=== PATIENT | male | born 1950 | race Caucasian/White ===

== ENCOUNTER 2017-11-21 10:00 | Inpatient (IN) ==
[2017-11-21 12:02] LABS: Basophils # (Auto) 0.1 K/mcL (0.0-0.3); Basophils % (Auto) 0.8 % (0.0-2.0); Eosinophils # (Auto) 0.1 K/mcL (0.0-0.7); Eosinophils % (Auto) 1.7 % (0.0-7.0); Granulocytes % (Auto) 55.5 % (38.0-78.0); Lymphocytes % (Auto) 36.3 % (15.5-49.0); Mean Cell Volume 85.8 fL (80.0-100.0); Mean Corpuscular HGB Conc 33.9 g/dL (31.0-36.0); Mean Corpuscular Hemoglobin 29.1 pg (26.0-34.0); Monocytes # (Auto) 0.5 K/mcL (0.1-0.9); Monocytes % (Auto) 5.7 % (1.0-12.0); Platelet Count 197 K/mcL (140-440); RBC 4.76 M/mcL (4.50-5.90); Red Cell Distribution Width 13.3 % (11.5-14.5)
[2017-11-21 12:14] LABS: Blood Urea Nitrogen 29 mg/dl (8-23)
[2017-11-21 13:17] LABS: Appearance,Urine CLEAR; Bacteria,Urine 0 /hpf (0); Bilirubin,Urine NEG (NEG); Color,Urine YELLOW; Glucose,Urine (UA) NEGATIVE (NEG); Leukocyte Esterase,Urine NEG /uL (NEG); Mucus,Urine FEW /hpf (0); Protein,Urine NEG (NEG); Urine Blood NEG mg/dL (<0.03); Urine Hyaline Cast 7 /lpf (0-2); Urine RBC 2 /hpf (0-1); Urine Squamous Epithelial Cell < 1 /hpf (0-4); Urine WBC 1 /hpf (0-4); Urobilinogen,Urine NEG (NEG)
[2017-11-27] MEDS ORDERED: CELECOXIB 200 MG CAPSULE PO SCH (06:00)
[2017-11-27] MEDS ORDERED: oxyCODONE 10 MG TAB.ER.12H PO SCH (06:00)
[2017-11-27] MEDS ORDERED: 0.9 % SODIUM CHLORIDE 9 ML, KETOROLAC 30 MG, ROPIVACAINE HCL/PF 49.5 ML, EPINEPHrine 0.... IJ SCH (06:00)
[2017-11-27] MEDS ORDERED: PREGABALIN 75 MG CAPSULE PO SCH (06:00)
[2017-11-27] MEDS ORDERED: ceFAZolin 1 GM VIAL IV SCH (06:00)
[2017-11-27] MEDS ORDERED: GENTAMICIN SULFATE 800 MG/20 ML VIAL IR ONE (08:49)
[2017-11-27] MEDS ORDERED: GLYCOPYRROLATE 0.2 MG/ML VIAL IV ONE (09:25)
[2017-11-27] MEDS ORDERED: LIDOCAINE HCL/PF 100 MG/5 ML SYRINGE IV ONE (09:25)
[2017-11-27] MEDS ORDERED: MIDAZOLAM 5 MG/5 ML VIAL ONE (09:25)
[2017-11-27] MEDS ORDERED: DEXAMETHASONE 10 MG/ML VIAL ONE (09:25)
[2017-11-27] MEDS ORDERED: PROPOFOL 200 MG/20 ML VIAL IV ONE (09:25)
[2017-11-27] MEDS ORDERED: ONDANSETRON 4 MG/2 ML VIAL ONE (09:25)
[2017-11-27] MEDS ORDERED: BISACODYL 10 MG SUPP.RECT PR PRN (10:53)
[2017-11-27] MEDS ORDERED: MAGNESIUM HYDROXIDE 30 ML ORAL.SUSP PO PRN (10:53)
[2017-11-27] MEDS ORDERED: ONDANSETRON 4 MG/2 ML VIAL IV PRN ×2 (10:53→10:57)
[2017-11-27] MEDS ORDERED: BENZOCAINE/MENTHOL 1 LOZENGE PO PRN ×2 (10:53→10:57)
[2017-11-27] MEDS ORDERED: POLYETHYLENE GLYCOL 3350 17 GM PACKET PO PRN (10:53)
[2017-11-27] MEDS ORDERED: TRANEXAMIC ACID 1,000 MG/10 ML VIAL IV ONE (10:53)
[2017-11-27] MEDS ORDERED: ACETAMINOPHEN 325 MG TABLET PO PRN (10:53)
[2017-11-27] MEDS ORDERED: FLEETS ADULT ENEMA PR PRN (10:53)
[2017-11-27] MEDS ORDERED: HYDROmorphone 2 MG/ML VIAL IV PRN ×2 (10:53→10:57)
[2017-11-27] MEDS ORDERED: TEMAZEPAM 15 MG CAPSULE PO PRN (10:53)
--- NOTE | 2017-11-27 10:53 | Brief Operative Note ---
Date of procedure: 11/27/17 Pre-op diagnosis: left knee djd severe Post-op diagnosis: same Procedure: left tka Grafts/Implants: Yes Anesthesia: VIJAYA Surgeon: Faheem Marcos Airplane Tube Builder: Dinesh Juárez Estimated blood loss (cc): 20 Tourniquet Time (Minutes): 62 Specimens Removed/Pathology: none sent Condition: stable Disposition: PACU
[2017-11-27] MEDS ORDERED: ATROPINE SULFATE 0.4 MG/ML VIAL IV PRN (10:57)
[2017-11-27] MEDS ORDERED: FLUMAZENIL 0.1 MG/ML ML IV PRN (10:57)
[2017-11-27] MEDS ORDERED: METHOCARBAMOL 1,000 MG/10 ML VIAL IV PRN (10:57)
[2017-11-27] MEDS ORDERED: diphenhydrAMINE 50 MG/ML VIAL IV PRN (10:57)
[2017-11-27] MEDS ORDERED: IPRATROPIUM/ALBUTEROL 3 ML AMPUL.NEB NEB PRN (10:57)
[2017-11-27] MEDS ORDERED: METOPROLOL TARTRATE 5 MG/5 ML VIAL IV PRN (10:57)
[2017-11-27] MEDS ORDERED: PROMETHAZINE 25 MG/ML VIAL IV PRN (10:57)
[2017-11-27] MEDS ORDERED: ePHEDrine 50 MG/ML AMPUL IV PRN (10:57)
[2017-11-27] MEDS ORDERED: fentaNYL 100 MCG/2 ML VIAL IV PRN (10:57)
[2017-11-27] MEDS ORDERED: NALOXONE HCL 0.4 MG/ML VIAL IV PRN (10:57)
[2017-11-27] MEDS ORDERED: MEPERIDINE 25 MG/ML SYRINGE IV PRN (10:57)
[2017-11-27] MEDS ORDERED: LACTATED RINGERS 1,000 ML IV SCH (11:00)
--- NOTE | 2017-11-27 11:51 | XRay Report ---
HISTORY: : Post-Op Total Knee FINDINGS: There is well-positioned total knee prosthesis. There is a fragment of a screw in the metaphyseal region of the distal femur. This may be from prior ACL repair. Large spur is present along the inferior border of the patella with a smaller spur along the superior margin. IMPRESSION: Well-positioned left knee prosthesis Interpreted and Authenticated by: Girma Wyatt 11/27/17
--- NOTE | 2017-11-27 12:09 | Operative Note ---
DATE OF OPERATION: 11/27/2017 PREOPERATIVE DIAGNOSIS: Left knee degenerative arthritis throughout. POSTOPERATIVE DIAGNOSIS: Left knee degenerative arthritis throughout. PROCEDURE: Total knee arthroplasty using the ID.me robot. SURGEON: Faheem Marcos M.D. MILLING GENERAL SUPERINTENDENT: Dinesh Juárez PA-C. ANESTHESIA: General LMA anesthesia. COMPLICATIONS: None. TOURNIQUET TIME: 62 minutes. IMPLANTS: Size 5 femur and size 6 tibial baseplate with a 9 mm poly insert and a 39 mm patellar button. DESCRIPTION OF PROCEDURE: The patient was brought to the operating room and put to sleep with general LMA anesthesia. A timeout was performed. We confirmed the operative site. Leg was exsanguinated and tourniquet inflated to 250 pounds of pressure. A midline incision was made, midvastus approach performed. Two pins above and below the knee were placed with the arrays. We set the center of hip rotation, medial and lateral malleolus. Intraarticular pins were registered, as well as thirty points on the femur and tibia. We balanced the knee at 90 and 15 degrees. Then we used the robot to help calculate position of the implant. Once we did this and everything balanced very nicely, we proceeded with the case. The tibial cut was performed first, registering the robot and the tibial cut made. Then we registered the femur and robot again and made our anterior and posterior and anterior chamfer cuts. We changed the blade and then registered the robot again and cut the distal cut and the posterior chamfer. These bony fragments were removed. The robot was removed and removed any remaining osteophytes. We then set rotation of the tibial base plate using the robot, size 6 tibial component and we drilled. We had to remove an interference screw for the ACL. Once this was done, we then cemented into place after we trialed the femur. The 9 appeared to be very stable. The robot noted 0 degrees extension and flexion also calculated 3 degrees of varus. We irrigated thoroughly and then cemented into place a size 6 tibial baseplate, size 5 femur, 9 mm poly. The patella was cut to 16 mm, and a 39 mm patellar button was placed. Excellent fixation. We took the knee and put it at 45 degrees until all the cement was dry. We then reinspected the knee and then removed any loose debris. A thorough irrigation was performed. Midvastus approach was closed with #1 Stratafix suture x2. Skin was closed with 2-0 Vicryl and 3-0 Monocryl. Portals were closed with 4-0 nylon. The patient tolerated this well. Sterile bandage was applied. [email or web address] Job ID: [id number] Doc ID: [id number] Faheem Marcos MD
[2017-11-27] MEDS: 0.45 % SODIUM CHLORIDE 1,000 ML IV SCH ×2 (12:15→22:02)
[2017-11-27] MEDS: KETOROLAC 15 MG/ML VIAL IV SCH ×2 (12:22→18:34)
[2017-11-27] MEDS: 0.9 % SODIUM CHLORIDE 10 ML SYRINGE IV SCH ×2 (13:17→20:46)
[2017-11-27] MEDS: oxyCODONE HCL 5 MG TABLET PO PRN ×2 (15:07→22:02)
[2017-11-27] MEDS: ceFAZolin 1 GM VIAL IV SCH (15:55)
[2017-11-27] MEDS: ASPIRIN 325 MG ENTERIC COATED TABLET PO SCH (20:45)
[2017-11-27] MEDS: DOCUSATE SODIUM 100 MG CAPSULE PO SCH (20:45)
[2017-11-27] MEDS ORDERED: SENNOSIDES 1 TABLET PO SCH (21:00)
[2017-11-28] MEDS: KETOROLAC 15 MG/ML VIAL IV SCH ×3 (00:05→12:26)
[2017-11-28] MEDS: ceFAZolin 1 GM VIAL IV SCH (00:05)
[2017-11-28] MEDS: oxyCODONE HCL 5 MG TABLET PO PRN ×3 (03:48→12:27)
[2017-11-28] MEDS: 0.9 % SODIUM CHLORIDE 10 ML SYRINGE IV SCH ×2 (04:58→14:00)
[2017-11-28] MEDS: 0.45 % SODIUM CHLORIDE 1,000 ML IV SCH (07:08)
--- NOTE | 2017-11-28 07:44 | Discharge Summary ---
Ortho Discharge - TKA - Patient Instructions Diet: Regular Diet Activity: activity as tolerated, weight bearing as tolerated Total Knee Protocol: For Total Knee: Start ROM GRACIE with stationary bike or rocking chair. Work on gaining full extension of knee. Posterior dislocation precautions provided. Hip abductor strengthening and gait training instructions provided. Apply Cryocuff as instructed. Dressing Care: May shower in 2 days, Aquacel Ag - leave on for 5 days - Follow Up Plan Follow Up Appointments: Taran Wheeler PA-C [Physician Office Professional] - 12/18/17 1:40 pm Disposition: Home, Self-Care Prognosis: Good Rehab Potential: Good I certify that the patient requires SNF services: No Overall status at discharge: patient is progressing back to baseline - Orders For Discharge Prescriptions: oxyCODONE HCL [Roxicodone] 5 - 10 mg PO Q4HP PRN #60 tab PRN Reason: Pain Level 3-6 Additional Discharge Orders: Physical Therapy at Discharge - TKA Location: None Selected CPM Discharge Order Location: None Selected Toilet Riser Discharge Order Location: None Selected Walker Location: None Selected
[2017-11-28] MEDS: ASPIRIN 325 MG ENTERIC COATED TABLET PO SCH (08:24)
[2017-11-28] MEDS: DOCUSATE SODIUM 100 MG CAPSULE PO SCH (08:24)
[2017-11-28] MEDS ORDERED: LISINOPRIL 20 MG TABLET PO SCH (09:00)
[2017-11-28] MEDS ORDERED: LISINOPRIL 10 MG TABLET PO SCH (09:00)
== END 2017-11-28 14:02 | disposition home or self-care (01) | DRG 470 ==
LOC: MEDSUR 11-27 06:26
PROVIDERS: ADMIT Orthopaedic Surgery; ATTEND Orthopaedic Surgery

== ENCOUNTER 2018-11-23 08:48 | Inpatient (IN) ==
[2018-11-23] MEDS ORDERED: ONDANSETRON 4 MG/2 ML VIAL IV ONE (09:11)
[2018-11-23] MEDS ORDERED: LACTATED RINGERS 1,000 ML IV ONE ×2 (09:11→10:59)
--- NOTE | 2018-11-23 09:14 | Emergency Department Note ---
Nausea/Vomiting/Diarrhea HPI - General Chief complaint: Nausea/Vomiting/Diarrhea Stated complaint: Diarrhea since Monday 20lbs weight loss Time Seen by Provider: 11/23/18 09:08 Source: patient Mode of arrival: ambulatory Limitations: no limitations - History of Present Illness HPI Narrative: This patient has had nausea vomiting diarrhea and abdominal cramps for the last 3 days. He thinks he is lost 20 pounds with sounds a little bit extreme. Diarrhea has been watery without blood or mucus. He did eat some chicken and is not sure how well cooked it was. No other exposures that he is a suspicious of. Has no chronic GI problems. Does feel thirsty and dehydrated. - Related Data Home Medications Medication Instructions Recorded Confirmed Lisinopril [Zestril] 10 mg PO DAILY 11/21/17 11/27/17 Lisinopril [Zestril] 20 mg PO DAILY 11/21/17 11/27/17 Previous Rx's Medication Instructions Recorded oxyCODONE HCL [Roxicodone] 5 - 10 mg PO Q4HP PRN #60 tab 11/28/17 Allergies Allergy/AdvReac Type Severity Reaction Status Date / Time No Known Drug Allergies Allergy Verified 11/04/18 19:41 Review of Systems All systems ED: reviewed and negative except as stated. Past Medical History - Past Medical History Medical history: Reports: arthritis, hypertension Surgical history ED: Reports: orthopedic, other, tonsillectomy - Social History smoking status: Never smoker Physical Exam Limitations: no limitations General appearance: alert Head: atraumatic Eye: Present: normal appearance ENT: normal exam Neck: Present: normal inspection Chest: Present: normal inspection Respiratory: Present: normal lung sounds bilaterally Cardiovascular: Present: regular rate, normal rhythm, normal heart sounds Abdominal: Present: soft. Absent: distention, tenderness Neurological: Present: alert Psychiatric: Present: normal affect Skin: Present: warm, dry Course Vital Signs Temperature 98.9 F 11/23/18 08:49 Pulse Rate 117 H 11/23/18 08:49 Respiratory Rate 18 11/23/18 08:49 Blood Pressure 97/66 11/23/18 08:49 Pulse Oximetry (%) 93 11/23/18 08:49 Temperature 98.9 F 11/23/18 08:49 Pulse Rate 103 H 11/23/18 12:57 Respiratory Rate 23 H 11/23/18 12:57 Blood Pressure 134/85 11/23/18 12:31 Pulse Oximetry (%) 92 11/23/18 12:57 Nausea/Vomiting/Diarrhea - [facility] Narrative Medical decision making narrative: Patient seems to have acute renal failure in part of it may be prerenal but he had a normal creatinine a year ago and today at 6. I discussed case with both the interface developer the hospitalist and he will be admitted to the hospital. - Lab Data Lab results reviewed: Yes I reviewed the patient's lab results. Result diagrams: 11/23/18 09:27 11/23/18 10:54 Lab Results 11/23/18 11/23/18 11/23/18 Range/Units 09:27 09:27 10:54 WBC 11.6 H (4.5-11.0) K/mcL RBC 7.00 H (4.50-5.90) M/mcL Hgb 19.6 H (13.5-16.5) g/dL Hct 58.7 H (41.0-55.0) % MCV 83.9 (80.0-100.0) fL MCH 28.0 (26.0-34.0) pg MCHC 33.4 (31.0-36.0) g/dL RDW 13.6 (11.5-14.5) % Plt Count 266 (140-440) K/mcL MPV 9.6 (7.4-10.4) fL Gran % 71.1 (38.0-78.0) % Lymph % (Auto) 17.0 (15.5-49.0) % [place] % (Auto) 11.8 (1.0-12.0) % Eos % (Auto) 0.1 (0.0-7.0) % Baso % (Auto) 0 (0.0-2.0) % Gran # 8.3 H (1.8-8.0) K/mcL Lymph # (Auto) 2.0 (1.5-4.8) K/mcL [place] # (Auto) 1.4 H (0.1-0.9) K/mcL Eos # (Auto) 0 (0.0-0.7) K/mcL Baso # (Auto) 0 (0.0-0.3) K/mcL Sodium TNP 130 L Potassium TNP 3.1 L Chloride TNP 86 L Carbon Dioxide TNP 16 L Anion Gap TNP 28.0 H BUN TNP 73 H Creatinine TNP 6.0 H* GFR Calculation TNP 9 Glucose TNP 160 H Calcium TNP 9.5 Total Bilirubin TNP 0.8 AST TNP 19 ALT TNP 19 Alkaline Phosphatase TNP 83 Total Protein TNP 8.5 H Albumin TNP 3.9 Globulin TNP 4.6 H Albumin/Globulin Ratio TNP 0.8 L Disposition Pt seen by MANAGER OF INTERNAL/PA only: No Clinical Impression: Gastroenteritis, Acute renal failure Disposition: Xfer As Inpt ([facility]) Condition: Good Referrals: Suki Carney MD [Primary Care Provider] - Time of Disposition: 13:34
[2018-11-23 10:14] LABS: Basophils # (Auto) 0 K/mcL (0.0-0.3); Basophils % (Auto) 0 % (0.0-2.0); Eosinophils # (Auto) 0 K/mcL (0.0-0.7); Eosinophils % (Auto) 0.1 % (0.0-7.0); Granulocytes % (Auto) 71.1 % (38.0-78.0); Hematocrit 58.7 % (41.0-55.0); Hemoglobin 19.6 g/dL (13.5-16.5); Mean Cell Volume 83.9 fL (80.0-100.0); Mean Corpuscular HGB Conc 33.4 g/dL (31.0-36.0); Mean Platelet Volume 9.6 fL (7.4-10.4); Monocytes # (Auto) 1.4 K/mcL (0.1-0.9); Monocytes % (Auto) 11.8 % (1.0-12.0); Platelet Count 266 K/mcL (140-440); Red Cell Distribution Width 13.6 % (11.5-14.5); WBC 11.6 K/mcL (4.5-11.0)
[2018-11-23] MEDS ORDERED: PHENobarb/HYOSCY/ATROPINE/SCOP 1 DOSE BOTTLE PO ONE (11:28)
[2018-11-23] MEDS ORDERED: ESOMEPRAZOLE 40 MG VIAL IV SCH (11:30)
[2018-11-23 12:05] LABS: ALT/SGPT 19 U/l (0-40); AST/SGOT 19 U/l (0-37); Albumin 3.9 gm/dL (3.2-5.2); Albumin/Globulin Ratio 0.8 (1.0-2.3); Alkaline Phosphatase 83 U/L (39-117); Bilirubin,Total 0.8 mg/dL (0.0-1.0); Blood Urea Nitrogen 73 mg/dl (8-23); Calcium 9.5 mg/dl (8.6-10.4); Carbon Dioxide 16 mmol/L (22-30); Chloride 86 mmol/L (96-108); Globulin 4.6 gm/dL (2.2-3.7); Glomerular Filtration Rate 9; Glucose 160 mg/dL (70-105)
--- NOTE | 2018-11-23 13:03 | Nephrology Consult Note ---
History of Present Illness - Reason for Consult Patient information: Note initiated : 11/23/18 at 1:01 pm Patient: Jonas Noble 68 y/o M admitted on for Diarrhea Since Monday 20 lb Weight Loss. Consult date: 11/23/18 acute renal failure, hyponatremia, hypokalemia, metabolic acidosis Requesting physician: Camden Carter - Chief Complaint Dirrhea - History of Present Illness Jonas Noble is a 68-year-old male with hypertension, chronic kidney disease stage 3 and arthritis presented to ED on 11/23/18 for nausea, vomiting, diarrhea and abdominal cramps for 3 days and being admitted. The patient has no history of kidney problems and not seen by a senior naval parachutist in the past. He reported decreased urine output but no other symptoms. Review of Systems Constitutional: fatigue, lethargy Nose, mouth and throat: no nasal congestion, no sore throat Cardiovascular: no chest pain, no palpatations Respiratory: no cough, no dyspnea Gastrointestinal: abdominal pain, diarrhea, nausea, vomiting Genitourinary: no dysuria, no hematuria Musculoskeletal: no back pain, no joint swelling Integumentary: no rash, no wounds Neurological: no confusion, no focal weakness Psychiatric: no anxiety, no panic attacks Endocrine: no cold intolerance, no heat intolerance Hematologic/Lymphatic: no easy bleeding, no easy bruising Allergic/Immunologic: no tongue swelling, no uticaria Past History Past medical history: Hypertension Chronic kidney disease stage 3 Arthritis Past surgical history: Left total knee arthroplasty Past family history: No history of kidney disease in family Past social history: Never smoker Medications and Allergies Home Medications Medication Instructions Recorded Confirmed Type Lisinopril [Zestril] 10 mg PO DAILY 11/21/17 11/27/17 History Lisinopril [Zestril] 20 mg PO DAILY 11/21/17 11/27/17 History oxyCODONE HCL [Roxicodone] 5 - 10 mg PO Q4HP PRN #60 tab 11/28/17 Rx Allergies Allergy/AdvReac Type Severity Reaction Status Date / Time No Known Drug Allergies Allergy Verified 11/04/18 19:41 Exam - Vital Signs Vital signs: Temp Pulse Resp BP Pulse Ox 98.9 F 115 H 19 134/85 93 11/23/18 08:49 11/23/18 09:23 11/23/18 12:31 11/23/18 12:31 11/23/18 12:31 - General Appearance General appearance: appears started age, fatigue EENT: mucous membranes dry Neck: supple Respiratory: clear Cardiology: no edema Gastrointestinal: no tenderness Integumentary: cool/clammy Neurologic: no focal deficit, alert and oriented x3 Musculoskeletal: no deformities Psychiatric: mood/affect appropriate, cooperative Results - Lab Results 11/23/18 09:27 11/23/18 10:54 Most recent lab results Calcium 9.5 mg/dl (8.6-10.4) 11/23/18 10:54 Assessment and Plan (1) Acute on chronic renal failure Jonas Noble is a 68-year-old male with hypertension, chronic kidney disease stage 3 and arthritis presented to ED on 11/23/18 for nausea, vomiting, diarrhea and abdominal cramps for 3 days and being admitted. Acute kidney injury on chronic kidney disease stage 3 with hypokalemia, high anion gap metabolic acidosis and hyponatremia associated with severe dehydration, present on arrival. Work up: Urinalysis pending. Renal US requested. Recommendations/Plan: IV fluid resuscitation and electrolyte replacement. No acute hemodialysis need. Hold MITCH. Avoid NSAIDs, nephrotoxic medications and IV contrast. Monitor BMP and urine output. Status: Acute Qualifiers: Acute renal failure type: unspecified Chronic kidney disease stage: stage 3 (moderate) Qualified Code(s): N17.9 - Acute kidney failure, unspecified; N18.3 - Chronic kidney disease, stage 3 (moderate) (2) Hyponatremia Please see above Status: Acute Priority: Medium (3) Metabolic acidosis Please see above Status: Acute Priority: Medium (4) Hypokalemia Please see above Status: Acute Priority: Medium
[2018-11-23 13:54] LABS: Appearance,Urine CLOUDY; Bacteria,Urine 0 /hpf (0); Bilirubin,Urine NEG (NEG); Color,Urine YELLOW; Culture Indicated,Urine NO; Glucose,Urine (UA) 50 mg/dL (NEG); Ketones,Urine NEG (NEG); Leukocyte Esterase,Urine NEG /uL (NEG); Mucus,Urine MOD /hpf (0); Nitrate,Urine NEG (NEG); Protein,Urine 100 mg/dL (NEG); Specific Gravity,Urine 1.018 (1.000-1.035); Urine Blood NEG mg/dL (<0.03); Urine Hyaline Cast 97 /lpf (0-2); Urine RBC 0 /hpf (0-1); Urine Squamous Epithelial Cell 0 /hpf (0-4); Urine WBC 7 /hpf (0-4); Urobilinogen,Urine NEG (NEG)
--- NOTE | 2018-11-23 14:25 | Internal Med History&Physical ---
Medical - H&P: [facility] Patient information: Note initiated : 11/23/18 at 2:20 pm Service Date, if different from initiated Date: [] Patient: Jonas Noble a 68 y/o M admitted on for Diarrhea Since Monday 20 lb Weight Loss. Chief Complaint: [] Chief complaint: Diarrhea and weakness History of present illness: Mr. Noble is a 68 year old M with no significant medical history except for hypertension who presents with profuse persistent watery diarrhea over the last few days that started Monday and has resulted over 20 pound weight loss. He is experiencing diarrhea every 30 minutes and has gotten progressively weak fatigue lethargic. He is hard developing generalized cramps unable to function. Patient denies sick contacts or recent change in medication. He further denies [id number] medication or travel outside [facility] or attending [employer]. He denies eating uncooked or raw meats or drinking out of spring. Patient denies associated fever or blood in stool or hematemesis. He experienced minimal nausea but no arthralgia or rash. He further denies prior similar episodes of hospitalization or history of inflammatory bowel disease. Initial work-up in the ER was consistent with acute renal failure with a creatinine of 6, potassium 3.1, anion gap acidosis 28 with a bicarb 16. Stool samples were sent. Patient was started on crystalloids and nephrology was consulted. Hospitalist service was requested for admission At the time of evaluation patient is alert and oriented. He was able to endorse a history as above. Review of systems 10 point review system was performed and is negative except was discussed above Medical - H&P: PMH Medical history: Hypertension Obesity degenerative joint disease Chronic kidney disease stage III Surgical history: Left TKA Pertinent family history: Adopted Social history: No history of smoking or alcohol Lives alone Medical - H&P: Meds Home Medications Medication Instructions Recorded Confirmed Type Lisinopril [Zestril] 30 mg PO DAILY 11/21/17 11/23/18 History Multivitamin Liquid 30 ml PO DAILY 11/23/18 11/23/18 History Allergies Allergy/AdvReac Type Severity Reaction Status Date / Time No Known Drug Allergies Allergy Verified 11/04/18 19:41 Medical - H&P: Exam - Constitutional Vitals: Temp Pulse Resp BP Pulse Ox 98.9 F 103 H 15 112/73 95 11/23/18 08:49 11/23/18 12:57 11/23/18 14:01 11/23/18 14:01 11/23/18 14:01 General appearance: morbidly obese Exam: Alert and oriented Head normocephalic Neck no lymphadenopathy Oral cavity dry No ear nose discharge Eye movement symmetrical S1-S2 regular rhythm, tachycardia Diminished breath sounds bases Abdomen minimally distended but soft nontender Lower extremity no cyanosis clubbing, dry skin No joint swelling erythema Skin no suspicious lesion Psych alert cooperative Neuro nonfocal Medical - H&P: Reslt - Labs CBC & Chem 7: 11/23/18 09:27 11/23/18 10:54 Labs: Short CBC 11/23/18 Range/Units 09:27 WBC 11.6 H (4.5-11.0) K/mcL Hgb 19.6 H (13.5-16.5) g/dL Hct 58.7 H (41.0-55.0) % Plt Count 266 (140-440) K/mcL BMP 11/23/18 11/23/18 09:27 10:54 Sodium TNP 130 L Potassium TNP 3.1 L Chloride TNP 86 L Carbon Dioxide TNP 16 L BUN TNP 73 H Creatinine TNP 6.0 H* Glucose TNP 160 H Calcium TNP 9.5 Liver Function 11/23/18 11/23/18 Range/Units 09:27 10:54 Total Bilirubin TNP 0.8 AST TNP 19 ALT TNP 19 Alkaline Phosphatase TNP 83 Albumin TNP 3.9 Urine 11/23/18 Range/Units 12:55 Urine Color Yellow Urine Appearance Cloudy Urine pH 5.0 (5.0-9.0) Ur Specific [place] 1.018 (1.000-1.035) Urine Protein 100 A (NEG) mg/dL Urine Glucose (UA) 50 A (NEG) mg/dL Medical - H&P: A/P (1) Acute on chronic renal failure Current visit: Yes Status: Acute * Acute renal failure-likely prerenal secondary to profuse watery diarrhea and major volume loss. Creatinine at 6. Renal ultrasound, nephrology consult. Further work-up per nephrology. Continue crystalloids and monitor renal function every 12 BMP. Avoid nephrotoxins. * Anion gap metabolic acidosis with hypokalemia, secondary to volume depletion/bicarbonate loss from diarrhea. Continue gradual replacement. Nephrology on board * Volume depletion secondary to diarrhea. Continue crystalloids * Severe diarrhea-stool studies/supportive management * History of hypertension hold MITCH inhibitors in light of acute renal failure * Full code * Prophylaxis heparin Plan * Volume replacement * Electrolyte replacement * renal function monitoring * Hold MITCH inhibitor/avoid NSAIDs and nephrotoxins * Renal ultrasound * Nephrology consult
[2018-11-23] MEDS ORDERED: traZODone HCL 50 MG TABLET PO PRN (14:45)
[2018-11-23] MEDS ORDERED: ONDANSETRON 4 MG/2 ML VIAL IV PRN (14:45)
[2018-11-23] MEDS ORDERED: MAGNESIUM SULFATE 2 GM/50 ML BAG IV PRN (14:45)
[2018-11-23] MEDS ORDERED: ACETAMINOPHEN 325 MG TABLET PO PRN (14:45)
--- NOTE | 2018-11-23 15:21 | Ultrasound Report ---
CLINICAL INFORMATION: acute on chronic renal failure COMPARISON: None. FINDINGS: Both kidneys are normal and symmetric in size, position and configuration: The right is 11 x 5 cm and the left is 11 x 5.9 cm. Both kidneys are moderately hyperechoic compatible with medical renal disease. There are no focal solid or cystic lesions no stones or other process. Arterial blood flow is normal and symmetric in both kidneys on color Doppler. Patient voided prior to exam: There was only 17 cc the bladder. No focal bladder lesions. Prostatic volume is 39 cc IMPRESSION: Moderately hyperechoic kidneys compatible with medical renal disease. Prostate is mildly enlarged with a volume of 39 cc (upper range of normal: 30 cc ( Interpreted and Authenticated by: Alonzo Canchola 11/23/18
[2018-11-23] MEDS: LACTATED RINGERS 1,000 ML IV SCH (15:58)
[2018-11-23] MEDS: 0.9 % SODIUM CHLORIDE 10 ML SYRINGE IV SCH (17:08)
[2018-11-23] MEDS ORDERED: POTASSIUM CHLORIDE 80 MEQ in DEXTROSE 5% IN WATER 1,000 ML IV ONE (18:00)
[2018-11-23] MEDS: HEPARIN 5,000 UNIT/ML VIAL SQ SCH (20:08)
[2018-11-23 23:40] LABS: ALT/SGPT 19 U/l (0-40); AST/SGOT 27 U/l (0-37); Albumin 3.6 gm/dL (3.2-5.2); Albumin/Globulin Ratio 0.8 (1.0-2.3); Alkaline Phosphatase 78 U/L (39-117); Bilirubin,Direct < 0.2 mg/dL (0.0-0.3); Bilirubin,Total 0.7 mg/dL (0.0-1.0); Blood Urea Nitrogen 86 mg/dl (8-23); Carbon Dioxide 18 mmol/L (22-30); Chloride 86 mmol/L (96-108); Globulin 4.4 gm/dL (2.2-3.7); Glomerular Filtration Rate 9; Glucose 129 mg/dL (70-105); Lactate Dehydrogenase 339 U/L (94-250); Triglycerides 305 mg/dl (<150); Uric Acid 14.3 mg/dL (2.5-8.0)
[2018-11-24] MEDS: LACTATED RINGERS 1,000 ML IV SCH ×3 (01:47→22:22)
[2018-11-24] MEDS: 0.9 % SODIUM CHLORIDE 10 ML SYRINGE IV SCH ×4 (05:29→17:00)
[2018-11-24 06:22] LABS: Hematocrit 50.6 % (41.0-55.0); Hemoglobin 16.8 g/dL (13.5-16.5); Mean Cell Volume 85.6 fL (80.0-100.0); Mean Corpuscular HGB Conc 33.1 g/dL (31.0-36.0); Mean Platelet Volume 8.7 fL (7.4-10.4); Platelet Count 204 K/mcL (140-440); RBC 5.91 M/mcL (4.50-5.90); Red Cell Distribution Width 13.5 % (11.5-14.5); WBC 10.8 K/mcL (4.5-11.0)
[2018-11-24 06:44] LABS: ALT/SGPT 15 U/l (0-40); AST/SGOT 18 U/l (0-37); Albumin 3.5 gm/dL (3.2-5.2); Albumin/Globulin Ratio 0.8 (1.0-2.3); Alkaline Phosphatase 79 U/L (39-117); Bilirubin,Direct < 0.2 mg/dL (0.0-0.3); Bilirubin,Total 0.8 mg/dL (0.0-1.0); Blood Urea Nitrogen 86 mg/dl (8-23); Carbon Dioxide 19 mmol/L (22-30); Chloride 87 mmol/L (96-108); Globulin 4.3 gm/dL (2.2-3.7); Glomerular Filtration Rate 11; Glucose 118 mg/dL (70-105); Lactate Dehydrogenase 259 U/L (94-250); Triglycerides 293 mg/dl (<150); Uric Acid 13.8 mg/dL (2.5-8.0)
--- NOTE | 2018-11-24 06:55 | Nephrology Progress Note ---
Subjective Patient information: Note initiated : 11/24/18 at 6:50 am Patient: Jonas Noble 68 y/o M admitted on 11/23/18 for Diarrhea Since Monday 20 lb Weight Loss. Chief Complaint: Diarrhea Pertinent ROS: Weakness Diarrhea Nausea Abdominal pain Objective - Vital Signs Vital signs: Vital Signs Temp Pulse Pulse Resp BP Pulse Ox 11/24/18 04:10 98.5 F 71 16 126/55 11/24/18 00:00 98.6 F 95 H 16 156/82 100 11/23/18 20:14 98.5 F 98 H 16 154/88 98 11/23/18 16:30 97.7 F 18 147/82 98 11/23/18 16:04 105 H 19 11/23/18 15:59 17 94 11/23/18 15:31 13 133/83 94 11/23/18 15:01 141/84 94 11/23/18 14:46 14 136/75 96 11/23/18 14:31 139/96 98 11/23/18 14:30 20 96 11/23/18 14:01 15 112/73 95 11/23/18 13:36 16 146/99 97 11/23/18 12:57 103 H 23 H 92 11/23/18 12:31 19 134/85 93 11/23/18 12:19 20 93 11/23/18 12:01 18 140/87 96 11/23/18 11:32 20 145/92 99 11/23/18 11:30 17 133/97 98 11/23/18 11:01 133/87 11/23/18 10:31 19 128/84 92 11/23/18 10:02 20 120/78 94 11/23/18 09:23 115 H 95 11/23/18 09:18 116 H 93 11/23/18 09:11 116 H 127/85 93 11/23/18 08:49 98.9 F 117 H 18 97/66 93 Intake and Output 11/23/18 11/24/18 11/24/18 21:59 05:59 13:59 Intake Total 982 Balance 982 Intake: IV 982 Lactated Ringers 1,000 ml @ 100 982 mls/hr IV .Q10H [facility] Rx#: [id number] Other: Urine Appearance Clear Urine Color Bright Yellow Urine Odor Normal Stool Size Small Small Small Stool Color Pale Brown Brown White Green Green Stool Consistency Liquid Watery Loose # Unmeasured Emesis 1 # Bowel Movements 1 1 # of times incontinent of 0 Bowels Weight 252 lb 9.6 oz Intake & Output: Intake & Output 11/23/18 11/24/18 11/24/18 21:59 05:59 13:59 Intake Total 982 Balance 982 Weight 252 lb 9.6 oz Intake: IV 982 Lactated Ringers 1,000 ml @ 100 982 mls/hr IV .Q10H [facility] Rx#: [id number] Other: Urine Appearance Clear Urine Color Bright Yellow Urine Odor Normal Stool Size Small Small Small Stool Color Pale Brown Brown White Green Green Stool Consistency Liquid Watery Loose # Unmeasured Emesis 1 # Bowel Movements 1 1 # of times incontinent of 0 Bowels - General Appearance General appearance: appears started age, fatigue EENT: mucous membranes moist Neck: supple Respiratory: clear Cardiology: no edema Gastrointestinal: no tenderness Integumentary: warm and dry Neurologic: no focal deficit, alert and oriented x3 Musculoskeletal: no deformities Psychiatric: mood/affect appropriate, cooperative - Lab 11/24/18 03:33 11/24/18 03:33 Most recent lab results Calcium 9.0 mg/dl (8.6-10.4) 11/24/18 03:33 Phosphorus 7.0 mg/dL (2.7-4.5) H* 11/24/18 03:33 Magnesium 2.6 mg/dL (1.6-2.5) H 11/24/18 03:33 Assessment and Plan (1) Acute on chronic renal failure Jonas Noble is a 68-year-old male with hypertension, chronic kidney disease stage 3 and arthritis presented to ED on 11/23/18 for nausea, vomiting, diarrhea and abdominal cramps for 3 days and being admitted. Acute kidney injury on chronic kidney disease stage 3 with hypokalemia, high anion gap metabolic acidosis and hyponatremia associated with severe dehydration, present on arrival. Work up: Urinalysis on X: Yellow, Cloudy pH 5.0, SG 1.018, protein 100, occult blood negative, leukocyte esterase negative, urine WBC 7. Renal US on 11/23/18: Moderately hyperechoic kidneys compatible with medical renal disease. Prostate is mildly enlarged with a volume of 39 cc (upper range of normal: 30 cc. Progress: Urine output: Not reported in the past 18 hours. Serum creatinine increased from 6.0 to 5.1 in the past 18 hours. Metabolic acidosis, improved. Hyponatremia. Hypokalemia, resolved. Recommendations/Plan: No acute hemodialysis need. Hold MITCH. Avoid NSAIDs, nephrotoxic medications and IV contrast. Monitor BMP and urine output. Status: Acute Qualifiers: Acute renal failure type: unspecified Chronic kidney disease stage: stage 3 (moderate) Qualified Code(s): N17.9 - Acute kidney failure, unspecified; N18.3 - Chronic kidney disease, stage 3 (moderate) (2) Hyponatremia Please see above Status: Acute Priority: Medium (3) Metabolic acidosis Please see above Status: Acute Priority: Medium
[2018-11-24 08:34] LABS: Band Neutrophils % 14 % (0-10); Lymphocytes % 21 % (15-49); Monocytes % (Manual) 17 % (1-12); Platelet Estimate NORMAL (NORMAL); RBC Morphology NORMAL (NORMAL); Segmented Neutrophils % 48 % (38-78)
[2018-11-24] MEDS: HEPARIN 5,000 UNIT/ML VIAL SQ SCH ×2 (10:25→19:41)
[2018-11-24] MEDS: MULTIVIT,THER IRON,CA,FA & MIN 1 TABLET PO SCH (10:25)
[2018-11-24] MEDS: POTASSIUM CHLORIDE 20 MEQ PACKET PO PRN (10:30)
--- NOTE | 2018-11-24 11:42 | Internal Med Progress Note ---
Medical - PN: Subj Patient information: Note initiated : 11/24/18 at 11:38 am Service Date, if different from initiated Date: [] Patient: Jonas Noble a 68 y/o M admitted on 11/23/18 for Diarrhea Since Monday 20 lb Weight Loss. Chief Complaint: [] Interval history: Mr. Noble is a 68 year old M with no significant medical history except for hypertension who presents with profuse persistent watery diarrhea over the last few days that started Monday and has resulted over 20 pound weight loss. He is experiencing diarrhea every 30 minutes and has gotten progressively weak fatigue lethargic. He is hard developing generalized cramps unable to function. Patient denies sick contacts or recent change in medication. He further denies [id number] medication or travel outside [facility] or attending [employer]. He denies eating uncooked or raw meats or drinking out of spring. Patient denies associated fever or blood in stool or hematemesis. He experienced minimal nausea but no arthralgia or rash. He further denies prior similar episodes of hospitalization or history of inflammatory bowel disease. Initial work-up in the ER was consistent with acute renal failure with a creatinine of 6, potassium 3.1, anion gap acidosis 28 with a bicarb 16. Stool samples were sent. Patient was started on crystalloids and nephrology was consulted. Hospitalist service was requested for admission 11/24-patient clinically improving with diarrhea frequency now once in 2 hours. More formed. On crystalloids. Creatinine down to 5. Potassium up from 3.1- 3.6. Improving anion gap acidosis. Overall volume status improving. Able to tolerate p.o. Continue telemetry monitoring. Nephrology on board. No overnight fever chills or abdominal pain. Stool studies negative so far. Renal ultrasound negative. - Constitutional Vitals: Vital Signs Temp Pulse Resp BP Pulse Ox 98.2 F 71 20 144/70 98 11/24/18 08:01 11/24/18 04:10 11/24/18 08:01 11/24/18 08:01 11/24/18 08:01 Period Temp Pulse Resp BP Sys/Maza Pulse Ox Last 24 Hr 97.7 F-98.6 F 71-105 13-23 112-158/55-99 92-100 Intake and Output 11/23/18 11/24/18 11/24/18 21:59 05:59 13:59 Intake Total 982 1280 Balance 982 1280 Weight 252 lb 9.6 oz Intake & Output: Intake & Output 11/23/18 11/24/18 11/24/18 21:59 05:59 13:59 Intake Total 982 1280 Balance 982 1280 Weight 252 lb 9.6 oz Intake: IV 982 1040 Lactated Ringers 1,000 ml @ 100 982 mls/hr IV .Q10H [facility] Rx#: [id number] Oral 240 Other: Meal Breakfast Percent of Meal Consumed 100% Feeding Ability Independent Urine Appearance Clear Urine Color Bright Yellow Urine Odor Normal Stool Size Small Small Small Stool Color Pale Brown Brown White Green Yellow Stool Consistency Liquid Watery Liquid # Unmeasured Emesis 1 # Bowel Movements 1 1 1 # of times incontinent of 0 Bowels General appearance: no acute distress Exam: Nonlabored breathing Alert oriented No anxiety Resting comfortably No telemetry events Medical - PN: Obj Da - Labs CBC & Chem 7: 11/24/18 03:33 11/24/18 03:33 Labs: Abnormal Lab Results 11/24/18 11/24/18 11/23/18 03:33 03:33 23:00 WBC RBC 5.91 H Hgb 16.8 H Hct Gran # [place] # (Auto) Band Neutrophils % 14 H Monocytes % (Manual) 17 H ESR Sodium 130 L 128 L Potassium Chloride 87 L 86 L Carbon Dioxide 19 L 18 L Anion Gap 24.0 H 24.0 H BUN 86 H 86 H Creatinine 5.1 H* 5.7 H* Glucose 118 H 129 H Uric Acid 13.8 H 14.3 H Phosphorus 7.0 H* 8.0 H* Magnesium 2.6 H 2.8 H Lactate Dehydrogenase 259 H 339 H C-Reactive Protein Total Protein Globulin 4.3 H 4.4 H Albumin/Globulin Ratio 0.8 L 0.8 L Triglycerides 293 H 305 H Urine Protein Urine Glucose (UA) Urine WBC Hyaline Casts 11/23/18 11/23/18 11/23/18 15:25 12:55 10:54 WBC RBC Hgb Hct Gran # [place] # (Auto) Band Neutrophils % Monocytes % (Manual) ESR 37 H Sodium Potassium Chloride Carbon Dioxide Anion Gap BUN Creatinine Glucose Uric Acid Phosphorus Magnesium 2.9 H Lactate Dehydrogenase C-Reactive Protein Total Protein Globulin Albumin/Globulin Ratio Triglycerides Urine Protein 100 A Urine Glucose (UA) 50 A Urine WBC 7 H Hyaline Casts 97 H 11/23/18 11/23/18 11/23/18 10:54 09:29 09:27 WBC 11.6 H RBC 7.00 H Hgb 19.6 H Hct 58.7 H Gran # 8.3 H [place] # (Auto) 1.4 H Band Neutrophils % Monocytes % (Manual) ESR Sodium 130 L Potassium 3.1 L Chloride 86 L Carbon Dioxide 16 L Anion Gap 28.0 H BUN 73 H Creatinine 6.0 H* Glucose 160 H Uric Acid Phosphorus Magnesium Lactate Dehydrogenase C-Reactive Protein 10.8 H Total Protein 8.5 H Globulin 4.6 H Albumin/Globulin Ratio 0.8 L Triglycerides Urine Protein Urine Glucose (UA) Urine WBC Hyaline Casts Meds: Medications Acetaminophen (Tylenol) 650 mg PO Q4-6HP PRN PRN Reason: PAIN/FEVER > 101 Heparin Sodium (Porcine) (Heparin) 5,000 unit SQ Q12 [facility] Last Admin: 11/24/18 10:25 Dose: 5,000 unit Documented by: Lactated Ringer's (Lactated Ringers) 1,000 mls @ 100 mls/hr IV .Q10H [facility] Stop: 11/26/18 22:44 Last Admin: 11/24/18 01:47 Dose: 100 mls/hr Documented by: Magnesium Sulfate (Magnesium Sulfate) 2 gm in 50 mls @ 50 mls/hr IV UD PRN PRN Reason: MG = or < 1.7 Iron Carb/Multivit/[place]/Folic Acid (Multivitamin W/Minerals) 1 tab PO DAILY [facility] Last Admin: 11/24/18 10:25 Dose: 1 tab Documented by: Ondansetron HCl (Zofran) 4 mg IV Q4-6HP PRN PRN Reason: Nausea And Vomiting Potassium Chloride (Klor-Con) 40 meq PO DAILYP PRN PRN Reason: K+ < 3.5 Last Admin: 11/24/18 10:30 Dose: 40 meq Documented by: Sodium Chloride (Saline Flush) 10 ml IV Q8 [facility] Last Admin: 11/24/18 05:30 Dose: Not Given Documented by: Trazodone HCl (Desyrel) 50 mg PO HSP PRN PRN Reason: Insomnia Medical - PN: A/P - Time Spent With Patient Total time spent is greater than 50% in coordination of care (as documented) at patient's floor/unit and/or counseling patient: 25 - 35 minutes (1) Acute on chronic renal failure Status: Acute Assessment and plan: * Acute renal failure-prerenal secondary to diarrhea and volume loss. Creatinine at down from 6-5 . Renal ultrasound unremarkable, nephrology on b oard * Hypokalemia clinically improved with replacement * Anion gap metabolic acidosis -clinically improving with crystalloids * Volume depletion secondary to diarrhea. Continue oral and IV fluids * Severe diarrhea-stool studies negative so far/supportive management * History of hypertension held MITCH inhibitors in light of acute renal failure * Full code * Prophylaxis heparin Plan * Continue volume and electrolyte replacement * renal function monitoring Current Visit: Yes Medical - PN: Qual - VTE Deep Vein Thrombosis/Pulmonary Embolism Present on Admission: No
[2018-11-25] MEDS: 0.9 % SODIUM CHLORIDE 10 ML SYRINGE IV SCH ×4 (00:31→21:28)
[2018-11-25 06:27] LABS: ALT/SGPT 17 U/l (0-40); AST/SGOT 19 U/l (0-37); Albumin 3.2 gm/dL (3.2-5.2); Albumin/Globulin Ratio 0.9 (1.0-2.3); Alkaline Phosphatase 70 U/L (39-117); Bilirubin,Direct < 0.2 mg/dL (0.0-0.3); Blood Urea Nitrogen 71 mg/dl (8-23); Calcium 8.6 mg/dl (8.6-10.4); Carbon Dioxide 21 mmol/L (22-30); Chloride 91 mmol/L (96-108); Globulin 3.6 gm/dL (2.2-3.7); Glomerular Filtration Rate 20; Glucose 113 mg/dL (70-105); Lactate Dehydrogenase 219 U/L (94-250); Phosphorous 3.7 mg/dL (2.7-4.5); Triglycerides 265 mg/dl (<150); Uric Acid 12.7 mg/dL (2.5-8.0)
--- NOTE | 2018-11-25 06:33 | Nephrology Progress Note ---
Subjective Patient information: Note initiated : 11/25/18 at 6:30 am Patient: Jonas Noble 68 y/o M admitted on 11/23/18 for Diarrhea Since Monday 20 lb Weight Loss. Chief Complaint: Weakness Pertinent ROS: Weakness Feels better Objective - Vital Signs Vital signs: Vital Signs Temp Pulse Resp BP Pulse Ox 11/25/18 04:00 98.6 F 93 H 14 137/73 99 11/25/18 00:15 98.4 F 101 H 14 124/80 98 11/24/18 18:52 98.2 F 106 H 20 152/86 96 11/24/18 15:59 97.4 F 20 147/68 98 11/24/18 12:00 98.1 F 16 152/93 99 11/24/18 08:01 98.2 F 20 144/70 98 Intake and Output 11/24/18 11/25/18 11/25/18 21:59 05:59 13:59 Intake Total 802 537 Output Total 1295 2175 Balance -493 -1638 Intake: IV 442 537 Lactated Ringers 1,000 ml @ 100 442 537 mls/hr IV .Q10H [facility] Rx#: [id number] Oral 360 Output: Void Amount 700 1225 Urine/Stool Mix 575 Stool 20 950 Other: Urine Appearance Clear Clear Urine Color Dark Yellow Dark Yellow Urine Odor Normal Normal Stool Size Small Small Stool Color Brown Green Green Stool Consistency Loose Loose # Unmeasured Emesis 1 # Bowel Movements 1 Weight 251 lb Intake & Output: Intake & Output 11/24/18 11/25/18 11/25/18 21:59 05:59 13:59 Intake Total 802 537 Output Total 1295 2175 Balance -493 -1638 Weight 251 lb Intake: IV 442 537 Lactated Ringers 1,000 ml @ 100 442 537 mls/hr IV .Q10H [facility] Rx#: [id number] Oral 360 Output: Void Amount 700 1225 Urine/Stool Mix 575 Stool 20 950 Other: Urine Appearance Clear Clear Urine Color Dark Yellow Dark Yellow Urine Odor Normal Normal Stool Size Small Small Stool Color Brown Green Green Stool Consistency Loose Loose # Unmeasured Emesis 1 # Bowel Movements 1 - General Appearance General appearance: fatigue EENT: mucous membranes moist Neck: supple Respiratory: clear Cardiology: no edema Gastrointestinal: no tenderness Integumentary: warm and dry Neurologic: no focal deficit, alert and oriented x3 Psychiatric: mood/affect appropriate, cooperative - Lab 11/25/18 03:32 11/25/18 03:32 Most recent lab results Calcium 8.6 mg/dl (8.6-10.4) 11/25/18 03:32 Phosphorus 3.7 mg/dL (2.7-4.5) 11/25/18 03:32 Magnesium 2.3 mg/dL (1.6-2.5) 11/25/18 03:32 Assessment and Plan (1) Acute on chronic renal failure Jonas Noble is a 68-year-old male with hypertension, chronic kidney disease stage 3 and arthritis presented to ED on 11/23/18 for nausea, vomiting, diarrhea and abdominal cramps for 3 days and being admitted. Acute kidney injury on chronic kidney disease stage 3 with hypokalemia, high anion gap metabolic acidosis and hyponatremia associated with severe dehydration, present on arrival. Work up: Urinalysis on X: Yellow, Cloudy pH 5.0, SG 1.018, protein 100, occult blood negative, leukocyte esterase negative, urine WBC 7. Renal US on 11/23/18: Moderately hyperechoic kidneys compatible with medical renal disease. Prostate is mildly enlarged with a volume of 39 cc (upper range of normal: 30 cc). Progress: Urine output: 1925+ ml in the past 24 hours. Serum creatinine increased from 5.1 to 3.0 in the past 18 hours. Metabolic acidosis, improved. Hyponatremia. Recommendations/Plan: Hold MITCH. Avoid NSAIDs, nephrotoxic medications and IV contrast. Monitor BMP and urine output. Recommend outpatient nephrology follow up for chronic kidney disease stage 3. Dr. Ortega will take over on Monday. Status: Acute Qualifiers: Acute renal failure type: unspecified Chronic kidney disease stage: stage 3 (moderate) Qualified Code(s): N17.9 - Acute kidney failure, unspecified; N18.3 - Chronic kidney disease, stage 3 (moderate) (2) Hyponatremia Please see above Status: Acute Priority: Medium (3) Metabolic acidosis Please see above Status: Acute Priority: Medium
[2018-11-25 06:47] LABS: Hematocrit 45.9 % (41.0-55.0); Hemoglobin 15.4 g/dL (13.5-16.5); Mean Cell Volume 85.3 fL (80.0-100.0); Mean Corpuscular HGB Conc 33.4 g/dL (31.0-36.0); Mean Platelet Volume 8.7 fL (7.4-10.4); Platelet Count 162 K/mcL (140-440); RBC 5.38 M/mcL (4.50-5.90); Red Cell Distribution Width 13.4 % (11.5-14.5); WBC 8.2 K/mcL (4.5-11.0)
[2018-11-25 06:50] LABS: Band Neutrophils % 4 % (0-10); Eosinophils % (Manual) 1 % (0-7); Lymphocytes % 23 % (15-49); Monocytes % (Manual) 15 % (1-12); Platelet Estimate NORMAL (NORMAL); RBC Morphology NORMAL (NORMAL); Segmented Neutrophils % 57 % (38-78)
[2018-11-25] MEDS: LACTATED RINGERS 1,000 ML IV SCH ×2 (07:03→16:59)
[2018-11-25] MEDS: HEPARIN 5,000 UNIT/ML VIAL SQ SCH ×2 (09:38→20:08)
[2018-11-25] MEDS: MULTIVIT,THER IRON,CA,FA & MIN 1 TABLET PO SCH (09:38)
--- NOTE | 2018-11-25 11:22 | Internal Med Progress Note ---
Medical - PN: Subj Patient information: Note initiated : 11/25/18 at 11:19 am Service Date, if different from initiated Date: [] Patient: Jonas Noble a 68 y/o M admitted on 11/23/18 for Diarrhea Since Monday 20 lb Weight Loss. Chief Complaint: [] Interval history: Mr. Noble is a 68 year old M with no significant medical history except for hypertension who presents with profuse persistent watery diarrhea over the last few days that started Monday and has resulted over 20 pound weight loss. He is experiencing diarrhea every 30 minutes and has gotten progressively weak fatigue lethargic. He is hard developing generalized cramps unable to function. Patient denies sick contacts or recent change in medication. He further denies [id number] medication or travel outside [facility] or attending [employer] feast. He denies eating uncooked or raw meats or drinking out of spring. Patient denies associated fever or blood in stool or hematemesis. He experienced minimal nausea but no arthralgia or rash. He further denies prior similar episodes of hospitalization or history of inflammatory bowel disease. Initial work-up in the ER was consistent with acute renal failure with a creatinine of 6, potassium 3.1, anion gap acidosis 28 with a bicarb 16. Stool samples were sent. Patient was started on crystalloids and nephrology was consulted. Hospitalist service was requested for admission 11/24-patient clinically improving with diarrhea frequency now once in 2 hours. More formed. On crystalloids. Creatinine down to 5. Potassium up from 3.1- 3.6. Improving anion gap acidosis. Overall volume status improving. Able to tolerate p.o. Continue telemetry monitoring. Nephrology on board. No overnight fever chills or abdominal pain. Stool studies negative so far. Renal ultrasound negative. 11/25-improving diarrhea frequency. Starting Imodium. Cultures negative so far. Creatinine down to 3 from 6. Advance to regular diet. Nephrology on board. No overnight fever chills abdominal pain or bloody stool. Potassium 3.3 on replacement. - Constitutional Vitals: Vital Signs Temp Pulse Resp BP Pulse Ox 97.7 F 93 H 20 144/70 96 11/25/18 07:46 11/25/18 04:00 11/25/18 07:46 11/25/18 07:46 11/25/18 07:46 Period Temp Pulse Resp BP Sys/Maza Pulse Ox Last 24 Hr 97.4 F-98.6 F 93-106 14-20 124-152/68-93 96-99 Intake and Output 11/24/18 11/25/18 11/25/18 21:59 05:59 13:59 Intake Total 7121 439 6935 Output Total 1295 2175 1250 Balance Weight 251 lb Intake & Output: Intake & Output 11/24/18 11/25/18 11/25/18 21:59 05:59 13:59 Intake Total 6795 193 7799 Output Total 1295 2175 1250 Balance Weight 251 lb Intake: IV 442 537 868 Lactated Ringers 1,000 ml @ 100 442 537 868 mls/hr IV .Q10H [facility] Rx#: [id number] Oral 860 370 Output: Void Amount 700 1225 500 Urine/Stool Mix 575 Stool 20 950 750 Other: Meal Dinner Breakfast Percent of Meal Consumed 100% 100% Urine Appearance Clear Clear Clear Urine Color Dark Yellow Dark Yellow Bright Yellow Urine Odor Normal Normal Normal Stool Size Small Small Small Stool Color Brown Green Brown Green Green Stool Consistency Loose Loose Liquid # Unmeasured Emesis 1 # Bowel Movements 1 1 # of times incontinent of 0 Bowels General appearance: no acute distress Exam: Alert oriented nonlabored breathing Nondistended abdomen No anxiety Medical - PN: Obj Da - Labs CBC & Chem 7: 11/25/18 03:32 11/25/18 03:32 Labs: Abnormal Lab Results 11/25/18 11/25/18 11/24/18 03:32 03:32 03:33 WBC RBC Hgb Hct Gran # [place] # (Auto) Band Neutrophils % Monocytes % (Manual) 15 H ESR Sodium 130 L 130 L Potassium Chloride 91 L 87 L Carbon Dioxide 21 L 19 L Anion Gap 18.0 H 24.0 H BUN 71 H 86 H Creatinine 3.0 H 5.1 H* Glucose 113 H 118 H Uric Acid 12.7 H 13.8 H Phosphorus 7.0 H* Magnesium 2.6 H Lactate Dehydrogenase 259 H C-Reactive Protein Total Protein Globulin 4.3 H Albumin/Globulin Ratio 0.9 L 0.8 L Triglycerides 265 H 293 H Urine Protein Urine Glucose (UA) Urine WBC Hyaline Casts 08/07/1011/23/18 11/23/18 03:33 23:00 15:25 WBC RBC 5.91 H Hgb 16.8 H Hct Gran # [place] # (Auto) Band Neutrophils % 14 H Monocytes % (Manual) 17 H ESR 37 H Sodium 128 L Potassium Chloride 86 L Carbon Dioxide 18 L Anion Gap 24.0 H BUN 86 H Creatinine 5.7 H* Glucose 129 H Uric Acid 14.3 H Phosphorus 8.0 H* Magnesium 2.8 H Lactate Dehydrogenase 339 H C-Reactive Protein Total Protein Globulin 4.4 H Albumin/Globulin Ratio 0.8 L Triglycerides 305 H Urine Protein Urine Glucose (UA) Urine WBC Hyaline Casts 11/23/18 11/23/18 11/23/18 12:55 10:54 10:54 WBC RBC Hgb Hct Gran # [place] # (Auto) Band Neutrophils % Monocytes % (Manual) ESR Sodium 130 L Potassium 3.1 L Chloride 86 L Carbon Dioxide 16 L Anion Gap 28.0 H BUN 73 H Creatinine 6.0 H* Glucose 160 H Uric Acid Phosphorus Magnesium 2.9 H Lactate Dehydrogenase C-Reactive Protein Total Protein 8.5 H Globulin 4.6 H Albumin/Globulin Ratio 0.8 L Triglycerides Urine Protein 100 A Urine Glucose (UA) 50 A Urine WBC 7 H Hyaline Casts 97 H 11/23/18 11/23/18 09:29 09:27 WBC 11.6 H RBC 7.00 H Hgb 19.6 H Hct 58.7 H Gran # 8.3 H [place] # (Auto) 1.4 H Band Neutrophils % Monocytes % (Manual) ESR Sodium Potassium Chloride Carbon Dioxide Anion Gap BUN Creatinine Glucose Uric Acid Phosphorus Magnesium Lactate Dehydrogenase C-Reactive Protein 10.8 H Total Protein Globulin Albumin/Globulin Ratio Triglycerides Urine Protein Urine Glucose (UA) Urine WBC Hyaline Casts Meds: Medications Acetaminophen (Tylenol) 650 mg PO Q4-6HP PRN PRN Reason: PAIN/FEVER > 101 Heparin Sodium (Porcine) (Heparin) 5,000 unit SQ Q12 [facility] Last Admin: 11/25/18 09:38 Dose: 5,000 unit Documented by: Lactated Ringer's (Lactated Ringers) 1,000 mls @ 100 mls/hr IV .Q10H [facility] Stop: 11/26/18 22:44 Last Admin: 11/25/18 07:03 Dose: 100 mls/hr Documented by: Magnesium Sulfate (Magnesium Sulfate) 2 gm in 50 mls @ 50 mls/hr IV UD PRN PRN Reason: MG = or < 1.7 Iron Carb/Multivit/[place]/Folic Acid (Multivitamin W/Minerals) 1 tab PO DAILY [facility] Last Admin: 11/25/18 09:38 Dose: 1 tab Documented by: Loperamide HCl (Imodium) 2 mg PO PRN PRN PRN Reason: Diarrhea Ondansetron HCl (Zofran) 4 mg IV Q4-6HP PRN PRN Reason: Nausea And Vomiting Potassium Chloride (Klor-Con) 40 meq PO DAILYP PRN PRN Reason: K+ < 3.5 Last Admin: 11/24/18 10:30 Dose: 40 meq Documented by: Sodium Chloride (Saline Flush) 10 ml IV Q8 [facility] Last Admin: 11/25/18 07:05 Dose: Not Given Documented by: Trazodone HCl (Desyrel) 50 mg PO HSP PRN PRN Reason: Insomnia Medical - PN: A/P - Time Spent With Patient Total time spent is greater than 50% in coordination of care (as documented) at patient's floor/unit and/or counseling patient: 25 - 35 minutes (1) Acute on chronic renal failure Status: Acute Assessment and plan: * Acute renal failure-prerenal secondary to diarrhea and volume loss. Creatinine at down from 6->3 . Renal ultrasound unremarkable * Hypokalemia continue oral and IV replacement as indicated. Current potassium 3.3 * Anion gap metabolic acidosis -down from 28-18 * Severe dehydration with volume loss improved with IV and oral crystalloids * Severe diarrhea-stool studies negative so far/supportive management/Imodium * History of hypertension held MITCH inhibitors in light of acute renal failure. Systolics at goal * Full code * Prophylaxis heparin Plan * Continue volume and electrolyte replacement * renal function monitoring * Imodium * advance diet as tolerated Current Visit: Yes Medical - PN: Qual - VTE Deep Vein Thrombosis/Pulmonary Embolism Present on Admission: No
[2018-11-25] MEDS: LOPERAMIDE 2 MG CAPSULE PO PRN ×2 (12:46→20:04)
[2018-11-25] MEDS: CIPROFLOXACIN 500 MG TABLET PO SCH (20:08)
[2018-11-26] MEDS: LACTATED RINGERS 1,000 ML IV SCH ×2 (02:53→15:01)
[2018-11-26] MEDS: 0.9 % SODIUM CHLORIDE 10 ML SYRINGE IV SCH ×3 (05:09→22:38)
[2018-11-26 05:48] LABS: Hematocrit 44.2 % (41.0-55.0); Hemoglobin 14.7 g/dL (13.5-16.5); Mean Cell Volume 84.9 fL (80.0-100.0); Mean Corpuscular HGB Conc 33.2 g/dL (31.0-36.0); Mean Platelet Volume 8.6 fL (7.4-10.4); Platelet Count 170 K/mcL (140-440); RBC 5.21 M/mcL (4.50-5.90); Red Cell Distribution Width 13.4 % (11.5-14.5); WBC 8.6 K/mcL (4.5-11.0)
[2018-11-26 06:26] LABS: ALT/SGPT 17 U/l (0-40); AST/SGOT 17 U/l (0-37); Albumin 3.1 gm/dL (3.2-5.2); Albumin/Globulin Ratio 0.8 (1.0-2.3); Alkaline Phosphatase 69 U/L (39-117); Bilirubin,Direct < 0.2 mg/dL (0.0-0.3); Bilirubin,Total 0.8 mg/dL (0.0-1.0); Blood Urea Nitrogen 55 mg/dl (8-23); Calcium 8.8 mg/dl (8.6-10.4); Carbon Dioxide 21 mmol/L (22-30); Chloride 95 mmol/L (96-108); Globulin 3.7 gm/dL (2.2-3.7); Glomerular Filtration Rate 35; Glucose 151 mg/dL (70-105); Lactate Dehydrogenase 217 U/L (94-250); Phosphorous 2.7 mg/dL (2.7-4.5); Triglycerides 249 mg/dl (<150); Uric Acid 10.9 mg/dL (2.5-8.0)
[2018-11-26] MEDS: POTASSIUM CHLORIDE 20 MEQ PACKET PO PRN (06:42)
[2018-11-26 06:43] LABS: Lymphocytes % 17 % (15-49); Monocytes % (Manual) 15 % (1-12); Platelet Estimate NORMAL (NORMAL); RBC Morphology NORMAL (NORMAL); Reactive Lymphocytes 1 % (0-2); Segmented Neutrophils % 67 % (38-78)
[2018-11-26] MEDS: MULTIVIT,THER IRON,CA,FA & MIN 1 TABLET PO SCH (08:36)
[2018-11-26] MEDS: HEPARIN 5,000 UNIT/ML VIAL SQ SCH ×2 (08:36→20:37)
[2018-11-26] MEDS: CIPROFLOXACIN 500 MG TABLET PO SCH ×2 (08:36→20:38)
[2018-11-26] MEDS ORDERED: LOPERAMIDE 2 MG CAPSULE PO PRN (09:15)
--- NOTE | 2018-11-26 10:17 | Nephrology Progress Note ---
Subjective Patient information: Note initiated : 11/26/18 at 10:15 am Service Date, if different from initiated Date: [] Patient: Jonas Noble 68 y/o M admitted on 11/23/18 for Diarrhea Since Monday 20 lb Weight Loss. Chief Complaint: [] Principal diagnosis: Acute ptrerenal azotemia Interval history: Improving GFR, K still low from from GI losses Pertinent ROS: N/A Additional PMFSH (Level 3 Only): ACEi use for BP at home. Objective - Vital Signs Vital signs: Vital Signs Temp Pulse Resp BP Pulse Ox 11/26/18 08:29 98.3 F 16 150/70 96 11/26/18 08:00 16 11/26/18 04:00 97.6 F 80 18 150/82 95 11/26/18 00:00 97.7 F 88 20 154/78 94 11/25/18 20:00 97.5 F 94 H 18 161/81 98 11/25/18 18:04 98.0 F 20 146/76 94 11/25/18 14:06 97.9 F 16 123/78 95 Intake and Output 11/25/18 11/26/18 11/26/18 21:59 05:59 13:59 Intake Total 1413 1390 360 Output Total 2500 1800 800 Balance -1087 -410 -440 Intake: IV 993 990 Lactated Ringers 1,000 ml @ 100 993 990 mls/hr IV .Q10H [facility] Rx#: [id number] Oral 420 400 360 Output: Void Amount 650 650 # of times incontinent of urine 0 Urine/Stool Mix 900 Stool 950 1150 800 Other: Meal Dinner Breakfast Percent of Meal Consumed 100% 50% Feeding Ability Independent Urine Appearance Clear Urine Color Bright Yellow Stool Size Moderate Large Stool Color Brown Brown Stool Consistency Liquid Liquid Watery # Voids 0 # Bowel Movements 1 # of times incontinent of 0 Bowels Weight 258 lb Intake & Output: Intake & Output 11/25/18 11/26/18 11/26/18 21:59 05:59 13:59 Intake Total 1413 1390 360 Output Total 2500 1800 800 Balance -1087 -410 -440 Weight 258 lb Intake: IV 993 990 Lactated Ringers 1,000 ml @ 100 993 990 mls/hr IV .Q10H [facility] Rx#: [id number] Oral 420 400 360 Output: Void Amount 650 650 # of times incontinent of urine 0 Urine/Stool Mix 900 Stool 950 1150 800 Other: Meal Dinner Breakfast Percent of Meal Consumed 100% 50% Feeding Ability Independent Urine Appearance Clear Urine Color Bright Yellow Stool Size Moderate Large Stool Color Brown Brown Stool Consistency Liquid Liquid Watery # Voids 0 # Bowel Movements 1 # of times incontinent of 0 Bowels - General Appearance General appearance: well-developed, well-nourished EENT: ATNC, PERRL Neck: no JVD Cardiology: no murmurs Gastrointestinal: normoactive bowel sounds Integumentary: no rash Neurologic: no focal deficit Musculoskeletal: no deformities Psychiatric: mood/affect appropriate - Lab 11/27/18 04:25 11/27/18 04:25 Most recent lab results Calcium 8.8 mg/dl (8.6-10.4) 11/26/18 03:04 Phosphorus 2.7 mg/dL (2.7-4.5) 11/26/18 03:04 Magnesium 2.1 mg/dL (1.6-2.5) 11/26/18 03:04 Assessment and Plan - Narrative A/P Narrative: Agree with Discharge today. No NSAIDs or ACEi/ARB until seen in f/u renal clinic
--- NOTE | 2018-11-26 10:27 | Internal Med Progress Note ---
Medical - PN: Subj Patient information: Note initiated : 11/26/18 at 10:25 am Service Date, if different from initiated Date: [] Patient: Jonas Noble a 68 y/o M admitted on 11/23/18 for Diarrhea Since Monday 20 lb Weight Loss. Chief Complaint: [] Interval history: Mr. Noble is a 68 year old M with no significant medical history except for hypertension who presents with profuse persistent watery diarrhea over the last few days that started Monday and has resulted over 20 pound weight loss. He is experiencing diarrhea every 30 minutes and has gotten progressively weak fatigue lethargic. He is hard developing generalized cramps unable to function. Patient denies sick contacts or recent change in medication. He further denies [id number] medication or travel outside [facility] or attending [employer] feast. He denies eating uncooked or raw meats or drinking out of spring. Patient denies associated fever or blood in stool or hematemesis. He experienced minimal nausea but no arthralgia or rash. He further denies prior similar episodes of hospitalization or history of inflammatory bowel disease. Initial work-up in the ER was consistent with acute renal failure with a creatinine of 6, potassium 3.1, anion gap acidosis 28 with a bicarb 16. Stool samples were sent. Patient was started on crystalloids and nephrology was consulted. Hospitalist service was requested for admission 11/24-patient clinically improving with diarrhea frequency now once in 2 hours. More formed. On crystalloids. Creatinine down to 5. Potassium up from 3.1- 3.6. Improving anion gap acidosis. Overall volume status improving. Able to tolerate p.o. Continue telemetry monitoring. Nephrology on board. No overnight fever chills or abdominal pain. Stool studies negative so far. Renal ultrasound negative. 11/25-improving diarrhea frequency. Starting Imodium. Cultures negative so far. Creatinine down to 3 from 6. Advance to regular diet. Nephrology on board. No overnight fever chills abdominal pain or bloody stool. Potassium 3.3 on replacement. 11/26-patient doing well, no overnight events. No concerns per staff. Creatinine down to 1.9. Salmonella on stool cultures now on ciprofloxacin. Persistent drooling every 2 hours. However more formed and patient feels stronger. Potassium 3.2 on replacement. - Constitutional Vitals: Vital Signs Temp Pulse Resp BP Pulse Ox 98.3 F 80 16 150/70 96 11/26/18 08:29 11/26/18 04:00 11/26/18 08:29 11/26/18 08:29 11/26/18 08:29 Period Temp Pulse Resp BP Sys/Maza Pulse Ox Last 24 Hr 97.5 F-98.3 F 80-94 16-20 123-161/70-82 94-98 Intake and Output 11/25/18 11/26/18 11/26/18 21:59 05:59 13:59 Intake Total 1413 1390 360 Output Total 2500 1800 800 Balance -1087 -410 -440 Weight 258 lb Intake & Output: Intake & Output 11/25/18 11/26/18 11/26/18 21:59 05:59 13:59 Intake Total 1413 1390 360 Output Total 2500 1800 800 Balance -1087 -410 -440 Weight 258 lb Intake: IV 993 990 Lactated Ringers 1,000 ml @ 100 993 990 mls/hr IV .Q10H [facility] Rx#: [id number] Oral 420 400 360 Output: Void Amount 650 650 # of times incontinent of urine 0 Urine/Stool Mix 900 Stool 950 1150 800 Other: Meal Dinner Breakfast Percent of Meal Consumed 100% 50% Feeding Ability Independent Urine Appearance Clear Urine Color Bright Yellow Stool Size Moderate Large Stool Color Brown Brown Stool Consistency Liquid Liquid Watery # Voids 0 # Bowel Movements 1 # of times incontinent of 0 Bowels General appearance: no acute distress Exam: Alert oriented No labored breathing Minimal anxiety No abdominal pain or distention Medical - PN: Obj Da - Labs CBC & Chem 7: 11/26/18 03:04 11/26/18 03:04 Labs: Abnormal Lab Results 11/26/18 11/26/18 11/25/18 03:04 03:04 03:32 RBC Hgb Band Neutrophils % Monocytes % (Manual) 15 H ESR Sodium 132 L 130 L Potassium 3.2 L Chloride 95 L 91 L Carbon Dioxide 21 L 21 L Anion Gap 18.0 H BUN 55 H 71 H Creatinine 1.9 H 3.0 H Glucose 151 H 113 H Uric Acid 10.9 H 12.7 H Phosphorus Magnesium Lactate Dehydrogenase C-Reactive Protein Total Protein Albumin 3.1 L Globulin Albumin/Globulin Ratio 0.8 L 0.9 L Triglycerides 249 H 265 H Urine Protein Urine Glucose (UA) Urine WBC Hyaline Casts 11/25/18 11/24/18 11/24/18 03:32 03:33 03:33 RBC 5.91 H Hgb 16.8 H Band Neutrophils % 14 H Monocytes % (Manual) 15 H 17 H ESR Sodium 130 L Potassium Chloride 87 L Carbon Dioxide 19 L Anion Gap 24.0 H BUN 86 H Creatinine 5.1 H* Glucose 118 H Uric Acid 13.8 H Phosphorus 7.0 H* Magnesium 2.6 H Lactate Dehydrogenase 259 H C-Reactive Protein Total Protein Albumin Globulin 4.3 H Albumin/Globulin Ratio 0.8 L Triglycerides 293 H Urine Protein Urine Glucose (UA) Urine WBC Hyaline Casts 11/23/18 11/23/18 11/23/18 23:00 15:25 12:55 RBC Hgb Band Neutrophils % Monocytes % (Manual) ESR 37 H Sodium 128 L Potassium Chloride 86 L Carbon Dioxide 18 L Anion Gap 24.0 H BUN 86 H Creatinine 5.7 H* Glucose 129 H Uric Acid 14.3 H Phosphorus 8.0 H* Magnesium 2.8 H Lactate Dehydrogenase 339 H C-Reactive Protein Total Protein Albumin Globulin 4.4 H Albumin/Globulin Ratio 0.8 L Triglycerides 305 H Urine Protein 100 A Urine Glucose (UA) 50 A Urine WBC 7 H Hyaline Casts 97 H 11/23/18 11/23/18 11/23/18 10:54 10:54 09:29 RBC Hgb Band Neutrophils % Monocytes % (Manual) ESR Sodium 130 L Potassium 3.1 L Chloride 86 L Carbon Dioxide 16 L Anion Gap 28.0 H BUN 73 H Creatinine 6.0 H* Glucose 160 H Uric Acid Phosphorus Magnesium 2.9 H Lactate Dehydrogenase C-Reactive Protein 10.8 H Total Protein 8.5 H Albumin Globulin 4.6 H Albumin/Globulin Ratio 0.8 L Triglycerides Urine Protein Urine Glucose (UA) Urine WBC Hyaline Casts Meds: Medications Acetaminophen (Tylenol) 650 mg PO Q4-6HP PRN PRN Reason: PAIN/FEVER > 101 Ciprofloxacin (Cipro) 500 mg PO BID [facility]; Protocol Last Admin: 11/26/18 08:36 Dose: 500 mg Documented by: Heparin Sodium (Porcine) (Heparin) 5,000 unit SQ Q12 RODRIGUE Last Admin: 11/26/18 08:36 Dose: 5,000 unit Documented by: Lactated Ringer's (Lactated Ringers) 1,000 mls @ 100 mls/hr IV .Q10H [facility] Stop: 11/26/18 22:44 Last Admin: 11/26/18 02:53 Dose: 100 mls/hr Documented by: Magnesium Sulfate (Magnesium Sulfate) 2 gm in 50 mls @ 50 mls/hr IV UD PRN PRN Reason: MG = or < 1.7 Iron Carb/Multivit/[place]/Folic Acid (Multivitamin W/Minerals) 1 tab PO DAILY RODRIGUE Last Admin: 11/26/18 08:36 Dose: 1 tab Documented by: Loperamide HCl (Imodium) 2 mg PO TIDP PRN PRN Reason: Diarrhea Ondansetron HCl (Zofran) 4 mg IV Q4-6HP PRN PRN Reason: Nausea And Vomiting Potassium Chloride (Klor-Con) 40 meq PO DAILYP PRN PRN Reason: K+ < 3.5 Last Admin: 11/26/18 06:42 Dose: 40 meq Documented by: Sodium Chloride (Saline Flush) 10 ml IV Q8 RODRIGUE Last Admin: 11/26/18 05:09 Dose: Not Given Documented by: Trazodone HCl (Desyrel) 50 mg PO HSP PRN PRN Reason: Insomnia Medical - PN: A/P - Time Spent With Patient Total time spent is greater than 50% in coordination of care (as documented) at patient's floor/unit and/or counseling patient: 15 - 24 minutes (1) Acute on chronic renal failure Status: Acute Assessment and plan: * Acute renal failure-prerenal secondary to diarrhea and volume loss. Creatinine at down from 6->3 . Renal ultrasound unremarkable * Persistent hypokalemia continue oral and IV replacement as indicated. Potassium today at 3.2 * Acute Salmonella gastroenteritis with severe diarrhea-continue oral ciprofloxacin//supportive management/Imodium * Anion gap metabolic acidosis -resolved * Severe dehydration -resolved with crystalloids * History of hypertension-may resume MITCH inhibitor once creatinine less than 1.6 * Full code * Prophylaxis heparin Plan * Electrolyte replacement * Oral ciprofloxacin * Imodium as needed * advance diet as tolerated * Possible discharge in 24 hours Current Visit: Yes Medical - PN: Qual - VTE Deep Vein Thrombosis/Pulmonary Embolism Present on Admission: No
--- NOTE | 2018-11-26 17:34 | Internal Med Progress Note ---
Medical - PN: Subj Patient information: Note initiated : 11/26/18 at 5:32 pm Service Date, if different from initiated Date: [] Patient: Jonas Noble 68 y/o M admitted on 11/23/18 for Diarrhea Since Monday 20 lb Weight Loss. Chief Complaint: [] Interval history: Diarrhea has stopped, home tomorrow Pertinent ROS: Salmonella gastroenteritis Additional PMFSH (Level 3 Only): No history of pre-existing renall disease - Constitutional Vitals: Vital Signs Temp Pulse Resp BP Pulse Ox 98.1 F 80 16 139/75 94 11/26/18 12:07 11/26/18 04:00 11/26/18 12:07 11/26/18 12:07 11/26/18 12:07 Period Temp Pulse Resp BP Sys/Maza Pulse Ox Last 24 Hr 97.5 F-98.3 F 80-94 16-20 139-161/70-82 94-98 Intake and Output 11/26/18 11/26/18 11/26/18 05:59 13:59 21:59 Intake Total 1390 1360 300 Output Total 0613 610 8851 Balance -410 560 167 Intake & Output: Intake & Output 11/26/18 11/26/18 11/26/18 05:59 13:59 21:59 Intake Total 1390 1360 300 Output Total 2110 620 5915 Balance -410 560 -1679 Intake: IV 990 1000 Lactated Ringers 1,000 ml @ 546 844 7038 mls/hr IV .Q10H [facility] Rx#: [id number] Oral 400 360 300 Output: Void Amount 650 425 Stool 8319 310 9692 Other: Meal Breakfast Dinner Percent of Meal Consumed 50% 100% Feeding Ability Independent Independent Urine Appearance Clear Urine Color Bright Yellow Urine Odor Normal Stool Size Large Large Stool Color Brown Brown Stool Consistency Liquid Liquid Watery Watery General appearance: average body habitus, no acute distress - Head Head exam: Present: normocephalic - Eye Eye exam: Present: EOMI - Neck Neck exam: Present: normal inspection - GI/Abdominal GI/Abdominal exam: Present: soft - Extremities Exam Extremities exam: Present: full ROM - Neurological Exam Neurological exam: Present: CN II-XII intact, normal gait, oriented X3 - Psychiatric Psychiatric exam: Present: normal affect, normal mood - Skin Skin exam: Present: abrasion, dry, warm Medical - PN: Obj Da - Labs CBC & Chem 7: 11/26/18 03:04 11/26/18 03:04 Labs: Abnormal Lab Results 11/26/18 11/26/18 11/25/18 03:04 03:04 03:32 RBC Hgb Band Neutrophils % Monocytes % (Manual) 15 H Sodium 132 L 130 L Potassium 3.2 L Chloride 95 L 91 L Carbon Dioxide 21 L 21 L Anion Gap 18.0 H BUN 55 H 71 H Creatinine 1.9 H 3.0 H Glucose 151 H 113 H Uric Acid 10.9 H 12.7 H Phosphorus Magnesium Lactate Dehydrogenase Albumin 3.1 L Globulin Albumin/Globulin Ratio 0.8 L 0.9 L Triglycerides 249 H 265 H 11/25/18 11/24/18 11/24/18 03:32 03:33 03:33 RBC 5.91 H Hgb 16.8 H Band Neutrophils % 14 H Monocytes % (Manual) 15 H 17 H Sodium 130 L Potassium Chloride 87 L Carbon Dioxide 19 L Anion Gap 24.0 H BUN 86 H Creatinine 5.1 H* Glucose 118 H Uric Acid 13.8 H Phosphorus 7.0 H* Magnesium 2.6 H Lactate Dehydrogenase 259 H Albumin Globulin 4.3 H Albumin/Globulin Ratio 0.8 L Triglycerides 293 H 11/23/18 11/23/18 23:00 10:54 RBC Hgb Band Neutrophils % Monocytes % (Manual) Sodium 128 L Potassium Chloride 86 L Carbon Dioxide 18 L Anion Gap 24.0 H BUN 86 H Creatinine 5.7 H* Glucose 129 H Uric Acid 14.3 H Phosphorus 8.0 H* Magnesium 2.8 H 2.9 H Lactate Dehydrogenase 339 H Albumin Globulin 4.4 H Albumin/Globulin Ratio 0.8 L Triglycerides 305 H Meds: Medications Acetaminophen (Tylenol) 650 mg PO Q4-6HP PRN PRN Reason: PAIN/FEVER > 101 Ciprofloxacin (Cipro) 500 mg PO BID [facility]; Protocol Last Admin: 11/26/18 08:36 Dose: 500 mg Documented by: Heparin Sodium (Porcine) (Heparin) 5,000 unit SQ Q12 RODRIGUE Last Admin: 11/26/18 08:36 Dose: 5,000 unit Documented by: Lactated Ringer's (Lactated Ringers) 1,000 mls @ 100 mls/hr IV .Q10H [facility] Stop: 11/26/18 22:44 Last Admin: 11/26/18 15:01 Dose: 100 mls/hr Documented by: Magnesium Sulfate (Magnesium Sulfate) 2 gm in 50 mls @ 50 mls/hr IV UD PRN PRN Reason: MG = or < 1.7 Iron Carb/Multivit/[place]/Folic Acid (Multivitamin W/Minerals) 1 tab PO DAILY [facility] Last Admin: 11/26/18 08:36 Dose: 1 tab Documented by: Loperamide HCl (Imodium) 2 mg PO TIDP PRN PRN Reason: Diarrhea Last Admin: 11/26/18 15:01 Dose: 2 mg Documented by: Ondansetron HCl (Zofran) 4 mg IV Q4-6HP PRN PRN Reason: Nausea And Vomiting Potassium Chloride (Klor-Con) 40 meq PO DAILYP PRN PRN Reason: K+ < 3.5 Last Admin: 11/26/18 06:42 Dose: 40 meq Documented by: Sodium Chloride (Saline Flush) 10 ml IV Q8 [facility] Last Admin: 11/26/18 14:28 Dose: Not Given Documented by: Trazodone HCl (Desyrel) 50 mg PO HSP PRN PRN Reason: Insomnia Medical - PN: A/P - Time Spent With Patient Total time spent is greater than 50% in coordination of care (as documented) at patient's floor/unit and/or counseling patient: 15 - 24 minutes (1) Hypokalemia Problem details: GI losses from Salmonella enteritis Status: Acute Assessment and plan: Replace K and volume O/N Current Visit: Yes (2) Acute renal failure Problem details: Volume loss and hypotension with ACEi therapy Status: Acute Assessment and plan: Home tomorrow with 1 week follow up No lisinopril or NSAIDs tyill seen in clinic Current Visit: Yes Medical - PN: Qual - VTE Deep Vein Thrombosis/Pulmonary Embolism Present on Admission: No
[2018-11-26] MEDS ORDERED: traZODone HCL 50 MG TABLET PO PRN (18:33)
[2018-11-26] MEDS ORDERED: ACETAMINOPHEN 325 MG TABLET PO PRN (18:33)
[2018-11-26] MEDS ORDERED: POTASSIUM CHLORIDE 20 MEQ PACKET PO PRN (18:33)
[2018-11-26] MEDS ORDERED: LACTATED RINGERS 1,000 ML IV SCH (18:33)
[2018-11-26] MEDS ORDERED: ONDANSETRON 4 MG/2 ML VIAL IV PRN (18:33)
[2018-11-26] MEDS ORDERED: MAGNESIUM SULFATE 2 GM/50 ML BAG IV PRN (18:33)
[2018-11-26] MEDS ORDERED: POTASSIUM CHLORIDE 20 MEQ TABLET PO SCH (20:00)
[2018-11-26] MEDS: LOPERAMIDE 2 MG CAPSULE PO PRN ×2 (20:37→23:03)
[2018-11-26] MEDS: POTASSIUM CHLORIDE 20 MEQ TABLET PO SCH ×2 (20:38→23:03)
[2018-11-27] MEDS: 0.9 % SODIUM CHLORIDE 10 ML SYRINGE IV SCH (04:22)
[2018-11-27 06:42] LABS: ALT/SGPT 20 U/l (0-40); AST/SGOT 20 U/l (0-37); Albumin 3.1 gm/dL (3.2-5.2); Albumin/Globulin Ratio 0.9 (1.0-2.3); Alkaline Phosphatase 69 U/L (39-117); Bilirubin,Direct < 0.2 mg/dL (0.0-0.3); Bilirubin,Total 0.8 mg/dL (0.0-1.0); Blood Urea Nitrogen 44 mg/dl (8-23); Calcium 8.8 mg/dl (8.6-10.4); Carbon Dioxide 20 mmol/L (22-30); Chloride 100 mmol/L (96-108); Globulin 3.5 gm/dL (2.2-3.7); Glomerular Filtration Rate 40; Glucose 148 mg/dL (70-105); Lactate Dehydrogenase 234 U/L (94-250); Phosphorous 2.4 mg/dL (2.7-4.5); Triglycerides 225 mg/dl (<150); Uric Acid 9.5 mg/dL (2.5-8.0)
[2018-11-27 06:49] LABS: Hematocrit 43.5 % (41.0-55.0); Hemoglobin 14.6 g/dL (13.5-16.5); Mean Cell Volume 84.3 fL (80.0-100.0); Mean Corpuscular HGB Conc 33.7 g/dL (31.0-36.0); Mean Platelet Volume 8.5 fL (7.4-10.4); Platelet Count 203 K/mcL (140-440); RBC 5.16 M/mcL (4.50-5.90); Red Cell Distribution Width 13.1 % (11.5-14.5); WBC 9.9 K/mcL (4.5-11.0)
--- NOTE | 2018-11-27 07:38 | Nephrology Progress Note ---
Subjective Patient information: Note initiated : 11/27/18 at 7:35 am Service Date, if different from initiated Date: [] Patient: Jonas Noble 68 y/o M admitted on 11/23/18 for Diarrhea Since Monday 20 lb Weight Loss. Chief Complaint: [] Principal diagnosis: Acute ptrerenal azotemia Interval history: Planning d/c today Pertinent ROS: no diarrhea Additional PMFSH (Level 3 Only): none Objective - Vital Signs Vital signs: Vital Signs Temp Pulse Resp BP BP Pulse Ox 11/27/18 04:06 97.4 F 86 14 132/75 96 11/26/18 23:01 97.3 F 87 14 151/80 99 11/26/18 19:27 97.9 F 89 12 127/76 98 11/26/18 12:07 98.1 F 16 139/75 94 11/26/18 08:29 98.3 F 16 150/70 96 11/26/18 08:00 16 Intake and Output 11/26/18 11/27/18 11/27/18 21:59 05:59 13:59 Intake Total 300 900 Output Total 3175 700 Balance -2875 200 Intake: Oral 300 900 Output: Void Amount 775 300 Stool 2400 400 Other: Meal Dinner Yogurt, applesauce Percent of Meal Consumed 100% 100% Feeding Ability Independent Independent Urine Appearance Clear Clear Urine Color Bright Yellow Bright Yellow Urine Odor Normal Stool Size Large Moderate Stool Color Brown Brown Yellow Stool Consistency Liquid Liquid Loose Watery Loose # Voids 1 # Bowel Movements 1 Weight 245 lb Intake & Output: Intake & Output 11/26/18 11/27/18 11/27/18 21:59 05:59 13:59 Intake Total 300 900 Output Total 3175 700 Balance -2875 200 Weight 245 lb Intake: Oral 300 900 Output: Void Amount 775 300 Stool 2400 400 Other: Meal Dinner Yogurt, applesauce Percent of Meal Consumed 100% 100% Feeding Ability Independent Independent Urine Appearance Clear Clear Urine Color Bright Yellow Bright Yellow Urine Odor Normal Stool Size Large Moderate Stool Color Brown Brown Yellow Stool Consistency Liquid Liquid Loose Watery Loose # Voids 1 # Bowel Movements 1 - General Appearance General appearance: well-developed, well-nourished, appears started age EENT: ATNC, PERRL, mucous membranes moist Neck: no JVD, no thyromegaly, no carotid bruit, supple Respiratory: no kyphosis, no scoliosis Cardiology: no murmurs, no rub, no gallops, no edema, regular rate, regular rhythm, normal S1, normal S2 Gastrointestinal: normoactive bowel sounds, no tenderness, no guarding, no organomegaly, no masses Integumentary: no rash Neurologic: no focal deficit, no asterixis, alert and oriented x3, gait normal, strength 5/5 Musculoskeletal: no deformities, no erythema Psychiatric: mood/affect appropriate - Lab 11/27/18 04:25 11/27/18 04:25 Most recent lab results Calcium 8.8 mg/dl (8.6-10.4) 11/27/18 04:25 Phosphorus 2.4 mg/dL (2.7-4.5) L 11/27/18 04:25 Magnesium 1.8 mg/dL (1.6-2.5) 11/27/18 04:25 Assessment and Plan (1) Hypokalemia Resolved with replacment of GI losses Status: Acute Priority: Medium Comment: GI losses from Salmonella enteritis (2) Acute renal failure Home today with 1 week follow up No lisinopril or NSAIDs until seen in clinic Status: Acute Comment: Volume loss and hypotension with ACEi therapy - Narrative A/P Narrative: Agree with Discharge today. No NSAIDs or ACEi/ARB until seen in f/u renal clinic
--- NOTE | 2018-11-27 08:16 | Discharge Summary ---
Medical - DS: Prov Patient information: Note initiated : 11/27/18 at 8:11 am Service Date, if different from initiated Date: [] Patient: Jonas Noble 68 y/o M admitted on 11/23/18 for Diarrhea Since Monday 20 lb Weight Loss. Chief Complaint: [] Date of admission: 11/23/18 16:04 Discharge date: 11/27/18 Primary care physician: Suki Carney Consults: 11/23/18 13:15 Consult to Physician [CONS] Stat Comment: Consulting Provider: Praveen Briggs Reason For Exam: Physician to Consult Medical - DS: Meds - Discharge Medications Prescriptions: Ciprofloxacin [Cipro] 500 mg PO BID #10 tab Loperamide [Imodium] 2 mg PO TIDP PRN #10 cap PRN Reason: Diarrhea Active and Home Medications: Home Medications Lisinopril [Zestril] 30 mg PO DAILY 11/21/17 [History Confirmed 11/23/18 Last Taken 11/19/18 08:00] Multivitamin Liquid 30 ml PO DAILY 11/23/18 [History Confirmed 11/24/18 Last Taken 11/19/18] Ciprofloxacin [Cipro] 500 mg PO BID #10 tab 11/27/18 [Rx Last Taken Unknown] Loperamide [Imodium] 2 mg PO TIDP PRN #10 cap 11/27/18 [Rx Last Taken Unknown] Medical - DS: Hosp Hospital course: Discharge diagnosis * Acute Salmonella gastroenteritis with severe diarrhea-clinically improved with aggressive crystalloid/oral ciprofloxacin/supportive management/Imodium. Discharging home with additional 5 days oral ciprofloxacin * Acute renal failure-prerenal secondary to diarrhea and volume loss. Creatinine at down from 6->3->1.7. Follow-up with nephrology in 1 week. Hold lisinopril * Hypokalemia secondary to electrolyte loss and diarrhea. Resolved with replacement. * Anion gap metabolic acidosis -resolved * Severe dehydration -resolved with crystalloids * History of hypertension-hold lisinopril until follow-up with nephrology Brief hospital course Mr. Noble is a 68 year old M with no significant medical history except for hypertension who presents with profuse persistent watery diarrhea over the last few days that started Monday and has resulted over 20 pound weight loss. He is experiencing diarrhea every 30 minutes and has gotten progressively weak fatigue lethargic. He is hard developing generalized cramps unable to function. Patient denies sick contacts or recent change in medication. He further denies [id number] medication or travel outside [facility] or attending community feast. He denies eating uncooked or raw meats or drinking out of spring. Patient denies associated fever or blood in stool or hematemesis. He experienced minimal nausea but no arthralgia or rash. He further denies prior similar episodes of hospitalization or history of inflammatory bowel disease. Initial work-up in the ER was consistent with acute renal failure with a creatinine of 6, potassium 3.1, anion gap acidosis 28 with a bicarb 16. Stool samples were sent. Patient was started on crystalloids and nephrology was consulted. Hospitalist service was requested for admission 11/24-patient clinically improving with diarrhea frequency now once in 2 hours. More formed. On crystalloids. Creatinine down to 5. Potassium up from 3.1- 3.6. Improving anion gap acidosis. Overall volume status improving. Able to tolerate p.o. Continue telemetry monitoring. Nephrology on board. No overnight fever chills or abdominal pain. Stool studies negative so far. Renal ultrasound negative. 11/25-improving diarrhea frequency. Starting Imodium. Cultures negative so far. Creatinine down to 3 from 6. Advance to regular diet. Nephrology on board. No overnight fever chills abdominal pain or bloody stool. Potassium 3.3 on replacement. 11/26-patient doing well, no overnight events. No concerns per staff. Creatinine down to 1.9. Salmonella on stool cultures now on ciprofloxacin. Persistent drooling every 2 hours. However more formed and patient feels stronger. Potassium 3.2 on replacement. 11/27-patient discharging home with advised to follow-up with nephrology and hold lisinopril and NSAIDs until follow-up with nephrology. Continue oral ciprofloxacin for an additional 5 days. No overnight fever chills. Diarrhea improved frequency and more formed stools. Feels ready for discharge Discharge diagnosis: . - Time Spent with Patient Total time spent providing and/or coordinating discharge services: Greater than 30 minutes Medical - DS: Exam - Constitutional Vitals: Vital Signs Temp Pulse Resp BP BP Pulse Ox 11/27/18 04:06 97.4 F 86 14 132/75 96 11/26/18 23:01 97.3 F 87 14 151/80 99 11/26/18 19:27 97.9 F 89 12 127/76 98 11/26/18 12:07 98.1 F 16 139/75 94 11/26/18 08:29 98.3 F 16 150/70 96 Intake and Output 11/26/18 11/27/18 11/27/18 21:59 05:59 13:59 Intake Total 300 900 Output Total 3175 700 Balance -2875 200 Intake: Oral 300 900 Output: Void Amount 775 300 Stool 2400 400 Other: Meal Dinner Yogurt, applesauce Percent of Meal Consumed 100% 100% Feeding Ability Independent Independent Urine Appearance Clear Clear Urine Color Bright Yellow Bright Yellow Urine Odor Normal Stool Size Large Moderate Stool Color Brown Brown Yellow Stool Consistency Liquid Liquid Loose Watery Loose # Voids 1 # Bowel Movements 1 Weight 245 lb Medical - DS: Data Labs on day of discharge: Labs from last 24 hours 11/27/18 11/27/18 04:25 04:25 WBC 9.9 RBC 5.16 Hgb 14.6 Hct 43.5 MCV 84.3 MCH 28.4 MCHC 33.7 RDW 13.1 Plt Count 203 MPV 8.5 Total Counted Pending Band Neutrophils % Not Reportable Platelet Estimate Pending RBC Morphology Pending Sodium 136 Potassium 3.6 Chloride 100 Carbon Dioxide 20 L Anion Gap 16.0 BUN 44 H Creatinine 1.7 H GFR Calculation 40 Glucose 148 H Uric Acid 9.5 H Calcium 8.8 Phosphorus 2.4 L Magnesium 1.8 Total Bilirubin 0.8 Direct Bilirubin < 0.2 GGT 21 AST 20 ALT 20 Alkaline Phosphatase 69 Lactate Dehydrogenase 234 Total Protein 6.6 Albumin 3.1 L Globulin 3.5 Albumin/Globulin Ratio 0.9 L Triglycerides 225 H Preliminary micro results at discharge 11/23/18 11:30 Stool Culture - Preliminary Stool Salmonella species Medical - DS: A/P - Patient/Caregiver Discharge Instructions Activity: increase activity as tolerated Diet: Regular Diet Additional Instructions: Please follow up with Dr Ortega in 1 week Please do not take lisinopril or NSAIDs until follow-up with nephrology clinic. Continue adequate oral fluid/sport drinks Return to ER if worsening diarrhea/abdominal pain Continue antibiotic for additional 5 days Reviewed the risk and side effect profile of antibiotics may include C. difficile. Side effects are minimized by close follow-up with primary care physician Prescriptions: Ciprofloxacin [Cipro] 500 mg PO BID #10 tab Loperamide [Imodium] 2 mg PO TIDP PRN #10 cap PRN Reason: Diarrhea Other Amb Orders: Discharge Referrals Time Frame: 1 Week, Facility: [facility], Location: Medical/Surgical Outpatient - Problem Maintenance (1) Acute on chronic renal failure Status: Acute Qualifiers: Acute renal failure type: unspecified Chronic kidney disease stage: stage 3 (moderate) Qualified Code(s): N17.9 - Acute kidney failure, unspecified; N18.3 - Chronic kidney disease, stage 3 (moderate) - Follow up Plan Follow up with: Suki Carney MD [Primary Care Provider] - Jacob Ortega MD [Physician] - () Disposition: Home, Self-Care Prognosis: Good Rehab Potential: Fair I certify that the patient requires SNF services: No Overall status at discharge: patient is progressing back to baseline Medical - DS: Qual - VTE Deep Vein Thrombosis/Pulmonary Embolism Present on Admission: No
[2018-11-27] MEDS: CIPROFLOXACIN 500 MG TABLET PO SCH (08:30)
[2018-11-27] MEDS: HEPARIN 5,000 UNIT/ML VIAL SQ SCH (08:30)
[2018-11-27 08:45] LABS: Band Neutrophils % 1 % (0-10); Eosinophils % (Manual) 3 % (0-7); Lymphocytes % 28 % (15-49); Monocytes % (Manual) 12 % (1-12); Myelocytes % 1 % (0-0); Platelet Estimate NORMAL (NORMAL); RBC Morphology NORMAL (NORMAL); Segmented Neutrophils % 55 % (38-78)
[2018-11-27] MEDS ORDERED: MULTIVIT,THER IRON,CA,FA & MIN 1 TABLET PO SCH (09:00)
== END 2018-11-27 10:09 | disposition home or self-care (01) | DRG 372 ==
LOC: ED 08:48 → ICU 16:02 → MEDSUR 11-26 18:14
PROVIDERS: ADMIT Internal Medicine; ATTEND Internal Medicine

== ENCOUNTER 2022-02-15 15:28 | Inpatient (IN) ==
[2022-02-15] MEDS ORDERED: IOPAMIDOL 100 ML BOTTLE IV ONE (15:29)
[2022-02-15 16:10] LABS: POC Calcium, Ionized 1.15 (1.16-1.32); POC Creatinine 1.1 (0.6-1.2); POC Potassium 3.8 (3.3-5.1)
[2022-02-15 16:52] LABS: Basophils # (Auto) 0.09 K/mcL (0.00-0.30); Eosinophils # (Auto) 0.13 K/mcL (0.00-0.70); Eosinophils % (Auto) 1.4 % (0.0-7.0); Hematocrit 44.3 % (40.1-51.0); Hemoglobin 15.4 g/dL (13.7-17.5); Lymphocytes # (Auto) 2.07 K/mcL (1.50-4.80); Lymphocytes % (Auto) 22.8 % (15.5-49.0); Mean Cell Volume 84.5 fL (80.0-100.0); Mean Corpuscular HGB Conc 34.8 g/dL (31.0-36.0); Mean Platelet Volume 9.4 fL (8.8-12.5); Monocytes # (Auto) 0.81 K/mcL (0.10-0.90); Monocytes % (Auto) 8.9 % (1.0-12.0); Neutrophils % (Auto) 65.5 % (38.0-78.0); Platelet Count 213 K/mcL (140-440); RBC 5.24 M/mcL (4.63-6.08); Red Cell Distribution Width 13.2 % (11.5-14.5); WBC 9.1 K/mcL (4.5-11.0)
--- NOTE | 2022-02-15 17:20 | Emergency Department Note ---
GI Bleed HPI General Chief complaint: Rectal Bleed Stated complaint: bowel obstruction Time Seen by Provider: 02/15/22 15:55 Source: patient Mode of arrival: ambulatory History of Present Illness HPI Narrative: 71-year-old male patient presents with recommendation from his PCP to come to the ER for possible small bowel obstruction versus ischemic colitis. The patient has a history of ischemic colitis and had a bowel resection in 2007 for this. He states that he started having onset of mild symptoms about 2 weeks ago with constipation and some mild abdominal pain. On Monday he had acute onset postprandial pain followed by diarrhea that resolved. Then on Monday he had a banana smoothie, followed by acute onset postprandial epigastric sharp pain and 1 episode of bloody diarrhea that he describes as dark melanic stool. He has h ad some nausea, but no vomiting. He denies F/C/S. He's had no lightheadedness or dizziness. He is not on blood thinners. Related Data Home Medications Medication Instructions Recorded Confirmed triamcinolone acetonide 0.1 % 1 applic topical QDAY 06/11/21 11/16/21 topical cream Green Tea Fat Burner See Rx Instructions .Route .COMPLEX 10/04/21 11/16/21 Gut MD See Rx Instructions .Route .COMPLEX 10/04/21 11/16/21 Joint Restore Gummies See Rx Instructions .Route .COMPLEX 10/04/21 11/16/21 Liquid Morning Vitamin See Rx Instructions .Route .COMPLEX 10/04/21 11/16/21 Prostate Advance See Rx Instructions .Route .COMPLEX 10/04/21 11/16/21 acetaminophen 500 mg tablet 500 mg PO Q6H PRN 10/04/21 11/16/21 (Tylenol Extra Strength) b 12 See Rx Instructions .Route .COMPLEX 10/04/21 11/16/21 joint discomfort & inflammation See Rx Instructions .Route .COMPLEX 10/04/21 11/16/21 foam pramoxine 1 % lotion (Sarna 1 applic topical BID 10/04/21 11/16/21 Sensitive) stinging nettle root See Rx Instructions .Route .COMPLEX 10/04/21 11/16/21 diclofenac sodium 1 % topical gel 2 g topical QID PRN 10/18/21 11/16/21 (Arthritis Pain (diclofenac)) amlodipine 10 mg tablet 10 mg PO QDAY 11/16/21 11/16/21 Previous Rx's Medication Instructions Recorded gabapentin 300 mg capsule 300 mg PO QHS #90 caps 11/16/21 oxybutynin chloride 5 mg tablet 5 mg PO QHS PRN bladder spasms #90 11/16/21 tabs finasteride 5 mg tablet 5 mg PO QDAY #30 tabs 11/17/21 tamsulosin 0.4 mg capsule 0.8 mg PO QDAY #60 caps 11/17/21 Allergies Allergy/AdvReac Type Severity Reaction Status Date / Time No Known Drug Allergies Allergy Verified 02/15/22 15:36 Review of Systems ROS ROS Narrative: Narrative: All systems ED: reviewed and negative except as stated. 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) Pruritic erythematous rash (Chronic) URI (upper respiratory infection) (Chronic) COVID-19 (Chronic) Pneumonia (Chronic) Essential hypertension (Chronic) Calculus of kidney (Chronic) Knee swelling (Chronic) Suprapatellar effusion of knee (Chronic) Pulled hamstring (Chronic) Abdominal pain (Chronic) Bronchitis (Chronic) Pneumonia (Chronic) Thoracolumbar back pain (Chronic) BPH w urinary obs/LUTS (Acute) Peripheral neuropathy (Acute) Flank pain (Acute) Acute renal failure (ARF) (Acute) Benign essential HTN (Acute) Medical History Abdominal pain Benign hypertension with CKD (chronic kidney disease) stage III Baseline creatinine clearance 45 to 50 cc/min with a bland urinalysis Blood pressure goal 130 over Bronchitis Calculus of kidney Repeat U/S but urine benign COVID-19 Essential hypertension Controlled with valsartan 320 mg at bedtime => now discontinued No longer requiring amlodipine or thiazide Gastroenteritis Hypokalemia GI losses from Salmonella enteritis Hyponatremia Thought to be related to hydrochlorothiazide Knee swelling Leg pain, left Metabolic acidosis Pneumonia Post-op pain Pruritic erythematous rash Pulled hamstring Suprapatellar effusion of knee Thoracolumbar back pain URI (upper respiratory infection) Surgical History History of knee replacement (~2018) Family History Other No pertinent family history Social History Smoking Status: Never smoker Alcohol Intake Frequency: does not drink Substance Use: does not use Exam Narrative Narrative: General: AOx3, NAD, nontoxic appearing. Pleasant and conversant. HEENT: PERRL, EOMI, normocephalic. Moist mucous membranes. Normal facies and normal dentition. Mucous membranes are healthy and pink. Chest: Symmetric, no pain to palpation Respiratory: Lungs clear to auscultation bilaterally. No respiratory distress. Unlabored breathing. Heart: Regular rate and rhythm, no murmurs/clicks/rubs. Abdomen: Obese, mild epigastric tenderness, Non distended Extremities: Warm and well perfused. No edema. DP 2+ bilaterally. No venous stasis. Neuro: No focal deficits. Cranial nerves II-XII grossly normal. Skin: Warm dry, no rashes or lesions, no cyanosis. Psych: Normal mood and affect Heme/Lymph: No abnormal bruising Course Course Course Narrative: 71-year-old male presents with postprandial epigastric pain and diarrhea with complaints of melanic stool Reevaluation(s) Reevaluation #1: Obtain CBC, Chem-[address] angio of the abdomen and pelvis to query for recurrent mesenteric ischemia versus SBO Reevaluation #2: CT of the abdomen pelvis shows a 6 mm stone in the distal common duct. There is no gallbladder wall thickening or pericholecystic fluid. Patient CBC is without leukocytosis. I did order hepatic panel which is currently pending. CT abdomen this also shows no evidence of diverticulitis or bleed. No SBO. Reached out to Dr. Stephens for consultation. At this time he is recommending admission observation and ERCP tomorrow with Dr. Faustin. Reevaluation #3: Hepatic panel with significant elevation of his T bili to 7.7 and transaminitis with AST of 236, ALT of 334, alk phos of 221 Vital Signs Vital signs: Vital Signs Temperature 98.4 F 10/25/22 15:32 Pulse Rate 65 02/15/22 15:32 Respiratory Rate 18 02/15/22 15:32 Blood Pressure 203/89 02/15/22 15:32 Pulse Oximetry (%) 96 02/15/22 15:32 Oxygen Delivery Method 02/15/22 15:32 Temperature 98.4 F 02/15/22 15:32 Pulse Rate 68 02/15/22 19:37 Respiratory Rate 18 02/15/22 15:32 Blood Pressure 144/75 02/15/22 19:32 Pulse Oximetry (%) 98 02/15/22 19:37 Oxygen Delivery Method 02/15/22 15:32 MDM MDM Narrative Medical decision making narrative: Choledocholithiasis I spoke with Dr. Stephens who is recommending observation admission and ERCP tomorrow with Dr. Faustin and cholecystectomy.. Consultation placed to Dr. Faustin. Transfer hold orders have been written. Lab Data Result diagrams: 02/15/22 16:04 Labs: Lab Results 02/15/22 02/15/22 02/15/22 Range/Units 16:04 16:04 16:07 WBC 9.1 (4.5-11.0) K/mcL RBC 5.24 (4.63-6.08) M/mcL Hgb 15.4 (13.7-17.5) g/dL Hct 44.3 (40.1-51.0) % POC Hct 44.0 (41-55) MCV 84.5 (80.0-100.0) fL MCH 29.4 (26.0-34.0) pg MCHC 34.8 (31.0-36.0) g/dL RDW 13.2 (11.5-14.5) % Plt Count 213 (140-440) K/mcL MPV 9.4 (8.8-12.5) fL Immature Gran % (Auto) 0.4 (0.0-0.5) % Neut % (Auto) 65.5 (38.0-78.0) % Lymph % (Auto) 22.8 (15.5-49.0) % Hitchcock % (Auto) 8.9 (1.0-12.0) % Eos % (Auto) 1.4 (0.0-7.0) % Baso % (Auto) 1.0 (0.0-2.0) % Lymph # (Auto) 2.07 (1.50-4.80) K/mcL Hitchcock # (Auto) 0.81 (0.10-0.90) K/mcL Eos # (Auto) 0.13 (0.00-0.70) K/mcL Baso # (Auto) 0.09 (0.00-0.30) K/mcL Immature Gran # 0.04 (0.00-0.05) K/mcl Absolute Neutrophils 5.92 (1.80-8.00) K/mcL POC Sodium 141 (133-145) POC Potassium 3.8 (3.3-5.1) POC Chloride 105 (96-108) POC Total CO2 25.0 (22-30) POC BUN 20 (6-20) POC Creatinine 1.1 (0.6-1.2) POC Glucose 102 (70-105) POC WB Ioniz Calcium 1.15 L (1.16-1.32) Total Bilirubin 7.7 H (0.1-1.0) mg/dL Direct Bilirubin 5.7 H (<0.3) mg/dL AST 236 H (<40) U/L ALT 334 H (<40) U/L Alkaline Phosphatase 221 H (39-117) U/L Total Protein 6.7 (5.9-8.4) gm/dL Albumin 3.9 (3.2-5.2) gm/dL Globulin 2.8 (2.2-3.7) gm/dL Discharge Plan Patient/Caregiver Discharge Instructions Pt seen by [employer] [facility]PA only: Yes Clinical Impression: Cholelithiasis with choledocholithiasis Patient Disposition: Xfer As Inpt ([facility]) Follow up with: Alonzo Yee DO [Primary Care Provider] - Prescriptions: No Action tamsulosin 0.4 mg capsule 0.8 mg PO QDAY Qty: 60 5RF finasteride 5 mg tablet 5 mg PO QDAY Qty: 30 5RF triamcinolone acetonide 0.1 % cream 1 applic topical QDAY Green Tea Fat Burner See Rx Instructions .ROUTE .COMPLEX Rx Instructions: Once daily; b 12 See Rx Instructions .ROUTE .COMPLEX Rx Instructions: 2500 mcg once daily; joint discomfort & inflammation foam See Rx Instructions .ROUTE .COMPLEX Rx Instructions: use as directed; Joint Restore Gummies See Rx Instructions .ROUTE .COMPLEX Rx Instructions: 1 cap by mouth QD- CBD gummies; Liquid Morning Vitamin See Rx Instructions .ROUTE .COMPLEX Rx Instructions: Once daily; acetaminophen [Tylenol Extra Strength] 500 mg tablet 500 mg PO Q6H PRN Prostate Advance See Rx Instructions .ROUTE .COMPLEX Rx Instructions: 1 cap by mouth three times a day with meals; Gut MD See Rx Instructions .ROUTE .COMPLEX Rx Instructions: 1 cap by mouth once daily; stinging nettle root See Rx Instructions .ROUTE .COMPLEX Rx Instructions: 1 tablet by mouth once daily; pramoxine [Sarna Sensitive] 1 % lotion 1 applic topical BID diclofenac sodium [Arthritis Pain (diclofenac)] 1 % gel 2 g topical QID PRN Rx Instructions: apply to single elbow, wrist or hand; for hand includes palm/fingers/back of hand amlodipine 10 mg tablet 10 mg PO QDAY oxybutynin chloride 5 mg tablet 5 mg PO QHS PRN (Reason: bladder spasms) Qty: 90 3RF gabapentin 300 mg capsule 300 mg PO QHS Qty: 90 3RF
--- NOTE | 2022-02-15 17:57 | Cat Scan Report ---
INDICATION: h/o ischemic colitis, now with GIB COMPARISON: Previous CT scans dated 01/09/2021, 06/25/2020 TECHNIQUE: Axial images were obtained through the abdomen and pelvis. Sagittally and coronally reformatted images. 90 mL Isovue 370 injected intravenously. Precontrast, arterial phase, and delayed venous phase images obtained. Oral contrast material was not administered FINDINGS: Lung bases:Negative. No pulmonary parenchymal nodule. No pleural fluid or pericardial fluid. There is coronary artery calcification Liver:No focal intrahepatic abnormalities. Liver contour is smooth. Gallbladder, bilary:Multiple calcified gallstones. No gallbladder wall thickening or pericholecystic fluid. There is a 6 mm stone in the distal common bile duct. Common bile duct is dilated to 11 mm. There is slight intrahepatic bile duct dilatation Spleen:No splenomegaly. Normal enhancement of splenic and portal veins. Pancreas:No pancreatic mass. No peripancreatic abnormality Adrenal glands:Negative Kidneys,ureters,bladder:There is a 2 mm nonobstructing right lower pole renal stone. No hydronephrosis or solid renal mass No hydroureter. No ureteral calculus. No bladder stone. No detectable bladder mass. Gastrointestinal:No detectable colonic mass. There is prominent sigmoid colon diverticulosis. There may be. Colonic infiltration in the proximal sigmoid colon. Mild diverticulitis is possible. Findings consistent with previous small bowel resection and enteroenterostomy anastomosis. There is a dilated segment at the anastomosis. This is unchanged. No evidence for significant mechanical small bowel obstruction Negative stomach and duodenum. No focal abnormality. There is no detectable gastrointestinal hemorrhage. There is no contrast extravasation or pooling within the colon, small bowel, duodenum, or stomach. Patient apparently has a history of ischemic colitis or enteritis. There is no evidence for ischemic bowel on present examination. There is normal small and large bowel wall enhancement. Appendix: The appendix is not visualized. No evidence for appendicitis Vascular:There is mild calcification of the abdominal aorta. No abdominal aortic aneurysm. There is calcification at the origins of the celiac trunk and superior mesenteric artery. There is no stenosis. Normal opacification of superior mesenteric artery branches. Inferior mesenteric artery is opacified. Lymphatic:No retroperitoneal or mesenteric adenopathy Mesentery, peritoneum: There is calcification of the anterior abdominal wall. This is supraumbilical. This is chronic. There is no soft tissue mass Reproductive:Prostate is not significantly enlarged Musculoskeletal:No lumbar compression fractures. Sacrum and pelvis are negative. No hip fracture. No abdominal wall or inguinal hernia IMPRESSION: 1. Cholelithiasis 2. Choledocholithiasis with mild intra and extrahepatic bile duct dilatation 3. Findings consistent with previous small bowel resection and enteroenterostomy anastomosis. There is a dilated segment of small bowel at the anastomosis. This is stable. No acute mechanical small bowel obstruction 4. Diverticulosis. Possible mild proximal sigmoid diverticulitis 5. No detectable active gastrointestinal hemorrhage. No contrast extravasation or pooling 6. Coronary artery calcification The exam was performed using radiation dose optimization techniques including, but not limited to, automated exposure control, adjustment of the mA and/or kV according to patient size and use of iterative reconstruction technique. Interpreted and Authenticated by: Alonzo Alejandra 02/15/22
[2022-02-15] MEDS ORDERED: ONDANSETRON 4 MG/2 ML VIAL IV ONE (18:48)
[2022-02-15 18:55] LABS: ALT/SGPT 334 U/L (<40); AST/SGOT 236 U/L (<40); Albumin 3.9 gm/dL (3.2-5.2); Alkaline Phosphatase 221 U/L (39-117); Bilirubin,Direct 5.7 mg/dL (<0.3); Bilirubin,Total 7.7 mg/dL (0.1-1.0); Globulin 2.8 gm/dL (2.2-3.7)
[2022-02-15] MEDS: 0.9 % SODIUM CHLORIDE 1,000 ML IV SCH (20:46)
[2022-02-15] MEDS: HYDROmorphone 1 MG/ML SYRINGE IV PRN (20:52)
[2022-02-15] MEDS: PIPERACILLIN SODIUM/TAZOBACTAM 3.375 GM in DEXTROSE 5% IN WATER 50 ML IV SCH (21:37)
--- NOTE | 2022-02-15 21:52 | General Surg History&Physical ---
HPI History of Present Illness Patient information: Note initiated : 02/15/22 at 9:38 pm Service Date, if different from initiated Date: [] Patient: Jonas Noble a 71 y/o M admitted on 02/15/22 for bowel obstruction. Chief Complaint: [] Chief complaint: ABDOMINAL PAIN History of present illness: Mr. Noble is a 71 year old M WITH 2 DAY H/O DIFFUSE UPPER ABDOMINAL PAIN WITH NAUSEA. PAIN WAS MUCH MORE SEVERE IN POST PRANDIAL PERIOD. HE WAS SEEN IN THE E.R. WITH APPARENT JAUNDICE AND ELEVATED LFT'S AND BILIRUBIN. HIS BILI IS 7.7AND ALL LFT'S ARE ELEVATED . C.T SHOWS DILATED CBD AND INTRAHEPATIC DUCTS WITH A 6mm DISTAL CBD STONE. HE HAS MULTIPLE STONES IN TH GALLBLADDER. HE IS ADMITTED AND WE WILL ATTEMPT TO GET AN ERCP FOLLOWED BY CHOLECYSTECOMY DURING THIS ADMISSION. PFSH PFSH All Active Problems (Updated 02/20/22 @ 08:37 by Jayant Rai MD) Acute respiratory failure with hypoxia (Acute) Pneumonia involving left lung (Acute) Stage 1 acute kidney injury (Acute) Postoperative haemorrhage (Acute) Intercostal muscle strain (Acute) Cholelithiasis with choledocholithiasis (Acute) Overactive bladder (Acute) Leg pain, left (Chronic) Post-op pain (Chronic) Hyponatremia (Chronic) Metabolic acidosis (Chronic) Hypokalemia (Chronic) Gastroenteritis (Chronic) Benign hypertension with CKD (chronic kidney disease) stage III (Chronic) Pruritic erythematous rash (Chronic) URI (upper respiratory infection) (Chronic) COVID-19 (Chronic) Pneumonia (Chronic) Essential hypertension (Chronic) Calculus of kidney (Chronic) Knee swelling (Chronic) Suprapatellar effusion of knee (Chronic) Pulled hamstring (Chronic) Abdominal pain (Chronic) Bronchitis (Chronic) Pneumonia (Chronic) Thoracolumbar back pain (Chronic) BPH w urinary obs/LUTS (Acute) Peripheral neuropathy (Acute) Flank pain (Acute) Acute renal failure (ARF) (Acute) Benign essential HTN (Acute) Medical History Abdominal pain Benign hypertension with CKD (chronic kidney disease) stage III Baseline creatinine clearance 45 to 50 cc/min with a bland urinalysis Blood pressure goal 130 over Bronchitis Calculus of kidney Repeat U/S but urine benign COVID-19 Essential hypertension Controlled with valsartan 320 mg at bedtime => now discontinued No longer requiring amlodipine or thiazide Gastroenteritis Hypokalemia GI losses from Salmonella enteritis Hyponatremia Thought to be related to hydrochlorothiazide Knee swelling Leg pain, left Metabolic acidosis Pneumonia Post-op pain Pruritic erythematous rash Pulled hamstring Suprapatellar effusion of knee Thoracolumbar back pain URI (upper respiratory infection) Surgical History History of knee replacement (~2018) Family History Other No pertinent family history Social History marital status: smoking status: Never smoker alcohol intake frequency: does not drink substance use type: does not use MEDS/ALLERGIES Home Medications and Allergies Home Medications Medication Instructions Recorded Confirmed Type Green Tea Fat Burner See Rx Instructions .Route .COMPLEX 10/04/21 02/21/22 History Gut MD See Rx Instructions .Route .COMPLEX 10/04/21 02/21/22 History Joint Restore Gummies See Rx Instructions .Route .COMPLEX 10/04/21 02/21/22 History Liquid Morning Vitamin See Rx Instructions .Route .COMPLEX 10/04/21 02/21/22 History Prostate Advance See Rx Instructions .Route .COMPLEX 10/04/21 02/21/22 History acetaminophen 500 mg tablet 500 mg PO Q6H PRN Pain 10/04/21 02/21/22 History (Tylenol Extra Strength) joint discomfort & inflammation See Rx Instructions .Route .COMPLEX 10/04/21 02/21/22 History foam pramoxine 1 % lotion (Sarna 1 applic topical BID 10/04/21 02/21/22 History Sensitive) stinging nettle root See Rx Instructions .Route .COMPLEX 10/04/21 02/21/22 History diclofenac sodium 1 % topical gel 2 g topical QID PRN Pain 10/18/21 02/21/22 History (Arthritis Pain (diclofenac)) amlodipine 10 mg tablet 10 mg PO QDAY 11/16/21 11/16/21 History gabapentin 300 mg capsule 300 mg PO QHS #90 caps 11/16/21 02/21/22 Rx oxybutynin chloride 5 mg tablet 5 mg PO QHS PRN bladder spasms #90 11/16/21 02/21/22 Rx tabs finasteride 5 mg tablet 5 mg PO QDAY #30 tabs 11/17/21 02/21/22 Rx tamsulosin 0.4 mg capsule 0.8 mg PO QDAY #60 caps 11/17/21 02/21/22 Rx Allergies Allergy/AdvReac Type Severity Reaction Status Date / Time No Known Drug Allergies Allergy Verified 02/15/22 20:20 Physical Examination Vital Signs Vital signs: Temp Pulse Resp BP Pulse Ox O2 Del Method 97.8 F 64 18 181/79 97 02/15/22 20:33 02/15/22 20:33 02/15/22 20:33 02/15/22 20:33 02/15/22 20:33 02/15/22 20:33 General physical appearance General physical exam: well developed, well nourished, no distress, no pain and obese Eyes Eye exam: PERRL, normal ocular movement and icteric (DEEP CLINICAL ICTERUS) ENT ENT exam: normal nares, normal mucosa, decreased hearing and mucosal exudate Head Head exam IM: Present atraumatic, normal inspection and normocephalic Neck Neck exam: no masses, no bruits, trachea midline, no lymphadenopathy and no venous distension Cardiovascular Cardiovascular exam IM: Present normal rate and rhythm, RRR, +S1 and +S2; Absent JVD Respiratory Respiratory exam: normal expansion, normal respiratory effort and clear to auscultation Abdomen Abdomen: Present tender (RUQ), bowel sounds, surgical scars (WELL HEALED) and distended Integumentary Integumentary: Present no rash, no growths and no abnormal pigmentation Neurologic Neurologic: Present normal coordination and normal sensation Musculoskeletal Musculoskeletal: Present normal gait and normal posture Psychiatric Psychiatric: Present oriented to time, oriented to person, oriented to place, speech is normal and memory intact Results Labs Result diagrams: 02/21/22 05:14 02/21/22 05:14 Labs: Abnormal lab results 02/15/22 02/15/22 Range/Units 16:04 16:07 POC WB Ioniz Calcium 1.15 L (1.16-1.32) Total Bilirubin 7.7 H (0.1-1.0) mg/dL Direct Bilirubin 5.7 H (<0.3) mg/dL AST 236 H (<40) U/L ALT 334 H (<40) U/L Alkaline Phosphatase 221 H (39-117) U/L Diabetes panel 02/15/22 Range/Units 16:04 AST 236 H (<40) U/L ALT 334 H (<40) U/L Alkaline Phosphatase 221 H (39-117) U/L Total Protein 6.7 (5.9-8.4) gm/dL Albumin 3.9 (3.2-5.2) gm/dL Calcium panel 02/15/22 Range/Units 16:04 Albumin 3.9 (3.2-5.2) gm/dL Adrenal panel 02/15/22 Range/Units 16:04 Total Bilirubin 7.7 H (0.1-1.0) mg/dL AST 236 H (<40) U/L ALT 334 H (<40) U/L Alkaline Phosphatase 221 H (39-117) U/L Total Protein 6.7 (5.9-8.4) gm/dL Albumin 3.9 (3.2-5.2) gm/dL All other labs normal. A/P Assessment and plan (1) Cholelithiasis with choledocholithiasis: Status: Acute (2) Abdominal pain: Status: Chronic Qualifiers: Abdominal location: left upper quadrant Qualified Code(s): R10.12 - Left upper quadrant pain (3) Benign essential HTN: Status: Acute Comment: Goal < 140/90 Plan ADMIT FOR URGENT ERCP ZOSYN 3.375GM IVQ6H ANTIEMETIC S CHOLECYSTECTOMY DURING THIS ADMISSION Time Spent With Patient Time: Total time spent is greater than 50% in coordination of care (as documented) at patient's floor/unit and/or counseling patient:
[2022-02-15] MEDS: hydrALAZINE 20 MG/ML VIAL IV PRN (23:49)
[2022-02-16] MEDS ORDERED: hydrALAZINE 20 MG/ML VIAL ONE (00:01)
[2022-02-16] MEDS: ALPRAZolam 0.5 MG TABLET PO PRN (00:46)
[2022-02-16] MEDS: PIPERACILLIN SODIUM/TAZOBACTAM 3.375 GM in DEXTROSE 5% IN WATER 50 ML IV SCH ×5 (01:29→23:27)
--- NOTE | 2022-02-16 06:03 | XRay Report ---
INDICATION: PREOP EVALUATION TECHNIQUE: AP portable semiupright chest x-ray COMPARISON: Previous chest x-rays dated 11/21/2021, 02/25/2021 FINDINGS: Lungs:Lungs are negative. No focal pulmonary parenchymal infiltrate or mass Heart, vascular:No significant cardiomegaly. Pulmonary vascularity is normal. No pulmonary edema or pulmonary congestion Mediastinum, nathan:No mediastinal widening. No hilar mass Pleura:No pleural fluid. No pleural-based mass or calcification Skeletal:Negative. IMPRESSION: No acute abnormality Interpreted and Authenticated by: Alonzo Alejandra 02/16/22
[2022-02-16 06:58] LABS: Basophils # (Auto) 0.07 K/mcL (0.00-0.30); Basophils % (Auto) 0.9 % (0.0-2.0); Eosinophils # (Auto) 0.15 K/mcL (0.00-0.70); Eosinophils % (Auto) 1.9 % (0.0-7.0); Hematocrit 45.6 % (40.1-51.0); Hemoglobin 15.8 g/dL (13.7-17.5); Lymphocytes # (Auto) 1.86 K/mcL (1.50-4.80); Lymphocytes % (Auto) 24.2 % (15.5-49.0); Mean Cell Volume 84.1 fL (80.0-100.0); Mean Corpuscular HGB Conc 34.6 g/dL (31.0-36.0); Mean Platelet Volume 9.7 fL (8.8-12.5); Monocytes # (Auto) 0.82 K/mcL (0.10-0.90); Monocytes % (Auto) 10.6 % (1.0-12.0); Neutrophils % (Auto) 61.9 % (38.0-78.0); Platelet Count 206 K/mcL (140-440); RBC 5.42 M/mcL (4.63-6.08); Red Cell Distribution Width 13.3 % (11.5-14.5); WBC 7.7 K/mcL (4.5-11.0)
[2022-02-16] MEDS: 0.9 % SODIUM CHLORIDE 1,000 ML IV SCH ×3 (07:06→19:44)
[2022-02-16 07:09] LABS: ALT/SGPT 315 U/L (<40); AST/SGOT 167 U/L (<40); Albumin 3.7 gm/dL (3.2-5.2); Albumin/Globulin Ratio 1.3 (1.0-2.3); Alkaline Phosphatase 244 U/L (39-117); Bilirubin,Direct 5.7 mg/dL (<0.3); Bilirubin,Total 8.2 mg/dL (0.1-1.0); Blood Urea Nitrogen 14 mg/dL (8-23); Calcium 8.7 mg/dL (8.6-10.4); Carbon Dioxide 22 mmol/L (22-30); Chloride 101 mmol/L (96-108); Globulin 2.8 gm/dL (2.2-3.7); Glomerular Filtration Rate 84; Glucose 120 mg/dL (70-105); Lactate Dehydrogenase 241 U/L (135-225); Phosphorous 2.6 mg/dL (2.5-4.5); Triglycerides 227 mg/dL (<150); Uric Acid 5.7 mg/dL (2.5-8.0)
[2022-02-16] MEDS ORDERED: SCOPOLAMINE 1 PATCH PATCH TOPICAL PRN (09:30)
[2022-02-16] MEDS: hydrALAZINE 20 MG/ML VIAL IV PRN ×2 (11:50→18:41)
--- NOTE | 2022-02-16 12:34 | Internal Medicine Consult Note ---
HPI Date of Consult Consult Date: 02/16/22 Requesting physician: Dominguez Stephens Primary Care Provider: Alonzo Yee DO Consult Narrative Patient Information: Note initiated : 02/16/22 at 12:29 pm Service Date, if different from initiated Date: [] Patient: Jonas Noble 71 y/o M admitted on 02/15/22 for choledocholithiasis. Chief Complaint: [Choledocholithiasis] Mr Noble is a 71 year old white male who presented for evaluation of a 3 day history of upper abdominal pain with nausea. He initially thought he was constipated and took prune juice, dusty selzer and Advil; pain subsided after 1 hour. He had recurrent pain 1 hour postprandially that lasted 2 hours and 1 loose BM the following day. When pain recurred yesterday, he presented to the ER where CT showed CBD 11mm with choledocholithiasis 6mm. There is no pancreatic duct dilatation. He has been afebrile without leukocytosis. Total bilirubin 8.2, ALP 244. He last underwent colonoscopy 2010 and had a post polypectomy bleed. Since then, he has had negative Cologuard. 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 He has not had any recurrence. 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) Pruritic erythematous rash (Chronic) URI (upper respiratory infection) (Chronic) COVID-19 (Chronic) Pneumonia (Chronic) Essential hypertension (Chronic) Calculus of kidney (Chronic) Knee swelling (Chronic) Suprapatellar effusion of knee (Chronic) Pulled hamstring (Chronic) Abdominal pain (Chronic) Bronchitis (Chronic) Pneumonia (Chronic) Thoracolumbar back pain (Chronic) BPH w urinary obs/LUTS (Acute) Peripheral neuropathy (Acute) Flank pain (Acute) Acute renal failure (ARF) (Acute) Benign essential HTN (Acute) Medical History Abdominal pain Benign hypertension with CKD (chronic kidney disease) stage III Baseline creatinine clearance 45 to 50 cc/min with a bland urinalysis Blood pressure goal 130 over Bronchitis Calculus of kidney Repeat U/S but urine benign COVID-19 Essential hypertension Controlled with valsartan 320 mg at bedtime => now discontinued No longer requiring amlodipine or thiazide Gastroenteritis Hypokalemia GI losses from Salmonella enteritis Hyponatremia Thought to be related to hydrochlorothiazide Knee swelling Leg pain, left Metabolic acidosis Pneumonia Post-op pain Pruritic erythematous rash Pulled hamstring Suprapatellar effusion of knee Thoracolumbar back pain URI (upper respiratory infection) Surgical History History of knee replacement (~2017) Family History Other No pertinent family history Social History marital status: smoking status: Never smoker alcohol intake frequency: does not drink substance use type: does not use MEDS/ALLERGIES Home Medications and Allergies Home Medications Medication Instructions Recorded Confirmed Type triamcinolone acetonide 0.1 % 1 applic topical QDAY 06/11/21 11/16/21 History topical cream Green Tea Fat Burner See Rx Instructions .Route .COMPLEX 10/04/21 11/16/21 History Gut MD See Rx Instructions .Route .COMPLEX 10/04/21 11/16/21 History Joint Restore Gummies See Rx Instructions .Route .COMPLEX 10/04/21 11/16/21 History Liquid Morning Vitamin See Rx Instructions .Route .COMPLEX 10/04/21 11/16/21 History Prostate Advance See Rx Instructions .Route .COMPLEX 10/04/21 11/16/21 History acetaminophen 500 mg tablet 500 mg PO Q6H PRN 10/04/21 11/16/21 History (Tylenol Extra Strength) b 12 See Rx Instructions .Route .COMPLEX 10/04/21 11/16/21 History joint discomfort & inflammation See Rx Instructions .Route .COMPLEX 10/04/21 11/16/21 History foam pramoxine 1 % lotion (Sarna 1 applic topical BID 10/04/21 11/16/21 History Sensitive) stinging nettle root See Rx Instructions .Route .COMPLEX 10/04/21 11/16/21 History diclofenac sodium 1 % topical gel 2 g topical QID PRN 10/18/21 11/16/21 History (Arthritis Pain (diclofenac)) amlodipine 10 mg tablet 10 mg PO QDAY 11/16/21 11/16/21 History gabapentin 300 mg capsule 300 mg PO QHS #90 caps 11/16/21 11/16/21 Rx oxybutynin chloride 5 mg tablet 5 mg PO QHS PRN bladder spasms #90 11/16/21 11/16/21 Rx tabs finasteride 5 mg tablet 5 mg PO QDAY #30 tabs 11/17/21 Rx tamsulosin 0.4 mg capsule 0.8 mg PO QDAY #60 caps 11/17/21 Rx Allergies Allergy/AdvReac Type Severity Reaction Status Date / Time No Known Drug Allergies Allergy Verified 02/15/22 20:20 EXAM Constitutional Vitals: Temp Pulse Resp BP Pulse Ox O2 Del Method 97.5 F 73 18 175/90 96 02/16/22 11:46 02/16/22 11:46 02/16/22 11:46 02/16/22 11:46 02/16/22 11:46 02/16/22 11:46 General appearance: cooperative, no acute distress and obese Head Head exam: Present atraumatic, normal inspection and normocephalic Eye Eye exam: Present scleral icterus ENT ENT exam: Present mucous membranes moist Neck Neck exam: Present normal inspection Respiratory Respiratory exam: Present normal respiratory exam and CTAB; Absent accessory muscle use Cardiovascular Cardiovascular exam: Present normal rate and rhythm; Absent gallop, rubs or systolic murmur GI/Abdominal GI/Abdominal exam: Present normal bowel sounds, soft and tenderness Expanded GI/Abdominal Exam GI/Abdominal exam: Absent ascites Neurological Exam Neurological exam: Present alert and normal gait Psychiatric Psychiatric exam: Present normal affect and normal mood Skin Skin exam: Present dry, normal color and warm DATA Data Completed and Pending Labs: Labs from last 24 hours 02/16/22 02/16/22 02/15/22 05:49 05:49 16:07 WBC 7.7 RBC 5.42 Hgb 15.8 Hct 45.6 POC Hct 44.0 MCV 84.1 MCH 29.2 MCHC 34.6 RDW 13.3 Plt Count 206 MPV 9.7 Immature Gran % (Auto) 0.5 Neut % (Auto) 61.9 Lymph % (Auto) 24.2 [place] % (Auto) 10.6 Eos % (Auto) 1.9 Baso % (Auto) 0.9 Lymph # (Auto) 1.86 [place] # (Auto) 0.82 Eos # (Auto) 0.15 Baso # (Auto) 0.07 Immature Gran # 0.04 Absolute Neutrophils 4.76 POC Sodium 141 Sodium 138 POC Potassium 3.8 Potassium 3.9 POC Chloride 105 Chloride 101 Carbon Dioxide 22 POC Total CO2 25.0 Anion Gap 15.0 POC BUN 20 BUN 14 Creatinine 0.9 POC Creatinine 1.1 GFR Calculation 84 Glucose 120 H POC Glucose 102 Uric Acid 5.7 Calcium 8.7 POC WB Ioniz Calcium 1.15 L Phosphorus 2.6 Magnesium 1.9 Total Bilirubin 8.2 H Direct Bilirubin 5.7 H GGT 429 H AST 167 H ALT 315 H Alkaline Phosphatase 244 H Lactate Dehydrogenase 241 H Total Protein 6.5 Albumin 3.7 Globulin 2.8 Albumin/Globulin Ratio 1.3 Triglycerides 227 H 02/15/22 02/15/22 16:04 16:04 WBC 9.1 RBC 5.24 Hgb 15.4 Hct 44.3 POC Hct MCV 84.5 MCH 29.4 MCHC 34.8 RDW 13.2 Plt Count 213 MPV 9.4 Immature Gran % (Auto) 0.4 Neut % (Auto) 65.5 Lymph % (Auto) 22.8 [place] % (Auto) 8.9 Eos % (Auto) 1.4 Baso % (Auto) 1.0 Lymph # (Auto) 2.07 [place] # (Auto) 0.81 Eos # (Auto) 0.13 Baso # (Auto) 0.09 Immature Gran # 0.04 Absolute Neutrophils 5.92 POC Sodium Sodium POC Potassium Potassium POC Chloride Chloride Carbon Dioxide POC Total CO2 Anion Gap POC BUN BUN Creatinine POC Creatinine GFR Calculation Glucose POC Glucose Uric Acid Calcium POC WB Ioniz Calcium Phosphorus Magnesium Total Bilirubin 7.7 H Direct Bilirubin 5.7 H GGT AST 236 H ALT 334 H Alkaline Phosphatase 221 H Lactate Dehydrogenase Total Protein 6.7 Albumin 3.9 Globulin 2.8 Albumin/Globulin Ratio Triglycerides A/P Assessment and plan (1) Cholelithiasis with choledocholithiasis: Assessment and plan: We will proceed with ERCP. I described the procedure using an illustration. I reviewed the risks of bleeding, perforation, infection, pancreatitis. We reviewed the risk of not proceeding with ERCP including pancreatitis and ascending cholangitis. Cholecystectomy to follow. Status: Acute Time Spent With Patient Time: Total time spent is greater than 50% in coordination of care (as documented) at patient's floor/unit and/or counseling patient: Total time spent with greater than 50% in coordination of care (as documented) at patient's floor/unit and/or counseling patient:: 25 - 35 minutes
[2022-02-16] MEDS ORDERED: NITROGLYCERIN 0.6 MG/HR PATCH TD ONE ×2 (12:55)
[2022-02-16] MEDS ORDERED: INDOMETHACIN 25 MG CAPSULE PO ONE (12:55)
[2022-02-16] MEDS ORDERED: ACETAMINOPHEN 1,000 MG/100 ML BAG IV ONE (13:19)
--- NOTE | 2022-02-16 15:10 | General Surgery Progress Note ---
SUBJECTIVE Subjective Patient information: Note initiated : 02/16/22 at 3:03 pm Service Date, if different from initiated Date: [] Patient: Jonas Noble 71 y/o M admitted on 02/15/22 for bowel obstruction. Chief Complaint: [] Interval history: the patient is doing well. He is not does not have pain at this time. There is his bilirubin is 8.2, AST ALT. And alkaline phosphatase are elevated. He is supposed to have ERCP performed today. He denies nausea or vomiting.. Constitutional Vitals: Vital Signs Temp Pulse Resp BP Pulse Ox O2 Del Method 97.5 F 73 18 175/90 96 02/16/22 11:46 02/16/22 11:46 02/16/22 11:46 02/16/22 11:46 02/16/22 11:46 02/16/22 11:46 Period Temp Pulse Resp BP Sys/Maza Pulse Ox O2 Del Method O2 Flow Rate Last 24 Hr 97.1 F-98.4 F 53-73 16-18 144-203/75-170 94-99 Room Air-Room Air Intake and Output 02/16/22 02/16/22 02/16/22 05:59 13:59 21:59 Intake Total 100 1100 100 Output Total 1350 1100 Balance -1250 0 100 Intake & Output: Intake & Output 02/16/22 02/16/22 02/16/22 05:59 13:59 21:59 Intake Total 100 1100 100 Output Total 1350 1100 Balance -1250 0 100 Intake: IV 100 1100 100 Sodium Chloride 0.9% 1,000 ml @ 1000 100 mls/hr IV .Q10H RODRIGUE Rx#: [id number] Zosyn 3.375 gm In Dextrose 5% 100 100 in Water 50 ml @ 100 mls/hr IV Q6H RODRIGUE Rx#:[id number] Oral 0 Output: Void Amount 1350 1100 Other: Urine Appearance Clear Clear Urine Color Yellow Dark Paige Urine Odor Normal Normal Stool Size Moderate Stool Color Chance Stool Consistency Loose # Bowel Movements 1 Eye Eye exam: Present scleral icterus Pupils: Present normal accommodation ENT ENT exam: Present normal oropharynx Neck Neck exam: Present full ROM Respiratory Respiratory exam: Present normal respiratory exam and CTAB Cardiovascular Cardiovascular exam: Present normal rate and rhythm, RRR, +S1 and +S2; Absent JVD GI/Abdominal GI/Abdominal exam: Present normal bowel sounds and distended; Absent tenderness Extremities Exam Extremities exam: Present neurovascular intact Neurological Exam Neurological exam: Present oriented X3; Absent motor sensory deficit Psychiatric Psychiatric exam: Present normal affect and normal mood A/P Assessment and plan (1) Cholelithiasis with choledocholithiasis: Status: Acute (2) Abdominal pain: Status: Chronic Qualifiers: Abdominal location: left upper quadrant Qualified Code(s): R10.12 - Left upper quadrant pain Plan Patient is clinically stable. He has been seen by GI. He will have ERCP later today. Sepsis Sepsis Identified: No Time Spent With Patient Time: Total time spent is greater than 50% in coordination of care (as documented) at patient's floor/unit and/or counseling patient:
[2022-02-16] MEDS: HYDROmorphone 1 MG/ML SYRINGE IV PRN ×2 (17:36→19:43)
[2022-02-16] MEDS: PROMETHAZINE 25 MG/ML VIAL IV PRN (17:51)
[2022-02-17] MEDS: PIPERACILLIN SODIUM/TAZOBACTAM 3.375 GM in DEXTROSE 5% IN WATER 50 ML IV SCH ×3 (05:06→19:15)
[2022-02-17] MEDS: hydrALAZINE 20 MG/ML VIAL IV PRN (05:10)
[2022-02-17] MEDS: 0.9 % SODIUM CHLORIDE 1,000 ML IV SCH ×4 (05:14→19:15)
[2022-02-17] MEDS: PROMETHAZINE 25 MG/ML VIAL IV PRN (07:12)
--- NOTE | 2022-02-17 09:14 | EKG ---
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
[2022-02-17] MEDS: HYDROmorphone 1 MG/ML SYRINGE IV PRN (10:34)
[2022-02-17] MEDS ORDERED: PROPOFOL 200 MG/20 ML VIAL IV ONE ×3 (16:10→16:27)
[2022-02-17] MEDS ORDERED: MIDAZOLAM 2 MG/2 ML VIAL IV ONE ×2 (16:11→16:12)
[2022-02-17] MEDS ORDERED: GLUCAGON,HUMAN RECOMBINANT 1 MG VIAL IV PRN (16:11)
[2022-02-17] MEDS ORDERED: LACTATED RINGERS 1,000 ML IV SCH ×2 (16:15)
[2022-02-17] MEDS ORDERED: MIDAZOLAM 2 MG/2 ML VIAL ONE (16:27)
[2022-02-17] MEDS ORDERED: IOPAMIDOL 50 ML BOTTLE IJ ONE (16:50)
[2022-02-17] MEDS ORDERED: INDOMETHACIN 25 MG CAPSULE PO ONE (17:00)
[2022-02-17] MEDS ORDERED: NITROGLYCERIN 0.6 MG/HR PATCH TD ONE (17:00)
[2022-02-18] MEDS: PIPERACILLIN SODIUM/TAZOBACTAM 3.375 GM in DEXTROSE 5% IN WATER 50 ML IV SCH ×4 (00:57→16:58)
[2022-02-18] MEDS: 0.9 % SODIUM CHLORIDE 1,000 ML IV SCH ×3 (05:57→20:42)
[2022-02-18 07:51] LABS: ALT/SGPT 181 U/L (<40); AST/SGOT 86 U/L (<40); Albumin 3.3 gm/dL (3.2-5.2); Albumin/Globulin Ratio 1.2 (1.0-2.3); Alkaline Phosphatase 211 U/L (39-117); Bilirubin,Direct 1.9 mg/dL (<0.3); Bilirubin,Total 3.6 mg/dL (0.1-1.0); Blood Urea Nitrogen 14 mg/dL (8-23); Calcium 8.6 mg/dL (8.6-10.4); Carbon Dioxide 18 mmol/L (22-30); Chloride 105 mmol/L (96-108); Globulin 2.8 gm/dL (2.2-3.7); Glomerular Filtration Rate 66; Glucose 99 mg/dL (70-105); Lactate Dehydrogenase 235 U/L (135-225); Phosphorous 2.4 mg/dL (2.5-4.5); Triglycerides 215 mg/dL (<150); Uric Acid 4.8 mg/dL (2.5-8.0)
[2022-02-18] MEDS ORDERED: IPRATROPIUM/ALBUTEROL 3 ML AMPUL.NEB NEB PRN ×3 (09:15→13:26)
[2022-02-18] MEDS ORDERED: HYDROmorphone 1 MG/ML SYRINGE ONE (10:07)
[2022-02-18] MEDS ORDERED: GLYCOPYRROLATE 0.2 MG/ML VIAL IV ONE (10:07)
[2022-02-18] MEDS ORDERED: ONDANSETRON 4 MG/2 ML VIAL ONE (10:07)
[2022-02-18] MEDS ORDERED: MAGNESIUM SULFATE 2 GM/50 ML BAG IV ONE (10:07)
[2022-02-18] MEDS ORDERED: PROPOFOL 200 MG/20 ML VIAL IV ONE (10:07)
[2022-02-18] MEDS ORDERED: ESMOLOL 100 MG/10 ML VIAL IV ONE (10:07)
[2022-02-18] MEDS ORDERED: LIDOCAINE W/EPI 2% 20 ML VIAL ONE (10:07)
[2022-02-18] MEDS ORDERED: DEXAMETHASONE 10 MG/ML VIAL ONE (10:07)
[2022-02-18] MEDS ORDERED: fentaNYL 250 MCG/5 ML VIAL IV ONE (10:07)
[2022-02-18] MEDS ORDERED: SUGAMMADEX SODIUM 200 MG/2 ML VIAL IV ONE (10:07)
[2022-02-18] MEDS ORDERED: ROCURONIUM 10 MG/ML ML IV ONE (10:07)
[2022-02-18] MEDS ORDERED: KETAMINE 50 MG/ML Syringe (ANEST) IV ONE (10:07)
[2022-02-18] MEDS ORDERED: LIDOCAINE HCL/PF 100 MG/5 ML SYRINGE IV ONE (10:07)
[2022-02-18] MEDS ORDERED: ROPIVACAINE HCL/PF 20 ML VIAL IJ ONE (10:07)
[2022-02-18] MEDS ORDERED: METOPROLOL TARTRATE 5 MG/5 ML VIAL IV ONE (10:07)
[2022-02-18] MEDS ORDERED: morphine 2 MG/ML VIAL IV PRN ×2 (10:55→13:26)
[2022-02-18] MEDS ORDERED: NALOXONE HCL 0.4 MG/ML VIAL IV PRN ×2 (10:55→13:26)
[2022-02-18] MEDS ORDERED: PROMETHAZINE 25 MG/ML VIAL IM PRN ×2 (10:55→13:26)
[2022-02-18] MEDS ORDERED: METHOCARBAMOL 1,000 MG/10 ML VIAL IV PRN ×2 (10:55→13:26)
[2022-02-18] MEDS ORDERED: PROMETHAZINE 25 MG/ML VIAL IV PRN ×2 (10:55→13:26)
[2022-02-18] MEDS ORDERED: METOCLOPRAMIDE 10 MG/2 ML VIAL IV PRN ×2 (10:55→13:26)
[2022-02-18] MEDS ORDERED: MEPERIDINE 50 MG/ML VIAL IM PRN ×2 (10:55→13:26)
[2022-02-18] MEDS ORDERED: LACTATED RINGERS 250 ML IV PRN ×2 (10:55→13:26)
[2022-02-18] MEDS ORDERED: METOPROLOL TARTRATE 5 MG/5 ML VIAL IV PRN ×2 (10:55→13:26)
[2022-02-18] MEDS ORDERED: HYDROmorphone 0.5 MG/0.5 ML SYRINGE IV PRN ×2 (10:55→13:26)
[2022-02-18] MEDS ORDERED: ONDANSETRON 4 MG/2 ML VIAL IV PRN ×2 (10:55→13:26)
[2022-02-18] MEDS ORDERED: MEPERIDINE 25 MG/ML VIAL IV PRN ×2 (10:55→13:26)
[2022-02-18] MEDS ORDERED: ACETAMINOPHEN 1,000 MG/100 ML BAG IV ONE (10:55)
[2022-02-18] MEDS ORDERED: fentaNYL 100 MCG/2 ML VIAL IV PRN (10:55)
[2022-02-18] MEDS ORDERED: LACTATED RINGERS 1,000 ML IV SCH ×2 (11:00→13:30)
--- NOTE | 2022-02-18 11:56 | ERCP Procedure Note ---
ERCP Procedure Note Procedure Information Patient information: Note initiated : 02/18/22 at 11:51 am Patient: Jonas Noble 71 y/o M admitted on 02/15/22 for choledocholithiasis. Pre-op diagnosis general: Common bile duct stone. Post-op diagnosis general: Common bile duct stone. Date of Procedure: 02/17/22 Procedure: ERCP with Stone Extraction Procedure narrative: The procedures, alternatives and risks were discussed with the patient and the patient's questions were answered. With endoscopist-administered intravenous sedation, the Olympus side viewing operating duodenoscope was introduced into the esophagus and advanced to the second part of the duodenum without difficulty. The ampulla of Vater was visualized and papillotomy was performed. The cystic duct attaches a little low to the common bile duct; this is of no clinical significance. The bile duct was selectively cannulated taking care to avoid the pancreatic duct and cholangiogr am obtained. The bile duct was dilated with a common duct stone which was extracted with balloon techniques. At the end of the procedure, the bile duct appeared to be cleared of all stones. The scope was withdrawn. Assessment: Common bile duct stone.
--- NOTE | 2022-02-18 13:04 | Brief Operative Note ---
Brief Operative Note Date of procedure: 02/18/22 Pre-op diagnosis: cholelithiasis with cholecystitis Post-op diagnosis: other (cholelithiasis with cholecystitis;intraoperative enterotomy) Procedure: diagnostic laparotomy;open cholecystectomy;closure of small bowel enterotomy Grafts/Implants: No (yoselin drain x1) Anesthesia: GETA Findings: massive intra-abdominal adhesions; edematous gallbladder with stones Complications: other (small bowel enterotomy) Surgeon: Dominguez Stephens Estimated blood loss (cc): 250 Specimens Removed/Pathology: other (gallbladder) Condition: stable Disposition: PACU
[2022-02-18] MEDS ORDERED: LABETALOL 5 MG/ML ML IV PRN (13:26)
[2022-02-18] MEDS ORDERED: KETOROLAC 30 MG/ML VIAL IV PRN (13:26)
[2022-02-18] MEDS: fentaNYL 100 MCG/2 ML VIAL IV PRN ×2 (13:33→13:40)
[2022-02-18] MEDS ORDERED: fentaNYL 100 MCG/2 ML VIAL IV ONE (13:42)
[2022-02-18] MEDS ORDERED: MEPERIDINE 50 MG/ML VIAL ONE (13:43)
[2022-02-18] MEDS ORDERED: PROMETHAZINE 25 MG/ML VIAL ONE (13:43)
[2022-02-18] MEDS: HYDROmorphone 1 MG/ML SYRINGE IV PRN ×3 (15:35→19:57)
[2022-02-18] MEDS ORDERED: ACETAMINOPHEN 1,000 MG/100 ML BAG IV PRN (18:41)
[2022-02-18] MEDS ORDERED: TRANEXAMIC ACID 1,000 MG/10 ML VIAL IV STA (23:17)
[2022-02-18] MEDS ORDERED: 0.9 % SODIUM CHLORIDE 250 ML IV SCH (23:30)
[2022-02-19] MEDS: PIPERACILLIN SODIUM/TAZOBACTAM 3.375 GM in DEXTROSE 5% IN WATER 50 ML IV SCH ×5 (00:07→23:16)
[2022-02-19] MEDS: ACETAMINOPHEN 1,000 MG/100 ML BAG IV SCH ×4 (00:43→18:30)
[2022-02-19 01:05] LABS: Hematocrit 46.7 % (40.1-51.0); Hemoglobin 15.3 g/dL (13.7-17.5)
[2022-02-19] MEDS ORDERED: TRANEXAMIC ACID 1,000 MG/10 ML VIAL IV ONE (02:00)
[2022-02-19] MEDS: 0.9 % SODIUM CHLORIDE 1,000 ML IV SCH ×2 (03:07→14:35)
[2022-02-19 07:00] LABS: Basophils # (Auto) 0.02 K/mcL (0.00-0.30); Basophils % (Auto) 0.1 % (0.0-2.0); Eosinophils # (Auto) 0 K/mcL (0.00-0.70); Eosinophils % (Auto) 0 % (0.0-7.0); Hematocrit 37.9 % (40.1-51.0); Hemoglobin 12.9 g/dL (13.7-17.5); Lymphocytes # (Auto) 1.56 K/mcL (1.50-4.80); Lymphocytes % (Auto) 9.8 % (15.5-49.0); Mean Cell Volume 88.8 fL (80.0-100.0); Mean Platelet Volume 9.5 fL (8.8-12.5); Monocytes # (Auto) 1.22 K/mcL (0.10-0.90); Monocytes % (Auto) 7.6 % (1.0-12.0); Neutrophils % (Auto) 81.9 % (38.0-78.0); Platelet Count 221 K/mcL (140-440); RBC 4.27 M/mcL (4.63-6.08); Red Cell Distribution Width 14.8 % (11.5-14.5)
[2022-02-19 07:31] LABS: ALT/SGPT 170 U/L (<40); AST/SGOT 79 U/L (<40); Albumin 3.1 gm/dL (3.2-5.2); Alkaline Phosphatase 160 U/L (39-117); Bilirubin,Direct 0.9 mg/dL (<0.3); Bilirubin,Total 1.8 mg/dL (0.1-1.0); Blood Urea Nitrogen 17 mg/dL (8-23); Calcium 8.1 mg/dL (8.6-10.4); Carbon Dioxide 18 mmol/L (22-30); Chloride 101 mmol/L (96-108); Glomerular Filtration Rate 66; Glucose 172 mg/dL (70-105); Lactate Dehydrogenase 224 U/L (135-225); Phosphorous 2.9 mg/dL (2.5-4.5); Triglycerides 163 mg/dL (<150); Uric Acid 5.6 mg/dL (2.5-8.0)
--- NOTE | 2022-02-19 07:51 | XRay Report ---
INDICATION: ERCP TECHNIQUE: ERCP was performed by Dr. Lindsey. 3 minutes 31 seconds fluoroscopy utilized Spot films demonstrate a wire with the common bile duct. The common bile duct stone was extracted using balloon technique. COMPARISON: CT scan dated 02/15/2022 IMPRESSION: ERCP and intraprocedure fluoroscopy utilized by Dr. Lindsey Interpreted and Authenticated by: Alonzo Alejnadra 02/19/22
[2022-02-19] MEDS: TRANEXAMIC ACID 1,000 MG/10 ML VIAL IV SCH ×2 (10:31→14:35)
[2022-02-19] MEDS: METOCLOPRAMIDE 10 MG/2 ML VIAL IV SCH ×3 (12:17→23:16)
[2022-02-19 13:08] LABS: Basophils # (Auto) 0.02 K/mcL (0.00-0.30); Basophils % (Auto) 0.1 % (0.0-2.0); Eosinophils # (Auto) 0 K/mcL (0.00-0.70); Eosinophils % (Auto) 0 % (0.0-7.0); Hematocrit 38.4 % (40.1-51.0); Hemoglobin 13.1 g/dL (13.7-17.5); Lymphocytes # (Auto) 2.03 K/mcL (1.50-4.80); Lymphocytes % (Auto) 11.4 % (15.5-49.0); Mean Cell Volume 89.9 fL (80.0-100.0); Mean Corpuscular HGB Conc 34.1 g/dL (31.0-36.0); Mean Platelet Volume 9.5 fL (8.8-12.5); Monocytes # (Auto) 1.92 K/mcL (0.10-0.90); Monocytes % (Auto) 10.8 % (1.0-12.0); Neutrophils % (Auto) 77.2 % (38.0-78.0); Platelet Count 237 K/mcL (140-440); RBC 4.27 M/mcL (4.63-6.08); WBC 17.8 K/mcL (4.5-11.0)
--- NOTE | 2022-02-19 16:37 | General Surgery Progress Note ---
SUBJECTIVE Subjective Patient information: Note initiated : 02/19/22 at 4:31 pm Service Date, if different from initiated Date: [] Patient: Jonas Noble 71 y/o M admitted on 02/18/22 for bowel obstruction. Chief Complaint: [] Interval history: Patient is stable. His pain is controlled. He denies any nausea. He has had increased output of blood through his TREVER however his hemoglobin is stable at 13.1. LFTs continue to trend down with bilirubin at 1.8. Constitutional Vitals: Vital Signs Temp Pulse Resp BP Pulse Ox O2 Del Method O2 Flow Rate 98.4 F 90 12 144/71 95 2 02/19/22 16:00 02/19/22 16:00 02/19/22 16:00 02/19/22 16:00 02/19/22 16:00 02/19/22 16:00 02/18/22 17:00 Period Temp Pulse Resp BP Sys/Maza Pulse Ox O2 Del Method O2 Flow Rate Last 24 Hr 98.2 F-98.9 F 90-111 12-20 126-161/71-104 94-97 Nasal Cannula- Room Air 2 Intake and Output 02/19/22 02/19/22 02/19/22 05:59 13:59 21:59 Intake Total 450 1300 240 Output Total 386 920 300 Balance 64 380 -60 Intake & Output: Intake & Output 02/19/22 02/19/22 02/19/22 05:59 13:59 21:59 Intake Total 450 1300 240 Output Total 386 920 300 Balance 64 380 -60 Intake: IV 150 1300 Sodium Chloride 0.9% 1,000 ml @ 1000 100 mls/hr IV .Q10H RODRIGUE Rx#: [id number] Zosyn 3.375 gm In Dextrose 5% 50 100 in Water 50 ml @ 100 mls/hr IV Q6H RODRIGUE Rx#:[id number] Oral 300 240 Output: Drainage 310 50 Right Abdomen 310 50 Drainage 120 Right Abdomen 120 Void Amount 75 750 300 # of times incontinent of urine 1 Other: Meal Breakfast Percent of Meal Consumed 100% Feeding Ability Independent Urine Appearance Clear Clear Clear Urine Color Dark Paige Yellow Yellow Urine Odor Normal # Voids 1 Neck Neck exam: Present normal inspection; Absent lymphadenopathy Respiratory Respiratory exam: Present normal respiratory exam and CTAB Cardiovascular Cardiovascular exam: Present normal rate and rhythm, RRR, +S1 and +S2; Absent gallop or JVD GI/Abdominal GI/Abdominal exam: Present normal bowel sounds, distended (Mild distention) and tenderness (Moderate incisional tenderness) Extremities Exam Extremities exam: Present normal inspection and neurovascular intact Neurological Exam Neurological exam: Present oriented X3; Absent motor sensory deficit Psychiatric Psychiatric exam: Present normal affect and normal mood A/P Assessment and plan (1) Cholelithiasis with choledocholithiasis: Status: Acute (2) Postoperative haemorrhage: Status: Acute (3) Essential hypertension: Status: Chronic Comment: Controlled with valsartan 320 mg at bedtime => now discontinued No longer requiring amlodipine or thiazide Plan Continue present therapy decanter 20 Time Spent With Patient Time: Total time spent is greater than 50% in coordination of care (as documented) at patient's floor/unit and/or counseling patient:
[2022-02-19] MEDS: HYDROmorphone 1 MG/ML SYRINGE IV PRN ×4 (17:11→23:55)
[2022-02-19 18:32] LABS: Hematocrit 35.1 % (40.1-51.0); Hemoglobin 12.2 g/dL (13.7-17.5)
[2022-02-19] MEDS: PROMETHAZINE 25 MG/ML VIAL IV PRN (21:16)
[2022-02-19] MEDS: ALPRAZolam 0.5 MG TABLET PO PRN (23:54)
[2022-02-20] MEDS: 0.9 % SODIUM CHLORIDE 1,000 ML IV SCH ×3 (00:30→15:51)
[2022-02-20] MEDS: ACETAMINOPHEN 1,000 MG/100 ML BAG IV SCH ×4 (00:32→18:55)
[2022-02-20] MEDS: HYDROmorphone 1 MG/ML SYRINGE IV PRN ×8 (02:38→19:24)
[2022-02-20] MEDS: PIPERACILLIN SODIUM/TAZOBACTAM 3.375 GM in DEXTROSE 5% IN WATER 50 ML IV SCH ×4 (05:57→23:35)
[2022-02-20] MEDS: METOCLOPRAMIDE 10 MG/2 ML VIAL IV SCH ×4 (05:57→23:36)
[2022-02-20 07:12] LABS: Basophils # (Auto) 0.05 K/mcL (0.00-0.30); Basophils % (Auto) 0.3 % (0.0-2.0); Eosinophils # (Auto) 0.01 K/mcL (0.00-0.70); Eosinophils % (Auto) 0.1 % (0.0-7.0); Hematocrit 39.4 % (40.1-51.0); Hemoglobin 12.8 g/dL (13.7-17.5); Lymphocytes # (Auto) 1.06 K/mcL (1.50-4.80); Lymphocytes % (Auto) 5.9 % (15.5-49.0); Mean Cell Volume 89.7 fL (80.0-100.0); Mean Corpuscular HGB Conc 32.5 g/dL (31.0-36.0); Mean Platelet Volume 9.5 fL (8.8-12.5); Monocytes # (Auto) 1.58 K/mcL (0.10-0.90); Monocytes % (Auto) 8.8 % (1.0-12.0); Neutrophils % (Auto) 84.4 % (38.0-78.0); Platelet Count 270 K/mcL (140-440); RBC 4.39 M/mcL (4.63-6.08); Red Cell Distribution Width 14.8 % (11.5-14.5)
[2022-02-20 07:27] LABS: ALT/SGPT 131 U/L (<40); AST/SGOT 53 U/L (<40); Albumin 3.2 gm/dL (3.2-5.2); Alkaline Phosphatase 137 U/L (39-117); Bilirubin,Total 1.8 mg/dL (0.1-1.0); Blood Urea Nitrogen 23 mg/dL (8-23); Calcium 8.3 mg/dL (8.6-10.4); Carbon Dioxide 20 mmol/L (22-30); Chloride 105 mmol/L (96-108); Globulin 3.3 gm/dL (2.2-3.7); Glomerular Filtration Rate 45; Glucose 149 mg/dL (70-105); Lactate Dehydrogenase 258 U/L (135-225); Phosphorous 3.1 mg/dL (2.5-4.5); Triglycerides 160 mg/dL (<150); Uric Acid 5.5 mg/dL (2.5-8.0)
[2022-02-20] MEDS: hydrALAZINE 20 MG/ML VIAL IV PRN (07:31)
--- NOTE | 2022-02-20 08:13 | XRay Report ---
INDICATION: abdominal pain/distension TECHNIQUE: Supine abdomen. COMPARISON: Previous CT scan dated 02/15/2022 FINDINGS:Status post open cholecystectomy. There were surgical drains in the right upper abdominal quadrant. There are skin ernesto in a vertical midline incision. There is gas within the colon. No dilated gas-filled small bowel. No evidence for mechanical small bowel obstruction. IMPRESSION: 1. Status post open cholecystectomy 2. Bowel gas pattern is unremarkable. No evidence for mechanical small bowel obstruction Interpreted and Authenticated by: Alonzo Alejandra 02/20/22
--- NOTE | 2022-02-20 08:15 | XRay Report ---
INDICATION: Shortness of breath TECHNIQUE: AP portable semiupright chest x-ray COMPARISON: Previous examination dated 02/15/2022 FINDINGS:Suboptimal chest x-ray due to AP semiupright positioning and portable technique Lungs:Asymmetric left lung infiltrates. Findings could be due to asymmetric pulmonary edema but the [id number] asymmetry is suggestive of left sided pneumonia. Aspiration pneumonia is possible Heart, vascular:There is cardiomegaly, unchanged. Mediastinum, nathan:No mediastinal widening. No hilar mass Pleura:Possible left pleural fluid. Skeletal:Negative. IMPRESSION: 1. Acute left-sided infiltrates consistent with pneumonia. 2. Aspiration pneumonia is possible Interpreted and Authenticated by: Alonzo Alejandra 02/20/22
[2022-02-20] MEDS ORDERED: IOPAMIDOL 100 ML BOTTLE IV ONE (08:16)
--- NOTE | 2022-02-20 08:28 | Internal Medicine Consult Note ---
HPI Date of Consult Consult Date: 02/20/22 Primary Care Provider: Alonzo Yee DO Consult Narrative Patient Information: Note initiated : 02/20/22 at 8:26 am Service Date, if different from initiated Date: [] Patient: Jonas Noble 71 y/o M admitted on 02/18/22 for bowel obstruction. Chief Complaint: [] Reason for consult: tachycardia, tachypnea cc:: CC: Dominguez Stephens MD Patient is a 71 years old gentleman history of essential hypertensions, chronic kidney disease stage III, BPH, presenting with postprandial abdominal pain on February 15, 2022. CT of the abdomen at admission showing dilated common bile duct and intrahepatic ducts with a 6 mm distal common bile duct stone. He also has multiple stones in the gallbladder. Emergent ERCP was performed general surgeon Dr. Stephens performed laparoscopic converted to open cholecystectomy on Monday, February 18, 2022. Patient is tolerated the surgery relatively okay. This morning at shift change around 7 AM, patient was found by his nurse to be tachycardic and tachypneic with rate of breathing and heart rate in the 30s and 140s, respectively. Patient is also showing labored breathing. Rapid response was called and patient was transferred to PCU for higher level of care. Patient is currently is complaining of increased shortness of breath. Abdominal pain is being adequately controlled with IV Tylenol and Dilaudid. Emergent chest x- ray showing acute left-sided infiltrates consistent with pneumonia. Abdominal CT showing bowel gas pattern unremarkable. And no evidence of mechanical small bowel obstructions. CT angiogram chest and abdomen pending at the moment. Constitutional Constitutional: Absent chills, excessive sweating, fatigue, fever(s) or weakness EENT Eyes: Absent blurry vision, change in vision, loss of vision or other visual disturbances Ears: Absent decreased hearing or tinnitus Nose, mouth and throat: Absent abnormal hearing, dry mouth, headache(s), nasal congestion or sore throat Cardiovascular Cardiovascular: Absent chest pain, chest pain at rest, edema, irregular heart rhythm or palpatations Respiratory Respiratory: Present dyspnea; Absent cough or wheezing Gastrointestinal Gastrointestinal: Absent abdominal pain, constipation, diarrhea, nausea or vomiting Musculoskeletal Musculoskeletal: Absent back pain, deformity, limited range of motion, muscle cramps, muscle weakness or numbness Integumentary Integumentary: Absent lesions, rash or wounds Neurological Neurological: Absent focal weakness, headache(s) or numbness Psychiatric Psychiatric: Absent anxiety, depression or hallucinations PFSH PFSH All Active Problems (Updated 02/20/22 @ 08:37 by Jayant Rai MD) Acute respiratory failure with hypoxia (Acute) Pneumonia involving left lung (Acute) Stage 1 acute kidney injury (Acute) Postoperative haemorrhage (Acute) Intercostal muscle strain (Acute) Cholelithiasis with choledocholithiasis (Acute) Overactive bladder (Acute) Leg pain, left (Chronic) Post-op pain (Chronic) Hyponatremia (Chronic) Metabolic acidosis (Chronic) Hypokalemia (Chronic) Gastroenteritis (Chronic) Benign hypertension with CKD (chronic kidney disease) stage III (Chronic) Pruritic erythematous rash (Chronic) URI (upper respiratory infection) (Chronic) COVID-19 (Chronic) Pneumonia (Chronic) Essential hypertension (Chronic) Calculus of kidney (Chronic) Knee swelling (Chronic) Suprapatellar effusion of knee (Chronic) Pulled hamstring (Chronic) Abdominal pain (Chronic) Bronchitis (Chronic) Pneumonia (Chronic) Thoracolumbar back pain (Chronic) BPH w urinary obs/LUTS (Acute) Peripheral neuropathy (Acute) Flank pain (Acute) Acute renal failure (ARF) (Acute) Benign essential HTN (Acute) Medical History Abdominal pain Benign hypertension with CKD (chronic kidney disease) stage III Baseline creatinine clearance 45 to 50 cc/min with a bland urinalysis Blood pressure goal 130 over Bronchitis Calculus of kidney Repeat U/S but urine benign COVID-19 Essential hypertension Controlled with valsartan 320 mg at bedtime => now discontinued No longer requiring amlodipine or thiazide Gastroenteritis Hypokalemia GI losses from Salmonella enteritis Hyponatremia Thought to be related to hydrochlorothiazide Knee swelling Leg pain, left Metabolic acidosis Pneumonia Post-op pain Pruritic erythematous rash Pulled hamstring Suprapatellar effusion of knee Thoracolumbar back pain URI (upper respiratory infection) Surgical History History of knee replacement (~2018) Family History Other No pertinent family history Social History marital status: smoking status: Never smoker alcohol intake frequency: does not drink substance use type: does not use MEDS/ALLERGIES Home Medications and Allergies Home Medications Medication Instructions Recorded Confirmed Type triamcinolone acetonide 0.1 % 1 applic topical QDAY 06/11/21 11/16/21 History topical cream Green Tea Fat Burner See Rx Instructions .Route .COMPLEX 10/04/21 11/16/21 History Gut MD See Rx Instructions .Route .COMPLEX 10/04/21 11/16/21 History Joint Restore Gummies See Rx Instructions .Route .COMPLEX 10/04/21 11/16/21 History Liquid Morning Vitamin See Rx Instructions .Route .COMPLEX 10/04/21 11/16/21 History Prostate Advance See Rx Instructions .Route .COMPLEX 10/04/21 11/16/21 History acetaminophen 500 mg tablet 500 mg PO Q6H PRN 10/04/21 11/16/21 History (Tylenol Extra Strength) b 12 See Rx Instructions .Route .COMPLEX 10/04/21 11/16/21 History joint discomfort & inflammation See Rx Instructions .Route .COMPLEX 10/04/21 History foam pramoxine 1 % lotion (Sarna 1 applic topical BID 10/04/21 11/16/21 History Sensitive) stinging nettle root See Rx Instructions .Route .COMPLEX 10/04/21 11/16/21 History diclofenac sodium 1 % topical gel 2 g topical QID PRN 10/18/21 11/16/21 History (Arthritis Pain (diclofenac)) amlodipine 10 mg tablet 10 mg PO QDAY 11/16/21 11/16/21 History gabapentin 300 mg capsule 300 mg PO QHS #90 caps 11/16/21 11/16/21 Rx oxybutynin chloride 5 mg tablet 5 mg PO QHS PRN bladder spasms #90 11/16/21 11/16/21 Rx tabs finasteride 5 mg tablet 5 mg PO QDAY #30 tabs 11/17/21 Rx tamsulosin 0.4 mg capsule 0.8 mg PO QDAY #60 caps 11/17/21 Rx Allergies Allergy/AdvReac Type Severity Reaction Status Date / Time No Known Drug Allergies Allergy Verified 02/15/22 20:20 EXAM Constitutional Vitals: Temp Pulse Resp BP Pulse Ox O2 Del Method O2 Flow Rate 37.0 C 120 H 30 H 159/82 90 2 02/20/22 07:42 02/20/22 04:00 02/20/22 07:42 02/20/22 07:42 02/20/22 07:42 02/20/22 07:42 02/20/22 07:42 General appearance: cooperative and moderate distress Head Head exam: Present atraumatic and normocephalic Eye Eye exam: Present EOMI and PERRL ENT ENT exam: Present mucous membranes moist, normal exam and normal external ear exam Additional comments: Oxymask in place Neck Neck exam: Present normal inspection; Absent lymphadenopathy, tenderness or thyromegaly Respiratory Respiratory exam: Present decreased breath sounds and respiratory distress; Absent accessory muscle use or wheezes Additional comments: tachypnea Cardiovascular Cardiovascular exam: Present tachycardia; Absent JVD GI/Abdominal GI/Abdominal exam: Present normal bowel sounds, distended, firm and tenderness; Absent organomegaly Additional comments: Open ventral abdomen surgical incision covered by surgical dressing TREVER drain RUQ Rectal Rectal exam: Present deferred Extremities Exam Extremities exam: Present full ROM, normal capillary refill and normal inspection; Absent tenderness Neurological Exam Neurological exam: Present alert, CN II-XII intact and oriented X3; Absent motor sensory deficit Psychiatric Psychiatric exam: Present normal affect and normal mood; Absent anxious or depressed Skin Skin exam: Present dry and intact DATA Data Completed and Pending Labs: Labs from last 24 hours 02/20/22 02/20/22 02/20/22 07:32 05:48 05:48 WBC 18.0 H RBC 4.39 L Hgb 12.8 L Hct 39.4 L MCV 89.7 MCH 29.2 MCHC 32.5 RDW 14.8 H Plt Count 270 MPV 9.5 Immature Gran % (Auto) 0.5 Neut % (Auto) 84.4 H Lymph % (Auto) 5.9 L [place] % (Auto) 8.8 Eos % (Auto) 0.1 Baso % (Auto) 0.3 Lymph # (Auto) 1.06 L [place] # (Auto) 1.58 H Eos # (Auto) 0.01 Baso # (Auto) 0.05 Immature Gran # 0.09 H Absolute Neutrophils 15.18 H Sodium 134 Potassium 4.1 Chloride 105 Carbon Dioxide 20 L Anion Gap 9.0 BUN 23 Creatinine 1.5 H GFR Calculation 45 Glucose 149 H Uric Acid 5.5 Calcium 8.3 L Phosphorus 3.1 Magnesium 2.1 Total Bilirubin 1.8 H Direct Bilirubin 1.0 H GGT 233 H AST 53 H ALT 131 H Alkaline Phosphatase 137 H Lactate Dehydrogenase 258 H Total Protein 6.5 Albumin 3.2 Globulin 3.3 Albumin/Globulin Ratio 1.0 Triglycerides 160 H POC Troponin I < 0.02 02/19/22 02/19/22 17:56 12:18 WBC 17.8 H RBC 4.27 L Hgb 12.2 L 13.1 L Hct 35.1 L 38.4 L MCV 89.9 MCH 30.7 MCHC 34.1 RDW 15.0 H Plt Count 237 MPV 9.5 Immature Gran % (Auto) 0.5 Neut % (Auto) 77.2 Lymph % (Auto) 11.4 L [place] % (Auto) 10.8 Eos % (Auto) 0 Baso % (Auto) 0.1 Lymph # (Auto) 2.03 [place] # (Auto) 1.92 H Eos # (Auto) 0 Baso # (Auto) 0.02 Immature Gran # 0.09 H Absolute Neutrophils 13.70 H Sodium Potassium Chloride Carbon Dioxide Anion Gap BUN Creatinine GFR Calculation Glucose Uric Acid Calcium Phosphorus Magnesium Total Bilirubin Direct Bilirubin GGT AST ALT Alkaline Phosphatase Lactate Dehydrogenase Total Protein Albumin Globulin Albumin/Globulin Ratio Triglycerides POC Troponin I A/P Assessment and plan (1) Cholelithiasis with choledocholithiasis: Status: Acute (2) Benign hypertension with CKD (chronic kidney disease) stage III: Status: Chronic Comment: Baseline creatinine clearance 45 to 50 cc/min with a bland urinalysis Blood pressure goal 130 over (3) Stage 1 acute kidney injury: Status: Acute (4) Pneumonia involving left lung: Status: Acute (5) BPH w urinary obs/LUTS: Status: Acute (6) Acute respiratory failure with hypoxia: Status: Acute Narrative A/P Narrative: Assessment and Plans: 1. Acute respiratory failure, post operative: DDx: pulmonary embolism, atelectasis, pneumonia, ACS Transfer to inpatient PCU CXR showing left sided infiltrates suggestive of pneumonia CT angiogram chest and abdomen to rule out pulmonary embolism Patient should be started on anticoagulation, should be at least PPX dose if no PE, full dose if PE present Supplemental oxygen Incentive spirometry Pain control with IV Tylenol and Dilaudid Early emulation if and when possible Blood culture Lactic acid Serial troponin Daily cbc w/ diff to trend WBC 12-lead ECG only showing sinus tachycardia Zosyn 2. Cholelithiasis and choledocholithiasis: s/p laparoscopy converted to open cholecystectomy Incentive spirometry Pain control with IV Tylenol and Dilaudid Early emulation if and when possible Abdominal X ray does not reveal bowel obstruction Full liquid diet Post surgical care as per primary team 3. Essential HTN: Amlodipine Hydralazine IV PRN elevated blood pressure 4. BPH: Finasteride Tamsulosin 5. Stage 1 acute kidney injury with chronic kidney disease III: Avoid nephrotoxic agents NS@100cc/hr Daily CMP to trend kidney functions Thank you for the consultation, will continue to follow Time Spent With Patient Time: Total time spent is greater than 50% in coordination of care (as documented) at patient's floor/unit and/or counseling patient: Total time spent with greater than 50% in coordination of care (as documented) at patient's floor/unit and/or counseling patient:: 50 - 70 minutes
--- NOTE | 2022-02-20 09:06 | Cat Scan Report ---
INDICATION: abdominal distention/pain COMPARISON: Chest x-ray dated 02/20/2022. Abdominal and pelvic CT scan dated 02/15/2022 TECHNIQUE: Axial images were obtained through the chest,abdomen and pelvis. Sagittally and coronally reformatted images. 90ml Isovue 370 injected intravenously. Oral contrast material was not administered FINDINGS: Chest CT: Lungs:There are bilateral lower lobe infiltrates consistent with pneumonia. Aspiration pneumonia is possible. Mediastinum:No pathologic mediastinal adenopathy. No hilar mass. Thoracic aorta is normal without aneurysmal dilatation Main pulmonary artery, right pulmonary artery, left pulmonary artery are negative. No intraluminal filling defects. No lobar, segmental, or subsegmental emboli. There is an esophagogastric tube with in the esophagus. The esophageal wall appears diffusely thickened without focal mass. There is no intramural gas. Follow-up barium study or endoscopy recommended. The trachea is thin and crescent shaped. 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 Heart:No significant cardiomegaly. No pericardial effusion. No significant reflux of contrast material into the inferior vena cava or hepatic veins Pleura:There are small pleural effusions Axilla, supraclavicular regions, chest wall:No pathologic axillary or supraclavicular adenopathy Musculoskeletal:Negative thoracic spine. No compression fractures. No lytic lesions. No paraspinal mass Abdomen/Pelvis: Liver:Negative liver. No focal intrahepatic mass. Liver contour is smooth. Gallbladder, bilary:Status post open cholecystectomy. There are surgical clips in the gallbladder fossa. There is a surgical drain present. No dilated bile ducts. Spleen:No splenomegaly. No focal intrasplenic abnormality. Normal enhancement of splenic and portal veins. Pancreas:No pancreatic mass. No peripancreatic abnormality Adrenal glands:Negative Kidneys,ureters,bladder:Kidneys are atrophic. There is heterogeneous perfusion to the left kidney. Clinical correlation for pyelonephritis and possible lobar nephronia recommended. There is no perinephric abnormality. There is no hydronephrosis. No hydroureter. No ureteral calculus. No bladder stone. No detectable bladder mass. Bladder is mildly distended Gastrointestinal:No detectable colonic mass. There is no diverticulitis. Negative small bowel. No mechanical small bowel obstruction. No bowel wall thickening. No focal abnormality. Dilated gas-filled segment of small bowel is improved Negative stomach and duodenum. No focal abnormality. Appendix: The appendix is nonvisualized. No evidence for appendicitis Vascular: - Abdominal aorta is negative. There is no abdominal aortic aneurysm. - Celiac trunk is normal. There is no stenosis or thrombosis - Superior mesenteric artery is normal. No stenosis or thrombosis. - Inferior mesenteric artery is normal - Negative renal arteries. There is minimal calcification at the origin of the left renal artery. There is no stenosis. Renal veins are patent - Common iliac arteries, external iliac arteries, common femoral arteries are normal Inferior vena cava is small. Clinical correlation for hypotension recommended Lymphatic:No pathologic retroperitoneal or mesenteric adenopathy Mesentery, peritoneum:Minimal perihepatic and perisplenic fluid. This is probably postsurgical. There is minimal postsurgical pneumoperitoneum There are 2 round densities anteriorly located with in the abdomen. This patient underwent surgical small bowel repair and these probably represent omental hematomas. These measure 4.4 x 3.7 x 3.9 cm and 4.0 x 5.0 x 6.5 cm Reproductive:Prostate is not significantly enlarged Musculoskeletal:No compression fractures. No lytic lesions. Sacrum, pelvis, hips are negative. There is subcutaneous gas secondary to prior open cholecystectomy. There are anterior skin ernesto IMPRESSION: 1. Negative pulmonary CTA. No pulmonary embolism 2. Bilateral lower lobe infiltrates may be consistent with pneumonia. Aspiration pneumonia is possible 3. Esophagogastric tube within the esophagus. Diffuse esophageal wall thickening without a focal mass. Recommend endoscopy or barium study when appropriate 4. 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 Negative abdominal and pelvic CTA. Renal veins are patent 6. Surgical clips and drains in the gallbladder fossa. No focal fluid collection 7. Probable omental hematomas 8. Mild perihepatic and perisplenic fluid. Mild pneumoperitoneum. These are expected postsurgical findings 9. Abnormal kidneys. Left pyelonephritis and possible lobar nephronia are possible. Clinical correlation necessary 10. Small inferior vena cava. Clinical correlation for hypotension recommended The exam was performed using radiation dose optimization techniques including, but not limited to, automated exposure control, adjustment of the mA and/or kV according to patient size and use of iterative reconstruction technique. Interpreted and Authenticated by: Alonzo Alejandra 02/20/22
--- NOTE | 2022-02-20 09:39 | General Surgery Progress Note ---
SUBJECTIVE Subjective Patient information: Note initiated : 02/20/22 at 9:28 am Service Date, if different from initiated Date: [] Patient: Jonas Noble 71 y/o M admitted on 02/18/22 for bowel obstruction. Chief Complaint: [] Interval history: I was contacted about 0700 the patient was undergoing a rapid response evaluation. The concern was increased shortness of breath with mild hypoxemia and tachycardia with heart rate in the 140s. When seen the patient was lying in bed with tachypnea of about 40 breaths/min. Vitals revealed blood pressure of 190/117 and heart rate sinus tachycardia 144. Patient complains primarily of abdominal pain and shortness of breath. Evaluation did not reveal anything acute except for increased rhonchi and rales in both lung avendaño with splinting bilaterally. His abdomen was tightly distended but he had active bowel sounds. Lower extremities did not reveal any edema and he did not have any venous cords in his legs. The patient received Apresoline IV and his blood pressure came down to the 180 range. He was sent to CT for CTA of chest abdomen pelvis. The CTA of the chest shows bilateral posterior lateral atelectasis with developing pneumonia. There was no evidence of central or segmental pulmonary emboli. Abdomen showed some dilated loops of small bowel but no increased fluid and no evidence of any significant free air except for that which would be expected after open procedure. There were 2 areas of consolidation. Contained and probably represents hematoma of the omentum. There was no fluid in the pelvis. The patient is transferred to ICU and will be monitored accordingly. Hospitalist has been consulted for assist with treatment. Constitutional Vitals: Vital Signs Temp Pulse Resp BP Pulse Ox O2 Del Method O2 Flow Rate 98.6 F 120 H 30 H 159/82 90 2 02/20/22 07:42 02/20/22 04:00 02/20/22 07:42 02/20/22 07:42 02/20/22 07:42 02/20/22 07:42 02/20/22 07:42 Period Temp Pulse Resp BP Sys/Maza Pulse Ox O2 Del Method O2 Flow Rate Last 24 Hr 97.7 F-98.6 F 90-120 12-30 139-161/71-104 90-96 Nasal Cannula- Room Air 2-2 Intake and Output 02/19/22 02/20/22 02/20/22 21:59 05:59 13:59 Intake Total 1350 1342 50 Output Total 580 305 Balance 770 1037 50 Weight 293 lb 3.2 oz Intake & Output: Intake & Output 02/19/22 02/20/22 02/20/22 21:59 05:59 13:59 Intake Total 1350 1342 50 Output Total 580 305 Balance 770 1037 50 Weight 293 lb 3.2 oz Intake: IV 150 1142 50 Sodium Chloride 0.9% 1,000 ml @ 992 100 mls/hr IV .Q10H RODRIGUE Rx#: [id number] Zosyn 3.375 gm In Dextrose 5% 50 50 50 in Water 50 ml @ 100 mls/hr IV Q6H RODRIGUE Rx#:[id number] Oral 1200 200 Output: Drainage 30 105 Right Abdomen 30 105 Urine Catheter Amount 200 Void Amount 550 Other: Meal Dinner Percent of Meal Consumed 100% Feeding Ability Independent Urine Appearance Clear Urine Color Yellow Urine Odor Normal Head Head exam: Present atraumatic, normal inspection and normocephalic Eye Eye exam: Present EOMI and PERRL Pupils: Present normal accommodation ENT ENT exam: Present normal exam and normal oropharynx Neck Neck exam: Present full ROM and normal inspection Additional comments: No jugular venous distention noted Respiratory Additional comments: Rapid respiratory rate in the 40s Bilateral accessory muscle use Coarse tubular breath sounds and rales bilaterally with coarse wheezes Cardiovascular Cardiovascular exam: Absent JVD Additional comments: Resting tachycardia with heart rate 146 No murmur GI/Abdominal Additional comments: Active bowel sounds but tensely distended tender abdomen Incision looks unremarkable without any significant bleeding and no other drainage noted Intra-abdominal drain has old blood without any bilious content Extremities Exam Extremities exam: Present full ROM, normal inspection and neurovascular intact; Absent calf tenderness, pedal edema or Ricky's sign Neurological Exam Neurological exam: Present oriented X3 and reflexes normal; Absent motor sensory deficit Psychiatric Psychiatric exam: Present agitated, anxious, normal affect and normal mood Skin Skin exam: Present normal color; Absent cyanosis A/P Assessment and plan (1) Acute respiratory failure with hypoxia: Status: Acute (2) Pneumonia involving left lung: Status: Acute (3) Postoperative haemorrhage: Status: Acute (4) Cholelithiasis with choledocholithiasis: Status: Acute (5) Essential hypertension: Status: Chronic Comment: Controlled with valsartan 320 mg at bedtime => now discontinued No longer requiring amlodipine or thiazide Plan Transfer to ICU continue treatment Follow-up recommendation of hospitalist care Continue antibiotics Increased respiratory support as needed Repeat chest x-ray in the morning Nasogastric decompression of GI tract Time Spent With Patient Time: Total time spent is greater than 50% in coordination of care (as documented) at patient's floor/unit and/or counseling patient:
[2022-02-20] MEDS: LEVALBUTEROL 1.25 MG/3 ML AMPUL.NEB NEB SCH ×4 (09:53→22:42)
[2022-02-20] MEDS: METOPROLOL TARTRATE 5 MG/5 ML VIAL IV PRN (10:01)
[2022-02-20] MEDS: FINASTERIDE 5 MG TABLET PO SCH (11:50)
[2022-02-20] MEDS: amLODIPine 10 MG TABLET PO SCH (11:50)
[2022-02-20] MEDS: TAMSULOSIN 0.4 MG CAPSULE PO SCH (11:50)
[2022-02-20] MEDS: PANTOPRAZOLE 40 MG VIAL IV SCH (11:55)
--- NOTE | 2022-02-20 17:26 | XRay Report ---
INDICATION: NGT placement verification TECHNIQUE: Supine abdomen. COMPARISON: Previous examination dated 02/20/2022 FINDINGS:Esophagogastric tube with its tip in the left upper quadrant. The sidehole of the catheter is at the level of the gastroesophageal junction. Advancement of the tube is recommended IMPRESSION: Esophagogastric tube in the proximal stomach Interpreted and Authenticated by: Alonzo Alejandra 02/20/22
--- NOTE | 2022-02-20 20:59 | EKG ---
Former[facility] Test Date: 2022-02-20 Pat Name: Jonas Noble [facility] Room: 108 Gender: Male Cardiac Cath Lab Manager: : [id number] Requested By: Dominguez Stephens Order Number: [id number] Reading MD: Krishna Rios Measurements Intervals [place] Rate: 142 P: 30 NM: 143 QRS: 70 QRSD: 93 T: 28 QT: 343 QTc: 527 Interpretive Statements Sinus tachycardia Probable left atrial enlargement Prolonged QT interval Baseline wander in lead(s) V2,V3,V4,V5,V6 Electronically Signed On 02-20-2022 20:59:01 PDT by Krishna Rios /store/M0/[id number]
[2022-02-20] MEDS ORDERED: OXYBUTYNIN CHLORIDE 5 MG TABLET PO PRN (21:00)
[2022-02-21] MEDS: ACETAMINOPHEN 1,000 MG/100 ML BAG IV SCH ×4 (00:18→18:41)
[2022-02-21] MEDS: 0.9 % SODIUM CHLORIDE 1,000 ML IV SCH ×3 (04:26→16:44)
[2022-02-21] MEDS: HYDROmorphone 1 MG/ML SYRINGE IV PRN ×2 (04:26→18:40)
[2022-02-21] MEDS: LEVALBUTEROL 1.25 MG/3 ML AMPUL.NEB NEB SCH ×3 (04:27→11:40)
[2022-02-21] MEDS: PIPERACILLIN SODIUM/TAZOBACTAM 3.375 GM in DEXTROSE 5% IN WATER 50 ML IV SCH ×4 (05:17→23:29)
[2022-02-21] MEDS: METOCLOPRAMIDE 10 MG/2 ML VIAL IV SCH ×4 (05:17→23:29)
[2022-02-21] MEDS: METOPROLOL TARTRATE 5 MG/5 ML VIAL IV PRN ×2 (05:17→14:50)
[2022-02-21 07:06] LABS: Basophils # (Auto) 0.02 K/mcL (0.00-0.30); Basophils % (Auto) 0.1 % (0.0-2.0); Eosinophils # (Auto) 0 K/mcL (0.00-0.70); Eosinophils % (Auto) 0 % (0.0-7.0); Hematocrit 35.6 % (40.1-51.0); Hemoglobin 11.4 g/dL (13.7-17.5); Lymphocytes % (Auto) 8.7 % (15.5-49.0); Mean Cell Volume 90.1 fL (80.0-100.0); Mean Platelet Volume 10.1 fL (8.8-12.5); Monocytes # (Auto) 1.04 K/mcL (0.10-0.90); Monocytes % (Auto) 7.5 % (1.0-12.0); Neutrophils % (Auto) 83.2 % (38.0-78.0); Platelet Count 247 K/mcL (140-440); RBC 3.95 M/mcL (4.63-6.08); WBC 13.8 K/mcL (4.5-11.0)
[2022-02-21] MEDS: PANTOPRAZOLE 40 MG VIAL IV SCH (07:20)
[2022-02-21 07:30] LABS: ALT/SGPT 88 U/L (<40); AST/SGOT 37 U/L (<40); Albumin/Globulin Ratio 1.3 (1.0-2.3); Alkaline Phosphatase 102 U/L (39-117); Bilirubin,Direct 1.1 mg/dL (<0.3); Blood Urea Nitrogen 27 mg/dL (8-23); Calcium 7.8 mg/dL (8.6-10.4); Carbon Dioxide 17 mmol/L (22-30); Chloride 109 mmol/L (96-108); Globulin 2.3 gm/dL (2.2-3.7); Glomerular Filtration Rate 26; Glucose 140 mg/dL (70-105); Lactate Dehydrogenase 302 U/L (135-225); Phosphorous 3.6 mg/dL (2.5-4.5); Triglycerides 112 mg/dL (<150); Uric Acid 6.6 mg/dL (2.5-8.0)
--- NOTE | 2022-02-21 09:18 | Internal Med Progress Note ---
SUBJECTIVE Subjective Patient information: Note initiated : 02/21/22 at 9:16 am Service Date, if different from initiated Date: [] Patient: Jonas Noble 71 y/o M admitted on 02/18/22 for bowel obstruction. Chief Complaint: [] Interval history: Patient is a 71 years old gentleman history of essential hypertensions, chronic kidney disease stage III, BPH, presenting with postprandial abdominal pain on February 15, 2022. CT of the abdomen at admission showing dilated common bile duct and intrahepatic ducts with a 6 mm distal common bile duct stone. He also has multiple stones in the gallbladder. Emergent ERCP was performed general surgeon Dr. Stephens performed laparoscopic converted to open cholecystectomy on Friday, February 18, 2022. Patient is tolerated the surgery relatively okay. This morning at shift change around 7 AM, patient was found by his nurse to be tachycardic and tachypneic with rate of breathing and heart rate in the 30s and 140s, respectively. Patient is also showing labored breathing. Rapid response was called and patient was transferred to PCU for higher level of care. Patient is currently is complaining of increased shortness of breath. Abdominal pain is being adequately controlled with IV Tylenol and Dilaudid. Emergent chest x- ray showing acute left-sided infiltrates consistent with pneumonia. Abdominal CT showing bowel gas pattern unremarkable. And no evidence of mechanical small bowel obstructions. CT angiogram chest and abdomen pending at the moment. 02/21: CTA chest: negative of PE, but shows bilateral lung bases infiltrates suggestive of pneumonia. Afebrile overnight. Patient is currently on 1.5-2L/min nasal cannula oxygen. Cultures no growth to date. WBC down trended 17.8-->13.8. Serum Cr worsen from 1.5-->2.4. Patient is complaining of 3 out of 10 abdominal pain. He is having much improved degree of shortness of breath. He denies any cough or wheezing. He denies any fever, chills, or diaphoresis. He denies any nausea or vomiting. NG tube still in place. The patient still currently on n.p.o. status. Patient has not passed any bowel movement yet. Continue Zosyn while monitoring culture results. Repeat chest x-ray today. Continue IV fluid, avoid nephrotoxic agents, and repeat CMP in the morning to trend kidney functions. Rest of the surgical management as per primary team. Constitutional Vitals: Vital Signs Temp Pulse Resp BP Pulse Ox O2 Del Method O2 Flow Rate 36.7 C 105 H 24 H 124/63 95 2 02/21/22 08:01 02/21/22 08:01 02/21/22 08:01 02/21/22 08:01 02/21/22 08:01 02/21/22 08:01 02/21/22 08:01 Period Temp Pulse Resp BP Sys/Maza Pulse Ox O2 Del Method O2 Flow Rate Last 24 Hr 36.4 C-37.7 C 101-135 16-27 107-150/56-90 91-98 Oxymask-Room Air 2-4 Intake and Output 02/20/22 02/21/22 02/21/22 21:59 05:59 13:59 Intake Total 250 1150 150 Output Total 425 1255 200 Balance -175 -105 -50 Weight 132.585 kg Intake & Output: Intake & Output 02/20/22 02/21/22 02/21/22 21:59 05:59 13:59 Intake Total 250 1150 150 Output Total 425 1255 200 Balance -175 -105 -50 Weight 132.585 kg Intake: IV 250 1150 150 Sodium Chloride 0.9% 1,000 ml @ 1000 100 mls/hr IV .Q10H [facility] Rx#: [id number] Zosyn 3.375 gm In Dextrose 5% 50 50 50 in Water 50 ml @ 100 mls/hr IV Q6H [facility] Rx#:[id number] Oral 0 Output: Gastric Drainage 750 Right Nare NG/OG 750 Drainage 30 Right Abdomen 30 Void Amount 425 475 200 Other: Urine Appearance Clear Clear Clear Urine Color Tea Colored Tea Colored Tea Colored Urine Odor Sweet Normal Normal Head Head exam: Present atraumatic and normal inspection Eye Eye exam: Present normal appearance ENT ENT exam: Present mucous membranes moist, normal exam and normal external ear exam Additional comments: Nasal cannula in place Neck Neck exam: Present normal inspection Respiratory Respiratory exam: Present normal respiratory exam Cardiovascular Cardiovascular exam: Present normal rate and rhythm GI/Abdominal GI/Abdominal exam: Present diminished bowel sounds and tenderness Additional comments: TREVER drain X1 RUQ Ventral abdominal surgical incision covered by surgical dressing Back Exam Back exam: Present normal inspection Neurological Exam Neurological exam: Present alert and oriented X3 Skin Skin exam: Present intact and warm OBJ DATA Labs CBC & Chem 7: 02/21/22 05:14 02/21/22 05:14 Labs: Abnormal Lab Results 02/21/22 02/21/22 02/20/22 05:14 05:14 09:50 WBC 13.8 H RBC 3.95 L Hgb 11.4 L Hct 35.6 L RDW 15.0 H Immature Gran % (Auto) Neut % (Auto) 83.2 H Lymph % (Auto) 8.7 L Lymph # (Auto) 1.[address] [place] # (Auto) 1.04 H Immature Gran # 0.07 H Absolute Neutrophils 11.47 H POC pH POC pO2 POC HCO3 POC Total CO2 POC ABG Base Excess ABG Lactic Acid VBG Lactic Acid 3.3 H Hgb O2 Saturation Chloride 109 H Carbon Dioxide 17 L BUN 27 H Creatinine 2.4 H Glucose 140 H Calcium 7.8 L Total Bilirubin 2.0 H Direct Bilirubin 1.1 H GGT 157 H AST ALT 88 H Alkaline Phosphatase Lactate Dehydrogenase 302 H Total Protein 5.3 L Albumin 3.0 L Triglycerides 02/20/22 02/20/22 02/20/22 08:59 05:48 05:48 WBC 18.0 H RBC 4.39 L Hgb 12.8 L Hct 39.4 L RDW 14.8 H Immature Gran % (Auto) Neut % (Auto) 84.4 H Lymph % (Auto) 5.9 L Lymph # (Auto) 1.[address] [place] # (Auto) 1.58 H Immature Gran # 0.09 H Absolute Neutrophils 15.18 H POC pH 7.32 L POC pO2 69 L POC HCO3 18.1 L POC Total CO2 19.0 L POC ABG Base Excess -8.0 L ABG Lactic Acid 2.7 H VBG Lactic Acid Hgb O2 Saturation 92.0 L Chloride Carbon Dioxide 20 L BUN Creatinine 1.5 H Glucose 149 H Calcium 8.3 L Total Bilirubin 1.8 H Direct Bilirubin 1.0 H GGT 233 H AST 53 H ALT 131 H Alkaline Phosphatase 137 H Lactate Dehydrogenase 258 H Total Protein Albumin Triglycerides 160 H 02/19/22 02/19/22 02/19/22 17:56 12:18 06:19 WBC 17.8 H RBC 4.27 L Hgb 12.2 L 13.1 L Hct 35.1 L 38.4 L RDW 15.0 H Immature Gran % (Auto) Neut % (Auto) Lymph % (Auto) 11.4 L Lymph # (Auto) [place] # (Auto) 1.92 H Immature Gran # 0.09 H Absolute Neutrophils 13.70 H POC pH POC pO2 POC HCO3 POC Total CO2 POC ABG Base Excess ABG Lactic Acid VBG Lactic Acid Hgb O2 Saturation Chloride Carbon Dioxide 18 L BUN Creatinine Glucose 172 H Calcium 8.1 L Total Bilirubin 1.8 H Direct Bilirubin 0.9 H GGT 290 H AST 79 H ALT 170 H Alkaline Phosphatase 160 H Lactate Dehydrogenase Total Protein Albumin 3.1 L Triglycerides 163 H 02/19/22 06:19 WBC 16.0 H RBC 4.27 L Hgb 12.9 L Hct 37.9 L RDW 14.8 H Immature Gran % (Auto) 0.6 H Neut % (Auto) 81.9 H Lymph % (Auto) 9.8 L Lymph # (Auto) [place] # (Auto) 1.22 H Immature Gran # 0.10 H Absolute Neutrophils 13.10 H POC pH POC pO2 POC HCO3 POC Total CO2 POC ABG Base Excess ABG Lactic Acid VBG Lactic Acid Hgb O2 Saturation Chloride Carbon Dioxide BUN Creatinine Glucose Calcium Total Bilirubin Direct Bilirubin GGT AST ALT Alkaline Phosphatase Lactate Dehydrogenase Total Protein Albumin Triglycerides Meds: Medications Alprazolam (Alprazolam 0.5 Mg Tablet) 1 mg PO HSP PRN PRN Reason: Insomnia Last Admin: 02/19/22 23:54 Dose: 1 mg Amlodipine Besylate (Amlodipine 10 Mg Tablet) 10 mg PO QDAY [facility] Last Admin: 02/20/22 11:50 Dose: Not Given Finasteride (Finasteride 5 Mg Tablet) 5 mg PO QDAY [facility] Last Admin: 02/20/22 11:50 Dose: Not Given Glucagon (Glucagon,Human Recombinant 1 Mg Vial) 1 mg IV ONCE PRN PRN Reason: Spasms Hydralazine HCl (Hydralazine 20 Mg/Ml Vial) 20 mg IV Q4HP PRN PRN Reason: Hypertension Last Admin: 02/20/22 07:31 Dose: 20 mg Hydromorphone HCl (Hydromorphone 1 Mg/Ml Syringe) 0 mg IV Q2HP PRN; Protocol PRN Reason: Per Pain Protocol Last Admin: 02/21/22 04:26 Dose: 2 mg Piperacillin Sod/Tazobactam (Sod 3.375 gm/ Dextrose) 50 mls @ 100 mls/hr IV Q6H [facility]; Protocol Last Infusion: 02/21/22 06:52 Dose: Infused Sodium Chloride (Sodium Chloride 0.9%) 1,000 mls @ 100 mls/hr IV .Q10H [facility] Last Admin: 02/21/22 07:21 Dose: Not Given Acetaminophen (Ofirmev) 1,000 mg in 100 mls @ 200 mls/hr IV Q6H [facility]; Protocol Last Infusion: 02/21/22 07:20 Dose: Infused Levalbuterol HCl (Levalbuterol 1.25 Mg/3 Ml Ampul.Neb) 1.25 mg NEB Q4HRT [facility] Last Admin: 02/21/22 06:30 Dose: Not Given Lorazepam (Lorazepam 2 Mg/Ml Vial) 1 mg IV Q4-6HP PRN PRN Reason: ANXIETY/SEDATION Metoclopramide HCl (Metoclopramide 10 Mg/2 Ml Vial) 10 mg IV Q6 [facility] Last Admin: 02/21/22 05:17 Dose: 10 mg Metoprolol Tartrate (Metoprolol Tartrate 5 Mg/5 Ml Vial) 5 mg IV Q5M PRN PRN Reason: Tachyarrhythmias Last Admin: 02/21/22 05:17 Dose: 5 mg Oxybutynin Chloride (Oxybutynin Chloride 5 Mg Tablet) 5 mg PO HSP PRN PRN Reason: bladder spasms Pantoprazole Sodium (Pantoprazole 40 Mg Vial) 40 mg IV QAMAC [facility] Last Admin: 02/21/22 07:20 Dose: 40 mg Promethazine HCl (Promethazine 25 Mg/Ml Vial) 12.5 mg IV Q4HP PRN; Protocol PRN Reason: Nausea/Vomiting Last Admin: 02/19/22 21:16 Dose: 12.5 mg Tamsulosin HCl (Tamsulosin 0.4 Mg Capsule) 0.8 mg PO QDAY [facility] Last Admin: 02/20/22 11:50 Dose: Not Given A/P Assessment and plan (1) Cholelithiasis with choledocholithiasis: Status: Acute (2) Benign hypertension with CKD (chronic kidney disease) stage III: Status: Chronic Comment: Baseline creatinine clearance 45 to 50 cc/min with a bland urinalysis Blood pressure goal 130 over (3) Stage 1 acute kidney injury: Status: Acute (4) Pneumonia involving left lung: Status: Acute (5) BPH w urinary obs/LUTS: Status: Acute (6) Acute respiratory failure with hypoxia: Status: Acute Narrative A/P Narrative: Assessment and Plans: 1. Acute respiratory failure, post operative: DDx: pulmonary embolism, atelectasis, pneumonia, ACS Stays ininpatient PCU CXR showing left sided infiltrates suggestive of pneumonia, repeat CXR on 02/21 CT angiogram chest and abdomen: negative for pulmonary embolism, but shows bilateral lung bases infiltrates suggestive of pneumonia Consider DVT ppx when okay by surgeon Supplemental oxygen Incentive spirometry Pain control with IV Tylenol and Dilaudid Early emulation if and when possible Blood culture, no growth to date Lactic acid Serial troponin Daily cbc w/ diff to trend WBC 12-lead ECG only showing sinus tachycardia Zosyn 2. Cholelithiasis and choledocholithiasis: s/p laparoscopy converted to open cholecystectomy Incentive spirometry Pain control with IV Tylenol and Dilaudid Early emulation if and when possible Abdominal X ray does not reveal bowel obstruction Currently NPO status Post surgical care as per primary team 3. Essential HTN: Amlodipine Hydralazine IV PRN elevated blood pressure 4. BPH: Finasteride Tamsulosin 5. Stage 2 acute kidney injury with chronic kidney disease III: Avoid nephrotoxic agents NS@100cc/hr Daily CMP to trend kidney functions Thank you for the consultation, will continue to follow Time Spent With Patient Time: Total time spent is greater than 50% in coordination of care (as documented) at patient's floor/unit and/or counseling patient: Total time spent with greater than 50% in coordination of care (as documented) at patient's floor/unit and/or counseling patient:: 25 - 35 minutes QUALITY VTE Deep Vein Thrombosis/Pulmonary Embolism Present on Admission: No
--- NOTE | 2022-02-21 09:54 | XRay Report ---
CLINICAL INFORMATION: Follow-up left-sided pneumonia COMPARISON: 02/20/2022 TECHNIQUE: Portable FINDINGS: Mild cardiomegaly is accentuated by suboptimal inspiration and lordotic positioning. Mild mediastinal widening is unchanged. Pulmonary vessels are normal. Left mid and lower lung infiltrates have nearly cleared with minimal residual. Tiny left pleural effusion noted. NG extends off the edge of the film at least to the gastric body IMPRESSION: Near-complete clearance of left mid and lower lung infiltrate. Interpreted and Authenticated by: Alonzo Canchola 02/21/22
[2022-02-21] MEDS: IPRATROPIUM/ALBUTEROL 3 ML AMPUL.NEB NEB PRN ×2 (13:50→21:45)
[2022-02-21] MEDS: LORazepam 2 MG/ML VIAL IV PRN ×2 (14:02→23:35)
[2022-02-21] MEDS: amLODIPine 10 MG TABLET PO SCH (15:55)
[2022-02-21] MEDS: TAMSULOSIN 0.4 MG CAPSULE PO SCH (15:55)
[2022-02-21] MEDS: FINASTERIDE 5 MG TABLET PO SCH (15:55)
--- NOTE | 2022-02-21 16:06 | General Surgery Progress Note ---
SUBJECTIVE Subjective Patient information: Note initiated : 02/21/22 at 4:00 pm Service Date, if different from initiated Date: [] Patient: Jonas Noble 71 y/o M admitted on 02/18/22 for bowel obstruction. Chief Complaint: [] Principal diagnosis: postoperative ileus Interval history: Patient states that he feels better. His pain is better controlled. He is breathing much better. He denies chest discomfort. He does complain of fullness in his abdomen. He has not had flatus or bowel movement so for. Drainage through his TREVER is decreasing daily. White blood count 13.8, hemoglobin 11.4, hematocrit 35.6, potassium 3.9, BUN 27, creatinine 2.4, all LFTs are decreasing. Chest x-ray shows clearing of infiltrates. Constitutional Vitals: Vital Signs Temp Pulse Resp BP Pulse Ox O2 Del Method O2 Flow Rate 97.6 F 123 H 27 H 150/61 92 2 02/21/22 12:41 02/21/22 14:15 02/21/22 14:15 02/21/22 14:15 02/21/22 14:15 02/21/22 14:15 02/21/22 10:25 Period Temp Pulse Resp BP Sys/Maza Pulse Ox O2 Del Method O2 Flow Rate Last 24 Hr 97.6 F-99.8 F 103-126 16-38 107-150/56-85 91-97 Oxymask-Room Air 2-2 Intake and Output 02/21/22 02/21/22 02/21/22 05:59 13:59 21:59 Intake Total 1150 200 100 Output Total 1255 600 Balance -105 -400 100 Intake & Output: Intake & Output 02/21/22 02/21/22 02/21/22 05:59 13:59 21:59 Intake Total 1150 200 100 Output Total 1255 600 Balance -105 -400 100 Intake: IV 1150 200 100 Sodium Chloride 0.9% 1,000 ml @ 1000 100 mls/hr IV .Q10H [facility] Rx#: [id number] Zosyn 3.375 gm In Dextrose 5% 50 100 in Water 50 ml @ 100 mls/hr IV Q6H [facility] Rx#:[id number] Oral 0 Output: Gastric Drainage 750 Right Nare NG/OG 750 Drainage 30 Right Abdomen 30 Void Amount 475 600 Other: Urine Appearance Clear Clear Urine Color Tea Colored Tea Colored Urine Odor Normal Normal ENT ENT exam: Present mucous membranes moist and normal oropharynx Neck Neck exam: Present full ROM and normal inspection; Absent tenderness Respiratory Respiratory exam: Present normal respiratory exam Additional comments: Good breath sounds bilaterally Cardiovascular Cardiovascular exam: Present +S1, +S2 and tachycardia (Average heart rate about 110); Absent JVD GI/Abdominal GI/Abdominal exam: Present diminished bowel sounds, distended and tenderness (Mild abdominal tenderness) Extremities Exam Extremities exam: Present normal inspection and neurovascular intact Neurological Exam Neurological exam: Present normal gait and oriented X3 Psychiatric Psychiatric exam: Present anxious A/P Assessment and plan (1) Acute respiratory failure with hypoxia: Status: Acute (2) Pneumonia involving left lung: Status: Acute (3) Stage 1 acute kidney injury: Status: Acute (4) Postoperative haemorrhage: Status: Acute (5) Cholelithiasis with choledocholithiasis: Status: Acute Plan Increase the intravenous infusion 2 view abdominal x-ray in the morning follow-up BUN and creatinine in the morning Time Spent With Patient Time: Total time spent is greater than 50% in coordination of care (as documented) at patient's floor/unit and/or counseling patient:
[2022-02-22] MEDS: ACETAMINOPHEN 1,000 MG/100 ML BAG IV SCH ×4 (00:34→19:26)
[2022-02-22] MEDS: HYDROmorphone 1 MG/ML SYRINGE IV PRN ×5 (03:59→21:37)
[2022-02-22] MEDS: 0.9 % SODIUM CHLORIDE 1,000 ML IV SCH ×3 (04:01→23:49)
[2022-02-22] MEDS: PIPERACILLIN SODIUM/TAZOBACTAM 3.375 GM in DEXTROSE 5% IN WATER 50 ML IV SCH ×3 (05:52→17:21)
[2022-02-22] MEDS: METOCLOPRAMIDE 10 MG/2 ML VIAL IV SCH ×3 (05:52→17:26)
[2022-02-22] MEDS: PANTOPRAZOLE 40 MG VIAL IV SCH (06:57)
[2022-02-22 07:23] LABS: Basophils # (Auto) 0.03 K/mcL (0.00-0.30); Basophils % (Auto) 0.3 % (0.0-2.0); Eosinophils # (Auto) 0.08 K/mcL (0.00-0.70); Eosinophils % (Auto) 0.8 % (0.0-7.0); Hematocrit 30.6 % (40.1-51.0); Hemoglobin 9.9 g/dL (13.7-17.5); Lymphocytes # (Auto) 0.99 K/mcL (1.50-4.80); Lymphocytes % (Auto) 9.6 % (15.5-49.0); Mean Cell Volume 90.5 fL (80.0-100.0); Mean Corpuscular HGB Conc 32.4 g/dL (31.0-36.0); Mean Platelet Volume 10.3 fL (8.8-12.5); Monocytes # (Auto) 0.66 K/mcL (0.10-0.90); Monocytes % (Auto) 6.4 % (1.0-12.0); Neutrophils % (Auto) 82.3 % (38.0-78.0); Platelet Count 234 K/mcL (140-440); RBC 3.38 M/mcL (4.63-6.08); Red Cell Distribution Width 15.2 % (11.5-14.5); WBC 10.3 K/mcL (4.5-11.0)
[2022-02-22 07:39] LABS: ALT/SGPT 60 U/L (<40); AST/SGOT 30 U/L (<40); Albumin 2.6 gm/dL (3.2-5.2); Albumin/Globulin Ratio 0.8 (1.0-2.3); Alkaline Phosphatase 91 U/L (39-117); Bilirubin,Direct 1.1 mg/dL (<0.3); Blood Urea Nitrogen 29 mg/dL (8-23); Calcium 8.1 mg/dL (8.6-10.4); Carbon Dioxide 18 mmol/L (22-30); Chloride 111 mmol/L (96-108); Globulin 3.1 gm/dL (2.2-3.7); Glomerular Filtration Rate 36; Glucose 110 mg/dL (70-105); Lactate Dehydrogenase 269 U/L (135-225); Phosphorous 2.3 mg/dL (2.5-4.5); Triglycerides 133 mg/dL (<150); Uric Acid 6.7 mg/dL (2.5-8.0)
[2022-02-22] MEDS: TAMSULOSIN 0.4 MG CAPSULE PO SCH ×2 (08:17→11:46)
[2022-02-22] MEDS: FINASTERIDE 5 MG TABLET PO SCH ×2 (08:17→11:46)
[2022-02-22] MEDS: amLODIPine 10 MG TABLET PO SCH ×2 (08:17→11:47)
--- NOTE | 2022-02-22 08:38 | Internal Med Progress Note ---
SUBJECTIVE Subjective Patient information: Note initiated : 02/22/22 at 8:36 am Service Date, if different from initiated Date: [] Patient: Jonas Noble 71 y/o M admitted on 02/18/22 for bowel obstruction. Chief Complaint: [] Principal diagnosis: postoperative ileus Interval history: Patient is a 71 years old gentleman history of essential hypertensions, chronic kidney disease stage III, BPH, presenting with postprandial abdominal pain on February 15, 2022. CT of the abdomen at admission showing dilated common bile duct and intrahepatic ducts with a 6 mm distal common bile duct stone. He also has multiple stones in the gallbladder. Emergent ERCP was performed general surgeon Dr. Stephens performed laparoscopic converted to open cholecystectomy on Friday, February 18, 2022. Patient is tolerated the surgery relatively okay. This morning at shift change around 7 AM, patient was found by his nurse to be tachycardic and tachypneic with rate of breathing and heart rate in the 30s and 140s, respectively. Patient is also showing labored breathing. Rapid response was called and patient was transferred to PCU for higher level of care. Patient is currently is complaining of increased shortness of breath. Abdominal pain is being adequately controlled with IV Tylenol and Dilaudid. Emergent chest x- ray showing acute left-sided infiltrates consistent with pneumonia. Abdominal CT showing bowel gas pattern unremarkable. And no evidence of mechanical small bowel obstructions. CT angiogram chest and abdomen pending at the moment. 02/21: CTA chest: negative of PE, but shows bilateral lung bases infiltrates suggestive of pneumonia. Afebrile overnight. Patient is currently on 1.5-2L/min nasal cannula oxygen. Cultures no growth to date. WBC down trended 17.8-->13.8. Serum Cr worsen from 1.5-->2.4. Patient is complaining of 3 out of 10 abdominal pain. He is having much improved degree of shortness of breath. He denies any cough or wheezing. He denies any fever, chills, or diaphoresis. He denies any nausea or vomiting. NG tube still in place. The patient still currently on n.p.o. status. Patient has not passed any bowel movement yet. Continue Zosyn while monitoring culture results. Repeat chest x-ray today. Continue IV fluid, avoid nephrotoxic agents, and repeat CMP in the morning to trend kidney functions. Rest of the surgical management as per primary team. 02/22: Afebrile overnight. Patient is currently on room air. Blood culture no growth today. Repeat chest x-ray from yesterday showing nearly complete improvement of the infiltrates seen from previous exams. Patient's degree of shortness of breath has greatly improved. Denies any chest pain. Denies any coughing or respiratory wheezings. Denies any fever chills or diaphoresis. He is still made n.p.o. status as per general surgeon Dr. Stephens. Continue Zosyn while monitoring culture results. Continue IV fluid, avoid nephrotoxic agents, and repeat CMP in the morning to trend kidney functions. Rest of the surgical management as per primary team. Constitutional Vitals: Vital Signs Temp Pulse Resp BP Pulse Ox O2 Del Method O2 Flow Rate 37.1 C 109 H 23 H 153/68 97 2 02/22/22 08:01 02/22/22 02:01 02/22/22 08:01 02/22/22 08:01 02/22/22 08:01 02/22/22 08:01 02/21/22 10:25 Period Temp Pulse Resp BP Sys/Maza Pulse Ox O2 Del Method O2 Flow Rate Last 24 Hr 36.1 C-37.1 C 104-126 16-38 120-153/57-99 92-98 Oxymask-Room Air 2 Intake and Output 02/21/22 02/22/22 02/22/22 21:59 05:59 13:59 Intake Total 1250 1330 150 Output Total 1240 1090 200 Balance 10 240 -50 Weight 131.587 kg Intake & Output: Intake & Output 02/21/22 02/22/22 02/22/22 21:59 05:59 13:59 Intake Total 1250 1330 150 Output Total 1240 1090 200 Balance 10 240 -50 Weight 131.587 kg Intake: IV 1250 1150 150 Sodium Chloride 0.9% 1,000 ml @ 1000 1000 100 mls/hr IV .Q10H RODRIGUE Rx#: [id number] Zosyn 3.375 gm In Dextrose 5% 50 50 50 in Water 50 ml @ 100 mls/hr IV Q6H RODRIGUE Rx#:[id number] Oral 180 Tube Feeding 0 Output: Gastric Drainage 900 650 Right Nare NG/OG 900 650 Drainage 15 Right Abdomen 15 Drainage 15 Right Abdomen 15 Void Amount 325 425 200 Other: Urine Appearance Clear Clear Clear Urine Color Tea Colored Tea Colored Dark Paige Urine Odor Strong Normal Strong Head Head exam: Present atraumatic and normal inspection Eye Eye exam: Present normal appearance ENT ENT exam: Present mucous membranes moist, normal exam and normal external ear exam Additional comments: NG tube in place Neck Neck exam: Present normal inspection Respiratory Respiratory exam: Present normal respiratory exam Cardiovascular Cardiovascular exam: Present normal rate and rhythm GI/Abdominal GI/Abdominal exam: Present normal bowel sounds Additional comments: TREVER drain X1 RUQ Ventral abdominal surgical incision covered by surgical dressing Back Exam Back exam: Present normal inspection Neurological Exam Neurological exam: Present alert and oriented X3 Skin Skin exam: Present intact and warm OBJ DATA Labs CBC & Chem 7: 02/22/22 05:27 02/22/22 05:27 Labs: Abnormal Lab Results 02/22/22 02/22/22 02/21/22 05:27 05:27 05:14 WBC RBC 3.38 L Hgb 9.9 L Hct 30.6 L RDW 15.2 H Immature Gran % (Auto) 0.6 H Neut % (Auto) 82.3 H Lymph % (Auto) 9.6 L Lymph # (Auto) 0.99 L [place] # (Auto) Immature Gran # 0.06 H Absolute Neutrophils 8.51 H POC pH POC pO2 POC HCO3 POC Total CO2 POC ABG Base Excess ABG Lactic Acid VBG Lactic Acid Hgb O2 Saturation Chloride 111 H 109 H Carbon Dioxide 18 L 17 L BUN 29 H 27 H Creatinine 1.8 H 2.4 H Glucose 110 H 140 H Calcium 8.1 L 7.8 L Phosphorus 2.3 L Total Bilirubin 2.0 H 2.0 H Direct Bilirubin 1.1 H 1.1 H GGT 118 H 157 H AST ALT 60 H 88 H Alkaline Phosphatase Lactate Dehydrogenase 269 H 302 H Total Protein 5.7 L 5.3 L Albumin 2.6 L 3.0 L Albumin/Globulin Ratio 0.8 L Triglycerides 02/21/22 02/20/22 02/20/22 05:14 09:50 08:59 WBC 13.8 H RBC 3.95 L Hgb 11.4 L Hct 35.6 L RDW 15.0 H Immature Gran % (Auto) Neut % (Auto) 83.2 H Lymph % (Auto) 8.7 L Lymph # (Auto) 1.20 L [place] # (Auto) 1.04 H Immature Gran # 0.07 H Absolute Neutrophils 11.47 H POC pH 7.32 L POC pO2 69 L POC HCO3 18.1 L POC Total CO2 19.0 L POC ABG Base Excess -8.0 L ABG Lactic Acid 2.7 H VBG Lactic Acid 3.3 H Hgb O2 Saturation 92.0 L Chloride Carbon Dioxide BUN Creatinine Glucose Calcium Phosphorus Total Bilirubin Direct Bilirubin GGT AST ALT Alkaline Phosphatase Lactate Dehydrogenase Total Protein Albumin Albumin/Globulin Ratio Triglycerides 02/20/22 02/20/22 02/19/22 05:48 05:48 17:56 WBC 18.0 H RBC 4.39 L Hgb 12.8 L 12.2 L Hct 39.4 L 35.1 L RDW 14.8 H Immature Gran % (Auto) Neut % (Auto) 84.4 H Lymph % (Auto) 5.9 L Lymph # (Auto) 1.06 L [place] # (Auto) 1.58 H Immature Gran # 0.09 H Absolute Neutrophils 15.18 H POC pH POC pO2 POC HCO3 POC Total CO2 POC ABG Base Excess ABG Lactic Acid VBG Lactic Acid Hgb O2 Saturation Chloride Carbon Dioxide 20 L BUN Creatinine 1.5 H Glucose 149 H Calcium 8.3 L Phosphorus Total Bilirubin 1.8 H Direct Bilirubin 1.0 H GGT 233 H AST 53 H ALT 131 H Alkaline Phosphatase 137 H Lactate Dehydrogenase 258 H Total Protein Albumin Albumin/Globulin Ratio Triglycerides 160 H 02/19/22 12:18 WBC 17.8 H RBC 4.27 L Hgb 13.1 L Hct 38.4 L RDW 15.0 H Immature Gran % (Auto) Neut % (Auto) Lymph % (Auto) 11.4 L Lymph # (Auto) [place] # (Auto) 1.92 H Immature Gran # 0.09 H Absolute Neutrophils 13.70 H POC pH POC pO2 POC HCO3 POC Total CO2 POC ABG Base Excess ABG Lactic Acid VBG Lactic Acid Hgb O2 Saturation Chloride Carbon Dioxide BUN Creatinine Glucose Calcium Phosphorus Total Bilirubin Direct Bilirubin GGT AST ALT Alkaline Phosphatase Lactate Dehydrogenase Total Protein Albumin Albumin/Globulin Ratio Triglycerides Meds: Medications Albuterol/Ipratropium (Ipratropium/Albuterol 3 Ml Ampul.Neb) 3 ml NEB Q4HP PRN PRN Reason: Shortness Of Breath Last Admin: 02/21/22 21:45 Dose: 3 ml Alprazolam (Alprazolam 0.5 Mg Tablet) 1 mg PO HSP PRN PRN Reason: Insomnia Last Admin: 02/19/22 23:54 Dose: 1 mg Amlodipine Besylate (Amlodipine 10 Mg Tablet) 10 mg PO QDAY COUNT INCLUDES THE [facility] Last Admin: 02/22/22 08:17 Dose: Not Given Finasteride (Finasteride 5 Mg Tablet) 5 mg PO QDAY RODRIGUE Last Admin: 02/22/22 08:17 Dose: Not Given Glucagon (Glucagon,Human Recombinant 1 Mg Vial) 1 mg IV ONCE PRN PRN Reason: Spasms Hydralazine HCl (Hydralazine 20 Mg/Ml Vial) 20 mg IV Q4HP PRN PRN Reason: Hypertension Last Admin: 02/20/22 07:31 Dose: 20 mg Hydromorphone HCl (Hydromorphone 1 Mg/Ml Syringe) 0 mg IV Q2HP PRN; Protocol PRN Reason: Per Pain Protocol Last Admin: 02/22/22 03:59 Dose: 2 mg Piperacillin Sod/Tazobactam (Sod 3.375 gm/ Dextrose) 50 mls @ 100 mls/hr IV Q6H COUNT INCLUDES THE [facility]; Protocol Last Infusion: 02/22/22 06:22 Dose: Infused Sodium Chloride (Sodium Chloride 0.9%) 1,000 mls @ 100 mls/hr IV .Q10H RODRIGUE Last Admin: 02/22/22 04:01 Dose: 100 mls/hr Acetaminophen (Ofirmev) 1,000 mg in 100 mls @ 200 mls/hr IV Q6H RODRIGUE; Protocol Last Infusion: 02/22/22 07:30 Dose: Infused Lorazepam (Lorazepam 2 Mg/Ml Vial) 1 mg IV Q4-6HP PRN PRN Reason: ANXIETY/SEDATION Last Admin: 02/21/22 23:35 Dose: 1 mg Metoclopramide HCl (Metoclopramide 10 Mg/2 Ml Vial) 10 mg IV Q6 COUNT INCLUDES THE [facility] Last Admin: 02/22/22 05:52 Dose: 10 mg Oxybutynin Chloride (Oxybutynin Chloride 5 Mg Tablet) 5 mg PO HSP PRN PRN Reason: bladder spasms Pantoprazole Sodium (Pantoprazole 40 Mg Vial) 40 mg IV QAMAC COUNT INCLUDES THE [facility] Last Admin: 02/22/22 06:57 Dose: 40 mg Promethazine HCl (Promethazine 25 Mg/Ml Vial) 12.5 mg IV Q4HP PRN; Protocol PRN Reason: Nausea/Vomiting Last Admin: 02/19/22 21:16 Dose: 12.5 mg Tamsulosin HCl (Tamsulosin 0.4 Mg Capsule) 0.8 mg PO QDAY RODRIGUE Last Admin: 02/22/22 08:17 Dose: Not Given A/P Assessment and plan (1) Cholelithiasis with choledocholithiasis: Status: Acute (2) Benign hypertension with CKD (chronic kidney disease) stage III: Status: Chronic Comment: Baseline creatinine clearance 45 to 50 cc/min with a bland urinalysis Blood pressure goal 130 over (3) Stage 1 acute kidney injury: Status: Acute (4) Pneumonia involving left lung: Status: Acute (5) BPH w urinary obs/LUTS: Status: Acute (6) Acute respiratory failure with hypoxia: Status: Acute Narrative A/P Narrative: Assessment and Plans: 1. Acute respiratory failure, post operative: DDx: pulmonary embolism, atelectasis, pneumonia, ACS Stays in inpatient PCU Initial CXR showing left sided infiltrates suggestive of pneumonia, repeat CXR on 02/21 showing nearly complete improvement of the infiltrates seen from earlier exam CT angiogram chest and abdomen: negative for pulmonary embolism, but shows bilateral lung bases infiltrates suggestive of pneumonia Consider DVT ppx when okay by surgeon Supplemental oxygen Incentive spirometry Pain control with IV Tylenol and Dilaudid Early emulation if and when possible Blood culture, no growth to date Lactic acid Serial troponin Daily cbc w/ diff to trend WBC 12-lead ECG only showing sinus tachycardia Zosyn 2. Cholelithiasis and choledocholithiasis: s/p laparoscopy converted to open cholecystectomy Incentive spirometry Pain control with IV Tylenol and Dilaudid Early emulation if and when possible Abdominal X ray does not reveal bowel obstruction Currently NPO status Post surgical care as per primary team 3. Essential HTN: Amlodipine Hydralazine IV PRN elevated blood pressure 4. BPH: Finasteride Tamsulosin 5. Stage 2 acute kidney injury with chronic kidney disease III: Avoid nephrotoxic agents NS@100cc/hr Daily CMP to trend kidney functions Thank you for the consultation, will continue to follow Time Spent With Patient Time: Total time spent is greater than 50% in coordination of care (as documented) at patient's floor/unit and/or counseling patient: Total time spent with greater than 50% in coordination of care (as documented) at patient's floor/unit and/or counseling patient:: 25 - 35 minutes QUALITY VTE Deep Vein Thrombosis/Pulmonary Embolism Present on Admission: No
--- NOTE | 2022-02-22 09:27 | XRay Report ---
CLINICAL INFORMATION: FOR F/U OF ILEUS COMPARISON: 02/20/2022. FINDINGS: NG tube overlies the gastric antrum. The stool gas pattern is unremarkable. There is no free air, soft tissue mass, organomegaly or pathologic calcification. IMPRESSION: Normal abdomen. No evidence of bowel obstruction or ileus. NG tube tube in satisfactory position Interpreted and Authenticated by: Alonzo Canchola 02/22/22
--- NOTE | 2022-02-22 13:02 | General Surgery Progress Note ---
SUBJECTIVE Subjective Patient information: Note initiated : 02/22/22 at 1:01 pm Service Date, if different from initiated Date: [] Patient: Jonas Noble 71 y/o M admitted on 02/18/22 for bowel obstruction. Chief Complaint: [] Principal diagnosis: postoperative ileus Interval history: Patient is doing well. He is significantly improved from yesterday. He has improved respiratory status and is maintaining good oxygenation on room air. He has been afebrile. His abdominal pain is improved. He is passing flatus but has not had bowel movement. White blood count 10.3, hemoglobin 9.9, hematocrit 30.6, potassium 3.3, BUN 29, creatinine 1.8, all LFTs continue to trend. Abdominal x-rays reveals gas primarily in the colon with no significant small bowel distention and no free intraperitoneal air. Constitutional Vitals: Vital Signs Temp Pulse Resp BP Pulse Ox O2 Del Method O2 Flow Rate 98.1 F 109 H 16 129/101 95 2 02/22/22 12:05 02/22/22 02:01 02/22/22 12:05 02/22/22 12:05 02/22/22 12:05 02/22/22 12:05 02/21/22 10:25 Period Temp Pulse Resp BP Sys/Maza Pulse Ox O2 Del Method O2 Flow Rate Last 24 Hr 97.0 F-98.7 F 104-126 16-31 120-165/57-101 92-98 Room Air-Room Air Intake and Output 02/21/22 02/22/22 02/22/22 21:59 05:59 13:59 Intake Total 1250 1330 200 Output Total 1240 1090 675 Balance 10 240 -475 Weight 290 lb 1.6 oz Intake & Output: Intake & Output 02/21/22 02/22/22 02/22/22 21:59 05:59 13:59 Intake Total 1250 1330 200 Output Total 1240 1090 675 Balance 10 240 -475 Weight 290 lb 1.6 oz Intake: IV 1250 1150 200 Sodium Chloride 0.9% 1,000 ml @ 1000 1000 100 mls/hr IV .Q10H RODRIGUE Rx#: [id number] Zosyn 3.375 gm In Dextrose 5% 50 50 100 in Water 50 ml @ 100 mls/hr IV Q6H RODRIGUE Rx#:[id number] Oral 180 Tube Feeding 0 0 Output: Gastric Drainage 900 650 475 Right Nare NG/OG 900 650 475 Drainage 15 Right Abdomen 15 Drainage 15 Right Abdomen 15 Void Amount 325 425 200 Other: Urine Appearance Clear Clear Clear Urine Color Tea Colored Tea Colored Tea Colored Urine Odor Strong Normal Strong ENT ENT exam: Present mucous membranes moist, normal exam and normal oropharynx Neck Neck exam: Present full ROM and normal inspection Respiratory Respiratory exam: Present normal respiratory exam and CTAB Cardiovascular Cardiovascular exam: Present normal rate and rhythm, RRR, +S1 and +S2; Absent JVD GI/Abdominal GI/Abdominal exam: Present normal bowel sounds and distended Extremities Exam Extremities exam: Present normal inspection and neurovascular intact Neurological Exam Neurological exam: Present oriented X3 Psychiatric Psychiatric exam: Present normal affect and normal mood A/P Assessment and plan (1) Acute respiratory failure with hypoxia: Status: Acute (2) Postoperative ileus: Status: Acute (3) Essential hypertension: Status: Chronic Comment: Controlled with valsartan 320 mg at bedtime => now discontinued No longer requiring amlodipine or thiazide Plan Patient is stable and improved Nasogastric tube was discontinued Liquid diet has been respiratory He may be downgraded to MedSurg status Time Spent With Patient Time: Total time spent is greater than 50% in coordination of care (as documented) at patient's floor/unit and/or counseling patient:
--- NOTE | 2022-02-22 14:25 | Operative Note ---
DATE OF OPERATION: 02/18/2022 PREOPERATIVE DIAGNOSES: Cholelithiasis with cholecystitis. POSTOPERATIVE DIAGNOSES: Cholelithiasis with cholecystitis, intraoperative enterotomy. PROCEDURE: Diagnostic laparoscopy, open cholecystectomy, closure of small bowel enterotomy. SURGEON: Dominguez Stephens M.D. FINDINGS: Massive intraabdominal adhesions and edematous gallbladder with stones. COMPLICATIONS: Small bowel enterotomy during adhesiolysis. DESCRIPTION OF PROCEDURE: Under general anesthesia, the patient's abdomen was prepped and draped in a sterile field. Timeout procedure was carried out as per protocol. The patient had a history of having had an extended right colectomy and small bowel resection in the past, and he had intraabdominal peritonitis previously. He wished to have a trial at laparoscopic removal of the gallbladder. An incision was made in the left upper quadrant away from the scarring. The fascia was grasped and a Veress needle was inserted. The peritoneum was infused with 3 liters of CO2. Once this was done, I then made an incision in the supraumbilical midline. The fascia was opened longitudinally and was grasped with a Jane clamp. Using finger dissection, I was able to enter the free peritoneal space. Under videoscopic guidance, a blunt retractor was placed. The abdomen was further insufflated. The camera was then removed from the left upper quadrant and a 10 mm camera was placed in the supraumbilical midline. Under direct vision using electrocautery with a hook electrode, the adhesions were taken down, staying close to the peritoneum. A large volume of adhesions were removed. However, while removing adhesions in the midline immediately above the supraumbilical port site, an enterotomy was noted. It was, therefore, decided to abort the laparoscopic procedure and open. The midline incision was opened using guidance with a finger in the peritoneal cavity. The area of small bowel that had an enterotomy was easily found. It was closed in two layers using an inner layer of inverting 2-0 Monocryl and 3-0 Prolene. The bowel lumen was widely patent. Next, dissection was carried down in the right upper quadrant until I was able to find the gallbladder. The gallbladder was mostly intrahepatic. It was difficult to grasp. It was decompressed and was then grasped. The omentum that was stuck in the right upper quadrant was taken down using Metzenbaum scissors and electrocautery. Once this was done, I was able to dissect the omentum and small bowel from the right upper quadrant. The assistant head cashier was then directed to compress the stomach and small bowel. A Jasmine retractor was placed. An attempt was made to remove the gallbladder, but I could not get a good view. The edematous gallbladder had significant bleeding. During the procedure, Dr. Le entered into the room and I asked him to scrub to assist with dissection. Once he was scrubbed, I was able to get a better view of the gallbladder. The gallbladder was taken down, initially starting at the dome and once this became difficult, the infundibulum was dissected under direct vision until the cystic duct and cystic artery were identified. Cystic duct was clipped with five clips and divided. Cystic artery was clipped with four clips and divided. The gallbladder was then from the infrahepatic bed using blunt finger dissection. The gallbladder was passed off. Irrigation was carried out. Hemostasis was achieved. Four sheets of Surgicel were placed in the bed of the liver. A Reji drain was placed over this and brought out through a lateral incision. Sponge, needle, instrument, and blade counts were verified as correct. The abdomen was inspected. The repaired enterotomy was inspected and was intact. The fascia was closed in the midline using running #1 Prolene. The supraumbilical port site was closed with a 0 Prolene. Subcutaneous tissue was closed with running 2-0 Monocryl. Skin was closed with ernesto. The drain was secured with 2-0 nylon. The patient tolerated the procedure well. He received TXA 1 gram IV intraoperatively because of oozing from the liver bed. Tegaderm dressings were placed. The patient was awakened and was transferred to the postanesthetic care unit in satisfactory condition. LCS:joel Job ID: [id number] Doc ID: [id number] Dominguez Stephens M.D.
--- NOTE | 2022-02-22 16:00 | Internal Med Progress Note ---
SUBJECTIVE Subjective Patient information: Note initiated : 02/22/22 at 3:53 pm Service Date, if different from initiated Date: [] Patient: Jonas Noble 71 y/o M admitted on 02/18/22 for bowel obstruction. Chief Complaint: [] Principal diagnosis: postoperative ileus Interval history: Patient is a 71 years old gentleman history of essential hypertensions, chronic kidney disease stage III, BPH, presenting with postprandial abdominal pain on February 15, 2022. CT of the abdomen at admission showing dilated common bile duct and intrahepatic ducts with a 6 mm distal common bile duct stone. He also has multiple stones in the gallbladder. Emergent ERCP was performed general surgeon Dr. Stephens performed laparoscopic converted to open cholecystectomy on Friday, February 18, 2022. Patient is tolerated the surgery relatively okay. This morning at shift change around 7 AM, patient was found by his nurse to be tachycardic and tachypneic with rate of breathing and heart rate in the 30s and 140s, respectively. Patient is also showing labored breathing. Rapid response was called and patient was transferred to PCU for higher level of care. Patient is currently is complaining of increased shortness of breath. Abdominal pain is being adequately controlled with IV Tylenol and Dilaudid. Emergent chest x- ray showing acute left-sided infiltrates consistent with pneumonia. Abdominal CT showing bowel gas pattern unremarkable. And no evidence of mechanical small bowel obstructions. CT angiogram chest and abdomen pending at the moment. 02/21: CTA chest: negative of PE, but shows bilateral lung bases infiltrates suggestive of pneumonia. Afebrile overnight. Patient is currently on 1.5-2L/min nasal cannula oxygen. Cultures no growth to date. WBC down trended 17.8-->13.8. Serum Cr worsen from 1.5-->2.4. Patient is complaining of 3 out of 10 abdominal pain. He is having much improved degree of shortness of breath. He denies any cough or wheezing. He denies any fever, chills, or diaphoresis. He denies any nausea or vomiting. NG tube still in place. The patient still currently on n.p.o. status. Patient has not passed any bowel movement yet. Continue Zosyn while monitoring culture results. Repeat chest x-ray today. Continue IV fluid, avoid nephrotoxic agents, and repeat CMP in the morning to trend kidney functions. Rest of the surgical management as per primary team. 02/22: Afebrile overnight. Patient is currently on room air. Blood culture no growth today. Repeat chest x-ray from yesterday showing nearly complete improvement of the infiltrates seen from previous exams. Patient's degree of shortness of breath has greatly improved. Denies any chest pain. Denies any coughing or respiratory wheezings. Denies any fever chills or diaphoresis. He is still made n.p.o. status as per general surgeon Dr. Stephens. Continue Zosyn while monitoring culture results. Continue IV fluid, avoid nephrotoxic agents, and repeat CMP in the morning to trend kidney functions. Rest of the surgical management as per primary team. Constitutional Vitals: Vital Signs Temp Pulse Resp BP Pulse Ox O2 Del Method O2 Flow Rate 98.1 F 109 H 16 129/101 95 2 02/22/22 12:05 02/22/22 02:01 02/22/22 12:05 02/22/22 12:05 02/22/22 12:05 02/22/22 12:05 02/21/22 10:25 Period Temp Pulse Resp BP Sys/Maza Pulse Ox O2 Del Method O2 Flow Rate Last 24 Hr 97.0 F-98.7 F 104-113 16-31 120-165/57-101 92-98 Room Air-Room Air Intake and Output 02/22/22 02/22/22 02/22/22 05:59 13:59 21:59 Intake Total 1330 300 Output Total 1090 675 Balance 240 -375 Intake & Output: Intake & Output 02/22/22 02/22/22 02/22/22 05:59 13:59 21:59 Intake Total 1330 300 Output Total 1090 675 Balance 240 -375 Intake: IV 1150 300 Sodium Chloride 0.9% 1,000 ml @ 1000 100 mls/hr IV .Q10H [facility] Rx#: [id number] Zosyn 3.375 gm In Dextrose 5% 50 100 in Water 50 ml @ 100 mls/hr IV Q6H [facility] Rx#:[id number] Oral 180 Tube Feeding 0 Output: Gastric Drainage 650 475 Right Nare NG/OG 650 475 Drainage 15 Right Abdomen 15 Void Amount 425 200 Other: Urine Appearance Clear Clear Urine Color Tea Colored Tea Colored Urine Odor Normal Strong Exam: General: Alert, Awake, No acute Distress Eyes/N/T: EOMI, Head/Neck: neck supple, CV: RRR, No murmurs, Pulm: b/l, no wheezing/rhonchi/rales Abd: soft, nontender, +BS x4 Ext: no clubbing/cyanosis/edema Neuro: Alert, no focal deficits, moves all extremities, Skin: warm/dry OBJ DATA Labs CBC & Chem 7: 02/22/22 05:27 02/22/22 05:27 Labs: Abnormal Lab Results 02/22/22 02/22/22 02/21/22 05:27 05:27 05:14 WBC RBC 3.38 L Hgb 9.9 L Hct 30.6 L RDW 15.2 H Immature Gran % (Auto) 0.6 H Neut % (Auto) 82.3 H Lymph % (Auto) 9.6 L Lymph # (Auto) 0.99 L [place] # (Auto) Immature Gran # 0.06 H Absolute Neutrophils 8.51 H POC pH POC pO2 POC HCO3 POC Total CO2 POC ABG Base Excess ABG Lactic Acid VBG Lactic Acid Hgb O2 Saturation Chloride 111 H 109 H Carbon Dioxide 18 L 17 L BUN 29 H 27 H Creatinine 1.8 H 2.4 H Glucose 110 H 140 H Calcium 8.1 L 7.8 L Phosphorus 2.3 L Total Bilirubin 2.0 H 2.0 H Direct Bilirubin 1.1 H 1.1 H GGT 118 H 157 H AST ALT 60 H 88 H Alkaline Phosphatase Lactate Dehydrogenase 269 H 302 H Total Protein 5.7 L 5.3 L Albumin 2.6 L 3.0 L Albumin/Globulin Ratio 0.8 L Triglycerides 02/21/22 02/20/22 02/20/22 05:14 09:50 08:59 WBC 13.8 H RBC 3.95 L Hgb 11.4 L Hct 35.6 L RDW 15.0 H Immature Gran % (Auto) Neut % (Auto) 83.2 H Lymph % (Auto) 8.7 L Lymph # (Auto) 1.20 L [place] # (Auto) 1.04 H Immature Gran # 0.07 H Absolute Neutrophils 11.47 H POC pH 7.32 L POC pO2 69 L POC HCO3 18.1 L POC Total CO2 19.0 L POC ABG Base Excess -8.0 L ABG Lactic Acid 2.7 H VBG Lactic Acid 3.3 H Hgb O2 Saturation 92.0 L Chloride Carbon Dioxide BUN Creatinine Glucose Calcium Phosphorus Total Bilirubin Direct Bilirubin GGT AST ALT Alkaline Phosphatase Lactate Dehydrogenase Total Protein Albumin Albumin/Globulin Ratio Triglycerides 02/20/22 02/20/22 02/19/22 05:48 05:48 17:56 WBC 18.0 H RBC 4.39 L Hgb 12.8 L 12.2 L Hct 39.4 L 35.1 L RDW 14.8 H Immature Gran % (Auto) Neut % (Auto) 84.4 H Lymph % (Auto) 5.9 L Lymph # (Auto) 1.06 L [place] # (Auto) 1.58 H Immature Gran # 0.09 H Absolute Neutrophils 15.18 H POC pH POC pO2 POC HCO3 POC Total CO2 POC ABG Base Excess ABG Lactic Acid VBG Lactic Acid Hgb O2 Saturation Chloride Carbon Dioxide 20 L BUN Creatinine 1.5 H Glucose 149 H Calcium 8.3 L Phosphorus Total Bilirubin 1.8 H Direct Bilirubin 1.0 H GGT 233 H AST 53 H ALT 131 H Alkaline Phosphatase 137 H Lactate Dehydrogenase 258 H Total Protein Albumin Albumin/Globulin Ratio Triglycerides 160 H Meds: Medications Albuterol/Ipratropium (Ipratropium/Albuterol 3 Ml Ampul.Neb) 3 ml NEB Q4HP PRN PRN Reason: Shortness Of Breath Last Admin: 02/21/22 21:45 Dose: 3 ml Alprazolam (Alprazolam 0.5 Mg Tablet) 1 mg PO HSP PRN PRN Reason: Insomnia Last Admin: 02/19/22 23:54 Dose: 1 mg Amlodipine Besylate (Amlodipine 10 Mg Tablet) 10 mg PO QDAY [facility] Last Admin: 02/22/22 11:47 Dose: 10 mg Finasteride (Finasteride 5 Mg Tablet) 5 mg PO QDAY [facility] Last Admin: 02/22/22 11:46 Dose: 5 mg Glucagon (Glucagon,Human Recombinant 1 Mg Vial) 1 mg IV ONCE PRN PRN Reason: Spasms Hydralazine HCl (Hydralazine 20 Mg/Ml Vial) 20 mg IV Q4HP PRN PRN Reason: Hypertension Last Admin: 02/20/22 07:31 Dose: 20 mg Hydromorphone HCl (Hydromorphone 1 Mg/Ml Syringe) 0 mg IV Q2HP PRN; Protocol PRN Reason: Per Pain Protocol Last Admin: 02/22/22 14:14 Dose: 1 mg Piperacillin Sod/Tazobactam (Sod 3.375 gm/ Dextrose) 50 mls @ 100 mls/hr IV Q6H [facility]; Protocol Last Infusion: 02/22/22 12:32 Dose: Infused Sodium Chloride (Sodium Chloride 0.9%) 1,000 mls @ 100 mls/hr IV .Q10H [facility] Last Admin: 02/22/22 04:01 Dose: 100 mls/hr Acetaminophen (Ofirmev) 1,000 mg in 100 mls @ 200 mls/hr IV Q6H [facility]; Protocol Last Infusion: 02/22/22 13:08 Dose: Infused Lorazepam (Lorazepam 2 Mg/Ml Vial) 1 mg IV Q4-6HP PRN PRN Reason: ANXIETY/SEDATION Last Admin: 02/21/22 23:35 Dose: 1 mg Metoclopramide HCl (Metoclopramide 10 Mg/2 Ml Vial) 10 mg IV Q6 [facility] Last Admin: 02/22/22 11:51 Dose: 10 mg Oxybutynin Chloride (Oxybutynin Chloride 5 Mg Tablet) 5 mg PO HSP PRN PRN Reason: bladder spasms Pantoprazole Sodium (Pantoprazole 40 Mg Vial) 40 mg IV QAMAC [facility] Last Admin: 02/22/22 06:57 Dose: 40 mg Promethazine HCl (Promethazine 25 Mg/Ml Vial) 12.5 mg IV Q4HP PRN; Protocol PRN Reason: Nausea/Vomiting Last Admin: 02/19/22 21:16 Dose: 12.5 mg Tamsulosin HCl (Tamsulosin 0.4 Mg Capsule) 0.8 mg PO QDAY [facility] Last Admin: 02/22/22 11:46 Dose: 0.8 mg A/P Narrative A/P Narrative: Assessment and Plans: * Acute hypoxic respiratory failure, post operative: *PNA: -Initial CXR showing left sided infiltrates suggestive of pna, repeat CXR on 02/21 nearly complete improvement -no PE on CTA, but b/l base infiltrates *Cholelithiasis and choledocholithiasis: s/p laparoscopy converted to open cholecystectomy -per Surgeon *Post-Op Ileus: *Essential HTN: *VINCENT on CKD III: P: -abx -prn Supplemental oxygen -Incentive spirometry -diet per Surgeon -cont Amlodipine -NS@100cc/hr -Follow-up renal function -ppx: SCD, defer to surgeon Time Spent With Patient Time: Total time spent is greater than 50% in coordination of care (as documented) at patient's floor/unit and/or counseling patient: QUALITY VTE Deep Vein Thrombosis/Pulmonary Embolism Present on Admission: No
[2022-02-23] MEDS: PIPERACILLIN SODIUM/TAZOBACTAM 3.375 GM in DEXTROSE 5% IN WATER 50 ML IV SCH ×4 (00:01→21:01)
[2022-02-23] MEDS: ACETAMINOPHEN 1,000 MG/100 ML BAG IV SCH ×4 (00:04→19:27)
[2022-02-23] MEDS: HYDROmorphone 1 MG/ML SYRINGE IV PRN ×5 (00:07→21:12)
[2022-02-23] MEDS: METOCLOPRAMIDE 10 MG/2 ML VIAL IV SCH ×4 (05:02→18:11)
[2022-02-23] MEDS: 0.9 % SODIUM CHLORIDE 1,000 ML IV SCH ×4 (05:02→20:36)
[2022-02-23 06:52] LABS: Basophils # (Auto) 0.08 K/mcL (0.00-0.30); Basophils % (Auto) 0.6 % (0.0-2.0); Eosinophils # (Auto) 0.25 K/mcL (0.00-0.70); Hematocrit 31.8 % (40.1-51.0); Hemoglobin 10.9 g/dL (13.7-17.5); Lymphocytes # (Auto) 1.86 K/mcL (1.50-4.80); Lymphocytes % (Auto) 14.7 % (15.5-49.0); Mean Cell Volume 86.4 fL (80.0-100.0); Mean Corpuscular HGB Conc 34.3 g/dL (31.0-36.0); Mean Platelet Volume 10.4 fL (8.8-12.5); Monocytes # (Auto) 1.46 K/mcL (0.10-0.90); Monocytes % (Auto) 11.5 % (1.0-12.0); Neutrophils % (Auto) 65.8 % (38.0-78.0); Platelet Count 288 K/mcL (140-440); RBC 3.68 M/mcL (4.63-6.08); Red Cell Distribution Width 14.8 % (11.5-14.5); WBC 12.7 K/mcL (4.5-11.0)
[2022-02-23] MEDS ORDERED: LABETALOL 5 MG/ML ML IV PRN ×3 (07:09→09:48)
[2022-02-23] MEDS ORDERED: HYDROmorphone 1 MG/ML SYRINGE ONE (08:00)
[2022-02-23] MEDS ORDERED: FUROSEMIDE 40 MG/4 ML VIAL IV ONE ×2 (08:00→14:05)
[2022-02-23] MEDS ORDERED: PHENYLephrine 1 MG/10 ML SYRINGE (ANEST) ONE (08:00)
[2022-02-23] MEDS ORDERED: SUCCINYLCHOLINE 20 MG/ML ML IV ONE (08:00)
[2022-02-23] MEDS ORDERED: DEXAMETHASONE 10 MG/ML VIAL ONE (08:00)
[2022-02-23] MEDS ORDERED: ONDANSETRON 4 MG/2 ML VIAL ONE (08:00)
[2022-02-23] MEDS ORDERED: ROCURONIUM 10 MG/ML ML IV ONE (08:00)
[2022-02-23] MEDS ORDERED: fentaNYL 100 MCG/2 ML VIAL IV ONE (08:00)
[2022-02-23] MEDS ORDERED: LIDOCAINE HCL/PF 100 MG/5 ML SYRINGE IV ONE (08:00)
[2022-02-23] MEDS ORDERED: methylPREDNISolone SOD SUCC 125 MG/2 ML VIAL ONE (08:00)
[2022-02-23] MEDS ORDERED: PROPOFOL 200 MG/20 ML VIAL IV ONE (08:00)
[2022-02-23] MEDS ORDERED: MAGNESIUM SULFATE 2 GM/50 ML BAG IV ONE (08:00)
[2022-02-23] MEDS ORDERED: GLYCOPYRROLATE 0.2 MG/ML VIAL IV ONE (08:00)
[2022-02-23] MEDS ORDERED: KETAMINE 50 MG/ML Syringe (ANEST) IV ONE (08:00)
[2022-02-23] MEDS ORDERED: VANCOMYCIN 1 GM VIAL IR SCH (08:20)
[2022-02-23] MEDS ORDERED: GENTAMICIN SULFATE 800 MG/20 ML VIAL IR ONE (08:20)
--- NOTE | 2022-02-23 09:14 | Internal Med Progress Note ---
SUBJECTIVE Subjective Patient information: Note initiated : 02/23/22 at 9:10 am Service Date, if different from initiated Date: [] Patient: Jonas Noble 71 y/o M admitted on 02/18/22 for bowel obstruction- Cholelithiasis. Chief Complaint: [] Principal diagnosis: postoperative ileus Interval history: Patient is a 71 years old gentleman history of essential hypertensions, chronic kidney disease stage III, BPH, presenting with postprandial abdominal pain on February 15, 2022. CT of the abdomen at admission showing dilated common bile duct and intrahepatic ducts with a 6 mm distal common bile duct stone. He also has multiple stones in the gallbladder. Emergent ERCP was performed general surgeon Dr. Stephens performed laparoscopic converted to open cholecystectomy on Friday, February 18, 2022. Patient is tolerated the surgery relatively okay. This morning at shift change around 7 AM, patient was found by his nurse to be tachycardic and tachypneic with rate of breathing and heart rate in the 30s and 140s, respectively. Patient is also showing labored breathing. Rapid response was called and patient was transferred to PCU for higher level of care. Patient is currently is complaining of increased shortness of breath. Abdominal pain is being adequately controlled with IV Tylenol and Dilaudid. Emergent chest x- ray showing acute left-sided infiltrates consistent with pneumonia. Abdominal CT showing bowel gas pattern unremarkable. And no evidence of mechanical small bowel obstructions. CT angiogram chest and abdomen pending at the moment. 02/21: CTA chest: negative of PE, but shows bilateral lung bases infiltrates suggestive of pneumonia. Afebrile overnight. Patient is currently on 1.5-2L/min nasal cannula oxygen. Cultures no growth to date. WBC down trended 17.8-->13.8. Serum Cr worsen from 1.5-->2.4. Patient is complaining of 3 out of 10 abdominal pain. He is having much improved degree of shortness of breath. He denies any cough or wheezing. He denies any fever, chills, or diaphoresis. He denies any nausea or vomiting. NG tube still in place. The patient still currently on n. p.o. status. Patient has not passed any bowel movement yet. Continue Zosyn while monitoring culture results. Repeat chest x-ray today. Continue IV fluid, avoid nephrotoxic agents, and repeat CMP in the morning to trend kidney functions. Rest of the surgical management as per primary team. 02/22: Afebrile overnight. Patient is currently on room air. Blood culture no growth today. Repeat chest x-ray from yesterday showing nearly complete improvement of the infiltrates seen from previous exams. Patient's degree of shortness of breath has greatly improved. Denies any chest pain. Denies any coughing or respiratory wheezings. Denies any fever chills or diaphoresis. He is still made n.p.o. status as per general surgeon Dr. Stephens. 02/23 Patient found to have drainage from incision site this morning with tachycardia. Patient was emergently taken back to the OR found to have small bowel leak and abdominal wall cellulitis with microperforation of the small bowel x3 with localized peritonitis. Patient transferred back to PCU after procedure. Patient had ex lap with closure of Microbrush x3 evacuation of hematoma. Wound VAC placed. Has cough and some shortness of breath. Review of Systems: denies headache/fever/chills/nausea/vomiting/chest pain/diarrhea. Otherwise see above. Constitutional Vitals: Vital Signs Temp Pulse Resp BP Pulse Ox O2 Del Method O2 Flow Rate 98.6 F 117 H 24 H 176/84 97 2 02/23/22 07:15 02/23/22 07:15 02/23/22 07:15 02/23/22 07:15 02/23/22 07:15 02/23/22 07:15 02/21/22 10:25 Period Temp Pulse Resp BP Sys/Maza Pulse Ox O2 Del Method O2 Flow Rate Last 24 Hr 98.1 F-98.6 F 110-124 16-36 129-180/73-101 90-97 Room Air-Room Air Intake and Output 02/22/22 02/23/22 02/23/22 21:59 05:59 13:59 Intake Total 1550 2225 Output Total 800 235 Balance 750 1989 Weight 133.22 kg Intake & Output: Intake & Output 02/22/22 02/23/22 02/23/22 21:59 05:59 13:59 Intake Total 1550 2225 Output Total 800 235 Balance 750 1989 Weight 133.22 kg Intake: IV 1050 1300 Sodium Chloride 0.9% 1,000 ml @ 1000 1000 100 mls/hr IV .Q10H [facility] Rx#: [id number] Zosyn 3.375 gm In Dextrose 5% 50 100 in Water 50 ml @ 100 mls/hr IV Q6H [facility] Rx#:[id number] Oral 500 925 Output: Drainage 10 Right Abdomen 10 Void Amount 800 225 Other: Urine Appearance Clear Clear Urine Color Tea Colored Yellow Urine Odor Normal Normal Exam: General: Alert, Awake, No acute Distress Eyes/N/T: EOMI, Head/Neck: neck supple, CV: RRR, No murmurs, Pulm: Clear b/l, no wheezing/rhonchi/rales, mild upper airway rhonchi Abd: Distended, decreased BS x4, TREVER drains and wound VAC in place Ext: no clubbing/cyanosis, b/l LE 1+ edema Neuro: Alert, no focal deficits, moves all extremities, Skin: warm/dry OBJ DATA Labs CBC & Chem 7: 02/23/22 05:23 02/22/22 05:27 Labs: Abnormal Lab Results 02/23/22 02/22/22 02/22/22 05:23 05:27 05:27 WBC 12.7 H RBC 3.68 L 3.38 L Hgb 10.9 L 9.9 L Hct 31.8 L 30.6 L RDW 14.8 H 15.2 H Immature Gran % (Auto) 5.4 H 0.6 H Neut % (Auto) 82.3 H Lymph % (Auto) 14.7 L 9.6 L Lymph # (Auto) 0.99 L [place] # (Auto) 1.46 H Immature Gran # 0.69 H 0.06 H Absolute Neutrophils 8.33 H 8.51 H VBG Lactic Acid Chloride 111 H Carbon Dioxide 18 L BUN 29 H Creatinine 1.8 H Glucose 110 H Calcium 8.1 L Phosphorus 2.3 L Total Bilirubin 2.0 H Direct Bilirubin 1.1 H GGT 118 H ALT 60 H Lactate Dehydrogenase 269 H Total Protein 5.7 L Albumin 2.6 L Albumin/Globulin Ratio 0.8 L 02/21/22 02/21/22 02/20/22 05:14 05:14 09:50 WBC 13.8 H RBC 3.95 L Hgb 11.4 L Hct 35.6 L RDW 15.0 H Immature Gran % (Auto) Neut % (Auto) 83.2 H Lymph % (Auto) 8.7 L Lymph # (Auto) 1.20 L [place] # (Auto) 1.04 H Immature Gran # 0.07 H Absolute Neutrophils 11.47 H VBG Lactic Acid 3.3 H Chloride 109 H Carbon Dioxide 17 L BUN 27 H Creatinine 2.4 H Glucose 140 H Calcium 7.8 L Phosphorus Total Bilirubin 2.0 H Direct Bilirubin 1.1 H GGT 157 H ALT 88 H Lactate Dehydrogenase 302 H Total Protein 5.3 L Albumin 3.0 L Albumin/Globulin Ratio Meds: Medications Albuterol/Ipratropium (Ipratropium/Albuterol 3 Ml Ampul.Neb) 3 ml NEB Q4HP PRN PRN Reason: Shortness Of Breath Last Admin: 02/21/22 21:45 Dose: 3 ml Alprazolam (Alprazolam 0.5 Mg Tablet) 1 mg PO HSP PRN PRN Reason: Insomnia Last Admin: 02/19/22 23:54 Dose: 1 mg Amlodipine Besylate (Amlodipine 10 Mg Tablet) 10 mg PO QDAY [facility] Last Admin: 02/22/22 11:47 Dose: 10 mg Finasteride (Finasteride 5 Mg Tablet) 5 mg PO QDAY [facility] Last Admin: 02/22/22 11:46 Dose: 5 mg Hydralazine HCl (Hydralazine 20 Mg/Ml Vial) 20 mg IV Q4HP PRN PRN Reason: Hypertension Last Admin: 02/20/22 07:31 Dose: 20 mg Hydromorphone HCl (Hydromorphone 1 Mg/Ml Syringe) 0 mg IV Q2HP PRN; Protocol PRN Reason: Per Pain Protocol Last Admin: 02/23/22 04:34 Dose: 1 mg Piperacillin Sod/Tazobactam (Sod 3.375 gm/ Dextrose) 50 mls @ 100 mls/hr IV Q6H [facility]; Protocol Last Infusion: 02/23/22 05:41 Dose: Infused Sodium Chloride (Sodium Chloride 0.9%) 1,000 mls @ 100 mls/hr IV .Q10H [facility] Last Admin: 02/23/22 05:02 Dose: 100 mls/hr Acetaminophen (Ofirmev) 1,000 mg in 100 mls @ 200 mls/hr IV Q6H [facility]; Protocol Last Infusion: 02/23/22 01:06 Dose: Infused Labetalol HCl (Labetalol 5 Mg/Ml Ml) 10 - 20 mg IV Q2HP PRN PRN Reason: Hypertension Lorazepam (Lorazepam 2 Mg/Ml Vial) 1 mg IV Q4-6HP PRN PRN Reason: ANXIETY/SEDATION Last Admin: 02/21/22 23:35 Dose: 1 mg Metoclopramide HCl (Metoclopramide 10 Mg/2 Ml Vial) 10 mg IV Q6 [facility] Last Admin: 02/23/22 05:02 Dose: 10 mg Oxybutynin Chloride (Oxybutynin Chloride 5 Mg Tablet) 5 mg PO HSP PRN PRN Reason: bladder spasms Pantoprazole Sodium (Pantoprazole 40 Mg Vial) 40 mg IV QAMAC [facility] Last Admin: 02/22/22 06:57 Dose: 40 mg Promethazine HCl (Promethazine 25 Mg/Ml Vial) 12.5 mg IV Q4HP PRN; Protocol PRN Reason: Nausea/Vomiting Last Admin: 02/19/22 21:16 Dose: 12.5 mg Tamsulosin HCl (Tamsulosin 0.4 Mg Capsule) 0.8 mg PO QDAY [facility] Last Admin: 02/22/22 11:46 Dose: 0.8 mg Vancomycin HCl (Vancomycin 1 Gm Vial) 3 gm IR ONCE [facility]; Protocol Stop: 02/23/22 09:20 A/P Narrative A/P Narrative: Assessment and Plans: * Acute hypoxic respiratory failure, post operative: -was on room air but is on o2 post-op *PNA: -Initial CXR showing left sided infiltrates suggestive of pna, repeat CXR on 02/21 nearly complete improvement -no PE on CTA, but b/l base infiltrates *Cholelithiasis and choledocholithiasis: s/p laparoscopy converted to open cholecystectomy -per Surgeon *Post-Op Ileus: *Essential HTN: elevated *VINCENT on CKD III: improving *Metabolic acidosis: P: -abx -prn Supplemental oxygen -Incentive spirometry -NPO/diet per Surgeon -cont Amlodipine, add coreg when po intake -Follow-up renal function -ppx: SCD, defer to surgeon / ppi Time Spent With Patient Time: Total time spent is greater than 50% in coordination of care (as documented) at patient's floor/unit and/or counseling patient: Total time spent with greater than 50% in coordination of care (as documented) at patient's floor/unit and/or counseling patient:: 35 - 50 minutes QUALITY VTE Deep Vein Thrombosis/Pulmonary Embolism Present on Admission: No
[2022-02-23] MEDS ORDERED: ONDANSETRON 4 MG/2 ML VIAL IV PRN (09:48)
[2022-02-23] MEDS ORDERED: IPRATROPIUM/ALBUTEROL 3 ML AMPUL.NEB NEB PRN (09:48)
[2022-02-23] MEDS ORDERED: fentaNYL 100 MCG/2 ML VIAL IV PRN (09:48)
[2022-02-23] MEDS ORDERED: LACTATED RINGERS 250 ML IV PRN (09:48)
[2022-02-23] MEDS ORDERED: ACETAMINOPHEN 1,000 MG/100 ML BAG IV ONE (09:48)
[2022-02-23] MEDS ORDERED: NALOXONE HCL 0.4 MG/ML VIAL IV PRN (09:48)
[2022-02-23] MEDS ORDERED: PROMETHAZINE 25 MG/ML VIAL IV PRN (09:48)
[2022-02-23] MEDS ORDERED: MEPERIDINE 25 MG/ML VIAL IV PRN (09:48)
[2022-02-23] MEDS ORDERED: HYDROmorphone 0.5 MG/0.5 ML SYRINGE IV PRN (09:48)
[2022-02-23] MEDS ORDERED: METHOCARBAMOL 1,000 MG/10 ML VIAL IV PRN (09:48)
[2022-02-23] MEDS ORDERED: LACTATED RINGERS 1,000 ML IV SCH (10:00)
--- NOTE | 2022-02-23 10:00 | Brief Operative Note ---
Brief Operative Note Date of procedure: 02/23/22 Pre-op diagnosis: small bowel leak with abdominal wall cellulitis Post-op diagnosis: other (microperforation of small bowel x3 with localized peritonitis) Procedure: exploratory laparotomy with closure of microperforation x3and evacuation of hematoma and small bowel contents of superficial peritoneum wound vac placement Grafts/Implants: No (drains x2) Anesthesia: GETA Findings: 3 areas of microperforation of small bowel with leakage of succus;large hematoma of anterior abdominal wallon left ;collection of succus beneath lower midline incision; no diffuse peritonitis noted Complications: other Surgeon: Dominguez Stephens Estimated blood loss (cc): 25 Specimens Removed/Pathology: none sent Condition: stable Disposition: PACU
[2022-02-23] MEDS: PANTOPRAZOLE 40 MG VIAL IV SCH (10:47)
[2022-02-23] MEDS: FINASTERIDE 5 MG TABLET PO SCH (10:50)
[2022-02-23] MEDS: TAMSULOSIN 0.4 MG CAPSULE PO SCH (10:50)
[2022-02-23] MEDS: amLODIPine 10 MG TABLET PO SCH (10:50)
[2022-02-23] MEDS: METOPROLOL TARTRATE 5 MG/5 ML VIAL IV PRN ×2 (11:05→11:14)
[2022-02-23] MEDS ORDERED: hydrALAZINE 20 MG/ML VIAL IV ONE (11:51)
--- NOTE | 2022-02-23 12:24 | XRay Report ---
CLINICAL INFORMATION: Right IJ central line position COMPARISON: 02/21/2022 TECHNIQUE: Portable FINDINGS: Moderate widening of the cardiomediastinal silhouette is accentuated by portable technique and suboptimal inspiratory result. NG tip is in the gastric body. Right IJ tip overlies the SVC right atrial junction. Mild atelectasis noted in both mid and lower lungs. No effusions. IMPRESSION: Right IJ central line satisfactory position. Interpreted and Authenticated by: Alonzo Canchola 02/23/22
[2022-02-23] MEDS ORDERED: TPN PER PHARMACY IV SCH (12:45)
[2022-02-23] MEDS ORDERED: HALOPERIDOL LACTATE 5 MG/ML VIAL IV ONE (12:54)
[2022-02-23] MEDS ORDERED: DEXTROSE 50% 50 ML SYRINGE IV PRN (13:41)
[2022-02-23] MEDS: CARVEDILOL 6.25 MG TABLET PO SCH ×2 (13:54→17:06)
[2022-02-23] MEDS ORDERED: ALBUMIN HUMAN 12.5 GM/50 ML BAG IV ONE (14:05)
--- NOTE | 2022-02-23 14:48 | XRay Report ---
CLINICAL INFORMATION: ng tube placement COMPARISON: None. FINDINGS: NG tip is bent in the gastric fundus. The stool gas pattern is unremarkable. There is no free air, soft tissue mass, organomegaly or pathologic calcification. IMPRESSION: NG tip in the gastric fundus. Normal abdomen Interpreted and Authenticated by: Alonzo Canchola 02/23/22
[2022-02-23 15:53] LABS: ALT/SGPT 48 U/L (<40); AST/SGOT 30 U/L (<40); Albumin 2.4 gm/dL (3.2-5.2); Albumin/Globulin Ratio 0.7 (1.0-2.3); Alkaline Phosphatase 93 U/L (39-117); Bilirubin,Total 1.5 mg/dL (0.1-1.0); Blood Urea Nitrogen 24 mg/dL (8-23); Carbon Dioxide 21 mmol/L (22-30); Chloride 105 mmol/L (96-108); Globulin 3.5 gm/dL (2.2-3.7); Glomerular Filtration Rate 54; Glucose 150 mg/dL (70-105); Lactate Dehydrogenase 327 U/L (135-225); Phosphorous 3.5 mg/dL (2.5-4.5); Triglycerides 166 mg/dL (<150); Uric Acid 4.8 mg/dL (2.5-8.0)
[2022-02-23] MEDS ORDERED: CALCIUM GLUCONATE IV SCH (18:00)
[2022-02-23] MEDS ORDERED: POTASSIUM PHOSPHATE IV SCH (18:00)
[2022-02-23] MEDS ORDERED: POTASSIUM CHLORIDE IV SCH (18:00)
[2022-02-23] MEDS ORDERED: MVI IV SCH (18:00)
[2022-02-23] MEDS ORDERED: [UNRECOGNIZED DRUG - OTHER] IV SCH (18:00)
[2022-02-23] MEDS: FAT EMULSION 20% 250 ML in PREMIX 1 BAG IV SCH (18:03)
[2022-02-23] MEDS: INSULIN LISPRO 1 UNIT/0.01 ML UNIT SQ SCH (18:06)
[2022-02-23] MEDS: 0.9 % SODIUM CHLORIDE 10 ML SYRINGE IV SCH (21:12)
[2022-02-24] MEDS: METOCLOPRAMIDE 10 MG/2 ML VIAL IV SCH ×4 (00:05→16:59)
[2022-02-24] MEDS: HYDROmorphone 1 MG/ML SYRINGE IV PRN ×6 (00:05→21:52)
[2022-02-24] MEDS: ACETAMINOPHEN 1,000 MG/100 ML BAG IV SCH ×4 (00:08→20:02)
[2022-02-24] MEDS: INSULIN LISPRO 1 UNIT/0.01 ML UNIT SQ SCH ×4 (00:35→17:31)
[2022-02-24] MEDS: PIPERACILLIN SODIUM/TAZOBACTAM 3.375 GM in DEXTROSE 5% IN WATER 50 ML IV SCH ×4 (00:53→16:59)
[2022-02-24] MEDS: 0.9 % SODIUM CHLORIDE 1,000 ML IV SCH ×3 (00:58→13:27)
[2022-02-24] MEDS: CARVEDILOL 6.25 MG TABLET PO SCH ×3 (06:35→16:59)
[2022-02-24 06:46] LABS: Basophils # (Auto) 0.04 K/mcL (0.00-0.30); Basophils % (Auto) 0.3 % (0.0-2.0); Eosinophils # (Auto) 0 K/mcL (0.00-0.70); Eosinophils % (Auto) 0 % (0.0-7.0); Hematocrit 28.3 % (40.1-51.0); Hemoglobin 9.1 g/dL (13.7-17.5); Lymphocytes % (Auto) 8.5 % (15.5-49.0); Mean Cell Volume 90.1 fL (80.0-100.0); Mean Corpuscular HGB Conc 32.2 g/dL (31.0-36.0); Mean Platelet Volume 9.9 fL (8.8-12.5); Monocytes # (Auto) 1.27 K/mcL (0.10-0.90); Monocytes % (Auto) 9.9 % (1.0-12.0); Neutrophils % (Auto) 76.4 % (38.0-78.0); Platelet Count 283 K/mcL (140-440); RBC 3.14 M/mcL (4.63-6.08); WBC 12.9 K/mcL (4.5-11.0)
[2022-02-24 07:09] LABS: ALT/SGPT 37 U/L (<40); AST/SGOT 25 U/L (<40); Albumin 2.3 gm/dL (3.2-5.2); Albumin/Globulin Ratio 0.7 (1.0-2.3); Alkaline Phosphatase 98 U/L (39-117); Bilirubin,Direct 0.6 mg/dL (<0.3); Bilirubin,Total 1.1 mg/dL (0.1-1.0); Blood Urea Nitrogen 25 mg/dL (8-23); Calcium 7.8 mg/dL (8.6-10.4); Carbon Dioxide 25 mmol/L (22-30); Chloride 106 mmol/L (96-108); Globulin 3.2 gm/dL (2.2-3.7); Glomerular Filtration Rate 49; Glucose 167 mg/dL (70-105); Lactate Dehydrogenase 299 U/L (135-225); Phosphorous 3.3 mg/dL (2.5-4.5); Triglycerides 152 mg/dL (<150); Uric Acid 5.1 mg/dL (2.5-8.0)
--- NOTE | 2022-02-24 07:52 | Internal Med Progress Note ---
SUBJECTIVE Subjective Patient information: Note initiated : 02/24/22 at 7:47 am Service Date, if different from initiated Date: [] Patient: Jonas Noble 71 y/o M admitted on 02/18/22 for bowel obstruction- Cholelithiasis. Chief Complaint: [] Principal diagnosis: postoperative ileus Interval history: Patient is a 71 years old gentleman history of essential hypertensions, chronic kidney disease stage III, BPH, presenting with postprandial abdominal pain on February 15, 2022. CT of the abdomen at admission showing dilated common bile duct and intrahepatic ducts with a 6 mm distal common bile duct stone. He also has multiple stones in the gallbladder. Emergent ERCP was performed general surgeon Dr. Stephens performed laparoscopic converted to open cholecystectomy on Friday, February 18, 2022. Patient is tolerated the surgery relatively okay. This morning at shift change around 7 AM, patient was found by his nurse to be tachycardic and tachypneic with rate of breathing and heart rate in the 30s and 140s, respectively. Patient is also showing labored breathing. Rapid response was called and patient was transferred to PCU for higher level of care. Patient is currently is complaining of increased shortness of breath. Abdominal pain is being adequately controlled with IV Tylenol and Dilaudid. Emergent chest x- ray showing acute left-sided infiltrates consistent with pneumonia. Abdominal CT showing bowel gas pattern unremarkable. And no evidence of mechanical small bowel obstructions. CT angiogram chest and abdomen pending at the moment. 02/21: CTA chest: negative of PE, but shows bilateral lung bases infiltrates suggestive of pneumonia. Afebrile overnight. Patient is currently on 1.5-2L/min nasal cannula oxygen. Cultures no growth to date. WBC down trended 17.8-->13.8. Serum Cr worsen from 1.5-->2.4. Patient is complaining of 3 out of 10 abdominal pain. He is having much improved degree of shortness of breath. He denies any cough or wheezing. He denies any fever, chills, or diaphoresis. He denies any nausea or vomiting. NG tube still in place. The patient still currently on n. p.o. status. Patient has not passed any bowel movement yet. Continue Zosyn while monitoring culture results. Repeat chest x-ray today. Continue IV fluid, avoid nephrotoxic agents, and repeat CMP in the morning to trend kidney functions. Rest of the surgical management as per primary team. 02/22: Afebrile overnight. Patient is currently on room air. Blood culture no growth today. Repeat chest x-ray from yesterday showing nearly complete improvement of the infiltrates seen from previous exams. Patient's degree of shortness of breath has greatly improved. Denies any chest pain. Denies any coughing or respiratory wheezings. Denies any fever chills or diaphoresis. He is still made n.p.o. status as per general surgeon Dr. Stephens. 02/23 Patient found to have drainage from incision site this morning with tachycardia. Patient was emergently taken back to the OR found to have small bowel leak and abdominal wall cellulitis with microperforation of the small bowel x3 with localized peritonitis. Patient transferred back to PCU after procedure. Patient had ex lap with closure of Microbrush x3 evacuation of hematoma. Wound VAC placed. Has cough and some shortness of breath. 02/24 Patient feeling much better today. Starting to pass gas. Good urine output with Lasix yesterday. Liter nasal cannula and likely to come off on room air. TREVER drains in place. Renal function stable. Review of Systems: denies headache/fever/chills/nausea/vomiting/chest pain/diarrhea. Otherwise see above. Constitutional Vitals: Vital Signs Temp Pulse Resp BP Pulse Ox O2 Del Method O2 Flow Rate 98 F 90 17 140/76 98 3 02/24/22 03:35 02/24/22 07:11 02/24/22 07:11 02/24/22 07:11 02/24/22 07:11 02/24/22 07:11 02/24/22 07:11 Period Temp Pulse Resp BP Sys/Maza Pulse Ox O2 Del Method O2 Flow Rate Last 24 Hr 97.5 F-99.0 F 85-110 -35 114-202/60-116 92-98 Nasal Cannula- Simple Mask 1-12 Intake and Output 02/23/22 02/24/22 02/24/22 21:59 05:59 13:59 Intake Total 250 1400 150 Output Total 3570 1528 405 Balance -4030 -128 -255 Weight 134.717 kg Intake & Output: Intake & Output 02/23/22 02/24/22 02/24/22 21:59 05:59 13:59 Intake Total 250 1400 150 Output Total 4280 1528 405 Balance -4030 -128 -255 Weight 134.717 kg Intake: IV 250 1400 150 Sodium Chloride 0.9% 1,000 ml @ 1000 100 mls/hr IV .Q10H [facility] Rx#: [id number] Intralipid 20% 250 ml In Premix 250 1 Bag @ 25 mls/hr IV MoWeFr@ 1600 [facility] Rx#:[id number] Zosyn 3.375 gm In Dextrose 5% 100 50 50 in Water 50 ml @ 100 mls/hr IV Q6H [facility] Rx#:[id number] Tube Feeding 0 Output: Gastric Drainage 50 300 Left Nare 50 300 Drainage 35 18 Left Abdomen TREVER Drain 10 10 Medial Abdomen TREVER Drain 18 3 Right Abdomen 7 5 Urine Catheter Amount 3345 1210 405 Void Amount 850 Other: Urine Appearance Clear Clear Clear Sediment Uretheral (Rg) Clear Clear Urine Color Yellow Yellow Bright Yellow Pale Pale Uretheral (Rg) Yellow Yellow Pale Pale Urine Odor Normal Normal Strong Uretheral (Rg) Normal Normal Exam: General: Alert, Awake, No acute Distress Eyes/N/T: EOMI, Head/Neck: neck supple, CV: RRR, No murmurs, Pulm: Clear b/l, no wheezing/rhonchi/rales, mild upper airway rhonchi Abd: Distended, decreased BS x4, TREVER drains and wound VAC in place Ext: no clubbing/cyanosis, b/l LE 1+ edema Neuro: Alert, no focal deficits, moves all extremities, Skin: warm/dry OBJ DATA Labs CBC & Chem 7: 02/24/22 05:27 02/24/22 05:27 Labs: Abnormal Lab Results 02/24/22 02/24/22 02/23/22 05:27 05:27 14:28 WBC 12.9 H RBC 3.14 L Hgb 9.1 L Hct 28.3 L RDW 15.0 H Immature Gran % (Auto) 4.9 H Neut % (Auto) Lymph % (Auto) 8.5 L Lymph # (Auto) 1.10 L Sibley # (Auto) 1.27 H Immature Gran # 0.63 H Absolute Neutrophils 9.84 H POC pO2 POC HCO3 POC ABG Base Excess Hgb O2 Saturation Chloride Carbon Dioxide BUN 25 H Creatinine 1.4 H Glucose 167 H Calcium 7.8 L Phosphorus Magnesium 2.6 H Total Bilirubin 1.1 H Direct Bilirubin 0.6 H GGT 79 H ALT Lactate Dehydrogenase 299 H Total Protein 5.5 L Albumin 2.3 L Albumin/Globulin Ratio 0.7 L Prealbumin 8.5 L Triglycerides 152 H 02/23/22 02/23/22 02/23/22 14:27 14:10 05:23 WBC 12.7 H RBC 3.68 L Hgb 10.9 L Hct 31.8 L RDW 14.8 H Immature Gran % (Auto) 5.4 H Neut % (Auto) Lymph % (Auto) 14.7 L Lymph # (Auto) Sibley # (Auto) 1.46 H Immature Gran # 0.69 H Absolute Neutrophils 8.33 H POC pO2 71 L POC HCO3 21.7 L POC ABG Base Excess -4.0 L Hgb O2 Saturation 93.0 L Chloride Carbon Dioxide 21 L BUN 24 H Creatinine 1.3 H Glucose 150 H Calcium 8.0 L Phosphorus Magnesium 2.9 H Total Bilirubin 1.5 H Direct Bilirubin 1.0 H GGT 100 H ALT 48 H Lactate Dehydrogenase 327 H Total Protein Albumin 2.4 L Albumin/Globulin Ratio 0.7 L Prealbumin Triglycerides 166 H 02/22/22 02/22/22 05:27 05:27 WBC RBC 3.38 L Hgb 9.9 L Hct 30.6 L RDW 15.2 H Immature Gran % (Auto) 0.6 H Neut % (Auto) 82.3 H Lymph % (Auto) 9.6 L Lymph # (Auto) 0.99 L Sibley # (Auto) Immature Gran # 0.06 H Absolute Neutrophils 8.51 H POC pO2 POC HCO3 POC ABG Base Excess Hgb O2 Saturation Chloride 111 H Carbon Dioxide 18 L BUN 29 H Creatinine 1.8 H Glucose 110 H Calcium 8.1 L Phosphorus 2.3 L Magnesium Total Bilirubin 2.0 H Direct Bilirubin 1.1 H GGT 118 H ALT 60 H Lactate Dehydrogenase 269 H Total Protein 5.7 L Albumin 2.6 L Albumin/Globulin Ratio 0.8 L Prealbumin Triglycerides Meds: Medications Albuterol/Ipratropium (Ipratropium/Albuterol 3 Ml Ampul.Neb) 3 ml NEB Q4HP PRN PRN Reason: Shortness Of Breath Last Admin: 02/21/22 21:45 Dose: 3 ml Carvedilol (Carvedilol 6.25 Mg Tablet) 6.25 mg PO BIDCC [facility] Last Admin: 02/24/22 07:43 Dose: 6.25 mg Dextrose (Dextrose 50% 50 Ml Syringe) 25 - 50 ml IV UD PRN PRN Reason: Hypoglycemia Diagnostic Test (Pha) (Accu-Chek 1 Each Strip) 1 each FS Q6 [facility] Last Admin: 02/24/22 06:03 Dose: 1 each Hydralazine HCl (Hydralazine 20 Mg/Ml Vial) 20 mg IV Q4HP PRN PRN Reason: Hypertension Last Admin: 02/20/22 07:31 Dose: 20 mg Hydromorphone HCl (Hydromorphone 1 Mg/Ml Syringe) 0 mg IV Q2HP PRN; Protocol PRN Reason: Per Pain Protocol Last Admin: 02/24/22 02:55 Dose: 2 mg Piperacillin Sod/Tazobactam (Sod 3.375 gm/ Dextrose) 50 mls @ 100 mls/hr IV Q6H [facility]; Protocol Last Infusion: 02/24/22 06:10 Dose: Infused Sodium Chloride (Sodium Chloride 0.9%) 1,000 mls @ 100 mls/hr IV .Q10H [facility] Last Admin: 02/24/22 05:22 Dose: Not Given Acetaminophen (Ofirmev) 1,000 mg in 100 mls @ 200 mls/hr IV Q6H [facility]; Protocol Last Infusion: 02/24/22 07:30 Dose: Infused Fat Emulsion Intravenous 250 (ml/ Premix) 250 mls @ 25 mls/hr IV MoWeFr@1600 [facility] Last Infusion: 02/24/22 04:10 Dose: Infused Calcium Gluconate 5 meq/Potassium Chloride 20 meq/Potassium Phosphate 20 meq/Multivitamins/Minerals 10 ml/Sodium Phosphate 20 mmol/Amino Acids 1,041.9648 mls @ 40 mls/hr IV Q24H [facility] Last Admin: 02/23/22 18:03 Dose: 40 mls/hr Insulin Human Lispro (Insulin Lispro 1 Unit/0.01 Ml Unit) 0 unit SQ Q6 [facility]; Protocol Last Admin: 02/24/22 06:03 Dose: 4 units Labetalol HCl (Labetalol 5 Mg/Ml Ml) 10 - 20 mg IV Q2HP PRN PRN Reason: Hypertension Lorazepam (Lorazepam 2 Mg/Ml Vial) 1 mg IV Q4-6HP PRN PRN Reason: ANXIETY/SEDATION Last Admin: 02/21/22 23:35 Dose: 1 mg Metoclopramide HCl (Metoclopramide 10 Mg/2 Ml Vial) 10 mg IV Q6 [facility] Last Admin: 02/24/22 06:03 Dose: 10 mg Promethazine HCl (Promethazine 25 Mg/Ml Vial) 12.5 mg IV Q4HP PRN; Protocol PRN Reason: Nausea/Vomiting Last Admin: 02/19/22 21:16 Dose: 12.5 mg Sodium Chloride (0.9 % Sodium Chloride 10 Ml Syringe) 10 ml IV Q12 [facility] Last Admin: 02/23/22 21:12 Dose: 10 ml Sodium Chloride (0.9 % Sodium Chloride 10 Ml Syringe) 10 ml IV UD PRN PRN Reason: FLUSH A/P Narrative A/P Narrative: Assessment and Plans: * Acute hypoxic respiratory failure, post operative: -was on room air but is on o2 post-op, atelectasis on cxr, possible component of volume overload *PNA: -Initial CXR showing left sided infiltrates suggestive of pna, repeat CXR on 02/21 nearly complete improvement -no PE on CTA, but b/l base infiltrates *Cholelithiasis and choledocholithiasis: s/p lap converted to open cholecystectomy (02/18) -per Surgeon *Microperferations/small bowel leak/hematoma: s/p Ex-lap (02/23) *Post-Op Ileus: *Essential HTN: elevated but better *VINCENT on CKD III: fluctuating with events *Metabolic acidosis: P: -abx -prn Supplemental oxygen -lasix x1 today -Incentive spirometry -NPO/diet per Surgeon -monitor renal and uop -cont Amlodipine, added coreg when po intake -Follow-up renal function -ppx: SCD, defer to surgeon / ppi Time Spent With Patient Time: Total time spent is greater than 50% in coordination of care (as documented) at patient's floor/unit and/or counseling patient: Total time spent with greater than 50% in coordination of care (as documented) at patient's floor/unit and/or counseling patient:: 25 - 35 minutes QUALITY VTE Deep Vein Thrombosis/Pulmonary Embolism Present on Admission: No
[2022-02-24] MEDS: 0.9 % SODIUM CHLORIDE 10 ML SYRINGE IV SCH ×2 (08:47→20:03)
[2022-02-24] MEDS ORDERED: FUROSEMIDE 40 MG/4 ML VIAL IV ONE (10:49)
[2022-02-24] MEDS ORDERED: ALBUMIN HUMAN 12.5 GM/50 ML BAG IV ONE (10:49)
[2022-02-24] MEDS ORDERED: CALCIUM GLUCONATE IV SCH (15:00)
[2022-02-24] MEDS ORDERED: MVI IV SCH (15:00)
[2022-02-24] MEDS ORDERED: POTASSIUM CHLORIDE IV SCH (15:00)
[2022-02-24] MEDS ORDERED: POTASSIUM PHOSPHATE IV SCH (15:00)
[2022-02-24] MEDS ORDERED: [UNRECOGNIZED DRUG - OTHER] IV SCH (15:00)
--- NOTE | 2022-02-24 15:33 | General Surgery Progress Note ---
SUBJECTIVE Subjective Patient information: Note initiated : 02/24/22 at 3:32 pm Service Date, if different from initiated Date: [02/17/2022] Patient: Jonas Noble 71 y/o M admitted on 02/18/22 for bowel obstruction- Cholelithiasis. Chief Complaint: [] Principal diagnosis: Common bile duct stone Interval history: Patient is clinically stable. 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 Patient has advised that this will delay his cholecystectomy follow-up. He is clinically distraught but is willing to wait until the ERCP can be done. We do not have any other options in the region and he would have to be transferred out of state for the ERCP. . Constitutional Vitals: Vital Signs Temp Pulse Resp BP Pulse Ox O2 Del Method O2 Flow Rate 98.0 F 78 25 H 124/66 95 1 02/24/22 13:44 02/24/22 15:01 02/24/22 15:01 02/24/22 15:01 02/24/22 15:01 02/24/22 15:01 02/24/22 10:01 Period Temp Pulse Resp BP Sys/Maza Pulse Ox O2 Del Method O2 Flow Rate Last 24 Hr 97.7 F-99.0 F 78-105 16-26 114-150/53-91 93-99 Nasal Cannula- Room Air 1-5 Intake and Output 02/24/22 02/24/22 02/24/22 05:59 13:59 21:59 Intake Total 1400 1640 Output Total 1528 1915 650 Balance -128 -275 -650 Intake & Output: Intake & Output 02/24/22 02/24/22 02/24/22 05:59 13:59 21:59 Intake Total 1400 1640 Output Total 1528 1915 650 Balance -128 -275 -650 Intake: IV 1400 1300 Sodium Chloride 0.9% 1,000 ml @ 1000 1000 100 mls/hr IV .Q10H [facility] Rx#: [id number] Intralipid 20% 250 ml In Premix 250 1 Bag @ 25 mls/hr IV MoWeFr@ 1600 [facility] Rx#:[id number] Zosyn 3.375 gm In Dextrose 5% 50 100 in Water 50 ml @ 100 mls/hr IV Q6H [facility] Rx#:[id number] Oral 340 Output: Gastric Drainage 300 325 Left Nare 300 325 Drainage 18 Left Abdomen TREVER Drain 10 Medial Abdomen TREVER Drain 3 Right Abdomen 5 Urine Catheter Amount 1210 1915 325 Uretheral (Rg) 325 Other: Urine Appearance Clear Clear Clear Sediment Uretheral (Rg) Clear Clear Urine Color Yellow Yellow Yellow Pale Pale Uretheral (Rg) Yellow Yellow Pale Pale Urine Odor Normal Normal Uretheral (Rg) Normal Normal Eye Eye exam: Present EOMI, PERRL and scleral icterus ENT ENT exam: Present mucous membranes moist and normal oropharynx Neck Neck exam: Present full ROM and normal inspection Respiratory Respiratory exam: Present normal respiratory exam and CTAB Cardiovascular Cardiovascular exam: Present normal rate and rhythm, RRR, +S1 and +S2; Absent JVD GI/Abdominal GI/Abdominal exam: Present normal bowel sounds, distended and tenderness (Mild tenderness in epigastrium and right upper quadrant but not significantly changed) Extremities Exam Extremities exam: Present normal inspection and neurovascular intact; Absent tenderness Neurological Exam Neurological exam: Present alert and oriented X3 Psychiatric Psychiatric exam: Present agitated and anxious A/P Assessment and plan (1) Cholelithiasis with choledocholithiasis: Status: Acute (2) Benign hypertension with CKD (chronic kidney disease) stage III: Status: Chronic Comment: Baseline creatinine clearance 45 to 50 cc/min with a bland urinalysis Blood pressure goal 130 over Plan Patient is counseled for the leg and proceeding with the ERCP. ERCP will be performed on 17 February 2022 Patient will have cholecystectomy on 18 February 2022 Time Spent With Patient Time: Total time spent is greater than 50% in coordination of care (as documented) at patient's floor/unit and/or counseling patient:
--- NOTE | 2022-02-24 16:24 | General Surgery Progress Note ---
SUBJECTIVE Subjective Patient information: Note initiated : 02/24/22 at 4:19 pm Service Date, if different from initiated Date: [] Patient: Jonas Noble 71 y/o M admitted on 02/18/22 for bowel obstruction- Cholelithiasis. Chief Complaint: [] Principal diagnosis: Small bowel microperforation Interval history: Patient is doing well status post reexploration for perforated small bowel. He states that he feels better. He has been afebrile. He has bloody drainage in his drains. He denies having any respiratory difficulty and his oxygen saturations are good. White blood count 12.9, hemoglobin 9.1, hematocrit 28.3, BUN 25, creatinine 1.4, bilirubin 1.1. AST, ALT and alkaline phosphatase are normal. Patient has had flatus but no bowel movement Constitutional Vitals: Vital Signs Temp Pulse Resp BP Pulse Ox O2 Del Method O2 Flow Rate 98.0 F 78 20 140/57 96 1 02/24/22 16:01 02/24/22 15:01 02/24/22 16:01 02/24/22 16:01 02/24/22 16:01 02/24/22 16:01 02/24/22 10:01 Period Temp Pulse Resp BP Sys/Maza Pulse Ox O2 Del Method O2 Flow Rate Last 24 Hr 98 F-99.0 F 78-105 16-26 114-150/53-91 93-99 Nasal Cannula- Room Air 1-5 Intake and Output 02/24/22 02/24/22 02/24/22 05:59 13:59 21:59 Intake Total 1400 1640 Output Total 1528 1915 895 Balance -128 -275 -895 Intake & Output: Intake & Output 02/24/22 02/24/22 02/24/22 05:59 13:59 21:59 Intake Total 1400 1640 Output Total 1528 1915 895 Balance -128 -275 -895 Intake: IV 1400 1300 Sodium Chloride 0.9% 1,000 ml @ 1000 1000 100 mls/hr IV .Q10H [facility] Rx#: [id number] Intralipid 20% 250 ml In Premix 250 1 Bag @ 25 mls/hr IV MoWeFr@ 1600 [facility] Rx#:[id number] Zosyn 3.375 gm In Dextrose 5% 50 100 in Water 50 ml @ 100 mls/hr IV Q6H [facility] Rx#:[id number] Oral 340 Output: Gastric Drainage 300 325 Left Nare 300 325 Drainage 18 Left Abdomen TREVER Drain 10 Medial Abdomen TREVER Drain 3 Right Abdomen 5 Urine Catheter Amount 1210 1915 570 Uretheral (Rg) 325 Other: Urine Appearance Clear Clear Clear Sediment Uretheral (Rg) Clear Clear Urine Color Yellow Yellow Yellow Pale Uretheral (Rg) Yellow Yellow Pale Pale Urine Odor Normal Normal Uretheral (Rg) Normal Normal ENT ENT exam: Present mucous membranes moist and normal oropharynx Neck Neck exam: Present full ROM and normal inspection; Absent tenderness Respiratory Respiratory exam: Present normal respiratory exam and CTAB; Absent rales Cardiovascular Cardiovascular exam: Present normal rate and rhythm, RRR, +S1 and +S2; Absent JVD GI/Abdominal GI/Abdominal exam: Present diminished bowel sounds, distended and tenderness (Diffuse abdominal wall tenderness; edema of abdominal wall is much improved compared to last evening.) Extremities Exam Extremities exam: Present pedal edema (2+ edema of feet and legs) and neurovascular intact Neurological Exam Neurological exam: Present alert and oriented X3; Absent motor sensory deficit Psychiatric Psychiatric exam: Present normal affect and normal mood A/P Assessment and plan (1) Small bowel perforation: Status: Acute (2) Postoperative ileus: Status: Acute (3) Acute respiratory failure with hypoxia: Status: Acute (4) Stage 1 acute kidney injury: Status: Acute (5) Postoperative haemorrhage: Status: Acute (6) Cholelithiasis with choledocholithiasis: Status: Acute Plan Patient will continue on present antibiotic therapy Drainage in his TREVER drains will be followed closely Time Spent With Patient Time: Total time spent is greater than 50% in coordination of care (as documented) at patient's floor/unit and/or counseling patient:
[2022-02-25] MEDS: METOCLOPRAMIDE 10 MG/2 ML VIAL IV SCH ×4 (00:40→17:17)
[2022-02-25] MEDS: 0.9 % SODIUM CHLORIDE 1,000 ML IV SCH ×4 (00:41→19:42)
[2022-02-25] MEDS: INSULIN LISPRO 1 UNIT/0.01 ML UNIT SQ SCH ×4 (00:42→17:16)
[2022-02-25] MEDS: PIPERACILLIN SODIUM/TAZOBACTAM 3.375 GM in DEXTROSE 5% IN WATER 50 ML IV SCH ×4 (00:42→17:17)
[2022-02-25] MEDS: ACETAMINOPHEN 1,000 MG/100 ML BAG IV SCH ×4 (01:24→19:39)
[2022-02-25] MEDS: HYDROmorphone 1 MG/ML SYRINGE IV PRN ×6 (05:30→22:24)
[2022-02-25 07:21] LABS: Basophils # (Auto) 0.08 K/mcL (0.00-0.30); Basophils % (Auto) 0.6 % (0.0-2.0); Eosinophils % (Auto) 1.6 % (0.0-7.0); Hematocrit 27.8 % (40.1-51.0); Hemoglobin 8.9 g/dL (13.7-17.5); Lymphocytes # (Auto) 2.09 K/mcL (1.50-4.80); Lymphocytes % (Auto) 16.8 % (15.5-49.0); Mean Cell Volume 90.6 fL (80.0-100.0); Mean Platelet Volume 9.8 fL (8.8-12.5); Monocytes # (Auto) 1.12 K/mcL (0.10-0.90); Neutrophils % (Auto) 66.7 % (38.0-78.0); Platelet Count 326 K/mcL (140-440); RBC 3.07 M/mcL (4.63-6.08); WBC 12.5 K/mcL (4.5-11.0)
--- NOTE | 2022-02-25 07:46 | Internal Med Progress Note ---
SUBJECTIVE Subjective Patient information: Note initiated : 02/25/22 at 7:42 am Service Date, if different from initiated Date: [] Patient: Jonas Noble 71 y/o M admitted on 02/18/22 for bowel obstruction- Cholelithiasis. Chief Complaint: [] Principal diagnosis: Small bowel microperforation Interval history: Patient is a 71 years old gentleman history of essential hypertensions, chronic kidney disease stage III, BPH, presenting with postprandial abdominal pain on February 15, 2022. CT of the abdomen at admission showing dilated common bile duct and intrahepatic ducts with a 6 mm distal common bile duct stone. He also has multiple stones in the gallbladder. Emergent ERCP was performed general surgeon Dr. Stephens performed laparoscopic converted to open cholecystectomy on Friday, February 18, 2022. Patient is tolerated the surgery relatively okay. This morning at shift change around 7 AM, patient was found by his nurse to be tachycardic and tachypneic with rate of breathing and heart rate in the 30s and 140s, respectively. Patient is also showing labored breathing. Rapid response was called and patient was transferred to PCU for higher level of care. Patient is currently is complaining of increased shortness of breath. Abdominal pain is being adequately controlled with IV Tylenol and Dilaudid. Emergent chest x- ray showing acute left-sided infiltrates consistent with pneumonia. Abdominal CT showing bowel gas pattern unremarkable. And no evidence of mechanical small bowel obstructions. CT angiogram chest and abdomen pending at the moment. 02/21: CTA chest: negative of PE, but shows bilateral lung bases infiltrates suggestive of pneumonia. Afebrile overnight. Patient is currently on 1.5-2L/min nasal cannula oxygen. Cultures no growth to date. WBC down trended 17.8-->13.8. Serum Cr worsen from 1.5-->2.4. Patient is complaining of 3 out of 10 abdominal pain. He is having much improved degree of shortness of breath. He denies any cough or wheezing. He denies any fever, chills, or diaphoresis. He denies any nausea or vomiting. NG tube still in place. The patient still currently on n.p.o. status. Patient has not passed any bowel movement yet. Continue Zosyn while monitoring culture results. Repeat chest x-ray today. Continue IV fluid, avoid nephrotoxic agents, and repeat CMP in the morning to trend kidney functions. Rest of the surgical management as per primary team. 02/22: Afebrile overnight. Patient is currently on room air. Blood culture no growth today. Repeat chest x-ray from yesterday showing nearly complete improvement of the infiltrates seen from previous exams. Patient's degree of shortness of breath has greatly improved. Denies any chest pain. Denies any coughing or respiratory wheezings. Denies any fever chills or diaphoresis. He is still made n.p.o. status as per general surgeon Dr. Stephens. 02/23 Patient found to have drainage from incision site this morning with tachycardia. Patient was emergently taken back to the OR found to have small bowel leak and abdominal wall cellulitis with microperforation of the small bowel x3 with loc alized peritonitis. Patient transferred back to PCU after procedure. Patient had ex lap with closur e of Microbrush x3 evacuation of hematoma. Wound VAC placed. Has cough and some shortness of breath. 02/24 Patient feeling much better today. Starting to pass gas. Good urine output with Lasix yesterday. Liter nasal cannula and likely to come off on room air. TREVER drains in place. Renal function stable. 02/25 Patient passing gas no bowel movement yet. No other new complaints other than he said he had a severe nightmare last night and poor sleep but otherwise no new complaints. Patient is on room air. Mild hypokalemia. Renal function looks good. Review of Systems: denies headache/fever/chills/nausea/vomiting/chest pain/diarrhea. Otherwise see above. Constitutional Vitals: Vital Signs Temp Pulse Resp BP Pulse Ox O2 Del Method O2 Flow Rate 98.3 F 74 18 156/69 97 0 02/25/22 04:00 02/25/22 07:00 02/25/22 07:09 02/25/22 07:00 02/25/22 07:09 02/25/22 07:09 02/25/22 07:09 Period Temp Pulse Resp BP Sys/Maza Pulse Ox O2 Del Method O2 Flow Rate Last 24 Hr 98 F-98.5 F 67-85 13-32 115-162/49-95 90-100 Nasal Cannula- Room Air 0-3 Intake and Output 11/03/22 11/04/22 11/04/22 21:59 05:59 13:59 Intake Total 1118 1150 50 Output Total 1585 1795 250 Balance -467 -645 -200 Weight 134.292 kg Intake & Output: Intake & Output 02/24/22 02/25/22 02/25/22 21:59 05:59 13:59 Intake Total 1118 1150 50 Output Total 1585 1795 250 Balance -467 -645 -200 Weight 134.292 kg Intake: IV 998 1150 50 Sodium Chloride 0.9% 1,000 ml @ 1000 100 mls/hr IV .Q10H [facility] Rx#: [id number] Calcium Gluconate 5 Meq 848 Potassium Chloride 20 Meq Potassium Phosphate 20 Meq Infuvite Adult 10 ml Sodium Phosphate 20 Mmol In Clinimix 5 %-20% Solution 1,000 ml @ 40 mls/hr IV Q24H [facility] Rx#: [id number] Zosyn 3.375 gm In Dextrose 5% 50 50 50 in Water 50 ml @ 100 mls/hr IV Q6H [facility] Rx#:[id number] Oral 120 Output: Gastric Drainage 575 400 Left Nare 575 400 Drainage 25 10 Medial Abdomen Woundvac 25 10 Drainage 35 35 Left Abdomen TREVER Drain 15 15 Medial Abdomen TREVER Drain 10 10 Right Abdomen 10 10 Urine Catheter Amount 950 1350 250 Uretheral (Rg) 325 Other: Urine Appearance Clear Sediment Clear Uretheral (Rg) Clear Clear Clear Urine Color Yellow Light Paige Yellow Pale Uretheral (Rg) Yellow Yellow Yellow Pale Pale Urine Odor Normal Normal Normal Uretheral (Rg) Normal Normal Normal Exam: General: Alert, Awake, No acute Distress, obese Eyes/N/T: EOMI, Head/Neck: neck supple, CV: RRR, No murmurs, Pulm: Clear b/l, no wheezing/rhonchi/rales, mild upper airway rhonchi Abd: Distended, +BS x4, TREVER drains and wound VAC in place Ext: no clubbing/cyanosis, b/l LE 1+ edema Neuro: Alert, no focal deficits, moves all extremities, Skin: warm/dry OBJ DATA Labs CBC & Chem 7: 02/25/22 05:39 02/25/22 05:39 Labs: Abnormal Lab Results 02/25/22 02/24/22 02/24/22 05:39 05:27 05:27 WBC 12.5 H 12.9 H RBC 3.07 L 3.14 L Hgb 8.9 L 9.1 L Hct 27.8 L 28.3 L RDW 15.0 H 15.0 H Immature Gran % (Auto) 5.3 H 4.9 H Lymph % (Auto) 8.5 L Lymph # (Auto) 1.10 L [place] # (Auto) 1.12 H 1.27 H Immature Gran # 0.66 H 0.63 H Absolute Neutrophils 8.30 H 9.84 H POC pO2 POC HCO3 POC ABG Base Excess Hgb O2 Saturation Carbon Dioxide BUN 25 H Creatinine 1.4 H Glucose 167 H Calcium 7.8 L Magnesium 2.6 H Total Bilirubin 1.1 H Direct Bilirubin 0.6 H GGT 79 H ALT Lactate Dehydrogenase 299 H Total Protein 5.5 L Albumin 2.3 L Albumin/Globulin Ratio 0.7 L Prealbumin Triglycerides 152 H 02/23/22 02/23/22 02/23/22 14:28 14:27 14:10 WBC RBC Hgb Hct RDW Immature Gran % (Auto) Lymph % (Auto) Lymph # (Auto) [place] # (Auto) Immature Gran # Absolute Neutrophils POC pO2 71 L POC HCO3 21.7 L POC ABG Base Excess -4.0 L Hgb O2 Saturation 93.0 L Carbon Dioxide 21 L BUN 24 H Creatinine 1.3 H Glucose 150 H Calcium 8.0 L Magnesium 2.9 H Total Bilirubin 1.5 H Direct Bilirubin 1.0 H GGT 100 H ALT 48 H Lactate Dehydrogenase 327 H Total Protein Albumin 2.4 L Albumin/Globulin Ratio 0.7 L Prealbumin 8.5 L Triglycerides 166 H 02/23/22 05:23 WBC 12.7 H RBC 3.68 L Hgb 10.9 L Hct 31.8 L RDW 14.8 H Immature Gran % (Auto) 5.4 H Lymph % (Auto) 14.7 L Lymph # (Auto) [place] # (Auto) 1.46 H Immature Gran # 0.69 H Absolute Neutrophils 8.33 H POC pO2 POC HCO3 POC ABG Base Excess Hgb O2 Saturation Carbon Dioxide BUN Creatinine Glucose Calcium Magnesium Total Bilirubin Direct Bilirubin GGT ALT Lactate Dehydrogenase Total Protein Albumin Albumin/Globulin Ratio Prealbumin Triglycerides Meds: Medications Albuterol/Ipratropium (Ipratropium/Albuterol 3 Ml Ampul.Neb) 3 ml NEB Q4HP PRN PRN Reason: Shortness Of Breath Last Admin: 02/21/22 21:45 Dose: 3 ml Carvedilol (Carvedilol 6.25 Mg Tablet) 6.25 mg PO BIDCC [facility] Last Admin: 02/24/22 16:59 Dose: 6.25 mg Dextrose (Dextrose 50% 50 Ml Syringe) 25 - 50 ml IV UD PRN PRN Reason: Hypoglycemia Diagnostic Test (Pha) (Accu-Chek 1 Each Strip) 1 each FS Q6 [facility] Last Admin: 02/25/22 05:30 Dose: 1 each Hydralazine HCl (Hydralazine 20 Mg/Ml Vial) 20 mg IV Q4HP PRN PRN Reason: Hypertension Last Admin: 02/20/22 07:31 Dose: 20 mg Hydromorphone HCl (Hydromorphone 1 Mg/Ml Syringe) 0 mg IV Q2HP PRN; Protocol PRN Reason: Per Pain Protocol Last Admin: 02/25/22 05:30 Dose: 2 mg Piperacillin Sod/Tazobactam (Sod 3.375 gm/ Dextrose) 50 mls @ 100 mls/hr IV Q6H [facility]; Protocol Last Infusion: 02/25/22 06:00 Dose: Infused Sodium Chloride (Sodium Chloride 0.9%) 1,000 mls @ 100 mls/hr IV .Q10H [facility] Last Admin: 02/25/22 00:41 Dose: 100 mls/hr Acetaminophen (Ofirmev) 1,000 mg in 100 mls @ 200 mls/hr IV Q6H [facility]; Protocol Last Admin: 02/25/22 06:48 Dose: 200 mls/hr Fat Emulsion Intravenous 250 (ml/ Premix) 250 mls @ 25 mls/hr IV [id number] [facility] Last Infusion: 02/24/22 04:10 Dose: Infused Calcium Gluconate 10 meq/Potassium Chloride 40 meq/Potassium Phosphate 40 meq/Multivitamins/Minerals 10 ml/Amino Acids 2,060.5962 mls @ 85 mls/hr IV Q24H [facility] Last Admin: 02/24/22 14:42 Dose: 85 mls/hr Insulin Human Lispro (Insulin Lispro 1 Unit/0.01 Ml Unit) 0 unit SQ Q6 [facility]; Protocol Last Admin: 02/25/22 05:29 Dose: 2 units Labetalol HCl (Labetalol 5 Mg/Ml Ml) 10 - 20 mg IV Q2HP PRN PRN Reason: Hypertension Lorazepam (Lorazepam 2 Mg/Ml Vial) 1 mg IV Q4-6HP PRN PRN Reason: ANXIETY/SEDATION Last Admin: 02/21/22 23:35 Dose: 1 mg Metoclopramide HCl (Metoclopramide 10 Mg/2 Ml Vial) 10 mg IV Q6 [facility] Last Admin: 02/25/22 05:29 Dose: 10 mg Promethazine HCl (Promethazine 25 Mg/Ml Vial) 12.5 mg IV Q4HP PRN; Protocol PRN Reason: Nausea/Vomiting Last Admin: 02/19/22 21:16 Dose: 12.5 mg Sodium Chloride (0.9 % Sodium Chloride 10 Ml Syringe) 10 ml IV Q12 [facility] Last Admin: 02/24/22 20:03 Dose: 10 ml Sodium Chloride (0.9 % Sodium Chloride 10 Ml Syringe) 10 ml IV UD PRN PRN Reason: FLUSH A/P Narrative A/P Narrative: Assessment and Plans: * Acute hypoxic respiratory failure, post operative: -was on room air but is on o2 post-op, atelectasis on cxr, likely component of volume overload -now back on room air, good diuresis with lasix *PNA: -Initial CXR showing left sided infiltrates suggestive of pna, repeat CXR on 02/21 nearly complete improvement -no PE on CTA, but b/l base infiltrates *Cholelithiasis and choledocholithiasis: s/p lap converted to open cholecystectomy (02/18) -per Surgeon *Microperferations/small bowel leak/hematoma: s/p Ex-lap (02/23) *Post-Op Ileus: *Essential HTN: elevated but better *VINCENT on CKD III: fluctuating with events, but now improving *Anemia: *Metabolic acidosis: improved *Hypokalemia: *Obesity: BMI 40 P: -abx -prn Supplemental oxygen -Incentive spirometry -npo/TF/diet per Surgeon -monitor renal and uop -Electrolyte replacement -cont Amlodipine, added coreg -Follow-up renal function -ppx: SCD, defer to surgeon / ppi Time Spent With Patient Time: Total time spent is greater than 50% in coordination of care (as documented) at patient's floor/unit and/or counseling patient: Total time spent with greater than 50% in coordination of care (as documented) at patient's floor/unit and/or counseling patient:: 25 - 35 minutes QUALITY VTE Deep Vein Thrombosis/Pulmonary Embolism Present on Admission: No
[2022-02-25 07:48] LABS: ALT/SGPT 34 U/L (<40); AST/SGOT 25 U/L (<40); Albumin 2.4 gm/dL (3.2-5.2); Albumin/Globulin Ratio 0.8 (1.0-2.3); Alkaline Phosphatase 85 U/L (39-117); Bilirubin,Direct 0.5 mg/dL (<0.3); Blood Urea Nitrogen 29 mg/dL (8-23); Calcium 7.9 mg/dL (8.6-10.4); Carbon Dioxide 28 mmol/L (22-30); Chloride 107 mmol/L (96-108); Globulin 3.1 gm/dL (2.2-3.7); Glomerular Filtration Rate 59; Glucose 169 mg/dL (70-105); Lactate Dehydrogenase 268 U/L (135-225); Phosphorous 2.4 mg/dL (2.5-4.5); Triglycerides 191 mg/dL (<150); Uric Acid 4.4 mg/dL (2.5-8.0)
[2022-02-25] MEDS: CARVEDILOL 6.25 MG TABLET PO SCH (08:34)
[2022-02-25] MEDS: amLODIPine 5 MG TABLET PO SCH (08:34)
[2022-02-25] MEDS ORDERED: MVI IV SCH ×2 (08:45→15:00)
[2022-02-25] MEDS ORDERED: POTASSIUM PHOSPHATE IV SCH ×2 (08:45→15:00)
[2022-02-25] MEDS ORDERED: CALCIUM GLUCONATE IV SCH ×2 (08:45→15:00)
[2022-02-25] MEDS ORDERED: [UNRECOGNIZED DRUG - OTHER] IV SCH ×2 (08:45→15:00)
[2022-02-25] MEDS ORDERED: POTASSIUM CHLORIDE IV SCH ×2 (08:45→15:00)
[2022-02-25] MEDS ORDERED: POTASSIUM CHLORIDE 40 MEQ in DEXTROSE 5% IN WATER 250 ML IV SCH (09:00)
[2022-02-25] MEDS: 0.9 % SODIUM CHLORIDE 10 ML SYRINGE IV SCH ×2 (09:15→22:24)
[2022-02-25] MEDS: hydrALAZINE 20 MG/ML VIAL IV PRN ×2 (10:30→17:24)
[2022-02-25] MEDS: LORazepam 2 MG/ML VIAL IV PRN ×2 (12:05→21:18)
[2022-02-25] MEDS: IPRATROPIUM/ALBUTEROL 3 ML AMPUL.NEB NEB PRN ×2 (12:43→18:06)
[2022-02-25] MEDS: LABETALOL 5 MG/ML ML IV PRN (14:05)
--- NOTE | 2022-02-25 15:31 | General Surgery Progress Note ---
SUBJECTIVE Subjective Patient information: Note initiated : 02/25/22 at 3:24 pm Service Date, if different from initiated Date: [] Patient: Jonas Noble 71 y/o M admitted on 02/18/22 for bowel obstruction- Cholelithiasis. Chief Complaint: [] Principal diagnosis: Small bowel microperforation Interval history: Patient is stable. He had severe nightmares last evening which caused extreme anxiety. He is much calmer at this time. Vital signs have been stable and he is afebrile. He has no respiratory difficulty. There is minimal bloody drainage in his TREVER and no bilious drainage. He has had flatus multiple times. He denies nausea. White blood count 12.5, hemoglobin 8.9 and hematocrit 27.8, potassium 3.1, BUN 29, creatinine 1.2, phosphorus 2.4; LFTs are normal. Constitutional Vitals: Vital Signs Temp Pulse Resp BP Pulse Ox O2 Del Method O2 Flow Rate 98.9 F 87 16 182/66 97 0 02/25/22 13:36 02/25/22 14:12 02/25/22 12:54 02/25/22 14:01 02/25/22 14:12 02/25/22 12:54 02/25/22 07:09 Period Temp Pulse Resp BP Sys/Maza Pulse Ox O2 Del Method O2 Flow Rate Last 24 Hr 97.7 F-98.9 F 61-99 13-32 115-182/49-95 90-100 Nasal Cannula- Room Air 0-3 Intake and Output 02/25/22 02/25/22 02/25/22 05:59 13:59 21:59 Intake Total 1150 1300 270 Output Total 1795 1205 Balance -645 95 270 Weight 296 lb 1 oz Patient Weight 02/26/22 05:59 Weight 296 lb 1 oz Intake & Output: Intake & Output 02/25/22 02/25/22 02/25/22 05:59 13:59 21:59 Intake Total 1150 1300 270 Output Total 1795 1205 Balance -645 95 270 Weight 296 lb 1 oz Intake: IV 1150 1300 270 Sodium Chloride 0.9% 1,000 ml @ 1000 1000 100 mls/hr IV .Q10H [facility] Rx#: [id number] Zosyn 3.375 gm In Dextrose 5% 50 100 in Water 50 ml @ 100 mls/hr IV Q6H [facility] Rx#:[id number] Potassium Chloride 40 Meq In 270 Dextrose 5% in Water 250 ml @ 67.5 mls/hr IV 0900 [facility] Rx#: [id number] Output: Gastric Drainage 400 Left Nare 400 Drainage 10 Medial Abdomen Woundvac 10 Drainage 35 Left Abdomen TREVER Drain 15 Medial Abdomen TREVER Drain 10 Right Abdomen 10 Urine Catheter Amount 1350 1205 Other: Urine Appearance Sediment Clear Uretheral (Rg) Clear Clear Urine Color Light Paige Bright Yellow Uretheral (Rg) Yellow Yellow Pale Urine Odor Normal Normal Uretheral (Rg) Normal Normal General appearance: cooperative, no acute distress and obese Eye Eye exam: Present EOMI and PERRL Pupils: Present normal accommodation ENT ENT exam: Present mucous membranes moist and normal oropharynx Neck Neck exam: Present normal inspection; Absent tenderness Respiratory Respiratory exam: Present normal respiratory exam and CTAB Cardiovascular Cardiovascular exam: Present normal rate and rhythm, RRR, +S1 and +S2; Absent JVD GI/Abdominal GI/Abdominal exam: Present normal bowel sounds, soft (Abdominal wall is much sof ter) and distended; Absent hernia Extremities Exam Extremities exam: Present pedal edema and neurovascular intact Neurological Exam Neurological exam: Present oriented X3 and reflexes normal Psychiatric Psychiatric exam: Present anxious A/P Assessment and plan (1) Anxiety disorder due to general medical condition with panic attack: Status: Acute (2) Small bowel perforation: Status: Acute (3) Postoperative ileus: Status: Acute (4) Postoperative haemorrhage: Status: Acute Plan Continue present therapy We will probably discontinue nasogastric tube in the morning Time Spent With Patient Time: Total time spent is greater than 50% in coordination of care (as documented) at patient's floor/unit and/or counseling patient:
[2022-02-25] MEDS: FAT EMULSION 20% 250 ML in PREMIX 1 BAG IV SCH (15:57)
[2022-02-25] MEDS: CARVEDILOL 12.5 MG TABLET PO SCH (16:28)
[2022-02-25] MEDS: SCOPOLAMINE 1 PATCH PATCH TOPICAL SCH (16:28)
[2022-02-25] MEDS: SUCRETS LOZENGE PO PRN (16:28)
[2022-02-26] MEDS: PIPERACILLIN SODIUM/TAZOBACTAM 3.375 GM in DEXTROSE 5% IN WATER 50 ML IV SCH ×4 (01:00→17:05)
[2022-02-26] MEDS: ACETAMINOPHEN 1,000 MG/100 ML BAG IV SCH ×4 (01:01→19:48)
[2022-02-26] MEDS: 0.9 % SODIUM CHLORIDE 10 ML SYRINGE IV SCH ×5 (01:03→22:45)
[2022-02-26] MEDS: METOCLOPRAMIDE 10 MG/2 ML VIAL IV SCH ×4 (01:05→17:09)
[2022-02-26] MEDS: INSULIN LISPRO 1 UNIT/0.01 ML UNIT SQ SCH ×4 (01:05→17:10)
[2022-02-26] MEDS: hydrALAZINE 20 MG/ML VIAL IV PRN ×2 (01:18→17:05)
[2022-02-26] MEDS: SUCRETS LOZENGE PO PRN ×3 (01:31→13:17)
[2022-02-26] MEDS: LABETALOL 5 MG/ML ML IV PRN (01:51)
[2022-02-26] MEDS: LORazepam 2 MG/ML VIAL IV PRN ×2 (02:54→08:17)
[2022-02-26] MEDS: HYDROmorphone 1 MG/ML SYRINGE IV PRN ×5 (05:13→22:45)
[2022-02-26] MEDS: 0.9 % SODIUM CHLORIDE 10 ML SYRINGE IV PRN (05:18)
[2022-02-26 06:48] LABS: Basophils # (Auto) 0.08 K/mcL (0.00-0.30); Basophils % (Auto) 0.5 % (0.0-2.0); Eosinophils # (Auto) 0.25 K/mcL (0.00-0.70); Eosinophils % (Auto) 1.7 % (0.0-7.0); Hematocrit 28.6 % (40.1-51.0); Hemoglobin 9.2 g/dL (13.7-17.5); Lymphocytes # (Auto) 2.27 K/mcL (1.50-4.80); Lymphocytes % (Auto) 15.1 % (15.5-49.0); Mean Corpuscular HGB Conc 32.2 g/dL (31.0-36.0); Mean Platelet Volume 9.9 fL (8.8-12.5); Monocytes # (Auto) 1.24 K/mcL (0.10-0.90); Monocytes % (Auto) 8.2 % (1.0-12.0); Neutrophils % (Auto) 66.4 % (38.0-78.0); Platelet Count 359 K/mcL (140-440); RBC 3.25 M/mcL (4.63-6.08); Red Cell Distribution Width 14.6 % (11.5-14.5); WBC 15.1 K/mcL (4.5-11.0)
[2022-02-26 07:19] LABS: Prealbumin 16.2 mg/dL (20.0-40.0)
[2022-02-26] MEDS: CARVEDILOL 12.5 MG TABLET PO SCH ×2 (07:20→17:05)
--- NOTE | 2022-02-26 07:37 | Internal Med Progress Note ---
SUBJECTIVE Subjective Patient information: Note initiated : 02/26/22 at 7:34 am Service Date, if different from initiated Date: [] Patient: Jonas Noble 71 y/o M admitted on 02/18/22 for bowel obstruction- Cholelithiasis. Chief Complaint: [] Principal diagnosis: Small bowel microperforation Interval history: Patient is a 71 years old gentleman history of essential hypertensions, chronic kidney disease stage III, BPH, presenting with postprandial abdominal pain on February 15, 2022. CT of the abdomen at admission showing dilated common bile duct and intrahepatic ducts with a 6 mm distal common bile duct stone. He also has multiple stones in the gallbladder. Emergent ERCP was performed general surgeon Dr. Stephens performed laparoscopic converted to open cholecystectomy on Friday, February 18, 2022. Patient is tolerated the surgery relatively okay. This morning at shift change around 7 AM, patient was found by his nurse to be tachycardic and tachypneic with rate of breathing and heart rate in the 30s and 140s, respectively. Patient is also showing labored breathing. Rapid response was called and patient was transferred to PCU for higher level of care. Patient is currently is complaining of increased shortness of breath. Abdominal pain is being adequately controlled with IV Tylenol and Dilaudid. Emergent chest x- ray showing acute left-sided infiltrates consistent with pneumonia. Abdominal CT showing bowel gas pattern unremarkable. And no evidence of mechanical small bowel obstructions. CT angiogram chest and abdomen pending at the moment. 02/21: CTA chest: negative of PE, but shows bilateral lung bases infiltrates suggestive of pneumonia. Afebrile overnight. Patient is currently on 1.5-2L/min nasal cannula oxygen. Cultures no growth to date. WBC down trended 17.8-->13.8. Serum Cr worsen from 1.5-->2.4. Patient is complaining of 3 out of 10 abdominal pain. He is having much improved degree of shortness of breath. He denies any cough or wheezing. He denies any fever, chills, or diaphoresis. He denies any nausea or vomiting. NG tube still in place. The patient still currently on n.p.o. status. Patient has not passed any bowel movement yet. Continue Zosyn while monitoring culture results. Repeat chest x-ray today. Continue IV fluid, avoid nephrotoxic agents, and repeat CMP in the morning to trend kidney functions. Rest of the surgical management as per primary team. 02/22: Afebrile overnight. Patient is currently on room air. Blood culture no growth today. Repeat chest x-ray from yesterday showing nearly complete improvement of the infiltrates seen from previous exams. Patient's degree of shortness of breath has greatly improved. Denies any chest pain. Denies any coughing or respiratory wheezings. Denies any fever chills or diaphoresis. He is still made n.p.o. status as per general surgeon Dr. Stephens. 02/23 Patient found to have drainage from incision site this morning with tachycardia. Patient was emergently taken back to the OR found to have small bowel leak and abdominal wall cellulitis with microperforation of the small bowel x3 with loc alized peritonitis. Patient transferred back to PCU after procedure. Patient had ex lap with closur e of Microbrush x3 evacuation of hematoma. Wound VAC placed. Has cough and some shortness of breath. 02/24 Patient feeling much better today. Starting to pass gas. Good urine output with Lasix yesterday. Liter nasal cannula and likely to come off on room air. TREVER drains in place. Renal function stable. 02/25 Patient passing gas no bowel movement yet. No other new complaints other than he said he had a severe nightmare last night and poor sleep but otherwise no new complaints. Patient is on room air. Mild hypokalemia. Renal function looks good. 02/26 No overnight event or new complaints. However he is quite sleepy this morning and per nursing notes he did not sleep well last night. Patient had a bump in his leukocytosis today. Potassium is low and will be replaced. No function looks good today. Other actions per surgery. Review of Systems: denies headache/fever/chills/nausea/vomiting/chest pain/diarrhea. Otherwise see above. Constitutional Vitals: Vital Signs Temp Pulse Resp BP Pulse Ox O2 Del Method O2 Flow Rate 98.9 F 75 24 H 143/54 97 2 02/26/22 04:00 02/26/22 04:00 02/26/22 04:00 02/26/22 04:00 02/26/22 04:00 02/26/22 04:00 02/26/22 00:00 Period Temp Pulse Resp BP Sys/Maza Pulse Ox O2 Del Method O2 Flow Rate Last 24 Hr 97.7 F-100.1 F 61-102 14-28 117-184/54-100 92-100 Nasal Cannula-Room Air 1-2 Intake and Output 02/25/22 02/26/22 02/26/22 21:59 05:59 13:59 Intake Total 2597.5962 500 50 Output Total 1025 2085 Balance 1572.5962 -1585 50 Weight 131.769 kg Intake & Output: Intake & Output 02/25/22 02/26/22 02/26/22 21:59 05:59 13:59 Intake Total 2597.5962 500 50 Output Total 1025 2085 Balance 1572.5962 -1585 50 Weight 131.769 kg Intake: IV 2597.5962 500 50 Sodium Chloride 0.9% 1,000 ml @ 217 40 mls/hr IV .Q24H [facility] Rx#: [id number] Calcium Gluconate 10 Meq 2060.5962 Potassium Chloride 40 Meq Potassium Phosphate 40 Meq Infuvite Adult 10 ml In Clinimix 5%-20% Solution 2,000 ml @ 85 mls/hr IV Q24H [facility] Rx#: [id number] Intralipid 20% 250 ml In Premix 250 1 Bag @ 25 mls/hr IV MoWeFr@ 1600 [facility] Rx#:[id number] Zosyn 3.375 gm In Dextrose 5% 50 50 50 in Water 50 ml @ 100 mls/hr IV Q6H [facility] Rx#:[id number] Potassium Chloride 40 Meq In 270 Dextrose 5% in Water 250 ml @ 67.5 mls/hr IV 0900 [facility] Rx#: [id number] Output: Gastric Drainage 720 400 Left Nare 720 400 Drainage 35 Left Abdomen TREVER Drain 10 Medial Abdomen TREVER Drain 10 Right Abdomen 15 Drainage 40 150 Left Abdomen TREVER Drain 15 Medial Abdomen TREVER Drain 20 Medial Abdomen Woundvac 150 Right Abdomen 5 Urine Catheter Amount 265 1500 Other: Urine Appearance Clear Cloudy Uretheral (Rg) Clear Urine Color Dark Yellow Dark Paige Uretheral (Rg) Dark Yellow Urine Odor Normal Uretheral (Rg) Normal Exam: General: Sleepy no acute Distress, obese Eyes/N/T: EOMI, Head/Neck: neck supple, CV: RRR, No murmurs, Pulm: Clear b/l, no wheezing/rhonchi/rales, mild upper airway rhonchi Abd: Distended, +BS x4, TREVER drains and wound VAC in place Ext: no clubbing/cyanosis, b/l LE trace-1+ edema improved Neuro: Sleepy no focal deficits, moves all extremities, Skin: warm/dry OBJ DATA Labs CBC & Chem 7: 02/26/22 05:07 02/26/22 05:07 Labs: Abnormal Lab Results 02/26/22 02/26/22 02/25/22 05:07 05:07 05:39 WBC 15.1 H RBC 3.25 L Hgb 9.2 L Hct 28.6 L RDW 14.6 H Immature Gran % (Auto) 8.1 H Lymph % (Auto) 15.1 L Lymph # (Auto) [place] # (Auto) 1.24 H Immature Gran # 1.22 H Absolute Neutrophils 10.02 H POC pO2 POC HCO3 POC ABG Base Excess Hgb O2 Saturation Potassium 3.1 L Carbon Dioxide Anion Gap 7.0 L BUN 29 H Creatinine Glucose 169 H Calcium 7.9 L Phosphorus 2.4 L Magnesium Total Bilirubin Direct Bilirubin 0.5 H GGT 77 H ALT Lactate Dehydrogenase 268 H Total Protein 5.5 L Albumin 2.4 L Albumin/Globulin Ratio 0.8 L Prealbumin 16.2 L Triglycerides 191 H 02/25/22 02/24/22 02/24/22 05:39 05:27 05:27 WBC 12.5 H 12.9 H RBC 3.07 L 3.14 L Hgb 8.9 L 9.1 L Hct 27.8 L 28.3 L RDW 15.0 H 15.0 H Immature Gran % (Auto) 5.3 H 4.9 H Lymph % (Auto) 8.5 L Lymph # (Auto) 1.10 L [place] # (Auto) 1.12 H 1.27 H Immature Gran # 0.66 H 0.63 H Absolute Neutrophils 8.30 H 9.84 H POC pO2 POC HCO3 POC ABG Base Excess Hgb O2 Saturation Potassium Carbon Dioxide Anion Gap BUN 25 H Creatinine 1.4 H Glucose 167 H Calcium 7.8 L Phosphorus Magnesium 2.6 H Total Bilirubin 1.1 H Direct Bilirubin 0.6 H GGT 79 H ALT Lactate Dehydrogenase 299 H Total Protein 5.5 L Albumin 2.3 L Albumin/Globulin Ratio 0.7 L Prealbumin Triglycerides 152 H 02/23/22 02/23/22 02/23/22 14:28 14:27 14:10 WBC RBC Hgb Hct RDW Immature Gran % (Auto) Lymph % (Auto) Lymph # (Auto) [place] # (Auto) Immature Gran # Absolute Neutrophils POC pO2 71 L POC HCO3 21.7 L POC ABG Base Excess -4.0 L Hgb O2 Saturation 93.0 L Potassium Carbon Dioxide 21 L Anion Gap BUN 24 H Creatinine 1.3 H Glucose 150 H Calcium 8.0 L Phosphorus Magnesium 2.9 H Total Bilirubin 1.5 H Direct Bilirubin 1.0 H GGT 100 H ALT 48 H Lactate Dehydrogenase 327 H Total Protein Albumin 2.4 L Albumin/Globulin Ratio 0.7 L Prealbumin 8.5 L Triglycerides 166 H Meds: Medications Albuterol/Ipratropium (Ipratropium/Albuterol 3 Ml Ampul.Neb) 3 ml NEB Q4HP PRN PRN Reason: Shortness Of Breath Last Admin: 02/25/22 18:06 Dose: 3 ml Amlodipine Besylate (Amlodipine 5 Mg Tablet) 5 mg PO DAILY [facility] Last Admin: 02/25/22 08:34 Dose: 5 mg Carvedilol (Carvedilol 12.5 Mg Tablet) 12.5 mg PO BIDCC [facility] Last Admin: 02/26/22 07:20 Dose: 12.5 mg Dextrose (Dextrose 50% 50 Ml Syringe) 25 - 50 ml IV UD PRN PRN Reason: Hypoglycemia Diagnostic Test (Pha) (Accu-Chek 1 Each Strip) 1 each FS Q6 [facility] Last Admin: 02/26/22 05:17 Dose: 1 each Hydralazine HCl (Hydralazine 20 Mg/Ml Vial) 20 mg IV Q4HP PRN PRN Reason: Hypertension Last Admin: 02/26/22 01:18 Dose: 20 mg Hydromorphone HCl (Hydromorphone 1 Mg/Ml Syringe) 0 mg IV Q2HP PRN; Protocol PRN Reason: Per Pain Protocol Last Admin: 02/26/22 05:13 Dose: 1 mg Piperacillin Sod/Tazobactam (Sod 3.375 gm/ Dextrose) 50 mls @ 100 mls/hr IV Q6H [facility]; Protocol Last Infusion: 02/26/22 06:11 Dose: Infused Acetaminophen (Ofirmev) 1,000 mg in 100 mls @ 200 mls/hr IV Q6H [facility]; Protocol Last Admin: 02/26/22 07:21 Dose: 200 mls/hr Fat Emulsion Intravenous 250 (ml/ Premix) 250 mls @ 25 mls/hr IV MoWeFr@1600 [facility] Last Infusion: 02/26/22 02:20 Dose: Infused Calcium Gluconate 10 meq/Potassium Chloride 40 meq/Potassium Phosphate 40 meq/Multivitamins/Minerals 10 ml/Magnesium Sulfate 8.12 meq/Amino Acids 2,062.5962 mls @ 85 mls/hr IV DAILY@1500 [facility] Last Admin: 02/25/22 15:00 Dose: 85 mls/hr Sodium Chloride (Sodium Chloride 0.9%) 1,000 mls @ 40 mls/hr IV .Q24H [facility] Last Admin: 02/25/22 19:42 Dose: 40 mls/hr Insulin Human Lispro (Insulin Lispro 1 Unit/0.01 Ml Unit) 0 unit SQ Q6 [facility]; Protocol Last Admin: 02/26/22 05:17 Dose: 4 units Labetalol HCl (Labetalol 5 Mg/Ml Ml) 10 - 20 mg IV Q2HP PRN PRN Reason: Hypertension Last Admin: 02/26/22 01:51 Dose: 20 mg Lorazepam (Lorazepam 2 Mg/Ml Vial) 1 mg IV Q4-6HP PRN PRN Reason: ANXIETY/SEDATION Last Admin: 02/26/22 02:54 Dose: 1 mg Metoclopramide HCl (Metoclopramide 10 Mg/2 Ml Vial) 10 mg IV Q6 [facility] Last Admin: 02/26/22 05:14 Dose: 10 mg Promethazine HCl (Promethazine 25 Mg/Ml Vial) 12.5 mg IV Q4HP PRN; Protocol PRN Reason: Nausea/Vomiting Last Admin: 02/19/22 21:16 Dose: 12.5 mg Scopolamine (Scopolamine 1 Patch Patch) 1 patch TOPICAL Q72H [facility] Last Admin: 02/25/22 16:28 Dose: 1 patch Sodium Chloride (0.9 % Sodium Chloride 10 Ml Syringe) 10 ml IV Q12 [facility] Last Admin: 02/26/22 05:07 Dose: 10 ml Sodium Chloride (0.9 % Sodium Chloride 10 Ml Syringe) 10 ml IV UD PRN PRN Reason: FLUSH Last Admin: 02/26/22 05:18 Dose: 10 ml A/P Narrative A/P Narrative: Assessment and Plans: * Acute hypoxic respiratory failure, post operative: -was on room air but is on o2 post-op, atelectasis on cxr, likely component of volume overload -now back on room air with occasional o2 supp, good diuresis with lasix *PNA: -Initial CXR showing left sided infiltrates suggestive of pna, repeat CXR on 02/21 nearly complete improvement -no PE on CTA, but b/l base infiltrates *Cholelithiasis and choledocholithiasis: s/p lap converted to open cholecystectomy (02/18) -per Surgeon *Microperferations/small bowel leak/hematoma: s/p Ex-lap (02/23) *Post-Op Ileus: *Essential HTN: elevated but improving *VINCENT on CKD III: fluctuating with events, but now improving *Anemia: *Metabolic acidosis: improved *Hypokalemia: *Obesity: BMI 40 P: -abx -prn Supplemental oxygen -Incentive spirometry -npo/TF/diet per Surgeon -monitor renal and uop -Electrolyte replacement -cont Amlodipine, added coreg, monitor BP -Follow-up renal function -ppx: SCD, defer to surgeon / ppi Time Spent With Patient Time: Total time spent is greater than 50% in coordination of care (as documented) at patient's floor/unit and/or counseling patient: Total time spent with greater than 50% in coordination of care (as documented) at patient's floor/unit and/or counseling patient:: 25 - 35 minutes QUALITY VTE Deep Vein Thrombosis/Pulmonary Embolism Present on Admission: No
[2022-02-26 07:49] LABS: ALT/SGPT 32 U/L (<40); AST/SGOT 23 U/L (<40); Albumin 2.6 gm/dL (3.2-5.2); Albumin/Globulin Ratio 0.8 (1.0-2.3); Alkaline Phosphatase 90 U/L (39-117); Bilirubin,Direct 0.4 mg/dL (<0.3); Bilirubin,Total 0.9 mg/dL (0.1-1.0); Blood Urea Nitrogen 25 mg/dL (8-23); Calcium 8.3 mg/dL (8.6-10.4); Carbon Dioxide 24 mmol/L (22-30); Chloride 108 mmol/L (96-108); Globulin 3.2 gm/dL (2.2-3.7); Glomerular Filtration Rate 74; Glucose 180 mg/dL (70-105); Lactate Dehydrogenase 281 U/L (135-225); Triglycerides 171 mg/dL (<150); Uric Acid 3.1 mg/dL (2.5-8.0)
[2022-02-26] MEDS ORDERED: POTASSIUM CHLORIDE 20 MEQ in DEXTROSE 5% IN WATER 250 ML IV ONE (08:02)
[2022-02-26] MEDS: amLODIPine 5 MG TABLET PO SCH (08:17)
[2022-02-26] MEDS ORDERED: POTASSIUM CHLORIDE 40 MEQ in DEXTROSE 5% IN WATER 250 ML IV ONE ×2 (08:30→12:30)
[2022-02-26] MEDS: IPRATROPIUM/ALBUTEROL 3 ML AMPUL.NEB NEB PRN (11:38)
[2022-02-26] MEDS ORDERED: POTASSIUM PHOSPHATE 40 MEQ in DEXTROSE 5% IN WATER 500 ML IV ONE (12:30)
--- NOTE | 2022-02-26 14:00 | General Surgery Progress Note ---
SUBJECTIVE Subjective Patient information: Note initiated : 02/26/22 at 1:56 pm Service Date, if different from initiated Date: [] Patient: Jonas Noble 71 y/o M admitted on 02/18/22 for bowel obstruction- Cholelithiasis. Chief Complaint: [] Principal diagnosis: Small bowel microperforation Interval history: Patient continues to improve. He has no respiratory difficulty. He does not have any bilious output through his drains. He has had flatus and at least 3 bowel movements. His abdominal pain has improved. Constitutional Vitals: Vital Signs Temp Pulse Resp BP Pulse Ox O2 Del Method O2 Flow Rate 97.8 F 86 14 154/94 97 1 02/26/22 12:00 02/26/22 12:00 02/26/22 12:00 02/26/22 12:00 02/26/22 12:00 02/26/22 12:00 02/26/22 10:00 Period Temp Pulse Resp BP Sys/Maza Pulse Ox O2 Del Method O2 Flow Rate Last 24 Hr 97.8 F-100.1 F 69-102 14-24 117-184/54-100 95-100 Nasal Cannula-Room Air 1-2 Intake and Output 02/25/22 02/26/22 02/26/22 21:59 05:59 13:59 Intake Total 2597.5962 500 470 Output Total 1025 2085 700 Balance 1572.5962 -1585 -230 Weight 290 lb 8 oz Intake & Output: Intake & Output 02/25/22 02/26/22 02/26/22 21:59 05:59 13:59 Intake Total 2597.5962 500 470 Output Total 1025 2085 700 Balance 1572.5962 -1585 -230 Weight 290 lb 8 oz Intake: IV 2597.5962 500 470 Sodium Chloride 0.9% 1,000 ml @ 217 40 mls/hr IV .Q24H [facility] Rx#: [id number] Calcium Gluconate 10 Meq 2060.5962 Potassium Chloride 40 Meq Potassium Phosphate 40 Meq Infuvite Adult 10 ml In Clinimix 5%-20% Solution 2,000 ml @ 85 mls/hr IV Q24H [facility] Rx#: [id number] Intralipid 20% 250 ml In Premix 250 1 Bag @ 25 mls/hr IV MoWeFr@ 1600 [facility] Rx#:[id number] Zosyn 3.375 gm In Dextrose 5% 50 50 100 in Water 50 ml @ 100 mls/hr IV Q6H [facility] Rx#:[id number] Potassium Chloride 40 Meq In 270 270 Dextrose 5% in Water 250 ml @ 67.5 mls/hr IV ONCE ONE Rx#: [id number] Tube Feeding 0 Output: Gastric Drainage 720 400 200 Left Nare 720 400 200 Drainage 35 Left Abdomen TREVER Drain 10 Medial Abdomen TREVER Drain 10 Right Abdomen 15 Drainage 40 150 Left Abdomen TREVER Drain 15 Medial Abdomen TREVER Drain 20 Medial Abdomen Woundvac 150 Right Abdomen 5 Urine Catheter Amount 265 1500 500 Other: Urine Appearance Clear Cloudy Clear Uretheral (Rg) Clear Clear Urine Color Dark Yellow Dark Paige Dark Yellow Uretheral (Rg) Dark Yellow Yellow Urine Odor Normal Normal Uretheral (Rg) Normal Normal Stool Size Moderate Stool Color Brown Stool Consistency Loose # of times incontinent of 1 Bowels ENT ENT exam: Present normal external ear exam and normal oropharynx Neck Neck exam: Present full ROM and normal inspection Respiratory Respiratory exam: Present normal respiratory exam; Absent rales or wheezes Cardiovascular Cardiovascular exam: Present normal rate and rhythm, RRR, +S1 and +S2; Absent JVD GI/Abdominal GI/Abdominal exam: Present normal bowel sounds and distended (Distention is much improved); Absent tenderness (Mild incisional tenderness) Additional comments: Minimal drainage from TREVER drains Extremities Exam Extremities exam: Present normal inspection and neurovascular intact Neurological Exam Neurological exam: Present oriented X3 Psychiatric Psychiatric exam: Present normal affect and normal mood A/P Assessment and plan (1) Small bowel perforation: Status: Acute (2) Postoperative ileus: Status: Acute (3) Postoperative haemorrhage: Status: Acute (4) Cholelithiasis with choledocholithiasis: Status: Acute Plan Discontinue nasogastric tube Discontinue Rg cath Full liquid diet Change wound VAC dressing Time Spent With Patient Time: Total time spent is greater than 50% in coordination of care (as documented) at patient's floor/unit and/or counseling patient:
[2022-02-26] MEDS: POTASSIUM PHOSPHATE IV SCH (15:39)
[2022-02-26] MEDS: MVI IV SCH (15:39)
[2022-02-26] MEDS: [UNRECOGNIZED DRUG - OTHER] IV SCH (15:39)
[2022-02-26] MEDS: POTASSIUM CHLORIDE IV SCH (15:39)
[2022-02-26] MEDS: CALCIUM GLUCONATE IV SCH (15:39)
[2022-02-26] MEDS: 0.9 % SODIUM CHLORIDE 1,000 ML IV SCH ×2 (17:30→20:40)
[2022-02-27] MEDS: INSULIN LISPRO 1 UNIT/0.01 ML UNIT SQ SCH ×5 (00:49→23:42)
[2022-02-27] MEDS: PIPERACILLIN SODIUM/TAZOBACTAM 3.375 GM in DEXTROSE 5% IN WATER 50 ML IV SCH ×5 (00:49→23:43)
[2022-02-27] MEDS: METOCLOPRAMIDE 10 MG/2 ML VIAL IV SCH ×5 (00:49→23:42)
[2022-02-27] MEDS: ACETAMINOPHEN 1,000 MG/100 ML BAG IV SCH ×4 (00:49→18:37)
[2022-02-27] MEDS: HYDROmorphone 1 MG/ML SYRINGE IV PRN ×6 (01:19→21:50)
[2022-02-27] MEDS: LABETALOL 5 MG/ML ML IV PRN ×2 (01:28→23:42)
[2022-02-27] MEDS: LORazepam 2 MG/ML VIAL IV PRN ×3 (05:43→18:04)
[2022-02-27] MEDS: SUCRETS LOZENGE PO PRN ×3 (06:05→14:39)
[2022-02-27 06:51] LABS: Basophils % (Auto) 0.6 % (0.0-2.0); Eosinophils % (Auto) 2.4 % (0.0-7.0); Hematocrit 30.6 % (40.1-51.0); Hemoglobin 9.8 g/dL (13.7-17.5); Lymphocytes # (Auto) 2.78 K/mcL (1.50-4.80); Lymphocytes % (Auto) 16.5 % (15.5-49.0); Mean Cell Volume 88.4 fL (80.0-100.0); Mean Platelet Volume 9.8 fL (8.8-12.5); Monocytes # (Auto) 1.14 K/mcL (0.10-0.90); Monocytes % (Auto) 6.8 % (1.0-12.0); Neutrophils % (Auto) 67.4 % (38.0-78.0); Platelet Count 429 K/mcL (140-440); RBC 3.46 M/mcL (4.63-6.08); Red Cell Distribution Width 14.5 % (11.5-14.5); WBC 16.9 K/mcL (4.5-11.0)
[2022-02-27] MEDS: hydrALAZINE 20 MG/ML VIAL IV PRN ×2 (06:54→21:08)
[2022-02-27 07:16] LABS: Prealbumin 19.2 mg/dL (20.0-40.0)
[2022-02-27 07:17] LABS: ALT/SGPT 36 U/L (<40); AST/SGOT 30 U/L (<40); Albumin 2.8 gm/dL (3.2-5.2); Albumin/Globulin Ratio 0.8 (1.0-2.3); Alkaline Phosphatase 111 U/L (39-117); Bilirubin,Direct 0.4 mg/dL (<0.3); Bilirubin,Total 0.9 mg/dL (0.1-1.0); Blood Urea Nitrogen 21 mg/dL (8-23); Calcium 8.6 mg/dL (8.6-10.4); Carbon Dioxide 25 mmol/L (22-30); Chloride 106 mmol/L (96-108); Globulin 3.6 gm/dL (2.2-3.7); Glomerular Filtration Rate 74; Glucose 172 mg/dL (70-105); Lactate Dehydrogenase 387 U/L (135-225); Phosphorous 3.4 mg/dL (2.5-4.5); Triglycerides 180 mg/dL (<150); Uric Acid 2.7 mg/dL (2.5-8.0)
--- NOTE | 2022-02-27 07:27 | Internal Med Progress Note ---
SUBJECTIVE Subjective Patient information: Note initiated : 02/27/22 at 7:24 am Service Date, if different from initiated Date: [] Patient: Jonas Noble 71 y/o M admitted on 02/18/22 for bowel obstruction- Cholelithiasis. Chief Complaint: [] Principal diagnosis: Small bowel microperforation Interval history: Patient is a 71 years old gentleman history of essential hypertensions, chronic kidney disease stage III, BPH, presenting with postprandial abdominal pain on February 15, 2022. CT of the abdomen at admission showing dilated common bile duct and intrahepatic ducts with a 6 mm distal common bile duct stone. He also has multiple stones in the gallbladder. Emergent ERCP was performed general surgeon Dr. Stephens performed laparoscopic converted to open cholecystectomy on Friday, February 18, 2022. Patient is tolerated the surgery relatively okay. This morning at shift change around 7 AM, patient was found by his nurse to be tachycardic and tachypneic with rate of breathing and heart rate in the 30s and 140s, respectively. Patient is also showing labored breathing. Rapid response was called and patient was transferred to PCU for higher level of care. Patient is currently is complaining of increased shortness of breath. Abdominal pain is being adequately controlled with IV Tylenol and Dilaudid. Emergent chest x- ray showing acute left-sided infiltrates consistent with pneumonia. Abdominal CT showing bowel gas pattern unremarkable. And no evidence of mechanical small bowel obstructions. CT angiogram chest and abdomen pending at the moment. 02/21: CTA chest: negative of PE, but shows bilateral lung bases infiltrates suggestive of pneumonia. Afebrile overnight. Patient is currently on 1.5-2L/min nasal cannula oxygen. Cultures no growth to date. WBC down trended 17.8-->13.8. Serum Cr worsen from 1.5-->2.4. Patient is complaining of 3 out of 10 abdominal pain. He is having much improved degree of shortness of breath. He denies any cough or wheezing. He denies any fever, chills, or diaphoresis. He denies any nausea or vomiting. NG tube still in place. The patient still currently on n.p.o. status. Patient has not passed any bowel movement yet. Continue Zosyn while monitoring culture results. Repeat chest x-ray today. Continue IV fluid, avoid nephrotoxic agents, and repeat CMP in the morning to trend kidney functions. Rest of the surgical management as per primary team. 02/22: Afebrile overnight. Patient is currently on room air. Blood culture no growth today. Repeat chest x-ray from yesterday showing nearly complete improvement of the infiltrates seen from previous exams. Patient's degree of shortness of breath has greatly improved. Denies any chest pain. Denies any coughing or respiratory wheezings. Denies any fever chills or diaphoresis. He is still made n.p.o. status as per general surgeon Dr. Stephens. 02/23 Patient found to have drainage from incision site this morning with tachycardia. Patient was emergently taken back to the OR found to have small bowel leak and abdominal wall cellulitis with microperforation of the small bowel x3 with loc alized peritonitis. Patient transferred back to PCU after procedure. Patient had ex lap with closur e of Microbrush x3 evacuation of hematoma. Wound VAC placed. Has cough and some shortness of breath. 02/24 Patient feeling much better today. Starting to pass gas. Good urine output with Lasix yesterday. Liter nasal cannula and likely to come off on room air. TREVER drains in place. Renal function stable. 02/25 Patient passing gas no bowel movement yet. No other new complaints other than he said he had a severe nightmare last night and poor sleep but otherwise no new complaints. Patient is on room air. Mild hypokalemia. Renal function looks good. 02/26 No overnight event or new complaints. However he is quite sleepy this morning and per nursing notes he did not sleep well last night. Patient had a bump in his leukocytosis today. Potassium is low and will be replaced. No function looks good today. Other actions per surgery. 02/27 Patient retaining urine after Rg came out. Patient refusing straight cath. We will give Flomax and continue as needed bladder scans. Patient drowsy this morning does complain of little shortness of breath. Leukocytosis worsened today. Review of Systems: denies headache/fever/chills/nausea/vomiting/chest pain/diarrhea. Otherwise see above. Constitutional Vitals: Vital Signs Temp Pulse Resp BP Pulse Ox O2 Del Method O2 Flow Rate 98.8 F 88 24 H 178/86 98 1 02/27/22 06:53 02/27/22 06:53 02/27/22 06:53 02/27/22 06:53 02/27/22 06:53 02/27/22 06:53 02/26/22 10:00 Period Temp Pulse Resp BP Sys/Maza Pulse Ox O2 Del Method O2 Flow Rate Last 24 Hr 97.4 F-98.9 F 74-102 14-24 134-189/63-94 96-99 Nasal Cannula- Room Air 1 Intake and Output 02/26/22 02/27/22 02/27/22 22:59 05:59 13:59 Intake Total 150 Output Total Balance 150 Weight Intake & Output: Intake & Output 02/26/22 02/27/22 02/27/22 22:59 05:59 13:59 Intake Total 150 Output Total Balance 150 Weight Intake: IV 150 Sodium Chloride 0.9% 1,000 ml @ 40 mls/hr IV .Q24H [facility] Rx#: [id number] Calcium Gluconate 10 Meq Potassium Chloride 40 Meq Potassium Phosphate 40 Meq Infuvite Adult 10 ml Magnesium Sulfate 8.12 Meq In Clinimix 5% -20% Solution 2,000 ml @ 85 mls /hr IV DAILY@1500 [facility] Rx#: [id number] Zosyn 3.375 gm In Dextrose 5% 50 in Water 50 ml @ 100 mls/hr IV Q6H [facility] Rx#:[id number] Potassium Phosphate 40 Meq In Dextrose 5% in Water 500 ml @ 127.273 mls/hr IV ONCE ONE Rx#: [id number] Oral Output: Drainage Left Abdomen TREVER Drain Medial Abdomen TREVER Drain Medial Abdomen Woundvac Right Abdomen Urine Catheter Amount Void Amount # of times incontinent of urine Urine/Stool Mix Other: Meal Percent of Meal Consumed Feeding Ability Urine Appearance Urine Color Urine Odor Stool Color Stool Consistency # of times incontinent of Bowels Exam: General: Drowsy, no acute Distress, obese Eyes/N/T: EOMI, Head/Neck: neck supple, CV: RRR, No murmurs, Pulm: Clear b/l, no wheezing/rhonchi/rales, Abd: Distended, hypoactiveBS x4, TREVER drains and wound VAC in place Ext: no clubbing/cyanosis, b/l LE trace-1+ edema improved Neuro: Drowsy , no focal deficits, moves all extremities, Skin: warm/dry OBJ DATA Labs CBC & Chem 7: 02/27/22 05:30 02/27/22 05:30 Labs: Abnormal Lab Results 02/27/22 02/27/22 02/26/22 05:30 05:30 05:07 WBC 16.9 H RBC 3.46 L Hgb 9.8 L Hct 30.6 L RDW Immature Gran % (Auto) 6.3 H Lymph % (Auto) Arthur # (Auto) 1.14 H Immature Gran # 1.07 H Absolute Neutrophils 11.39 H Potassium 2.9 L* Anion Gap BUN 25 H Glucose 172 H 180 H Calcium 8.3 L Phosphorus 2.0 L Direct Bilirubin 0.4 H 0.4 H GGT 87 H 82 H Lactate Dehydrogenase 387 H 281 H Total Protein 5.8 L Albumin 2.8 L 2.6 L Albumin/Globulin Ratio 0.8 L 0.8 L Prealbumin 19.2 L 16.2 L Triglycerides 180 H 171 H 02/26/22 02/25/22 02/25/22 05:07 05:39 05:39 WBC 15.1 H 12.5 H RBC 3.25 L 3.07 L Hgb 9.2 L 8.9 L Hct 28.6 L 27.8 L RDW 14.6 H 15.0 H Immature Gran % (Auto) 8.1 H 5.3 H Lymph % (Auto) 15.1 L Arthur # (Auto) 1.24 H 1.12 H Immature Gran # 1.22 H 0.66 H Absolute Neutrophils 10.02 H 8.30 H Potassium 3.1 L Anion Gap 7.0 L BUN 29 H Glucose 169 H Calcium 7.9 L Phosphorus 2.4 L Direct Bilirubin 0.5 H GGT 77 H Lactate Dehydrogenase 268 H Total Protein 5.5 L Albumin 2.4 L Albumin/Globulin Ratio 0.8 L Prealbumin Triglycerides 191 H Meds: Medications Albuterol/Ipratropium (Ipratropium/Albuterol 3 Ml Ampul.Neb) 3 ml NEB Q4HP PRN PRN Reason: Shortness Of Breath Last Admin: 02/26/22 11:38 Dose: 3 ml Amlodipine Besylate (Amlodipine 5 Mg Tablet) 5 mg PO DAILY [facility] Last Admin: 02/26/22 08:17 Dose: 5 mg Carvedilol (Carvedilol 12.5 Mg Tablet) 12.5 mg PO BIDCC [facility] Last Admin: 02/26/22 17:05 Dose: 12.5 mg Dextrose (Dextrose 50% 50 Ml Syringe) 25 - 50 ml IV UD PRN PRN Reason: Hypoglycemia Diagnostic Test (Pha) (Accu-Chek 1 Each Strip) 1 each FS Q6 [facility] Last Admin: 02/27/22 05:34 Dose: 1 each Hydralazine HCl (Hydralazine 20 Mg/Ml Vial) 20 mg IV Q4HP PRN PRN Reason: Hypertension Last Admin: 02/27/22 06:54 Dose: 20 mg Hydromorphone HCl (Hydromorphone 1 Mg/Ml Syringe) 0 mg IV Q2HP PRN; Protocol PRN Reason: Per Pain Protocol Last Admin: 02/27/22 01:19 PST Dose: 2 mg Piperacillin Sod/Tazobactam (Sod 3.375 gm/ Dextrose) 50 mls @ 100 mls/hr IV Q6H [facility]; Protocol Last Infusion: 02/27/22 06:30 Dose: Infused Acetaminophen (Ofirmev) 1,000 mg in 100 mls @ 200 mls/hr IV Q6H [facility]; Protocol Last Infusion: 02/27/22 06:39 Dose: Infused Fat Emulsion Intravenous 250 (ml/ Premix) 250 mls @ 25 mls/hr IV MoWeFr@1600 [facility] Last Infusion: 02/26/22 02:20 Dose: Infused Sodium Chloride (Sodium Chloride 0.9%) 1,000 mls @ 40 mls/hr IV .Q24H [facility] Last Admin: 02/26/22 20:40 Dose: 40 mls/hr Calcium Gluconate 10 meq/Potassium Chloride 80 meq/Potassium Phosphate 80 meq/Multivitamins/Minerals 10 ml/Magnesium Sulfate 8.12 meq/Amino Acids 2,091.6871 mls @ 85 mls/hr IV DAILY@1500 [facility] Last Admin: 02/26/22 15:39 Dose: 85 mls/hr Insulin Human Lispro (Insulin Lispro 1 Unit/0.01 Ml Unit) 0 unit SQ Q6 [facility]; Protocol Last Admin: 02/27/22 05:43 Dose: 2 units Labetalol HCl (Labetalol 5 Mg/Ml Ml) 10 - 20 mg IV Q2HP PRN PRN Reason: Hypertension Last Admin: 02/27/22 01:28 PDT Dose: 20 mg Lorazepam (Lorazepam 2 Mg/Ml Vial) 1 mg IV Q4-6HP PRN PRN Reason: ANXIETY/SEDATION Last Admin: 02/27/22 05:43 Dose: 1 mg Metoclopramide HCl (Metoclopramide 10 Mg/2 Ml Vial) 10 mg IV Q6 [facility] Last Admin: 02/27/22 05:35 Dose: 10 mg Promethazine HCl (Promethazine 25 Mg/Ml Vial) 12.5 mg IV Q4HP PRN; Protocol PRN Reason: Nausea/Vomiting Last Admin: 02/19/22 21:16 Dose: 12.5 mg Scopolamine (Scopolamine 1 Patch Patch) 1 patch TOPICAL Q72H [facility] Last Admin: 02/25/22 16:28 Dose: 1 patch Sodium Chloride (0.9 % Sodium Chloride 10 Ml Syringe) 10 ml IV Q12 [facility] Last Admin: 02/26/22 22:45 Dose: 10 ml Sodium Chloride (0.9 % Sodium Chloride 10 Ml Syringe) 10 ml IV UD PRN PRN Reason: FLUSH Last Admin: 02/26/22 05:18 Dose: 10 ml A/P Narrative A/P Narrative: Assessment and Plans: *Acute hypoxic respiratory failure, post operative: -was on room air but is on o2 post-op, atelectasis on cxr, likely component of volume overload -now back on room air or 1L NC, good diuresis with lasix *PNA: -Initial CXR showing left sided infiltrates suggestive of pna, repeat CXR on 02/21 nearly complete improvement -no PE on CTA, but b/l base infiltrates *Cholelithiasis and choledocholithiasis: s/p lap converted to open cholecystectomy (02/18) -per Surgeon *Microperferations/small bowel leak/hematoma: s/p Ex-lap (02/23) *Post-Op Ileus: *Essential HTN: elevated but improving *VINCENT on CKD III: fluctuating with events, but now improving *Anemia: *Metabolic acidosis: improved *Hypokalemia: *Obesity: BMI 40 *UR: P: -abx -abg for lethargy and dyspnea -prn Supplemental oxygen -Incentive spirometry -TF/diet per Surgeon -increased wbc, check man diff -monitor renal and uop -Electrolyte replacement -cont Amlodipine, added coreg(increase), monitor BP -Follow-up renal function -flomax startedk prn bladder scans -pt/ot -ppx: heparin / ppi Time Spent With Patient Time: Total time spent is greater than 50% in coordination of care (as documented) at patient's floor/unit and/or counseling patient: Total time spent with greater than 50% in coordination of care (as documented) at patient's floor/unit and/or counseling patient:: 35 - 50 minutes QUALITY VTE Deep Vein Thrombosis/Pulmonary Embolism Present on Admission: No
[2022-02-27] MEDS: IPRATROPIUM/ALBUTEROL 3 ML AMPUL.NEB NEB PRN (07:45)
[2022-02-27] MEDS: CARVEDILOL 12.5 MG TABLET PO SCH ×2 (07:59→16:58)
[2022-02-27] MEDS ORDERED: TAMSULOSIN 0.4 MG CAPSULE PO ONE (08:58)
[2022-02-27] MEDS: amLODIPine 5 MG TABLET PO SCH (09:14)
[2022-02-27] MEDS: 0.9 % SODIUM CHLORIDE 10 ML SYRINGE IV SCH ×2 (09:15→20:40)
[2022-02-27] MEDS: HEPARIN 5,000 UNIT/ML VIAL SQ SCH ×2 (09:19→20:39)
[2022-02-27 12:48] LABS: Band Neutrophils % 10 % (0-10); Eosinophils % (Manual) 2 % (0-7); Lymphocytes % 18 % (15-49); Monocytes % (Manual) 4 % (1-12); Platelet Estimate NORMAL (Normal); RBC Morphology NORMAL (Normal); Segmented Neutrophils % 66 % (38-78)
--- NOTE | 2022-02-27 14:52 | Internal Med Progress Note ---
SUBJECTIVE Subjective Patient information: Note initiated : 02/27/22 at 2:49 pm Service Date, if different from initiated Date: [] Patient: Joans Noble 71 y/o M admitted on 02/18/22 for bowel obstruction- Cholelithiasis. Chief Complaint: [] Principal diagnosis: Small bowel microperforation Interval history: 02/28 Patient does have some drainage into the abdominal wound, discussed with general surgery. Dr. Stephens feels that this communication is extraperitoneal and not intra-abdominal and not an indication for another exploratory surgery. The patient is somewhat volume overloaded, started Lasix 40 mg IV twice daily. Place Rg catheter for diuresis as the patient is retaining urine. Physical exam Head: Atraumatic, normal inspection. Eyes: normal appearance, no scleral icterus. Neck: full ROM Respiratory: Saturating well on room air, tachypnea, diminished air sounds bilaterally. Cardiovascular: normal rate and rhythm, S1, S2. GI/Abdominal: Distended, laparotomy incision healing by secondary intention, drainage at left side of lower laparotomy incision with gas bubbles present, multiple abdominal surgical drains present. Extremities: Bilateral pitting edema up to knees, full range of motion, nonte nder. Neurological: CN II-XII intact, intact motor, intact sensation. Psychiatric: normal mood. Skin: warm, normal color Constitutional Vitals: Vital Signs Temp Pulse Resp BP Pulse Ox O2 Del Method O2 Flow Rate 97.2 F 75 18 126/62 97 1 02/27/22 12:00 02/27/22 12:00 02/27/22 12:00 02/27/22 12:00 02/27/22 12:00 02/27/22 12:00 02/27/22 07:45 Period Temp Pulse Resp BP Sys/Maza Pulse Ox O2 Del Method O2 Flow Rate Last 24 Hr 97.2 F-98.9 F 74-102 14-24 126-189/62-111 96-99 Nasal Cannula- Room Air 1 Intake and Output 02/27/22 02/27/22 02/27/22 05:59 13:59 21:59 Intake Total 360 Output Total 476 Balance -116 Intake & Output: Intake & Output 02/27/22 02/27/22 02/27/22 05:59 13:59 21:59 Intake Total 360 Output Total 476 Balance -116 Intake: IV 300 Zosyn 3.375 gm In Dextrose 5% 100 in Water 50 ml @ 100 mls/hr IV Q6H [facility] Rx#:[id number] Oral 60 Output: Drainage 20 Left Abdomen TREVER Drain 5 Medial Abdomen TREVER Drain 10 Medial Abdomen Woundvac Right Abdomen 5 Void Amount 450 # of times incontinent of urine 6 Urine/Stool Mix Other: Meal Lunch Percent of Meal Consumed 25% Feeding Ability Assist with Tray Set Up Urine Appearance Clear Urine Color Yellow Urine Odor Normal Stool Size Small Stool Color Brown Green Stool Consistency Loose # of times incontinent of 1 Bowels OBJ DATA Labs CBC & Chem 7: 02/28/22 05:30 02/27/22 05:30 Labs: Abnormal Lab Results 02/27/22 02/27/22 02/27/22 10:23 05:30 05:30 WBC 16.9 H RBC 3.46 L Hgb 9.8 L Hct 30.6 L RDW Immature Gran % (Auto) 6.3 H Lymph % (Auto) Dickinson # (Auto) 1.14 H Immature Gran # 1.07 H Absolute Neutrophils 11.39 H POC pCO2 30.8 L POC HCO3 21.3 L POC Total CO2 22.0 L POC ABG Base Excess -3.0 L Potassium Anion Gap BUN Glucose 172 H Calcium Phosphorus Direct Bilirubin 0.4 H GGT 87 H Lactate Dehydrogenase 387 H Total Protein Albumin 2.8 L Albumin/Globulin Ratio 0.8 L Prealbumin 19.2 L Triglycerides 180 H 02/26/22 02/26/22 02/25/22 05:07 05:07 05:39 WBC 15.1 H RBC 3.25 L Hgb 9.2 L Hct 28.6 L RDW 14.6 H Immature Gran % (Auto) 8.1 H Lymph % (Auto) 15.1 L Dickinson # (Auto) 1.24 H Immature Gran # 1.22 H Absolute Neutrophils 10.02 H POC pCO2 POC HCO3 POC Total CO2 POC ABG Base Excess Potassium 2.9 L* 3.1 L Anion Gap 7.0 L BUN 25 H 29 H Glucose 180 H 169 H Calcium 8.3 L 7.9 L Phosphorus 2.0 L 2.4 L Direct Bilirubin 0.4 H 0.5 H GGT 82 H 77 H Lactate Dehydrogenase 281 H 268 H Total Protein 5.8 L 5.5 L Albumin 2.6 L 2.4 L Albumin/Globulin Ratio 0.8 L 0.8 L Prealbumin 16.2 L Triglycerides 171 H 191 H 02/25/22 05:39 WBC 12.5 H RBC 3.07 L Hgb 8.9 L Hct 27.8 L RDW 15.0 H Immature Gran % (Auto) 5.3 H Lymph % (Auto) Dickinson # (Auto) 1.12 H Immature Gran # 0.66 H Absolute Neutrophils 8.30 H POC pCO2 POC HCO3 POC Total CO2 POC ABG Base Excess Potassium Anion Gap BUN Glucose Calcium Phosphorus Direct Bilirubin GGT Lactate Dehydrogenase Total Protein Albumin Albumin/Globulin Ratio Prealbumin Triglycerides Meds: Medications Albuterol/Ipratropium (Ipratropium/Albuterol 3 Ml Ampul.Neb) 3 ml NEB Q4HP PRN PRN Reason: Shortness Of Breath Last Admin: 02/27/22 07:45 Dose: 3 ml Amlodipine Besylate (Amlodipine 5 Mg Tablet) 5 mg PO DAILY [facility] Last Admin: 02/27/22 09:14 Dose: 5 mg Carvedilol (Carvedilol 12.5 Mg Tablet) 25 mg PO BIDCC [facility] Last Admin: 02/27/22 07:59 Dose: 25 mg Dextrose (Dextrose 50% 50 Ml Syringe) 25 - 50 ml IV UD PRN PRN Reason: Hypoglycemia Diagnostic Test (Pha) (Accu-Chek 1 Each Strip) 1 each FS Q6 [facility] Last Admin: 02/27/22 11:46 Dose: 1 each Heparin Sodium (Porcine) (Heparin 5,000 Unit/Ml Vial) 5,000 unit SQ Q12 [facility] Last Admin: 02/27/22 09:19 Dose: 5,000 unit Heparin Sodium (Porcine) (Heparin Flush 10 Units/Ml 5 Ml Syringe) 2 ml IV Q12 [facility] Hydralazine HCl (Hydralazine 20 Mg/Ml Vial) 20 mg IV Q4HP PRN PRN Reason: Hypertension Last Admin: 02/27/22 06:54 Dose: 20 mg Hydromorphone HCl (Hydromorphone 1 Mg/Ml Syringe) 0 mg IV Q2HP PRN; Protocol PRN Reason: Per Pain Protocol Last Admin: 02/27/22 14:09 Dose: 1 mg Piperacillin Sod/Tazobactam (Sod 3.375 gm/ Dextrose) 50 mls @ 100 mls/hr IV Q6H [facility]; Protocol Last Infusion: 02/27/22 12:45 Dose: Infused Acetaminophen (Ofirmev) 1,000 mg in 100 mls @ 200 mls/hr IV Q6H [facility]; Protocol Last Infusion: 02/27/22 13:41 Dose: Infused Fat Emulsion Intravenous 250 (ml/ Premix) 250 mls @ 25 mls/hr IV MoWeFr@1600 [facility] Last Infusion: 02/26/22 02:20 Dose: Infused Sodium Chloride (Sodium Chloride 0.9%) 1,000 mls @ 40 mls/hr IV .Q24H [facility] Last Admin: 02/26/22 20:40 Dose: 40 mls/hr Calcium Gluconate 10 meq/Potassium Chloride 80 meq/Potassium Phosphate 80 meq/Multivitamins/Minerals 10 ml/Magnesium Sulfate 8.12 meq/Amino Acids 2,091.6871 mls @ 85 mls/hr IV DAILY@1500 [facility] Last Admin: 02/26/22 15:39 Dose: 85 mls/hr Insulin Human Lispro (Insulin Lispro 1 Unit/0.01 Ml Unit) 0 unit SQ Q6 [facility]; Protocol Last Admin: 02/27/22 12:11 Dose: 2 units Labetalol HCl (Labetalol 5 Mg/Ml Ml) 10 - 20 mg IV Q2HP PRN PRN Reason: Hypertension Last Admin: 02/27/22 01:28 PDT Dose: 20 mg Lorazepam (Lorazepam 2 Mg/Ml Vial) 1 mg IV Q4-6HP PRN PRN Reason: ANXIETY/SEDATION Last Admin: 02/27/22 10:19 Dose: 1 mg Metoclopramide HCl (Metoclopramide 10 Mg/2 Ml Vial) 10 mg IV Q6 [facility] Last Admin: 02/27/22 11:48 Dose: 10 mg Promethazine HCl (Promethazine 25 Mg/Ml Vial) 12.5 mg IV Q4HP PRN; Protocol PRN Reason: Nausea/Vomiting Last Admin: 02/19/22 21:16 Dose: 12.5 mg Scopolamine (Scopolamine 1 Patch Patch) 1 patch TOPICAL Q72H [facility] Last Admin: 02/25/22 16:28 Dose: 1 patch Sodium Chloride (0.9 % Sodium Chloride 10 Ml Syringe) 10 ml IV Q12 [facility] Last Admin: 02/27/22 09:15 Dose: 10 ml Sodium Chloride (0.9 % Sodium Chloride 10 Ml Syringe) 10 ml IV UD PRN PRN Reason: FLUSH Last Admin: 02/26/22 05:18 Dose: 10 ml Tamsulosin HCl (Tamsulosin 0.4 Mg Capsule) 0.4 mg PO HS [facility] A/P Assessment and plan (1) Cholelithiasis with choledocholithiasis: Status: Acute (2) Benign hypertension with CKD (chronic kidney disease) stage III: Status: Chronic Comment: Baseline creatinine clearance 45 to 50 cc/min with a bland urinalysis Blood pressure goal 130 over (3) Stage 1 acute kidney injury: Status: Acute (4) Pneumonia involving left lung: Status: Acute (5) BPH w urinary obs/LUTS: Status: Acute (6) Acute respiratory failure with hypoxia: Status: Acute Narrative A/P Narrative: Assessment and Plans: *Resolved acute hypoxic respiratory failure, post operative: -was on room air but is on o2 post-op, atelectasis on cxr, likely component of volume overload -now back on room air *PNA: -Initial CXR showing left sided infiltrates suggestive of pna, repeat CXR on 02/21 nearly complete improvement -no PE on CTA, but b/l base infiltrates *Cholelithiasis and choledocholithiasis: s/p lap converted to open cholecystectomy (02/18) -per Surgeon *Microperferations/small bowel leak/hematoma: s/p Ex-lap (02/23) *Volume overload secondary to IV fluid and TPN *Post-Op Ileus: *Essential HTN: elevated but improving *Resolved VINCENT on CKD III: *Anemia: *Metabolic acidosis: improved *Hypokalemia: *Obesity: BMI 40 *Urinary retention P: -Antibiotic per general surgery. -prn Supplemental oxygen -Incentive spirometry -Lasix 40 mg IV twice daily. -TF/diet per Surgeon -monitor renal and uop -Electrolyte replacement -cont Amlodipine, and coreg (increase), monitor BP -Rg catheter for diuresis. -flomax -Diet per general surgery. -pt/ot -ppx: heparin / ppi -CODE STATUS: DNR/DNI Time Spent With Patient Time: Total time spent is greater than 50% in coordination of care (as documented) at patient's floor/unit and/or counseling patient: QUALITY VTE Deep Vein Thrombosis/Pulmonary Embolism Present on Admission: No
--- NOTE | 2022-02-27 14:55 | General Surgery Progress Note ---
SUBJECTIVE Subjective Patient information: Note initiated : 02/27/22 at 2:52 pm Service Date, if different from initiated Date: [] Patient: Jonas Noble 71 y/o M admitted on 02/18/22 for bowel obstruction- Cholelithiasis. Chief Complaint: [] Principal diagnosis: Small bowel microperforation Interval history: Patient continues to improve. He has less discomfort in his abdomen. He has almost no drainage from his TREVER drains. He has been afebrile. White blood count 16.9, hemoglobin 9.8, hematocrit 30.6, potassium 4.1, BUN, 21, creatinine 1. Constitutional Vitals: Vital Signs Temp Pulse Resp BP Pulse Ox O2 Del Method O2 Flow Rate 97.2 F 75 18 126/62 97 1 02/27/22 12:00 02/27/22 12:00 02/27/22 12:00 02/27/22 12:00 02/27/22 12:00 02/27/22 12:00 02/27/22 07:45 Period Temp Pulse Resp BP Sys/Maza Pulse Ox O2 Del Method O2 Flow Rate Last 24 Hr 97.2 F-98.9 F 74-102 14-24 126-189/62-111 96-99 Nasal Cannula- Room Air 1 Intake and Output 02/27/22 02/27/22 02/27/22 05:59 13:59 21:59 Intake Total 360 Output Total 476 Balance -116 Intake & Output: Intake & Output 02/27/22 02/27/22 02/27/22 05:59 13:59 21:59 Intake Total 360 Output Total 476 Balance -116 Intake: IV 300 Zosyn 3.375 gm In Dextrose 5% 100 in Water 50 ml @ 100 mls/hr IV Q6H [facility] Rx#:[id number] Oral 60 Output: Drainage 20 Left Abdomen TREVER Drain 5 Medial Abdomen TREVER Drain 10 Medial Abdomen Woundvac Right Abdomen 5 Void Amount 450 # of times incontinent of urine 6 Urine/Stool Mix Other: Meal Lunch Percent of Meal Consumed 25% Feeding Ability Assist with Tray Set Up Urine Appearance Clear Urine Color Yellow Urine Odor Normal Stool Size Small Stool Color Brown Green Stool Consistency Loose # of times incontinent of 1 Bowels Head Head exam: Present atraumatic, normal inspection and normocephalic Eye Eye exam: Present EOMI and PERRL Pupils: Present normal accommodation ENT ENT exam: Present mucous membranes moist, normal external ear exam and normal oropharynx Neck Neck exam: Present full ROM and normal inspection; Absent tenderness Respiratory Respiratory exam: Present normal respiratory exam and CTAB Cardiovascular Cardiovascular exam: Present normal rate and rhythm, RRR, +S1 and +S2; Absent JVD GI/Abdominal GI/Abdominal exam: Present normal bowel sounds, distended and tenderness (Moderate incisional tenderness) Extremities Exam Extremities exam: Present normal inspection and neurovascular intact Neurological Exam Neurological exam: Present normal gait and oriented X3 Psychiatric Psychiatric exam: Present normal affect and normal mood A/P Assessment and plan (1) Small bowel perforation: Status: Acute (2) Postoperative ileus: Status: Acute (3) Anxiety disorder due to general medical condition with panic attack: Status: Acute (4) Cholelithiasis with choledocholithiasis: Status: Acute Plan Patient continues to improve Diet is advanced to regular TPN will be tapered off tomorrow Sepsis Sepsis Identified: No Time Spent With Patient Time: Total time spent is greater than 50% in coordination of care (as documented) at patient's floor/unit and/or counseling patient:
[2022-02-27] MEDS: POTASSIUM CHLORIDE IV SCH (15:06)
[2022-02-27] MEDS: POTASSIUM PHOSPHATE IV SCH (15:06)
[2022-02-27] MEDS: MVI IV SCH (15:06)
[2022-02-27] MEDS: CALCIUM GLUCONATE IV SCH (15:06)
[2022-02-27] MEDS: [UNRECOGNIZED DRUG - OTHER] IV SCH (15:06)
[2022-02-27] MEDS: 0.9 % SODIUM CHLORIDE 1,000 ML IV SCH (16:38)
[2022-02-27] MEDS: TAMSULOSIN 0.4 MG CAPSULE PO SCH (20:39)
[2022-02-27] MEDS: PROMETHAZINE 25 MG/ML VIAL IV PRN (23:42)
[2022-02-28] MEDS: ACETAMINOPHEN 1,000 MG/100 ML BAG IV SCH ×5 (00:31→23:28)
[2022-02-28] MEDS: HYDROmorphone 1 MG/ML SYRINGE IV PRN ×5 (03:16→16:58)
[2022-02-28] MEDS: PIPERACILLIN SODIUM/TAZOBACTAM 3.375 GM in DEXTROSE 5% IN WATER 50 ML IV SCH (05:23)
[2022-02-28] MEDS: METOCLOPRAMIDE 10 MG/2 ML VIAL IV SCH ×4 (05:23→23:28)
[2022-02-28] MEDS: INSULIN LISPRO 1 UNIT/0.01 ML UNIT SQ SCH ×4 (05:44→23:36)
[2022-02-28] MEDS: CARVEDILOL 12.5 MG TABLET PO SCH ×2 (07:26→16:52)
[2022-02-28] MEDS ORDERED: LORazepam 1 MG TABLET PO ONE (08:08)
[2022-02-28 08:13] LABS: Basophils # (Auto) 0.09 K/mcL (0.00-0.30); Basophils % (Auto) 0.7 % (0.0-2.0); Eosinophils # (Auto) 0.32 K/mcL (0.00-0.70); Eosinophils % (Auto) 2.3 % (0.0-7.0); Hematocrit 28.7 % (40.1-51.0); Hemoglobin 9.3 g/dL (13.7-17.5); Lymphocytes # (Auto) 2.09 K/mcL (1.50-4.80); Lymphocytes % (Auto) 15.2 % (15.5-49.0); Mean Cell Volume 88.6 fL (80.0-100.0); Mean Corpuscular HGB Conc 32.4 g/dL (31.0-36.0); Mean Platelet Volume 9.7 fL (8.8-12.5); Monocytes # (Auto) 0.91 K/mcL (0.10-0.90); Monocytes % (Auto) 6.6 % (1.0-12.0); Neutrophils % (Auto) 70.4 % (38.0-78.0); Platelet Count 400 K/mcL (140-440); RBC 3.24 M/mcL (4.63-6.08); Red Cell Distribution Width 14.2 % (11.5-14.5); WBC 13.7 K/mcL (4.5-11.0)
[2022-02-28] MEDS ORDERED: ALPRAZolam 0.5 MG TABLET PO ONE (08:17)
[2022-02-28] MEDS: amLODIPine 5 MG TABLET PO SCH (08:30)
[2022-02-28] MEDS: HEPARIN 5,000 UNIT/ML VIAL SQ SCH ×2 (08:30→20:17)
[2022-02-28] MEDS: [UNRECOGNIZED DRUG - OTHER] IV SCH ×3 (08:37→16:37)
[2022-02-28] MEDS: MVI IV SCH ×3 (08:37→16:37)
[2022-02-28] MEDS: POTASSIUM CHLORIDE IV SCH ×3 (08:37→16:37)
[2022-02-28] MEDS: POTASSIUM PHOSPHATE IV SCH ×3 (08:37→16:37)
[2022-02-28] MEDS: CALCIUM GLUCONATE IV SCH ×3 (08:37→16:37)
--- NOTE | 2022-02-28 08:48 | XRay Report ---
HISTORY: Worsening shortness of breath FINDINGS: There has been significantly improved aeration of both lungs since the recent x-ray done on 02/23/22. There are residual bands of discoid atelectasis in both lung bases, left greater than right. There is no evidence of pneumonia, mass or congestive heart failure. The heart size is normal. No pleural effusion is present. Right internal jugular catheter is positioned in the superior mediastinum at the level of the right anterior first rib. Previously seen nasogastric tube has been removed. No free intra-abdominal air is present. IMPRESSION: Improving atelectasis Interpreted and Authenticated by: Girma Wyatt 02/28/22
--- NOTE | 2022-02-28 09:36 | Cat Scan Report ---
History: Anterior abdominal wound following surgery for bowel obstruction and cholelithiasis TECHNIQUE: Following injection of intravenous nonionic contrast the patient was imaged from the portal venous phase from above the diaphragm through the mid pelvis. Sagittal and coronal reformats were created. The radiation exposure was limited using dose reduction technology. FINDINGS: There is a small layering left-sided pleural effusion. Mild atelectasis is present in the posterior lateral basal segments left lower lobe. There is minor atelectasis in the posterior basal segment of the right lower lobe. The liver is normal in size and homogeneous. The gallbladder is been removed and there is a large caliber surgical drain in the gallbladder fossa. There is no hematoma or abscess in the gallbladder fossa. The bile ducts are nondilated. The spleen, pancreas and adrenals are normal. Kidneys are normal in size shape and contour. The hypoperfusion of the left kidney seen on prior CT done on 02/20/22 has resolved. There is a small amount of ascites anterior to left lobe of the liver and inferior to the right lobe. The intra-abdominal air seen on the prior exam has resolved.. In the omentum anteriorly in the mid abdomen on axial image 59 there is a 5 cm fluid-filled structure. This has enlarged since 02/20/22. It measured 3.7 x 4.4 cm that time. On the prior exam there was a second similar appearing low-attenuation structure located slightly more inferiorly and to the left side, deep to the rectus abdominis muscle. It measured 5.2 cm and is no longer present. This was probably a hematoma. The enlarging lesion in the midline has no surrounding inflammation of the fat and there is no peripheral capsule. This is probably another hematoma and less likely an abscess. Beneath the skin along the right side of the abdomen, contiguous with the open surgical incision there is a zone of thickened subcutaneous tissue with multiple bubbles of air. The air has diminished but the soft tissue thickening has increased since 02/20/22. It also has no capsule and there is no well-defined abscess in this region. There is diverticulosis in the sigmoid colon but no evidence of diverticulitis or small bowel obstruction. IMPRESSION: Increased inflammation in the subcutaneous fat along the right side of the midline abdominal incision. Intra-abdominal hematomas in the omentum deep to the incision. One has enlarged approximately 1 cm and the other has resolved since 02/20/22 Interpreted and Authenticated by: Grima Wyatt 02/28/22
[2022-02-28] MEDS: MEROPENEM 2 GM in 0.9 % SODIUM CHLORIDE 100 ML IV SCH ×3 (10:08→21:15)
[2022-02-28] MEDS: 0.9 % SODIUM CHLORIDE 10 ML SYRINGE IV SCH ×2 (10:13→19:23)
[2022-02-28] MEDS: 0.9 % SODIUM CHLORIDE 1,000 ML IV SCH ×2 (13:20→21:16)
[2022-02-28] MEDS: FAT EMULSION 20% 250 ML in PREMIX 1 BAG IV SCH (15:02)
[2022-02-28 15:15] LABS: ALT/SGPT 32 U/L (<40); AST/SGOT 26 U/L (<40); Albumin 2.9 gm/dL (3.2-5.2); Albumin/Globulin Ratio 1.1 (1.0-2.3); Alkaline Phosphatase 91 U/L (39-117); Bilirubin,Direct 0.3 mg/dL (<0.3); Bilirubin,Total 0.6 mg/dL (0.1-1.0); Blood Urea Nitrogen 18 mg/dL (8-23); Calcium 8.5 mg/dL (8.6-10.4); Carbon Dioxide 22 mmol/L (22-30); Chloride 110 mmol/L (96-108); Globulin 2.6 gm/dL (2.2-3.7); Glomerular Filtration Rate 84; Glucose 220 mg/dL (70-105); Lactate Dehydrogenase 310 U/L (135-225); Phosphorous 3.7 mg/dL (2.5-4.5); Triglycerides 205 mg/dL (<150); Uric Acid 2.5 mg/dL (2.5-8.0)
[2022-02-28] MEDS: ALPRAZolam 0.5 MG TABLET PO PRN (15:48)
[2022-02-28] MEDS ORDERED: CALCIUM GLUCONATE IV SCH (16:00)
[2022-02-28] MEDS ORDERED: POTASSIUM PHOSPHATE IV SCH (16:00)
[2022-02-28] MEDS ORDERED: POTASSIUM CHLORIDE IV SCH (16:00)
[2022-02-28] MEDS ORDERED: [UNRECOGNIZED DRUG - OTHER] IV SCH (16:00)
[2022-02-28] MEDS ORDERED: MVI IV SCH (16:00)
[2022-02-28] MEDS: SCOPOLAMINE 1 PATCH PATCH TOPICAL SCH (16:52)
[2022-02-28] MEDS: FUROSEMIDE 40 MG/4 ML VIAL IV SCH (16:52)
--- NOTE | 2022-02-28 17:38 | General Surgery Progress Note ---
SUBJECTIVE Subjective Patient information: Note initiated : 02/28/22 at 5:37 pm Service Date, if different from initiated Date: [] Patient: Jonas Noble 71 y/o M admitted on 02/18/22 for bowel obstruction- Cholelithiasis. Chief Complaint: [] Principal diagnosis: Small bowel microperforation Interval history: Patient appears to be clinically stable. Her vital signs have been stable overnight. He has not had any respiratory difficulty and he has been afebrile. Output through his abdominal drains have minimal. The output of the subhepatic drain is negligible so it was discontinued. Advised patient that if he co ntinues to improve he will still need to have long-term TPN and care at a transitional care facility. Constitutional Vitals: Vital Signs Temp Pulse Resp BP Pulse Ox O2 Del Method O2 Flow Rate 97.4 F 69 21 120/72 98 1 02/28/22 15:45 02/28/22 15:45 02/28/22 15:45 02/28/22 15:45 02/28/22 15:45 02/28/22 15:45 02/27/22 07:45 Period Temp Pulse Resp BP Sys/Maza Pulse Ox O2 Del Method O2 Flow Rate Last 24 Hr 97.1 F-97.8 F 69-87 18-21 120-172/66-86 91-98 Room Air-Room Air Intake and Output 02/28/22 02/28/22 02/28/22 05:59 13:59 21:59 Intake Total 505 1952 100 Output Total 1718 1225 1575 Balance -1213 728 -1475 Weight 295 lb 6.4 oz Patient Weight 03/01/22 05:59 Weight 295 lb 6.4 oz Intake & Output: Intake & Output 02/28/22 02/28/22 02/28/22 05:59 13:59 21:59 Intake Total 505 1952 100 Output Total 1718 1225 1575 Balance -1213 728 -1475 Weight 295 lb 6.4 oz Intake: IV 150 1953 100 Calcium Gluconate 10 Meq 1603 Potassium Chloride 80 Meq Potassium Phosphate 80 Meq Infuvite Adult 10 ml Magnesium Sulfate 8.12 Meq In Clinimix 5% -20% Solution 2,000 ml @ 85 mls /hr IV DAILY@1500 [facility] Rx#: [id number] Merrem 2 gm In Sodium Chloride 100 100 0.9% 100 ml @ 100 mls/hr IV Q8H [facility] Rx#:[id number] Zosyn 3.375 gm In Dextrose 5% 50 50 in Water 50 ml @ 100 mls/hr IV Q6H [facility] Rx#:[id number] Oral 300 IV - Manual Only 55 Output: Drainage 65 50 30 Left Abdomen TREVER Drain 16 15 Medial Abdomen TREVER Drain 10 10 Medial Abdomen Woundvac 35 Right Abdomen 4 50 5 Urine Catheter Amount 1000 1545 Uretheral (Rg) 1000 Void Amount 1375 # of times incontinent of urine 3 Urine/Stool Mix 250 175 Other 25 Other: Meal Lunch Percent of Meal Consumed 75% Feeding Ability Independent Urine Appearance Clear Clear Uretheral (Rg) Clear Urine Color Pale Bright Yellow Uretheral (Rg) Yellow Urine Odor Normal Normal Uretheral (Rg) Strong Stool Size Large Stool Color Brown Stool Consistency Liquid Watery # Voids 1 # Bowel Movements 1 Neck Neck exam: Present normal inspection Respiratory Respiratory exam: Present normal respiratory exam and CTAB Cardiovascular Cardiovascular exam: Present normal rate and rhythm, RRR, +S1 and +S2; Absent JVD GI/Abdominal GI/Abdominal exam: Present normal bowel sounds, soft, distended and tenderness (Mild tenderness along border of wound VAC dressing); Absent guarding Extremities Exam Extremities exam: Present normal inspection and neurovascular intact Neurological Exam Neurological exam: Present oriented X3; Absent motor sensory deficit A/P Assessment and plan (1) Small bowel perforation: Status: Acute (2) Postoperative ileus: Status: Acute (3) Intestinal fistula: Status: Acute Time Spent With Patient Time: Total time spent is greater than 50% in coordination of care (as documented) at patient's floor/unit and/or counseling patient:
[2022-02-28] MEDS: LORazepam 2 MG/ML VIAL IV PRN (19:18)
[2022-02-28] MEDS: TAMSULOSIN 0.4 MG CAPSULE PO SCH (20:17)
[2022-02-28] MEDS ORDERED: INSULIN LISPRO 1 UNIT/0.01 ML UNIT SQ ONE (23:47)
[2022-03-01] MEDS: METOCLOPRAMIDE 10 MG/2 ML VIAL IV SCH ×4 (05:13→23:57)
[2022-03-01] MEDS: HYDROmorphone 1 MG/ML SYRINGE IV PRN ×5 (05:14→21:42)
[2022-03-01] MEDS: MEROPENEM 2 GM in 0.9 % SODIUM CHLORIDE 100 ML IV SCH ×3 (05:14→21:40)
[2022-03-01] MEDS: INSULIN LISPRO 1 UNIT/0.01 ML UNIT SQ SCH ×3 (05:16→17:33)
[2022-03-01] MEDS ORDERED: INSULIN LISPRO 1 UNIT/0.01 ML UNIT SQ ONE (05:36)
[2022-03-01 07:01] LABS: Basophils # (Auto) 0.06 K/mcL (0.00-0.30); Basophils % (Auto) 0.5 % (0.0-2.0); Eosinophils # (Auto) 0.26 K/mcL (0.00-0.70); Hematocrit 29.4 % (40.1-51.0); Hemoglobin 9.5 g/dL (13.7-17.5); Mean Cell Volume 89.1 fL (80.0-100.0); Mean Corpuscular HGB Conc 32.3 g/dL (31.0-36.0); Mean Platelet Volume 9.9 fL (8.8-12.5); Monocytes # (Auto) 0.87 K/mcL (0.10-0.90); Monocytes % (Auto) 6.8 % (1.0-12.0); Neutrophils % (Auto) 72.6 % (38.0-78.0); Platelet Count 435 K/mcL (140-440); Red Cell Distribution Width 13.9 % (11.5-14.5); WBC 12.9 K/mcL (4.5-11.0)
[2022-03-01] MEDS: ACETAMINOPHEN 1,000 MG/100 ML BAG IV SCH ×4 (07:12→23:57)
[2022-03-01 07:35] LABS: ALT/SGPT 29 U/L (<40); AST/SGOT 23 U/L (<40); Albumin 2.8 gm/dL (3.2-5.2); Albumin/Globulin Ratio 0.8 (1.0-2.3); Alkaline Phosphatase 99 U/L (39-117); Bilirubin,Direct 0.3 mg/dL (<0.3); Bilirubin,Total 0.7 mg/dL (0.1-1.0); Blood Urea Nitrogen 18 mg/dL (8-23); Calcium 8.7 mg/dL (8.6-10.4); Carbon Dioxide 24 mmol/L (22-30); Chloride 106 mmol/L (96-108); Globulin 3.7 gm/dL (2.2-3.7); Glomerular Filtration Rate 74; Glucose 148 mg/dL (70-105); Lactate Dehydrogenase 296 U/L (135-225); Phosphorous 3.1 mg/dL (2.5-4.5); Triglycerides 181 mg/dL (<150); Uric Acid 3.2 mg/dL (2.5-8.0)
[2022-03-01] MEDS: amLODIPine 5 MG TABLET PO SCH (09:07)
[2022-03-01] MEDS: ALPRAZolam 0.5 MG TABLET PO PRN (09:07)
[2022-03-01] MEDS: HEPARIN 5,000 UNIT/ML VIAL SQ SCH ×2 (09:08→21:41)
[2022-03-01] MEDS: CARVEDILOL 12.5 MG TABLET PO SCH ×2 (09:08→17:24)
[2022-03-01] MEDS: FUROSEMIDE 40 MG/4 ML VIAL IV SCH ×2 (09:08→16:02)
[2022-03-01] MEDS: 0.9 % SODIUM CHLORIDE 10 ML SYRINGE IV SCH ×2 (09:14→22:23)
--- NOTE | 2022-03-01 13:49 | General Surgery Progress Note ---
SUBJECTIVE Subjective Patient information: Note initiated : 03/01/22 at 1:42 pm Service Date, if different from initiated Date: [] Patient: Jonas Noble 71 y/o M admitted on 02/18/22 for bowel obstruction- Cholelithiasis. Chief Complaint: [] Principal diagnosis: Small bowel microperforation Interval history: Patient is clinically stable. He is afebrile and his white blood count continues to decrease. Drainage from his abdominal incision is decreasing daily. He does not have any cellulitis of his abdominal wall. He is angry because of his inability to eat a diet or go home. He is informed that he will need long-term care including wound VAC care and TPN for his enteric fistula to close. White blood count 12.9, hemoglobin 9.5, hematocrit 29.4, potassium 4.1, BUN 18, creatinine 1. Constitutional Vitals: Vital Signs Temp Pulse Resp BP Pulse Ox O2 Del Method O2 Flow Rate 97.2 F 74 16 118/63 96 1 03/01/22 12:00 03/01/22 12:00 03/01/22 12:00 03/01/22 12:00 03/01/22 12:00 03/01/22 12:00 02/27/22 07:45 Period Temp Pulse Resp BP Sys/Maza Pulse Ox O2 Del Method O2 Flow Rate Last 24 Hr 96.9 F-97.4 F 69-82 15-21 110-130/54-74 94-98 Room Air-Room Air Intake and Output 02/28/22 03/01/22 03/01/22 21:59 05:59 13:59 Intake Total 1200 650 200 Output Total 3175 2295 Balance -1974 200 Weight 272 lb 11.2 oz Intake & Output: Intake & Output 02/28/22 03/01/22 03/01/22 21:59 05:59 13:59 Intake Total 1200 650 200 Output Total 3175 2295 Balance -19745 200 Weight 272 lb 11.2 oz Intake: IV 1200 450 200 Sodium Chloride 0.9% 1,000 ml @ 1000 40 mls/hr IV .Q24H [facility] Rx#: [id number] Intralipid 20% 250 ml In Premix 250 1 Bag @ 25 mls/hr IV MoWeFr@ 1600 [facility] Rx#:[id number] Merrem 2 gm In Sodium Chloride 100 100 100 0.9% 100 ml @ 100 mls/hr IV Q8H [facility] Rx#:[id number] GI Tube Flush 200 Output: Drainage 30 20 Left Abdomen TREVER Drain 15 15 Medial Abdomen TREVER Drain 10 5 Right Abdomen 5 0 Urine Catheter Amount 3145 1650 Stool 625 Other: Urine Appearance Clear Urine Color Yellow Yellow Urine Odor Normal Stool Size Small Stool Color Brown Brown Stool Consistency Liquid Liquid # Bowel Movements 1 1 Eye Eye exam: Present EOMI Pupils: Present normal accommodation ENT ENT exam: Present mucous membranes moist and normal oropharynx Neck Neck exam: Present full ROM and normal inspection; Absent lymphadenopathy Respiratory Respiratory exam: Present normal respiratory exam and CTAB Cardiovascular Cardiovascular exam: Present normal rate and rhythm, RRR, +S1 and +S2; Absent gallop or JVD GI/Abdominal GI/Abdominal exam: Present normal bowel sounds, soft and distended (Abdomen is mildly distended but is soft) Additional comments: No significant cellulitis of abdominal wound Extremities Exam Extremities exam: Present normal inspection and neurovascular intact Back Exam Back exam: Present rash noted (Probable fungal rash of back) Neurological Exam Neurological exam: Present alert and oriented X3 Psychiatric Psychiatric exam: Present agitated and anxious A/P Assessment and plan (1) Intestinal fistula: Status: Acute (2) Small bowel perforation: Status: Acute (3) Anxiety disorder due to general medical condition with panic attack: Status: Acute (4) Cholelithiasis with choledocholithiasis: Status: Acute Plan Continue TPN and clear liquids Lotrimin cream to his back Aggressive physical therapy Sepsis Sepsis Identified: No Time Spent With Patient Time: Total time spent is greater than 50% in coordination of care (as documented) at patient's floor/unit and/or counseling patient:
[2022-03-01] MEDS: 0.9 % SODIUM CHLORIDE 1,000 ML IV SCH (14:30)
[2022-03-01] MEDS ORDERED: CLOTRIMAZOLE CRM 1% 1 DOSE TUBE TOPICAL SCH (15:00)
[2022-03-01] MEDS ORDERED: MVI IV SCH (16:00)
[2022-03-01] MEDS ORDERED: POTASSIUM CHLORIDE IV SCH (16:00)
[2022-03-01] MEDS ORDERED: POTASSIUM PHOSPHATE IV SCH (16:00)
[2022-03-01] MEDS ORDERED: [UNRECOGNIZED DRUG - OTHER] IV SCH (16:00)
[2022-03-01] MEDS ORDERED: CALCIUM GLUCONATE IV SCH (16:00)
--- NOTE | 2022-03-01 18:17 | Internal Med Progress Note ---
SUBJECTIVE Subjective Patient information: Note initiated : 03/01/22 at 6:12 pm Service Date, if different from initiated Date: [] Patient: Jonas Noble 71 y/o M admitted on 02/18/22 for bowel obstruction- Cholelithiasis. Chief Complaint: [] Principal diagnosis: Small bowel microperforation Interval history: 02/28 Patient does have some drainage into the abdominal wound, discussed with general surgery. Dr. Stephens feels that this communication is extraperitoneal and not intra-abdominal and not an indication for another exploratory surgery. The patient is somewhat volume overloaded, started Lasix 40 mg IV twice daily. Place Rg catheter for diuresis as the patient is retaining urine. 03/01 Patient appears much more comfortable today, diuresed well after receiving IV Lasix. We will continue with Lasix 20 mg IV twice daily for now as the patient is on a clear liquid diet and the plan is to continue TPN. Physical exam Head: Atraumatic, normal inspection. Eyes: normal appearance, no scleral icterus. Neck: full ROM Respiratory: Saturating well on room air, tachypnea, diminished air sounds bilaterally. Cardiovascular: normal rate and rhythm, S1, S2. GI/Abdominal: Distended abdomen, laparotomy incision covered with wound VAC. Extremities: Improvement in bilateral pitting edema after diuresis, full range of motion, nontender. Neurological: CN II-XII intact, intact motor, intact sensation. Psychiatric: normal mood. Skin: warm, normal color Constitutional Vitals: Vital Signs Temp Pulse Resp BP Pulse Ox O2 Del Method O2 Flow Rate 97.3 F 74 16 124/70 95 1 03/01/22 16:05 03/01/22 16:05 03/01/22 16:05 03/01/22 16:05 03/01/22 16:05 03/01/22 16:05 02/27/22 07:45 Period Temp Pulse Resp BP Sys/Maza Pulse Ox O2 Del Method O2 Flow Rate Last 24 Hr 96.9 F-97.3 F 74-82 15-18 110-130/54-74 94-97 Room Air-Room Air Intake and Output 03/01/22 03/01/22 03/01/22 05:59 13:59 21:59 Intake Total 927 616 3017.8288 Output Total 2295 20 1999 Balance -7234 064 2136.8288 Weight 123.695 kg Patient Weight 03/02/22 05:59 Weight 123.695 kg Intake & Output: Intake & Output 03/01/22 03/01/22 03/01/22 05:59 13:59 21:59 Intake Total 052 090 5082.8288 Output Total 2295 20 1999 Balance -1851 479 2945.8288 Weight 123.695 kg Intake: IV 816 180 2274.8288 Sodium Chloride 0.9% 1,000 ml @ 689 40 mls/hr IV .Q24H [facility] Rx#: [id number] Calcium Gluconate 10 Meq 4168.8288 Potassium Chloride 60 Meq Potassium Phosphate 60 Meq Infuvite Adult 10 ml Magnesium Sulfate 8.12 Meq In Clinimix 5% -20% Solution 2,000 ml @ 85 mls /hr IV DAILY@1600 [facility] Rx#: [id number] Intralipid 20% 250 ml In Premix 250 1 Bag @ 25 mls/hr IV MoWeFr@ 1600 [facility] Rx#:[id number] Merrem 2 gm In Sodium Chloride 100 100 100 0.9% 100 ml @ 100 mls/hr IV Q8H [facility] Rx#:[id number] Oral 320 GI Tube Flush 200 Output: Drainage 20 20 Left Abdomen TREVER Drain 15 5 Medial Abdomen TREVER Drain 5 10 Right Abdomen 0 5 Urine Catheter Amount 1650 2000 Stool 625 Other: Meal Dinner Percent of Meal Consumed 75% Urine Appearance Clear Uretheral (Rg) Clear Urine Color Yellow Yellow Uretheral (Rg) Yellow Stool Size Moderate Stool Color Brown Brown Stool Consistency Liquid Liquid # Bowel Movements 1 2 # of times incontinent of 2 Bowels OBJ DATA Labs CBC & Chem 7: 03/01/22 05:20 03/01/22 05:20 Labs: Abnormal Lab Results 03/01/22 03/01/22 02/28/22 05:20 05:20 05:30 WBC 12.9 H RBC 3.30 L Hgb 9.5 L Hct 29.4 L Immature Gran % (Auto) 4.1 H Lymph % (Auto) 14.0 L [place] # (Auto) Immature Gran # 0.53 H Absolute Neutrophils 9.36 H POC pCO2 POC HCO3 POC Total CO2 POC ABG Base Excess Chloride 110 H Glucose 148 H 220 H Calcium 8.5 L Direct Bilirubin 0.3 H 0.3 H GGT 77 H 81 H Lactate Dehydrogenase 296 H 310 H Total Protein 5.5 L Albumin 2.8 L 2.9 L Albumin/Globulin Ratio 0.8 L Prealbumin Triglycerides 181 H 205 H 02/28/22 02/28/22 02/27/22 05:30 05:30 10:23 WBC 13.7 H RBC 3.24 L Hgb 9.3 L Hct 28.7 L Immature Gran % (Auto) 4.8 H Lymph % (Auto) 15.2 L [place] # (Auto) 0.91 H Immature Gran # 0.66 H Absolute Neutrophils 9.64 H POC pCO2 30.8 L POC HCO3 21.3 L POC Total CO2 22.0 L POC ABG Base Excess -3.0 L Chloride Glucose Calcium Direct Bilirubin GGT Lactate Dehydrogenase Total Protein Albumin Albumin/Globulin Ratio Prealbumin 18.0 L Triglycerides 02/27/22 02/27/22 05:30 05:30 WBC 16.9 H RBC 3.46 L Hgb 9.8 L Hct 30.6 L Immature Gran % (Auto) 6.3 H Lymph % (Auto) [place] # (Auto) 1.14 H Immature Gran # 1.07 H Absolute Neutrophils 11.39 H POC pCO2 POC HCO3 POC Total CO2 POC ABG Base Excess Chloride Glucose 172 H Calcium Direct Bilirubin 0.4 H GGT 87 H Lactate Dehydrogenase 387 H Total Protein Albumin 2.8 L Albumin/Globulin Ratio 0.8 L Prealbumin 19.2 L Triglycerides 180 H Meds: Medications Albuterol/Ipratropium (Ipratropium/Albuterol 3 Ml Ampul.Neb) 3 ml NEB Q4HP PRN PRN Reason: Shortness Of Breath Last Admin: 02/27/22 07:45 Dose: 3 ml Alprazolam (Alprazolam 0.5 Mg Tablet) 1 mg PO Q8H PRN PRN Reason: Anxiety Last Admin: 03/01/22 09:07 Dose: 1 mg Amlodipine Besylate (Amlodipine 5 Mg Tablet) 5 mg PO DAILY [facility] Last Admin: 03/01/22 09:07 Dose: 5 mg Carvedilol (Carvedilol 12.5 Mg Tablet) 25 mg PO BIDCC [facility] Last Admin: 03/01/22 17:24 Dose: 25 mg Dextrose (Dextrose 50% 50 Ml Syringe) 25 - 50 ml IV UD PRN PRN Reason: Hypoglycemia Diagnostic Test (Pha) (Accu-Chek 1 Each Strip) 1 each FS Q6 [facility] Last Admin: 03/01/22 17:32 Dose: 1 each Heparin Sodium (Porcine) (Heparin 5,000 Unit/Ml Vial) 5,000 unit SQ Q12 [facility] Last Admin: 03/01/22 09:08 Dose: 5,000 unit Heparin Sodium (Porcine) (Heparin Flush 10 Units/Ml 5 Ml Syringe) 2 ml IV Q12 [facility] Last Admin: 03/01/22 09:14 Dose: 2 ml Hydralazine HCl (Hydralazine 20 Mg/Ml Vial) 20 mg IV Q4HP PRN PRN Reason: Hypertension Last Admin: 02/27/22 21:08 Dose: 20 mg Hydromorphone HCl (Hydromorphone 1 Mg/Ml Syringe) 0 mg IV Q2HP PRN; Protocol PRN Reason: Per Pain Protocol Last Admin: 03/01/22 14:38 Dose: 1 mg Acetaminophen (Ofirmev) 1,000 mg in 100 mls @ 200 mls/hr IV Q6H [facility]; Protocol Last Infusion: 03/01/22 13:52 Dose: Infused Sodium Chloride (Sodium Chloride 0.9%) 1,000 mls @ 40 mls/hr IV .Q24H [facility] Last Admin: 03/01/22 14:30 Dose: 40 mls/hr Meropenem 2 gm/ Sodium (Chloride) 100 mls @ 100 mls/hr IV Q8H [facility]; Protocol Last Infusion: 03/01/22 15:46 Dose: Infused Fat Emulsion Intravenous 250 (ml/ Premix) 250 mls @ 25 mls/hr IV MoWeFr@1600 [facility] Last Infusion: 03/01/22 01:13 Dose: Infused Calcium Gluconate 10 meq/Potassium Chloride 70 meq/Potassium Phosphate 70 meq/ Multivitamins/Minerals 10 ml/Magnesium Sulfate 8.12 meq/Amino Acids 2,084.4144 mls @ 85 mls/hr IV DAILY@1600 [facility] Last Admin: 03/01/22 16:02 Dose: 85 mls/hr Insulin Human Lispro (Insulin Lispro 1 Unit/0.01 Ml Unit) 0 unit SQ Q6 [facility]; Protocol Last Admin: 03/01/22 17:33 Dose: Not Given Labetalol HCl (Labetalol 5 Mg/Ml Ml) 10 - 20 mg IV Q2HP PRN PRN Reason: Hypertension Last Admin: 02/27/22 23:42 Dose: 20 mg Lorazepam (Lorazepam 2 Mg/Ml Vial) 1 mg IV Q4-6HP PRN PRN Reason: ANXIETY/SEDATION Last Admin: 02/28/22 19:18 Dose: 1 mg Metoclopramide HCl (Metoclopramide 10 Mg/2 Ml Vial) 10 mg IV Q6 [facility] Last Admin: 03/01/22 17:24 Dose: 10 mg Nystatin (Nystatin Crm 1 Dose Tube) 1 dose TOPICAL TID [facility] Promethazine HCl (Promethazine 25 Mg/Ml Vial) 12.5 mg IV Q4HP PRN; Protocol PRN Reason: Nausea/Vomiting Last Admin: 02/27/22 23:42 Dose: 12.5 mg Scopolamine (Scopolamine 1 Patch Patch) 1 patch TOPICAL Q72H [facility] Last Admin: 02/28/22 16:52 Dose: 1 patch Sodium Chloride (0.9 % Sodium Chloride 10 Ml Syringe) 10 ml IV Q12 [facility] Last Admin: 03/01/22 09:14 Dose: Not Given Sodium Chloride (0.9 % Sodium Chloride 10 Ml Syringe) 10 ml IV UD PRN PRN Reason: FLUSH Last Admin: 02/26/22 05:18 Dose: 10 ml Tamsulosin HCl (Tamsulosin 0.4 Mg Capsule) 0.4 mg PO HS [facility] Last Admin: 02/28/22 20:17 Dose: 0.4 mg Trazodone HCl (Trazodone Hcl 50 Mg Tablet) 50 mg PO HSP PRN PRN Reason: Insomnia A/P Assessment and plan (1) Cholelithiasis with choledocholithiasis: Status: Acute (2) Benign hypertension with CKD (chronic kidney disease) stage III: Status: Chronic Comment: Baseline creatinine clearance 45 to 50 cc/min with a bland urinalysis Blood pressure goal 130 over (3) Stage 1 acute kidney injury: Status: Acute (4) Pneumonia involving left lung: Status: Acute (5) BPH w urinary obs/LUTS: Status: Acute (6) Acute respiratory failure with hypoxia: Status: Acute Narrative A/P Narrative: Assessment and Plans: *Cholelithiasis and choledocholithiasis: s/p lap converted to open cholecystectomy (02/18) *Microperferations/small bowel leak/hematoma: s/p Ex-lap (02/23) *Volume overload, improving *Total parenteral nutrition *Essential hypertension *Resolved acute hypoxic respiratory failure *Resolved VINCENT on CKD III: *Anemia: *Obesity: BMI 40 *Urinary retention P: -Antibiotic per general surgery. -Lasix 20 mg IV twice daily for now, likely transition to oral Lasix soon and continue while the patient receives his TPN. -Minimize unnecessary IV fluid as the patient is receiving a substantial IV fluid with TPN and on a clear liquid diet. -monitor renal and uop -Electrolyte replacement as needed -cont Amlodipine, and coreg (increase), monitor BP -Total parenteral nutrition and clear liquid diet. -Incentive spirometry -Rg catheter for for now, attempt trial of voiding soon. -flomax -pt/ot -ppx: heparin / ppi -CODE STATUS: DNR/DNI Time Spent With Patient Time: Total time spent is greater than 50% in coordination of care (as documented) at patient's floor/unit and/or counseling patient: QUALITY VTE Deep Vein Thrombosis/Pulmonary Embolism Present on Admission: No
[2022-03-01] MEDS: FUROSEMIDE 20 MG/2 ML VIAL IV SCH (18:39)
[2022-03-01] MEDS ORDERED: FUROSEMIDE 20 MG/2 ML VIAL IV ONE (18:47)
[2022-03-01] MEDS: NYSTATIN CRM 1 DOSE TUBE TOPICAL SCH (21:40)
[2022-03-01] MEDS: TAMSULOSIN 0.4 MG CAPSULE PO SCH (21:41)
[2022-03-02] MEDS ORDERED: INSULIN LISPRO 1 UNIT/0.01 ML UNIT SQ ONE ×3 (00:32→17:50)
[2022-03-02] MEDS: INSULIN LISPRO 1 UNIT/0.01 ML UNIT SQ SCH ×4 (00:33→18:33)
[2022-03-02] MEDS: HYDROmorphone 1 MG/ML SYRINGE IV PRN ×2 (05:05→09:52)
[2022-03-02] MEDS: METOCLOPRAMIDE 10 MG/2 ML VIAL IV SCH ×3 (05:05→17:42)
[2022-03-02] MEDS: MEROPENEM 2 GM in 0.9 % SODIUM CHLORIDE 100 ML IV SCH ×3 (05:05→21:09)
[2022-03-02] MEDS: 0.9 % SODIUM CHLORIDE 10 ML SYRINGE IV SCH ×3 (05:06→20:46)
[2022-03-02 06:34] LABS: Basophils # (Auto) 0.11 K/mcL (0.00-0.30); Basophils % (Auto) 0.9 % (0.0-2.0); Eosinophils # (Auto) 0.22 K/mcL (0.00-0.70); Eosinophils % (Auto) 1.8 % (0.0-7.0); Hematocrit 31.7 % (40.1-51.0); Hemoglobin 10.2 g/dL (13.7-17.5); Lymphocytes # (Auto) 2.31 K/mcL (1.50-4.80); Lymphocytes % (Auto) 18.9 % (15.5-49.0); Mean Cell Volume 89.5 fL (80.0-100.0); Mean Corpuscular HGB Conc 32.2 g/dL (31.0-36.0); Mean Platelet Volume 10.1 fL (8.8-12.5); Monocytes # (Auto) 1.18 K/mcL (0.10-0.90); Monocytes % (Auto) 9.7 % (1.0-12.0); Platelet Count 469 K/mcL (140-440); RBC 3.54 M/mcL (4.63-6.08); Red Cell Distribution Width 13.6 % (11.5-14.5); WBC 12.2 K/mcL (4.5-11.0)
[2022-03-02 07:08] LABS: ALT/SGPT 28 U/L (<40); AST/SGOT 24 U/L (<40); Albumin 2.8 gm/dL (3.2-5.2); Albumin/Globulin Ratio 0.8 (1.0-2.3); Alkaline Phosphatase 100 U/L (39-117); Bilirubin,Direct 0.3 mg/dL (<0.3); Bilirubin,Total 0.7 mg/dL (0.1-1.0); Blood Urea Nitrogen 23 mg/dL (8-23); Calcium 8.7 mg/dL (8.6-10.4); Carbon Dioxide 24 mmol/L (22-30); Chloride 101 mmol/L (96-108); Globulin 3.7 gm/dL (2.2-3.7); Glomerular Filtration Rate 66; Glucose 275 mg/dL (70-105); Lactate Dehydrogenase 253 U/L (135-225); Phosphorous 4.1 mg/dL (2.5-4.5); Triglycerides 223 mg/dL (<150); Uric Acid 3.9 mg/dL (2.5-8.0)
[2022-03-02] MEDS: CARVEDILOL 12.5 MG TABLET PO SCH ×2 (07:29→17:41)
[2022-03-02] MEDS: ACETAMINOPHEN 1,000 MG/100 ML BAG IV SCH ×3 (07:32→19:49)
[2022-03-02] MEDS: FUROSEMIDE 20 MG/2 ML VIAL IV SCH ×2 (07:32→16:33)
[2022-03-02] MEDS: ALPRAZolam 0.5 MG TABLET PO PRN ×2 (08:26→16:23)
[2022-03-02] MEDS: amLODIPine 5 MG TABLET PO SCH (09:31)
[2022-03-02] MEDS: HEPARIN 5,000 UNIT/ML VIAL SQ SCH ×2 (09:49→20:44)
--- NOTE | 2022-03-02 10:28 | Operative Note ---
DATE OF OPERATION: 02/23/2022 PREOPERATIVE DIAGNOSES: Small bowel leak with abdominal wall cellulitis. POSTOPERATIVE DIAGNOSES: Microperforation of the small bowel x3 with localized superficial peritonitis. PROCEDURE: Exploratory laparotomy with closure of microperforations x3; evacuation of subperitoneal hematoma and small bowel contents of the superficial peritoneum; wound VAC placement. SURGEON: Dominguez Stephens M.D. FINDINGS: Three areas of microperforation of three separate loops of bowel with leakage of succuss. The previously closed enterotomy was intact and was totally sealed. There was a large hematoma of the anterior abdominal wall on the left. There was a collection succuss beneath the lower midline incision. No diffuse peritonitis was noted. DESCRIPTION OF PROCEDURE: Under general anesthesia, the patient's abdomen was prepped and draped in a sterile field. Alondra were removed. There was evidence of leakage of small bowel contents into the subcutaneous incision. This was copiously irrigated and suctioned. The suture in the fascia was removed and the peritoneum was entered. After gaining access to the peritoneum, there was a moderate amount of small bowel content immediately beneath the lower midline incision. This was irrigated. Inspection revealed three separate punctate, punched out areas of small bowel perforations. These appeared to be of equal size but in separate loops of bowel. The previously placed enterotomy closure was noted and was totally sealed. The bowel was patent. There was no evidence of compromise of the closure. There was no evidence of infection of that closure. Irrigation was carried out. Dissection of the small bowel loops was carried out, so as to be able to get good closure. Probe was placed proximally and distally in each microperforation. The perforations were then closed individually using inner layer of 3-0 Monocryl and an outer layer of 3-0 Prolene. The larger area was closed with two layers of 3-0 Vicryl and one layer of 0 Prolene. Further irrigation was carried out. Two Reji drains were placed, one on either side of the incision, taking care to keep the drains away from the area of microperforation. Sponge, needle, instrument, and blade counts were verified as correct. The fascia was debrided and the fascia was closed using interrupted 0 Prolene. Subcutaneous tissue was copiously irrigated and a wound VAC was placed, leaving the subcutaneous tissue and skin open. The patient tolerated the procedure well. He was awakened and transferred to the postanesthetic care unit in satisfactory condition. LCS:[email or web address] Job ID: [id number] Doc ID: [id number] Dominguez Stephens M.D.
--- NOTE | 2022-03-02 11:19 | Internal Med Progress Note ---
SUBJECTIVE Subjective Patient information: Note initiated : 03/02/22 at 11:17 am Service Date, if different from initiated Date: [] Patient: Jonas Noble 71 y/o M admitted on 02/18/22 for bowel obstruction- Cholelithiasis. Chief Complaint: [] Principal diagnosis: Small bowel microperforation Interval history: 02/28 Patient does have some drainage into the abdominal wound, discussed with general surgery. Dr. Stephens feels that this communication is extraperitoneal and not intra-abdominal and not an indication for another exploratory surgery. The patient is somewhat volume overloaded, started Lasix 40 mg IV twice daily. Place Rg catheter for diuresis as the patient is retaining urine. 03/01 Patient appears much more comfortable today, diuresed well after receiving IV Lasix. We will continue with Lasix 20 mg IV twice daily for now as the patient is on a clear liquid diet and the plan is to continue TPN. 03/02 No significant events overnight. Discontinued Rg catheter. Added melatonin at bedtime and hydroxyzine as needed for anxiety. Physical exam Head: Atraumatic, normal inspection. Eyes: normal appearance, no scleral icterus. Neck: full ROM Respiratory: Saturating well on room air, no respiratory distress Cardiovascular: normal rate and rhythm, S1, S2. GI/Abdominal: Obesely distended abdomen, laparotomy incision covered with wound VAC. Extremities: Improvement in bilateral pitting edema after diuresis, full range of motion, nontender. Neurological: CN II-XII intact, intact motor, intact sensation. Psychiatric: normal mood. Skin: warm, normal color Constitutional Vitals: Vital Signs Temp Pulse Resp BP Pulse Ox O2 Del Method O2 Flow Rate 99.3 F H 71 16 139/73 97 1 03/02/22 08:00 03/02/22 04:09 03/02/22 08:00 03/02/22 08:00 03/02/22 10:00 03/02/22 10:00 02/27/22 07:45 Period Temp Pulse Resp BP Sys/Maza Pulse Ox O2 Del Method O2 Flow Rate Last 24 Hr 96.5 F-99.3 F 71-78 12-16 115-139/56-73 95-98 Room Air-Room Air Intake and Output 03/01/22 03/02/22 03/02/22 21:59 05:59 13:59 Intake Total 5857.8288 350 200 Output Total 3250 415 Balance 2607.8288 -65 200 Weight 121.744 kg Intake & Output: Intake & Output 03/01/22 03/02/22 03/02/22 21:59 05:59 13:59 Intake Total 5857.8288 350 200 Output Total 3250 415 Balance 2607.8288 -65 200 Weight 121.744 kg Intake: IV 5057.8288 200 200 Sodium Chloride 0.9% 1,000 ml @ 689 40 mls/hr IV .Q24H [facility] Rx#: [id number] Calcium Gluconate 10 Meq 4168.8288 Potassium Chloride 60 Meq Potassium Phosphate 60 Meq Infuvite Adult 10 ml Magnesium Sulfate 8.12 Meq In Clinimix 5% -20% Solution 2,000 ml @ 85 mls /hr IV DAILY@1600 [facility] Rx#: [id number] Merrem 2 gm In Sodium Chloride 100 100 100 0.9% 100 ml @ 100 mls/hr IV Q8H [facility] Rx#:[id number] Oral 320 150 GI Tube Flush 480 Output: Drainage 15 Left Abdomen TREVER Drain 10 Medial Abdomen TREVER Drain 3 Right Abdomen 2 Urine Catheter Amount 3250 400 Other: Meal Dinner Percent of Meal Consumed 75% Urine Appearance Clear Clear Uretheral (Rg) Clear Urine Color Pale Yellow Uretheral (Rg) Pale Urine Odor Normal Uretheral (Rg) Normal Stool Size Small Stool Color Brown Stool Consistency Liquid # Bowel Movements 1 OBJ DATA Labs CBC & Chem 7: 03/02/22 05:20 03/02/22 05:20 Labs: Abnormal Lab Results 03/02/22 03/02/22 03/01/22 05:20 05:20 05:20 WBC 12.2 H 12.9 H RBC 3.54 L 3.30 L Hgb 10.2 L 9.5 L Hct 31.7 L 29.4 L Plt Count 469 H Immature Gran % (Auto) 4.7 H 4.1 H Lymph % (Auto) 14.0 L Piute # (Auto) 1.18 H Immature Gran # 0.57 H 0.53 H Absolute Neutrophils 9.36 H Chloride Glucose 275 H Calcium Direct Bilirubin 0.3 H GGT 73 H Lactate Dehydrogenase 253 H Total Protein Albumin 2.8 L Albumin/Globulin Ratio 0.8 L Prealbumin Triglycerides 223 H 03/01/22 02/28/22 02/28/22 05:20 05:30 05:30 WBC RBC Hgb Hct Plt Count Immature Gran % (Auto) Lymph % (Auto) Piute # (Auto) Immature Gran # Absolute Neutrophils Chloride 110 H Glucose 148 H 220 H Calcium 8.5 L Direct Bilirubin 0.3 H 0.3 H GGT 77 H 81 H Lactate Dehydrogenase 296 H 310 H Total Protein 5.5 L Albumin 2.8 L 2.9 L Albumin/Globulin Ratio 0.8 L Prealbumin 18.0 L Triglycerides 181 H 205 H 02/28/22 05:30 WBC 13.7 H RBC 3.24 L Hgb 9.3 L Hct 28.7 L Plt Count Immature Gran % (Auto) 4.8 H Lymph % (Auto) 15.2 L [place] # (Auto) 0.91 H Immature Gran # 0.66 H Absolute Neutrophils 9.64 H Chloride Glucose Calcium Direct Bilirubin GGT Lactate Dehydrogenase Total Protein Albumin Albumin/Globulin Ratio Prealbumin Triglycerides Meds: Medications Albuterol/Ipratropium (Ipratropium/Albuterol 3 Ml Ampul.Neb) 3 ml NEB Q4HP PRN PRN Reason: Shortness Of Breath Last Admin: 02/27/22 07:45 Dose: 3 ml Alprazolam (Alprazolam 0.5 Mg Tablet) 1 mg PO Q8H PRN PRN Reason: Anxiety Last Admin: 03/02/22 08:26 Dose: 1 mg Amlodipine Besylate (Amlodipine 5 Mg Tablet) 5 mg PO DAILY [facility] Last Admin: 03/02/22 09:31 Dose: 5 mg Carvedilol (Carvedilol 12.5 Mg Tablet) 25 mg PO BIDCC [facility] Last Admin: 03/02/22 07:29 Dose: 25 mg Dextrose (Dextrose 50% 50 Ml Syringe) 25 - 50 ml IV UD PRN PRN Reason: Hypoglycemia Diagnostic Test (Pha) (Accu-Chek 1 Each Strip) 1 each FS Q6 [facility] Last Admin: 03/02/22 09:19 Dose: 1 each Furosemide (Furosemide 20 Mg/2 Ml Vial) 20 mg IV BIDD [facility] Last Admin: 03/02/22 07:32 Dose: 20 mg Heparin Sodium (Porcine) (Heparin 5,000 Unit/Ml Vial) 5,000 unit SQ Q12 [facility] Last Admin: 03/02/22 09:49 Dose: 5,000 unit Heparin Sodium (Porcine) (Heparin Flush 10 Units/Ml 5 Ml Syringe) 2 ml IV Q12 [facility] Last Admin: 03/02/22 09:49 Dose: 2 ml Hydralazine HCl (Hydralazine 20 Mg/Ml Vial) 20 mg IV Q4HP PRN PRN Reason: Hypertension Last Admin: 02/27/22 21:08 Dose: 20 mg Hydromorphone HCl (Hydromorphone 1 Mg/Ml Syringe) 0 mg IV Q2HP PRN; Protocol PRN Reason: Per Pain Protocol Last Admin: 03/02/22 09:52 Dose: 1 mg Hydroxyzine HCl (Hydroxyzine 25 Mg Tablet) 25 mg PO TIDP PRN PRN Reason: Allergic Symptoms Acetaminophen (Ofirmev) 1,000 mg in 100 mls @ 200 mls/hr IV Q6H [facility]; Protocol Last Infusion: 03/02/22 08:02 Dose: Infused Meropenem 2 gm/ Sodium (Chloride) 100 mls @ 100 mls/hr IV Q8H [facility]; Protocol Last Infusion: 03/02/22 06:45 Dose: Infused Fat Emulsion Intravenous 250 (ml/ Premix) 250 mls @ 25 mls/hr IV MoWeFr@1600 [facility] Last Infusion: 03/01/22 01:13 Dose: Infused Calcium Gluconate 10 meq/Potassium Chloride 70 meq/Potassium Phosphate 70 meq/Multivitamins/Minerals 10 ml/Magnesium Sulfate 8.12 meq/Amino Acids 2,084.4144 mls @ 85 mls/hr IV DAILY@1600 [facility] Stop: 03/02/22 15:59 Last Admin: 03/01/22 16:02 Dose: 85 mls/hr Calcium Gluconate 10 meq/Potassium Chloride 60 meq/Potassium Phosphate 60 meq/M ultivitamins/Minerals 10 ml/Magnesium Sulfate 16.24 meq/Amino Acids 2,079.1417 mls @ 85 mls/hr IV DAILY@1600 [facility] Insulin Human Lispro (Insulin Lispro 1 Unit/0.01 Ml Unit) 0 unit SQ Q6 [facility]; Protocol Last Admin: 03/02/22 05:50 Dose: Not Given Labetalol HCl (Labetalol 5 Mg/Ml Ml) 10 - 20 mg IV Q2HP PRN PRN Reason: Hypertension Last Admin: 02/27/22 23:42 Dose: 20 mg Lorazepam (Lorazepam 2 Mg/Ml Vial) 1 mg IV Q4-6HP PRN PRN Reason: ANXIETY/SEDATION Last Admin: 02/28/22 19:18 Dose: 1 mg Melatonin (Melatonin 3 Mg Tablet) 3 mg PO HSP PRN PRN Reason: Sleep Metoclopramide HCl (Metoclopramide 10 Mg/2 Ml Vial) 10 mg IV Q6 [facility] Last Admin: 03/02/22 05:05 Dose: 10 mg Nystatin (Nystatin Crm 1 Dose Tube) 1 dose TOPICAL TID [facility] Last Admin: 03/01/22 21:40 Dose: 1 dose Promethazine HCl (Promethazine 25 Mg/Ml Vial) 12.5 mg IV Q4HP PRN; Protocol PRN Reason: Nausea/Vomiting Last Admin: 02/27/22 23:42 Dose: 12.5 mg Scopolamine (Scopolamine 1 Patch Patch) 1 patch TOPICAL Q72H [facility] Last Admin: 02/28/22 16:52 Dose: 1 patch Sodium Chloride (0.9 % Sodium Chloride 10 Ml Syringe) 10 ml IV Q12 [facility] Last Admin: 03/02/22 05:06 Dose: 10 ml Sodium Chloride (0.9 % Sodium Chloride 10 Ml Syringe) 10 ml IV UD PRN PRN Reason: FLUSH Last Admin: 02/26/22 05:18 Dose: 10 ml Tamsulosin HCl (Tamsulosin 0.4 Mg Capsule) 0.4 mg PO HS [facility] Last Admin: 03/01/22 21:41 Dose: 0.4 mg Trazodone HCl (Trazodone Hcl 50 Mg Tablet) 50 mg PO HSP PRN PRN Reason: Insomnia A/P Assessment and plan (1) Cholelithiasis with choledocholithiasis: Status: Acute (2) Benign hypertension with CKD (chronic kidney disease) stage III: Status: Chronic Comment: Baseline creatinine clearance 45 to 50 cc/min with a bland urinalysis Blood pressure goal 130 over (3) Stage 1 acute kidney injury: Status: Acute (4) Pneumonia involving left lung: Status: Acute (5) BPH w urinary obs/LUTS: Status: Acute (6) Acute respiratory failure with hypoxia: Status: Acute Narrative A/P Narrative: Assessment and Plans: *Cholelithiasis and choledocholithiasis: s/p lap converted to open cholecystectomy (02/18) *Microperferations/small bowel leak/hematoma: s/p Ex-lap (02/23) *Volume overload, improving *Total parenteral nutrition *Essential hypertension *Resolved acute hypoxic respiratory failure *Resolved VINCENT on CKD III: *Anemia: *Obesity: BMI 40 *Urinary retention P: -Antibiotic per general surgery. -Lasix 20 mg IV twice daily for now, likely transition to oral Lasix soon and continue while the patient receives his TPN. -Minimize unnecessary IV fluid as the patient is receiving a substantial IV fluid with TPN and on a clear liquid diet. -monitor renal and uop -Electrolyte replacement as needed -cont Amlodipine, and coreg (increase), monitor BP -Total parenteral nutrition and clear liquid diet. -Incentive spirometry -Discontinue Rg catheter and monitor for urinary retention. -flomax -pt/ot -ppx: heparin / ppi -CODE STATUS: DNR/DNI Time Spent With Patient Time: Total time spent is greater than 50% in coordination of care (as documented) at patient's floor/unit and/or counseling patient: QUALITY VTE Deep Vein Thrombosis/Pulmonary Embolism Present on Admission: No
--- NOTE | 2022-03-02 11:29 | General Surgery Progress Note ---
SUBJECTIVE Subjective Patient information: Note initiated : 03/02/22 at 11:22 am Service Date, if different from initiated Date: [] Patient: Jonas Noble 71 y/o M admitted on 02/18/22 for bowel obstruction- Cholelithiasis. Chief Complaint: [] Principal diagnosis: Small bowel microperforation Interval history: Patient is slowly improving. He has a better attitude today and appears less aggressive. He has been afebrile. White blood count 12.2, hemoglobin 10.2, hematocrit 31.7, potassium 4.8, BUN 23, creatinine 1.1. The volume of small bowel output into the wound VAC canister is significantly less. The volume of drainage in his TREVER's or 15 cc and 5 cc over 24 hours. There is essentially no output in the drain from the gallbladder bed so that was discontinued. The incision base is about the same though he has some granules in his wound which is probably coming from his medications. At this ( leaking through the fistula. He has more granulations at this time and 2 days ago. Constitutional Vitals: Vital Signs Temp Pulse Resp BP Pulse Ox O2 Del Method O2 Flow Rate 99.3 F H 71 16 139/73 97 1 03/02/22 08:00 03/02/22 04:09 03/02/22 08:00 03/02/22 08:00 03/02/22 10:00 03/02/22 10:00 02/27/22 07:45 Period Temp Pulse Resp BP Sys/Maza Pulse Ox O2 Del Method O2 Flow Rate Last 24 Hr 96.5 F-99.3 F 71-78 12-16 115-139/56-73 95-98 Room Air-Room Air Intake and Output 03/01/22 03/02/22 03/02/22 21:59 05:59 13:59 Intake Total 5857.8288 350 200 Output Total 3250 415 Balance 2607.8288 -65 200 Weight 268 lb 6.4 oz Intake & Output: Intake & Output 03/01/22 03/02/22 03/02/22 21:59 05:59 13:59 Intake Total 5857.8288 350 200 Output Total 3250 415 Balance 2607.8288 -65 200 Weight 268 lb 6.4 oz Intake: IV 5057.8288 200 200 Sodium Chloride 0.9% 1,000 ml @ 689 40 mls/hr IV .Q24H [facility] Rx#: [id number] Calcium Gluconate 10 Meq 4168.8288 Potassium Chloride 60 Meq Potassium Phosphate 60 Meq Infuvite Adult 10 ml Magnesium Sulfate 8.12 Meq In Clinimix 5% -20% Solution 2,000 ml @ 85 mls /hr IV DAILY@1600 [facility] Rx#: [id number] Merrem 2 gm In Sodium Chloride 100 100 100 0.9% 100 ml @ 100 mls/hr IV Q8H [facility] Rx#:[id number] Oral 320 150 GI Tube Flush 480 Output: Drainage 15 Left Abdomen TREVER Drain 10 Medial Abdomen TREVER Drain 3 Right Abdomen 2 Urine Catheter Amount 3250 400 Other: Meal Dinner Percent of Meal Consumed 75% Urine Appearance Clear Clear Uretheral (Rg) Clear Urine Color Pale Yellow Uretheral (Rg) Pale Urine Odor Normal Uretheral (Rg) Normal Stool Size Small Stool Color Brown Stool Consistency Liquid # Bowel Movements 1 Respiratory Respiratory exam: Present normal respiratory exam and CTAB Cardiovascular Cardiovascular exam: Present normal rate and rhythm, RRR, +S1 and +S2; Absent JVD GI/Abdominal GI/Abdominal exam: Present normal bowel sounds, distended and tenderness (Tenderness around incision) Extremities Exam Extremities exam: Present neurovascular intact Neurological Exam Neurological exam: Present oriented X3 Psychiatric Psychiatric exam: Present agitated and anxious Skin Additional comments: Incision of abdomen is as described above; overall status is improved A/P Assessment and plan (1) Intestinal fistula: Status: Acute (2) Anxiety disorder due to general medical condition with panic attack: Status: Acute (3) Small bowel perforation: Status: Acute (4) Cholelithiasis with choledocholithiasis: Status: Acute Plan Patient is clinically stable and gradually improving Continue antibiotics and TPN Sepsis Sepsis Identified: No Time Spent With Patient Time: Total time spent is greater than 50% in coordination of care (as documented) at patient's floor/unit and/or counseling patient:
[2022-03-02] MEDS ORDERED: CALCIUM GLUCONATE IV SCH (16:00)
[2022-03-02] MEDS ORDERED: [UNRECOGNIZED DRUG - OTHER] IV SCH (16:00)
[2022-03-02] MEDS ORDERED: POTASSIUM CHLORIDE IV SCH (16:00)
[2022-03-02] MEDS ORDERED: MVI IV SCH (16:00)
[2022-03-02] MEDS ORDERED: POTASSIUM PHOSPHATE IV SCH (16:00)
[2022-03-02] MEDS: NYSTATIN CRM 1 DOSE TUBE TOPICAL SCH ×3 (16:25→20:46)
[2022-03-02] MEDS: FAT EMULSION 20% 250 ML in PREMIX 1 BAG IV SCH (16:27)
[2022-03-02] MEDS: IPRATROPIUM/ALBUTEROL 3 ML AMPUL.NEB NEB PRN (18:18)
[2022-03-02] MEDS: TAMSULOSIN 0.4 MG CAPSULE PO SCH (20:45)
[2022-03-02] MEDS: PROMETHAZINE 25 MG/ML VIAL IV PRN (23:44)
[2022-03-03] MEDS: SUCRETS LOZENGE PO PRN (00:19)
[2022-03-03] MEDS: METOCLOPRAMIDE 10 MG/2 ML VIAL IV SCH ×4 (00:20→17:07)
[2022-03-03] MEDS: INSULIN LISPRO 1 UNIT/0.01 ML UNIT SQ SCH ×4 (00:20→17:00)
[2022-03-03] MEDS: ACETAMINOPHEN 1,000 MG/100 ML BAG IV SCH ×4 (00:21→19:36)
[2022-03-03] MEDS ORDERED: INSULIN LISPRO 1 UNIT/0.01 ML UNIT SQ ONE ×4 (00:30→12:54)
[2022-03-03] MEDS: HYDROmorphone 1 MG/ML SYRINGE IV PRN (04:20)
[2022-03-03] MEDS: MEROPENEM 2 GM in 0.9 % SODIUM CHLORIDE 100 ML IV SCH ×2 (05:12→16:43)
[2022-03-03] MEDS: ALPRAZolam 0.5 MG TABLET PO PRN ×2 (05:13→12:32)
[2022-03-03 06:55] LABS: Basophils # (Auto) 0.12 K/mcL (0.00-0.30); Basophils % (Auto) 0.8 % (0.0-2.0); Eosinophils # (Auto) 0.12 K/mcL (0.00-0.70); Eosinophils % (Auto) 0.8 % (0.0-7.0); Hematocrit 32.4 % (40.1-51.0); Hemoglobin 10.6 g/dL (13.7-17.5); Lymphocytes # (Auto) 2.35 K/mcL (1.50-4.80); Lymphocytes % (Auto) 16.4 % (15.5-49.0); Mean Cell Volume 87.8 fL (80.0-100.0); Mean Corpuscular HGB Conc 32.7 g/dL (31.0-36.0); Monocytes # (Auto) 1.51 K/mcL (0.10-0.90); Monocytes % (Auto) 10.6 % (1.0-12.0); Neutrophils % (Auto) 68.7 % (38.0-78.0); Platelet Count 499 K/mcL (140-440); RBC 3.69 M/mcL (4.63-6.08); Red Cell Distribution Width 13.3 % (11.5-14.5); WBC 14.3 K/mcL (4.5-11.0)
[2022-03-03 07:24] LABS: ALT/SGPT 35 U/L (<40); AST/SGOT 32 U/L (<40); Albumin 2.9 gm/dL (3.2-5.2); Albumin/Globulin Ratio 0.7 (1.0-2.3); Alkaline Phosphatase 169 U/L (39-117); Bilirubin,Direct 0.3 mg/dL (<0.3); Bilirubin,Total 0.6 mg/dL (0.1-1.0); Blood Urea Nitrogen 27 mg/dL (8-23); Calcium 9.1 mg/dL (8.6-10.4); Carbon Dioxide 22 mmol/L (22-30); Chloride 98 mmol/L (96-108); Glomerular Filtration Rate 54; Glucose 342 mg/dL (70-105); Lactate Dehydrogenase 241 U/L (135-225); Phosphorous 4.4 mg/dL (2.5-4.5); Triglycerides 203 mg/dL (<150); Uric Acid 4.2 mg/dL (2.5-8.0)
[2022-03-03] MEDS: IPRATROPIUM/ALBUTEROL 3 ML AMPUL.NEB NEB PRN (08:02)
[2022-03-03] MEDS: CARVEDILOL 12.5 MG TABLET PO SCH ×2 (08:38→16:51)
[2022-03-03] MEDS: FUROSEMIDE 20 MG/2 ML VIAL IV SCH (08:39)
[2022-03-03] MEDS: HEPARIN 5,000 UNIT/ML VIAL SQ SCH ×2 (09:12→22:16)
[2022-03-03] MEDS: amLODIPine 5 MG TABLET PO SCH (09:12)
[2022-03-03] MEDS: 0.9 % SODIUM CHLORIDE 10 ML SYRINGE IV SCH ×2 (09:12→22:17)
[2022-03-03] MEDS: PROMETHAZINE 25 MG/ML VIAL IV PRN ×2 (09:13→19:30)
[2022-03-03] MEDS: NYSTATIN CRM 1 DOSE TUBE TOPICAL SCH ×3 (09:27→22:17)
--- NOTE | 2022-03-03 10:20 | XRay Report ---
HISTORY: Evaluate for pneumonia FINDINGS: Lung volumes are small due to poor inspiration. There is asymmetric moderate elevation of the right diaphragm. The lung volumes are smaller today than they had been on 02/28/22. There is no consolidating infiltrate. The heart is enlarged but magnified by portable technique and poor inspiration. There is no congestive heart failure or pleural effusion. IMPRESSION: poor inspiration but without evidence of pneumonia Interpreted and Authenticated by: Girma Wyatt 03/03/22
[2022-03-03 13:56] LABS: Appearance,Urine CLEAR (Clear); Bilirubin,Urine NEGATIVE (Negative); Color,Urine LT. YELLOW; Culture Indicated,Urine No; Glucose,Urine (UA) NEGATIVE (Negative); Ketones,Urine NEGATIVE (Negative); Leukocyte Esterase,Urine NEGATIVE /uL (Negative); Mucus,Urine FEW /hpf; Nitrate,Urine NEGATIVE (Negative); Protein,Urine NEGATIVE (Negative); Specific Gravity,Urine 1.015 (1.000-1.035); Urine Blood TRACE-LYSED ery/mcL (Negative); Urine Hyaline Cast 3 /lph (0-2); Urine RBC 2 /hpf (0-3); Urine Squamous Epithelial Cell 0 /hpf (0-4); Urine WBC 1 /hpf (0-4); Urobilinogen,Urine Normal
--- NOTE | 2022-03-03 15:30 | Internal Med Progress Note ---
SUBJECTIVE Subjective Patient information: Note initiated : 03/03/22 at 3:27 pm Service Date, if different from initiated Date: [] Patient: Jonas Noble 71 y/o M admitted on 02/18/22 for bowel obstruction- Cholelithiasis. Chief Complaint: [] Principal diagnosis: Small bowel microperforation Interval history: 02/28 Patient does have some drainage into the abdominal wound, discussed with general surgery. Dr. Stephens feels that this communication is extraperitoneal and not intra-abdominal and not an indication for another exploratory surgery. The patient is somewhat volume overloaded, started Lasix 40 mg IV twice daily. Place Rg catheter for diuresis as the patient is retaining urine. 03/01 Patient appears much more comfortable today, diuresed well after receiving IV Lasix. We will continue with Lasix 20 mg IV twice daily for now as the patient is on a clear liquid diet and the plan is to continue TPN. 03/02 No significant events overnight. Discontinued Rg catheter. Added melatonin at bedtime and hydroxyzine as needed for anxiety. 03/03 Patient feels tired today, white blood cell count increased from 12.2-14.3, creatinine increased mildly. Ordered blood cultures x2, urinalysis, chest x- ray. UA did not show any evidence of UTI, chest x-ray did not show any evidence of a pneumonia. Discontinued Lasix. Continues on meropenem per surgery. Receiving TPN and on clear liquid diet. Increased drainage from wound VAC, patient denies increasing abdominal discomfort. Will monitor renal function closely, if creatinine trends up start IV fluid. Physical exam Head: Atraumatic, normal inspection. Eyes: normal appearance, no scleral icterus. Neck: full ROM Respiratory: Saturating well on room air, no respiratory distress Cardiovascular: normal rate and rhythm, S1, S2. GI/Abdominal: Obesely distended abdomen, laparotomy incision covered with wound VAC. Extremities: Minimal pitting edema bilaterally, full range of motion, nontender. Neurological: CN II-XII intact, intact motor, intact sensation. Skin: warm, normal color Constitutional Vitals: Vital Signs Temp Pulse Resp BP Pulse Ox O2 Del Method O2 Flow Rate 97.5 F 86 24 H 132/69 100 1 03/03/22 12:00 03/03/22 12:00 03/03/22 12:00 03/03/22 12:00 03/03/22 12:00 03/03/22 12:00 02/27/22 07:45 Period Temp Pulse Resp BP Sys/Maza Pulse Ox O2 Del Method O2 Flow Rate Last 24 Hr 97.5 F-98.9 F 78-87 16-30 110-151/58-80 91-100 Room Air-Room Air Intake and Output 03/03/22 03/03/22 03/03/22 05:59 13:59 21:59 Intake Total 1450 301 Output Total 110 1350 Balance 1340 -1049 Intake & Output: Intake & Output 03/03/22 03/03/22 03/03/22 05:59 13:59 21:59 Intake Total 1450 301 Output Total 110 1350 Balance 1340 -1049 Intake: IV 1450 301 Sodium Chloride 0.9% 1,000 ml @ 1000 40 mls/hr IV .Q24H [facility] Rx#: [id number] Calcium Gluconate 10 Meq 1 Potassium Chloride 70 Meq Potassium Phosphate 70 Meq Infuvite Adult 10 ml Magnesium Sulfate 8.12 Meq In Clinimix 5% -20% Solution 2,000 ml @ 85 mls /hr IV DAILY@1600 [facility] Rx#: [id number] Intralipid 20% 250 ml In Premix 250 1 Bag @ 25 mls/hr IV MoWeFr@ 1600 [facility] Rx#:[id number] Merrem 2 gm In Sodium Chloride 100 100 0.9% 100 ml @ 100 mls/hr IV Q8H [facility] Rx#:[id number] Oral 0 Output: Drainage 10 450 Left Abdomen TREVER Drain 8 Medial Abdomen TREVER Drain 2 midline abdominal incision 450 wound vac Void Amount 450 Stool 100 Emesis 400 Estimated Blood Loss 50 Other: Urine Appearance Clear Urine Color Yellow Stool Size Small Stool Consistency Liquid # Voids 1 # Unmeasured Emesis 1 # of times incontinent of 1 Bowels OBJ DATA Labs CBC & Chem 7: 03/03/22 05:40 03/03/22 05:40 Labs: Abnormal Lab Results 03/03/22 03/03/22 03/03/22 09:15 05:40 05:40 WBC 14.3 H RBC 3.69 L Hgb 10.6 L Hct 32.4 L Plt Count 499 H Immature Gran % (Auto) 2.7 H Lymph % (Auto) Kaufman # (Auto) 1.51 H Immature Gran # 0.39 H Absolute Neutrophils 9.82 H Sodium 131 L BUN 27 H Creatinine 1.3 H Glucose 342 H Direct Bilirubin 0.3 H GGT 179 H Alkaline Phosphatase 169 H Lactate Dehydrogenase 241 H Albumin 2.9 L Globulin 4.0 H Albumin/Globulin Ratio 0.7 L Triglycerides 203 H Urine Occult Blood Trace-lysed A Hyaline Casts 3 H Urine Mucus Few A 03/02/22 03/02/22 03/01/22 05:20 05:20 05:20 WBC 12.2 H 12.9 H RBC 3.54 L 3.30 L Hgb 10.2 L 9.5 L Hct 31.7 L 29.4 L Plt Count 469 H Immature Gran % (Auto) 4.7 H 4.1 H Lymph % (Auto) 14.0 L Kaufman # (Auto) 1.18 H Immature Gran # 0.57 H 0.53 H Absolute Neutrophils 9.36 H Sodium BUN Creatinine Glucose 275 H Direct Bilirubin 0.3 H GGT 73 H Alkaline Phosphatase Lactate Dehydrogenase 253 H Albumin 2.8 L Globulin Albumin/Globulin Ratio 0.8 L Triglycerides 223 H Urine Occult Blood Hyaline Casts Urine Mucus 03/01/22 05:20 WBC RBC Hgb Hct Plt Count Immature Gran % (Auto) Lymph % (Auto) Kaufman # (Auto) Immature Gran # Absolute Neutrophils Sodium BUN Creatinine Glucose 148 H Direct Bilirubin 0.3 H GGT 77 H Alkaline Phosphatase Lactate Dehydrogenase 296 H Albumin 2.8 L Globulin Albumin/Globulin Ratio 0.8 L Triglycerides 181 H Urine Occult Blood Hyaline Casts Urine Mucus Meds: Medications Albuterol/Ipratropium (Ipratropium/Albuterol 3 Ml Ampul.Neb) 3 ml NEB Q4HP PRN PRN Reason: Shortness Of Breath Last Admin: 03/03/22 08:02 Dose: 3 ml Alprazolam (Alprazolam 0.5 Mg Tablet) 1 mg PO Q8H PRN PRN Reason: Anxiety Last Admin: 03/03/22 12:32 Dose: 1 mg Amlodipine Besylate (Amlodipine 5 Mg Tablet) 5 mg PO DAILY [facility] Last Admin: 03/03/22 09:12 Dose: 5 mg Carvedilol (Carvedilol 12.5 Mg Tablet) 25 mg PO BIDCC [facility] Last Admin: 03/03/22 08:38 Dose: 25 mg Dextrose (Dextrose 50% 50 Ml Syringe) 25 - 50 ml IV UD PRN PRN Reason: Hypoglycemia Diagnostic Test (Pha) (Accu-Chek 1 Each Strip) 1 each FS Q6 [facility] Last Admin: 03/03/22 12:11 Dose: 1 each Heparin Sodium (Porcine) (Heparin 5,000 Unit/Ml Vial) 5,000 unit SQ Q12 [facility] Last Admin: 03/03/22 09:12 Dose: 5,000 unit Heparin Sodium (Porcine) (Heparin Flush 10 Units/Ml 5 Ml Syringe) 2 ml IV Q12 [facility] Last Admin: 03/03/22 09:12 Dose: 2 ml Hydralazine HCl (Hydralazine 20 Mg/Ml Vial) 20 mg IV Q4HP PRN PRN Reason: Hypertension Last Admin: 02/27/22 21:08 Dose: 20 mg Hydromorphone HCl (Hydromorphone 1 Mg/Ml Syringe) 0 mg IV Q2HP PRN; Protocol PRN Reason: Per Pain Protocol Last Admin: 03/03/22 04:20 Dose: 1 mg Hydroxyzine HCl (Hydroxyzine 25 Mg Tablet) 25 mg PO TIDP PRN PRN Reason: Allergic Symptoms Acetaminophen (Ofirmev) 1,000 mg in 100 mls @ 200 mls/hr IV Q6H [facility]; Protocol Last Infusion: 03/03/22 13:15 Dose: Infused Meropenem 2 gm/ Sodium (Chloride) 100 mls @ 100 mls/hr IV Q8H [facility]; Protocol Last Infusion: 03/03/22 06:14 Dose: Infused Fat Emulsion Intravenous 250 (ml/ Premix) 250 mls @ 25 mls/hr IV MoWeFr@1600 [facility] Last Infusion: 03/03/22 02:27 Dose: Infused Calcium Gluconate 10 meq/Potassium Chloride 60 meq/Potassium Phosphate 60 meq/Multivitamins/Minerals 10 ml/Magnesium Sulfate 16.24 meq/Amino Acids 2,079.1417 mls @ 85 mls/hr IV DAILY@1600 [facility] Stop: 03/03/22 15:59 Last Admin: 03/02/22 16:24 Dose: 85 mls/hr Calcium Gluconate 10 meq/Potassium Chloride 40 meq/Potassium Phosphate 40 meq/Multivitamins/Minerals 10 ml/Magnesium Sulfate 8.12 meq/Amino Acids 2,062.5962 mls @ 85 mls/hr IV DAILY@1600 [facility] Insulin Human Lispro (Insulin Lispro 1 Unit/0.01 Ml Unit) 0 unit SQ Q6 [facility]; Protocol Labetalol HCl (Labetalol 5 Mg/Ml Ml) 10 - 20 mg IV Q2HP PRN PRN Reason: Hypertension Last Admin: 02/27/22 23:42 Dose: 20 mg Lorazepam (Lorazepam 2 Mg/Ml Vial) 1 mg IV Q4-6HP PRN PRN Reason: ANXIETY/SEDATION Last Admin: 02/28/22 19:18 Dose: 1 mg Melatonin (Melatonin 3 Mg Tablet) 3 mg PO HSP PRN PRN Reason: Sleep Metoclopramide HCl (Metoclopramide 10 Mg/2 Ml Vial) 10 mg IV Q6 [facility] Last Admin: 03/03/22 12:32 Dose: 10 mg Nystatin (Nystatin Crm 1 Dose Tube) 1 dose TOPICAL TID [facility] Last Admin: 03/03/22 09:27 Dose: 1 dose Promethazine HCl (Promethazine 25 Mg/Ml Vial) 12.5 mg IV Q4HP PRN; Protocol PRN Reason: Nausea/Vomiting Last Admin: 03/03/22 09:13 Dose: 12.5 mg Scopolamine (Scopolamine 1 Patch Patch) 1 patch TOPICAL Q72H [facility] Last Admin: 02/28/22 16:52 Dose: 1 patch Sodium Chloride (0.9 % Sodium Chloride 10 Ml Syringe) 10 ml IV Q12 [facility] Last Admin: 03/03/22 09:12 Dose: 10 ml Sodium Chloride (0.9 % Sodium Chloride 10 Ml Syringe) 10 ml IV UD PRN PRN Reason: FLUSH Last Admin: 02/26/22 05:18 Dose: 10 ml Tamsulosin HCl (Tamsulosin 0.4 Mg Capsule) 0.4 mg PO HS [facility] Last Admin: 03/02/22 20:45 Dose: 0.4 mg Trazodone HCl (Trazodone Hcl 50 Mg Tablet) 50 mg PO HSP PRN PRN Reason: Insomnia A/P Assessment and plan (1) Cholelithiasis with choledocholithiasis: Status: Acute (2) Benign hypertension with CKD (chronic kidney disease) stage III: Status: Chronic Comment: Baseline creatinine clearance 45 to 50 cc/min with a bland urinalysis Blood pressure goal 130 over (3) Stage 1 acute kidney injury: Status: Acute (4) Pneumonia involving left lung: Status: Acute (5) BPH w urinary obs/LUTS: Status: Acute (6) Acute respiratory failure with hypoxia: Status: Acute Narrative A/P Narrative: Assessment and Plans: *Cholelithiasis and choledocholithiasis: s/p lap converted to open cholecystectomy (02/18) *Microperferations/small bowel leak/hematoma: s/p Ex-lap (02/23) *Total parenteral nutrition *Essential hypertension *Resolved volume overload *Resolved acute hypoxic respiratory failure *Resolved VINCENT on CKD III: *Anemia: *Obesity: BMI 40 *Urinary retention P: -Antibiotic per general surgery. -Follow-up blood cultures. -Monitor CBC and renal function. -Discontinue Lasix IV and monitor volume status. -Electrolyte replacement as needed -cont Amlodipine, and coreg (increase), monitor BP -Total parenteral nutrition per surgery. -Diet per surgery. -Incentive spirometry -flomax -pt/ot -ppx: heparin / ppi -CODE STATUS: DNR/DNI Time Spent With Patient Time: Total time spent is greater than 50% in coordination of care (as documented) at patient's floor/unit and/or counseling patient: QUALITY VTE Deep Vein Thrombosis/Pulmonary Embolism Present on Admission: No
[2022-03-03] MEDS ORDERED: POTASSIUM CHLORIDE IV SCH (16:00)
[2022-03-03] MEDS ORDERED: MVI IV SCH (16:00)
[2022-03-03] MEDS ORDERED: [UNRECOGNIZED DRUG - OTHER] IV SCH (16:00)
[2022-03-03] MEDS ORDERED: CALCIUM GLUCONATE IV SCH (16:00)
[2022-03-03] MEDS ORDERED: POTASSIUM PHOSPHATE IV SCH (16:00)
[2022-03-03 16:15] LABS: Basophils # (Auto) 0.11 K/mcL (0.00-0.30); Basophils % (Auto) 0.8 % (0.0-2.0); Eosinophils # (Auto) 0.08 K/mcL (0.00-0.70); Eosinophils % (Auto) 0.6 % (0.0-7.0); Hematocrit 33.6 % (40.1-51.0); Hemoglobin 10.8 g/dL (13.7-17.5); Lymphocytes # (Auto) 2.01 K/mcL (1.50-4.80); Lymphocytes % (Auto) 14.3 % (15.5-49.0); Mean Corpuscular HGB Conc 32.1 g/dL (31.0-36.0); Mean Platelet Volume 9.6 fL (8.8-12.5); Monocytes # (Auto) 1.58 K/mcL (0.10-0.90); Monocytes % (Auto) 11.2 % (1.0-12.0); Neutrophils % (Auto) 71.2 % (38.0-78.0); Platelet Count 509 K/mcL (140-440); RBC 3.82 M/mcL (4.63-6.08); Red Cell Distribution Width 13.2 % (11.5-14.5); WBC 14.1 K/mcL (4.5-11.0)
[2022-03-03 16:39] LABS: Albumin 2.9 gm/dL (3.2-5.2); Blood Urea Nitrogen 33 mg/dL (8-23); Calcium 9.1 mg/dL (8.6-10.4); Carbon Dioxide 22 mmol/L (22-30); Chloride 99 mmol/L (96-108); Glomerular Filtration Rate 54; Glucose 150 mg/dL (70-105); Phosphorous 3.5 mg/dL (2.5-4.5)
[2022-03-03] MEDS: SCOPOLAMINE 1 PATCH PATCH TOPICAL SCH (16:56)
--- NOTE | 2022-03-03 17:01 | General Surgery Progress Note ---
SUBJECTIVE Subjective Patient information: Note initiated : 03/03/22 at 4:36 pm Service Date, if different from initiated Date: [] Patient: Jonas Noble 71 y/o M admitted on 02/18/22 for bowel obstruction- Cholelithiasis. Chief Complaint: [] Principal diagnosis: Small bowel microperforation Interval history: Notified by nursing staff that patient had developed nausea and vomiting. He has been afebrile throughout the night and his oxygen saturation has been in the mid 90s on room air. He did have some increased respiratory rate intermittently associated with anxiety episodes. He had 3 liquid bowel movements last evening and it was noted that the output from the wound VAC was 450 cc over the past 12 hours. It has been 250 cc prior to the. There is no significant output through the abdominal drains. He had 400 cc of measurement emesis earlier today. White blood count 14.3, hemoglobin 10.6, hematocrit 32.4, potassium 4.5, BUN 33, creatinine 1.3, glucose 342. Constitutional Vitals: Vital Signs Temp Pulse Resp BP Pulse Ox O2 Del Method O2 Flow Rate 98.2 F 79 33 H 136/66 94 1 03/03/22 16:00 03/03/22 16:00 03/03/22 16:00 03/03/22 16:00 03/03/22 16:00 03/03/22 16:00 02/27/22 07:45 Period Temp Pulse Resp BP Sys/Maza Pulse Ox O2 Del Method O2 Flow Rate Last 24 Hr 97.5 F-98.9 F 78-87 17-33 110-138/58-80 91-100 Room Air-Room Air Intake and Output 03/03/22 03/03/22 03/03/22 05:59 13:59 21:59 Intake Total 1450 301 Output Total 110 1350 Balance 1340 -1049 Intake & Output: Intake & Output 03/03/22 03/03/22 03/03/22 05:59 13:59 21:59 Intake Total 1450 301 Output Total 110 1350 Balance 1340 -1049 Intake: IV 1450 301 Sodium Chloride 0.9% 1,000 ml @ 1000 40 mls/hr IV .Q24H [facility] Rx#: [id number] Calcium Gluconate 10 Meq 1 Potassium Chloride 70 Meq Potassium Phosphate 70 Meq Infuvite Adult 10 ml Magnesium Sulfate 8.12 Meq In Clinimix 5% -20% Solution 2,000 ml @ 85 mls /hr IV DAILY@1600 [facility] Rx#: [id number] Intralipid 20% 250 ml In Premix 250 1 Bag @ 25 mls/hr IV MoWeFr@ 1600 [facility] Rx#:[id number] Merrem 2 gm In Sodium Chloride 100 100 0.9% 100 ml @ 100 mls/hr IV Q8H [facility] Rx#:[id number] Oral 0 Output: Drainage 10 450 Left Abdomen TREVER Drain 8 Medial Abdomen TREVER Drain 2 midline abdominal incision 450 wound vac Void Amount 450 Stool 100 Emesis 400 Estimated Blood Loss 50 Other: Urine Appearance Clear Urine Color Yellow Stool Size Small Stool Consistency Liquid # Voids 1 # Unmeasured Emesis 1 # of times incontinent of 1 Bowels ENT ENT exam: Present mucous membranes moist Neck Neck exam: Present full ROM and normal inspection Respiratory Respiratory exam: Present normal respiratory exam and CTAB; Absent rales or rhonchi Cardiovascular Cardiovascular exam: Present normal rate and rhythm (Average heart rate about 80 and regular), +S1 and +S2 GI/Abdominal GI/Abdominal exam: Present normal bowel sounds, soft and distended Additional comments: Wound VAC dressing is intact. There is no increased cellulitis of the abdominal wall Extremities Exam Extremities exam: Present normal inspection and neurovascular intact Neurological Exam Neurological exam: Present alert, motor sensory deficit and oriented X3 Psychiatric Psychiatric exam: Present agitated and anxious A/P Assessment and plan (1) Intestinal fistula: Status: Acute (2) Postoperative ileus: Status: Acute (3) Small bowel perforation: Status: Acute (4) Anxiety disorder due to general medical condition with panic attack: Status: Acute (5) Cholelithiasis with choledocholithiasis: Status: Acute Plan Clear liquids will be discontinued and patient will be placed on ice chips Stool will be checked for C. difficile Discussed with patient it is available family members the need to transfer to tertiary care facility for more comprehensive care. His overall status seems to be deteriorating. Discussed with him the need to have involvement with gastroenterology, general surgery, possible critical care and general surgery. Based on clinical progress the potential for small bowel vasculitis with spontaneous perforation is high. Sepsis Sepsis Identified: No Time Spent With Patient Time: Total time spent is greater than 50% in coordination of care (as documented) at patient's floor/unit and/or counseling patient:
[2022-03-03] MEDS ORDERED: 0.9 % SODIUM CHLORIDE 1,000 ML IV ONE (18:57)
[2022-03-03] MEDS: OCTREOTIDE ACETATE 100 MCG/ML VIAL SQ SCH (19:30)
[2022-03-03] MEDS: TAMSULOSIN 0.4 MG CAPSULE PO SCH (22:16)
[2022-03-04] MEDS: METOCLOPRAMIDE 10 MG/2 ML VIAL IV SCH ×4 (00:04→17:57)
[2022-03-04] MEDS: MEROPENEM 2 GM in 0.9 % SODIUM CHLORIDE 100 ML IV SCH ×4 (00:04→21:19)
[2022-03-04] MEDS: ALPRAZolam 0.5 MG TABLET PO PRN ×3 (00:05→23:52)
[2022-03-04] MEDS: INSULIN LISPRO 1 UNIT/0.01 ML UNIT SQ SCH ×4 (00:24→18:02)
[2022-03-04] MEDS: ACETAMINOPHEN 1,000 MG/100 ML BAG IV SCH ×5 (01:50→23:51)
[2022-03-04] MEDS ORDERED: LORazepam 2 MG/ML VIAL IV PRN (06:51)
[2022-03-04 07:23] LABS: Basophils # (Auto) 0.16 K/mcL (0.00-0.30); Basophils % (Auto) 1.2 % (0.0-2.0); Eosinophils # (Auto) 0.11 K/mcL (0.00-0.70); Eosinophils % (Auto) 0.8 % (0.0-7.0); Hematocrit 33.7 % (40.1-51.0); Hemoglobin 10.7 g/dL (13.7-17.5); Lymphocytes # (Auto) 2.53 K/mcL (1.50-4.80); Lymphocytes % (Auto) 18.3 % (15.5-49.0); Mean Cell Volume 90.1 fL (80.0-100.0); Mean Corpuscular HGB Conc 31.8 g/dL (31.0-36.0); Mean Platelet Volume 9.9 fL (8.8-12.5); Monocytes # (Auto) 1.99 K/mcL (0.10-0.90); Monocytes % (Auto) 14.4 % (1.0-12.0); Neutrophils % (Auto) 63.4 % (38.0-78.0); Platelet Count 449 K/mcL (140-440); RBC 3.74 M/mcL (4.63-6.08); Red Cell Distribution Width 13.2 % (11.5-14.5); WBC 13.8 K/mcL (4.5-11.0)
[2022-03-04 08:03] LABS: ALT/SGPT 31 U/L (<40); AST/SGOT 26 U/L (<40); Albumin 2.9 gm/dL (3.2-5.2); Albumin/Globulin Ratio 0.7 (1.0-2.3); Alkaline Phosphatase 158 U/L (39-117); Bilirubin,Direct 0.3 mg/dL (<0.3); Bilirubin,Total 0.6 mg/dL (0.1-1.0); Blood Urea Nitrogen 30 mg/dL (8-23); Calcium 8.9 mg/dL (8.6-10.4); Carbon Dioxide 21 mmol/L (22-30); Chloride 102 mmol/L (96-108); Globulin 4.1 gm/dL (2.2-3.7); Glomerular Filtration Rate 59; Glucose 145 mg/dL (70-105); Lactate Dehydrogenase 228 U/L (135-225); Phosphorous 3.4 mg/dL (2.5-4.5); Triglycerides 229 mg/dL (<150); Uric Acid 4.2 mg/dL (2.5-8.0)
[2022-03-04] MEDS: HEPARIN 5,000 UNIT/ML VIAL SQ SCH ×2 (08:10→21:17)
[2022-03-04] MEDS: 0.9 % SODIUM CHLORIDE 10 ML SYRINGE IV SCH ×2 (08:10→21:18)
[2022-03-04] MEDS: amLODIPine 5 MG TABLET PO SCH (08:10)
[2022-03-04] MEDS: CARVEDILOL 12.5 MG TABLET PO SCH ×2 (08:10→17:56)
[2022-03-04] MEDS: OCTREOTIDE ACETATE 100 MCG/ML VIAL SQ SCH ×3 (08:12→21:18)
[2022-03-04] MEDS: NYSTATIN CRM 1 DOSE TUBE TOPICAL SCH ×3 (08:13→21:18)
--- NOTE | 2022-03-04 08:16 | Internal Med Progress Note ---
SUBJECTIVE Subjective Patient information: Note initiated : 03/04/22 at 8:14 am Service Date, if different from initiated Date: [] Patient: Jonas Noble 71 y/o M admitted on 02/18/22 for bowel obstruction- Cholelithiasis. Chief Complaint: [] Principal diagnosis: Small bowel microperforation Interval history: 02/28 Patient does have some drainage into the abdominal wound, discussed with general surgery. Dr. Stephens feels that this communication is extraperitoneal and not intra-abdominal and not an indication for another exploratory surgery. The patient is somewhat volume overloaded, started Lasix 40 mg IV twice daily. Place Rg catheter for diuresis as the patient is retaining urine. 03/01 Patient appears much more comfortable today, diuresed well after receiving IV Lasix. We will continue with Lasix 20 mg IV twice daily for now as the patient is on a clear liquid diet and the plan is to continue TPN. 03/02 No significant events overnight. Discontinued Rg catheter. Added melatonin at bedtime and hydroxyzine as needed for anxiety. 03/03 Patient feels tired today, white blood cell count increased from 12.2-14.3, creatinine increased mildly. Ordered blood cultures x2, urinalysis, chest x- ray. UA did not show any evidence of UTI, chest x-ray did not show any evidence of a pneumonia. Discontinued Lasix. Continues on meropenem per surgery. Receiving TPN and on clear liquid diet. Increased drainage from wound VAC, patient denies increasing abdominal discomfort. Will monitor renal function closely, if creatinine trends up start IV fluid. 03/04 Patient received IV fluid yesterday evening, renal function improved this morning. The patient feels a little better after receiving IV fluid. He continues to receive IV fluid with TPN and is on a clear liquid diet. Dr. Stephens discussed the patient with tertiary care hospitals yesterday for transfer to higher level of care however patient was declined because the surgical staff said the patient surgical management would not change at those facilities. Increased Xanax frequency for anxiety. Physical exam Head: Atraumatic, normal inspection. Eyes: normal appearance, no scleral icterus. Neck: full ROM Respiratory: Saturating well on room air, no respiratory distress Cardiovascular: normal rate and rhythm, S1, S2. GI/Abdominal: Obesely distended abdomen, laparotomy incision covered with wound VAC. Extremities: Minimal pitting edema bilaterally, full range of motion, nontender. Neurological: CN II-XII intact, intact motor, intact sensation. Skin: warm, normal color Constitutional Vitals: Vital Signs Temp Pulse Resp BP Pulse Ox O2 Del Method O2 Flow Rate 97.3 F 73 26 H 135/79 98 1 03/04/22 06:35 03/04/22 06:35 03/04/22 06:35 03/04/22 06:35 03/04/22 06:35 03/04/22 06:35 02/27/22 07:45 Period Temp Pulse Resp BP Sys/Maza Pulse Ox O2 Del Method O2 Flow Rate Last 24 Hr 97.3 F-98.2 F 73-86 20-35 91-136/47-79 91-100 Room Air-Room Air Intake and Output 03/03/22 03/04/22 03/04/22 21:59 05:59 13:59 Intake Total 3279.1417 250 680 Output Total 500 870 Balance 2779.1417 -620 680 Intake & Output: Intake & Output 03/03/22 03/04/22 03/04/22 21:59 05:59 13:59 Intake Total 3279.1417 250 680 Output Total 500 870 Balance 2779.1417 -620 680 Intake: IV 3279.1417 200 200 Sodium Chloride 0.9% 1,000 ml @ 1000 Wide Open IV [facility] Rx#: [id number] Calcium Gluconate 10 Meq 2079.1417 Potassium Chloride 60 Meq Potassium Phosphate 60 Meq Infuvite Adult 10 ml Magnesium Sulfate 16.24 Meq In Clinimix 5 %-20% Solution 2,000 ml @ 85 mls/hr IV DAILY@1600 [facility] Rx#: [id number] Merrem 2 gm In Sodium Chloride 100 100 100 0.9% 100 ml @ 100 mls/hr IV Q8H [facility] Rx#:[id number] Oral 50 480 Output: Drainage 220 Left Abdomen TREVER Drain 10 Medial Abdomen TREVER Drain 10 midline abdominal incision 200 wound vac Void Amount 500 Urine/Stool Mix 650 Other: Urine Appearance Clear Urine Color Yellow Stool Size Smear Stool Color Brown Brown Stool Consistency Loose Loose OBJ DATA Labs CBC & Chem 7: 03/04/22 05:41 03/04/22 05:41 Labs: Abnormal Lab Results 03/04/22 03/04/22 03/03/22 05:41 05:41 14:49 WBC 13.8 H RBC 3.74 L Hgb 10.7 L Hct 33.7 L Plt Count 449 H Immature Gran % (Auto) 1.9 H Lymph % (Auto) Wood % (Auto) 14.4 H Wood # (Auto) 1.99 H Immature Gran # 0.26 H Absolute Neutrophils 8.79 H Sodium 132 L Carbon Dioxide 21 L BUN 30 H 33 H Creatinine 1.3 H Glucose 145 H 150 H Magnesium 2.6 H Direct Bilirubin 0.3 H GGT 142 H Alkaline Phosphatase 158 H Lactate Dehydrogenase 228 H C-Reactive Protein 4.50 H Albumin 2.9 L 2.9 L Globulin 4.1 H Albumin/Globulin Ratio 0.7 L Triglycerides 229 H Urine Occult Blood Hyaline Casts Urine Mucus 03/03/22 03/03/22 03/03/22 14:49 09:15 05:40 WBC 14.1 H RBC 3.82 L Hgb 10.8 L Hct 33.6 L Plt Count 509 H Immature Gran % (Auto) 1.9 H Lymph % (Auto) 14.3 L Wood % (Auto) Wood # (Auto) 1.58 H Immature Gran # 0.27 H Absolute Neutrophils 10.02 H Sodium 131 L Carbon Dioxide BUN 27 H Creatinine 1.3 H Glucose 342 H Magnesium Direct Bilirubin 0.3 H GGT 179 H Alkaline Phosphatase 169 H Lactate Dehydrogenase 241 H C-Reactive Protein Albumin 2.9 L Globulin 4.0 H Albumin/Globulin Ratio 0.7 L Triglycerides 203 H Urine Occult Blood Trace-lysed A Hyaline Casts 3 H Urine Mucus Few A 03/03/22 03/02/22 03/02/22 05:40 05:20 05:20 WBC 14.3 H 12.2 H RBC 3.69 L 3.54 L Hgb 10.6 L 10.2 L Hct 32.4 L 31.7 L Plt Count 499 H 469 H Immature Gran % (Auto) 2.7 H 4.7 H Lymph % (Auto) Wood % (Auto) Wood # (Auto) 1.51 H 1.18 H Immature Gran # 0.39 H 0.57 H Absolute Neutrophils 9.82 H Sodium Carbon Dioxide BUN Creatinine Glucose 275 H Magnesium Direct Bilirubin 0.3 H GGT 73 H Alkaline Phosphatase Lactate Dehydrogenase 253 H C-Reactive Protein Albumin 2.8 L Globulin Albumin/Globulin Ratio 0.8 L Triglycerides 223 H Urine Occult Blood Hyaline Casts Urine Mucus Meds: Medications Albuterol/Ipratropium (Ipratropium/Albuterol 3 Ml Ampul.Neb) 3 ml NEB Q4HP PRN PRN Reason: Shortness Of Breath Last Admin: 03/03/22 08:02 Dose: 3 ml Alprazolam (Alprazolam 0.5 Mg Tablet) 1 mg PO Q6HP PRN PRN Reason: Anxiety Last Admin: 03/04/22 08:09 Dose: 1 mg Amlodipine Besylate (Amlodipine 5 Mg Tablet) 5 mg PO DAILY [facility] Last Admin: 03/04/22 08:10 Dose: 5 mg Carvedilol (Carvedilol 12.5 Mg Tablet) 25 mg PO BIDCC [facility] Last Admin: 03/04/22 08:10 Dose: 25 mg Dextrose (Dextrose 50% 50 Ml Syringe) 25 - 50 ml IV UD PRN PRN Reason: Hypoglycemia Diagnostic Test (Pha) (Accu-Chek 1 Each Strip) 1 each FS Q6 [facility] Last Admin: 03/04/22 05:50 Dose: 1 each Heparin Sodium (Porcine) (Heparin 5,000 Unit/Ml Vial) 5,000 unit SQ Q12 [facility] Last Admin: 03/04/22 08:10 Dose: 5,000 unit Heparin Sodium (Porcine) (Heparin Flush 10 Units/Ml 5 Ml Syringe) 2 ml IV Q12 [facility] Last Admin: 03/04/22 08:10 Dose: 2 ml Hydralazine HCl (Hydralazine 20 Mg/Ml Vial) 20 mg IV Q4HP PRN PRN Reason: Hypertension Last Admin: 02/27/22 21:08 Dose: 20 mg Hydromorphone HCl (Hydromorphone 1 Mg/Ml Syringe) 0 mg IV Q2HP PRN; Protocol PRN Reason: Per Pain Protocol Last Admin: 03/03/22 04:20 Dose: 1 mg Hydroxyzine HCl (Hydroxyzine 25 Mg Tablet) 25 mg PO TIDP PRN PRN Reason: Allergic Symptoms Acetaminophen (Ofirmev) 1,000 mg in 100 mls @ 200 mls/hr IV Q6H [facility]; Protocol Last Infusion: 03/04/22 07:17 Dose: Infused Meropenem 2 gm/ Sodium (Chloride) 100 mls @ 100 mls/hr IV Q8H [facility]; Protocol Last Infusion: 03/04/22 06:54 Dose: Infused Fat Emulsion Intravenous 250 (ml/ Premix) 250 mls @ 25 mls/hr IV MoWeFr@1600 [facility] Last Infusion: 03/03/22 02:27 Dose: Infused Calcium Gluconate 10 meq/Potassium Chloride 40 meq/Potassium Phosphate 40 meq/Multivitamins/Minerals 10 ml/Magnesium Sulfate 8.12 meq/Amino Acids 2,062.5962 mls @ 85 mls/hr IV DAILY@1600 [facility] Last Admin: 03/03/22 16:50 Dose: 85 mls/hr Insulin Human Lispro (Insulin Lispro 1 Unit/0.01 Ml Unit) 0 unit SQ Q6 [facility]; Protocol Last Admin: 03/04/22 05:50 Dose: Not Given Labetalol HCl (Labetalol 5 Mg/Ml Ml) 10 - 20 mg IV Q2HP PRN PRN Reason: Hypertension Last Admin: 02/27/22 23:42 Dose: 20 mg Melatonin (Melatonin 3 Mg Tablet) 3 mg PO HSP PRN PRN Reason: Sleep Metoclopramide HCl (Metoclopramide 10 Mg/2 Ml Vial) 10 mg IV Q6 [facility] Last Admin: 03/04/22 05:50 Dose: 10 mg Nystatin (Nystatin Crm 1 Dose Tube) 1 dose TOPICAL TID [facility] Last Admin: 03/04/22 08:13 Dose: 1 dose Octreotide Acetate (Octreotide Acetate 100 Mcg/Ml Vial) 100 mcg SQ TID [facility] Last Admin: 03/04/22 08:12 Dose: 100 mcg Promethazine HCl (Promethazine 25 Mg/Ml Vial) 12.5 mg IV Q4HP PRN; Protocol PRN Reason: Nausea/Vomiting Last Admin: 03/03/22 19:30 Dose: 12.5 mg Scopolamine (Scopolamine 1 Patch Patch) 1 patch TOPICAL Q72H [facility] Last Admin: 03/03/22 16:56 Dose: 1 patch Sodium Chloride (0.9 % Sodium Chloride 10 Ml Syringe) 10 ml IV Q12 [facility] Last Admin: 03/04/22 08:10 Dose: 10 ml Sodium Chloride (0.9 % Sodium Chloride 10 Ml Syringe) 10 ml IV UD PRN PRN Reason: FLUSH Last Admin: 02/26/22 05:18 Dose: 10 ml Tamsulosin HCl (Tamsulosin 0.4 Mg Capsule) 0.4 mg PO HS [facility] Last Admin: 03/03/22 22:16 Dose: 0.4 mg Trazodone HCl (Trazodone Hcl 50 Mg Tablet) 50 mg PO HSP PRN PRN Reason: Insomnia A/P Assessment and plan (1) Cholelithiasis with choledocholithiasis: Status: Acute (2) Benign hypertension with CKD (chronic kidney disease) stage III: Status: Chronic Comment: Baseline creatinine clearance 45 to 50 cc/min with a bland urinalysis Blood pressure goal 130 over (3) Stage 1 acute kidney injury: Status: Acute (4) Pneumonia involving left lung: Status: Acute (5) BPH w urinary obs/LUTS: Status: Acute (6) Acute respiratory failure with hypoxia: Status: Acute Narrative A/P Narrative: Assessment and Plans: *Cholelithiasis and choledocholithiasis: s/p lap converted to open cholecystectomy (02/18) *Microperferations/small bowel leak/hematoma: s/p Ex-lap (02/23) *Total parenteral nutrition *Essential hypertension *Resolved volume overload *Resolved acute hypoxic respiratory failure *Resolved VINCENT on CKD III: *Anemia: *Obesity: BMI 40 *Urinary retention P: -Antibiotic per general surgery. -Follow-up blood cultures. -Monitor CBC and renal function. -Monitor volume status while receiving TPN. -Electrolyte replacement as needed -cont Amlodipine, and coreg (increase), monitor BP -Total parenteral nutrition per surgery. -Diet per surgery-clear liquid diet. -Incentive spirometry -flomax -pt/ot -ppx: heparin / ppi -CODE STATUS: DNR/DNI -Disposition: Possibly [facility]. Time Spent With Patient Time: Total time spent is greater than 50% in coordination of care (as documented) at patient's floor/unit and/or counseling patient: QUALITY VTE Deep Vein Thrombosis/Pulmonary Embolism Present on Admission: No
[2022-03-04] MEDS: HYDROmorphone 1 MG/ML SYRINGE IV PRN ×2 (11:29→17:53)
--- NOTE | 2022-03-04 11:58 | General Surgery Progress Note ---
SUBJECTIVE Subjective Patient information: Note initiated : 03/04/22 at 11:49 am Service Date, if different from initiated Date: [] Patient: Jonas Noble 71 y/o M admitted on 02/18/22 for bowel obstruction- Cholelithiasis. Chief Complaint: [] Principal diagnosis: Small bowel microperforation; enterocutaneous fistula Interval history: Patient is clinically stable however he still has significant output through his fistula. I discussed his situation with 2 surgeons at [place] [facility] on yesterday and they also agree that he does not need to have transfer to their facility since there is no indication for reoperation. He is still in the acute phase and will need continued close follow-up with IV antibiotics, TPN, bowel rest. Because of nausea and vomiting his fluid volume will have to be increased to prevent deterioration in renal status. He was given a bolus of IV fluids on yesterday and his creatinine is 1.2. He is afebrile. I discussed with patient that he will not be transferred at this time but also informed him that his LDL is long-term local wound care until his fistula closes. White blood count 13.8; hemoglobin 10.7, hematocrit 33.7, BUN 30, creatinine 1.2, oxygen saturation 97% on room air. TREVER output is minimal and about 10 cc. He continues to have soft bowel movements. He has not had any emesis since yesterday. Constitutional Vitals: Vital Signs Temp Pulse Resp BP Pulse Ox O2 Del Method O2 Flow Rate 98.1 F 69 22 129/71 98 1 03/04/22 11:16 03/04/22 11:16 03/04/22 11:16 03/04/22 11:16 03/04/22 11:16 03/04/22 11:16 02/27/22 07:45 Period Temp Pulse Resp BP Sys/Maza Pulse Ox O2 Del Method O2 Flow Rate Last 24 Hr 97.3 F-98.2 F 69-86 20-35 91-136/47-79 94-100 Room Air-Room Air Intake and Output 03/03/22 03/04/22 03/04/22 21:59 05:59 13:59 Intake Total 3279.1417 250 680 Output Total 500 870 500 Balance 2779.1417 -620 180 Intake & Output: Intake & Output 03/03/22 03/04/22 03/04/22 21:59 05:59 13:59 Intake Total 3279.1417 250 680 Output Total 500 870 500 Balance 2779.1417 -620 180 Intake: IV 3279.1417 200 200 Sodium Chloride 0.9% 1,000 ml @ 1000 Wide Open IV [facility] Rx#: [id number] Calcium Gluconate 10 Meq 2079.1417 Potassium Chloride 60 Meq Potassium Phosphate 60 Meq Infuvite Adult 10 ml Magnesium Sulfate 16.24 Meq In Clinimix 5 %-20% Solution 2,000 ml @ 85 mls/hr IV DAILY@1600 [facility] Rx#: [id number] Merrem 2 gm In Sodium Chloride 100 100 100 0.9% 100 ml @ 100 mls/hr IV Q8H [facility] Rx#:[id number] Oral 50 480 Output: Drainage 220 Left Abdomen TREVER Drain 10 Medial Abdomen TREVER Drain 10 midline abdominal incision 200 wound vac Void Amount 500 500 Urine/Stool Mix 650 Other: Urine Appearance Clear Urine Color Yellow Stool Size Smear Small Stool Color Brown Brown Yellow Green Stool Consistency Loose Loose # of times incontinent of 1 Bowels ENT ENT exam: Present mucous membranes moist, normal external ear exam and normal oropharynx Neck Neck exam: Present full ROM and normal inspection Respiratory Respiratory exam: Present normal respiratory exam and CTAB; Absent rales, rhonchi or wheezes Cardiovascular Cardiovascular exam: Present normal rate and rhythm, RRR, +S1 and +S2; Absent JVD GI/Abdominal GI/Abdominal exam: Present normal bowel sounds, distended and tenderness (Mild tenderness in upper third of incision with crepitus extending in the subcutaneous plane suggesting dissection of tissue with secondary infection) Additional comments: He is developing good granulations in the upper third of the incision and has a partially controlled fistula in the middle third. Cultures were taken to determine the causative organism and. Extremities Exam Extremities exam: Present normal inspection and neurovascular intact; Absent pedal edema or tenderness Neurological Exam Neurological exam: Present oriented X3 and reflexes normal; Absent motor sensory deficit Psychiatric Psychiatric exam: Present normal affect and normal mood A/P Assessment and plan (1) Intestinal fistula: Status: Acute (2) Anxiety disorder due to general medical condition with panic attack: Status: Acute (3) Small bowel perforation: Status: Acute (4) Postoperative ileus: Status: Acute (5) Stage 1 acute kidney injury: Status: Acute Plan Octreotide 100 mcg 3 times daily Continue wound VAC changes every 3 days Continue antibiotics pending future cultures Continue TPN and hold clear liquids for the time being Time Spent With Patient Time: Total time spent is greater than 50% in coordination of care (as documented) at patient's floor/unit and/or counseling patient:
--- NOTE | 2022-03-04 12:45 | Internal Med Progress Note ---
SUBJECTIVE Subjective Patient information: Note initiated : 03/04/22 at 12:42 pm Service Date, if different from initiated Date: [] Patient: Jonas Noble 71 y/o M admitted on 02/18/22 for bowel obstruction- Cholelithiasis. Chief Complaint: [] Principal diagnosis: Small bowel microperforation; enterocutaneous fistula Interval history: Patient is a 71 years old gentleman history of essential hypertensions, chronic kidney disease stage III, BPH, presenting with postprandial abdominal pain on February 15, 2022. CT of the abdomen at admission showing dilated common bile duct and intrahepatic ducts with a 6 mm distal common bile duct stone. He also has multiple stones in the gallbladder. Emergent ERCP was performed general surgeon Dr. Stephens performed laparoscopic converted to open cholecystectomy on Friday, February 18, 2022. Patient is tolerated the surgery relatively okay. This morning at shift change around 7 AM, patient was found by his nurse to be tachycardic and tachypneic with rate of breathing and heart rate in the 30s and 140s, respectively. Patient is also showing labored breathing. Rapid response was called and patient was transferred to PCU for higher level of care. Patient is currently is complaining of increased shortness of breath. Abdominal pain is being adequately controlled with IV Tylenol and Dilaudid. Emergent chest x- ray showing acute left-sided infiltrates consistent with pneumonia. Abdominal CT showing bowel gas pattern unremarkable. And no evidence of mechanical small bowel obstructions. CT angiogram chest and abdomen pending at the moment. 02/21: CTA chest: negative of PE, but shows bilateral lung bases infiltrates suggestive of pneumonia. Afebrile overnight. Patient is currently on 1.5-2L/min nasal cannula oxygen. Cultures no growth to date. WBC down trended 17.8-->13.8. Serum Cr worsen from 1.5-->2.4. Patient is complaining of 3 out of 10 abdominal pain. He is having much improved degree of shortness of breath. He denies any cough or wheezing. He denies any fever, chills, or diaphoresis. He denies any nausea or vomiting. NG tube still in place. The patient still currently on n.p.o. status. Patient has not passed any bowel movement yet. Continue Zosyn while monitoring culture results. Repeat chest x-ray today. Continue IV fluid, avoid nephrotoxic agents, and repeat CMP in the morning to trend kidney functions. Rest of the surgical management as per primary team. 02/22: Afebrile overnight. Patient is currently on room air. Blood culture no growth today. Repeat chest x-ray from yesterday showing nearly complete improvement of the infiltrates seen from previous exams. Patient's degree of shortness of breath has greatly improved. Denies any chest pain. Denies any coughing or respiratory wheezings. Denies any fever chills or diaphoresis. He is still made n.p.o. status as per general surgeon Dr. Stephens. 02/23 Patient found to have drainage from incision site this morning with tachycardia. Patient was emergently taken back to the OR found to have small bowel leak and abdominal wall cellulitis with microperforation of the small bowel x3 with localized peritonitis. Patient transferred back to PCU after procedure. Patient had ex lap with closure of Microbrush x3 evacuation of hematoma. Wound VAC placed. Has cough and some shortness of breath. 02/24 Patient feeling much better today. Starting to pass gas. Good urine output with Lasix yesterday. Liter nasal cannula and likely to come off on room air. TREVER drains in place. Renal function stable. 02/25 Patient passing gas no bowel movement yet. No other new complaints other than he said he had a severe nightmare last night and poor sleep but otherwise no new complaints. Patient is on room air. Mild hypokalemia. Renal function looks good. 02/26 No overnight event or new complaints. However he is quite sleepy this morning and per nursing notes he did not sleep well last night. Patient had a bump in his leukocytosis today. Potassium is low and will be replaced. No function looks good today. Other actions per surgery. 02/27 Patient retaining urine after Rg came out. Patient refusing straight cath. We will give Flomax and continue as needed bladder scans. Patient drowsy this morning does complain of little shortness of breath. Leukocytosis worsened today. 02/28 Patient does have some drainage into the abdominal wound, discussed with general surgery. Dr. Stephens feels that this communication is extraperitoneal and not intra-abdominal and not an indication for another exploratory surgery. The patient is somewhat volume overloaded, started Lasix 40 mg IV twice daily. Place Rg catheter for diuresis as the patient is retaining urine. 03/01 Patient appears much more comfortable today, diuresed well after receiving IV Lasix. We will continue with Lasix 20 mg IV twice daily for now as the patient is on a clear liquid diet and the plan is to continue TPN. 03/02 No significant events overnight. Discontinued Rg catheter. Added melatonin at bedtime and hydroxyzine as needed for anxiety. 03/03 Patient feels tired today, white blood cell count increased from 12.2-14.3, creatinine increased mildly. Ordered blood cultures x2, urinalysis, chest x- ray. UA did not show any evidence of UTI, chest x-ray did not show any evidence of a pneumonia. Discontinued Lasix. Continues on meropenem per surgery. Receiving TPN and on clear liquid diet. Increased drainage from wound VAC, patient denies increasing abdominal discomfort. Will monitor renal function closely, if creatinine trends up start IV fluid. 03/04 Patient received IV fluid yesterday evening, renal function improved this morning. The patient feels a little better after receiving IV fluid. He continues to receive IV fluid with TPN and is on a clear liquid diet. Dr. Stephens [facility] the [facility] for transfer to higher level of care however patient was declined because the surgical staff said the patient surgical management would not change at those facilities. Increased Xanax frequency for anxiety. Review of Systems: denies headache/fever/chills/nausea/vomiting/chest pain/diarrhea. Otherwise see above. Constitutional Vitals: Vital Signs Temp Pulse Resp BP Pulse Ox O2 Del Method O2 Flow Rate 98.1 F 69 22 129/71 98 1 03/04/22 11:16 03/04/22 11:16 03/04/22 11:16 03/04/22 11:16 03/04/22 11:16 03/04/22 11:16 02/27/22 07:45 Period Temp Pulse Resp BP Sys/Maza Pulse Ox O2 Del Method O2 Flow Rate Last 24 Hr 97.3 F-98.2 F 69-80 20-35 91-136/47-79 94-99 Room Air-Room Air Intake and Output 03/04/22 03/04/22 03/04/22 03:59 11:59 19:59 Intake Total 1300 730 Output Total 350 1520 Balance 950 -790 Intake & Output: Intake & Output 03/04/22 03/04/22 03/04/22 03:59 11:59 19:59 Intake Total 1300 730 Output Total 350 1520 Balance 950 -790 Intake: IV 1300 200 Sodium Chloride 0.9% 1,000 ml @ 1000 Wide Open IV BOLUS ONE Rx#: [id number] Merrem 2 gm In Sodium Chloride 100 100 0.9% 100 ml @ 100 mls/hr IV Q8H RODRIGUE Rx#:[id number] Oral 530 Output: Drainage 720 Left Abdomen TREVER Drain 10 Medial Abdomen TREVER Drain 10 midline abdominal incision 700 wound vac Void Amount 500 Urine/Stool Mix 350 300 Other: Stool Size Small Stool Color Brown Yellow Green Stool Consistency Liquid Loose # of times incontinent of 1 Bowels Exam: General: Drowsy, no acute Distress, obese Eyes/N/T: EOMI, Head/Neck: neck supple, CV: RRR, No murmurs, Pulm: Clear b/l, no wheezing/rhonchi/rales, Abd: Distended, hypoactiveBS x4, TREVER drains and wound VAC in place Ext: no clubbing/cyanosis, b/l LE trace-1+ edema improved Neuro: Drowsy , no focal deficits, moves all extremities, Skin: warm/dry OBJ DATA Labs CBC & Chem 7: 03/04/22 05:41 03/04/22 05:41 Labs: Abnormal Lab Results 03/04/22 03/04/22 03/03/22 05:41 05:41 14:49 WBC 13.8 H RBC 3.74 L Hgb 10.7 L Hct 33.7 L Plt Count 449 H Immature Gran % (Auto) 1.9 H Lymph % (Auto) [place] % (Auto) 14.4 H [place] # (Auto) 1.99 H Immature Gran # 0.26 H Absolute Neutrophils 8.79 H Sodium 132 L Carbon Dioxide 21 L BUN 30 H 33 H Creatinine 1.3 H Glucose 145 H 150 H Magnesium 2.6 H Direct Bilirubin 0.3 H GGT 142 H Alkaline Phosphatase 158 H Lactate Dehydrogenase 228 H C-Reactive Protein 4.50 H Albumin 2.9 L 2.9 L Globulin 4.1 H Albumin/Globulin Ratio 0.7 L Triglycerides 229 H Urine Occult Blood Hyaline Casts Urine Mucus 03/03/22 03/03/22 03/03/22 14:49 09:15 05:40 WBC 14.1 H RBC 3.82 L Hgb 10.8 L Hct 33.6 L Plt Count 509 H Immature Gran % (Auto) 1.9 H Lymph % (Auto) 14.3 L [place] % (Auto) [place] # (Auto) 1.58 H Immature Gran # 0.27 H Absolute Neutrophils 10.02 H Sodium 131 L Carbon Dioxide BUN 27 H Creatinine 1.3 H Glucose 342 H Magnesium Direct Bilirubin 0.3 H GGT 179 H Alkaline Phosphatase 169 H Lactate Dehydrogenase 241 H C-Reactive Protein Albumin 2.9 L Globulin 4.0 H Albumin/Globulin Ratio 0.7 L Triglycerides 203 H Urine Occult Blood Trace-lysed A Hyaline Casts 3 H Urine Mucus Few A 03/03/22 03/02/22 03/02/22 05:40 05:20 05:20 WBC 14.3 H 12.2 H RBC 3.69 L 3.54 L Hgb 10.6 L 10.2 L Hct 32.4 L 31.7 L Plt Count 499 H 469 H Immature Gran % (Auto) 2.7 H 4.7 H Lymph % (Auto) [place] % (Auto) [place] # (Auto) 1.51 H 1.18 H Immature Gran # 0.39 H 0.57 H Absolute Neutrophils 9.82 H Sodium Carbon Dioxide BUN Creatinine Glucose 275 H Magnesium Direct Bilirubin 0.3 H GGT 73 H Alkaline Phosphatase Lactate Dehydrogenase 253 H C-Reactive Protein Albumin 2.8 L Globulin Albumin/Globulin Ratio 0.8 L Triglycerides 223 H Urine Occult Blood Hyaline Casts Urine Mucus Meds: Medications Albuterol/Ipratropium (Ipratropium/Albuterol 3 Ml Ampul.Neb) 3 ml NEB Q4HP PRN PRN Reason: Shortness Of Breath Last Admin: 03/03/22 08:02 Dose: 3 ml Alprazolam (Alprazolam 0.5 Mg Tablet) 1 mg PO Q6HP PRN PRN Reason: Anxiety Last Admin: 03/04/22 08:09 Dose: 1 mg Amlodipine Besylate (Amlodipine 5 Mg Tablet) 5 mg PO DAILY [facility] Last Admin: 03/04/22 08:10 Dose: 5 mg Carvedilol (Carvedilol 12.5 Mg Tablet) 25 mg PO BIDCC [facility] Last Admin: 03/04/22 08:10 Dose: 25 mg Dextrose (Dextrose 50% 50 Ml Syringe) 25 - 50 ml IV UD PRN PRN Reason: Hypoglycemia Diagnostic Test (Pha) (Accu-Chek 1 Each Strip) 1 each FS Q6 RODRIGUE Last Admin: 03/04/22 05:50 Dose: 1 each Heparin Sodium (Porcine) (Heparin 5,000 Unit/Ml Vial) 5,000 unit SQ Q12 RODRIGUE Last Admin: 03/04/22 08:10 Dose: 5,000 unit Heparin Sodium (Porcine) (Heparin Flush 10 Units/Ml 5 Ml Syringe) 2 ml IV Q12 RODRIGUE Last Admin: 03/04/22 08:10 Dose: 2 ml Hydralazine HCl (Hydralazine 20 Mg/Ml Vial) 20 mg IV Q4HP PRN PRN Reason: Hypertension Last Admin: 02/27/22 21:08 Dose: 20 mg Hydromorphone HCl (Hydromorphone 1 Mg/Ml Syringe) 0 mg IV Q2HP PRN; Protocol PRN Reason: Per Pain Protocol Last Admin: 03/04/22 11:29 Dose: 1 mg Hydroxyzine HCl (Hydroxyzine 25 Mg Tablet) 25 mg PO TIDP PRN PRN Reason: Allergic Symptoms Acetaminophen (Ofirmev) 1,000 mg in 100 mls @ 200 mls/hr IV Q6H [facility]; Protocol Last Infusion: 03/04/22 07:17 Dose: Infused Meropenem 2 gm/ Sodium (Chloride) 100 mls @ 100 mls/hr IV Q8H [facility]; Protocol Last Infusion: 03/04/22 06:54 Dose: Infused Fat Emulsion Intravenous 250 (ml/ Premix) 250 mls @ 25 mls/hr IV MoWeFr@1600 RODRIGUE Last Infusion: 03/03/22 02:27 Dose: Infused Calcium Gluconate 10 meq/Potassium Chloride 40 meq/Potassium Phosphate 40 meq/Multivitamins/Minerals 10 ml/Magnesium Sulfate 8.12 meq/Amino Acids 2,062.5962 mls @ 85 mls/hr IV DAILY@1600 RODRIGUE Stop: 03/04/22 15:59 Last Admin: 03/03/22 16:50 Dose: 85 mls/hr Calcium Gluconate 10 meq/Potassium Chloride 20 meq/Potassium Phosphate 40 meq/Multivitamins/Minerals 10 ml/Magnesium Sulfate 4.06 meq/Sodium Acetate 30 meq/ Amino Acids 2,066.5962 mls @ 85 mls/hr IV DAILY@1600 [facility] Insulin Human Lispro (Insulin Lispro 1 Unit/0.01 Ml Unit) 0 unit SQ Q6 [facility]; Protocol Last Admin: 03/04/22 05:50 Dose: Not Given Labetalol HCl (Labetalol 5 Mg/Ml Ml) 10 - 20 mg IV Q2HP PRN PRN Reason: Hypertension Last Admin: 02/27/22 23:42 Dose: 20 mg Melatonin (Melatonin 3 Mg Tablet) 3 mg PO HSP PRN PRN Reason: Sleep Metoclopramide HCl (Metoclopramide 10 Mg/2 Ml Vial) 10 mg IV Q6 [facility] Last Admin: 03/04/22 05:50 Dose: 10 mg Nystatin (Nystatin Crm 1 Dose Tube) 1 dose TOPICAL TID [facility] Last Admin: 03/04/22 08:13 Dose: 1 dose Octreotide Acetate (Octreotide Acetate 100 Mcg/Ml Vial) 100 mcg SQ TID [facility] Last Admin: 03/04/22 08:12 Dose: 100 mcg Promethazine HCl (Promethazine 25 Mg/Ml Vial) 12.5 mg IV Q4HP PRN; Protocol PRN Reason: Nausea/Vomiting Last Admin: 03/03/22 19:30 Dose: 12.5 mg Scopolamine (Scopolamine 1 Patch Patch) 1 patch TOPICAL Q72H [facility] Last Admin: 03/03/22 16:56 Dose: 1 patch Sodium Chloride (0.9 % Sodium Chloride 10 Ml Syringe) 10 ml IV Q12 [facility] Last Admin: 03/04/22 08:10 Dose: 10 ml Sodium Chloride (0.9 % Sodium Chloride 10 Ml Syringe) 10 ml IV UD PRN PRN Reason: FLUSH Last Admin: 02/26/22 05:18 Dose: 10 ml Tamsulosin HCl (Tamsulosin 0.4 Mg Capsule) 0.4 mg PO HS [facility] Last Admin: 03/03/22 22:16 Dose: 0.4 mg Trazodone HCl (Trazodone Hcl 50 Mg Tablet) 50 mg PO HSP PRN PRN Reason: Insomnia A/P Narrative A/P Narrative: Assessment and Plans: *Cholelithiasis and choledocholithiasis: s/p lap converted to open cholecystectomy (02/18) -per Surgeon *Microperferations/small bowel leak/hematoma: s/p Ex-lap (02/23) *Post-Op Ileus: *Acute hypoxic respiratory failure, post operative: resolved likely atelectasis and volume overload *PNA: resolved *Essential HTN: elevated but improving *VINCENT on CKD III: fluctuating with events, but now improving *Anemia: *Metabolic acidosis: improved *Hypokalemia: *Obesity: BMI 40 *UR: P: -abx per surgery -Monitor CBC and renal function. -Monitor volume status while receiving TPN. -Electrolyte replacement as needed -Incentive spirometry,-prn Supplemental oxygen -cont Amlodipine, added coreg, monitor BP -flomax started -pt/ot -ppx: heparin / ppi DNR Time Spent With Patient Time: Total time spent is greater than 50% in coordination of care (as documented) at patient's floor/unit and/or counseling patient: QUALITY VTE Deep Vein Thrombosis/Pulmonary Embolism Present on Admission: No
[2022-03-04] MEDS: CALCIUM GLUCONATE IV SCH (16:20)
[2022-03-04] MEDS: MVI IV SCH (16:20)
[2022-03-04] MEDS: POTASSIUM PHOSPHATE IV SCH (16:20)
[2022-03-04] MEDS: POTASSIUM CHLORIDE IV SCH (16:20)
[2022-03-04] MEDS: FAT EMULSION 20% 250 ML in PREMIX 1 BAG IV SCH (16:20)
[2022-03-04] MEDS: [UNRECOGNIZED DRUG - OTHER] IV SCH (16:20)
[2022-03-04] MEDS: TAMSULOSIN 0.4 MG CAPSULE PO SCH (21:17)
[2022-03-05] MEDS: METOCLOPRAMIDE 10 MG/2 ML VIAL IV SCH ×4 (00:06→17:36)
[2022-03-05] MEDS: INSULIN LISPRO 1 UNIT/0.01 ML UNIT SQ SCH ×4 (00:18→17:47)
[2022-03-05] MEDS: MEROPENEM 2 GM in 0.9 % SODIUM CHLORIDE 100 ML IV SCH ×3 (05:10→22:55)
[2022-03-05] MEDS: CARVEDILOL 12.5 MG TABLET PO SCH ×2 (07:05→17:34)
[2022-03-05] MEDS: ALPRAZolam 0.5 MG TABLET PO PRN ×2 (07:06→21:06)
[2022-03-05] MEDS: ACETAMINOPHEN 1,000 MG/100 ML BAG IV SCH ×3 (07:18→21:07)
[2022-03-05 07:30] LABS: Basophils # (Auto) 0.17 K/mcL (0.00-0.30); Basophils % (Auto) 1.7 % (0.0-2.0); Eosinophils # (Auto) 0.14 K/mcL (0.00-0.70); Eosinophils % (Auto) 1.4 % (0.0-7.0); Hematocrit 31.9 % (40.1-51.0); Hemoglobin 10.1 g/dL (13.7-17.5); Lymphocytes # (Auto) 2.14 K/mcL (1.50-4.80); Lymphocytes % (Auto) 20.9 % (15.5-49.0); Mean Cell Volume 89.6 fL (80.0-100.0); Mean Corpuscular HGB Conc 31.7 g/dL (31.0-36.0); Mean Platelet Volume 9.9 fL (8.8-12.5); Monocytes # (Auto) 1.59 K/mcL (0.10-0.90); Monocytes % (Auto) 15.6 % (1.0-12.0); Neutrophils % (Auto) 58.9 % (38.0-78.0); Platelet Count 458 K/mcL (140-440); RBC 3.56 M/mcL (4.63-6.08); WBC 10.2 K/mcL (4.5-11.0)
--- NOTE | 2022-03-05 07:36 | Internal Med Progress Note ---
SUBJECTIVE Subjective Patient information: Note initiated : 03/05/22 at 7:34 am Service Date, if different from initiated Date: [] Patient: Jonas Noble 72 y/o M admitted on 02/18/22 for bowel obstruction- Cholelithiasis. Chief Complaint: [] Principal diagnosis: Small bowel microperforation; enterocutaneous fistula Interval history: Patient is a 71 years old gentleman history of essential hypertensions, chronic kidney disease stage III, BPH, presenting with postprandial abdominal pain on February 15, 2022. CT of the abdomen at admission showing dilated common bile duct and intrahepatic ducts with a 6 mm distal common bile duct stone. He also has multiple stones in the gallbladder. Emergent ERCP was performed general surgeon Dr. Stephens performed laparoscopic converted to open cholecystectomy on Friday, February 18, 2022. Patient is tolerated the surgery relatively okay. This morning at shift change around 7 AM, patient was found by his nurse to be tachycardic and tachypneic with rate of breathing and heart rate in the 30s and 140s, respectively. Patient is also showing labored breathing. Rapid response was called and patient was transferred to PCU for higher level of care. Patient is currently is complaining of increased shortness of breath. Abdominal pain is being adequately controlled with IV Tylenol and Dilaudid. Emergent chest x- ray showing acute left-sided infiltrates consistent with pneumonia. Abdominal CT showing bowel gas pattern unremarkable. And no evidence of mechanical small bowel obstructions. CT angiogram chest and abdomen pending at the moment. 02/21: CTA chest: negative of PE, but shows bilateral lung bases infiltrates suggestive of pneumonia. Afebrile overnight. Patient is currently on 1.5-2L/min nasal cannula oxygen. Cultures no growth to date. WBC down trended 17.8-->13.8. Serum Cr worsen from 1.5-->2.4. Patient is complaining of 3 out of 10 abdominal pain. He is having much improved degree of shortness of breath. He denies any cough or wheezing. He denies any fever, chills, or diaphoresis. He denies any nausea or vomiting. NG tube still in place. The patient still currently on n.p.o. status. Patient has not passed any bowel movement yet. Continue Zosyn while monitoring culture results. Repeat chest x-ray today. Continue IV fluid, avoid nephrotoxic agents, and repeat CMP in the morning to trend kidney functions. Rest of the surgical management as per primary team. 02/22: Afebrile overnight. Patient is currently on room air. Blood culture no growth today. Repeat chest x-ray from yesterday showing nearly complete improvement of the infiltrates seen from previous exams. Patient's degree of shortness of breath has greatly improved. Denies any chest pain. Denies any coughing or respiratory wheezings. Denies any fever chills or diaphoresis. He is still made n.p.o. status as per general surgeon Dr. Stephens. 02/23 Patient found to have drainage from incision site this morning with tachycardia. Patient was emergently taken back to the OR found to have small bowel leak and abdominal wall cellulitis with microperforation of the small bowel x3 with localized peritonitis. Patient transferred back to PCU after procedure. Patient had ex lap with closure of Microbrush x3 evacuation of hematoma. Wound VAC placed. Has cough and some shortness of breath. 02/24 Patient feeling much better today. Starting to pass gas. Good urine output with Lasix yesterday. Liter nasal cannula and likely to come off on room air. TREVER drains in place. Renal function stable. 02/25 Patient passing gas no bowel movement yet. No other new complaints other than he said he had a severe nightmare last night and poor sleep but otherwise no new complaints. Patient is on room air. Mild hypokalemia. Renal function looks good. 02/26 No overnight event or new complaints. However he is quite sleepy this morning and per nursing notes he did not sleep well last night. Patient had a bump in his leukocytosis today. Potassium is low and will be replaced. No function looks good today. Other actions per surgery. 02/27 Patient retaining urine after Rg came out. Patient refusing straight cath. We will give Flomax and continue as needed bladder scans. Patient drowsy this morning does complain of little shortness of breath. Leukocytosis worsened today. 02/28 Patient does have some drainage into the abdominal wound, discussed with general surgery. Dr. Stephens feels that this communication is extraperitoneal and not intra-abdominal and not an indication for another exploratory surgery. The patient is somewhat volume overloaded, started Lasix 40 mg IV twice daily. Place Rg catheter for diuresis as the patient is retaining urine. 03/01 Patient appears much more comfortable today, diuresed well after receiving IV Lasix. We will continue with Lasix 20 mg IV twice daily for now as the patient is on a clear liquid diet and the plan is to continue TPN. 03/02 No significant events overnight. Discontinued Rg catheter. Added melatonin at bedtime and hydroxyzine as needed for anxiety. 03/03 Patient feels tired today, white blood cell count increased from 12.2-14.3, creatinine increased mildly. Ordered blood cultures x2, urinalysis, chest x- ray. UA did not show any evidence of UTI, chest x-ray did not show any evidence of a pneumonia. Discontinued Lasix. Continues on meropenem per surgery. Receiving TPN and on clear liquid diet. Increased drainage from wound VAC, patient denies increasing abdominal discomfort. Will monitor renal function closely, if creatinine trends up start IV fluid. 03/04 Patient received IV fluid yesterday evening, renal function improved this morning. The patient feels a little better after receiving IV fluid. He continues to receive IV fluid with TPN and is on a clear liquid diet. Dr. Stephens discussed the patient with [facility] yesterday for transfer to higher level of care however patient was declined because the surgical staff said the patient surgical management would not change at those facilities. Increased Xanax frequency for anxiety. 03/05 No change overnight. Patient feels about the same. No bowel movements or flatus. Leukocytosis resolved today. Review of Systems: denies headache/fever/chills/nausea/vomiting/chest pain/diarrhea. Otherwise see above. Constitutional Vitals: Vital Signs Temp Pulse Resp BP Pulse Ox O2 Del Method O2 Flow Rate 97.7 F 76 20 141/67 98 1 03/05/22 07:26 03/05/22 07:26 03/05/22 07:26 03/05/22 07:26 03/05/22 07:26 03/05/22 07:26 02/27/22 07:45 Period Temp Pulse Resp BP Sys/Maza Pulse Ox O2 Del Method O2 Flow Rate Last 24 Hr 97.6 F-98.8 F 69-86 20-28 127-144/61-98 95-98 Room Air-Room Air Intake and Output 03/04/22 03/05/22 03/05/22 19:59 03:59 11:59 Intake Total 2357 200 Output Total 650 1033 Balance 1707 -833 Weight 122.561 kg 124.738 kg Intake & Output: Intake & Output 03/04/22 03/05/22 03/05/22 19:59 03:59 11:59 Intake Total 2357 200 Output Total 650 1033 Balance 1707 -833 Weight 122.561 kg 124.738 kg Intake: IV 2357 200 Calcium Gluconate 10 Meq 2057 Potassium Chloride 40 Meq Potassium Phosphate 40 Meq Infuvite Adult 10 ml Magnesium Sulfate 8.12 Meq In Clinimix 5% -20% Solution 2,000 ml @ 85 mls /hr IV DAILY@1600 [facility] Rx#: [id number] Merrem 2 gm In Sodium Chloride 100 100 0.9% 100 ml @ 100 mls/hr IV Q8H [facility] Rx#:[id number] Output: Drainage 333 Left Abdomen TREVER Drain 5 Medial Abdomen TREVER Drain 3 midline abdominal incision 325 wound vac Void Amount 650 700 Other: Stool Consistency Loose # Bowel Movements 0 Exam: General: Awake, no acute Distress, obese Eyes/N/T: EOMI, Head/Neck: neck supple, CV: RRR, No murmurs, Pulm: Clear b/l, no wheezing/rhonchi/rales, Abd: Distended, hypoactiveBS x4, wound VAC in place Ext: no clubbing/cyanosis, b/l LE trace-1+ edema improved Neuro: Awake and alert,, no focal deficits, moves all extremities, Skin: warm/dry OBJ DATA Labs CBC & Chem 7: 03/05/22 05:05 03/05/22 05:05 Labs: Abnormal Lab Results 03/05/22 03/04/22 03/04/22 05:05 05:41 05:41 WBC 13.8 H RBC 3.56 L 3.74 L Hgb 10.1 L 10.7 L Hct 31.9 L 33.7 L Plt Count 458 H 449 H Immature Gran % (Auto) 1.5 H 1.9 H Lymph % (Auto) [place] % (Auto) 15.6 H 14.4 H [place] # (Auto) 1.59 H 1.99 H Immature Gran # 0.15 H 0.26 H Absolute Neutrophils 8.79 H Sodium Carbon Dioxide 21 L BUN 30 H Creatinine Glucose 145 H Magnesium 2.6 H Direct Bilirubin 0.3 H GGT 142 H Alkaline Phosphatase 158 H Lactate Dehydrogenase 228 H C-Reactive Protein Albumin 2.9 L Globulin 4.1 H Albumin/Globulin Ratio 0.7 L Triglycerides 229 H Urine Occult Blood Hyaline Casts Urine Mucus 03/03/22 03/03/22 03/03/22 14:49 14:49 09:15 WBC 14.1 H RBC 3.82 L Hgb 10.8 L Hct 33.6 L Plt Count 509 H Immature Gran % (Auto) 1.9 H Lymph % (Auto) 14.3 L [place] % (Auto) [place] # (Auto) 1.58 H Immature Gran # 0.27 H Absolute Neutrophils 10.02 H Sodium 132 L Carbon Dioxide BUN 33 H Creatinine 1.3 H Glucose 150 H Magnesium Direct Bilirubin GGT Alkaline Phosphatase Lactate Dehydrogenase C-Reactive Protein 4.50 H Albumin 2.9 L Globulin Albumin/Globulin Ratio Triglycerides Urine Occult Blood Trace-lysed A Hyaline Casts 3 H Urine Mucus Few A 03/03/22 03/03/22 05:40 05:40 WBC 14.3 H RBC 3.69 L Hgb 10.6 L Hct 32.4 L Plt Count 499 H Immature Gran % (Auto) 2.7 H Lymph % (Auto) [place] % (Auto) [place] # (Auto) 1.51 H Immature Gran # 0.39 H Absolute Neutrophils 9.82 H Sodium 131 L Carbon Dioxide BUN 27 H Creatinine 1.3 H Glucose 342 H Magnesium Direct Bilirubin 0.3 H GGT 179 H Alkaline Phosphatase 169 H Lactate Dehydrogenase 241 H C-Reactive Protein Albumin 2.9 L Globulin 4.0 H Albumin/Globulin Ratio 0.7 L Triglycerides 203 H Urine Occult Blood Hyaline Casts Urine Mucus Meds: Medications Albuterol/Ipratropium (Ipratropium/Albuterol 3 Ml Ampul.Neb) 3 ml NEB Q4HP PRN PRN Reason: Shortness Of Breath Last Admin: 03/03/22 08:02 Dose: 3 ml Alprazolam (Alprazolam 0.5 Mg Tablet) 1 mg PO Q6HP PRN PRN Reason: Anxiety Last Admin: 03/05/22 07:06 Dose: 1 mg Amlodipine Besylate (Amlodipine 5 Mg Tablet) 5 mg PO DAILY [facility] Last Admin: 03/04/22 08:10 Dose: 5 mg Carvedilol (Carvedilol 12.5 Mg Tablet) 25 mg PO BIDCC [facility] Last Admin: 03/05/22 07:05 Dose: 25 mg Dextrose (Dextrose 50% 50 Ml Syringe) 25 - 50 ml IV UD PRN PRN Reason: Hypoglycemia Diagnostic Test (Pha) (Accu-Chek 1 Each Strip) 1 each FS Q6 [facility] Last Admin: 03/05/22 05:19 Dose: 1 each Heparin Sodium (Porcine) (Heparin 5,000 Unit/Ml Vial) 5,000 unit SQ Q12 [facility] Last Admin: 03/04/22 21:17 Dose: 5,000 unit Heparin Sodium (Porcine) (Heparin Flush 10 Units/Ml 5 Ml Syringe) 2 ml IV Q12 [facility] Last Admin: 03/04/22 21:18 Dose: 2 ml Hydralazine HCl (Hydralazine 20 Mg/Ml Vial) 20 mg IV Q4HP PRN PRN Reason: Hypertension Last Admin: 02/27/22 21:08 Dose: 20 mg Hydromorphone HCl (Hydromorphone 1 Mg/Ml Syringe) 0 mg IV Q2HP PRN; Protocol PRN Reason: Per Pain Protocol Last Admin: 03/04/22 17:53 Dose: 1 mg Hydroxyzine HCl (Hydroxyzine 25 Mg Tablet) 25 mg PO TIDP PRN PRN Reason: Allergic Symptoms Acetaminophen (Ofirmev) 1,000 mg in 100 mls @ 200 mls/hr IV Q6H [facility]; Protocol Last Admin: 03/05/22 07:18 Dose: 200 mls/hr Meropenem 2 gm/ Sodium (Chloride) 100 mls @ 100 mls/hr IV Q8H [facility]; Protocol Last Admin: 03/05/22 05:10 Dose: 100 mls/hr Fat Emulsion Intravenous 250 (ml/ Premix) 250 mls @ 25 mls/hr IV MoWeFr@1600 [facility] Last Admin: 03/04/22 16:20 Dose: 25 mls/hr Calcium Gluconate 10 meq/Potassium Chloride 20 meq/Potassium Phosphate 40 meq/Multivitamins/Minerals 10 ml/Magnesium Sulfate 4.06 meq/Sodium Acetate 30 meq/ Amino Acids 2,066.5962 mls @ 85 mls/hr IV DAILY@1600 [facility] Last Admin: 03/04/22 16:20 Dose: 85 mls/hr Insulin Human Lispro (Insulin Lispro 1 Unit/0.01 Ml Unit) 0 unit SQ Q6 [facility]; Protocol Last Admin: 03/05/22 05:19 Dose: Not Given Labetalol HCl (Labetalol 5 Mg/Ml Ml) 10 - 20 mg IV Q2HP PRN PRN Reason: Hypertension Last Admin: 02/27/22 23:42 Dose: 20 mg Melatonin (Melatonin 3 Mg Tablet) 3 mg PO HSP PRN PRN Reason: Sleep Metoclopramide HCl (Metoclopramide 10 Mg/2 Ml Vial) 10 mg IV Q6 [facility] Last Admin: 03/05/22 05:10 Dose: 10 mg Nystatin (Nystatin Crm 1 Dose Tube) 1 dose TOPICAL TID [facility] Last Admin: 03/04/22 21:18 Dose: Not Given Octreotide Acetate (Octreotide Acetate 100 Mcg/Ml Vial) 100 mcg SQ TID [facility] Last Admin: 03/04/22 21:18 Dose: 100 mcg Promethazine HCl (Promethazine 25 Mg/Ml Vial) 12.5 mg IV Q4HP PRN; Protocol PRN Reason: Nausea/Vomiting Last Admin: 03/03/22 19:30 Dose: 12.5 mg Scopolamine (Scopolamine 1 Patch Patch) 1 patch TOPICAL Q72H [facility] Last Admin: 03/03/22 16:56 Dose: 1 patch Sodium Chloride (0.9 % Sodium Chloride 10 Ml Syringe) 10 ml IV Q12 [facility] Last Admin: 03/04/22 21:18 Dose: 10 ml Sodium Chloride (0.9 % Sodium Chloride 10 Ml Syringe) 10 ml IV UD PRN PRN Reason: FLUSH Last Admin: 02/26/22 05:18 Dose: 10 ml Tamsulosin HCl (Tamsulosin 0.4 Mg Capsule) 0.4 mg PO HS [facility] Last Admin: 03/04/22 21:17 Dose: 0.4 mg Trazodone HCl (Trazodone Hcl 50 Mg Tablet) 50 mg PO HSP PRN PRN Reason: Insomnia A/P Narrative A/P Narrative: Assessment and Plans: *Cholelithiasis and choledocholithiasis: s/p lap converted to open cholecystectomy (02/18) -per Surgeon *Microperforations/small bowel leak/hematoma: s/p Ex-lap (02/23) -Leukocytosis resolved *Post-Op Ileus: *Acute hypoxic respiratory failure, post operative: resolved, likely atelectasis and volume overload *PNA: resolved *Essential HTN: elevated but improving *VINCENT on CKD III: fluctuating with events, but now improving *Anemia: *Metabolic acidosis: improved *Hypokalemia: *Obesity: BMI 40 *UR: P: -abx per surgery -Monitor CBC and renal function -Monitor volume status while receiving TPN -Electrolyte replacement as needed -Incentive spirometry, prn Supplemental oxygen -cont Amlodipine, added coreg, monitor BP -flomax started -pt/ot -ppx: heparin / ppi DNR Time Spent With Patient Time: Total time spent is greater than 50% in coordination of care (as documented) at patient's floor/unit and/or counseling patient: Total time spent with greater than 50% in coordination of care (as documented) at patient's floor/unit and/or counseling patient:: 25 - 35 minutes QUALITY VTE Deep Vein Thrombosis/Pulmonary Embolism Present on Admission: No
[2022-03-05 07:44] LABS: ALT/SGPT 31 U/L (<40); AST/SGOT 27 U/L (<40); Albumin 2.8 gm/dL (3.2-5.2); Albumin/Globulin Ratio 0.7 (1.0-2.3); Alkaline Phosphatase 147 U/L (39-117); Bilirubin,Direct 0.2 mg/dL (<0.3); Bilirubin,Total 0.5 mg/dL (0.1-1.0); Blood Urea Nitrogen 28 mg/dL (8-23); Carbon Dioxide 25 mmol/L (22-30); Chloride 101 mmol/L (96-108); Globulin 4.1 gm/dL (2.2-3.7); Glomerular Filtration Rate 59; Glucose 136 mg/dL (70-105); Lactate Dehydrogenase 211 U/L (135-225); Phosphorous 2.9 mg/dL (2.5-4.5); Triglycerides 253 mg/dL (<150); Uric Acid 4.1 mg/dL (2.5-8.0)
[2022-03-05] MEDS: amLODIPine 5 MG TABLET PO SCH (08:42)
[2022-03-05] MEDS: HEPARIN 5,000 UNIT/ML VIAL SQ SCH ×2 (08:42→21:06)
[2022-03-05] MEDS: OCTREOTIDE ACETATE 100 MCG/ML VIAL SQ SCH ×3 (08:43→22:55)
--- NOTE | 2022-03-05 10:01 | General Surgery Progress Note ---
SUBJECTIVE Subjective Patient information: Note initiated : 03/05/22 at 9:59 am Service Date, if different from initiated Date: [] Patient: Jonas Noble 72 y/o M admitted on 02/18/22 for bowel obstruction- Cholelithiasis. Chief Complaint: [] Principal diagnosis: Small bowel microperforation; enterocutaneous fistula Interval history: Patient is clinically stable however he still has significant output through his fistula.Pt is still in the acute phase and will need continued close follow-up with IV antibiotics, TPN, bowel rest. Because of nausea and vomiting his fluid volume will have to be increased to prevent deterioration in renal status. He is afebrile. White blood count 10.2; hemoglobin 10.1, hematocrit 31.9, BUN 28, creatinine 1.2, oxygen saturation 97% on room air. TREVER output is minimal and about 10 cc. He continues to have soft bowel movements. He has not had any emesis since yesterday. Midline drainage is controlled by wound vac, > 1 L output last 24 hours. Constitutional Vitals: Vital Signs Temp Pulse Resp BP Pulse Ox O2 Del Method O2 Flow Rate 97.7 F 76 20 141/67 98 1 03/05/22 07:26 03/05/22 07:26 03/05/22 07:26 03/05/22 07:26 03/05/22 07:26 03/05/22 07:26 02/27/22 07:45 Period Temp Pulse Resp BP Sys/Maza Pulse Ox O2 Del Method O2 Flow Rate Last 24 Hr 97.6 F-98.8 F 69-86 20-28 127-144/61-98 96-98 Room Air-Room Air Intake and Output 03/04/22 03/05/22 03/05/22 19:59 03:59 11:59 Intake Total 2357 200 100 Output Total 650 1033 Balance 1707 -833 100 Weight 270 lb 3.2 oz 275 lb Intake & Output: Intake & Output 03/04/22 03/05/22 03/05/22 19:59 03:59 11:59 Intake Total 2357 200 100 Output Total 650 1033 Balance 1707 -833 100 Weight 270 lb 3.2 oz 275 lb Intake: IV 2357 200 100 Calcium Gluconate 10 Meq 2057 Potassium Chloride 40 Meq Potassium Phosphate 40 Meq Infuvite Adult 10 ml Magnesium Sulfate 8.12 Meq In Clinimix 5% -20% Solution 2,000 ml @ 85 mls /hr IV DAILY@1600 [facility] Rx#: [id number] Merrem 2 gm In Sodium Chloride 100 100 0.9% 100 ml @ 100 mls/hr IV Q8H [facility] Rx#:[id number] Output: Drainage 333 Left Abdomen TREVER Drain 5 Medial Abdomen TREVER Drain 3 midline abdominal incision 325 wound vac Void Amount 650 700 Other: Stool Consistency Loose # Bowel Movements 0 ENT ENT exam: Present mucous membranes moist, normal external ear exam and normal oropharynx Neck Neck exam: Present full ROM and normal inspection Respiratory Respiratory exam: Present normal respiratory exam and CTAB; Absent rales, rhonchi or wheezes Cardiovascular Cardiovascular exam: Present normal rate and rhythm, RRR, +S1 and +S2; Absent JVD GI/Abdominal GI/Abdominal exam: Present normal bowel sounds, distended and tenderness (Mild tenderness in upper third of incision with crepitus extending in the subcutaneous plane suggesting dissection of tissue with secondary infection) Additional comments: He is developing good granulations in the upper third of the incision and has a partially controlled fistula in the middle third. Extremities Exam Extremities exam: Present normal inspection and neurovascular intact; Absent pedal edema or tenderness Neurological Exam Neurological exam: Present oriented X3 and reflexes normal; Absent motor sensory deficit Psychiatric Psychiatric exam: Present normal affect and normal mood A/P Assessment and plan (1) Intestinal fistula: Plan: Patient is currently stable, fistula output is being controlled with wound VAC, sutures and has been received through TPN. Continue with antibiotics, continue with fistula output control. Status: Acute Time Spent With Patient Time: Total time spent is greater than 50% in coordination of care (as documented) at patient's floor/unit and/or counseling patient:
[2022-03-05] MEDS: 0.9 % SODIUM CHLORIDE 10 ML SYRINGE IV SCH ×2 (11:28→21:09)
[2022-03-05] MEDS: NYSTATIN CRM 1 DOSE TUBE TOPICAL SCH ×3 (11:29→21:09)
[2022-03-05] MEDS ORDERED: FAMOTIDINE/PF 20 MG/2 ML VIAL IV ONE (13:51)
[2022-03-05] MEDS: MVI IV SCH (16:40)
[2022-03-05] MEDS: POTASSIUM CHLORIDE IV SCH (16:40)
[2022-03-05] MEDS: POTASSIUM PHOSPHATE IV SCH (16:40)
[2022-03-05] MEDS: [UNRECOGNIZED DRUG - OTHER] IV SCH (16:40)
[2022-03-05] MEDS: CALCIUM GLUCONATE IV SCH (16:40)
[2022-03-05] MEDS: IPRATROPIUM/ALBUTEROL 3 ML AMPUL.NEB NEB PRN (19:58)
[2022-03-05] MEDS: TAMSULOSIN 0.4 MG CAPSULE PO SCH (21:06)
[2022-03-06] MEDS: METOCLOPRAMIDE 10 MG/2 ML VIAL IV SCH ×4 (00:27→17:24)
[2022-03-06] MEDS: INSULIN LISPRO 1 UNIT/0.01 ML UNIT SQ SCH ×4 (00:32→17:54)
[2022-03-06] MEDS: ACETAMINOPHEN 1,000 MG/100 ML BAG IV SCH ×4 (01:56→19:28)
[2022-03-06] MEDS: MEROPENEM 2 GM in 0.9 % SODIUM CHLORIDE 100 ML IV SCH ×3 (06:10→21:28)
[2022-03-06 07:07] LABS: Basophils # (Auto) 0.18 K/mcL (0.00-0.30); Basophils % (Auto) 1.9 % (0.0-2.0); Eosinophils # (Auto) 0.18 K/mcL (0.00-0.70); Eosinophils % (Auto) 1.9 % (0.0-7.0); Hematocrit 32.9 % (40.1-51.0); Hemoglobin 10.4 g/dL (13.7-17.5); Lymphocytes # (Auto) 2.77 K/mcL (1.50-4.80); Lymphocytes % (Auto) 29.2 % (15.5-49.0); Mean Cell Volume 90.1 fL (80.0-100.0); Mean Corpuscular HGB Conc 31.6 g/dL (31.0-36.0); Mean Platelet Volume 9.8 fL (8.8-12.5); Monocytes # (Auto) 1.66 K/mcL (0.10-0.90); Monocytes % (Auto) 17.5 % (1.0-12.0); Neutrophils % (Auto) 47.9 % (38.0-78.0); Platelet Count 445 K/mcL (140-440); RBC 3.65 M/mcL (4.63-6.08); WBC 9.5 K/mcL (4.5-11.0)
[2022-03-06 07:13] LABS: ALT/SGPT 32 U/L (<40); AST/SGOT 30 U/L (<40); Albumin 2.8 gm/dL (3.2-5.2); Albumin/Globulin Ratio 0.7 (1.0-2.3); Alkaline Phosphatase 149 U/L (39-117); Bilirubin,Direct 0.2 mg/dL (<0.3); Bilirubin,Total 0.5 mg/dL (0.1-1.0); Blood Urea Nitrogen 29 mg/dL (8-23); Carbon Dioxide 22 mmol/L (22-30); Chloride 102 mmol/L (96-108); Globulin 4.3 gm/dL (2.2-3.7); Glomerular Filtration Rate 59; Glucose 172 mg/dL (70-105); Lactate Dehydrogenase 219 U/L (135-225); Phosphorous 3.7 mg/dL (2.5-4.5); Triglycerides 291 mg/dL (<150); Uric Acid 4.1 mg/dL (2.5-8.0)
--- NOTE | 2022-03-06 07:53 | Internal Med Progress Note ---
SUBJECTIVE Subjective Patient information: Note initiated : 03/06/22 at 7:50 am Service Date, if different from initiated Date: [] Patient: Jonas Noble 72 y/o M admitted on 02/18/22 for bowel obstruction- Cholelithiasis. Chief Complaint: [] Principal diagnosis: Small bowel microperforation; enterocutaneous fistula Interval history: Patient is a 71 years old gentleman history of essential hypertensions, chronic kidney disease stage III, BPH, presenting with postprandial abdominal pain on February 15, 2022. CT of the abdomen at admission showing dilated common bile duct and intrahepatic ducts with a 6 mm distal common bile duct stone. He also has multiple stones in the gallbladder. Emergent ERCP was performed general surgeon Dr. Stephens performed laparoscopic converted to open cholecystectomy on Friday, February 18, 2022. Patient is tolerated the surgery relatively okay. This morning at shift change around 7 AM, patient was found by his nurse to be tachycardic and tachypneic with rate of breathing and heart rate in the 30s and 140s, respectively. Patient is also showing labored breathing. Rapid response was called and patient was transferred to PCU for higher level of care. Patient is currently is complaining of increased shortness of breath. Abdominal pain is being adequately controlled with IV Tylenol and Dilaudid. Emergent chest x- ray showing acute left-sided infiltrates consistent with pneumonia. Abdominal CT showing bowel gas pattern unremarkable. And no evidence of mechanical small bowel obstructions. CT angiogram chest and abdomen pending at the moment. 02/21: CTA chest: negative of PE, but shows bilateral lung bases infiltrates suggestive of pneumonia. Afebrile overnight. Patient is currently on 1.5-2L/min nasal cannula oxygen. Cultures no growth to date. WBC down trended 17.8-->13.8. Serum Cr worsen from 1.5-->2.4. Patient is complaining of 3 out of 10 abdominal pain. He is having much improved degree of shortness of breath. He denies any cough or wheezing. He denies any fever, chills, or diaphoresis. He denies any nausea or vomiting. NG tube still in place. The patient still currently on n.p.o. status. Patient has not passed any bowel movement yet. Continue Zosyn while monitoring culture results. Repeat chest x-ray today. Continue IV fluid, avoid nephrotoxic agents, and repeat CMP in the morning to trend kidney functions. Rest of the surgical management as per primary team. 02/22: Afebrile overnight. Patient is currently on room air. Blood culture no growth today. Repeat chest x-ray from yesterday showing nearly complete improvement of the infiltrates seen from previous exams. Patient's degree of shortness of breath has greatly improved. Denies any chest pain. Denies any coughing or respiratory wheezings. Denies any fever chills or diaphoresis. He is still made n.p.o. status as per general surgeon Dr. Stephens. 02/23 Patient found to have drainage from incision site this morning with tachycardia. Patient was emergently taken back to the OR found to have small bowel leak and abdominal wall cellulitis with microperforation of the small bowel x3 with localized peritonitis. Patient transferred back to PCU after procedure. Patient had ex lap with closure of Microbrush x3 evacuation of hematoma. Wound VAC placed. Has cough and some shortness of breath. 02/24 Patient feeling much better today. Starting to pass gas. Good urine output with Lasix yesterday. Liter nasal cannula and likely to come off on room air. TREVER drains in place. Renal function stable. 02/25 Patient passing gas no bowel movement yet. No other new complaints other than he said he had a severe nightmare last night and poor sleep but otherwise no new complaints. Patient is on room air. Mild hypokalemia. Renal function looks good. 02/26 No overnight event or new complaints. However he is quite sleepy this morning and per nursing notes he did not sleep well last night. Patient had a bump in his leukocytosis today. Potassium is low and will be replaced. No function looks good today. Other actions per surgery. 02/27 Patient retaining urine after Rg came out. Patient refusing straight cath. We will give Flomax and continue as needed bladder scans. Patient drowsy this morning does complain of little shortness of breath. Leukocytosis worsened today. 02/28 Patient does have some drainage into the abdominal wound, discussed with general surgery. Dr. Stephens feels that this communication is extraperitoneal and not intra-abdominal and not an indication for another exploratory surgery. The patient is somewhat volume overloaded, started Lasix 40 mg IV twice daily. Place Rg catheter for diuresis as the patient is retaining urine. 03/01 Patient appears much more comfortable today, diuresed well after receiving IV Lasix. We will continue with Lasix 20 mg IV twice daily for now as the patient is on a clear liquid diet and the plan is to continue TPN. 03/02 No significant events overnight. Discontinued Rg catheter. Added melatonin at bedtime and hydroxyzine as needed for anxiety. 03/03 Patient feels tired today, white blood cell count increased from 12.2-14.3, creatinine increased mildly. Ordered blood cultures x2, urinalysis, chest x- ray. UA did not show any evidence of UTI, chest x-ray did not show any evidence of a pneumonia. Discontinued Lasix. Continues on meropenem per surgery. Receiving TPN and on clear liquid diet. Increased drainage from wound VAC, patient denies increasing abdominal discomfort. Will monitor renal function closely, if creatinine trends up start IV fluid. 03/04 Patient received IV fluid yesterday evening, renal function improved this morning. The patient feels a little better after receiving IV fluid. He continues to receive IV fluid with TPN and is on a clear liquid diet. Dr. Stephens [facility] for transfer to higher level of care however patient was declined because the surgical staff said the patient surgical management would not change at those facilities. Increased Xanax frequency for anxiety. 03/05 No change overnight. Patient feels about the same. No bowel movements or flatus. Leukocytosis resolved today. 03/06 Small BM this morning. No new complaints. Does get anxious at times. Nurses stated the Xanax for Anxiety seem to knock him out most of the day yesterday. Decrease the dose. Review of Systems: denies headache/fever/chills/nausea/vomiting/chest pain/diarrhea. Otherwise see above. Constitutional Vitals: Vital Signs Temp Pulse Resp BP Pulse Ox O2 Del Method O2 Flow Rate 97.5 F 67 20 125/68 97 1 03/06/22 07:33 03/06/22 07:33 03/06/22 07:33 03/06/22 07:33 03/06/22 07:33 03/06/22 07:33 02/27/22 07:45 Period Temp Pulse Resp BP Sys/Maza Pulse Ox O2 Del Method O2 Flow Rate Last 24 Hr 97.5 F-98.6 F 64-77 18- 113-133/60-70 93-100 Room Air-Room Air Intake and Output 03/05/22 03/06/22 03/06/22 19:59 03:59 11:59 Intake Total 2516.5962 300 200 Output Total 650 429 Balance 1866.5962 -129 200 Weight 124.602 kg Intake & Output: Intake & Output 03/05/22 03/06/22 03/06/22 19:59 03:59 11:59 Intake Total 2516.5962 300 200 Output Total 650 429 Balance 1866.5962 -129 200 Weight 124.602 kg Intake: IV 2516.5962 300 200 Calcium Gluconate 10 Meq 6.5962 Potassium Chloride 20 Meq Potassium Phosphate 40 Meq Infuvite Adult 10 ml Magnesium Sulfate 4.06 Meq Sodium Acetate 30 Meq In Clinimix 5%-20% Solution 2,000 ml @ 85 mls/hr IV DAILY@1600 [facility] Rx#:[id number] Intralipid 20% 250 ml In Premix 250 1 Bag @ 25 mls/hr IV MoWeFr@ 1600 [facility] Rx#:[id number] Merrem 2 gm In Sodium Chloride 100 100 100 0.9% 100 ml @ 100 mls/hr IV Q8H [facility] Rx#:[id number] Output: Drainage 50 28 Left Abdomen TREVER Drain 5 3 Medial Abdomen TREVER Drain 5 0 midline abdominal incision 40 25 wound vac Void Amount 600 400 # of times incontinent of urine 1 Other: Urine Appearance Clear Clear Urine Color Yellow Bright Yellow # Bowel Movements 0 Exam: General: Awake, no acute Distress, obese Eyes/N/T: EOMI, Head/Neck: neck supple, CV: RRR, No murmurs, Pulm: Clear b/l, no wheezing/rhonchi/rales, Abd: Distended, hypoactive BS x4, wound VAC in place Ext: no clubbing/cyanosis, b/l LE trace edema Neuro: Awake and alert,, no focal deficits, moves all extremities, Skin: warm/dry OBJ DATA Labs CBC & Chem 7: 03/06/22 05:23 03/06/22 05:23 Labs: Abnormal Lab Results 03/06/22 03/06/22 03/05/22 05:23 05:23 05:05 WBC RBC 3.65 L Hgb 10.4 L Hct 32.9 L Plt Count 445 H Immature Gran % (Auto) 1.6 H Lymph % (Auto) Motley % (Auto) 17.5 H Motley # (Auto) 1.66 H Immature Gran # 0.15 H Absolute Neutrophils Sodium Carbon Dioxide Anion Gap 7.0 L BUN 29 H 28 H Creatinine Glucose 172 H 136 H Magnesium Direct Bilirubin GGT 109 H 117 H Alkaline Phosphatase 149 H 147 H Lactate Dehydrogenase C-Reactive Protein Albumin 2.8 L 2.8 L Globulin 4.3 H 4.1 H Albumin/Globulin Ratio 0.7 L 0.7 L Triglycerides 291 H 253 H Urine Occult Blood Hyaline Casts Urine Mucus 03/05/22 03/04/22 03/04/22 05:05 05:41 05:41 WBC 13.8 H RBC 3.56 L 3.74 L Hgb 10.1 L 10.7 L Hct 31.9 L 33.7 L Plt Count 458 H 449 H Immature Gran % (Auto) 1.5 H 1.9 H Lymph % (Auto) Motley % (Auto) 15.6 H 14.4 H Motley # (Auto) 1.59 H 1.99 H Immature Gran # 0.15 H 0.26 H Absolute Neutrophils 8.79 H Sodium Carbon Dioxide 21 L Anion Gap BUN 30 H Creatinine Glucose 145 H Magnesium 2.6 H Direct Bilirubin 0.3 H GGT 142 H Alkaline Phosphatase 158 H Lactate Dehydrogenase 228 H C-Reactive Protein Albumin 2.9 L Globulin 4.1 H Albumin/Globulin Ratio 0.7 L Triglycerides 229 H Urine Occult Blood Hyaline Casts Urine Mucus 03/03/22 03/03/22 03/03/22 14:49 14:49 09:15 WBC 14.1 H RBC 3.82 L Hgb 10.8 L Hct 33.6 L Plt Count 509 H Immature Gran % (Auto) 1.9 H Lymph % (Auto) 14.3 L Motley % (Auto) Motley # (Auto) 1.58 H Immature Gran # 0.27 H Absolute Neutrophils 10.02 H Sodium 132 L Carbon Dioxide Anion Gap BUN 33 H Creatinine 1.3 H Glucose 150 H Magnesium Direct Bilirubin GGT Alkaline Phosphatase Lactate Dehydrogenase C-Reactive Protein 4.50 H Albumin 2.9 L Globulin Albumin/Globulin Ratio Triglycerides Urine Occult Blood Trace-lysed A Hyaline Casts 3 H Urine Mucus Few A Meds: Medications Albuterol/Ipratropium (Ipratropium/Albuterol 3 Ml Ampul.Neb) 3 ml NEB Q4HP PRN PRN Reason: Shortness Of Breath Last Admin: 03/05/22 19:58 Dose: 3 ml Alprazolam (Alprazolam 0.5 Mg Tablet) 1 mg PO Q6HP PRN PRN Reason: Anxiety Last Admin: 03/05/22 21:06 Dose: 1 mg Amlodipine Besylate (Amlodipine 5 Mg Tablet) 5 mg PO DAILY [facility]OD[facility]IGUE Last Admin: 03/05/22 08:42 Dose: 5 mg Carvedilol (Carvedilol 12.5 Mg Tablet) 25 mg PO BIDCC [facility] Last Admin: 03/05/22 17:34 Dose: 25 mg Dextrose (Dextrose 50% 50 Ml Syringe) 25 - 50 ml IV UD PRN PRN Reason: Hypoglycemia Diagnostic Test (Pha) (Accu-Chek 1 Each Strip) 1 each FS Q6 [facility] Last Admin: 03/06/22 06:03 Dose: 1 each Heparin Sodium (Porcine) (Heparin 5,000 Unit/Ml Vial) 5,000 unit SQ Q12 [facility] Last Admin: 03/05/22 21:06 Dose: 5,000 unit Heparin Sodium (Porcine) (Heparin Flush 10 Units/Ml 5 Ml Syringe) 2 ml IV Q12 [facility] Last Admin: 03/05/22 21:08 Dose: 2 ml Hydralazine HCl (Hydralazine 20 Mg/Ml Vial) 20 mg IV Q4HP PRN PRN Reason: Hypertension Last Admin: 02/27/22 21:08 Dose: 20 mg Hydromorphone HCl (Hydromorphone 1 Mg/Ml Syringe) 0 mg IV Q2HP PRN; Protocol PRN Reason: Per Pain Protocol Last Admin: 03/04/22 17:53 Dose: 1 mg Hydroxyzine HCl (Hydroxyzine 25 Mg Tablet) 25 mg PO TIDP PRN PRN Reason: Allergic Symptoms Acetaminophen (Ofirmev) 1,000 mg in 100 mls @ 200 mls/hr IV Q6H [facility]; Protocol Last Infusion: 03/06/22 07:25 Dose: Infused Meropenem 2 gm/ Sodium (Chloride) 100 mls @ 100 mls/hr IV Q8H [facility]; Protocol Last Infusion: 03/06/22 07:25 Dose: Infused Fat Emulsion Intravenous 250 (ml/ Premix) 250 mls @ 25 mls/hr IV MoWeFr@1600 [facility] Last Infusion: 03/05/22 13:53 Dose: Infused Calcium Gluconate 10 meq/Potassium Chloride 20 meq/Potassium Phosphate 40 meq/Multivitamins/Minerals 10 ml/Magnesium Sulfate 4.06 meq/Sodium Acetate 30 meq/ Amino Acids 2,066.5962 mls @ 85 mls/hr IV DAILY@1600 [facility] Last Admin: 03/05/22 16:40 Dose: 85 mls/hr Insulin Human Lispro (Insulin Lispro 1 Unit/0.01 Ml Unit) 0 unit SQ Q6 [facility]; Protocol Last Admin: 03/06/22 06:03 Dose: 2 units Labetalol HCl (Labetalol 5 Mg/Ml Ml) 10 - 20 mg IV Q2HP PRN PRN Reason: Hypertension Last Admin: 02/27/22 23:42 Dose: 20 mg Melatonin (Melatonin 3 Mg Tablet) 3 mg PO HSP PRN PRN Reason: Sleep Metoclopramide HCl (Metoclopramide 10 Mg/2 Ml Vial) 10 mg IV Q6 [facility] Last Admin: 03/06/22 06:10 Dose: 10 mg Nystatin (Nystatin Crm 1 Dose Tube) 1 dose TOPICAL TID [facility] Last Admin: 03/05/22 21:09 Dose: Not Given Octreotide Acetate (Octreotide Acetate 100 Mcg/Ml Vial) 100 mcg SQ TID [facility] Last Admin: 03/05/22 22:55 Dose: 100 mcg Promethazine HCl (Promethazine 25 Mg/Ml Vial) 12.5 mg IV Q4HP PRN; Protocol PRN Reason: Nausea/Vomiting Last Admin: 03/03/22 19:30 Dose: 12.5 mg Scopolamine (Scopolamine 1 Patch Patch) 1 patch TOPICAL Q72H [facility] Last Admin: 03/03/22 16:56 Dose: 1 patch Sodium Chloride (0.9 % Sodium Chloride 10 Ml Syringe) 10 ml IV Q12 [facility] Last Admin: 03/05/22 21:09 Dose: 10 ml Sodium Chloride (0.9 % Sodium Chloride 10 Ml Syringe) 10 ml IV UD PRN PRN Reason: FLUSH Last Admin: 02/26/22 05:18 Dose: 10 ml Tamsulosin HCl (Tamsulosin 0.4 Mg Capsule) 0.4 mg PO HS [facility] Last Admin: 03/05/22 21:06 Dose: 0.4 mg Trazodone HCl (Trazodone Hcl 50 Mg Tablet) 50 mg PO HSP PRN PRN Reason: Insomnia A/P Narrative A/P Narrative: Assessment and Plans: *Cholelithiasis and choledocholithiasis: s/p lap converted to open cholecystectomy (02/18) -per Surgeon *Microperforations/small bowel leak/hematoma/fistula: s/p Ex-lap (02/23) -Leukocytosis resolved -garcía in wound cx *Post-Op Ileus: *Acute hypoxic respiratory failure, post operative: resolved, likely atelectasis and volume overload *PNA: resolved *Essential HTN: elevated but improving *VINCENT on CKD III: fluctuating with events, but now improving *Anemia: *Metabolic acidosis: improved *Hypokalemia: improved *Obesity: BMI 40 *UR: P: -abx per surgery, wound vac -fluconazole -monitor renal fxn -Monitor volume status while receiving TPN -Electrolyte replacement as needed -Incentive spirometry, prn Supplemental oxygen -cont Amlodipine, coreg -flomax started -pt/ot -ppx: heparin / ppi DNR Time Spent With Patient Time: Total time spent is greater than 50% in coordination of care (as documented) at patient's floor/unit and/or counseling patient: Total time spent with greater than 50% in coordination of care (as documented) at patient's floor/unit and/or counseling patient:: 25 - 35 minutes QUALITY VTE Deep Vein Thrombosis/Pulmonary Embolism Present on Admission: No
[2022-03-06] MEDS: HYDROmorphone 1 MG/ML SYRINGE IV PRN (08:44)
[2022-03-06] MEDS: OCTREOTIDE ACETATE 100 MCG/ML VIAL SQ SCH ×3 (08:45→21:29)
[2022-03-06] MEDS: amLODIPine 5 MG TABLET PO SCH (08:45)
[2022-03-06] MEDS: CARVEDILOL 12.5 MG TABLET PO SCH ×2 (08:45→16:42)
[2022-03-06] MEDS: HEPARIN 5,000 UNIT/ML VIAL SQ SCH ×2 (08:45→21:28)
[2022-03-06] MEDS: 0.9 % SODIUM CHLORIDE 10 ML SYRINGE IV SCH ×2 (08:47→21:28)
--- NOTE | 2022-03-06 10:05 | General Surgery Progress Note ---
SUBJECTIVE Subjective Patient information: Note initiated : 03/06/22 at 10:02 am Service Date, if different from initiated Date: [] Patient: Jonas Noble 72 y/o M admitted on 02/18/22 for bowel obstruction- Cholelithiasis. Chief Complaint: [] Principal diagnosis: Small bowel microperforation; enterocutaneous fistula Interval history: Patient is clinically stable, decreased midline and TREVER output over the last 24 hours, does have increased and abdominal pain. He is afebrile. White blood count and labs stable. TREVER output is minimal and about 10 cc. He continues to have soft bowel movements. He has not had any emesis since yesterday. Midline drainage is controlled by wound vac, much decreased output last 24 hours. Constitutional Vitals: Vital Signs Temp Pulse Resp BP Pulse Ox O2 Del Method O2 Flow Rate 97.5 F 67 20 125/68 97 1 03/06/22 07:33 03/06/22 07:33 03/06/22 07:33 03/06/22 07:33 03/06/22 07:33 03/06/22 07:33 02/27/22 07:45 Period Temp Pulse Resp BP Sys/Maza Pulse Ox O2 Del Method O2 Flow Rate Last 24 Hr 97.5 F-98.6 F 64-77 - 113-133/60-70 93-99 Room Air-Room Air Intake and Output 03/05/22 03/06/22 03/06/22 19:59 03:59 11:59 Intake Total 2516.5962 300 200 Output Total 650 429 401 Balance 5962 -129 -201 Weight 274 lb 11.2 oz Intake & Output: Intake & Output 03/05/22 03/06/22 03/06/22 19:59 03:59 11:59 Intake Total 2516.5962 300 200 Output Total 650 429 401 Balance 186.5962 -129 -201 Weight 274 lb 11.2 oz Intake: IV 2516.5962 300 200 Calcium Gluconate 10 Meq 6.5962 Potassium Chloride 20 Meq Potassium Phosphate 40 Meq Infuvite Adult 10 ml Magnesium Sulfate 4.06 Meq Sodium Acetate 30 Meq In Clinimix 5%-20% Solution 2,000 ml @ 85 mls/hr IV DAILY@1600 [facility] Rx#:[id number] Intralipid 20% 250 ml In Premix 250 1 Bag @ 25 mls/hr IV MoWeFr@ 1600 [facility] Rx#:[id number] Merrem 2 gm In Sodium Chloride 100 100 100 0.9% 100 ml @ 100 mls/hr IV Q8H [facility] Rx#:[id number] Output: Drainage 50 28 Left Abdomen TREVER Drain 5 3 Medial Abdomen TREVER Drain 5 0 midline abdominal incision 40 25 wound vac Void Amount 600 400 400 # of times incontinent of urine 1 1 Other: Urine Appearance Clear Clear Clear Urine Color Yellow Bright Yellow Yellow Stool Size Small Stool Color Yellow Stool Consistency Loose # Bowel Movements 0 1 Exam: General: Awake, no acute Distress, obese Eyes/N/T: EOMI, Head/Neck: neck supple, CV: RRR, No murmurs, Pulm: Clear b/l, no wheezing/rhonchi/rales, Abd: Distended, hypoactive BS x4, wound VAC in place Ext: no clubbing/cyanosis, b/l LE trace edema Neuro: Awake and alert,, no focal deficits, moves all extremities, Skin: warm/dry A/P Assessment and plan (1) Intestinal fistula: Plan: Enterocutaneous fistula, controlled improved white count, afebrile. Continue with TPN. Will give oral oxy to improve pain control. Status: Acute Time Spent With Patient Time: Total time spent is greater than 50% in coordination of care (as documented) at patient's floor/unit and/or counseling patient:
[2022-03-06] MEDS: NYSTATIN CRM 1 DOSE TUBE TOPICAL SCH ×3 (10:06→21:30)
[2022-03-06] MEDS: oxyCODONE HCL 5 MG TABLET PO PRN ×2 (10:56→16:42)
[2022-03-06] MEDS: SUCRETS LOZENGE PO PRN ×2 (11:06→20:04)
[2022-03-06] MEDS ORDERED: FLUCONAZOLE 800 MG/400 ML BAG IV SCH (14:30)
[2022-03-06] MEDS: FLUCONAZOLE 400 MG/200 ML BAG IV SCH ×2 (14:41→16:43)
[2022-03-06] MEDS ORDERED: CALCIUM GLUCONATE IV SCH (15:00)
[2022-03-06] MEDS ORDERED: [UNRECOGNIZED DRUG - OTHER] IV SCH (15:00)
[2022-03-06] MEDS ORDERED: MVI IV SCH (15:00)
[2022-03-06] MEDS ORDERED: POTASSIUM PHOSPHATE IV SCH (15:00)
[2022-03-06] MEDS ORDERED: POTASSIUM CHLORIDE IV SCH (15:00)
[2022-03-06] MEDS: SCOPOLAMINE 1 PATCH PATCH TOPICAL SCH (16:53)
[2022-03-06] MEDS: TAMSULOSIN 0.4 MG CAPSULE PO SCH (21:29)
[2022-03-07] MEDS: INSULIN LISPRO 1 UNIT/0.01 ML UNIT SQ SCH ×4 (00:02→17:38)
[2022-03-07] MEDS: ACETAMINOPHEN 1,000 MG/100 ML BAG IV SCH ×4 (00:07→21:24)
[2022-03-07] MEDS: METOCLOPRAMIDE 10 MG/2 ML VIAL IV SCH ×4 (00:07→17:26)
[2022-03-07] MEDS: SUCRETS LOZENGE PO PRN ×3 (03:44→11:32)
[2022-03-07] MEDS: MEROPENEM 2 GM in 0.9 % SODIUM CHLORIDE 100 ML IV SCH ×3 (05:30→21:53)
--- NOTE | 2022-03-07 07:26 | Internal Med Progress Note ---
SUBJECTIVE Subjective Patient information: Note initiated : 03/07/22 at 7:25 am Service Date, if different from initiated Date: [] Patient: Jonas Noble 72 y/o M admitted on 02/18/22 for bowel obstruction- Cholelithiasis. Chief Complaint: [] Principal diagnosis: Small bowel microperforation; enterocutaneous fistula Interval history: Patient is a 71 years old gentleman history of essential hypertensions, chronic kidney disease stage III, BPH, presenting with postprandial abdominal pain on February 15, 2022. CT of the abdomen at admission showing dilated common bile duct and intrahepatic ducts with a 6 mm distal common bile duct stone. He also has multiple stones in the gallbladder. Emergent ERCP was performed general surgeon Dr. Stephens performed laparoscopic converted to open cholecystectomy on Friday, February 18, 2022. Patient is tolerated the surgery relatively okay. This morning at shift change around 7 AM, patient was found by his nurse to be tachycardic and tachypneic with rate of breathing and heart rate in the 30s and 140s, respectively. Patient is also showing labored breathing. Rapid response was called and patient was transferred to PCU for higher level of care. Patient is currently is complaining of increased shortness of breath. Abdominal pain is being adequately controlled with IV Tylenol and Dilaudid. Emergent chest x- ray showing acute left-sided infiltrates consistent with pneumonia. Abdominal CT showing bowel gas pattern unremarkable. And no evidence of mechanical small bowel obstructions. CT angiogram chest and abdomen pending at the moment. 02/21: CTA chest: negative of PE, but shows bilateral lung bases infiltrates suggestive of pneumonia. Afebrile overnight. Patient is currently on 1.5-2L/min nasal cannula oxygen. Cultures no growth to date. WBC down trended 17.8-->13.8. Serum Cr worsen from 1.5-->2.4. Patient is complaining of 3 out of 10 abdominal pain. He is having much improved degree of shortness of breath. He denies any cough or wheezing. He denies any fever, chills, or diaphoresis. He denies any nausea or vomiting. NG tube still in place. The patient still currently on n.p.o. status. Patient has not passed any bowel movement yet. Continue Zosyn while monitoring culture results. Repeat chest x-ray today. Continue IV fluid, avoid nephrotoxic agents, and repeat CMP in the morning to trend kidney functions. Rest of the surgical management as per primary team. 02/22: Afebrile overnight. Patient is currently on room air. Blood culture no growth today. Repeat chest x-ray from yesterday showing nearly complete improvement of the infiltrates seen from previous exams. Patient's degree of shortness of breath has greatly improved. Denies any chest pain. Denies any coughing or respiratory wheezings. Denies any fever chills or diaphoresis. He is still made n.p.o. status as per general surgeon Dr. Stephens. 02/23 Patient found to have drainage from incision site this morning with tachycardia. Patient was emergently taken back to the OR found to have small bowel leak and abdominal wall cellulitis with microperforation of the small bowel x3 with localized peritonitis. Patient transferred back to PCU after procedure. Patient had ex lap with closure of Microbrush x3 evacuation of hematoma. Wound VAC placed. Has cough and some shortness of breath. 02/24 Patient feeling much better today. Starting to pass gas. Good urine output with Lasix yesterday. Liter nasal cannula and likely to come off on room air. TREVER drains in place. Renal function stable. 02/25 Patient passing gas no bowel movement yet. No other new complaints other than he said he had a severe nightmare last night and poor sleep but otherwise no new complaints. Patient is on room air. Mild hypokalemia. Renal function looks good. 02/26 No overnight event or new complaints. However he is quite sleepy this morning and per nursing notes he did not sleep well last night. Patient had a bump in his leukocytosis today. Potassium is low and will be replaced. No function looks good today. Other actions per surgery. 02/27 Patient retaining urine after Rg came out. Patient refusing straight cath. We will give Flomax and continue as needed bladder scans. Patient drowsy this morning does complain of little shortness of breath. Leukocytosis worsened today. 02/28 Patient does have some drainage into the abdominal wound, discussed with general surgery. Dr. Stephens feels that this communication is extraperitoneal and not intra-abdominal and not an indication for another exploratory surgery. The patient is somewhat volume overloaded, started Lasix 40 mg IV twice daily. Place Rg catheter for diuresis as the patient is retaining urine. 03/01 Patient appears much more comfortable today, diuresed well after receiving IV Lasix. We will continue with Lasix 20 mg IV twice daily for now as the patient is on a clear liquid diet and the plan is to continue TPN. 03/02 No significant events overnight. Discontinued Rg catheter. Added melatonin at bedtime and hydroxyzine as needed for anxiety. 03/03 Patient feels tired today, white blood cell count increased from 12.2-14.3, creatinine increased mildly. Ordered blood cultures x2, urinalysis, chest x- ray. UA did not show any evidence of UTI, chest x-ray did not show any evidence of a pneumonia. Discontinued Lasix. Continues on meropenem per surgery. Receiving TPN and on clear liquid diet. Increased drainage from wound VAC, patient denies increasing abdominal discomfort. Will monitor renal function closely, if creatinine trends up start IV fluid. 03/04 Patient received IV fluid yesterday evening, renal function improved this morning. The patient feels a little better after receiving IV fluid. He continues to receive IV fluid with TPN and is on a clear liquid diet. Dr. Stephens discussed the patient with tertiary [facility] yesterday for transfer to higher level of care however patient was declined because the surgical staff said the patient surgical management would not change at those facilities. Increased Xanax frequency for anxiety. 03/05 No change overnight. Patient feels about the same. No bowel movements or flatus. Leukocytosis resolved today. 03/06 Small BM this morning. No new complaints. Does get anxious at times. Nurses stated the Xanax for Anxiety seem to knock him out most of the day yesterday. Decrease the dose. 03/07 Patient feeling like he waxes and wanes. Feels bit better than feels worse and better than worse. But on the commode this morning felt like he was going have a bowel movement but did not have any. He cannot quite tell if he is passing any gas. Review of Systems: denies headache/fever/chills/nausea/vomiting/chest pain/diarrhea. Otherwise see above. Constitutional Vitals: Vital Signs Temp Pulse Resp BP Pulse Ox O2 Del Method O2 Flow Rate 99.0 F 83 28 H 127/69 97 1 03/07/22 06:51 03/07/22 06:51 03/07/22 06:51 03/07/22 06:51 03/07/22 06:51 03/07/22 06:51 02/27/22 07:45 Period Temp Pulse Resp BP Sys/Maza Pulse Ox O2 Del Method O2 Flow Rate Last 24 Hr 97.5 F-99.1 F 66-83 17-28 124-129/56-70 97-99 Room Air-Room Air Intake and Output 03/06/22 03/07/22 03/07/22 19:59 03:59 11:59 Intake Total 2572.1924 200 300 Output Total 656 1590 Balance 191.1924 -1390 300 Weight 124.602 kg 125.963 kg Intake & Output: Intake & Output 03/06/22 03/07/22 03/07/22 19:59 03:59 11:59 Intake Total 2572.1924 200 300 Output Total 656 1590 Balance 191.1924 -1390 300 Weight 124.602 kg 125.963 kg Intake: IV 2572.1924 200 300 Calcium Gluconate 10 Meq 5.5962 Potassium Chloride 40 Meq Potassium Phosphate 40 Meq Infuvite Adult 10 ml Magnesium Sulfate 8.12 Meq In Clinimix 5% -20% Solution 2,000 ml @ 85 mls /hr IV DAILY@1600 R[facility]IG[facility] Rx#: [id number] Calcium Gluconate 10 Meq 2066.5962 Potassium Chloride 20 Meq Potassium Phosphate 40 Meq Infuvite Adult 10 ml Magnesium Sulfate 4.06 Meq Sodium Acetate 30 Meq In Clinimix 5%-20% Solution 2,000 ml @ 85 mls/hr IV DAILY@1600 ROD[facility]IGUE Rx#:[id number] DIFLUCAN 400 mg In 200 ml @ 100 200 200 mls/hr IV 1430,1630 R[facility]IGUE Rx#: [id number] Merrem 2 gm In Sodium Chloride 100 100 100 0.9% 100 ml @ 100 mls/hr IV Q8H [facility] Rx#:[id number] Output: Drainage 156 140 Left Abdomen TREVER Drain 3 10 Medial Abdomen TREVER Drain 3 5 midline abdominal incision 150 125 wound vac Void Amount 500 1450 Other: Urine Appearance Clear Clear Urine Color Yellow Yellow Exam: General: Awake, no acute Distress, obese Eyes/N/T: EOMI, Head/Neck: neck supple, CV: RRR, No murmurs, Pulm: Clear b/l, no wheezing/rhonchi/rales, Abd: Distended, hypoactive BS x4, wound VAC in place Ext: no clubbing/cyanosis, b/l LE trace edema Neuro: Awake and alert,, no focal deficits, moves all extremities, Skin: warm/dry OBJ DATA Labs CBC & Chem 7: 03/06/22 05:23 03/07/22 06:00 Labs: Abnormal Lab Results 03/06/22 03/06/22 03/05/22 05:23 05:23 05:05 RBC 3.65 L Hgb 10.4 L Hct 32.9 L Plt Count 445 H Immature Gran % (Auto) 1.6 H Bowman % (Auto) 17.5 H Bowman # (Auto) 1.66 H Immature Gran # 0.15 H Carbon Dioxide Anion Gap 7.0 L BUN 29 H 28 H Glucose 172 H 136 H Magnesium Direct Bilirubin GGT 109 H 117 H Alkaline Phosphatase 149 H 147 H Lactate Dehydrogenase Albumin 2.8 L 2.8 L Globulin 4.3 H 4.1 H Albumin/Globulin Ratio 0.7 L 0.7 L Triglycerides 291 H 253 H 03/05/22 03/04/22 05:05 05:41 RBC 3.56 L Hgb 10.1 L Hct 31.9 L Plt Count 458 H Immature Gran % (Auto) 1.5 H Bowman % (Auto) 15.6 H Bowman # (Auto) 1.59 H Immature Gran # 0.15 H Carbon Dioxide 21 L Anion Gap BUN 30 H Glucose 145 H Magnesium 2.6 H Direct Bilirubin 0.3 H GGT 142 H Alkaline Phosphatase 158 H Lactate Dehydrogenase 228 H Albumin 2.9 L Globulin 4.1 H Albumin/Globulin Ratio 0.7 L Triglycerides 229 H Meds: Medications Albuterol/Ipratropium (Ipratropium/Albuterol 3 Ml Ampul.Neb) 3 ml NEB Q4HP PRN PRN Reason: Shortness Of Breath Last Admin: 03/05/22 19:58 Dose: 3 ml Alprazolam (Alprazolam 0.5 Mg Tablet) 0.5 mg PO TIDP PRN PRN Reason: Anxiety Amlodipine Besylate (Amlodipine 5 Mg Tablet) 5 mg PO DAILY [facility] Last Admin: 03/06/22 08:45 Dose: 5 mg Carvedilol (Carvedilol 12.5 Mg Tablet) 25 mg PO BIDCC [facility] Last Admin: 03/06/22 16:42 Dose: 25 mg Dextrose (Dextrose 50% 50 Ml Syringe) 25 - 50 ml IV UD PRN PRN Reason: Hypoglycemia Diagnostic Test (Pha) (Accu-Chek 1 Each Strip) 1 each FS Q6 [facility] Last Admin: 03/07/22 05:24 Dose: 1 each Heparin Sodium (Porcine) (Heparin 5,000 Unit/Ml Vial) 5,000 unit SQ Q12 [facility] Last Admin: 03/06/22 21:28 Dose: 5,000 unit Heparin Sodium (Porcine) (Heparin Flush 10 Units/Ml 5 Ml Syringe) 2 ml IV Q12 [facility] Last Admin: 03/06/22 21:29 Dose: 2 ml Hydralazine HCl (Hydralazine 20 Mg/Ml Vial) 20 mg IV Q4HP PRN PRN Reason: Hypertension Last Admin: 02/27/22 21:08 Dose: 20 mg Hydromorphone HCl (Hydromorphone 1 Mg/Ml Syringe) 0 mg IV Q2HP PRN; Protocol PRN Reason: Per Pain Protocol Last Admin: 03/06/22 08:44 Dose: 1 mg Hydroxyzine HCl (Hydroxyzine 25 Mg Tablet) 25 mg PO TIDP PRN PRN Reason: Allergic Symptoms Acetaminophen (Ofirmev) 1,000 mg in 100 mls @ 200 mls/hr IV Q6H [facility]; Protocol Last Admin: 03/07/22 06:49 Dose: 200 mls/hr Meropenem 2 gm/ Sodium (Chloride) 100 mls @ 100 mls/hr IV Q8H [facility]; Protocol Last Infusion: 03/07/22 07:15 Dose: Infused Fat Emulsion Intravenous 250 (ml/ Premix) 250 mls @ 25 mls/hr IV MoWeFr@1600 R[facility]RIGUE Last Infusion: 03/05/22 13:53 Dose: Infused Fluconazole (Diflucan) 400 mg in 200 mls @ 100 mls/hr IV Q24H [facility] Calcium Gluconate 10 meq/Potassium Chloride 20 meq/Potassium Phosphate 40 meq/Multivitamins/Minerals 10 ml/Magnesium Sulfate 4.06 meq/Sodium Acetate 30 meq/ Amino Acids 2,066.5962 mls @ 85 mls/hr IV DAILY@1500 [facility] Last Admin: 03/06/22 15:08 Dose: 85 mls/hr Insulin Human Lispro (Insulin Lispro 1 Unit/0.01 Ml Unit) 0 unit SQ Q6 [facility]; Protocol Last Admin: 03/07/22 05:30 Dose: 2 units Labetalol HCl (Labetalol 5 Mg/Ml Ml) 10 - 20 mg IV Q2HP PRN PRN Reason: Hypertension Last Admin: 02/27/22 23:42 Dose: 20 mg Melatonin (Melatonin 3 Mg Tablet) 3 mg PO HSP PRN PRN Reason: Sleep Metoclopramide HCl (Metoclopramide 10 Mg/2 Ml Vial) 10 mg IV Q6 [facility] Last Admin: 03/07/22 05:31 Dose: 10 mg Nystatin (Nystatin Crm 1 Dose Tube) 1 dose TOPICAL TID [facility] Last Admin: 03/06/22 21:30 Dose: Not Given Octreotide Acetate (Octreotide Acetate 100 Mcg/Ml Vial) 100 mcg SQ TID [facility] Last Admin: 03/06/22 21:29 Dose: 100 mcg Oxycodone HCl (Oxycodone Hcl 5 Mg Tablet) 5 mg PO Q4-6HP PRN; Protocol PRN Reason: Per Pain Protocol Last Admin: 03/06/22 16:42 Dose: 5 mg Promethazine HCl (Promethazine 25 Mg/Ml Vial) 12.5 mg IV Q4HP PRN; Protocol PRN Reason: Nausea/Vomiting Last Admin: 03/03/22 19:30 Dose: 12.5 mg Scopolamine (Scopolamine 1 Patch Patch) 1 patch TOPICAL Q72H [facility] Last Admin: 03/06/22 16:53 Dose: Not Given Sodium Chloride (0.9 % Sodium Chloride 10 Ml Syringe) 10 ml IV Q12 [facility] Last Admin: 03/06/22 21:28 Dose: 10 ml Sodium Chloride (0.9 % Sodium Chloride 10 Ml Syringe) 10 ml IV UD PRN PRN Reason: FLUSH Last Admin: 02/26/22 05:18 Dose: 10 ml Tamsulosin HCl (Tamsulosin 0.4 Mg Capsule) 0.4 mg PO HS [facility] Last Admin: 03/06/22 21:29 Dose: 0.4 mg Trazodone HCl (Trazodone Hcl 50 Mg Tablet) 50 mg PO HSP PRN PRN Reason: Insomnia A/P Narrative A/P Narrative: Assessment and Plans: *Cholelithiasis and choledocholithiasis: s/p lap converted to open cholecystectomy (02/18) -per Surgeon *Microperforations/small bowel leak/hematoma/fistula: s/p Ex-lap (02/23) -Leukocytosis resolved -garcía in wound cx *Post-Op Ileus: *Acute hypoxic respiratory failure, post operative: resolved, likely atelectasis and volume overload *PNA: resolved *Essential HTN: elevated but improving *VINCENT on CKD III: fluctuating with events, but now improving *Anemia: *Metabolic acidosis: improved *Hypokalemia: improved *Obesity: BMI 40 *UR: P: -abx per surgery, wound vac -fluconazole -monitor renal fxn -Monitor volume status while receiving TPN -Electrolyte replacement as needed -Incentive spirometry, prn Supplemental oxygen -cont Amlodipine, coreg -flomax started -pt/ot -ppx: heparin / ppi DNR Time Spent With Patient Time: Total time spent is greater than 50% in coordination of care (as documented) at patient's floor/unit and/or counseling patient: Total time spent with greater than 50% in coordination of care (as documented) at patient's floor/unit and/or counseling patient:: 25 - 35 minutes QUALITY VTE Deep Vein Thrombosis/Pulmonary Embolism Present on Admission: No
[2022-03-07 08:16] LABS: ALT/SGPT 34 U/L (<40); AST/SGOT 33 U/L (<40); Albumin 2.9 gm/dL (3.2-5.2); Albumin/Globulin Ratio 0.7 (1.0-2.3); Alkaline Phosphatase 164 U/L (39-117); Bilirubin,Direct 0.2 mg/dL (<0.3); Bilirubin,Total 0.5 mg/dL (0.1-1.0); Blood Urea Nitrogen 31 mg/dL (8-23); Calcium 8.9 mg/dL (8.6-10.4); Carbon Dioxide 23 mmol/L (22-30); Chloride 99 mmol/L (96-108); Globulin 4.1 gm/dL (2.2-3.7); Glomerular Filtration Rate 59; Glucose 147 mg/dL (70-105); Lactate Dehydrogenase 207 U/L (135-225); Phosphorous 2.4 mg/dL (2.5-4.5); Triglycerides 359 mg/dL (<150); Uric Acid 3.9 mg/dL (2.5-8.0)
[2022-03-07] MEDS: OCTREOTIDE ACETATE 100 MCG/ML VIAL SQ SCH ×3 (08:42→21:52)
[2022-03-07] MEDS: HEPARIN 5,000 UNIT/ML VIAL SQ SCH ×2 (08:42→21:52)
[2022-03-07] MEDS: NYSTATIN CRM 1 DOSE TUBE TOPICAL SCH ×3 (08:42→21:54)
[2022-03-07] MEDS: 0.9 % SODIUM CHLORIDE 10 ML SYRINGE IV SCH ×2 (08:43→21:54)
[2022-03-07] MEDS: amLODIPine 5 MG TABLET PO SCH (08:43)
[2022-03-07] MEDS: CARVEDILOL 12.5 MG TABLET PO SCH ×2 (08:43→17:26)
[2022-03-07] MEDS: FLUCONAZOLE 400 MG/200 ML BAG IV SCH (08:44)
[2022-03-07] MEDS: oxyCODONE HCL 5 MG TABLET PO PRN ×2 (11:50→17:26)
--- NOTE | 2022-03-07 14:24 | General Surgery Progress Note ---
SUBJECTIVE Subjective Patient information: Note initiated : 03/07/22 at 2:20 pm Service Date, if different from initiated Date: [] Patient: Jonas Noble 72 y/o M admitted on 02/18/22 for bowel obstruction- Cholelithiasis. Chief Complaint: [] Principal diagnosis: Small bowel microperforation; enterocutaneous fistula Interval history: Patient is continuing to improve. His overall demeanor is much improved and he is more cooperative with his care. He is still not ambulating much more possible this is better. He denies having any respiratory difficulty. His incision is granulating and with decreased output over the past 48 hours TREVER drainage is minimal. White blood count is now normal. Electrolytes normal except for mildly elevated BUN. Urine output is excellent. Constitutional Vitals: Vital Signs Temp Pulse Resp BP Pulse Ox O2 Del Method O2 Flow Rate 97.9 F 72 20 126/70 97 1 03/07/22 11:26 03/07/22 11:26 03/07/22 11:26 03/07/22 11:26 03/07/22 11:26 03/07/22 11:26 02/27/22 07:45 Period Temp Pulse Resp BP Sys/Maza Pulse Ox O2 Del Method O2 Flow Rate Last 24 Hr 97.7 F-99.1 F 70-83 17-28 124-129/56-70 97-99 Room Air-Room Air Intake and Output 03/07/22 03/07/22 03/07/22 03:59 11:59 19:59 Intake Total 200 600 Output Total 1590 975 Balance -1390 -375 Weight 277 lb 11.2 oz 277 lb 11.2 oz Patient Weight 03/08/22 03:59 Weight 277 lb 11.2 oz Intake & Output: Intake & Output 03/07/22 03/07/22 03/07/22 03:59 11:59 19:59 Intake Total 200 600 Output Total 1590 975 Balance -1390 -375 Weight 277 lb 11.2 oz 277 lb 11.2 oz Intake: IV 200 600 DIFLUCAN 400 mg In 200 ml @ 100 200 mls/hr IV 1430,1630 [facility] Rx#: [id number] Merrem 2 gm In Sodium Chloride 100 100 0.9% 100 ml @ 100 mls/hr IV Q8H [facility] Rx#:[id number] Output: Drainage 140 Left Abdomen TREVER Drain 10 Medial Abdomen TREVER Drain 5 midline abdominal incision 125 wound vac Void Amount 9590 975 Other: Urine Appearance Clear Clear Urine Color Yellow Yellow Stool Size Small Stool Color Brown Yellow Stool Consistency Loose # Bowel Movements 1 ENT ENT exam: Present mucous membranes moist, normal external ear exam and normal oropharynx Neck Neck exam: Present full ROM and normal inspection; Absent tenderness Respiratory Respiratory exam: Present normal respiratory exam and CTAB Cardiovascular Cardiovascular exam: Present normal rate and rhythm, RRR, +S1 and +S2; Absent JVD GI/Abdominal GI/Abdominal exam: Present normal bowel sounds, soft and distended (Distention is much improved over the past 2 days) Additional comments: Granulation in the midline incision is improved some mucoid drainage in the central portion of the incision Extremities Exam Extremities exam: Present full ROM, normal inspection and neurovascular intact Neurological Exam Neurological exam: Present oriented X3 and reflexes normal; Absent motor sensory deficit Psychiatric Psychiatric exam: Present normal affect and normal mood A/P Assessment and plan (1) Intestinal fistula: Status: Acute (2) Small bowel perforation: Status: Acute (3) Postoperative ileus: Status: Acute (4) Stage 1 acute kidney injury: Status: Acute (5) Cholelithiasis with choledocholithiasis: Status: Acute Plan Patient is doing very well and will be continued on present therapy. Sepsis Sepsis Identified: No Time Spent With Patient Time: Total time spent is greater than 50% in coordination of care (as documented) at patient's floor/unit and/or counseling patient:
[2022-03-07] MEDS ORDERED: MVI IV SCH (15:00)
[2022-03-07] MEDS ORDERED: POTASSIUM CHLORIDE IV SCH (15:00)
[2022-03-07] MEDS ORDERED: POTASSIUM PHOSPHATE IV SCH (15:00)
[2022-03-07] MEDS ORDERED: [UNRECOGNIZED DRUG - OTHER] IV SCH (15:00)
[2022-03-07] MEDS ORDERED: CALCIUM GLUCONATE IV SCH (15:00)
[2022-03-07] MEDS: ALPRAZolam 0.5 MG TABLET PO PRN (15:48)
[2022-03-07] MEDS: HYDROmorphone 1 MG/ML SYRINGE IV PRN (21:24)
[2022-03-07] MEDS: TAMSULOSIN 0.4 MG CAPSULE PO SCH (21:57)
[2022-03-08] MEDS: ACETAMINOPHEN 1,000 MG/100 ML BAG IV SCH ×4 (00:36→20:31)
[2022-03-08] MEDS: METOCLOPRAMIDE 10 MG/2 ML VIAL IV SCH ×5 (00:37→23:38)
[2022-03-08] MEDS: INSULIN LISPRO 1 UNIT/0.01 ML UNIT SQ SCH ×5 (00:44→23:41)
[2022-03-08] MEDS: MEROPENEM 2 GM in 0.9 % SODIUM CHLORIDE 100 ML IV SCH ×3 (06:22→22:26)
--- NOTE | 2022-03-08 07:47 | Internal Med Progress Note ---
SUBJECTIVE Subjective Patient information: Note initiated : 03/08/22 at 7:46 am Service Date, if different from initiated Date: [] Patient: Jonas Noble 72 y/o M admitted on 02/18/22 for bowel obstruction- Cholelithiasis. Chief Complaint: [] Principal diagnosis: Small bowel microperforation; enterocutaneous fistula Interval history: Patient is a 71 years old gentleman history of essential hypertensions, chronic kidney disease stage III, BPH, presenting with postprandial abdominal pain on February 15, 2022. CT of the abdomen at admission showing dilated common bile duct and intrahepatic ducts with a 6 mm distal common bile duct stone. He also has multiple stones in the gallbladder. Emergent ERCP was performed general surgeon Dr. Stephens performed laparoscopic converted to open cholecystectomy on Friday, February 18, 2022. Patient is tolerated the surgery relatively okay. This morning at shift change around 7 AM, patient was found by his nurse to be tachycardic and tachypneic with rate of breathing and heart rate in the 30s and 140s, respectively. Patient is also showing labored breathing. Rapid response was called and patient was transferred to PCU for higher level of care. Patient is currently is complaining of increased shortness of breath. Abdominal pain is being adequately controlled with IV Tylenol and Dilaudid. Emergent chest x- ray showing acute left-sided infiltrates consistent with pneumonia. Abdominal CT showing bowel gas pattern unremarkable. And no evidence of mechanical small bowel obstructions. CT angiogram chest and abdomen pending at the moment. 02/21: CTA chest: negative of PE, but shows bilateral lung bases infiltrates suggestive of pneumonia. Afebrile overnight. Patient is currently on 1.5-2L/min nasal cannula oxygen. Cultures no growth to date. WBC down trended 17.8-->13.8. Serum Cr worsen from 1.5-->2.4. Patient is complaining of 3 out of 10 abdominal pain. He is having much improved degree of shortness of breath. He denies any cough or wheezing. He denies any fever, chills, or diaphoresis. He denies any nausea or vomiting. NG tube still in place. The patient still currently on n.p.o. status. Patient has not passed any bowel movement yet. Continue Zosyn while monitoring culture results. Repeat chest x-ray today. Continue IV fluid, avoid nephrotoxic agents, and repeat CMP in the morning to trend kidney functions. Rest of the surgical management as per primary team. 02/22: Afebrile overnight. Patient is currently on room air. Blood culture no growth today. Repeat chest x-ray from yesterday showing nearly complete improvement of the infiltrates seen from previous exams. Patient's degree of shortness of breath has greatly improved. Denies any chest pain. Denies any coughing or respiratory wheezings. Denies any fever chills or diaphoresis. He is still made n.p.o. status as per general surgeon Dr. Stephens. 02/23 Patient found to have drainage from incision site this morning with tachycardia. Patient was emergently taken back to the OR found to have small bowel leak and abdominal wall cellulitis with microperforation of the small bowel x3 with localized peritonitis. Patient transferred back to PCU after procedure. Patient had ex lap with closure of Microbrush x3 evacuation of hematoma. Wound VAC placed. Has cough and some shortness of breath. 02/24 Patient feeling much better today. Starting to pass gas. Good urine output with Lasix yesterday. Liter nasal cannula and likely to come off on room air. TREVER drains in place. Renal function stable. 02/25 Patient passing gas no bowel movement yet. No other new complaints other than he said he had a severe nightmare last night and poor sleep but otherwise no new complaints. Patient is on room air. Mild hypokalemia. Renal function looks good. 02/26 No overnight event or new complaints. However he is quite sleepy this morning and per nursing notes he did not sleep well last night. Patient had a bump in his leukocytosis today. Potassium is low and will be replaced. No function looks good today. Other actions per surgery. 02/27 Patient retaining urine after Rg came out. Patient refusing straight cath. We will give Flomax and continue as needed bladder scans. Patient drowsy this morning does complain of little shortness of breath. Leukocytosis worsened today. 02/28 Patient does have some drainage into the abdominal wound, discussed with general surgery. Dr. Stephens feels that this communication is extraperitoneal and not intra-abdominal and not an indication for another exploratory surgery. The patient is somewhat volume overloaded, started Lasix 40 mg IV twice daily. Place Rg catheter for diuresis as the patient is retaining urine. 03/01 Patient appears much more comfortable today, diuresed well after receiving IV Lasix. We will continue with Lasix 20 mg IV twice daily for now as the patient is on a clear liquid diet and the plan is to continue TPN. 03/02 No significant events overnight. Discontinued Rg catheter. Added melatonin at bedtime and hydroxyzine as needed for anxiety. 03/03 Patient feels tired today, white blood cell count increased from 12.2-14.3, creatinine increased mildly. Ordered blood cultures x2, urinalysis, chest x- ray. UA did not show any evidence of UTI, chest x-ray did not show any evidence of a pneumonia. Discontinued Lasix. Continues on meropenem per surgery. Receiving TPN and on clear liquid diet. Increased drainage from wound VAC, patient denies increasing abdominal discomfort. Will monitor renal function closely, if creatinine trends up start IV fluid. 03/04 Patient received IV fluid yesterday evening, renal function improved this morning. The patient feels a little better after receiving IV fluid. He continues to receive IV fluid with TPN and is on a clear liquid diet. Dr. Stephens discussed the patient with tertiary [facility] yesterday for transfer to higher level of care however patient was declined because the surgical staff said the patient surgical management would not change at those facilities. Increased Xanax frequency for anxiety. 03/05 No change overnight. Patient feels about the same. No bowel movements or flatus. Leukocytosis resolved today. 03/06 Small BM this morning. No new complaints. Does get anxious at times. Nurses stated the Xanax for Anxiety seem to knock him out most of the day yesterday. Decrease the dose. 03/07 Patient feeling like he waxes and wanes. Feels bit better than feels worse and better than worse. But on the commode this morning felt like he was going have a bowel movement but did not have any. He cannot quite tell if he is passing any gas. 03/08 Patient says he had a better night. Yesterday evening started using the Acapella incentive spirometry more and feeling like he is clearing his phlegm easier. He did have a small bowel movement this morning. No other new complaints or overnight events. Review of Systems: denies headache/fever/chills/nausea/vomiting/chest pain/diarrhea. Otherwise see above. Constitutional Vitals: Vital Signs Temp Pulse Resp BP Pulse Ox O2 Del Method O2 Flow Rate 97.9 F 72 16 118/64 96 1 03/07/22 16:00 03/07/22 16:00 03/07/22 16:00 03/07/22 16:00 03/07/22 16:00 03/07/22 16:00 02/27/22 07:45 Period Temp Pulse Resp BP Sys/Maza Pulse Ox O2 Del Method O2 Flow Rate Last 24 Hr 97.9 F-97.9 F 72-72 16-20 118-126/64-70 96-97 Room Air-Room Air Intake and Output 03/07/22 03/08/22 03/08/22 19:59 03:59 11:59 Intake Total 2266.5962 300 Output Total 676 1000 200 Balance 1590.5962 -700 -200 Intake & Output: Intake & Output 03/07/22 03/08/22 03/08/22 19:59 03:59 11:59 Intake Total 2266.5962 300 Output Total 676 1000 200 Balance 1590.5962 -700 -200 Intake: IV 2266.5962 300 Calcium Gluconate 10 Meq 2066.5962 Potassium Chloride 20 Meq Potassium Phosphate 40 Meq Infuvite Adult 10 ml Magnesium Sulfate 4.06 Meq Sodium Acetate 30 Meq In Clinimix 5%-20% Solution 2,000 ml @ 85 mls/hr IV DAILY@1500 [facility] Rx#:[id number] Merrem 2 gm In Sodium Chloride 100 100 0.9% 100 ml @ 100 mls/hr IV Q8H [facility] Rx#:[id number] Output: Drainage 110 Left Abdomen TREVER Drain 5 Medial Abdomen TREVER Drain 5 midline abdominal incision 100 wound vac Drainage 16 Left Abdomen TREVER Drain 8 Medial Abdomen TREVER Drain 8 Void Amount 550 1000 200 Other: Urine Appearance Clear Clear Clear Urine Color Dark Yellow Dark Yellow Yellow Urine Odor Normal Normal Stool Size Small Stool Color Brown Stool Consistency Liquid # Bowel Movements 1 Exam: General: Awake, no acute Distress, obese Eyes/N/T: EOMI, Head/Neck: neck supple, CV: RRR, No murmurs, Pulm: Clear b/l, no wheezing/rhonchi/rales, Abd: Distended, hypoactive BS x4, wound VAC in place Ext: no clubbing/cyanosis, b/l LE trace edema Neuro: Awake and alert,, no focal deficits, moves all extremities, Skin: warm/dry OBJ DATA Labs CBC & Chem 7: 03/06/22 05:23 03/07/22 06:00 Labs: Abnormal Lab Results 03/07/22 03/06/22 03/06/22 06:00 05:23 05:23 RBC 3.65 L Hgb 10.4 L Hct 32.9 L Plt Count 445 H Immature Gran % (Auto) 1.6 H [place] % (Auto) 17.5 H [place] # (Auto) 1.66 H Immature Gran # 0.15 H BUN 31 H 29 H Glucose 147 H 172 H Phosphorus 2.4 L GGT 104 H 109 H Alkaline Phosphatase 164 H 149 H Albumin 2.9 L 2.8 L Globulin 4.1 H 4.3 H Albumin/Globulin Ratio 0.7 L 0.7 L Triglycerides 359 H 291 H Meds: Medications Albuterol/Ipratropium (Ipratropium/Albuterol 3 Ml Ampul.Neb) 3 ml NEB Q4HP PRN PRN Reason: Shortness Of Breath Last Admin: 03/05/22 19:58 Dose: 3 ml Alprazolam (Alprazolam 0.5 Mg Tablet) 0.5 mg PO TIDP PRN PRN Reason: Anxiety Last Admin: 03/07/22 15:48 Dose: 0.5 mg Amlodipine Besylate (Amlodipine 5 Mg Tablet) 5 mg PO DAILY [facility] Last Admin: 03/07/22 08:43 Dose: 5 mg Carvedilol (Carvedilol 12.5 Mg Tablet) 25 mg PO BIDCC [facility] Last Admin: 03/07/22 17:26 Dose: 25 mg Dextrose (Dextrose 50% 50 Ml Syringe) 25 - 50 ml IV UD PRN PRN Reason: Hypoglycemia Diagnostic Test (Pha) (Accu-Chek 1 Each Strip) 1 each FS Q6 [facility] Last Admin: 03/08/22 06:24 Dose: 1 each Heparin Sodium (Porcine) (Heparin 5,000 Unit/Ml Vial) 5,000 unit SQ Q12 [facility] Last Admin: 03/07/22 21:52 Dose: 5,000 unit Heparin Sodium (Porcine) (Heparin Flush 10 Units/Ml 5 Ml Syringe) 2 ml IV Q12 [facility] Last Admin: 03/07/22 21:54 Dose: 2 ml Hydralazine HCl (Hydralazine 20 Mg/Ml Vial) 20 mg IV Q4HP PRN PRN Reason: Hypertension Last Admin: 02/27/22 21:08 Dose: 20 mg Hydromorphone HCl (Hydromorphone 1 Mg/Ml Syringe) 0 mg IV Q2HP PRN; Protocol PRN Reason: Per Pain Protocol Last Admin: 03/07/22 21:24 Dose: 1 mg Hydroxyzine HCl (Hydroxyzine 25 Mg Tablet) 25 mg PO TIDP PRN PRN Reason: Allergic Symptoms Acetaminophen (Ofirmev) 1,000 mg in 100 mls @ 200 mls/hr IV Q6H [facility]; Protocol Last Admin: 03/08/22 07:24 Dose: 200 mls/hr Meropenem 2 gm/ Sodium (Chloride) 100 mls @ 100 mls/hr IV Q8H [facility]; Protocol Last Admin: 03/08/22 06:22 Dose: 100 mls/hr Fluconazole (Diflucan) 400 mg in 200 mls @ 100 mls/hr IV Q24H [facility] Last Infusion: 03/07/22 11:31 Dose: Infused Calcium Gluconate 10 meq/Potassium Chloride 40 meq/Potassium Phosphate 20 meq/Multivitamins/Minerals 10 ml/Magnesium Sulfate 4.06 meq/Sodium Acetate 30 meq/ Sodium Phosphate 20 mmol/ Amino Acids 2,078.7175 mls @ 90 mls/hr IV DAILY@1500 [facility] Last Admin: 03/07/22 15:18 Dose: 90 mls/hr Fat Emulsion Intravenous 250 (ml/ Premix) 250 mls @ 25 mls/hr IV Fr@1600 [facility] Insulin Human Lispro (Insulin Lispro 1 Unit/0.01 Ml Unit) 0 unit SQ Q6 [facility]; Protocol Last Admin: 03/08/22 06:24 Dose: Not Given Labetalol HCl (Labetalol 5 Mg/Ml Ml) 10 - 20 mg IV Q2HP PRN PRN Reason: Hypertension Last Admin: 02/27/22 23:42 Dose: 20 mg Melatonin (Melatonin 3 Mg Tablet) 3 mg PO HSP PRN PRN Reason: Sleep Metoclopramide HCl (Metoclopramide 10 Mg/2 Ml Vial) 10 mg IV Q6 [facility] Last Admin: 03/08/22 06:25 Dose: 10 mg Nystatin (Nystatin Crm 1 Dose Tube) 1 dose TOPICAL TID [facility] Last Admin: 03/07/22 21:54 Dose: 1 dose Octreotide Acetate (Octreotide Acetate 100 Mcg/Ml Vial) 100 mcg SQ TID [facility] Last Admin: 03/07/22 21:52 Dose: 100 mcg Oxycodone HCl (Oxycodone Hcl 5 Mg Tablet) 5 mg PO Q4-6HP PRN; Protocol PRN Reason: Per Pain Protocol Last Admin: 03/07/22 17:26 Dose: 5 mg Promethazine HCl (Promethazine 25 Mg/Ml Vial) 12.5 mg IV Q4HP PRN; Protocol PRN Reason: Nausea/Vomiting Last Admin: 03/03/22 19:30 Dose: 12.5 mg Scopolamine (Scopolamine 1 Patch Patch) 1 patch TOPICAL Q72H [facility] Last Admin: 03/06/22 16:53 Dose: Not Given Sodium Chloride (0.9 % Sodium Chloride 10 Ml Syringe) 10 ml IV Q12 [facility] Last Admin: 03/07/22 21:54 Dose: 10 ml Sodium Chloride (0.9 % Sodium Chloride 10 Ml Syringe) 10 ml IV UD PRN PRN Reason: FLUSH Last Admin: 02/26/22 05:18 Dose: 10 ml Tamsulosin HCl (Tamsulosin 0.4 Mg Capsule) 0.4 mg PO HS [facility] Last Admin: 03/07/22 21:57 Dose: 0.4 mg Trazodone HCl (Trazodone Hcl 50 Mg Tablet) 50 mg PO HSP PRN PRN Reason: Insomnia A/P Narrative A/P Narrative: Assessment and Plans: *Cholelithiasis and choledocholithiasis: s/p lap converted to open cholecystectomy (02/18) -per Surgeon *Microperforations/small bowel leak/hematoma/fistula: s/p Ex-lap (02/23) -Leukocytosis resolved -garcía in wound cx *Post-Op Ileus: *Acute hypoxic respiratory failure, post operative: resolved, likely atelectasis and volume overload *PNA: resolved *Essential HTN: improved with med adjustment *VINCENT on CKD III: improved *Anemia: *Metabolic acidosis: improved *Hypokalemia: improved *Obesity: BMI 40 *UR: P: -abx per surgery, wound vac -fluconazole -monitor renal fxn -Monitor volume status while receiving TPN -Electrolyte replacement as needed -Acapella/Incentive spirometry, prn Supplemental oxygen -cont Amlodipine, coreg -flomax started -pt/ot -ppx: heparin / ppi DNR Time Spent With Patient Time: Total time spent is greater than 50% in coordination of care (as documented) at patient's floor/unit and/or counseling patient: Total time spent with greater than 50% in coordination of care (as documented) at patient's floor/unit and/or counseling patient:: 25 - 35 minutes QUALITY VTE Deep Vein Thrombosis/Pulmonary Embolism Present on Admission: No
[2022-03-08] MEDS: CARVEDILOL 12.5 MG TABLET PO SCH ×2 (08:44→17:24)
[2022-03-08] MEDS: amLODIPine 5 MG TABLET PO SCH (08:44)
[2022-03-08] MEDS: HEPARIN 5,000 UNIT/ML VIAL SQ SCH ×2 (08:44→20:21)
[2022-03-08] MEDS: FLUCONAZOLE 400 MG/200 ML BAG IV SCH (08:55)
[2022-03-08] MEDS: OCTREOTIDE ACETATE 100 MCG/ML VIAL SQ SCH ×3 (08:56→20:42)
[2022-03-08] MEDS: 0.9 % SODIUM CHLORIDE 10 ML SYRINGE IV SCH ×2 (08:59→20:05)
[2022-03-08 09:53] LABS: ALT/SGPT 26 U/L (<40); AST/SGOT 29 U/L (<40); Albumin 2.8 gm/dL (3.2-5.2); Albumin/Globulin Ratio 0.7 (1.0-2.3); Alkaline Phosphatase 154 U/L (39-117); Bilirubin,Direct 0.2 mg/dL (<0.3); Bilirubin,Total 0.6 mg/dL (0.1-1.0); Blood Urea Nitrogen 30 mg/dL (8-23); Calcium 8.9 mg/dL (8.6-10.4); Carbon Dioxide 24 mmol/L (22-30); Chloride 99 mmol/L (96-108); Globulin 4.1 gm/dL (2.2-3.7); Glomerular Filtration Rate 74; Glucose 147 mg/dL (70-105); Lactate Dehydrogenase 205 U/L (135-225); Phosphorous 2.8 mg/dL (2.5-4.5); Triglycerides 348 mg/dL (<150); Uric Acid 3.7 mg/dL (2.5-8.0)
[2022-03-08] MEDS: NYSTATIN CRM 1 DOSE TUBE TOPICAL SCH ×3 (11:41→20:23)
--- NOTE | 2022-03-08 13:06 | General Surgery Progress Note ---
SUBJECTIVE Subjective Patient information: Note initiated : 03/08/22 at 12:59 pm Service Date, if different from initiated Date: [] Patient: Jonas Noble 72 y/o M admitted on 02/18/22 for bowel obstruction- Cholelithiasis. Chief Complaint: [] Principal diagnosis: Small bowel microperforation; enterocutaneous fistula Interval history: Patient is continuing to improve. He has been afebrile and all of his vitals are stable. Room air saturation is 98% also output through his fistula is significantly reduced and is less than 100 cc over the past 18 hours .ABDOMINAL WALL CONTINUES TO LOOK GOOD. Constitutional Vitals: Vital Signs Temp Pulse Resp BP Pulse Ox O2 Del Method O2 Flow Rate 97.7 F 77 20 139/70 99 0 03/08/22 08:00 03/08/22 08:00 03/08/22 08:00 03/08/22 08:00 03/08/22 08:00 03/08/22 08:00 03/08/22 00:00 Period Temp Pulse Resp BP Sys/Maza Pulse Ox O2 Del Method O2 Flow Rate Last 24 Hr 97.7 F-98.4 F 67-77 - 111-139/64-75 96-99 Room Air-Room Air 0-0 Intake and Output 03/08/22 03/08/22 03/08/22 03:59 11:59 19:59 Intake Total 300 200 Output Total 1000 200 Balance -700 0 Weight 276 lb 8 oz Intake & Output: Intake & Output 03/08/22 03/08/22 03/08/22 03:59 11:59 19:59 Intake Total 300 200 Output Total 1000 200 Balance -700 0 Weight 276 lb 8 oz Intake: IV 300 200 Merrem 2 gm In Sodium Chloride 100 100 0.9% 100 ml @ 100 mls/hr IV Q8H [facility] Rx#:[id number] Output: Void Amount 1000 200 Other: Urine Appearance Clear Clear Urine Color Dark Yellow Yellow Urine Odor Normal Normal Stool Size Small Stool Color Brown Stool Consistency Liquid # Bowel Movements 1 ENT ENT exam: Present mucous membranes moist and normal oropharynx Neck Neck exam: Present full ROM and normal inspection Respiratory Respiratory exam: Present normal respiratory exam and CTAB Cardiovascular Cardiovascular exam: Present normal rate and rhythm, RRR, +S1 and +S2; Absent JVD GI/Abdominal GI/Abdominal exam: Present normal bowel sounds and soft; Absent distended or tenderness Extremities Exam Extremities exam: Present normal inspection and neurovascular intact Back Exam Back exam: Present normal inspection Neurological Exam Neurological exam: Present oriented X3 and reflexes normal; Absent motor sensory deficit Psychiatric Psychiatric exam: Present normal affect and normal mood A/P Assessment and plan (1) Intestinal fistula: Status: Acute (2) Small bowel perforation: Status: Acute (3) Essential hypertension: Status: Chronic Comment: Controlled with valsartan 320 mg at bedtime => now discontinued No longer requiring amlodipine or thiazide Time Spent With Patient Time: Total time spent is greater than 50% in coordination of care (as documented) at patient's floor/unit and/or counseling patient:
[2022-03-08] MEDS: HYDROmorphone 1 MG/ML SYRINGE IV PRN (13:08)
[2022-03-08] MEDS ORDERED: POTASSIUM PHOSPHATE IV SCH (15:00)
[2022-03-08] MEDS ORDERED: POTASSIUM CHLORIDE IV SCH (15:00)
[2022-03-08] MEDS ORDERED: MVI IV SCH (15:00)
[2022-03-08] MEDS ORDERED: [UNRECOGNIZED DRUG - OTHER] IV SCH (15:00)
[2022-03-08] MEDS ORDERED: CALCIUM GLUCONATE IV SCH (15:00)
[2022-03-08] MEDS: ALTEPLASE 2 MG VIAL IV ONE ×2 (17:28→18:49)
[2022-03-08] MEDS: DEXTROSE 10 % IN WATER 1,000 ML IV SCH (19:50)
[2022-03-08] MEDS: TAMSULOSIN 0.4 MG CAPSULE PO SCH (20:22)
[2022-03-08] MEDS: MELATONIN 3 MG TABLET PO PRN (20:22)
[2022-03-08] MEDS ORDERED: FAMOTIDINE/PF 20 MG/2 ML VIAL IV ONE (20:51)
[2022-03-08] MEDS: SUCRETS LOZENGE PO PRN (22:52)
[2022-03-09] MEDS: ACETAMINOPHEN 1,000 MG/100 ML BAG IV SCH ×4 (00:56→19:49)
--- NOTE | 2022-03-09 01:33 | XRay Report ---
CLINICAL INFORMATION: Central line placement COMPARISON: None. TECHNIQUE: Portable FINDINGS: Right AJ central line tip overlies the lower internal jugular vein in the lower right neck region. Moderate cardiomegaly is unchanged. Moderate mediastinal widening also stable. Pulmonary vasculature unremarkable. Minor bibasilar atelectasis noted. No effusions. IMPRESSION: Right IJ line tip overlying the lower right internal jugular vein. Moderate cardiomegaly and mediastinal widening stable Interpreted and Authenticated by: Alonzo Canchola 03/09/22
[2022-03-09] MEDS: INSULIN LISPRO 1 UNIT/0.01 ML UNIT SQ SCH ×3 (05:37→18:08)
[2022-03-09] MEDS: METOCLOPRAMIDE 10 MG/2 ML VIAL IV SCH ×3 (05:37→18:13)
[2022-03-09] MEDS: MEROPENEM 2 GM in 0.9 % SODIUM CHLORIDE 100 ML IV SCH ×3 (05:54→21:53)
--- NOTE | 2022-03-09 06:51 | Internal Med Progress Note ---
SUBJECTIVE Subjective Patient information: Note initiated : 03/09/22 at 6:51 am Service Date, if different from initiated Date: [] Patient: Jonas Noble 72 y/o M admitted on 02/18/22 for bowel obstruction- Cholelithiasis. Chief Complaint: [] Principal diagnosis: Small bowel microperforation; enterocutaneous fistula Interval history: Patient is a 71 years old gentleman history of essential hypertensions, chronic kidney disease stage III, BPH, presenting with postprandial abdominal pain on February 15, 2022. CT of the abdomen at admission showing dilated common bile duct and intrahepatic ducts with a 6 mm distal common bile duct stone. He also has multiple stones in the gallbladder. Emergent ERCP was performed general surgeon Dr. Stephens performed laparoscopic converted to open cholecystectomy on Friday, February 18, 2022. Patient is tolerated the surgery relatively okay. This morning at shift change around 7 AM, patient was found by his nurse to be tachycardic and tachypneic with rate of breathing and heart rate in the 30s and 140s, respectively. Patient is also showing labored breathing. Rapid response was called and patient was transferred to PCU for higher level of care. Patient is currently is complaining of increased shortness of breath. Abdominal pain is being adequately controlled with IV Tylenol and Dilaudid. Emergent chest x- ray showing acute left-sided infiltrates consistent with pneumonia. Abdominal CT showing bowel gas pattern unremarkable. And no evidence of mechanical small bowel obstructions. CT angiogram chest and abdomen pending at the moment. 02/21: CTA chest: negative of PE, but shows bilateral lung bases infiltrates suggestive of pneumonia. Afebrile overnight. Patient is currently on 1.5-2L/min nasal cannula oxygen. Cultures no growth to date. WBC down trended 17.8-->13.8. Serum Cr worsen from 1.5-->2.4. Patient is complaining of 3 out of 10 abdominal pain. He is having much improved degree of shortness of breath. He denies any cough or wheezing. He denies any fever, chills, or diaphoresis. He denies any nausea or vomiting. NG tube still in place. The patient still currently on n.p.o. status. Patient has not passed any bowel movement yet. Continue Zosyn while monitoring culture results. Repeat chest x-ray today. Continue IV fluid, avoid nephrotoxic agents, and repeat CMP in the morning to trend kidney functions. Rest of the surgical management as per primary team. 02/22: Afebrile overnight. Patient is currently on room air. Blood culture no growth today. Repeat chest x-ray from yesterday showing nearly complete improvement of the infiltrates seen from previous exams. Patient's degree of shortness of breath has greatly improved. Denies any chest pain. Denies any coughing or respiratory wheezings. Denies any fever chills or diaphoresis. He is still made n.p.o. status as per general surgeon Dr. Stephens. 02/23 Patient found to have drainage from incision site this morning with tachycardia. Patient was emergently taken back to the OR found to have small bowel leak and abdominal wall cellulitis with microperforation of the small bowel x3 with localized peritonitis. Patient transferred back to PCU after procedure. Patient had ex lap with closure of Microbrush x3 evacuation of hematoma. Wound VAC placed. Has cough and some shortness of breath. 02/24 Patient feeling much better today. Starting to pass gas. Good urine output with Lasix yesterday. Liter nasal cannula and likely to come off on room air. TREVER drains in place. Renal function stable. 02/25 Patient passing gas no bowel movement yet. No other new complaints other than he said he had a severe nightmare last night and poor sleep but otherwise no new complaints. Patient is on room air. Mild hypokalemia. Renal function looks good. 02/26 No overnight event or new complaints. However he is quite sleepy this morning and per nursing notes he did not sleep well last night. Patient had a bump in his leukocytosis today. Potassium is low and will be replaced. No function looks good today. Other actions per surgery. 02/27 Patient retaining urine after Rg came out. Patient refusing straight cath. We will give Flomax and continue as needed bladder scans. Patient drowsy this morning does complain of little shortness of breath. Leukocytosis worsened today. 02/28 Patient does have some drainage into the abdominal wound, discussed with general surgery. Dr. Stephens feels that this communication is extraperitoneal and not intra-abdominal and not an indication for another exploratory surgery. The patient is somewhat volume overloaded, started Lasix 40 mg IV twice daily. Place Rg catheter for diuresis as the patient is retaining urine. 03/01 Patient appears much more comfortable today, diuresed well after receiving IV Lasix. We will continue with Lasix 20 mg IV twice daily for now as the patient is on a clear liquid diet and the plan is to continue TPN. 03/02 No significant events overnight. Discontinued Rg catheter. Added melatonin at bedtime and hydroxyzine as needed for anxiety. 03/03 Patient feels tired today, white blood cell count increased from 12.2-14.3, creatinine increased mildly. Ordered blood cultures x2, urinalysis, chest x- ray. UA did not show any evidence of UTI, chest x-ray did not show any evidence of a pneumonia. Discontinued Lasix. Continues on meropenem per surgery. Receiving TPN and on clear liquid diet. Increased drainage from wound VAC, patient denies increasing abdominal discomfort. Will monitor renal function closely, if creatinine trends up start IV fluid. 03/04 Patient received IV fluid yesterday evening, renal function improved this morning. The patient feels a little better after receiving IV fluid. He continues to receive IV fluid with TPN and is on a clear liquid diet. Dr. Stephens discussed the patient with [facility] for transfer to higher level of care however patient was declined because the surgical staff said the patient surgical management would not change at those facilities. Increased Xanax frequency for anxiety. 03/05 No change overnight. Patient feels about the same. No bowel movements or flatus. Leukocytosis resolved today. 03/06 Small BM this morning. No new complaints. Does get anxious at times. Nurses stated the Xanax for Anxiety seem to knock him out most of the day yesterday. Decrease the dose. 03/07 Patient feeling like he waxes and wanes. Feels bit better than feels worse and better than worse. But on the commode this morning felt like he was going have a bowel movement but did not have any. He cannot quite tell if he is passing any gas. 03/08 Patient says he had a better night. Yesterday evening started using the Acapella incentive spirometry more and feeling like he is clearing his phlegm easier. He did have a small bowel movement this morning. No other new complaints or overnight events. 03/09 Feeling about the same as yesterday. Slow progress but he says he did have a bowel movement this morning. Pending chemistry and will follow up. Low sodium yesterday. Review of Systems: denies headache/fever/chills/nausea/vomiting/chest pain/diarrhea. Otherwise see above. Constitutional Vitals: Vital Signs Temp Pulse Resp BP Pulse Ox O2 Del Method O2 Flow Rate 97.6 F 66 20 112/64 96 0 03/09/22 03:39 03/09/22 03:39 03/09/22 03:39 03/09/22 03:39 03/09/22 03:39 03/09/22 03:39 03/08/22 00:00 Period Temp Pulse Resp BP Sys/Maza Pulse Ox O2 Del Method O2 Flow Rate Last 24 Hr 97.2 F-98.6 F 66-78 16-20 105-139/61-87 96-100 Room Air-Room Air Intake and Output 03/08/22 03/09/22 03/09/22 19:59 03:59 11:59 Intake Total 2564.7175 622 528 Output Total 365 458 625 Balance 2199.7175 164 -97 Weight 127.641 kg Intake & Output: Intake & Output 03/08/22 03/09/22 03/09/22 19:59 03:59 11:59 Intake Total 2564.7175 622 528 Output Total 365 458 625 Balance 2199.7175 164 -97 Weight 127.641 kg Intake: IV 2564.7175 522 528 Calcium Gluconate 10 Meq 2364.7175 Potassium Chloride 40 Meq Potassium Phosphate 20 Meq Infuvite Adult 10 ml Magnesium Sulfate 4.06 Meq Sodium Acetate 40 Meq Sodium Phosphate 40 Mmol In Clinimix 5%-20% Solution 2,000 ml @ 85 mls/hr IV DAILY@1500 [facility] Rx#:[id number] Dextrose 10%-Water IV Solution 222 528 1,000 ml @ 85 mls/hr IV . [id number] [facility] Rx#:[id number] Merrem 2 gm In Sodium Chloride 100 100 0.9% 100 ml @ 100 mls/hr IV Q8H [facility] Rx#:[id number] Oral 100 Output: Drainage 15 8 Left Abdomen TREVER Drain 10 5 Medial Abdomen TREVER Drain 5 3 Void Amount 350 Urine/Stool Mix 450 625 Other: Urine Appearance Clear Urine Color Yellow # Voids 1 Exam: General: Awake, no acute Distress, obese Eyes/N/T: EOMI, Head/Neck: neck supple, CV: RRR, No murmurs, Pulm: Clear b/l, no wheezing/rhonchi/rales, Abd: Distended, hypoactive BS x4, wound VAC in place Ext: no clubbing/cyanosis, b/l LE trace edema Neuro: Awake and alert, no focal deficits, moves all extremities, Skin: warm/dry OBJ DATA Labs CBC & Chem 7: 03/09/22 06:06 03/08/22 08:58 Labs: Abnormal Lab Results 03/08/22 03/07/22 03/06/22 08:58 06:00 05:23 RBC Hgb Hct Plt Count Immature Gran % (Auto) [place] % (Auto) [place] # (Auto) Immature Gran # Sodium 130 L Anion Gap 7.0 L BUN 30 H 31 H 29 H Glucose 147 H 147 H 172 H Phosphorus 2.4 L GGT 89 H 104 H 109 H Alkaline Phosphatase 154 H 164 H 149 H Albumin 2.8 L 2.9 L 2.8 L Globulin 4.1 H 4.1 H 4.3 H Albumin/Globulin Ratio 0.7 L 0.7 L 0.7 L Triglycerides 348 H 359 H 291 H 03/06/22 05:23 RBC 3.65 L Hgb 10.4 L Hct 32.9 L Plt Count 445 H Immature Gran % (Auto) 1.6 H [place] % (Auto) 17.5 H [place] # (Auto) 1.66 H Immature Gran # 0.15 H Sodium Anion Gap BUN Glucose Phosphorus GGT Alkaline Phosphatase Albumin Globulin Albumin/Globulin Ratio Triglycerides Meds: Medications Albuterol/Ipratropium (Ipratropium/Albuterol 3 Ml Ampul.Neb) 3 ml NEB Q4HP PRN PRN Reason: Shortness Of Breath Last Admin: 03/05/22 19:58 Dose: 3 ml Alprazolam (Alprazolam 0.5 Mg Tablet) 0.5 mg PO TIDP PRN PRN Reason: Anxiety Last Admin: 03/07/22 15:48 Dose: 0.5 mg Amlodipine Besylate (Amlodipine 5 Mg Tablet) 5 mg PO DAILY [facility] Last Admin: 03/08/22 08:44 Dose: 5 mg Carvedilol (Carvedilol 12.5 Mg Tablet) 25 mg PO BIDCC [facility] Last Admin: 03/08/22 17:24 Dose: 25 mg Dextrose (Dextrose 50% 50 Ml Syringe) 25 - 50 ml IV UD PRN PRN Reason: Hypoglycemia Diagnostic Test (Pha) (Accu-Chek 1 Each Strip) 1 each FS Q6 [facility] Last Admin: 03/09/22 05:37 Dose: 1 each Heparin Sodium (Porcine) (Heparin 5,000 Unit/Ml Vial) 5,000 unit SQ Q12 [facility] Last Admin: 03/08/22 20:21 Dose: 5,000 unit Heparin Sodium (Porcine) (Heparin Flush 10 Units/Ml 5 Ml Syringe) 2 ml IV Q12 [facility] Last Admin: 03/08/22 20:05 Dose: Not Given Hydralazine HCl (Hydralazine 20 Mg/Ml Vial) 20 mg IV Q4HP PRN PRN Reason: Hypertension Last Admin: 02/27/22 21:08 Dose: 20 mg Hydromorphone HCl (Hydromorphone 1 Mg/Ml Syringe) 0 mg IV Q2HP PRN; Protocol PRN Reason: Per Pain Protocol Last Admin: 03/08/22 13:08 Dose: 1 mg Hydroxyzine HCl (Hydroxyzine 25 Mg Tablet) 25 mg PO TIDP PRN PRN Reason: Allergic Symptoms Acetaminophen (Ofirmev) 1,000 mg in 100 mls @ 200 mls/hr IV Q6H [facility]; Protocol Last Infusion: 03/09/22 01:34 Dose: Infused Meropenem 2 gm/ Sodium (Chloride) 100 mls @ 100 mls/hr IV Q8H [facility]; Protocol Last Admin: 03/09/22 05:54 Dose: 100 mls/hr Fluconazole (Diflucan) 400 mg in 200 mls @ 100 mls/hr IV Q24H [facility] Last Infusion: 03/08/22 10:55 Dose: Infused Fat Emulsion Intravenous 250 (ml/ Premix) 250 mls @ 25 mls/hr IV Fr@1600 [facility] Calcium Gluconate 10 meq/Potassium Chloride 40 meq/Potassium Phosphate 20 meq/Multivitamins/Minerals 10 ml/Magnesium Sulfate 4.06 meq/Sodium Acetate 40 meq/ Sodium Phosphate 40 mmol/ Amino Acids 2,090.3841 mls @ 85 mls/hr IV DAILY@1500 [facility] Last Infusion: 03/08/22 18:30 Dose: 0 mls/hr Dextrose (Dextrose 10%-Water Iv Solution) 1,000 mls @ 85 mls/hr IV .[id number] [facility] Last Infusion: 03/09/22 05:55 Dose: 0 mls/hr Insulin Human Lispro (Insulin Lispro 1 Unit/0.01 Ml Unit) 0 unit SQ Q6 [facility]; Protocol Last Admin: 03/09/22 05:37 Dose: Not Given Labetalol HCl (Labetalol 5 Mg/Ml Ml) 10 - 20 mg IV Q2HP PRN PRN Reason: Hypertension Last Admin: 02/27/22 23:42 Dose: 20 mg Melatonin (Melatonin 3 Mg Tablet) 3 mg PO HSP PRN PRN Reason: Sleep Last Admin: 03/08/22 20:22 Dose: 3 mg Metoclopramide HCl (Metoclopramide 10 Mg/2 Ml Vial) 10 mg IV Q6 [facility] Last Admin: 03/09/22 05:37 Dose: 10 mg Nystatin (Nystatin Crm 1 Dose Tube) 1 dose TOPICAL TID [facility] Last Admin: 03/08/22 20:23 Dose: Not Given Octreotide Acetate (Octreotide Acetate 100 Mcg/Ml Vial) 100 mcg SQ TID [facility] Last Admin: 03/08/22 20:42 Dose: 100 mcg Oxycodone HCl (Oxycodone Hcl 5 Mg Tablet) 5 mg PO Q4-6HP PRN; Protocol PRN Reason: Per Pain Protocol Last Admin: 03/07/22 17:26 Dose: 5 mg Promethazine HCl (Promethazine 25 Mg/Ml Vial) 12.5 mg IV Q4HP PRN; Protocol PRN Reason: Nausea/Vomiting Last Admin: 03/03/22 19:30 Dose: 12.5 mg Scopolamine (Scopolamine 1 Patch Patch) 1 patch TOPICAL Q72H [facility] Last Admin: 03/06/22 16:53 Dose: Not Given Sodium Chloride (0.9 % Sodium Chloride 10 Ml Syringe) 10 ml IV Q12 [facility] Last Admin: 03/08/22 20:05 Dose: Not Given Sodium Chloride (0.9 % Sodium Chloride 10 Ml Syringe) 10 ml IV UD PRN PRN Reason: FLUSH Last Admin: 02/26/22 05:18 Dose: 10 ml Tamsulosin HCl (Tamsulosin 0.4 Mg Capsule) 0.4 mg PO HS [facility] Last Admin: 03/08/22 20:22 Dose: 0.4 mg Trazodone HCl (Trazodone Hcl 50 Mg Tablet) 50 mg PO HSP PRN PRN Reason: Insomnia A/P Narrative A/P Narrative: Assessment and Plans: *Cholelithiasis and choledocholithiasis: s/p lap converted to open cholecystectomy (02/18) -per Surgeon *Microperforations/small bowel leak/hematoma/fistula: s/p Ex-lap (02/23) -Leukocytosis resolved -garcía in wound cx *Post-Op Ileus: *Acute hypoxic respiratory failure, post operative: resolved, likely atelectasis and volume overload *PNA: resolved *Essential HTN: improved with med adjustment *VINCENT on CKD III: improved *Anemia: *Metabolic acidosis: improved *Hypokalemia: improved *Obesity: BMI 40 *UR: P: -abx per surgery, wound vac -fluconazole -Monitor volume status while receiving TPN -monitor renal fxn -Electrolyte replacement as needed -Acapella/Incentive spirometry, prn Supplemental oxygen -cont Amlodipine, coreg -flomax started -pt/ot -ppx: heparin / ppi DNR Time Spent With Patient Time: Total time spent is greater than 50% in coordination of care (as documented) at patient's floor/unit and/or counseling patient: Total time spent with greater than 50% in coordination of care (as documented) at patient's floor/unit and/or counseling patient:: 25 - 35 minutes QUALITY VTE Deep Vein Thrombosis/Pulmonary Embolism Present on Admission: No
[2022-03-09 07:07] LABS: Basophils # (Auto) 0.17 K/mcL (0.00-0.30); Basophils % (Auto) 2.4 % (0.0-2.0); Eosinophils # (Auto) 0.15 K/mcL (0.00-0.70); Eosinophils % (Auto) 2.1 % (0.0-7.0); Hematocrit 32.8 % (40.1-51.0); Hemoglobin 10.3 g/dL (13.7-17.5); Lymphocytes # (Auto) 2.17 K/mcL (1.50-4.80); Lymphocytes % (Auto) 30.3 % (15.5-49.0); Mean Cell Volume 89.4 fL (80.0-100.0); Mean Corpuscular HGB Conc 31.4 g/dL (31.0-36.0); Mean Platelet Volume 9.5 fL (8.8-12.5); Monocytes # (Auto) 0.93 K/mcL (0.10-0.90); Neutrophils % (Auto) 50.8 % (38.0-78.0); Platelet Count 356 K/mcL (140-440); RBC 3.67 M/mcL (4.63-6.08); WBC 7.2 K/mcL (4.5-11.0)
[2022-03-09] MEDS: SUCRETS LOZENGE PO PRN ×4 (07:11→18:38)
[2022-03-09] MEDS: DEXTROSE 10 % IN WATER 1,000 ML IV SCH ×2 (07:53→18:25)
[2022-03-09 08:17] LABS: ALT/SGPT 28 U/L (<40); AST/SGOT 31 U/L (<40); Albumin 2.7 gm/dL (3.2-5.2); Albumin/Globulin Ratio 0.6 (1.0-2.3); Alkaline Phosphatase 171 U/L (39-117); Bilirubin,Direct 0.2 mg/dL (<0.3); Bilirubin,Total 0.7 mg/dL (0.1-1.0); Blood Urea Nitrogen 29 mg/dL (8-23); Calcium 9.1 mg/dL (8.6-10.4); Carbon Dioxide 23 mmol/L (22-30); Chloride 98 mmol/L (96-108); Globulin 4.4 gm/dL (2.2-3.7); Glomerular Filtration Rate 66; Glucose 137 mg/dL (70-105); Lactate Dehydrogenase 222 U/L (135-225); Phosphorous 2.7 mg/dL (2.5-4.5); Triglycerides 385 mg/dL (<150); Uric Acid 4.3 mg/dL (2.5-8.0)
[2022-03-09] MEDS: CARVEDILOL 12.5 MG TABLET PO SCH ×2 (08:19→17:02)
[2022-03-09] MEDS: NYSTATIN CRM 1 DOSE TUBE TOPICAL SCH ×3 (09:31→20:25)
[2022-03-09] MEDS: OCTREOTIDE ACETATE 100 MCG/ML VIAL SQ SCH ×3 (10:06→21:47)
[2022-03-09] MEDS: HEPARIN 5,000 UNIT/ML VIAL SQ SCH ×2 (10:06→21:47)
[2022-03-09] MEDS: FLUCONAZOLE 400 MG/200 ML BAG IV SCH ×2 (10:06→10:09)
[2022-03-09] MEDS: amLODIPine 5 MG TABLET PO SCH (10:06)
[2022-03-09] MEDS: 0.9 % SODIUM CHLORIDE 10 ML SYRINGE IV SCH ×2 (10:06→21:48)
--- NOTE | 2022-03-09 12:13 | Internal Med Progress Note ---
SUBJECTIVE Subjective Patient information: Note initiated : 03/09/22 at 12:12 pm Service Date, if different from initiated Date: [] Patient: Jonas Noble 72 y/o M admitted on 02/18/22 for bowel obstruction- Cholelithiasis. Chief Complaint: [] Principal diagnosis: Small bowel microperforation; enterocutaneous fistula Interval history: 03/10 No significant events overnight, the patient is having bowel movements. Cont inues on TPN and clear liquid diet. Patient is on meropenem and on fluconazole per general surgery. Tentative plan is for [facility] pending CT abdomen and pelvis results. Physical exam Head: Atraumatic, normal inspection. Eyes: normal appearance, no scleral icterus. Neck: full ROM Respiratory: no respiratory distress. Cardiovascular: normal rate and rhythm, S1, S2. GI/Abdominal: Distended abdomen with anterior surgical incision covered with wound VAC, 2 abdominal drains present, soft, nontender, no guarding. Extremities: full range of motion, nontender. Neurological: CN II-XII intact, intact motor, intact sensation. Psychiatric: normal mood. Skin: warm, normal color Constitutional Vitals: Vital Signs Temp Pulse Resp BP Pulse Ox O2 Del Method O2 Flow Rate 98.6 F 66 16 125/66 98 0 03/09/22 08:00 03/09/22 03:39 03/09/22 08:00 03/09/22 08:00 03/09/22 10:00 03/09/22 10:00 03/08/22 00:00 Period Temp Pulse Resp BP Sys/Maza Pulse Ox O2 Del Method O2 Flow Rate Last 24 Hr 97.2 F-98.6 F 66-78 16-20 105-129/61-87 96-100 Room Air-Room Air Intake and Output 03/09/22 03/09/22 03/09/22 03:59 11:59 19:59 Intake Total 622 728 Output Total 458 1275 Balance 164 -547 Intake & Output: Intake & Output 03/09/22 03/09/22 03/09/22 03:59 11:59 19:59 Intake Total 622 728 Output Total 458 1275 Balance 164 -547 Intake: IV 522 728 Dextrose 10%-Water IV Solution 222 528 1,000 ml @ 85 mls/hr IV . [id number] [facility] Rx#:[id number] Merrem 2 gm In Sodium Chloride 100 100 0.9% 100 ml @ 100 mls/hr IV Q8H [facility] Rx#:[id number] Oral 100 Output: Drainage 8 Left Abdomen TREVER Drain 5 Medial Abdomen TREVER Drain 3 Urine/Stool Mix 450 1275 Other: Stool Color Brown Yellow Stool Consistency Watery OBJ DATA Labs CBC & Chem 7: 03/10/22 06:04 03/10/22 06:04 Labs: Abnormal Lab Results 03/09/22 03/09/22 03/08/22 06:06 06:06 08:58 RBC 3.67 L Hgb 10.3 L Hct 32.8 L Immature Gran % (Auto) 1.4 H [place] % (Auto) 13.0 H Baso % (Auto) 2.4 H [place] # (Auto) 0.93 H Immature Gran # 0.10 H Sodium 132 L 130 L Anion Gap 7.0 L BUN 29 H 30 H Glucose 137 H 147 H Phosphorus GGT 83 H 89 H Alkaline Phosphatase 171 H 154 H Albumin 2.7 L 2.8 L Globulin 4.4 H 4.1 H Albumin/Globulin Ratio 0.6 L 0.7 L Triglycerides 385 H 348 H 03/07/22 06:00 RBC Hgb Hct Immature Gran % (Auto) [place] % (Auto) Baso % (Auto) [place] # (Auto) Immature Gran # Sodium Anion Gap BUN 31 H Glucose 147 H Phosphorus 2.4 L GGT 104 H Alkaline Phosphatase 164 H Albumin 2.9 L Globulin 4.1 H Albumin/Globulin Ratio 0.7 L Triglycerides 359 H Meds: Medications Albuterol/Ipratropium (Ipratropium/Albuterol 3 Ml Ampul.Neb) 3 ml NEB Q4HP PRN PRN Reason: Shortness Of Breath Last Admin: 03/05/22 19:58 Dose: 3 ml Alprazolam (Alprazolam 0.5 Mg Tablet) 0.5 mg PO TIDP PRN PRN Reason: Anxiety Last Admin: 03/07/22 15:48 Dose: 0.5 mg Amlodipine Besylate (Amlodipine 5 Mg Tablet) 5 mg PO DAILY [facility] Last Admin: 03/09/22 10:06 Dose: Not Given Carvedilol (Carvedilol 12.5 Mg Tablet) 25 mg PO BIDCC [facility] Last Admin: 03/09/22 08:19 Dose: 25 mg Dextrose (Dextrose 50% 50 Ml Syringe) 25 - 50 ml IV UD PRN PRN Reason: Hypoglycemia Diagnostic Test (Pha) (Accu-Chek 1 Each Strip) 1 each FS Q6 [facility] Last Admin: 03/09/22 11:54 Dose: Not Given Heparin Sodium (Porcine) (Heparin 5,000 Unit/Ml Vial) 5,000 unit SQ Q12 [facility] Last Admin: 03/09/22 10:06 Dose: 5,000 unit Heparin Sodium (Porcine) (Heparin Flush 10 Units/Ml 5 Ml Syringe) 2 ml IV Q12 [facility] Last Admin: 03/09/22 09:30 Dose: Not Given Hydralazine HCl (Hydralazine 20 Mg/Ml Vial) 20 mg IV Q4HP PRN PRN Reason: Hypertension Last Admin: 02/27/22 21:08 Dose: 20 mg Hydromorphone HCl (Hydromorphone 1 Mg/Ml Syringe) 0 mg IV Q2HP PRN; Protocol PRN Reason: Per Pain Protocol Last Admin: 03/08/22 13:08 Dose: 1 mg Hydroxyzine HCl (Hydroxyzine 25 Mg Tablet) 25 mg PO TIDP PRN PRN Reason: Allergic Symptoms Acetaminophen (Ofirmev) 1,000 mg in 100 mls @ 200 mls/hr IV Q6H [facility]; Protocol Last Infusion: 03/09/22 07:56 Dose: Infused Meropenem 2 gm/ Sodium (Chloride) 100 mls @ 100 mls/hr IV Q8H [facility]; Protocol Last Infusion: 03/09/22 06:34 Dose: Infused Fluconazole (Diflucan) 400 mg in 200 mls @ 100 mls/hr IV Q24H [facility] Last Admin: 03/09/22 10:09 Dose: 100 mls/hr Fat Emulsion Intravenous 250 (ml/ Premix) 250 mls @ 25 mls/hr IV Fr@1600 [facility] Calcium Gluconate 10 meq/Potassium Chloride 40 meq/Potassium Phosphate 20 meq/Multivitamins/Minerals 10 ml/Magnesium Sulfate 4.06 meq/Sodium Acetate 40 me q/ Sodium Phosphate 40 mmol/ Amino Acids 2,090.3841 mls @ 85 mls/hr IV DAILY@1500 [facility] Last Infusion: 03/08/22 18:30 Dose: 0 mls/hr Dextrose (Dextrose 10%-Water Iv Solution) 1,000 mls @ 85 mls/hr IV .[id number] [facility] Last Admin: 03/09/22 07:53 Dose: Not Given Insulin Human Lispro (Insulin Lispro 1 Unit/0.01 Ml Unit) 0 unit SQ Q6 [facility]; Protocol Last Admin: 03/09/22 11:54 Dose: Not Given Labetalol HCl (Labetalol 5 Mg/Ml Ml) 10 - 20 mg IV Q2HP PRN PRN Reason: Hypertension Last Admin: 02/27/22 23:42 Dose: 20 mg Melatonin (Melatonin 3 Mg Tablet) 3 mg PO HSP PRN PRN Reason: Sleep Last Admin: 03/08/22 20:22 Dose: 3 mg Metoclopramide HCl (Metoclopramide 10 Mg/2 Ml Vial) 10 mg IV Q6 [facility] Last Admin: 03/09/22 05:37 Dose: 10 mg Nystatin (Nystatin Crm 1 Dose Tube) 1 dose TOPICAL TID [facility] Last Admin: 03/09/22 09:31 Dose: Not Given Octreotide Acetate (Octreotide Acetate 100 Mcg/Ml Vial) 100 mcg SQ TID [facility] Last Admin: 03/09/22 10:06 Dose: 100 mcg Oxycodone HCl (Oxycodone Hcl 5 Mg Tablet) 5 mg PO Q4-6HP PRN; Protocol PRN Reason: Per Pain Protocol Last Admin: 03/07/22 17:26 Dose: 5 mg Promethazine HCl (Promethazine 25 Mg/Ml Vial) 12.5 mg IV Q4HP PRN; Protocol PRN Reason: Nausea/Vomiting Last Admin: 03/03/22 19:30 Dose: 12.5 mg Scopolamine (Scopolamine 1 Patch Patch) 1 patch TOPICAL Q72H [facility] Last Admin: 03/06/22 16:53 Dose: Not Given Sodium Chloride (0.9 % Sodium Chloride 10 Ml Syringe) 10 ml IV Q12 [facility] Last Admin: 03/09/22 10:06 Dose: 10 ml Sodium Chloride (0.9 % Sodium Chloride 10 Ml Syringe) 10 ml IV UD PRN PRN Reason: FLUSH Last Admin: 02/26/22 05:18 Dose: 10 ml Tamsulosin HCl (Tamsulosin 0.4 Mg Capsule) 0.4 mg PO HS [facility] Last Admin: 03/08/22 20:22 Dose: 0.4 mg Trazodone HCl (Trazodone Hcl 50 Mg Tablet) 50 mg PO HSP PRN PRN Reason: Insomnia A/P Assessment and plan (1) Cholelithiasis with choledocholithiasis: Status: Acute (2) Benign hypertension with CKD (chronic kidney disease) stage III: Status: Chronic Comment: Baseline creatinine clearance 45 to 50 cc/min with a bland urinalysis Blood pressure goal 130 over (3) Stage 1 acute kidney injury: Status: Acute (4) Pneumonia involving left lung: Status: Acute (5) BPH w urinary obs/LUTS: Status: Acute (6) Acute respiratory failure with hypoxia: Status: Acute Narrative A/P Narrative: Assessment and Plans: *Cholelithiasis and choledocholithiasis: s/p lap converted to open cholecystectomy (02/18) -per Surgeon *Microperforations/small bowel leak/hematoma/fistula: s/p Ex-lap (02/23) -Leukocytosis resolved -garcía in wound cx *Post-Op Ileus: *Acute hypoxic respiratory failure, post operative: resolved, likely atelectasis and volume overload *PNA: resolved *Essential HTN: improved with med adjustment *VINCENT on CKD III: improved *Anemia: *Metabolic acidosis: improved *Hypokalemia: improved *Obesity: BMI 40 *UR: P: -abx per surgery, wound vac -fluconazole -Monitor volume status while receiving TPN -monitor renal fxn -Electrolyte replacement as needed -Acapella/Incentive spirometry, prn Supplemental oxygen -cont Amlodipine, coreg -flomax started -pt/ot -ppx: heparin / ppi Time Spent With Patient Time: Total time spent is greater than 50% in coordination of care (as documented) at patient's floor/unit and/or counseling patient: QUALITY VTE Deep Vein Thrombosis/Pulmonary Embolism Present on Admission: No
--- NOTE | 2022-03-09 12:44 | XRay Report ---
CLINICAL INFORMATION: PICC line placement COMPARISON: None. TECHNIQUE: Portable FINDINGS: Left PICC line tip overlies the SVC right atrial junction. The heart is mildly enlarged but unchanged. Mediastinum and pulmonary vessels are normal. Minor left basilar atelectasis noted. Small left pleural effusion noted. IMPRESSION: PICC line in satisfactory position. Minor left basilar atelectasis and tiny left pleural effusion Interpreted and Authenticated by: Alonzo Canchola 03/09/22
[2022-03-09] MEDS: oxyCODONE HCL 5 MG TABLET PO PRN (15:55)
[2022-03-09] MEDS: hydrOXYzine 25 MG TABLET PO PRN (15:57)
[2022-03-09] MEDS: HYDROmorphone 1 MG/ML SYRINGE IV PRN (15:58)
[2022-03-09] MEDS: POTASSIUM CHLORIDE IV SCH (15:59)
[2022-03-09] MEDS: CALCIUM GLUCONATE IV SCH (15:59)
[2022-03-09] MEDS: [UNRECOGNIZED DRUG - OTHER] IV SCH (15:59)
[2022-03-09] MEDS: POTASSIUM PHOSPHATE IV SCH (15:59)
[2022-03-09] MEDS: MVI IV SCH (15:59)
[2022-03-09] MEDS: SCOPOLAMINE 1 PATCH PATCH TOPICAL SCH (16:21)
[2022-03-09] MEDS: MELATONIN 3 MG TABLET PO PRN (21:49)
[2022-03-09] MEDS: TAMSULOSIN 0.4 MG CAPSULE PO SCH (21:49)
[2022-03-10] MEDS: METOCLOPRAMIDE 10 MG/2 ML VIAL IV SCH ×5 (00:22→23:22)
[2022-03-10] MEDS: INSULIN LISPRO 1 UNIT/0.01 ML UNIT SQ SCH ×5 (00:22→23:22)
[2022-03-10] MEDS: ACETAMINOPHEN 1,000 MG/100 ML BAG IV SCH ×4 (00:27→18:53)
[2022-03-10] MEDS: SUCRETS LOZENGE PO PRN ×4 (00:33→22:16)
[2022-03-10] MEDS: MEROPENEM 2 GM in 0.9 % SODIUM CHLORIDE 100 ML IV SCH ×3 (05:41→22:03)
[2022-03-10] MEDS: DEXTROSE 10 % IN WATER 1,000 ML IV SCH (06:05)
[2022-03-10 07:00] LABS: Basophils # (Auto) 0.12 K/mcL (0.00-0.30); Basophils % (Auto) 1.7 % (0.0-2.0); Eosinophils # (Auto) 0.14 K/mcL (0.00-0.70); Hematocrit 35.4 % (40.1-51.0); Hemoglobin 11.2 g/dL (13.7-17.5); Lymphocytes % (Auto) 29.5 % (15.5-49.0); Mean Cell Volume 88.5 fL (80.0-100.0); Mean Corpuscular HGB Conc 31.6 g/dL (31.0-36.0); Mean Platelet Volume 9.5 fL (8.8-12.5); Monocytes % (Auto) 12.7 % (1.0-12.0); Neutrophils % (Auto) 53.1 % (38.0-78.0); Platelet Count 331 K/mcL (140-440); WBC 7.1 K/mcL (4.5-11.0)
[2022-03-10] MEDS: CARVEDILOL 12.5 MG TABLET PO SCH ×2 (07:39→16:52)
[2022-03-10 08:29] LABS: ALT/SGPT 30 U/L (<40); AST/SGOT 34 U/L (<40); Albumin 2.9 gm/dL (3.2-5.2); Albumin/Globulin Ratio 0.6 (1.0-2.3); Alkaline Phosphatase 187 U/L (39-117); Bilirubin,Direct 0.2 mg/dL (<0.3); Bilirubin,Total 0.6 mg/dL (0.1-1.0); Blood Urea Nitrogen 28 mg/dL (8-23); Calcium 9.3 mg/dL (8.6-10.4); Carbon Dioxide 23 mmol/L (22-30); Chloride 101 mmol/L (96-108); Globulin 4.7 gm/dL (2.2-3.7); Glomerular Filtration Rate 59; Glucose 162 mg/dL (70-105); Lactate Dehydrogenase 282 U/L (135-225); Phosphorous 3.1 mg/dL (2.5-4.5); Triglycerides 325 mg/dL (<150); Uric Acid 4.3 mg/dL (2.5-8.0)
[2022-03-10] MEDS: amLODIPine 5 MG TABLET PO SCH (09:47)
[2022-03-10] MEDS: HEPARIN 5,000 UNIT/ML VIAL SQ SCH ×2 (09:47→22:01)
[2022-03-10] MEDS: 0.9 % SODIUM CHLORIDE 10 ML SYRINGE IV SCH ×2 (09:48→21:56)
[2022-03-10] MEDS: NYSTATIN CRM 1 DOSE TUBE TOPICAL SCH ×3 (09:48→21:56)
[2022-03-10] MEDS: OCTREOTIDE ACETATE 100 MCG/ML VIAL SQ SCH ×3 (09:48→22:00)
[2022-03-10] MEDS: FLUCONAZOLE 400 MG/200 ML BAG IV SCH (09:48)
[2022-03-10] MEDS: 0.9 % SODIUM CHLORIDE 10 ML SYRINGE IV PRN ×4 (11:19→16:57)
--- NOTE | 2022-03-10 13:26 | General Surgery Progress Note ---
SUBJECTIVE Subjective Patient information: Note initiated : 03/10/22 at 1:20 pm Service Date, if different from initiated Date: [] Patient: Jonas Noble 72 y/o M admitted on 02/18/22 for bowel obstruction- Cholelithiasis. Chief Complaint: [] Principal diagnosis: Small bowel microperforation; enterocutaneous fistula Interval history: Patient continues to improve. He states that he feels much better. Output through his fistula is significantly improved and output is less than 100 cc for the past 24 hours. His wound is nearly 100% granulating and there is no significant feculent output over the past 2 days. TREVER drains have less than 10 cc per 24 hours. Constitutional Vitals: Vital Signs Temp Pulse Resp BP Pulse Ox O2 Del Method O2 Flow Rate 99.0 F 75 22 129/69 99 0 03/10/22 12:00 03/10/22 12:00 03/10/22 12:00 03/10/22 12:00 03/10/22 12:00 03/10/22 12:00 03/08/22 00:00 Period Temp Pulse Resp BP Sys/Maza Pulse Ox O2 Del Method O2 Flow Rate Last 24 Hr 97.1 F-99.1 F 71-87 19-24 101-140/69-89 97-100 Room Air-Room Air Intake and Output 03/10/22 03/10/22 03/10/22 03:59 11:59 19:59 Intake Total 400 400 Output Total 357 825 Balance 43 -425 Weight 278 lb 1.6 oz Patient Weight 03/11/22 03:59 Weight 278 lb 1.6 oz Intake & Output: Intake & Output 03/10/22 03/10/22 03/10/22 03:59 11:59 19:59 Intake Total 400 400 Output Total 357 825 Balance 43 -425 Weight 278 lb 1.6 oz Intake: IV 300 400 Calcium Gluconate 10 Meq 0 Potassium Chloride 40 Meq Potassium Phosphate 20 Meq Infuvite Adult 10 ml Magnesium Sulfate 4.06 Meq Sodium Acetate 40 Meq Sodium Phosphate 40 Mmol In Clinimix 5%-20% Solution 2,000 ml @ 85 mls/hr IV DAILY@1500 [facility] Rx#:[id number] Dextrose 10%-Water IV Solution 0 1,000 ml @ 85 mls/hr IV . [id number] [facility] Rx#:[id number] Merrem 2 gm In Sodium Chloride 100 100 0.9% 100 ml @ 100 mls/hr IV Q8H [facility] Rx#:[id number] Oral 100 Output: Drainage 7 Left Abdomen TREVER Drain 5 Medial Abdomen TREVER Drain 2 Void Amount 350 825 Other: Meal Breakfast Percent of Meal Consumed 50% Feeding Ability Assist with Tray Set Up Urine Appearance Clear Urine Color Light Paige Head Head exam: Present atraumatic, normal inspection and normocephalic Eye Eye exam: Present PERRL Pupils: Present normal accommodation ENT ENT exam: Present normal external ear exam and normal oropharynx Neck Neck exam: Present full ROM, normal inspection and tenderness Respiratory Respiratory exam: Present normal respiratory exam and CTAB Cardiovascular Cardiovascular exam: Present normal rate and rhythm, RRR, +S1 and +S2; Absent JVD GI/Abdominal GI/Abdominal exam: Present normal bowel sounds and soft; Absent distended Extremities Exam Extremities exam: Present normal inspection and neurovascular intact Neurological Exam Neurological exam: Present alert, oriented X3 and reflexes normal; Absent motor sensory deficit Psychiatric Psychiatric exam: Present agitated, normal affect and normal mood Skin Skin exam: Present normal color; Absent pallor, rash or urticaria A/P Assessment and plan (1) Intestinal fistula: Status: Acute (2) Small bowel perforation: Status: Acute (3) Postoperative ileus: Status: Acute (4) Stage 1 acute kidney injury: Status: Acute (5) Cholelithiasis with choledocholithiasis: Status: Acute Plan Continue TPN at 85 cc/h Continue wound VAC and change every other day Full liquid diet with additional Enlive and Magic cups per meal Encouraged to have swing bed status for continued TPN and wound care and antibiotics CT of abdomen and pelvis with IV contrast: 03/11/2022 Sepsis Sepsis Identified: No Time Spent With Patient Time: Total time spent is greater than 50% in coordination of care (as documented) at patient's floor/unit and/or counseling patient:
[2022-03-10] MEDS: MVI IV SCH (15:13)
[2022-03-10] MEDS: [UNRECOGNIZED DRUG - OTHER] IV SCH (15:13)
[2022-03-10] MEDS: CALCIUM GLUCONATE IV SCH (15:13)
[2022-03-10] MEDS: POTASSIUM CHLORIDE IV SCH (15:13)
[2022-03-10] MEDS: POTASSIUM PHOSPHATE IV SCH (15:13)
[2022-03-10] MEDS: TAMSULOSIN 0.4 MG CAPSULE PO SCH (21:59)
[2022-03-10] MEDS: hydrOXYzine 25 MG TABLET PO PRN (22:01)
[2022-03-10] MEDS: MELATONIN 3 MG TABLET PO PRN (22:02)
[2022-03-11] MEDS: ACETAMINOPHEN 1,000 MG/100 ML BAG IV SCH ×4 (00:58→19:40)
[2022-03-11] MEDS: SUCRETS LOZENGE PO PRN ×4 (01:22→19:40)
[2022-03-11] MEDS: MEROPENEM 2 GM in 0.9 % SODIUM CHLORIDE 100 ML IV SCH ×3 (05:06→21:49)
[2022-03-11] MEDS: METOCLOPRAMIDE 10 MG/2 ML VIAL IV SCH ×3 (05:06→17:56)
[2022-03-11] MEDS: INSULIN LISPRO 1 UNIT/0.01 ML UNIT SQ SCH ×3 (05:07→17:55)
[2022-03-11 06:51] LABS: Basophils # (Auto) 0.11 K/mcL (0.00-0.30); Basophils % (Auto) 1.5 % (0.0-2.0); Eosinophils # (Auto) 0.17 K/mcL (0.00-0.70); Eosinophils % (Auto) 2.4 % (0.0-7.0); Hematocrit 30.2 % (40.1-51.0); Hemoglobin 9.5 g/dL (13.7-17.5); Lymphocytes # (Auto) 2.44 K/mcL (1.50-4.80); Lymphocytes % (Auto) 34.2 % (15.5-49.0); Mean Cell Volume 88.3 fL (80.0-100.0); Mean Corpuscular HGB Conc 31.5 g/dL (31.0-36.0); Monocytes # (Auto) 1.03 K/mcL (0.10-0.90); Monocytes % (Auto) 14.4 % (1.0-12.0); Neutrophils % (Auto) 46.5 % (38.0-78.0); Platelet Count 269 K/mcL (140-440); RBC 3.42 M/mcL (4.63-6.08); Red Cell Distribution Width 13.1 % (11.5-14.5); WBC 7.1 K/mcL (4.5-11.0)
[2022-03-11 07:29] LABS: ALT/SGPT 22 U/L (<40); AST/SGOT 25 U/L (<40); Albumin 2.8 gm/dL (3.2-5.2); Albumin/Globulin Ratio 0.7 (1.0-2.3); Alkaline Phosphatase 164 U/L (39-117); Bilirubin,Direct < 0.2 mg/dL (0-0.3); Bilirubin,Total 0.5 mg/dL (0.1-1.0); Blood Urea Nitrogen 26 mg/dL (8-23); Calcium 8.5 mg/dL (8.6-10.4); Carbon Dioxide 26 mmol/L (22-30); Chloride 104 mmol/L (96-108); Globulin 3.8 gm/dL (2.2-3.7); Glomerular Filtration Rate 84; Glucose 176 mg/dL (70-105); Lactate Dehydrogenase 205 U/L (135-225); Triglycerides 284 mg/dL (<150); Uric Acid 3.5 mg/dL (2.5-8.0)
[2022-03-11] MEDS: CARVEDILOL 12.5 MG TABLET PO SCH ×2 (07:47→17:55)
[2022-03-11] MEDS ORDERED: IOPAMIDOL 100 ML BOTTLE IV ONE (09:00)
[2022-03-11] MEDS: amLODIPine 5 MG TABLET PO SCH (09:06)
[2022-03-11] MEDS: HEPARIN 5,000 UNIT/ML VIAL SQ SCH ×2 (09:06→21:49)
[2022-03-11] MEDS: FLUCONAZOLE 400 MG/200 ML BAG IV SCH (09:07)
[2022-03-11] MEDS: NYSTATIN CRM 1 DOSE TUBE TOPICAL SCH ×3 (09:07→21:50)
[2022-03-11] MEDS: 0.9 % SODIUM CHLORIDE 10 ML SYRINGE IV SCH ×2 (09:08→21:51)
[2022-03-11] MEDS: OCTREOTIDE ACETATE 100 MCG/ML VIAL SQ SCH ×3 (09:14→21:50)
[2022-03-11] MEDS: HYDROmorphone 1 MG/ML SYRINGE IV PRN (10:27)
--- NOTE | 2022-03-11 10:52 | General Surgery Progress Note ---
SUBJECTIVE Subjective Patient information: Note initiated : 03/11/22 at 10:46 am Service Date, if different from initiated Date: [] Patient: Jonas Noble 72 y/o M admitted on 02/18/22 for bowel obstruction- Cholelithiasis. Chief Complaint: [] Principal diagnosis: Small bowel microperforation; enterocutaneous fistula Interval history: Patient continues to improve. He remains afebrile. He has minimal discomfort in his abdominal wall. Output through the wound VAC has been less than 200 cc over 4 days and the drains have negligible output. White blood count 7.1, hemoglobin 9.5, hematocrit 30.2, potassium 4.2, BUN 26, creatinine 0.9. Constitutional Vitals: Vital Signs Temp Pulse Resp BP Pulse Ox O2 Del Method O2 Flow Rate 97.9 F 78 24 H 138/77 97 0 03/11/22 07:46 03/11/22 07:46 03/11/22 07:46 03/11/22 07:46 03/11/22 07:46 03/11/22 07:46 03/08/22 00:00 Period Temp Pulse Resp BP Sys/Maza Pulse Ox O2 Del Method O2 Flow Rate Last 24 Hr 97.7 F-99.0 F 69-78 18-24 124-142/67-77 97-99 Room Air-Room Air Intake and Output 03/10/22 03/11/22 03/11/22 19:59 03:59 11:59 Intake Total 2575 200 400 Output Total 380.5 501 528 Balance 2194.5 -301 -128 Weight 264 lb 1.6 oz Intake & Output: Intake & Output 03/10/22 03/11/22 03/11/22 19:59 03:59 11:59 Intake Total 2575 200 400 Output Total 380.5 501 528 Balance 2194.5 -301 -128 Weight 264 lb 1.6 oz Intake: Nourishment/Supplement quantity 200 (ml) IV 2275 200 200 Calcium Gluconate 5 Meq 1975 Potassium Chloride 40 Meq Potassium Phosphate 20 Meq Infuvite Adult 10 ml Magnesium Sulfate 4.06 Meq Sodium Acetate 40 Meq Sodium Phosphate 40 Mmol In Clinimix 5%-20% Solution 2,000 ml @ 85 mls/hr IV DAILY@1500 [facility] Rx#:[id number] Merrem 2 gm In Sodium Chloride 100 100 100 0.9% 100 ml @ 100 mls/hr IV Q8H [facility] Rx#:[id number] Oral 100 200 Output: Drainage 5.5 3 Left Abdomen TREVER Drain 3.5 1 Medial Abdomen TREVER Drain 2 2 Void Amount 375 500 525 Urine/Stool Mix 1 Other: Meal Nourishment/Supplement Nourishment/Supplement name Ensure Urine Appearance Clear Clear Urine Color Light Paige Yellow Dark Yellow Urine Odor Normal Stool Size Small Small Small Stool Color Brown Brown Brown Yellow Stool Consistency Liquid Loose Liquid # Voids 1 # Bowel Movements 1 1 Neck Neck exam: Present full ROM and normal inspection Respiratory Respiratory exam: Present normal respiratory exam and CTAB Cardiovascular Cardiovascular exam: Present normal rate and rhythm, RRR, +S1 and +S2; Absent JVD GI/Abdominal GI/Abdominal exam: Present normal bowel sounds and soft Additional comments: The incision continues to granulate and. There was an area on the right side which was slightly spongy. CT performed this morning showed air this region. The wound was probed from 2 positions with a small amount of bloody purulent drainage removed. The fascial midline appears to be intact. Extremities Exam Extremities exam: Present full ROM and neurovascular intact Neurological Exam Neurological exam: Present oriented X3; Absent motor sensory deficit Psychiatric Psychiatric exam: Present normal affect and normal mood A/P Assessment and plan (1) Intestinal fistula: Status: Acute (2) Small bowel perforation: Status: Acute (3) Stage 1 acute kidney injury: Status: Acute (4) Cholelithiasis with choledocholithiasis: Status: Acute Plan Continue wound VAC care with IV antibiotics and TPN Full liquid diet with supplemental feedings for maintenance calorie intake Sepsis Sepsis Identified: No Time Spent With Patient Time: Total time spent is greater than 50% in coordination of care (as documented) at patient's floor/unit and/or counseling patient:
--- NOTE | 2022-03-11 14:09 | Internal Med Progress Note ---
SUBJECTIVE Subjective Patient information: Note initiated : 03/11/22 at 2:07 pm Service Date, if different from initiated Date: [] Patient: Jonas Noble 72 y/o M admitted on 02/18/22 for bowel obstruction- Cholelithiasis. Chief Complaint: [] Principal diagnosis: Small bowel microperforation; enterocutaneous fistula Interval history: 03/10 No significant events overnight, the patient is having bowel movements. Edelmira nues on TPN and clear liquid diet. Patient is on meropenem and on fluconazole per general surgery. Tentative plan is for [facility] pending CT abdomen and pelvis results. 03/11 Vital stable overnight, morning labs showed a drop in hemoglobin from 11.2-9.5, will recheck in the afternoon. CT abdomen pelvis report pending. Physical exam Head: Atraumatic, normal inspection. Eyes: normal appearance, no scleral icterus. Neck: full ROM Respiratory: no respiratory distress. Cardiovascular: normal rate and rhythm, S1, S2. GI/Abdominal: Distended abdomen with anterior surgical incision covered with wound VAC, 2 abdominal drains present, soft, nontender, no guarding. Extremities: full range of motion, nontender. Neurological: CN II-XII intact, intact motor, intact sensation. Psychiatric: normal mood. Skin: warm, normal color Constitutional Vitals: Vital Signs Temp Pulse Resp BP Pulse Ox O2 Del Method O2 Flow Rate 98.1 F 78 24 H 131/68 98 0 03/11/22 11:52 03/11/22 11:52 03/11/22 11:52 03/11/22 11:52 03/11/22 11:52 03/11/22 11:52 03/08/22 00:00 Period Temp Pulse Resp BP Sys/Maza Pulse Ox O2 Del Method O2 Flow Rate Last 24 Hr 97.7 F-98.6 F 69-78 18-24 124-142/67-77 97-99 Room Air-Room Air Intake and Output 03/11/22 03/11/22 03/11/22 03:59 11:59 19:59 Intake Total 200 750 Output Total 501 528 500 Balance -301 222 -500 Weight 119.794 kg Intake & Output: Intake & Output 03/11/22 03/11/22 03/11/22 03:59 11:59 19:59 Intake Total 200 750 Output Total 501 528 500 Balance -301 222 -500 Weight 119.794 kg Intake: IV 200 400 Merrem 2 gm In Sodium Chloride 100 100 0.9% 100 ml @ 100 mls/hr IV Q8H [facility] Rx#:[id number] Oral 350 Output: Drainage 3 Left Abdomen TREVER Drain 1 Medial Abdomen TREVER Drain 2 Void Amount 500 525 500 Urine/Stool Mix 1 Other: Meal Breakfast Percent of Meal Consumed 50% Feeding Ability Independent Urine Appearance Clear Urine Color Yellow Dark Yellow Yellow Urine Odor Normal Stool Size Small Small Stool Color Brown Brown Yellow Stool Consistency Loose Liquid # Voids 1 # Bowel Movements 1 OBJ DATA Labs CBC & Chem 7: 03/11/22 05:13 03/11/22 05:13 Labs: Abnormal Lab Results 03/11/22 03/11/22 03/10/22 05:13 05:13 06:04 RBC 3.42 L Hgb 9.5 L Hct 30.2 L Immature Gran % (Auto) 1.0 H [place] % (Auto) 14.4 H Baso % (Auto) [place] # (Auto) 1.03 H Immature Gran # 0.07 H Sodium BUN 26 H 28 H Glucose 176 H 162 H Calcium 8.5 L GGT 72 H 84 H Alkaline Phosphatase 164 H 187 H Lactate Dehydrogenase 282 H Albumin 2.8 L 2.9 L Globulin 3.8 H 4.7 H Albumin/Globulin Ratio 0.7 L 0.6 L Triglycerides 284 H 325 H 03/10/22 03/09/22 03/09/22 06:04 06:06 06:06 RBC 4.00 L 3.67 L Hgb 11.2 L 10.3 L Hct 35.4 L 32.8 L Immature Gran % (Auto) 1.0 H 1.4 H [place] % (Auto) 12.7 H 13.0 H Baso % (Auto) 2.4 H [place] # (Auto) 0.93 H Immature Gran # 0.07 H 0.10 H Sodium 132 L BUN 29 H Glucose 137 H Calcium GGT 83 H Alkaline Phosphatase 171 H Lactate Dehydrogenase Albumin 2.7 L Globulin 4.4 H Albumin/Globulin Ratio 0.6 L Triglycerides 385 H Meds: Medications Albuterol/Ipratropium (Ipratropium/Albuterol 3 Ml Ampul.Neb) 3 ml NEB Q4HP PRN PRN Reason: Shortness Of Breath Last Admin: 03/05/22 19:58 Dose: 3 ml Alprazolam (Alprazolam 0.5 Mg Tablet) 0.5 mg PO TIDP PRN PRN Reason: Anxiety Last Admin: 03/07/22 15:48 Dose: 0.5 mg Amlodipine Besylate (Amlodipine 5 Mg Tablet) 5 mg PO DAILY [facility] Last Admin: 03/11/22 09:06 Dose: 5 mg Carvedilol (Carvedilol 12.5 Mg Tablet) 25 mg PO BIDCC [facility] Last Admin: 03/11/22 07:47 Dose: 25 mg Dextrose (Dextrose 50% 50 Ml Syringe) 25 - 50 ml IV UD PRN PRN Reason: Hypoglycemia Diagnostic Test (Pha) (Accu-Chek 1 Each Strip) 1 each FS Q6 [facility] Last Admin: 03/11/22 11:33 Dose: 1 each Heparin Sodium (Porcine) (Heparin 5,000 Unit/Ml Vial) 5,000 unit SQ Q12 [facility] Last Admin: 03/11/22 09:06 Dose: 5,000 unit Heparin Sodium (Porcine) (Heparin Flush 10 Units/Ml 5 Ml Syringe) 2 ml IV Q12 [facility] Last Admin: 03/11/22 09:07 Dose: 2 ml Hydralazine HCl (Hydralazine 20 Mg/Ml Vial) 20 mg IV Q4HP PRN PRN Reason: Hypertension Last Admin: 02/27/22 21:08 Dose: 20 mg Hydromorphone HCl (Hydromorphone 1 Mg/Ml Syringe) 0 mg IV Q2HP PRN; Protocol PRN Reason: Per Pain Protocol Last Admin: 03/11/22 10:27 Dose: 1 mg Hydroxyzine HCl (Hydroxyzine 25 Mg Tablet) 25 mg PO TIDP PRN PRN Reason: Allergic Symptoms Last Admin: 03/10/22 22:01 Dose: 25 mg Acetaminophen (Ofirmev) 1,000 mg in 100 mls @ 200 mls/hr IV Q6H [facility]; Protocol Last Admin: 03/11/22 12:51 Dose: 200 mls/hr Meropenem 2 gm/ Sodium (Chloride) 100 mls @ 100 mls/hr IV Q8H [facility]; Protocol Last Infusion: 03/11/22 06:22 Dose: Infused Fluconazole (Diflucan) 400 mg in 200 mls @ 100 mls/hr IV Q24H [facility] Last Infusion: 03/11/22 11:10 Dose: Infused Calcium Gluconate 5 meq/Potassium Chloride 40 meq/Potassium Phosphate 20 meq/Multivitamins/Minerals 10 ml/Magnesium Sulfate 4.06 meq/Sodium Acetate 40 meq/ Sodium Phosphate 40 mmol/ Amino Acids 2,079.6314 mls @ 85 mls/hr IV DAILY@1500 [facility] Stop: 03/11/22 14:59 Last Admin: 03/10/22 15:13 Dose: 85 mls/hr Calcium Gluconate 5 meq/Potassium Chloride 40 meq/Potassium Phosphate 20 meq/Multivitamins/Minerals 10 ml/Magnesium Sulfate 4.06 meq/Sodium Acetate 20 meq/ Sodium Phosphate 40 mmol/ Amino Acids 2,069.6314 mls @ 85 mls/hr IV DAILY@1500 [facility] Insulin Human Lispro (Insulin Lispro 1 Unit/0.01 Ml Unit) 0 unit SQ Q6 [facility]; Protocol Last Admin: 03/11/22 11:39 Dose: 2 units Labetalol HCl (Labetalol 5 Mg/Ml Ml) 10 - 20 mg IV Q2HP PRN PRN Reason: Hypertension Last Admin: 02/27/22 23:42 Dose: 20 mg Melatonin (Melatonin 3 Mg Tablet) 3 mg PO HSP PRN PRN Reason: Sleep Last Admin: 03/10/22 22:02 Dose: 3 mg Metoclopramide HCl (Metoclopramide 10 Mg/2 Ml Vial) 10 mg IV Q6 [facility] Last Admin: 03/11/22 12:51 Dose: 10 mg Nystatin (Nystatin Crm 1 Dose Tube) 1 dose TOPICAL TID [facility] Last Admin: 03/11/22 09:07 Dose: 1 dose Octreotide Acetate (Octreotide Acetate 100 Mcg/Ml Vial) 100 mcg SQ TID [facility] Last Admin: 03/11/22 09:14 Dose: 100 mcg Oxycodone HCl (Oxycodone Hcl 5 Mg Tablet) 5 mg PO Q4-6HP PRN; Protocol PRN Reason: Per Pain Protocol Last Admin: 03/09/22 15:55 Dose: 5 mg Promethazine HCl (Promethazine 25 Mg/Ml Vial) 12.5 mg IV Q4HP PRN; Protocol PRN Reason: Nausea/Vomiting Last Admin: 03/03/22 19:30 Dose: 12.5 mg Scopolamine (Scopolamine 1 Patch Patch) 1 patch TOPICAL Q72H [facility] Last Admin: 03/09/22 16:21 Dose: Not Given Sodium Chloride (0.9 % Sodium Chloride 10 Ml Syringe) 10 ml IV Q12 [facility] Last Admin: 03/11/22 09:08 Dose: 10 ml Sodium Chloride (0.9 % Sodium Chloride 10 Ml Syringe) 10 ml IV UD PRN PRN Reason: FLUSH Last Admin: 03/10/22 16:57 Dose: 10 ml Tamsulosin HCl (Tamsulosin 0.4 Mg Capsule) 0.4 mg PO HS [facility] Last Admin: 03/10/22 21:59 Dose: 0.4 mg Trazodone HCl (Trazodone Hcl 50 Mg Tablet) 50 mg PO HSP PRN PRN Reason: Insomnia A/P Assessment and plan (1) Cholelithiasis with choledocholithiasis: Status: Acute (2) Benign hypertension with CKD (chronic kidney disease) stage III: Status: Chronic Comment: Baseline creatinine clearance 45 to 50 cc/min with a bland urinalysis Blood pressure goal 130 over (3) Stage 1 acute kidney injury: Status: Acute (4) Pneumonia involving left lung: Status: Acute (5) BPH w urinary obs/LUTS: Status: Acute (6) Acute respiratory failure with hypoxia: Status: Acute Narrative A/P Narrative: Assessment and Plans: *Cholelithiasis and choledocholithiasis: s/p lap converted to open cholecystectomy (02/18) -per Surgeon *Microperforations/small bowel leak/hematoma/fistula: s/p Ex-lap (02/23) -Leukocytosis resolved -garcía in wound cx *Post-Op Ileus: *Acute hypoxic respiratory failure, post operative: resolved, likely atelectasis and volume overload *PNA: resolved *Essential HTN: improved with med adjustment *VINCENT on CKD III: improved *Anemia: *Metabolic acidosis: improved *Hypokalemia: improved *Obesity: BMI 40 *UR: P: -CTV abdomen pelvis today. -abx per surgery, wound vac -fluconazole -Monitor volume status while receiving TPN -monitor renal fxn -Electrolyte replacement as needed -Acapella/Incentive spirometry, prn Supplemental oxygen -cont Amlodipine, coreg -flomax started -pt/ot -ppx: heparin / ppi Time Spent With Patient Time: Total time spent is greater than 50% in coordination of care (as documented) at patient's floor/unit and/or counseling patient: QUALITY VTE Deep Vein Thrombosis/Pulmonary Embolism Present on Admission: No
[2022-03-11] MEDS: ALPRAZolam 0.5 MG TABLET PO PRN (14:35)
[2022-03-11] MEDS: hydrOXYzine 25 MG TABLET PO PRN ×2 (15:10→21:47)
[2022-03-11] MEDS: CALCIUM GLUCONATE IV SCH (15:37)
[2022-03-11] MEDS: [UNRECOGNIZED DRUG - OTHER] IV SCH (15:37)
[2022-03-11] MEDS: POTASSIUM CHLORIDE IV SCH (15:37)
[2022-03-11] MEDS: POTASSIUM PHOSPHATE IV SCH (15:37)
[2022-03-11] MEDS: MVI IV SCH (15:37)
[2022-03-11] MEDS ORDERED: FAT EMULSION 20% 250 ML in PREMIX 1 BAG IV SCH (16:00)
[2022-03-11] MEDS: TAMSULOSIN 0.4 MG CAPSULE PO SCH (21:47)
[2022-03-11] MEDS: MELATONIN 3 MG TABLET PO PRN (21:48)
[2022-03-12] MEDS: SUCRETS LOZENGE PO PRN ×4 (00:12→21:05)
[2022-03-12] MEDS: INSULIN LISPRO 1 UNIT/0.01 ML UNIT SQ SCH ×4 (00:12→17:30)
[2022-03-12] MEDS: ACETAMINOPHEN 1,000 MG/100 ML BAG IV SCH ×4 (00:12→19:14)
[2022-03-12] MEDS: METOCLOPRAMIDE 10 MG/2 ML VIAL IV SCH ×4 (00:12→17:26)
[2022-03-12] MEDS: MEROPENEM 2 GM in 0.9 % SODIUM CHLORIDE 100 ML IV SCH ×3 (05:16→21:44)
--- NOTE | 2022-03-12 06:26 | Cat Scan Report ---
CLINICAL INFORMATION: Follow-up possible enteric fistula and peritonitis COMPARISON: Abdomen and pelvic CT 02/15/2022 TECHNIQUE: Enteric contrast was utilized. 80 cc of Isovue-370 were injected intravenously, and 50 seconds later, 0.625 mm helical slices were obtained from the mid heart through the subtrochanteric regions of the femurs. . Following reconstruction, 2.5 mm sagittal, coronal and axial reformatted images were processed and reviewed at bone, lung and soft tissue windows. Five minutes later, 0.625 mm helical slices were obtained from the mid heart through the kidneys and viewed at soft tissue windows.The exam was performed using radiation dose optimization techniques including, but not limited to, automated exposure control, adjustment of the mA and/or kV according to patient size and use of iterative reconstruction technique. FINDINGS: Lung bases show subsegmental atelectasis posterior left lower lobe and small left pleural effusion which are new. The visualized heart is mildly enlarged with aortic valve calcification Abdominal images show cholecystectomy change with a 4 cm fluid collection in the lana hepatis. There are two stones in the common bile duct: 7 mm in the mid CBD and 8 mm in the ampulla. Interestingly, this does not result in common bile duct dilatation. The common bile duct, superior to this stone, is only 7 mm. Both kidneys, adrenal glands, spleen, pancreas and aorta, including aortic branches, are normal in size, configuration and attenuation without focal lesion. There is no free air, free fluid or adenopathy. Pelvic images show normal urinary bladder, prostate and seminal vesicles. A 5 cm encapsulated fluid collection has developed in the anterior central mesenteric cavity on image 78, a 3.1 cm encapsulated fluid collection is now seen in the anterior mesenteric cavity in the left mid abdomen with an adjacent 5 cm capsular fluid collection more medially. These could represent postoperative seromas hematoma or developing abscesses. A 6 cm thick walled fluid collection with air in Camper's fascia in the right periumbilical region is new and could potentially represent abscess. Two surgical drains enter from the upper quadrant and descend in the anterior mesenteric cavity to the false pelvis. The stomach, small and large bowel are relatively decompressed show no gross abnormality. Bone windows show no osseous abnormality IMPRESSION: 1. Two common bile duct stones: 7 mm in the mid CBD and 8 mm and the ampullary region. There is no biliary dilatation superior to the duct which may increase the probability of a bile leak. 5 cm fluid collection and lana hepatis presumably post surgical seroma however a bile leak not excluded. Patient may require ERCP with stone extraction and contrast injection of the duct to ensure duct integrity. 2. 5 cm encapsulated fluid collection anterior central mesenteric cavity 3 cm capsular fluid collection in the left mid mesenteric cavity with an adjacent 5 cm fluid collection inferiorly. These are most likely seromas. Developing abscess is not excluded 3. 5.6 cm thick walled fluid collection with air in Camper's fascia which may represent an abscess Interpreted and Authenticated by: Alonzo Canchola 03/12/22
[2022-03-12 06:36] LABS: Basophils # (Auto) 0.12 K/mcL (0.00-0.30); Basophils % (Auto) 1.6 % (0.0-2.0); Eosinophils # (Auto) 0.27 K/mcL (0.00-0.70); Eosinophils % (Auto) 3.5 % (0.0-7.0); Hematocrit 31.5 % (40.1-51.0); Hemoglobin 10.2 g/dL (13.7-17.5); Lymphocytes # (Auto) 2.64 K/mcL (1.50-4.80); Lymphocytes % (Auto) 34.5 % (15.5-49.0); Mean Cell Volume 87.5 fL (80.0-100.0); Mean Corpuscular HGB Conc 32.4 g/dL (31.0-36.0); Mean Platelet Volume 9.6 fL (8.8-12.5); Monocytes # (Auto) 0.95 K/mcL (0.10-0.90); Monocytes % (Auto) 12.4 % (1.0-12.0); Neutrophils % (Auto) 46.8 % (38.0-78.0); Platelet Count 295 K/mcL (140-440); Red Cell Distribution Width 13.2 % (11.5-14.5); WBC 7.7 K/mcL (4.5-11.0)
[2022-03-12 06:55] LABS: ALT/SGPT 24 U/L (<40); AST/SGOT 26 U/L (<40); Albumin/Globulin Ratio 0.7 (1.0-2.3); Alkaline Phosphatase 165 U/L (39-117); Bilirubin,Direct < 0.2 mg/dL (0-0.3); Bilirubin,Total 0.5 mg/dL (0.1-1.0); Blood Urea Nitrogen 25 mg/dL (8-23); Calcium 8.8 mg/dL (8.6-10.4); Carbon Dioxide 25 mmol/L (22-30); Chloride 102 mmol/L (96-108); Globulin 4.2 gm/dL (2.2-3.7); Glomerular Filtration Rate 66; Glucose 143 mg/dL (70-105); Lactate Dehydrogenase 206 U/L (135-225); Phosphorous 3.2 mg/dL (2.5-4.5); Triglycerides 272 mg/dL (<150); Uric Acid 3.2 mg/dL (2.5-8.0)
[2022-03-12] MEDS: hydrOXYzine 25 MG TABLET PO PRN ×2 (07:22→21:41)
[2022-03-12] MEDS: CARVEDILOL 12.5 MG TABLET PO SCH ×2 (07:22→17:26)
[2022-03-12] MEDS: OCTREOTIDE ACETATE 100 MCG/ML VIAL SQ SCH ×3 (08:33→21:42)
[2022-03-12] MEDS: HEPARIN 5,000 UNIT/ML VIAL SQ SCH ×2 (08:33→21:42)
[2022-03-12] MEDS: amLODIPine 5 MG TABLET PO SCH (08:33)
[2022-03-12] MEDS: NYSTATIN CRM 1 DOSE TUBE TOPICAL SCH ×3 (08:34→21:43)
[2022-03-12] MEDS: 0.9 % SODIUM CHLORIDE 10 ML SYRINGE IV SCH ×2 (08:34→21:45)
[2022-03-12] MEDS: FLUCONAZOLE 400 MG/200 ML BAG IV SCH (09:39)
--- NOTE | 2022-03-12 12:04 | General Surgery Progress Note ---
SUBJECTIVE Subjective Patient information: Note initiated : 03/12/22 at 11:58 am Service Date, if different from initiated Date: [] Patient: Jonas Noble 72 y/o M admitted on 02/18/22 for bowel obstruction- Cholelithiasis. Chief Complaint: [] Jonas feels well this am, is doing ok on his curent diet and denies much in the way of pain. Has been ambulatory, passing gas and stool Principal diagnosis: Small bowel microperforation; enterocutaneous fistula Constitutional Vitals: Vital Signs Temp Pulse Resp BP Pulse Ox O2 Del Method O2 Flow Rate 98.6 F 81 14 156/77 99 0 03/12/22 07:37 03/12/22 07:37 03/12/22 07:37 03/12/22 07:37 03/12/22 07:37 03/12/22 07:37 03/08/22 00:00 Period Temp Pulse Resp BP Sys/Maza Pulse Ox O2 Del Method O2 Flow Rate Last 24 Hr 97.5 F-99.1 F 75-82 - 110-156/61-85 96-99 Room Air-Room Air Intake and Output 03/11/22 03/12/22 03/12/22 19:59 03:59 11:59 Intake Total 2579.6314 300 450 Output Total 494 844 2669 Balance 14 100 -700 Weight 264 lb 1.6 oz Intake & Output: Intake & Output 03/11/22 03/12/22 03/12/22 19:59 03:59 11:59 Intake Total 2579.6314 300 450 Output Total 412 781 6528 Balance 100 -700 Weight 264 lb 1.6 oz Intake: Nourishment/Supplement quantity 300 (ml) IV 227.6314 300 200 Calcium Gluconate 5 Meq 2078.6314 Potassium Chloride 40 Meq Potassium Phosphate 20 Meq Infuvite Adult 10 ml Magnesium Sulfate 4.06 Meq Sodium Acetate 40 Meq Sodium Phosphate 40 Mmol In Clinimix 5%-20% Solution 2,000 ml @ 85 mls/hr IV DAILY@1500 [facility] Rx#:[id number] Merrem 2 gm In Sodium Chloride 100 100 100 0.9% 100 ml @ 100 mls/hr IV Q8H [facility] Rx#:[id number] Oral 250 Output: Void Amount 878 881 7973 Other: Meal Nourishment/Supplement Breakfast Percent of Meal Consumed 100% Feeding Ability Assist with Tray Set Up Nourishment/Supplement name Magic cup Urine Appearance Clear Clear Urine Color Yellow Yellow Dark Yellow Urine Odor Normal Stool Size Small Small Stool Color Brown Brown Yellow Stool Consistency Loose Liquid # Bowel Movements 1 # of times incontinent of 4 Bowels Exam: Looks non toxic, NAD, pleasantly conversant Respiratory Respiratory exam: Present normal respiratory exam Additional comments: normal effort without distress GI/Abdominal Additional comments: VAC in place, soft and non tender, drains and VAC drainage scant, no distension Extremities Exam Additional comments: well perfused A/P Assessment and plan (1) Intestinal fistula: Assessment and plan: Looks and feels well clinically Continue current mgnt With diarrheal stools will check C Diff Continue to maximize nutrition and increase activity as tolerated, re check labs in AM Status: Acute Time Spent With Patient Time: Total time spent is greater than 50% in coordination of care (as documented) at patient's floor/unit and/or counseling patient:
--- NOTE | 2022-03-12 12:10 | Internal Med Progress Note ---
SUBJECTIVE Subjective Patient information: Note initiated : 03/12/22 at 12:06 pm Service Date, if different from initiated Date: [] Patient: Jonas Noble 72 y/o M admitted on 02/18/22 for bowel obstruction- Cholelithiasis. Chief Complaint: [] Principal diagnosis: Small bowel microperforation; enterocutaneous fistula Interval history: 03/10 No significant events overnight, the patient is having bowel movements. Cont inues on TPN and clear liquid diet. Patient is on meropenem and on fluconazole per general surgery. Tentative plan is for [facility] pending CT abdomen and pelvis results. 03/11 Vital stable overnight, morning labs showed a drop in hemoglobin from 11.2-9.5, will recheck in the afternoon. CT abdomen pelvis report pending. 03/12 No significant events overnight, vital stable. CBC and inpatient panel stable. The CT abdomen pelvis with IV contrast showed 2 common bile duct stones, 5 cm fluid collection near the lana hepatis of uncertain etiology. There is also a 5 cm encapsulated fluid collection anterior to the central mesenteric cavity, 3 cm fluid collection in the left mid mesenteric cavity and adjacent 5 cm fluid collection inferiorly, radiology feels these are possibly seromas. There is also a 5.6 cm thick walled fluid collection with air and camper's fascia possibly representing an abscess. Physical exam Head: Atraumatic, normal inspection. Eyes: normal appearance, no scleral icterus. Neck: full ROM Respiratory: no respiratory distress. Cardiovascular: normal rate and rhythm, S1, S2. GI/Abdominal: Distended abdomen with anterior surgical incision covered with wound VAC, 1 abdominal drains present, soft, nontender, no guarding. Extremities: full range of motion, nontender. Neurological: CN II-XII intact, intact motor, intact sensation. Psychiatric: normal mood. Skin: warm, normal color Constitutional Vitals: Vital Signs Temp Pulse Resp BP Pulse Ox O2 Del Method O2 Flow Rate 98.1 F 78 16 124/62 98 0 03/12/22 11:57 03/12/22 11:57 03/12/22 11:57 03/12/22 11:57 03/12/22 11:57 03/12/22 11:57 03/08/22 00:00 Period Temp Pulse Resp BP Sys/Maza Pulse Ox O2 Del Method O2 Flow Rate Last 24 Hr 97.5 F-99.1 F 75-82 - 110-156/61-85 96-99 Room Air-Room Air Intake and Output 03/12/22 03/12/22 03/12/22 03:59 11:59 19:59 Intake Total 300 450 Output Total 400 1150 Balance -100 -700 Weight 119.794 kg Intake & Output: Intake & Output 03/12/22 03/12/22 03/12/22 03:59 11:59 19:59 Intake Total 300 450 Output Total 400 1150 Balance -100 -700 Weight 119.794 kg Intake: IV 300 200 Merrem 2 gm In Sodium Chloride 100 100 0.9% 100 ml @ 100 mls/hr IV Q8H [facility] Rx#:[id number] Oral 250 Output: Void Amount 400 1150 Other: Meal Breakfast Percent of Meal Consumed 100% Feeding Ability Assist with Tray Set Up Urine Appearance Clear Clear Urine Color Yellow Dark Yellow Urine Odor Normal Stool Size Small Small Stool Color Brown Brown Yellow Stool Consistency Loose Liquid # Bowel Movements 1 # of times incontinent of 4 Bowels OBJ DATA Labs CBC & Chem 7: 03/12/22 05:00 03/12/22 05:00 Labs: Abnormal Lab Results 03/12/22 03/12/22 03/11/22 05:00 05:00 13:01 RBC 3.60 L Hgb 10.2 L 9.4 L Hct 31.5 L Immature Gran % (Auto) 1.2 H [place] % (Auto) 12.4 H [place] # (Auto) 0.95 H Immature Gran # 0.09 H BUN 25 H Glucose 143 H Calcium GGT 71 H Alkaline Phosphatase 165 H Lactate Dehydrogenase Albumin 3.0 L Globulin 4.2 H Albumin/Globulin Ratio 0.7 L Triglycerides 272 H 03/11/22 03/11/22 03/10/22 05:13 05:13 06:04 RBC 3.42 L Hgb 9.5 L Hct 30.2 L Immature Gran % (Auto) 1.0 H [place] % (Auto) 14.4 H [place] # (Auto) 1.03 H Immature Gran # 0.07 H BUN 26 H 28 H Glucose 176 H 162 H Calcium 8.5 L GGT 72 H 84 H Alkaline Phosphatase 164 H 187 H Lactate Dehydrogenase 282 H Albumin 2.8 L 2.9 L Globulin 3.8 H 4.7 H Albumin/Globulin Ratio 0.7 L 0.6 L Triglycerides 284 H 325 H 03/10/22 06:04 RBC 4.00 L Hgb 11.2 L Hct 35.4 L Immature Gran % (Auto) 1.0 H [place] % (Auto) 12.7 H [place] # (Auto) Immature Gran # 0.07 H BUN Glucose Calcium GGT Alkaline Phosphatase Lactate Dehydrogenase Albumin Globulin Albumin/Globulin Ratio Triglycerides Meds: Medications Albuterol/Ipratropium (Ipratropium/Albuterol 3 Ml Ampul.Neb) 3 ml NEB Q4HP PRN PRN Reason: Shortness Of Breath Last Admin: 03/05/22 19:58 Dose: 3 ml Alprazolam (Alprazolam 0.5 Mg Tablet) 0.5 mg PO TIDP PRN PRN Reason: Anxiety Last Admin: 03/11/22 14:35 Dose: 0.5 mg Amlodipine Besylate (Amlodipine 5 Mg Tablet) 5 mg PO DAILY [facility] Last Admin: 03/12/22 08:33 Dose: 5 mg Carvedilol (Carvedilol 12.5 Mg Tablet) 25 mg PO BIDCC [facility] Last Admin: 03/12/22 07:22 Dose: 25 mg Dextrose (Dextrose 50% 50 Ml Syringe) 25 - 50 ml IV UD PRN PRN Reason: Hypoglycemia Diagnostic Test (Pha) (Accu-Chek 1 Each Strip) 1 each FS Q6 [facility] Last Admin: 03/12/22 12:03 Dose: 1 each Heparin Sodium (Porcine) (Heparin 5,000 Unit/Ml Vial) 5,000 unit SQ Q12 [facility] Last Admin: 03/12/22 08:33 Dose: 5,000 unit Heparin Sodium (Porcine) (Heparin Flush 10 Units/Ml 5 Ml Syringe) 2 ml IV Q12 [facility] Last Admin: 03/12/22 08:34 Dose: 2 ml Hydralazine HCl (Hydralazine 20 Mg/Ml Vial) 20 mg IV Q4HP PRN PRN Reason: Hypertension Last Admin: 02/27/22 21:08 Dose: 20 mg Hydromorphone HCl (Hydromorphone 1 Mg/Ml Syringe) 0 mg IV Q2HP PRN; Protocol PRN Reason: Per Pain Protocol Last Admin: 03/11/22 10:27 Dose: 1 mg Hydroxyzine HCl (Hydroxyzine 25 Mg Tablet) 25 mg PO TIDP PRN PRN Reason: Allergic Symptoms Last Admin: 03/12/22 07:22 Dose: 25 mg Acetaminophen (Ofirmev) 1,000 mg in 100 mls @ 200 mls/hr IV Q6H [facility]; Protocol Last Infusion: 03/12/22 08:34 Dose: Infused Meropenem 2 gm/ Sodium (Chloride) 100 mls @ 100 mls/hr IV Q8H [facility]; Protocol Last Infusion: 03/12/22 06:16 Dose: Infused Fluconazole (Diflucan) 400 mg in 200 mls @ 100 mls/hr IV Q24H [facility] Last Admin: 03/12/22 09:39 Dose: 100 mls/hr Calcium Gluconate 5 meq/Potassium Chloride 40 meq/Potassium Phosphate 20 meq/Multivitamins/Minerals 10 ml/Magnesium Sulfate 4.06 meq/Sodium Acetate 20 meq/ Sodium Phosphate 40 mmol/ Amino Acids 2,069.6314 mls @ 85 mls/hr IV DAILY@1500 [facility] Last Admin: 03/11/22 15:37 Dose: 85 mls/hr Insulin Human Lispro (Insulin Lispro 1 Unit/0.01 Ml Unit) 0 unit SQ Q6 [facility]; Protocol Last Admin: 03/12/22 12:06 Dose: 4 units Labetalol HCl (Labetalol 5 Mg/Ml Ml) 10 - 20 mg IV Q2HP PRN PRN Reason: Hypertension Last Admin: 02/27/22 23:42 Dose: 20 mg Melatonin (Melatonin 3 Mg Tablet) 3 mg PO HSP PRN PRN Reason: Sleep Last Admin: 03/11/22 21:48 Dose: 3 mg Metoclopramide HCl (Metoclopramide 10 Mg/2 Ml Vial) 10 mg IV Q6 [facility] Last Admin: 03/12/22 12:02 Dose: 10 mg Nystatin (Nystatin Crm 1 Dose Tube) 1 dose TOPICAL TID [facility] Last Admin: 03/12/22 08:34 Dose: 1 dose Octreotide Acetate (Octreotide Acetate 100 Mcg/Ml Vial) 100 mcg SQ TID [facility] Last Admin: 03/12/22 08:33 Dose: 100 mcg Oxycodone HCl (Oxycodone Hcl 5 Mg Tablet) 5 mg PO Q4-6HP PRN; Protocol PRN Reason: Per Pain Protocol Last Admin: 03/09/22 15:55 Dose: 5 mg Promethazine HCl (Promethazine 25 Mg/Ml Vial) 12.5 mg IV Q4HP PRN; Protocol PRN Reason: Nausea/Vomiting Last Admin: 03/03/22 19:30 Dose: 12.5 mg Scopolamine (Scopolamine 1 Patch Patch) 1 patch TOPICAL Q72H [facility] Last Admin: 03/09/22 16:21 Dose: Not Given Sodium Chloride (0.9 % Sodium Chloride 10 Ml Syringe) 10 ml IV Q12 [facility] Last Admin: 03/12/22 08:34 Dose: 10 ml Sodium Chloride (0.9 % Sodium Chloride 10 Ml Syringe) 10 ml IV UD PRN PRN Reason: FLUSH Last Admin: 03/10/22 16:57 Dose: 10 ml Tamsulosin HCl (Tamsulosin 0.4 Mg Capsule) 0.4 mg PO HS [facility] Last Admin: 03/11/22 21:47 Dose: 0.4 mg Trazodone HCl (Trazodone Hcl 50 Mg Tablet) 50 mg PO HSP PRN PRN Reason: Insomnia A/P Narrative A/P Narrative: Assessment and Plans: *Cholelithiasis and choledocholithiasis: s/p lap converted to open cholecystectomy (02/18) -per Surgeon *Microperforations/small bowel leak/hematoma/fistula: s/p Ex-lap (02/23) -Leukocytosis resolved -garcía in wound cx *Post-Op Ileus: *Acute hypoxic respiratory failure, post operative: resolved, likely atelectasis and volume overload *PNA: resolved *Essential HTN: improved with med adjustment *VINCENT on CKD III: improved *Anemia: *Metabolic acidosis: improved *Hypokalemia: improved *Obesity: BMI 40 *UR: P: -Postop management per general surgery. -Antimicrobials per surgery, wound vac -Monitor volume status while receiving TPN -monitor renal fxn -Electrolyte replacement as needed -Acapella/Incentive spirometry, prn Supplemental oxygen -cont Amlodipine, coreg -flomax started -pt/ot -ppx: heparin / ppi -CODE STATUS DNR/DNI Time Spent With Patient Time: Total time spent is greater than 50% in coordination of care (as documented) at patient's floor/unit and/or counseling patient: QUALITY VTE Deep Vein Thrombosis/Pulmonary Embolism Present on Admission: No
[2022-03-12] MEDS: CALCIUM GLUCONATE IV SCH (15:36)
[2022-03-12] MEDS: POTASSIUM CHLORIDE IV SCH (15:36)
[2022-03-12] MEDS: POTASSIUM PHOSPHATE IV SCH (15:36)
[2022-03-12] MEDS: [UNRECOGNIZED DRUG - OTHER] IV SCH (15:36)
[2022-03-12] MEDS: MVI IV SCH (15:36)
[2022-03-12] MEDS: SCOPOLAMINE 1 PATCH PATCH TOPICAL SCH (17:29)
[2022-03-12] MEDS: IPRATROPIUM/ALBUTEROL 3 ML AMPUL.NEB NEB PRN (19:56)
[2022-03-12] MEDS: MELATONIN 3 MG TABLET PO PRN (21:41)
[2022-03-12] MEDS: TAMSULOSIN 0.4 MG CAPSULE PO SCH (21:41)
[2022-03-13] MEDS: METOCLOPRAMIDE 10 MG/2 ML VIAL IV SCH ×4 (00:53→17:38)
[2022-03-13] MEDS: SUCRETS LOZENGE PO PRN ×2 (00:53→14:35)
[2022-03-13] MEDS: ACETAMINOPHEN 1,000 MG/100 ML BAG IV SCH ×4 (00:53→19:02)
[2022-03-13] MEDS: INSULIN LISPRO 1 UNIT/0.01 ML UNIT SQ SCH ×4 (00:55→17:21)
[2022-03-13] MEDS: ALPRAZolam 0.5 MG TABLET PO PRN (03:10)
[2022-03-13] MEDS: MEROPENEM 2 GM in 0.9 % SODIUM CHLORIDE 100 ML IV SCH ×3 (05:45→21:33)
[2022-03-13 06:16] LABS: Basophils # (Auto) 0.11 K/mcL (0.00-0.30); Basophils % (Auto) 1.5 % (0.0-2.0); Eosinophils % (Auto) 5.3 % (0.0-7.0); Hematocrit 28.8 % (40.1-51.0); Hemoglobin 9.1 g/dL (13.7-17.5); Lymphocytes # (Auto) 2.47 K/mcL (1.50-4.80); Lymphocytes % (Auto) 32.9 % (15.5-49.0); Mean Cell Volume 87.5 fL (80.0-100.0); Mean Corpuscular HGB Conc 31.6 g/dL (31.0-36.0); Mean Platelet Volume 9.8 fL (8.8-12.5); Monocytes # (Auto) 1.05 K/mcL (0.10-0.90); Neutrophils % (Auto) 45.2 % (38.0-78.0); Platelet Count 254 K/mcL (140-440); RBC 3.29 M/mcL (4.63-6.08); Red Cell Distribution Width 13.2 % (11.5-14.5); WBC 7.5 K/mcL (4.5-11.0)
[2022-03-13 06:53] LABS: ALT/SGPT 22 U/L (<40); AST/SGOT 24 U/L (<40); Albumin 2.7 gm/dL (3.2-5.2); Albumin/Globulin Ratio 0.7 (1.0-2.3); Alkaline Phosphatase 142 U/L (39-117); Bilirubin,Direct < 0.2 mg/dL (0-0.3); Bilirubin,Total 0.4 mg/dL (0.1-1.0); Blood Urea Nitrogen 26 mg/dL (8-23); Calcium 8.5 mg/dL (8.6-10.4); Carbon Dioxide 25 mmol/L (22-30); Chloride 104 mmol/L (96-108); Globulin 3.8 gm/dL (2.2-3.7); Glomerular Filtration Rate 66; Glucose 161 mg/dL (70-105); Lactate Dehydrogenase 191 U/L (135-225); Phosphorous 3.1 mg/dL (2.5-4.5); Triglycerides 252 mg/dL (<150); Uric Acid 3.2 mg/dL (2.5-8.0)
[2022-03-13] MEDS: FLUCONAZOLE 400 MG/200 ML BAG IV SCH (08:18)
[2022-03-13] MEDS: CARVEDILOL 12.5 MG TABLET PO SCH ×2 (08:19→17:35)
[2022-03-13] MEDS: NYSTATIN CRM 1 DOSE TUBE TOPICAL SCH ×3 (08:20→21:33)
[2022-03-13] MEDS: HEPARIN 5,000 UNIT/ML VIAL SQ SCH ×2 (08:20→21:32)
[2022-03-13] MEDS: amLODIPine 5 MG TABLET PO SCH (08:20)
[2022-03-13] MEDS: 0.9 % SODIUM CHLORIDE 10 ML SYRINGE IV SCH ×2 (08:21→21:30)
[2022-03-13] MEDS: OCTREOTIDE ACETATE 100 MCG/ML VIAL SQ SCH ×3 (08:32→21:31)
--- NOTE | 2022-03-13 10:14 | General Surgery Progress Note ---
SUBJECTIVE Subjective Patient information: Note initiated : 03/13/22 at 10:09 am Service Date, if different from initiated Date: [] Patient: Jonas Noble 72 y/o M admitted on 02/18/22 for bowel obstruction- Cholelithiasis. Chief Complaint: [] No new issues, feels ok this am, tolerating diet without nausea or emesis. Having small diarrheal stools without much in the way of flatus. No temps and denies any signifcant abdominal pain Principal diagnosis: Small bowel microperforation; enterocutaneous fistula Constitutional Vitals: Vital Signs Temp Pulse Resp BP Pulse Ox O2 Del Method O2 Flow Rate 98.6 F 78 14 135/76 100 0 03/13/22 08:00 03/13/22 08:00 03/13/22 08:00 03/13/22 08:00 03/13/22 08:00 03/13/22 08:00 03/08/22 00:00 Period Temp Pulse Resp BP Sys/Maza Pulse Ox O2 Del Method O2 Flow Rate Last 24 Hr 97.5 F-99 F 61-78 12-21 123-139/62-76 95-100 Room Air-Room Air Intake and Output 03/12/22 03/13/22 03/13/22 19:59 03:59 11:59 Intake Total 2239 450 400 Output Total 557 401 480 Balance 1682 49 -80 Weight 273 lb Intake & Output: Intake & Output 03/12/22 03/13/22 03/13/22 19:59 03:59 11:59 Intake Total 2239 450 400 Output Total 557 401 480 Balance 1682 49 -80 Weight 273 lb Intake: IV 2239 300 200 Calcium Gluconate 5 Meq 2039 Potassium Chloride 40 Meq Potassium Phosphate 20 Meq Infuvite Adult 10 ml Magnesium Sulfate 4.06 Meq Sodium Acetate 20 Meq Sodium Phosphate 40 Mmol In Clinimix 5%-20% Solution 2,000 ml @ 85 mls/hr IV DAILY@1500 [facility] Rx#:[id number] Merrem 2 gm In Sodium Chloride 100 100 100 0.9% 100 ml @ 100 mls/hr IV Q8H [facility] Rx#:[id number] Oral 150 200 Output: Drainage 5 1 Medial Abdomen TREVER Drain 5 1 Void Amount 550 400 480 # of times incontinent of urine 2 Other: Meal Dinner Percent of Meal Consumed 25% Feeding Ability Assist with Tray Set Up Nourishment/Supplement name magic cup Urine Appearance Clear Clear Urine Color Yellow Yellow Urine Odor Normal Stool Size Small Stool Color Brown Stool Consistency Liquid # Bowel Movements 1 # of times incontinent of 1 Bowels Exam: looks well, non toxic, pleasantly conversant Respiratory Additional comments: normal effort without distress Cardiovascular Cardiovascular exam: Present RRR GI/Abdominal Additional comments: soft and non tender, non distended, no mass noted, drains and VA are scant Extremities Exam Additional comments: well perfused A/P Assessment and plan (1) Intestinal fistula: Assessment and plan: Doing well with current management Continue progression as able Increase activity as tolerated Status: Acute Time Spent With Patient Time: Total time spent is greater than 50% in coordination of care (as documented) at patient's floor/unit and/or counseling patient:
--- NOTE | 2022-03-13 11:22 | Internal Med Progress Note ---
SUBJECTIVE Subjective Patient information: Note initiated : 03/13/22 at 11:20 am Service Date, if different from initiated Date: [] Patient: Jonas Noble 72 y/o M admitted on 02/18/22 for bowel obstruction- Cholelithiasis. Chief Complaint: [] Principal diagnosis: Small bowel microperforation; enterocutaneous fistula Interval history: 03/10 No significant events overnight, the patient is having bowel movements. Cont inues on TPN and clear liquid diet. Patient is on meropenem and on fluconazole per general surgery. Tentative plan is for [facility] pending CT abdomen and pelvis results. 03/11 Vital stable overnight, morning labs showed a drop in hemoglobin from 11.2-9.5, will recheck in the afternoon. CT abdomen pelvis report pending. 03/12 No significant events overnight, vital stable. CBC and inpatient panel stable. The CT abdomen pelvis with IV contrast showed 2 common bile duct stones, 5 cm fluid collection near the lana hepatis of uncertain etiology. There is also a 5 cm encapsulated fluid collection anterior to the central mesenteric cavity, 3 cm fluid collection in the left mid mesenteric cavity and adjacent 5 cm fluid collection inferiorly, radiology feels these are possibly seromas. There is also a 5.6 cm thick walled fluid collection with air and camper's fascia possibly representing an abscess. 03/13 Vital stable overnight, morning labs similar to yesterday, no significant changes in clinical status. Physical exam Head: Atraumatic, normal inspection. Eyes: normal appearance, no scleral icterus. Neck: full ROM Respiratory: no respiratory distress. Cardiovascular: normal rate and rhythm, S1, S2. GI/Abdominal: Distended abdomen with anterior surgical incision covered with wo und VAC, 1 abdominal drains present, soft, nontender, no guarding. Extremities: full range of motion, nontender. Neurological: CN II-XII intact, intact motor, intact sensation. Psychiatric: normal mood. Skin: warm, normal color Constitutional Vitals: Vital Signs Temp Pulse Resp BP Pulse Ox O2 Del Method O2 Flow Rate 98.6 F 78 14 135/76 100 0 03/13/22 08:00 03/13/22 08:00 03/13/22 08:00 03/13/22 08:00 03/13/22 08:00 03/13/22 08:00 03/08/22 00:00 Period Temp Pulse Resp BP Sys/Maza Pulse Ox O2 Del Method O2 Flow Rate Last 24 Hr 97.5 F-99 F 61-78 12- 123-139/62-76 95-100 Room Air-Room Air Intake and Output 03/12/22 03/13/22 03/13/22 19:59 03:59 11:59 Intake Total 2239 450 600 Output Total 557 401 480 Balance 1682 49 120 Weight 123.831 kg Intake & Output: Intake & Output 03/12/22 03/13/22 03/13/22 19:59 03:59 11:59 Intake Total 2239 450 600 Output Total 557 401 480 Balance 1682 49 120 Weight 123.831 kg Intake: IV 2239 300 400 Calcium Gluconate 5 Meq 2039 Potassium Chloride 40 Meq Potassium Phosphate 20 Meq Infuvite Adult 10 ml Magnesium Sulfate 4.06 Meq Sodium Acetate 20 Meq Sodium Phosphate 40 Mmol In Clinimix 5%-20% Solution 2,000 ml @ 85 mls/hr IV DAILY@1500 [facility] Rx#:[id number] Merrem 2 gm In Sodium Chloride 100 100 100 0.9% 100 ml @ 100 mls/hr IV Q8H [facility] Rx#:[id number] Oral 150 200 Output: Drainage 5 1 Medial Abdomen TREVER Drain 5 1 Void Amount 550 400 480 # of times incontinent of urine 2 Other: Meal Dinner Percent of Meal Consumed 25% Feeding Ability Assist with Tray Set Up Nourishment/Supplement name magic cup Urine Appearance Clear Clear Urine Color Yellow Yellow Urine Odor Normal Stool Size Small Stool Color Brown Stool Consistency Liquid # Bowel Movements 1 # of times incontinent of 1 Bowels OBJ DATA Labs CBC & Chem 7: 03/13/22 05:18 03/13/22 05:18 Labs: Abnormal Lab Results 03/13/22 03/13/22 03/12/22 05:18 05:18 05:00 RBC 3.29 L Hgb 9.1 L Hct 28.8 L Immature Gran % (Auto) 1.1 H [place] % (Auto) 14.0 H [place] # (Auto) 1.05 H Immature Gran # 0.08 H BUN 26 H 25 H Glucose 161 H 143 H Calcium 8.5 L GGT 71 H Alkaline Phosphatase 142 H 165 H Albumin 2.7 L 3.0 L Globulin 3.8 H 4.2 H Albumin/Globulin Ratio 0.7 L 0.7 L Triglycerides 252 H 272 H 03/12/22 03/11/22 03/11/22 05:00 13:01 05:13 RBC 3.60 L Hgb 10.2 L 9.4 L Hct 31.5 L Immature Gran % (Auto) 1.2 H [place] % (Auto) 12.4 H [place] # (Auto) 0.95 H Immature Gran # 0.09 H BUN 26 H Glucose 176 H Calcium 8.5 L GGT 72 H Alkaline Phosphatase 164 H Albumin 2.8 L Globulin 3.8 H Albumin/Globulin Ratio 0.7 L Triglycerides 284 H 03/11/22 05:13 RBC 3.42 L Hgb 9.5 L Hct 30.2 L Immature Gran % (Auto) 1.0 H [place] % (Auto) 14.4 H [place] # (Auto) 1.03 H Immature Gran # 0.07 H BUN Glucose Calcium GGT Alkaline Phosphatase Albumin Globulin Albumin/Globulin Ratio Triglycerides Meds: Medications Albuterol/Ipratropium (Ipratropium/Albuterol 3 Ml Ampul.Neb) 3 ml NEB Q4HP PRN PRN Reason: Shortness Of Breath Last Admin: 03/12/22 19:56 Dose: 3 ml Alprazolam (Alprazolam 0.5 Mg Tablet) 0.5 mg PO TIDP PRN PRN Reason: Anxiety Last Admin: 03/13/22 03:10 Dose: 0.5 mg Amlodipine Besylate (Amlodipine 5 Mg Tablet) 5 mg PO DAILY [facility] Last Admin: 03/13/22 08:20 Dose: 5 mg Carvedilol (Carvedilol 12.5 Mg Tablet) 25 mg PO BIDCC [facility] Last Admin: 03/13/22 08:19 Dose: 25 mg Dextrose (Dextrose 50% 50 Ml Syringe) 25 - 50 ml IV UD PRN PRN Reason: Hypoglycemia Diagnostic Test (Pha) (Accu-Chek 1 Each Strip) 1 each FS Q6 [facility] Last Admin: 03/13/22 05:46 Dose: 1 each Heparin Sodium (Porcine) (Heparin 5,000 Unit/Ml Vial) 5,000 unit SQ Q12 [facility] Last Admin: 03/13/22 08:20 Dose: 5,000 unit Heparin Sodium (Porcine) (Heparin Flush 10 Units/Ml 5 Ml Syringe) 2 ml IV Q12 [facility] Last Admin: 03/13/22 08:21 Dose: 2 ml Hydralazine HCl (Hydralazine 20 Mg/Ml Vial) 20 mg IV Q4HP PRN PRN Reason: Hypertension Last Admin: 02/27/22 21:08 Dose: 20 mg Hydromorphone HCl (Hydromorphone 1 Mg/Ml Syringe) 0 mg IV Q2HP PRN; Protocol PRN Reason: Per Pain Protocol Last Admin: 03/11/22 10:27 Dose: 1 mg Hydroxyzine HCl (Hydroxyzine 25 Mg Tablet) 25 mg PO TIDP PRN PRN Reason: Allergic Symptoms Last Admin: 03/12/22 21:41 Dose: 25 mg Acetaminophen (Ofirmev) 1,000 mg in 100 mls @ 200 mls/hr IV Q6H [facility]; Protocol Last Infusion: 03/13/22 08:31 Dose: Infused Meropenem 2 gm/ Sodium (Chloride) 100 mls @ 100 mls/hr IV Q8H [facility]; Protocol Last Infusion: 03/13/22 06:43 Dose: Infused Fluconazole (Diflucan) 400 mg in 200 mls @ 100 mls/hr IV Q24H [facility] Last Infusion: 03/13/22 11:04 Dose: Infused Calcium Gluconate 5 meq/Potassium Chloride 40 meq/Potassium Phosphate 20 meq/Multivitamins/Minerals 10 ml/Magnesium Sulfate 4.06 meq/Sodium Acetate 20 meq/ Sodium Phosphate 40 mmol/ Amino Acids 2,069.6314 mls @ 85 mls/hr IV DAILY@1500 [facility] Last Admin: 03/12/22 15:36 Dose: 85 mls/hr Insulin Human Lispro (Insulin Lispro 1 Unit/0.01 Ml Unit) 0 unit SQ Q6 [facility]; Protocol Last Admin: 03/13/22 05:46 Dose: 2 units Labetalol HCl (Labetalol 5 Mg/Ml Ml) 10 - 20 mg IV Q2HP PRN PRN Reason: Hypertension Last Admin: 02/27/22 23:42 Dose: 20 mg Melatonin (Melatonin 3 Mg Tablet) 3 mg PO HSP PRN PRN Reason: Sleep Last Admin: 03/12/22 21:41 Dose: 3 mg Metoclopramide HCl (Metoclopramide 10 Mg/2 Ml Vial) 10 mg IV Q6 [facility] Last Admin: 03/13/22 05:45 Dose: 10 mg Nystatin (Nystatin Crm 1 Dose Tube) 1 dose TOPICAL TID [facility] Last Admin: 03/13/22 08:20 Dose: 1 dose Octreotide Acetate (Octreotide Acetate 100 Mcg/Ml Vial) 100 mcg SQ TID [facility] Last Admin: 03/13/22 08:32 Dose: 100 mcg Oxycodone HCl (Oxycodone Hcl 5 Mg Tablet) 5 mg PO Q4-6HP PRN; Protocol PRN Reason: Per Pain Protocol Last Admin: 03/09/22 15:55 Dose: 5 mg Promethazine HCl (Promethazine 25 Mg/Ml Vial) 12.5 mg IV Q4HP PRN; Protocol PRN Reason: Nausea/Vomiting Last Admin: 03/03/22 19:30 Dose: 12.5 mg Scopolamine (Scopolamine 1 Patch Patch) 1 patch TOPICAL Q72H [facility] Last Admin: 03/12/22 17:29 Dose: Not Given Sodium Chloride (0.9 % Sodium Chloride 10 Ml Syringe) 10 ml IV Q12 [facility] Last Admin: 03/13/22 08:21 Dose: 10 ml Sodium Chloride (0.9 % Sodium Chloride 10 Ml Syringe) 10 ml IV UD PRN PRN Reason: FLUSH Last Admin: 03/10/22 16:57 Dose: 10 ml Tamsulosin HCl (Tamsulosin 0.4 Mg Capsule) 0.4 mg PO HS [facility] Last Admin: 03/12/22 21:41 Dose: 0.4 mg Trazodone HCl (Trazodone Hcl 50 Mg Tablet) 50 mg PO HSP PRN PRN Reason: Insomnia A/P Assessment and plan (1) Cholelithiasis with choledocholithiasis: Status: Acute (2) Benign hypertension with CKD (chronic kidney disease) stage III: Status: Chronic Comment: Baseline creatinine clearance 45 to 50 cc/min with a bland urinalysis Blood pressure goal 130 over (3) Stage 1 acute kidney injury: Status: Acute (4) Pneumonia involving left lung: Status: Acute (5) BPH w urinary obs/LUTS: Status: Acute (6) Acute respiratory failure with hypoxia: Status: Acute Narrative A/P Narrative: Assessment and Plans: *Cholelithiasis and choledocholithiasis: s/p lap converted to open cholecystectomy (02/18) -per Surgeon *Microperforations/small bowel leak/hematoma/fistula: s/p Ex-lap (02/23) -Leukocytosis resolved -wanda in wound cx *Post-Op Ileus: *Acute hypoxic respiratory failure, post operative: resolved, likely atelectasis and volume overload *PNA: resolved *Essential HTN: improved with med adjustment *VINCENT on CKD III: improved *Anemia: *Metabolic acidosis: improved *Hypokalemia: improved *Obesity: BMI 40 *UR: *Diarrhea P: -Postop management per general surgery. -Anti biotics per surgery, wound vac -Fluconazole for Wanda grown from wound culture, likely 7-10 days. -Monitor volume status while receiving TPN -monitor renal fxn -Electrolyte replacement as needed -Acapella/Incentive spirometry, prn Supplemental oxygen -cont Amlodipine, coreg -flomax -pt/ot -ppx: heparin / ppi -CODE STATUS DNR/DNI Time Spent With Patient Time: Total time spent is greater than 50% in coordination of care (as documented) at patient's floor/unit and/or counseling patient: QUALITY VTE Deep Vein Thrombosis/Pulmonary Embolism Present on Admission: No
[2022-03-13] MEDS: MVI IV SCH (15:24)
[2022-03-13] MEDS: POTASSIUM PHOSPHATE IV SCH (15:24)
[2022-03-13] MEDS: POTASSIUM CHLORIDE IV SCH (15:24)
[2022-03-13] MEDS: [UNRECOGNIZED DRUG - OTHER] IV SCH (15:24)
[2022-03-13] MEDS: CALCIUM GLUCONATE IV SCH (15:24)
[2022-03-13] MEDS: IPRATROPIUM/ALBUTEROL 3 ML AMPUL.NEB NEB PRN ×2 (17:00→19:45)
[2022-03-13] MEDS: MELATONIN 3 MG TABLET PO PRN (21:26)
[2022-03-13] MEDS: traZODone HCL 50 MG TABLET PO PRN (21:26)
[2022-03-13] MEDS: VANCOMYCIN 125 MG CAPSULE PO SCH (21:26)
[2022-03-13] MEDS: hydrOXYzine 25 MG TABLET PO PRN (21:26)
[2022-03-13] MEDS: TAMSULOSIN 0.4 MG CAPSULE PO SCH (21:26)
[2022-03-13] MEDS: oxyCODONE HCL 5 MG TABLET PO PRN (21:58)
[2022-03-14] MEDS: ACETAMINOPHEN 1,000 MG/100 ML BAG IV SCH ×3 (00:38→13:09)
[2022-03-14] MEDS: INSULIN LISPRO 1 UNIT/0.01 ML UNIT SQ SCH ×5 (00:38→23:24)
[2022-03-14] MEDS: METOCLOPRAMIDE 10 MG/2 ML VIAL IV SCH ×5 (00:38→23:24)
[2022-03-14] MEDS: SUCRETS LOZENGE PO PRN ×3 (00:39→23:41)
[2022-03-14] MEDS: ALPRAZolam 0.5 MG TABLET PO PRN ×2 (03:23→10:11)
[2022-03-14] MEDS: MEROPENEM 2 GM in 0.9 % SODIUM CHLORIDE 100 ML IV SCH ×3 (05:16→22:11)
[2022-03-14 07:11] LABS: ALT/SGPT 25 U/L (<40); AST/SGOT 28 U/L (<40); Albumin 2.7 gm/dL (3.2-5.2); Albumin/Globulin Ratio 0.7 (1.0-2.3); Alkaline Phosphatase 142 U/L (39-117); Bilirubin,Direct < 0.2 mg/dL (0-0.3); Bilirubin,Total 0.5 mg/dL (0.1-1.0); Blood Urea Nitrogen 23 mg/dL (8-23); Calcium 8.5 mg/dL (8.6-10.4); Carbon Dioxide 25 mmol/L (22-30); Chloride 103 mmol/L (96-108); Globulin 4.1 gm/dL (2.2-3.7); Glomerular Filtration Rate 74; Glucose 132 mg/dL (70-105); Lactate Dehydrogenase 199 U/L (135-225); Phosphorous 3.3 mg/dL (2.5-4.5); Triglycerides 246 mg/dL (<150); Uric Acid 3.1 mg/dL (2.5-8.0)
--- NOTE | 2022-03-14 07:53 | Internal Med Progress Note ---
SUBJECTIVE Subjective Patient information: Note initiated : 03/14/22 at 7:49 am Service Date, if different from initiated Date: [] Patient: Jonas Noble 72 y/o M admitted on 02/18/22 for bowel obstruction- Cholelithiasis. Chief Complaint: [] Principal diagnosis: Small bowel microperforation; enterocutaneous fistula Interval history: 03/10 No significant events overnight, the patient is having bowel movements. Edelmira nucarl on TPN and clear liquid diet. Patient is on meropenem and on fluconazole per general surgery. Tentative plan is for [facility] pending CT abdomen and pelvis results. 03/11 Vital stable overnight, morning labs showed a drop in hemoglobin from 11.2-9.5, will recheck in the afternoon. CT abdomen pelvis report pending. 03/12 No significant events overnight, vital stable. CBC and inpatient panel stable. The CT abdomen pelvis with IV contrast showed 2 common bile duct stones, 5 cm fluid collection near the lana hepatis of uncertain etiology. There is also a 5 cm encapsulated fluid collection anterior to the central mesenteric cavity, 3 cm fluid collection in the left mid mesenteric cavity and adjacent 5 cm fluid collection inferiorly, radiology feels these are possibly seromas. There is also a 5.6 cm thick walled fluid collection with air and camper's fascia possibly representing an abscess. 03/13 Vital stable overnight, morning labs similar to yesterday, patient is having more diarrhea now, C. difficile screen ordered, otherwise no significant changes in clinical status. 03/14 Vital stable overnight, C. difficile screen resulted intermediate. Started oral vancomycin given the patient has been having more diarrhea recently. Physical exam Head: Atraumatic, normal inspection. Eyes: normal appearance, no scleral icterus. Neck: full ROM Respiratory: no respiratory distress. Cardiovascular: normal rate and rhythm, S1, S2. GI/Abdominal: Distended abdomen with anterior surgical incision covered with wound VAC, 1 abdominal drains present, soft, nontender, no guarding. Extremities: full range of motion, nontender. Neurological: CN II-XII intact, intact motor, intact sensation. Psychiatric: normal mood. Skin: warm, normal color Constitutional Vitals: Vital Signs Temp Pulse Resp BP Pulse Ox O2 Del Method O2 Flow Rate 98.6 F 75 14 141/96 98 0 03/14/22 07:34 03/14/22 07:34 03/14/22 07:34 03/14/22 07:34 03/14/22 07:34 03/14/22 07:34 03/08/22 00:00 Period Temp Pulse Resp BP Sys/Maza Pulse Ox O2 Del Method O2 Flow Rate Last 24 Hr 97.9 F-98.8 F 71-108 14- 129-156/62-96 93-100 Room Air-Room Air Intake and Output 03/13/22 03/14/22 03/14/22 19:59 03:59 11:59 Intake Total 2623 600 100 Output Total 1125 725 200 Balance 1498 -125 -100 Weight 125.191 kg Intake & Output: Intake & Output 03/13/22 03/14/22 03/14/22 19:59 03:59 11:59 Intake Total 2623 600 100 Output Total 1125 725 200 Balance 1498 -125 -100 Weight 125.191 kg Intake: IV 2223 300 100 Calcium Gluconate 5 Meq 2023 Potassium Chloride 40 Meq Potassium Phosphate 20 Meq Infuvite Adult 10 ml Magnesium Sulfate 4.06 Meq Sodium Acetate 20 Meq Sodium Phosphate 40 Mmol In Clinimix 5%-20% Solution 2,000 ml @ 85 mls/hr IV DAILY@1500 [facility] Rx#:[id number] Merrem 2 gm In Sodium Chloride 100 100 100 0.9% 100 ml @ 100 mls/hr IV Q8H [facility] Rx#:[id number] Oral 400 300 Output: Void Amount 1125 725 200 Other: Urine Appearance Clear Clear Clear Urine Color Yellow Yellow Yellow Urine Odor Normal Normal Stool Size Small Moderate Stool Color Brown Brown Yellow Stool Consistency Watery Loose Loose # Voids 1 # Bowel Movements 1 1 # of times incontinent of 1 Bowels OBJ DATA Labs CBC & Chem 7: 03/13/22 05:18 03/14/22 05:28 Labs: Abnormal Lab Results 03/14/22 03/13/22 03/13/22 05:28 05:18 05:18 RBC 3.29 L Hgb 9.1 L Hct 28.8 L Immature Gran % (Auto) 1.1 H [place] % (Auto) 14.0 H [place] # (Auto) 1.05 H Immature Gran # 0.08 H BUN 26 H Glucose 132 H 161 H Calcium 8.5 L 8.5 L GGT Alkaline Phosphatase 142 H 142 H Albumin 2.7 L 2.7 L Globulin 4.1 H 3.8 H Albumin/Globulin Ratio 0.7 L 0.7 L Triglycerides 246 H 252 H 03/12/22 03/12/22 03/11/22 05:00 05:00 13:01 RBC 3.60 L Hgb 10.2 L 9.4 L Hct 31.5 L Immature Gran % (Auto) 1.2 H [place] % (Auto) 12.4 H [place] # (Auto) 0.95 H Immature Gran # 0.09 H BUN 25 H Glucose 143 H Calcium GGT 71 H Alkaline Phosphatase 165 H Albumin 3.0 L Globulin 4.2 H Albumin/Globulin Ratio 0.7 L Triglycerides 272 H Meds: Medications Albuterol/Ipratropium (Ipratropium/Albuterol 3 Ml Ampul.Neb) 3 ml NEB Q4HP PRN PRN Reason: Shortness Of Breath Last Admin: 03/13/22 19:45 Dose: 3 ml Alprazolam (Alprazolam 0.5 Mg Tablet) 0.5 mg PO TIDP PRN PRN Reason: Anxiety Last Admin: 03/14/22 03:23 Dose: 0.5 mg Amlodipine Besylate (Amlodipine 5 Mg Tablet) 5 mg PO DAILY [facility] Last Admin: 03/13/22 08:20 Dose: 5 mg Carvedilol (Carvedilol 12.5 Mg Tablet) 25 mg PO BIDCC [facility] Last Admin: 03/13/22 17:35 Dose: 25 mg Dextrose (Dextrose 50% 50 Ml Syringe) 25 - 50 ml IV UD PRN PRN Reason: Hypoglycemia Diagnostic Test (Pha) (Accu-Chek 1 Each Strip) 1 each FS Q6 [facility] Last Admin: 03/14/22 05:23 Dose: 1 each Heparin Sodium (Porcine) (Heparin 5,000 Unit/Ml Vial) 5,000 unit SQ Q12 [facility] Last Admin: 03/13/22 21:32 Dose: 5,000 unit Heparin Sodium (Porcine) (Heparin Flush 10 Units/Ml 5 Ml Syringe) 2 ml IV Q12 [facility] Last Admin: 03/13/22 21:32 Dose: 2 ml Hydralazine HCl (Hydralazine 20 Mg/Ml Vial) 20 mg IV Q4HP PRN PRN Reason: Hypertension Last Admin: 02/27/22 21:08 Dose: 20 mg Hydromorphone HCl (Hydromorphone 1 Mg/Ml Syringe) 0 mg IV Q2HP PRN; Protocol PRN Reason: Per Pain Protocol Last Admin: 03/11/22 10:27 Dose: 1 mg Hydroxyzine HCl (Hydroxyzine 25 Mg Tablet) 25 mg PO TIDP PRN PRN Reason: Allergic Symptoms Last Admin: 03/13/22 21:26 Dose: 25 mg Acetaminophen (Ofirmev) 1,000 mg in 100 mls @ 200 mls/hr IV Q6H [facility]; Protocol Last Infusion: 03/14/22 01:46 Dose: Infused Meropenem 2 gm/ Sodium (Chloride) 100 mls @ 100 mls/hr IV Q8H [facility]; Protocol Last Infusion: 03/14/22 06:31 Dose: Infused Fluconazole (Diflucan) 400 mg in 200 mls @ 100 mls/hr IV Q24H [facility] Stop: 03/17/22 08:59 Last Infusion: 03/13/22 11:04 Dose: Infused Calcium Gluconate 5 meq/Potassium Chloride 40 meq/Potassium Phosphate 20 meq/Multivitamins/Minerals 10 ml/Magnesium Sulfate 4.06 meq/Sodium Acetate 20 meq/ Sodium Phosphate 40 mmol/ Amino Acids 2,069.6314 mls @ 85 mls/hr IV DAILY@1500 [facility] Last Admin: 03/13/22 15:24 Dose: 85 mls/hr Insulin Human Lispro (Insulin Lispro 1 Unit/0.01 Ml Unit) 0 unit SQ Q6 [facility]; Protocol Last Admin: 03/14/22 05:24 Dose: Not Given Labetalol HCl (Labetalol 5 Mg/Ml Ml) 10 - 20 mg IV Q2HP PRN PRN Reason: Hypertension Last Admin: 02/27/22 23:42 Dose: 20 mg Melatonin (Melatonin 3 Mg Tablet) 3 mg PO HSP PRN PRN Reason: Sleep Last Admin: 03/13/22 21:26 Dose: 3 mg Metoclopramide HCl (Metoclopramide 10 Mg/2 Ml Vial) 10 mg IV Q6 [facility] Last Admin: 03/14/22 05:24 Dose: 10 mg Nystatin (Nystatin Crm 1 Dose Tube) 1 dose TOPICAL TID [facility] Last Admin: 03/13/22 21:33 Dose: 1 dose Octreotide Acetate (Octreotide Acetate 100 Mcg/Ml Vial) 100 mcg SQ TID [facility] Last Admin: 03/13/22 21:31 Dose: 100 mcg Oxycodone HCl (Oxycodone Hcl 5 Mg Tablet) 5 mg PO Q4-6HP PRN; Protocol PRN Reason: Per Pain Protocol Last Admin: 03/13/22 21:58 Dose: 5 mg Promethazine HCl (Promethazine 25 Mg/Ml Vial) 12.5 mg IV Q4HP PRN; Protocol PRN Reason: Nausea/Vomiting Last Admin: 03/03/22 19:30 Dose: 12.5 mg Scopolamine (Scopolamine 1 Patch Patch) 1 patch TOPICAL Q72H [facility] Last Admin: 03/12/22 17:29 Dose: Not Given Sodium Chloride (0.9 % Sodium Chloride 10 Ml Syringe) 10 ml IV Q12 [facility] Last Admin: 03/13/22 21:30 Dose: 10 ml Sodium Chloride (0.9 % Sodium Chloride 10 Ml Syringe) 10 ml IV UD PRN PRN Reason: FLUSH Last Admin: 03/10/22 16:57 Dose: 10 ml Tamsulosin HCl (Tamsulosin 0.4 Mg Capsule) 0.4 mg PO HS [facility] Last Admin: 03/13/22 21:26 Dose: 0.4 mg Trazodone HCl (Trazodone Hcl 50 Mg Tablet) 50 mg PO HSP PRN PRN Reason: Insomnia Last Admin: 03/13/22 21:26 Dose: 50 mg Vancomycin HCl (Vancomycin 125 Mg Capsule) 125 mg PO QID [facility]; Protocol Last Admin: 03/13/22 21:26 Dose: 125 mg A/P Assessment and plan (1) Cholelithiasis with choledocholithiasis: Status: Acute (2) Benign hypertension with CKD (chronic kidney disease) stage III: Status: Chronic Comment: Baseline creatinine clearance 45 to 50 cc/min with a bland urinalysis Blood pressure goal 130 over (3) Stage 1 acute kidney injury: Status: Acute (4) Pneumonia involving left lung: Status: Acute (5) BPH w urinary obs/LUTS: Status: Acute (6) Acute respiratory failure with hypoxia: Status: Acute Narrative A/P Narrative: Assessment and Plans: *Cholelithiasis and choledocholithiasis: s/p lap converted to open cholecystectomy (02/18) -per Surgeon *Microperforations/small bowel leak/hematoma/fistula: s/p Ex-lap (02/23) -Leukocytosis resolved -wanda in wound cx *C. difficile colonization versus colitis *Prolonged antibiotic therapy *Essential HTN: improved with med adjustment *VINCENT on CKD III: improved *Anemia: *Obesity: BMI 40 *Diarrhea P: -Postop management per general surgery. -Anti biotics per surgery, wound vac -Fluconazole for Wanda grown from wound culture, likely 7-10 days. -P.o. vancomycin for C. difficile -Monitor volume status while receiving TPN -monitor renal fxn -Electrolyte replacement as needed -cont Amlodipine, coreg -flomax -pt/ot -ppx: heparin / ppi -CODE STATUS DNR/DNI -Disposition: TBD Time Spent With Patient Time: Total time spent is greater than 50% in coordination of care (as documented) at patient's floor/unit and/or counseling patient: QUALITY VTE Deep Vein Thrombosis/Pulmonary Embolism Present on Admission: No
[2022-03-14] MEDS: CARVEDILOL 12.5 MG TABLET PO SCH ×2 (08:55→17:13)
[2022-03-14] MEDS: amLODIPine 5 MG TABLET PO SCH (08:55)
[2022-03-14] MEDS: HEPARIN 5,000 UNIT/ML VIAL SQ SCH ×2 (08:56→20:08)
[2022-03-14] MEDS: NYSTATIN CRM 1 DOSE TUBE TOPICAL SCH ×3 (08:56→20:08)
[2022-03-14] MEDS: 0.9 % SODIUM CHLORIDE 10 ML SYRINGE IV SCH ×2 (08:57→20:08)
[2022-03-14] MEDS: VANCOMYCIN 125 MG CAPSULE PO SCH ×4 (08:57→20:08)
[2022-03-14] MEDS: FLUCONAZOLE 400 MG/200 ML BAG IV SCH (09:10)
[2022-03-14] MEDS: OCTREOTIDE ACETATE 100 MCG/ML VIAL SQ SCH ×3 (10:09→20:10)
--- NOTE | 2022-03-14 13:48 | General Surgery Progress Note ---
SUBJECTIVE Subjective Patient information: Note initiated : 03/14/22 at 1:44 pm Service Date, if different from initiated Date: [] Patient: Jonas Noble 72 y/o M admitted on 02/18/22 for bowel obstruction- Cholelithiasis. Chief Complaint: [] Principal diagnosis: Small bowel microperforation; enterocutaneous fistula Interval history: Patient continues to do well. He is tolerating full liquids without difficulty and is having bowel movements daily. He is afebrile and his white blood count is normal. He denies nausea and he has minimal abdominal pain. his major complaint is a nonproductive cough. Output is less than 100 cc per 24 hours. Constitutional Vitals: Vital Signs Temp Pulse Resp BP Pulse Ox O2 Del Method O2 Flow Rate 98.6 F 78 14 140/76 99 0 03/14/22 11:42 03/14/22 11:42 03/14/22 11:42 03/14/22 11:42 03/14/22 11:42 03/14/22 11:42 03/08/22 00:00 Period Temp Pulse Resp BP Sys/Maza Pulse Ox O2 Del Method O2 Flow Rate Last 24 Hr 97.9 F-98.6 F 71-108 - 132-156/72-96 93-100 Room Air-Room Air Intake and Output 03/14/22 03/14/22 03/14/22 03:59 11:59 19:59 Intake Total 600 1160 200 Output Total 725 790 Balance -125 370 200 Weight 276 lb Patient Weight 03/15/22 03:59 Weight 276 lb Intake & Output: Intake & Output 03/14/22 03/14/22 03/14/22 03:59 11:59 19:59 Intake Total 600 1160 200 Output Total 725 790 Balance -125 370 200 Weight 276 lb Intake: IV 300 200 200 Merrem 2 gm In Sodium Chloride 100 100 0.9% 100 ml @ 100 mls/hr IV Q8H [facility] Rx#:[id number] Oral 300 960 Output: Void Amount 725 790 Other: Meal Breakfast Percent of Meal Consumed 50% Feeding Ability Assist with Tray Set Up Urine Appearance Clear Clear Urine Color Yellow Yellow Urine Odor Normal Normal Stool Size Moderate Stool Color Brown Yellow Stool Consistency Loose # Voids 1 # Bowel Movements 1 Eye Eye exam: Present PERRL Pupils: Present normal accommodation ENT ENT exam: Present mucous membranes moist and normal oropharynx Neck Neck exam: Present full ROM and normal inspection Respiratory Respiratory exam: Present normal respiratory exam and CTAB Cardiovascular Cardiovascular exam: Present normal rate and rhythm, RRR, +S1 and +S2; Absent JVD GI/Abdominal GI/Abdominal exam: Present normal bowel sounds; Absent distended, guarding or tenderness Extremities Exam Extremities exam: Present full ROM, normal inspection and neurovascular intact Neurological Exam Neurological exam: Present normal gait and oriented X3; Absent motor sensory deficit Psychiatric Psychiatric exam: Present normal affect and normal mood A/P Assessment and plan (1) Intestinal fistula: Status: Acute (2) Small bowel perforation: Status: Acute (3) Cholelithiasis with choledocholithiasis: Status: Acute Plan Advanced to GI soft diet Possibly decrease meropenem in 2 days Start to taper TPN Sepsis Sepsis Identified: No Time Spent With Patient Time: Total time spent is greater than 50% in coordination of care (as documented) at patient's floor/unit and/or counseling patient:
[2022-03-14] MEDS ORDERED: ACETAMINOPHEN 325 MG TABLET PO PRN (13:53)
[2022-03-14] MEDS: CALCIUM GLUCONATE IV SCH (15:53)
[2022-03-14] MEDS: [UNRECOGNIZED DRUG - OTHER] IV SCH (15:53)
[2022-03-14] MEDS: POTASSIUM CHLORIDE IV SCH (15:53)
[2022-03-14] MEDS: MVI IV SCH (15:53)
[2022-03-14] MEDS: POTASSIUM PHOSPHATE IV SCH (15:53)
[2022-03-14] MEDS: TAMSULOSIN 0.4 MG CAPSULE PO SCH (20:08)
[2022-03-14] MEDS: hydrOXYzine 25 MG TABLET PO PRN (20:08)
[2022-03-14] MEDS: traZODone HCL 50 MG TABLET PO PRN (20:08)
[2022-03-14] MEDS: MELATONIN 3 MG TABLET PO PRN (20:08)
[2022-03-15] MEDS: METOCLOPRAMIDE 10 MG/2 ML VIAL IV SCH ×3 (05:29→16:38)
[2022-03-15] MEDS: MEROPENEM 2 GM in 0.9 % SODIUM CHLORIDE 100 ML IV SCH ×3 (05:29→21:52)
[2022-03-15] MEDS: INSULIN LISPRO 1 UNIT/0.01 ML UNIT SQ SCH ×3 (05:29→16:42)
[2022-03-15] MEDS ORDERED: DEXTROSE 10 % IN WATER 1,000 ML IV SCH (06:30)
[2022-03-15 07:20] LABS: Basophils # (Auto) 0.09 K/mcL (0.00-0.30); Basophils % (Auto) 1.4 % (0.0-2.0); Eosinophils # (Auto) 0.42 K/mcL (0.00-0.70); Eosinophils % (Auto) 6.4 % (0.0-7.0); Hematocrit 29.3 % (40.1-51.0); Hemoglobin 9.2 g/dL (13.7-17.5); Lymphocytes % (Auto) 36.4 % (15.5-49.0); Mean Cell Volume 86.9 fL (80.0-100.0); Mean Corpuscular HGB Conc 31.4 g/dL (31.0-36.0); Mean Platelet Volume 9.7 fL (8.8-12.5); Monocytes # (Auto) 0.78 K/mcL (0.10-0.90); Monocytes % (Auto) 11.8 % (1.0-12.0); Neutrophils % (Auto) 43.4 % (38.0-78.0); Platelet Count 290 K/mcL (140-440); RBC 3.37 M/mcL (4.63-6.08); Red Cell Distribution Width 13.2 % (11.5-14.5); WBC 6.6 K/mcL (4.5-11.0)
--- NOTE | 2022-03-15 08:49 | Magnetic Resonance Report ---
History: Choledocholithiasis, prior stone extraction via ERCP on 02/17/22 TECHNIQUE: Multiplanar imaging was performed using multiple pulse sequences. 3-D reconstructions of the biliary tree were created. FINDINGS: The gallbladder has been removed. There is a well-circumscribed pocket of fluid in the gallbladder fossa which measures 2.4 x 3.4 cm. This has diminished in size since a prior CT done on 03/11/22.. It measured 4 cm in greatest dimension at that time. The liver is normal in size and relatively homogeneous. The intra and extrahepatic bile ducts are normal in caliber. There is a retained stone in the distal common bile duct in the head of the pancreas which measures 6 x 7 mm. Proximal to the stone, the common bile duct is 7 mm in diameter. These findings are unchanged from the prior CT. On the prior CT another stone was seen at the level of the ampulla which is no longer identified. The pancreas is normal without evidence of inflammation and the pancreatic duct is decompressed. There is a resolving postoperative seroma or hematoma anteriorly in the midline of the epigastrium. It measures 3.6 x 4.0 cm. Previously it measured 5 cm. There was a second pocket of fluid located anteriorly in the left mid abdomen which is outside the field of view on today's study. The postoperative inflammatory changes in the right rectus abdominis muscle have improved. No ascites is present. IMPRESSION: Retained 6 x 7 mm stone in the distal common bile duct which is not causing significant obstruction. Improving postoperative seromas or hematomas in the gallbladder fossa and in the midepigastrium Interpreted and Authenticated by: Girma Wyatt 03/15/22
[2022-03-15] MEDS: HEPARIN 5,000 UNIT/ML VIAL SQ SCH ×2 (08:56→21:52)
[2022-03-15] MEDS: CARVEDILOL 12.5 MG TABLET PO SCH ×2 (08:57→16:38)
[2022-03-15] MEDS: amLODIPine 5 MG TABLET PO SCH (08:57)
[2022-03-15] MEDS: VANCOMYCIN 125 MG CAPSULE PO SCH ×4 (08:57→21:53)
[2022-03-15] MEDS: NYSTATIN CRM 1 DOSE TUBE TOPICAL SCH ×3 (08:58→21:53)
[2022-03-15] MEDS: 0.9 % SODIUM CHLORIDE 10 ML SYRINGE IV SCH ×2 (08:58→21:52)
[2022-03-15] MEDS: FLUCONAZOLE 400 MG/200 ML BAG IV SCH (10:12)
[2022-03-15] MEDS: OCTREOTIDE ACETATE 100 MCG/ML VIAL SQ SCH ×3 (10:22→21:52)
--- NOTE | 2022-03-15 12:43 | General Surgery Progress Note ---
SUBJECTIVE Subjective Patient information: Note initiated : 03/15/22 at 12:36 pm Service Date, if different from initiated Date: [] Patient: Joans Noble 72 y/o M admitted on 02/18/22 for bowel obstruction- Cholelithiasis. Chief Complaint: [] Principal diagnosis: Small bowel microperforation; enterocutaneous fistula Interval history: Patient is continuing to improve. He is afebrile and he has no complaints today. He denies abdominal pain. He is tolerated 2 meals of GI soft diet without difficulty. He has had flatus but no bowel movement since yesterday. Output through wound VAC is minimal. Patient had MRCP today which shows a retained common bile duct stone. I will discuss this with NICHOLAS, Catie Toth to try to get Dr. Lindsey to perform repeat ERCP early next week. TPN is being tapered. Meropenem will be discontinued and he will be started on oral Levaquin daily. He can be continued on oral fluconazole. Constitutional Vitals: Vital Signs Temp Pulse Resp BP Pulse Ox O2 Del Method O2 Flow Rate 97.7 F 76 16 121/72 98 0 03/15/22 08:00 03/15/22 08:00 03/15/22 08:00 03/15/22 08:00 03/15/22 08:00 03/15/22 08:00 03/08/22 00:00 Period Temp Pulse Resp BP Sys/Maza Pulse Ox O2 Del Method O2 Flow Rate Last 24 Hr 97.7 F-98.4 F 75-84 16-18 121-158/72-80 95-99 Room Air-Room Air Intake and Output 03/15/22 03/15/22 03/15/22 03:59 11:59 19:59 Intake Total 300 160 200 Output Total 633 450 Balance -333 -290 200 Intake & Output: Intake & Output 03/15/22 03/15/22 03/15/22 03:59 11:59 19:59 Intake Total 300 160 200 Output Total 633 450 Balance -333 -290 200 Intake: IV 100 100 200 Merrem 2 gm In Sodium Chloride 100 100 0.9% 100 ml @ 100 mls/hr IV Q8H [facility] Rx#:[id number] Oral 200 IV - Manual Only 60 Output: Drainage 8 Medial Abdomen TREVER Drain 8 Void Amount 625 450 Other: Urine Appearance Clear Clear Urine Color Yellow Dark Yellow Urine Odor Normal Strong Head Head exam: Present atraumatic, normal inspection and normocephalic Eye Eye exam: Present normal appearance and PERRL ENT ENT exam: Present normal external ear exam and normal oropharynx Neck Neck exam: Present full ROM and normal inspection; Absent tenderness Respiratory Respiratory exam: Present normal respiratory exam and CTAB Cardiovascular Cardiovascular exam: Present normal rate and rhythm, RRR, +S1 and +S2; Absent JVD GI/Abdominal GI/Abdominal exam: Present normal bowel sounds and soft; Absent distended or tenderness Extremities Exam Extremities exam: Present normal inspection and neurovascular intact Neurological Exam Neurological exam: Present alert, normal gait and oriented X3; Absent motor sens ory deficit Psychiatric Psychiatric exam: Present normal affect and normal mood A/P Assessment and plan (1) Intestinal fistula: Status: Acute (2) Small bowel perforation: Status: Acute (3) Stage 1 acute kidney injury: Status: Acute (4) Cholelithiasis with choledocholithiasis: Status: Acute Sepsis Sepsis Identified: No Narrative A/P Narrative: Taper TPN off Continue GI soft diet Discontinue meropenem and start oral Levaquin Oral fluconazole Repeat GI consult for follow-up ERCP early next week. Time Spent With Patient Time: Total time spent is greater than 50% in coordination of care (as documented) at patient's floor/unit and/or counseling patient:
[2022-03-15] MEDS: ALPRAZolam 0.5 MG TABLET PO PRN (14:30)
--- NOTE | 2022-03-15 14:36 | Event Note ---
Event Note Event Note: Patient did not want to be evaluated by hospitalist service. Case discussed with Dr. Stephens. Hospitalist service signing off. Further care/management/discharge planning per Dr. Stephens surgery
[2022-03-15] MEDS ORDERED: POTASSIUM PHOSPHATE IV SCH (15:00)
[2022-03-15] MEDS ORDERED: CALCIUM GLUCONATE IV SCH (15:00)
[2022-03-15] MEDS ORDERED: [UNRECOGNIZED DRUG - OTHER] IV SCH (15:00)
[2022-03-15] MEDS ORDERED: POTASSIUM CHLORIDE IV SCH (15:00)
[2022-03-15] MEDS: IPRATROPIUM/ALBUTEROL 3 ML AMPUL.NEB NEB PRN (15:18)
[2022-03-15] MEDS: SCOPOLAMINE 1 PATCH PATCH TOPICAL SCH (16:37)
[2022-03-15] MEDS ORDERED: ALTEPLASE 2 MG VIAL IV ONE (17:35)
[2022-03-15] MEDS: guaiFENesin 600 MG TAB.SR.12H PO PRN (18:56)
[2022-03-15] MEDS: TAMSULOSIN 0.4 MG CAPSULE PO SCH (21:53)
[2022-03-15] MEDS: hydrOXYzine 25 MG TABLET PO PRN (21:53)
[2022-03-15] MEDS: traZODone HCL 50 MG TABLET PO PRN (21:53)
[2022-03-15] MEDS: MELATONIN 3 MG TABLET PO PRN (21:53)
[2022-03-15] MEDS: SUCRETS LOZENGE PO PRN (21:53)
[2022-03-16] MEDS: 0.9 % SODIUM CHLORIDE 10 ML SYRINGE IV PRN ×2 (00:06→05:29)
[2022-03-16] MEDS: INSULIN LISPRO 1 UNIT/0.01 ML UNIT SQ SCH ×5 (00:06→20:04)
[2022-03-16] MEDS: METOCLOPRAMIDE 10 MG/2 ML VIAL IV SCH ×4 (00:06→16:26)
[2022-03-16] MEDS: SUCRETS LOZENGE PO PRN ×3 (00:07→20:20)
[2022-03-16] MEDS: oxyCODONE HCL 5 MG TABLET PO PRN (00:09)
[2022-03-16] MEDS: guaiFENesin 600 MG TAB.SR.12H PO PRN ×2 (03:00→20:20)
[2022-03-16] MEDS: MEROPENEM 2 GM in 0.9 % SODIUM CHLORIDE 100 ML IV SCH (05:29)
[2022-03-16] MEDS: HEPARIN 5,000 UNIT/ML VIAL SQ SCH ×2 (08:37→20:19)
[2022-03-16] MEDS: CARVEDILOL 12.5 MG TABLET PO SCH ×2 (08:37→16:26)
[2022-03-16] MEDS: amLODIPine 5 MG TABLET PO SCH (08:38)
[2022-03-16] MEDS: VANCOMYCIN 125 MG CAPSULE PO SCH (08:38)
[2022-03-16] MEDS: OCTREOTIDE ACETATE 100 MCG/ML VIAL SQ SCH ×3 (08:38→20:19)
[2022-03-16] MEDS: NYSTATIN CRM 1 DOSE TUBE TOPICAL SCH ×3 (08:39→20:20)
[2022-03-16] MEDS: FLUCONAZOLE 400 MG/200 ML BAG IV SCH (08:39)
[2022-03-16] MEDS: 0.9 % SODIUM CHLORIDE 10 ML SYRINGE IV SCH ×2 (08:40→20:18)
--- NOTE | 2022-03-16 12:58 | General Surgery Progress Note ---
SUBJECTIVE Subjective Patient information: Note initiated : 03/16/22 at 12:54 pm Service Date, if different from initiated Date: [] Patient: Jonas Noble 72 y/o M admitted on 02/18/22 for bowel obstruction- Cholelithiasis. Chief Complaint: [] Principal diagnosis: Small bowel microperforation; enterocutaneous fistula Interval history: Patient continues to improve. He remains afebrile. He still has a large volume of purulent drainage from the right side of his abdominal incision. The remainder of the incision is granulating in well and has no drainage. He is tolerating regular diet so his TPN is discontinued. Cultures of abdominal wall drainage remains negative except for fungus. Patient counseled for debridement of incision on the right side. This will be performed under MAC. Constitutional Vitals: Vital Signs Temp Pulse Resp BP Pulse Ox O2 Del Method O2 Flow Rate 98.0 F 78 18 135/75 99 0 03/16/22 08:00 03/16/22 08:00 03/16/22 08:00 03/16/22 08:00 03/16/22 08:00 03/16/22 08:00 03/08/22 00:00 Period Temp Pulse Resp BP Sys/Maza Pulse Ox O2 Del Method O2 Flow Rate Last 24 Hr 97.3 F-98.3 F 73-79 16-20 112-146/68-75 96-99 Room Air-Room Air Intake and Output 03/16/22 03/16/22 03/16/22 03:59 11:59 19:59 Intake Total 400 300 Output Total 775 155 Balance -375 145 Intake & Output: Intake & Output 03/16/22 03/16/22 03/16/22 03:59 11:59 19:59 Intake Total 400 300 Output Total 775 155 Balance -375 145 Intake: IV 100 300 Merrem 2 gm In Sodium Chloride 100 100 0.9% 100 ml @ 100 mls/hr IV Q8H [facility] Rx#:[id number] Oral 300 Output: Drainage 5 Medial Abdomen TREVER Drain 5 Void Amount 775 150 Other: Urine Appearance Clear Urine Color Yellow Stool Size Moderate Stool Color Brown Stool Consistency Soft Loose # Bowel Movements 1 Head Head exam: Present atraumatic, normal inspection and normocephalic Eye Eye exam: Present normal appearance and PERRL ENT ENT exam: Present normal external ear exam and normal oropharynx Neck Neck exam: Present full ROM and normal inspection; Absent tenderness Respiratory Respiratory exam: Present normal respiratory exam and CTAB Cardiovascular Cardiovascular exam: Present normal rate and rhythm, RRR, +S1 and +S2; Absent JVD GI/Abdominal GI/Abdominal exam: Present normal bowel sounds and soft; Absent distended or te nderness Additional comments: Purulent drainage from right side of incision. Extremities Exam Extremities exam: Present normal inspection and neurovascular intact Neurological Exam Neurological exam: Present alert, normal gait and oriented X3; Absent motor sensory deficit Psychiatric Psychiatric exam: Present normal affect and normal mood A/P Assessment and plan (1) Choledocholithiasis: Status: Acute (2) Intestinal fistula: Status: Acute (3) Small bowel perforation: Status: Acute (4) Postoperative ileus: Status: Acute (5) Abdominal wall abscess: Status: Acute Plan Patient counseled for debridement of abdominal wall in the morning Meropenem discontinued Diflucan discontinued Patient will need to have ERCP performed by Dr. ANSARI when he returns next week Sepsis Sepsis Identified: No Time Spent With Patient Time: Total time spent is greater than 50% in coordination of care (as documented) at patient's floor/unit and/or counseling patient:
[2022-03-16] MEDS ORDERED: DEXTROSE 50% 50 ML VIAL IV PRN (18:25)
[2022-03-16] MEDS ORDERED: DEXTROSE 31 GM ORAL.SUSP PO PRN (18:25)
[2022-03-16] MEDS: TAMSULOSIN 0.4 MG CAPSULE PO SCH (20:20)
[2022-03-16] MEDS: traZODone HCL 50 MG TABLET PO PRN (20:20)
[2022-03-16] MEDS: hydrOXYzine 25 MG TABLET PO PRN (20:20)
[2022-03-16] MEDS: MELATONIN 3 MG TABLET PO PRN (20:20)
[2022-03-17] MEDS: SUCRETS LOZENGE PO PRN ×2 (00:52→23:50)
[2022-03-17] MEDS: METOCLOPRAMIDE 10 MG/2 ML VIAL IV SCH ×5 (00:52→23:34)
[2022-03-17] MEDS: 0.9 % SODIUM CHLORIDE 10 ML SYRINGE IV PRN ×2 (00:52→04:58)
[2022-03-17 07:00] LABS: Basophils % (Auto) 1.4 % (0.0-2.0); Eosinophils # (Auto) 0.37 K/mcL (0.00-0.70); Eosinophils % (Auto) 5.2 % (0.0-7.0); Hematocrit 31.3 % (40.1-51.0); Hemoglobin 10.1 g/dL (13.7-17.5); Lymphocytes # (Auto) 2.74 K/mcL (1.50-4.80); Lymphocytes % (Auto) 38.8 % (15.5-49.0); Mean Cell Volume 86.7 fL (80.0-100.0); Mean Corpuscular HGB Conc 32.3 g/dL (31.0-36.0); Mean Platelet Volume 9.9 fL (8.8-12.5); Monocytes # (Auto) 0.77 K/mcL (0.10-0.90); Monocytes % (Auto) 10.9 % (1.0-12.0); Neutrophils % (Auto) 42.9 % (38.0-78.0); Platelet Count 307 K/mcL (140-440); RBC 3.61 M/mcL (4.63-6.08); Red Cell Distribution Width 13.2 % (11.5-14.5); WBC 7.1 K/mcL (4.5-11.0)
[2022-03-17 07:39] LABS: ALT/SGPT 39 U/L (<40); AST/SGOT 39 U/L (<40); Albumin 2.6 gm/dL (3.2-5.2); Albumin/Globulin Ratio 0.6 (1.0-2.3); Alkaline Phosphatase 148 U/L (39-117); Bilirubin,Direct < 0.2 mg/dL (0-0.3); Bilirubin,Total 0.6 mg/dL (0.1-1.0); Blood Urea Nitrogen 29 mg/dL (8-23); Calcium 8.8 mg/dL (8.6-10.4); Carbon Dioxide 28 mmol/L (22-30); Chloride 103 mmol/L (96-108); Globulin 4.6 gm/dL (2.2-3.7); Glomerular Filtration Rate 66; Glucose 112 mg/dL (70-105); Lactate Dehydrogenase 207 U/L (135-225); Phosphorous 3.4 mg/dL (2.5-4.5); Triglycerides 233 mg/dL (<150)
[2022-03-17] MEDS ORDERED: MAGNESIUM SULFATE 2 GM/50 ML BAG IV ONE (09:03)
[2022-03-17] MEDS ORDERED: PROPOFOL 200 MG/20 ML VIAL IV ONE (09:03)
[2022-03-17] MEDS ORDERED: fentaNYL 100 MCG/2 ML VIAL IV ONE (09:03)
[2022-03-17] MEDS ORDERED: GLYCOPYRROLATE 0.2 MG/ML VIAL IV ONE (09:03)
[2022-03-17] MEDS ORDERED: LIDOCAINE HCL/PF 100 MG/5 ML SYRINGE IV ONE (09:03)
[2022-03-17] MEDS ORDERED: KETAMINE 50 MG/ML Syringe (ANEST) IV ONE (09:03)
[2022-03-17] MEDS ORDERED: PHENYLephrine 1 MG/10 ML SYRINGE (ANEST) ONE (09:03)
[2022-03-17] MEDS ORDERED: ONDANSETRON 4 MG/2 ML VIAL ONE (09:03)
[2022-03-17] MEDS ORDERED: DEXAMETHASONE 10 MG/ML VIAL ONE (09:03)
[2022-03-17] MEDS ORDERED: HYDROmorphone 0.5 MG/0.5 ML SYRINGE IV PRN (09:25)
[2022-03-17] MEDS ORDERED: ONDANSETRON 4 MG/2 ML VIAL IV PRN (09:25)
[2022-03-17] MEDS ORDERED: LACTATED RINGERS 250 ML IV PRN (09:25)
[2022-03-17] MEDS ORDERED: METOPROLOL TARTRATE 5 MG/5 ML VIAL IV PRN (09:25)
[2022-03-17] MEDS ORDERED: ACETAMINOPHEN 1,000 MG/100 ML BAG IV ONE (09:25)
[2022-03-17] MEDS ORDERED: METHOCARBAMOL 1,000 MG/10 ML VIAL IV PRN (09:25)
[2022-03-17] MEDS ORDERED: NALOXONE HCL 0.4 MG/ML VIAL IV PRN (09:25)
[2022-03-17] MEDS ORDERED: IPRATROPIUM/ALBUTEROL 3 ML AMPUL.NEB NEB PRN (09:25)
[2022-03-17] MEDS ORDERED: LABETALOL 5 MG/ML ML IV PRN (09:25)
[2022-03-17] MEDS ORDERED: LACTATED RINGERS 1,000 ML IV SCH (09:30)
--- NOTE | 2022-03-17 10:02 | Brief Operative Note ---
Brief Operative Note Date of procedure: 03/17/22 Pre-op diagnosis: chronic abdominal wall abscess Post-op diagnosis: other (extensive fat necrosis of abdominal wall ([id number]) of abdominal wall) Procedure: wide excision of fat necrosis of abdominal wall 10 x12cm Grafts/Implants: No Anesthesia: MAC Findings: deep fat necrosis of abdominal wall extending from midline incision x12 cm and 10cm widewith preservation of fascia Complications: none Surgeon: Dominguez Stephens Estimated blood loss (cc): 15 Specimens Removed/Pathology: other (fragments of fat necrosis) Condition: stable Disposition: PACU
[2022-03-17] MEDS: fentaNYL 100 MCG/2 ML VIAL IV PRN ×2 (10:15→10:22)
[2022-03-17] MEDS: HEPARIN 5,000 UNIT/ML VIAL SQ SCH ×2 (11:10→21:34)
[2022-03-17] MEDS: amLODIPine 5 MG TABLET PO SCH (11:14)
[2022-03-17] MEDS: CARVEDILOL 12.5 MG TABLET PO SCH ×2 (11:15→17:11)
[2022-03-17] MEDS: INSULIN LISPRO 1 UNIT/0.01 ML UNIT SQ SCH ×4 (11:20→20:33)
[2022-03-17] MEDS ORDERED: FAMOTIDINE/PF 20 MG/2 ML VIAL IV ONE (11:38)
[2022-03-17] MEDS: OCTREOTIDE ACETATE 100 MCG/ML VIAL SQ SCH ×3 (11:44→21:34)
[2022-03-17] MEDS: NYSTATIN CRM 1 DOSE TUBE TOPICAL SCH ×3 (11:53→20:33)
[2022-03-17] MEDS: 0.9 % SODIUM CHLORIDE 10 ML SYRINGE IV SCH (11:55)
[2022-03-17] MEDS: MELATONIN 3 MG TABLET PO PRN (21:34)
[2022-03-17] MEDS: TAMSULOSIN 0.4 MG CAPSULE PO SCH (21:35)
[2022-03-17] MEDS: traZODone HCL 50 MG TABLET PO PRN (21:35)
[2022-03-18] MEDS: METOCLOPRAMIDE 10 MG/2 ML VIAL IV SCH ×4 (05:12→23:23)
[2022-03-18] MEDS: guaiFENesin 600 MG TAB.SR.12H PO PRN (05:13)
[2022-03-18] MEDS: INSULIN LISPRO 1 UNIT/0.01 ML UNIT SQ SCH ×4 (07:08→21:50)
[2022-03-18] MEDS: CARVEDILOL 12.5 MG TABLET PO SCH ×2 (07:58→17:09)
[2022-03-18] MEDS: NYSTATIN CRM 1 DOSE TUBE TOPICAL SCH ×3 (08:00→21:50)
[2022-03-18] MEDS: HEPARIN 5,000 UNIT/ML VIAL SQ SCH ×2 (08:15→21:49)
[2022-03-18] MEDS: amLODIPine 5 MG TABLET PO SCH (08:17)
[2022-03-18] MEDS: OCTREOTIDE ACETATE 100 MCG/ML VIAL SQ SCH ×3 (11:21→21:49)
[2022-03-18 16:09] LABS: Basophils # (Auto) 0.01 K/mcL (0.00-0.30); Basophils % (Auto) 0.1 % (0.0-2.0); Eosinophils # (Auto) 0 K/mcL (0.00-0.70); Eosinophils % (Auto) 0 % (0.0-7.0); Hematocrit 31.6 % (40.1-51.0); Lymphocytes # (Auto) 2.04 K/mcL (1.50-4.80); Lymphocytes % (Auto) 20.4 % (15.5-49.0); Mean Cell Volume 87.5 fL (80.0-100.0); Mean Corpuscular HGB Conc 31.6 g/dL (31.0-36.0); Mean Platelet Volume 9.4 fL (8.8-12.5); Monocytes # (Auto) 0.66 K/mcL (0.10-0.90); Monocytes % (Auto) 6.6 % (1.0-12.0); Neutrophils % (Auto) 72.5 % (38.0-78.0); Platelet Count 323 K/mcL (140-440); RBC 3.61 M/mcL (4.63-6.08); Red Cell Distribution Width 13.1 % (11.5-14.5)
[2022-03-18] MEDS: TAMSULOSIN 0.4 MG CAPSULE PO SCH (21:49)
[2022-03-18] MEDS: MELATONIN 3 MG TABLET PO PRN (23:23)
[2022-03-18] MEDS: traZODone HCL 50 MG TABLET PO PRN (23:23)
[2022-03-19] MEDS: METOCLOPRAMIDE 10 MG/2 ML VIAL IV SCH ×3 (05:28→16:57)
[2022-03-19] MEDS: INSULIN LISPRO 1 UNIT/0.01 ML UNIT SQ SCH ×4 (07:12→21:28)
[2022-03-19] MEDS: CARVEDILOL 12.5 MG TABLET PO SCH ×2 (09:14→16:37)
[2022-03-19] MEDS: amLODIPine 5 MG TABLET PO SCH (09:15)
[2022-03-19] MEDS: HEPARIN 5,000 UNIT/ML VIAL SQ SCH ×3 (09:15→21:28)
[2022-03-19] MEDS: NYSTATIN CRM 1 DOSE TUBE TOPICAL SCH ×3 (09:15→21:34)
[2022-03-19] MEDS: OCTREOTIDE ACETATE 100 MCG/ML VIAL SQ SCH ×3 (09:16→21:29)
[2022-03-19 09:32] LABS: Basophils # (Auto) 0.04 K/mcL (0.00-0.30); Basophils % (Auto) 0.5 % (0.0-2.0); Eosinophils # (Auto) 0.03 K/mcL (0.00-0.70); Eosinophils % (Auto) 0.4 % (0.0-7.0); Hematocrit 32.4 % (40.1-51.0); Hemoglobin 10.3 g/dL (13.7-17.5); Lymphocytes # (Auto) 2.78 K/mcL (1.50-4.80); Lymphocytes % (Auto) 33.3 % (15.5-49.0); Mean Cell Volume 85.9 fL (80.0-100.0); Mean Corpuscular HGB Conc 31.8 g/dL (31.0-36.0); Mean Platelet Volume 9.3 fL (8.8-12.5); Monocytes # (Auto) 0.36 K/mcL (0.10-0.90); Monocytes % (Auto) 4.3 % (1.0-12.0); Neutrophils % (Auto) 61.1 % (38.0-78.0); Platelet Count 289 K/mcL (140-440); RBC 3.77 M/mcL (4.63-6.08); Red Cell Distribution Width 13.3 % (11.5-14.5); WBC 8.3 K/mcL (4.5-11.0)
[2022-03-19 09:56] LABS: ALT/SGPT 42 U/L (<40); AST/SGOT 32 U/L (<40); Albumin/Globulin Ratio 0.7 (1.0-2.3); Alkaline Phosphatase 140 U/L (39-117); Bilirubin,Direct 0.2 mg/dL (<0.3); Bilirubin,Total 0.5 mg/dL (0.1-1.0); Blood Urea Nitrogen 39 mg/dL (8-23); Calcium 8.6 mg/dL (8.6-10.4); Carbon Dioxide 24 mmol/L (22-30); Chloride 105 mmol/L (96-108); Globulin 4.2 gm/dL (2.2-3.7); Glomerular Filtration Rate 54; Glucose 164 mg/dL (70-105); Lactate Dehydrogenase 180 U/L (135-225); Phosphorous 3.3 mg/dL (2.5-4.5); Triglycerides 209 mg/dL (<150); Uric Acid 7.3 mg/dL (2.5-8.0)
--- NOTE | 2022-03-19 15:28 | General Surgery Progress Note ---
SUBJECTIVE Subjective Patient information: Note initiated : 03/19/22 at 3:24 pm Service Date, if different from initiated Date: [] Patient: Jonas Noble 72 y/o M admitted on 02/18/22 for bowel obstruction- Cholelithiasis. Chief Complaint: [] Principal diagnosis: Small bowel microperforation; enterocutaneous fistula Interval history: Patient is improving on a daily basis. His recent operative site looks good without any swelling or erythema. Drainage is decreasing nicely. He has good active bowel sounds and is having regular bowel movements. He is tolerating diet without difficulty. Constitutional Vitals: Vital Signs Temp Pulse Resp BP Pulse Ox O2 Del Method O2 Flow Rate 97.7 F 67 12 125/68 97 2 03/19/22 12:00 03/19/22 12:00 03/19/22 12:00 03/19/22 12:00 03/19/22 12:00 03/19/22 12:00 03/17/22 11:43 Period Temp Pulse Resp BP Sys/Maza Pulse Ox O2 Del Method O2 Flow Rate Last 24 Hr 97.7 F-98.8 F 54-71 12-20 99-125/50-88 93-97 Room Air-Room Air Intake and Output 03/19/22 03/19/22 03/19/22 03:59 11:59 19:59 Intake Total 840 Output Total 450 704 Balance -450 136 Weight 268 lb 12.8 oz Intake & Output: Intake & Output 03/19/22 03/19/22 03/19/22 03:59 11:59 19:59 Intake Total 840 Output Total 450 704 Balance -450 136 Weight 268 lb 12.8 oz Intake: Oral 840 Output: Drainage 3 Right Abdomen 3 Void Amount 450 700 # of times incontinent of urine 1 Other: Meal Breakfast Percent of Meal Consumed 100% Feeding Ability Assist with Tray Set Up Urine Appearance Clear Clear Urine Color Yellow Yellow Stool Size Small Large Stool Color Brown Brown Yellow Stool Consistency Soft Loose Loose # Bowel Movements 1 1 Respiratory Respiratory exam: Present normal respiratory exam and CTAB Cardiovascular Cardiovascular exam: Present normal rate and rhythm, RRR, +S1 and +S2 GI/Abdominal GI/Abdominal exam: Present normal bowel sounds, soft and tenderness (Mild tenderness around right lateral operative site); Absent distended or mass Extremities Exam Extremities exam: Present normal inspection and neurovascular intact Neurological Exam Neurological exam: Present alert, oriented X3 and reflexes normal Psychiatric Psychiatric exam: Present normal affect and normal mood A/P Assessment and plan (1) Abdominal wall abscess: Status: Acute (2) Choledocholithiasis: Status: Acute (3) Intestinal fistula: Status: Acute (4) Small bowel perforation: Status: Acute Plan Plan is for evaluation of abdominal wound on the right side tomorrow Continue present therapy Sepsis Sepsis Identified: No Time Spent With Patient Time: Total time spent is greater than 50% in coordination of care (as documented) at patient's floor/unit and/or counseling patient:
[2022-03-19] MEDS: TAMSULOSIN 0.4 MG CAPSULE PO SCH (21:34)
[2022-03-20] MEDS: METOCLOPRAMIDE 10 MG/2 ML VIAL IV SCH ×4 (01:41→16:18)
[2022-03-20] MEDS: INSULIN LISPRO 1 UNIT/0.01 ML UNIT SQ SCH ×4 (06:54→19:10)
[2022-03-20] MEDS: CARVEDILOL 12.5 MG TABLET PO SCH ×2 (06:54→16:17)
[2022-03-20] MEDS: OCTREOTIDE ACETATE 100 MCG/ML VIAL SQ SCH ×3 (08:05→19:10)
[2022-03-20] MEDS: HEPARIN 5,000 UNIT/ML VIAL SQ SCH ×2 (08:05→19:09)
[2022-03-20] MEDS: amLODIPine 5 MG TABLET PO SCH (08:05)
[2022-03-20] MEDS: NYSTATIN CRM 1 DOSE TUBE TOPICAL SCH ×3 (08:05→19:10)
--- NOTE | 2022-03-20 12:18 | General Surgery Progress Note ---
SUBJECTIVE Subjective Patient information: Note initiated : 03/20/22 at 12:14 pm Service Date, if different from initiated Date: [] Patient: Jonas Noble 72 y/o M admitted on 02/18/22 for bowel obstruction- Cholelithiasis. Chief Complaint: [] Principal diagnosis: Small bowel microperforation; enterocutaneous fistula Interval history: Patient is doing well. He is close to being back to her normal status. He does not have any pain. Discussed with him the need for ERCP repeat in the morning. Constitutional Vitals: Vital Signs Temp Pulse Resp BP Pulse Ox O2 Del Method O2 Flow Rate 98.4 F 69 14 134/66 97 2 03/20/22 11:30 03/20/22 11:30 03/20/22 11:30 03/20/22 11:30 03/20/22 11:30 03/20/22 11:30 03/17/22 11:43 Period Temp Pulse Resp BP Sys/Maza Pulse Ox O2 Del Method O2 Flow Rate Last 24 Hr 97.9 F-98.8 F 66-71 14-18 118-146/58-78 96-97 Room Air-Room Air Intake and Output 03/20/22 03/20/22 03/20/22 03:59 11:59 19:59 Intake Total 640 Output Total 1 750 Balance -1 -110 Intake & Output: Intake & Output 03/20/22 03/20/22 03/20/22 03:59 11:59 19:59 Intake Total 640 Output Total 1 750 Balance -1 -110 Intake: Oral 640 Output: Void Amount 750 # of times incontinent of urine 1 Other: Meal Breakfast Percent of Meal Consumed 100% Feeding Ability Independent Urine Appearance Clear Clear Urine Color Yellow Yellow Stool Size Small Large Stool Color Brown Brown Stool Consistency Soft Soft # Bowel Movements 1 Neck Neck exam: Present normal inspection; Absent tenderness Respiratory Respiratory exam: Present normal respiratory exam and CTAB Cardiovascular Cardiovascular exam: Present normal rate and rhythm, RRR, +S1 and +S2; Absent JVD GI/Abdominal GI/Abdominal exam: Present normal bowel sounds and soft; Absent distended Additional comments: The midline incision continues to granulate in. The right lateral incision has a clean base with good granulation and no drainage. Wound VAC was changed Extremities Exam Extremities exam: Present normal inspection and neurovascular intact Neurological Exam Neurological exam: Present alert and oriented X3; Absent motor sensory deficit Psychiatric Psychiatric exam: Present normal affect and normal mood A/P Assessment and plan (1) Abdominal wall abscess: Status: Acute (2) Choledocholithiasis: Status: Acute (3) Intestinal fistula: Status: Acute (4) Small bowel perforation: Status: Acute Plan Patient will hopefully have ERCP tomorrow with plans for discharge home with home health on Monday Time Spent With Patient Time: Total time spent is greater than 50% in coordination of care (as documented) at patient's floor/unit and/or counseling patient:
[2022-03-20 12:34] LABS: POC INR 1.4 (0.8-1.2); POC Pro Time 16.5 (11.9-14.5)
[2022-03-20] MEDS: TAMSULOSIN 0.4 MG CAPSULE PO SCH (19:06)
[2022-03-20] MEDS: hydrOXYzine 25 MG TABLET PO PRN (19:06)
[2022-03-20] MEDS: traZODone HCL 50 MG TABLET PO PRN (19:06)
[2022-03-20] MEDS: ALPRAZolam 0.5 MG TABLET PO PRN (19:07)
[2022-03-21] MEDS: METOCLOPRAMIDE 10 MG/2 ML VIAL IV SCH ×4 (01:00→16:39)
[2022-03-21 07:03] LABS: Basophils # (Auto) 0.07 K/mcL (0.00-0.30); Basophils % (Auto) 0.9 % (0.0-2.0); Eosinophils # (Auto) 0.14 K/mcL (0.00-0.70); Eosinophils % (Auto) 1.7 % (0.0-7.0); Hematocrit 36.6 % (40.1-51.0); Hemoglobin 11.1 g/dL (13.7-17.5); Lymphocytes # (Auto) 2.92 K/mcL (1.50-4.80); Lymphocytes % (Auto) 36.5 % (15.5-49.0); Mean Cell Volume 89.9 fL (80.0-100.0); Mean Corpuscular HGB Conc 30.3 g/dL (31.0-36.0); Mean Platelet Volume 9.1 fL (8.8-12.5); Monocytes # (Auto) 0.74 K/mcL (0.10-0.90); Monocytes % (Auto) 9.2 % (1.0-12.0); Neutrophils % (Auto) 51.2 % (38.0-78.0); Platelet Count 260 K/mcL (140-440); RBC 4.07 M/mcL (4.63-6.08); Red Cell Distribution Width 13.9 % (11.5-14.5)
[2022-03-21] MEDS: INSULIN LISPRO 1 UNIT/0.01 ML UNIT SQ SCH ×4 (07:10→21:26)
[2022-03-21] MEDS: CARVEDILOL 12.5 MG TABLET PO SCH ×3 (07:11→16:39)
[2022-03-21 07:28] LABS: ALT/SGPT 47 U/L (<40); AST/SGOT 35 U/L (<40); Albumin 2.9 gm/dL (3.2-5.2); Albumin/Globulin Ratio 0.7 (1.0-2.3); Alkaline Phosphatase 134 U/L (39-117); Bilirubin,Direct 0.2 mg/dL (<0.3); Bilirubin,Total 0.7 mg/dL (0.1-1.0); Blood Urea Nitrogen 32 mg/dL (8-23); Calcium 8.6 mg/dL (8.6-10.4); Carbon Dioxide 20 mmol/L (22-30); Chloride 107 mmol/L (96-108); Glomerular Filtration Rate 66; Glucose 109 mg/dL (70-105); Lactate Dehydrogenase 212 U/L (135-225); Phosphorous 3.5 mg/dL (2.5-4.5); Triglycerides 277 mg/dL (<150); Uric Acid 6.5 mg/dL (2.5-8.0)
[2022-03-21] MEDS: NYSTATIN CRM 1 DOSE TUBE TOPICAL SCH ×3 (07:56→21:26)
[2022-03-21] MEDS: HEPARIN 5,000 UNIT/ML VIAL SQ SCH ×2 (07:56→21:26)
[2022-03-21] MEDS: OCTREOTIDE ACETATE 100 MCG/ML VIAL SQ SCH ×3 (07:57→21:26)
[2022-03-21] MEDS: amLODIPine 5 MG TABLET PO SCH (08:04)
--- NOTE | 2022-03-21 11:36 | General Surgery Progress Note ---
SUBJECTIVE Subjective Patient information: Note initiated : 03/21/22 at 11:32 am Service Date, if different from initiated Date: [] Patient: Jonas Noble 72 y/o M admitted on 02/18/22 for bowel obstruction- Cholelithiasis. Chief Complaint: [] Principal diagnosis: Small bowel microperforation; enterocutaneous fistula Interval history: Patient is doing well. He has minimal abdominal discomfort. He is agitated because of his longstanding but otherwise has no complaints. He is scheduled for ERCP to be performed later today. White blood count is 8000, hemoglobin 11.1, hematocrit 36.6. Constitutional Vitals: Vital Signs Temp Pulse Resp BP Pulse Ox O2 Del Method O2 Flow Rate 99.0 F 73 20 148/86 98 2 03/21/22 07:11 03/21/22 07:11 03/21/22 07:11 03/21/22 08:08 03/21/22 07:11 03/21/22 07:11 03/17/22 11:43 Period Temp Pulse Resp BP Sys/Maza Pulse Ox O2 Del Method O2 Flow Rate Last 24 Hr 97.3 F-99.0 F 72-89 16-20 121-151/61-86 96-99 Room Air-Room Air Intake and Output 03/20/22 03/21/22 03/21/22 19:59 03:59 11:59 Output Total 575 400 306 Balance -575 -400 -306 Weight 265 lb 1.6 oz Intake & Output: Intake & Output 03/20/22 03/21/22 03/21/22 19:59 03:59 11:59 Output Total 575 400 306 Balance -575 -400 -306 Weight 265 lb 1.6 oz Output: Drainage 6 Medial Abdomen TREVER Drain 6 Void Amount 575 400 300 Other: Meal Lunch Percent of Meal Consumed 75% Feeding Ability Independent Urine Appearance Clear Clear Clear Urine Color Dark Yellow Dark Yellow Yellow Urine Odor Normal Normal Stool Size Small Stool Color Brown Stool Consistency Soft # Bowel Movements 1 ENT ENT exam: Present mucous membranes moist, normal external ear exam and normal oropharynx Neck Neck exam: Present full ROM and normal inspection; Absent tenderness Respiratory Respiratory exam: Present normal respiratory exam and CTAB Cardiovascular Cardiovascular exam: Present normal rate and rhythm, RRR, +S1 and +S2; Absent JVD GI/Abdominal GI/Abdominal exam: Present normal bowel sounds and soft; Absent distended Additional comments: Operative site is clean and there is essentially no drainage in TREVER Extremities Exam Extremities exam: Present normal inspection and neurovascular intact Neurological Exam Neurological exam: Present normal gait and oriented X3; Absent motor sensory deficit Psychiatric Psychiatric exam: Present agitated and anxious A/P Assessment and plan (1) Abdominal wall abscess: Status: Acute (2) Choledocholithiasis: Status: Acute (3) Intestinal fistula: Status: Acute (4) Small bowel perforation: Status: Acute Plan Patient is doing well. He is scheduled for ERCP later today. Time Spent With Patient Time: Total time spent is greater than 50% in coordination of care (as documented) at patient's floor/unit and/or counseling patient:
[2022-03-21] MEDS ORDERED: INDOMETHACIN 25 MG CAPSULE PO SCH (13:22)
[2022-03-21] MEDS ORDERED: NITROGLYCERIN 0.6 MG/HR PATCH TOPICAL SCH (13:30)
[2022-03-21] MEDS ORDERED: LACTATED RINGERS 250 ML IV SCH ×2 (13:30→13:36)
[2022-03-21] MEDS ORDERED: LACTATED RINGERS 500 ML IV SCH (13:38)
[2022-03-21] MEDS ORDERED: MIDAZOLAM 2 MG/2 ML VIAL IV ONE (14:02)
[2022-03-21] MEDS ORDERED: PROPOFOL 200 MG/20 ML VIAL IV ONE (14:02)
[2022-03-21] MEDS: LACTATED RINGERS 25 ML IV SCH (14:16)
[2022-03-21] MEDS: LACTATED RINGERS 1,000 ML IV SCH ×2 (14:50→21:01)
[2022-03-21] MEDS: oxyCODONE HCL 5 MG TABLET PO PRN (18:32)
[2022-03-21] MEDS: hydrOXYzine 25 MG TABLET PO PRN (19:47)
[2022-03-21] MEDS: traZODone HCL 50 MG TABLET PO PRN (19:47)
[2022-03-21] MEDS: MELATONIN 3 MG TABLET PO PRN (19:47)
[2022-03-21] MEDS: TAMSULOSIN 0.4 MG CAPSULE PO SCH (19:47)
[2022-03-22] MEDS: METOCLOPRAMIDE 10 MG/2 ML VIAL IV SCH ×3 (00:15→11:18)
[2022-03-22] MEDS: LACTATED RINGERS 1,000 ML IV SCH (05:01)
[2022-03-22] MEDS: INSULIN LISPRO 1 UNIT/0.01 ML UNIT SQ SCH ×2 (07:59→11:17)
[2022-03-22 09:36] LABS: ALT/SGPT 44 U/L (<40); AST/SGOT 32 U/L (<40); Albumin 2.8 gm/dL (3.2-5.2); Albumin/Globulin Ratio 0.7 (1.0-2.3); Alkaline Phosphatase 132 U/L (39-117); Bilirubin,Total 1.3 mg/dL (0.1-1.0); Blood Urea Nitrogen 28 mg/dL (8-23); Calcium 8.7 mg/dL (8.6-10.4); Carbon Dioxide 23 mmol/L (22-30); Chloride 104 mmol/L (96-108); Globulin 3.9 gm/dL (2.2-3.7); Glomerular Filtration Rate 66; Glucose 105 mg/dL (70-105)
[2022-03-22] MEDS: HEPARIN 5,000 UNIT/ML VIAL SQ SCH (11:15)
[2022-03-22] MEDS: CARVEDILOL 12.5 MG TABLET PO SCH (11:15)
[2022-03-22] MEDS: OCTREOTIDE ACETATE 100 MCG/ML VIAL SQ SCH (11:16)
[2022-03-22] MEDS: NYSTATIN CRM 1 DOSE TUBE TOPICAL SCH (11:16)
[2022-03-22] MEDS: amLODIPine 5 MG TABLET PO SCH (11:16)
--- NOTE | 2022-03-22 13:09 | Discharge Summary ---
Discharge Provider Provider IMPORTANT FOLLOW-UP INFORMATION FOR PCP: Patient information: Note initiated : 03/22/22 at 12:44 pm Service Date, if different from initiated Date: [] Patient: Jonas Noble 72 y/o M admitted on 02/18/22 for bowel obstruction-Cholelithiasis. Chief Complaint: [] Date of admission: 02/18/22 14:52 Discharge date: 03/22/22 Primary care physician: Alonzo Yee DO Admitting clinician: Dominguez Stephens Attending physician on admission: Dominguez Stephens Consults: 02/15/22 Consult to Physician [CONS] Stat Comment: FOR ERCP;;; CBD STONE AND JAUNDICE Consulting Provider: Arnold Lindsey Reason For Exam: Physician to Consult 02/15/22 18:44 Consult to Physician [CONS] Stat Comment: Consulting Provider: Dominguez Stephens Reason For Exam: Physician to Consult 02/20/22 07:09 Consult to Physician [CONS] Stat Comment: Consulting Provider: Jayant Rai Reason For Exam: Physician to Consult 03/15/22 12:47 Consult to Physician [CONS] Routine Comment: needs re-evaluation for f/u ERCP due to CBD STONE Consulting Provider: Arnold Lindsey Reason For Exam: Physician to Consult Attending physician on discharge: Dominguez Stephens Discharging clinician: Dmoinguez Stephens COURSE Hospital Course Hospital course: 71-year-old male who presents with a 2-day history of diffuse upper abdominal pain with nausea. The pain was worse in the postprandial.. He was evaluated in the emergency room with apparent jaundice and elevated LFTs and bilirubin. Bilirubin was 7.7 and all of his LFTs were elevated. CT showed dilated common bile duct and intrahepatic ducts with a 6 mm distal common bile duct stone. He had multiple stones in the gallbladder. The patient was admitted and started on antibiotics. GI was consulted for ERCP. On 17 February ERCP was with stone extraction was done and he tolerated it well. On 18 February patient had an attempt at laparoscopic cholecystectomy but he had extensive adhesions over his entire abdomen. While the adhesions were being taken down a small enterotomy was made so an open cholecystectomy was done. He had a very small enterotomy which was closed in 2 layers. A subhepatic drain was placed. Over the next 2 days he developed increasing respiratory difficulty. He became transiently hypoxic on [address] showed a left-sided pneumonia but was negative for PE. He developed mild acute kidney injury. He was seen by hospitalist service and they instituted care. He improved over the next few days. On 23 February it was noted that he had drainage from his incision which was bilious in character. An emergency laparotomy was done and it was noted that he had 3 microperforations in small bowel which was separate from the area where his abdomen had been explored. These were punctate perfectly round perforations. The area of the closed enterotomy was healing appropriately and there was no leakage in this area. The microperforations were closed in 2 layers and a TREVER drain was placed on each side of the operative site. With 24 February he was started on TPN. He gradually improved and started having flatus and bowel movement by 26 February. TPN was continued and patient seems to be improving however on 03 March there was increased output through his wound VAC. This output was over 400 cc per 24 hours. 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 I discussed him with surgeons at [facility] who felt that nonoperative management would be the best method of care. He was started on octreotide to decreased pancreatic and liver secretions and reduce the output through this fistula. Over the next 5 days the drainage decreased to about 100 cc per 24 hours. He had regular healing of his abdominal wound with full granulation of the midline incision. The fistula output reduced to nothing however he developed some purulent dark drainage from the right side of his abdominal wall. We tried to treat this with wound VAC this was unsuccessful. Cultures of the drainage was negative for bacteria but did have fungi. Diflucan was added. At this time his TPN was discontinued and of the drainage was monitored. On 17 March it appeared that the drainage had increased so the abdominal wall was explored under anesthesia. He was found to have extensive fat necrosis in an area that measured about 10 x 12 cm. All of this was debrided back to normal tissue and wound VAC was placed in this area. A CT was done to evaluate the abdominal wall and it showed residual stones in the common bile duct. It was felt that we needed to confirm this so an MRCP was done. MRCP confirmed a residual stone in the distal duct. ERCP was performed on 21 March. Patient is clinically stable at this time. All of his drains have been removed. He is tolerating diet. All of his chemistries or back to normal. He is stable for discharge home with home health to manage his wound VAC. He will have follow-up in the office every other week until he is completely healed. 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 Recurrent common bile duct stone requiring ERCP Reason for admission: Cholelithiasis with choledocholithiasis Procedures: Diagnostic laparoscopy Open cholecystectomy Closure of small bowel enterotomy ERCP Exploratory laparotomy with drainage of microperforation of small bowel with wound VAC closure Debride abdominal wall right side due to fat necrosis Repeat ERCP with stone removal 21 March Pertinent studies/significant findings: CT of abdomen and pelvis MRCP ERCP CTA of the chest and abdomen 23 February--CT of abdomen and pelvis with IV contrast MRCP ERCP 21 March Complications: Small bowel enterotomy during laparoscopy Left-sided pneumonia Small bowel microperforation Fat necrosis of the abdominal wall Time Spent with Patient Time attestation: Total time spent providing and/or coordinating discharge services: Time spent: Greater than 30 minutes Physical Examination Vital Signs Vital signs: Temp Pulse Resp BP Pulse Ox O2 Del Method O2 Flow Rate 97.7 F 65 18 140/82 97 6 03/22/22 07:33 03/22/22 07:33 03/22/22 07:33 03/22/22 07:33 03/22/22 07:33 03/22/22 07:33 03/21/22 15:22 General physical appearance General physical exam: well developed, well nourished, no distress, no pain and obese Eyes Eye exam: PERRL and normal ocular movement; negative icteric ENT ENT exam: normal nares and normal mucosa Head Head exam IM: Present atraumatic, normal inspection and normocephalic Neck Neck exam: no masses, no bruits, trachea midline, no lymphadenopathy and no venous distension Cardiovascular Cardiovascular exam IM: Present normal rate and rhythm, RRR, +S1 and +S2; Absent JVD Respiratory Respiratory exam: normal expansion, normal respiratory effort and clear to auscultation Abdomen Abdomen: Present soft, non tender, surgical scars (Midline incision is healing and fully granulated) and wound (The excised area of his abdominal wall is clean with a full granulating base with minimal drainage) Integumentary Integumentary: Present no rash, no growths and no abnormal pigmentation Neurologic Neurologic: Present normal coordination and normal sensation Musculoskeletal Musculoskeletal: Present normal gait and normal posture Psychiatric Psychiatric: Present oriented to time, oriented to person, oriented to place, speech is normal and memory intact Discharge Plan Patient/Caregiver Discharge Instructions Activity: increase activity as tolerated Diet: Regular Diet Prescriptions: No Action tamsulosin 0.4 mg capsule 0.8 mg PO QDAY Qty: 60 5RF finasteride 5 mg tablet 5 mg PO QDAY Qty: 30 5RF Green Tea Fat Burner See Rx Instructions .ROUTE .COMPLEX Rx Instructions: Once daily; joint discomfort & inflammation foam See Rx Instructions .ROUTE .COMPLEX Rx Instructions: use as directed; Joint Restore Gummies See Rx Instructions .ROUTE .COMPLEX Rx Instructions: 1 cap by mouth QD- CBD gummies; Liquid Morning Vitamin See Rx Instructions .ROUTE .COMPLEX Rx Instructions: Once daily; acetaminophen [Tylenol Extra Strength] 500 mg tablet 500 mg PO Q6H PRN (Reason: Pain) Prostate Advance See Rx Instructions .ROUTE .COMPLEX Rx Instructions: 1 cap by mouth three times a day with meals; Gut MD See Rx Instructions .ROUTE .COMPLEX Rx Instructions: 1 cap by mouth once daily; stinging nettle root See Rx Instructions .ROUTE .COMPLEX Rx Instructions: 1 tablet by mouth once daily; pramoxine [Sarna Sensitive] 1 % lotion 1 applic topical BID diclofenac sodium [Arthritis Pain (diclofenac)] 1 % gel 2 g topical QID PRN (Reason: Pain) Rx Instructions: apply to single elbow, wrist or hand; for hand includes palm/fingers/back of hand amlodipine 10 mg tablet 10 mg PO QDAY oxybutynin chloride 5 mg tablet 5 mg PO QHS PRN (Reason: bladder spasms) Qty: 90 3RF gabapentin 300 mg capsule 300 mg PO QHS Qty: 90 3RF Prescription drug monitoring program results: PDMP not reviewed Follow Up Plan Follow up with: Alonzo Yee DO [Primary Care Provider] - Patient Disposition: Home Health Service Plan of Treatment: Wound VAC management every 3 days Prognosis: Good Rehab Potential: Good I certify that the patient requires SNF services: No Overall status at discharge: patient is progressing back to baseline Discharge Orders: Discharge Order (Routine); Ordered 03/22/22 Ordered By: Dominguez Stephens Pending Pending Pending: Resuscitation Status Do Not Resuscitate Diet Regular Diet Start MonMar 22 953 Albuterol/Ipratropium (Ipratropium/Albuterol 3 Ml Ampul.Neb) 3 ml NEB Q4HP PRN PRN Reason: Shortness Of Breath Last Admin: 03/15/22 15:18 Dose: 3 ml Documented By: Admin: 03/13/22 19:45 Dose: 3 ml Documented By: Admin: 03/13/22 17:00 Dose: 3 ml Documented By: Admin: 03/12/22 19:56 Dose: 3 ml Documented By: Admin: 03/05/22 19:58 Dose: 3 ml Documented By: Admin: 03/03/22 08:02 Dose: 3 ml Documented By: Admin: 03/02/22 18:18 Dose: 3 ml Documented By: Admin: 02/27/22 07:45 Dose: 3 ml Documented By: Admin: 02/26/22 11:38 Dose: 3 ml Documented By: Admin: 02/25/22 18:06 Dose: 3 ml Documented By: Admin: 02/25/22 12:43 Dose: 3 ml Documented By: Admin: 02/21/22 21:45 Dose: 3 ml Documented By: Admin: 02/21/22 13:50 Dose: 3 ml Documented By: RAFY Alprazolam (Alprazolam 0.5 Mg Tablet) 0.5 mg PO TIDP PRN PRN Reason: Anxiety Last Admin: 03/20/22 19:07 Dose: 0.5 mg Documented By: [email or web address] Admin: 03/15/22 14:30 Dose: 0.5 mg Documented By: Admin: 03/14/22 10:11 Dose: 0.5 mg Documented By: Admin: 03/14/22 03:23 Dose: 0.5 mg Documented By: Admin: 03/13/22 03:10 Dose: 0.5 mg Documented By: Admin: 03/11/22 14:35 Dose: 0.5 mg Documented By: Admin: 03/07/22 15:48 Dose: 0.5 mg Documented By: [email or web address] Amlodipine Besylate (Amlodipine 5 Mg Tablet) 5 mg PO DAILY [facility] Admin: 03/22/22 11:16 Dose: Not Given Documented By: Admin: 03/21/22 08:04 Dose: 5 mg Documented By: EVARISTO Co-signed By: KIARA Admin: 03/20/22 08:05 Dose: Not Given Documented By: Admin: 03/19/22 09:15 Dose: 5 mg Documented By: EVARISTO Co-signed By: ALEX Admin: 03/18/22 08:17 Dose: 5 mg Documented By: Admin: 03/17/22 11:14 Dose: 5 mg Documented By: Admin: 03/16/22 08:38 Dose: 5 mg Documented By: Admin: 03/15/22 08:57 Dose: 5 mg Documented By: Admin: 03/14/22 08:55 Dose: 5 mg Documented By: Admin: 03/13/22 08:20 Dose: 5 mg Documented By: EVARISTO Co-signed By: ZABRINA Admin: 03/12/22 08:33 Dose: 5 mg Documented By: Admin: 03/11/22 09:06 Dose: 5 mg Documented By: Admin: 03/10/22 09:47 Dose: 5 mg Documented By: Admin: 03/09/22 10:06 Dose: Not Given Documented By: Admin: 03/08/22 08:44 Dose: 5 mg Documented By: Admin: 03/07/22 08:43 Dose: 5 mg Documented By: Admin: 03/06/22 08:45 Dose: 5 mg Documented By: Admin: 03/05/22 08:42 Dose: 5 mg Documented By: Admin: 03/04/22 08:10 Dose: 5 mg Documented By: Admin: 03/03/22 09:12 Dose: 5 mg Documented By: Admin: 03/02/22 09:31 Dose: 5 mg Documented By: Admin: 03/01/22 09:07 Dose: 5 mg Documented By: Admin: 02/28/22 08:30 Dose: 5 mg Documented By: Admin: 02/27/22 09:14 Dose: 5 mg Documented By: Admin: 02/26/22 08:17 Dose: 5 mg Documented By: Admin: 02/25/22 08:34 Dose: 5 mg Documented By: JESSICA Carvedilol (Carvedilol 12.5 Mg Tablet) 25 mg PO BIDCC RODRIGUE [facility] Admin: 03/22/22 11:15 Dose: Not Given Documented By: Admin: 03/21/22 16:39 Dose: Not Given Documented By: Admin: 03/21/22 08:05 Dose: 25 mg Documented By: EVARISTO Co-signed By: KIARA Admin: 03/20/22 16:17 Dose: Not Given Documented By: Admin: 03/20/22 06:54 Dose: Not Given Documented By: Admin: 03/19/22 16:37 Dose: Not Given Documented By: Admin: 03/19/22 09:14 Dose: 25 mg Documented By: EVARISTO Co-signed By: ALEX Admin: 03/18/22 17:09 Dose: 25 mg Documented By: Admin: 03/18/22 07:58 Dose: 25 mg Documented By: Admin: 03/17/22 17:11 Dose: 25 mg Documented By: Admin: 03/17/22 11:15 Dose: 25 mg Documented By: Admin: 03/16/22 16:26 Dose: 25 mg Documented By: Admin: 03/16/22 08:37 Dose: 25 mg Documented By: Admin: 03/15/22 16:38 Dose: 25 mg Documented By: Admin: 03/15/22 08:57 Dose: 25 mg Documented By: Admin: 03/14/22 17:13 Dose: 25 mg Documented By: Admin: 03/14/22 08:55 Dose: 25 mg Documented By: Admin: 03/13/22 17:35 Dose: 25 mg Documented By: EVARISTO Co-signed By: ZABRINA Admin: 03/13/22 08:19 Dose: 25 mg Documented By: EVARISTO Co-signed By: ZABRINA Admin: 03/12/22 17:26 Dose: 25 mg Documented By: Admin: 03/12/22 07:22 Dose: 25 mg Documented By: Admin: 03/11/22 17:55 Dose: 25 mg Documented By: Admin: 03/11/22 07:47 Dose: 25 mg Documented By: Admin: 03/10/22 16:52 Dose: 25 mg Documented By: Admin: 03/10/22 07:39 Dose: 25 mg Documented By: Admin: 03/09/22 17:02 Dose: Not Given Documented By: Admin: 03/09/22 08:19 Dose: 25 mg Documented By: Co-signed By: MIRI Admin: 03/08/22 17:24 Dose: 25 mg Documented By: Admin: 03/08/22 08:44 Dose: 25 mg Documented By: Admin: 03/07/22 17:26 Dose: 25 mg Documented By: Admin: 03/07/22 08:43 Dose: 25 mg Documented By: Admin: 03/06/22 16:42 Dose: 25 mg Documented By: Admin: 03/06/22 08:45 Dose: 25 mg Documented By: Admin: 03/05/22 17:34 Dose: 25 mg Documented By: Admin: 03/05/22 07:05 Dose: 25 mg Documented By: Admin: 03/04/22 17:56 Dose: 25 mg Documented By: Admin: 03/04/22 08:10 Dose: 25 mg Documented By: Admin: 03/03/22 16:51 Dose: 25 mg Documented By: Admin: 03/03/22 08:38 Dose: 25 mg Documented By: Admin: 03/02/22 17:41 Dose: 25 mg Documented By: Admin: 03/02/22 07:29 Dose: 25 mg Documented By: Admin: 03/01/22 17:24 Dose: 25 mg Documented By: Admin: 03/01/22 09:08 Dose: 25 mg Documented By: Admin: 02/28/22 16:52 Dose: 25 mg Documented By: Admin: 02/28/22 07:26 Dose: 25 mg Documented By: Admin: 02/27/22 16:58 Dose: 25 mg Documented By: Admin: 02/27/22 07:59 Dose: 25 mg Documented By: AR Diagnostic Test (Pha) (Accu-Chek 1 Each Strip) 1 each FS ACHS RODRIGUE Last Admin: 03/22/22 11:17 Dose: Not Given Documented By: Admin: 03/22/22 07:59 Dose: Not Given Documented By: Admin: 03/21/22 21:26 Dose: Not Given Documented By: Admin: 03/21/22 16:39 Dose: Not Given Documented By: Admin: 03/21/22 10:49 Dose: Not Given Documented By: Admin: 03/21/22 07:10 Dose: Not Given Documented By: Admin: 03/20/22 19:09 Dose: Not Given Documented By: Admin: 03/20/22 16:17 Dose: Not Given Documented By: Admin: 03/20/22 10:57 Dose: Not Given Documented By: Admin: 03/20/22 06:54 Dose: Not Given Documented By: Admin: 03/19/22 21:25 Dose: Not Given Documented By: Admin: 03/19/22 16:36 Dose: Not Given Documented By: Admin: 03/19/22 11:23 Dose: Not Given Documented By: Admin: 03/19/22 07:12 Dose: 1 each Documented By: EVARISTO Co-signed By: ALEX Admin: 03/18/22 21:36 Dose: 1 each Documented By: Admin: 03/18/22 17:03 Dose: 1 each Documented By: Admin: 03/18/22 12:29 Dose: 1 each Documented By: Admin: 03/18/22 07:07 Dose: 1 each Documented By: Admin: 03/17/22 20:33 Dose: 1 each Documented By: Admin: 03/17/22 16:54 Dose: 1 each Documented By: Admin: 03/17/22 11:51 Dose: 1 each Documented By: Admin: 03/17/22 11:20 Dose: Not Given Documented By: Admin: 03/16/22 20:04 Dose: 1 each Documented By: JACOB Guaifenesin (Guaifenesin 600 Mg Tab.Sr.12h) 600 mg PO Q8H PRN PRN Reason: Congestion Last Admin: 03/18/22 05:13 Dose: 600 mg Documented By: Admin: 03/16/22 20:20 Dose: 600 mg Documented By: Admin: 03/16/22 03:00 Dose: 600 mg Documented By: Admin: 03/15/22 18:56 Dose: 600 mg Documented By: JACOB Heparin Sodium (Porcine) (Heparin 5,000 Unit/Ml Vial) 5,000 unit SQ Q12 [facility] Admin: 03/22/22 11:15 Dose: Not Given Documented By: Admin: 03/21/22 21:26 Dose: Not Given Documented By: Admin: 03/21/22 07:56 Dose: Not Given Documented By: Admin: 03/20/22 19:09 Dose: Not Given Documented By: Admin: 03/20/22 08:05 Dose: Not Given Documented By: Admin: 03/19/22 21:28 Dose: Not Given Documented By: Admin: 03/19/22 17:00 Dose: Not Given Documented By: Admin: 03/18/22 21:49 Dose: 5,000 unit Documented By: Admin: 03/18/22 08:15 Dose: 5,000 unit Documented By: Admin: 03/17/22 21:34 Dose: 5,000 unit Documented By: Admin: 03/17/22 11:10 Dose: 5,000 unit Documented By: Admin: 03/16/22 20:19 Dose: 5,000 unit Documented By: Admin: 03/16/22 08:37 Dose: 5,000 unit Documented By: Admin: 03/15/22 21:52 Dose: 5,000 unit Documented By: Admin: 03/15/22 08:56 Dose: 5,000 unit Documented By: Admin: 03/14/22 20:08 Dose: 5,000 unit Documented By: [email or web address] Admin: 03/14/22 08:56 Dose: 5,000 unit Documented By: Admin: 03/13/22 21:32 Dose: 5,000 unit Documented By: Admin: 03/13/22 08:20 Dose: 5,000 unit Documented By: EVARISTO Co-signed By: ZABRINA Admin: 03/12/22 21:42 Dose: 5,000 unit Documented By: Admin: 03/12/22 08:33 Dose: 5,000 unit Documented By: Admin: 03/11/22 21:49 Dose: 5,000 unit Documented By: Admin: 03/11/22 09:06 Dose: 5,000 unit Documented By: Admin: 03/10/22 22:01 Dose: 5,000 unit Documented By: Admin: 03/10/22 09:47 Dose: 5,000 unit Documented By: Admin: 03/09/22 21:47 Dose: 5,000 unit Documented By: Admin: 03/09/22 10:06 Dose: 5,000 unit Documented By: Admin: 03/08/22 20:21 Dose: 5,000 unit Documented By: Admin: 03/08/22 08:44 Dose: 5,000 unit Documented By: Admin: 03/07/22 21:52 Dose: 5,000 unit Documented By: [email or web address] Admin: 03/07/22 08:42 Dose: 5,000 unit Documented By: Admin: 03/06/22 21:28 Dose: 5,000 unit Documented By: Admin: 03/06/22 08:45 Dose: 5,000 unit Documented By: Admin: 03/05/22 21:06 Dose: 5,000 unit Documented By: Admin: 03/05/22 08:42 Dose: 5,000 unit Documented By: Admin: 03/04/22 21:17 Dose: 5,000 unit Documented By: Admin: 03/04/22 08:10 Dose: 5,000 unit Documented By: Admin: 03/03/22 22:16 Dose: 5,000 unit Documented By: Admin: 03/03/22 09:12 Dose: 5,000 unit Documented By: Admin: 03/02/22 20:44 Dose: 5,000 unit Documented By: Admin: 03/02/22 09:49 Dose: 5,000 unit Documented By: Admin: 03/01/22 21:41 Dose: 5,000 unit Documented By: Admin: 03/01/22 09:08 Dose: 5,000 unit Documented By: Admin: 02/28/22 20:17 Dose: 5,000 unit Documented By: Admin: 02/28/22 08:30 Dose: 5,000 unit Documented By: Admin: 02/27/22 20:39 Dose: 5,000 unit Documented By: Admin: 02/27/22 09:19 Dose: 5,000 unit Documented By: AR Heparin Sodium (Porcine) (Heparin Flush 10 Units/Ml 5 Ml Syringe) 2 ml IV Q12 [facility] Admin: 03/22/22 11:16 Dose: Not Given Documented By: Admin: 03/21/22 21:26 Dose: Not Given Documented By: Admin: 03/21/22 08:08 Dose: 2 ml Documented By: EVARISTO Co-signed By: KIARA Admin: 03/20/22 19:10 Dose: Not Given Documented By: Admin: 03/20/22 08:14 Dose: 2 ml Documented By: EVARISTO Co-signed By: ALEX Admin: 03/19/22 21:34 Dose: 2 ml Documented By: Admin: 03/19/22 09:15 Dose: 2 ml Documented By: EVARISTO Co-signed By: ALEX Admin: 03/18/22 21:49 Dose: 2 ml Documented By: Admin: 03/18/22 08:48 Dose: 2 ml Documented By: Admin: 03/17/22 21:32 Dose: 2 ml Documented By: Admin: 03/17/22 11:19 Dose: 2 ml Documented By: Admin: 03/16/22 20:19 Dose: 2 ml Documented By: Admin: 03/16/22 08:39 Dose: 2 ml Documented By: Admin: 03/15/22 21:53 Dose: 2 ml Documented By: Admin: 03/15/22 08:57 Dose: 2 ml Documented By: Admin: 03/14/22 20:08 Dose: 2 ml Documented By: Admin: 03/14/22 08:56 Dose: 2 ml Documented By: Admin: 03/13/22 21:32 Dose: 2 ml Documented By: Admin: 03/13/22 08:21 Dose: 2 ml Documented By: EVARISTO Co-signed By: ZABRINA Admin: 03/12/22 21:44 Dose: 2 ml Documented By: Admin: 03/12/22 08:34 Dose: 2 ml Documented By: Admin: 03/11/22 21:48 Dose: 2 ml Documented By: Admin: 03/11/22 09:07 Dose: 2 ml Documented By: Admin: 03/10/22 22:02 Dose: 2 ml Documented By: Admin: 03/10/22 14:01 Dose: 2 ml Documented By: Admin: 03/10/22 11:46 Dose: 2 ml Documented By: Admin: 03/10/22 11:19 Dose: 2 ml Documented By: Admin: 03/09/22 21:47 Dose: 2 ml Documented By: Admin: 03/09/22 13:01 Dose: 2 ml Documented By: Admin: 03/09/22 09:30 Dose: Not Given Documented By: Admin: 03/08/22 20:05 Dose: Not Given Documented By: Admin: 03/08/22 08:56 Dose: 2 ml Documented By: Admin: 03/07/22 21:54 Dose: 2 ml Documented By: [email or web address] Admin: 03/07/22 08:43 Dose: 2 ml Documented By: Admin: 03/06/22 21:29 Dose: 2 ml Documented By: Admin: 03/06/22 08:46 Dose: 2 ml Documented By: Admin: 03/05/22 21:08 Dose: 2 ml Documented By: Admin: 03/05/22 08:42 Dose: 2 ml Documented By: Admin: 03/04/22 21:18 Dose: 2 ml Documented By: Admin: 03/04/22 08:10 Dose: 2 ml Documented By: Admin: 03/03/22 22:17 Dose: 2 ml Documented By: Admin: 03/03/22 09:12 Dose: 2 ml Documented By: Admin: 03/02/22 20:44 Dose: 2 ml Documented By: Admin: 03/02/22 09:49 Dose: 2 ml Documented By: Admin: 03/01/22 21:41 Dose: 2 ml Documented By: Admin: 03/01/22 09:14 Dose: 2 ml Documented By: Admin: 02/28/22 20:18 Dose: 2 ml Documented By: Admin: 02/28/22 08:30 Dose: 2 ml Documented By: Admin: 02/27/22 20:40 Dose: 2 ml Documented By: JACQUELINE Hydralazine HCl (Hydralazine 20 Mg/Ml Vial) 20 mg IV Q4HP PRN PRN Reason: Hypertension Last Admin: 02/27/22 21:08 Dose: 20 mg Documented By: Admin: 02/27/22 06:54 Dose: 20 mg Documented By: Admin: 02/26/22 17:05 Dose: 20 mg Documented By: Admin: 02/26/22 01:18 Dose: 20 mg Documented By: Admin: 02/25/22 17:24 Dose: 20 mg Documented By: Admin: 02/25/22 10:30 Dose: 20 mg Documented By: Admin: 02/20/22 07:31 Dose: 20 mg Documented By: Admin: 02/17/22 05:10 Dose: 20 mg Documented By: Admin: 02/16/22 18:41 Dose: 20 mg Documented By: Admin: 02/16/22 11:50 Dose: 20 mg Documented By: [email or web address] Admin: 02/15/22 23:49 Dose: 20 mg Documented By: [email or web address] Hydromorphone HCl (Hydromorphone 1 Mg/Ml Syringe) 0 mg IV Q2HP PRN; Protocol PRN Reason: Per Pain Protocol Last Admin: 03/11/22 10:27 Dose: 1 mg Documented By: Admin: 03/09/22 15:58 Dose: 1 mg Documented By: Co-signed By: ZABRINA Admin: 03/08/22 13:08 Dose: 1 mg Documented By: Admin: 03/07/22 21:24 Dose: 1 mg Documented By: Admin: 03/06/22 08:44 Dose: 1 mg Documented By: Admin: 03/04/22 17:53 Dose: 1 mg Documented By: Admin: 03/04/22 11:29 Dose: 1 mg Documented By: Admin: 03/03/22 04:20 Dose: 1 mg Documented By: Admin: 03/02/22 09:52 Dose: 1 mg Documented By: Admin: 03/02/22 05:05 Dose: 1 mg Documented By: Admin: 03/01/22 21:42 Dose: 1 mg Documented By: Admin: 03/01/22 19:03 Dose: 1 mg Documented By: Admin: 03/01/22 14:38 Dose: 1 mg Documented By: [email or web address] Admin: 03/01/22 09:08 Dose: 1 mg Documented By: Admin: 03/01/22 05:14 Dose: 1 mg Documented By: Admin: 02/28/22 16:58 Dose: 1 mg Documented By: Admin: 02/28/22 14:54 Dose: 1 mg Documented By: Admin: 02/28/22 10:05 Dose: 1 mg Documented By: Admin: 02/28/22 07:26 Dose: 1 mg Documented By: Admin: 02/28/22 03:16 Dose: 1 mg Documented By: Admin: 02/27/22 21:50 Dose: 1 mg Documented By: Admin: 02/27/22 19:21 Dose: 1 mg Documented By: Admin: 02/27/22 17:11 Dose: 1 mg Documented By: Admin: 02/27/22 14:09 Dose: 1 mg Documented By: AR Hydroxyzine HCl (Hydroxyzine 25 Mg Tablet) 25 mg PO TIDP PRN PRN Reason: Allergic Symptoms Last Admin: 03/21/22 19:47 Dose: 25 mg Documented By: Admin: 03/20/22 19:06 Dose: 25 mg Documented By: Admin: 03/16/22 20:20 Dose: 25 mg Documented By: Admin: 03/15/22 21:53 Dose: 25 mg Documented By: Admin: 03/14/22 20:08 Dose: 25 mg Documented By: Admin: 03/13/22 21:26 Dose: 25 mg Documented By: Admin: 03/12/22 21:41 Dose: 25 mg Documented By: Admin: 03/12/22 07:22 Dose: 25 mg Documented By: Admin: 03/11/22 21:47 Dose: 25 mg Documented By: Admin: 03/11/22 15:10 Dose: 25 mg Documented By: Admin: 03/10/22 22:01 Dose: 25 mg Documented By: Admin: 03/09/22 15:57 Dose: 25 mg Documented By: Co-signed By: ZABRINA Lactated Ringer's (Lactated Ringers) 1,000 mls @ 125 mls/hr IV .Q8H RODRIGUE Last Admin: 03/22/22 05:01 Dose: 125 mls/hr Documented By: Infusion: 03/22/22 05:01 Dose: 125 mls/hr Documented By: Admin: 03/21/22 21:01 Dose: 125 mls/hr Documented By: Infusion: 03/21/22 21:01 Dose: 125 mls/hr Documented By: Admin: 03/21/22 14:50 Dose: 125 mls/hr Documented By: [email or web address] Insulin Human Lispro (Insulin Lispro 1 Unit/0.01 Ml Unit) 0 unit SQ ACHS RODRIGUE; Protocol Last Admin: 03/22/22 11:17 Dose: Not Given Documented By: Admin: 03/22/22 07:59 Dose: Not Given Documented By: Admin: 03/21/22 21:26 Dose: Not Given Documented By: Admin: 03/21/22 16:39 Dose: Not Given Documented By: Admin: 03/21/22 10:49 Dose: Not Given Documented By: Admin: 03/21/22 07:10 Dose: Not Given Documented By: Admin: 03/20/22 19:10 Dose: Not Given Documented By: Admin: 03/20/22 16:17 Dose: Not Given Documented By: Admin: 03/20/22 10:57 Dose: Not Given Documented By: Admin: 03/20/22 06:54 Dose: Not Given Documented By: Admin: 03/19/22 21:28 Dose: Not Given Documented By: Admin: 03/19/22 16:36 Dose: Not Given Documented By: Admin: 03/19/22 11:23 Dose: Not Given Documented By: Admin: 03/19/22 07:12 Dose: Not Given Documented By: Admin: 03/18/22 21:50 Dose: Not Given Documented By: Admin: 03/18/22 17:07 Dose: 4 units Documented By: Admin: 03/18/22 12:32 Dose: 4 units Documented By: Admin: 03/18/22 07:08 Dose: 2 units Documented By: Admin: 03/17/22 20:33 Dose: Not Given Documented By: Admin: 03/17/22 17:08 Dose: 8 units Documented By: Admin: 03/17/22 11:52 Dose: Not Given Documented By: Admin: 03/17/22 11:20 Dose: Not Given Documented By: Admin: 03/16/22 20:04 Dose: Not Given Documented By: LSCULLY Labetalol HCl (Labetalol 5 Mg/Ml Ml) 10 - 20 mg IV Q2HP PRN PRN Reason: Hypertension Last Admin: 02/27/22 23:42 Dose: 20 mg Documented By: Admin: 02/27/22 01:28 PDT Dose: 20 mg Documented By: Admin: 02/26/22 01:51 Dose: 20 mg Documented By: Admin: 02/25/22 14:05 Dose: 20 mg Documented By: JESSICA Melatonin (Melatonin 3 Mg Tablet) 3 mg PO HSP PRN PRN Reason: Sleep Last Admin: 03/21/22 19:47 Dose: 3 mg Documented By: Admin: 03/18/22 23:23 Dose: 3 mg Documented By: Admin: 03/17/22 21:34 Dose: 3 mg Documented By: Admin: 03/16/22 20:20 Dose: 3 mg Documented By: Admin: 03/15/22 21:53 Dose: 3 mg Documented By: Admin: 03/14/22 20:08 Dose: 3 mg Documented By: Admin: 03/13/22 21:26 Dose: 3 mg Documented By: Admin: 03/12/22 21:41 Dose: 3 mg Documented By: Admin: 03/11/22 21:48 Dose: 3 mg Documented By: Admin: 03/10/22 22:02 Dose: 3 mg Documented By: Admin: 03/09/22 21:49 Dose: 3 mg Documented By: Admin: 03/08/22 20:22 Dose: 3 mg Documented By: ZAY Metoclopramide HCl (Metoclopramide 10 Mg/2 Ml Vial) 10 mg IV Q6 [facility] Last Admin: 03/22/22 11:18 Dose: Not Given Documented By: Admin: 03/22/22 05:01 Dose: Not Given Documented By: Admin: 03/22/22 00:15 Dose: Not Given Documented By: Admin: 03/21/22 16:39 Dose: Not Given Documented By: Admin: 03/21/22 11:16 Dose: Not Given Documented By: Admin: 03/21/22 05:38 Dose: Not Given Documented By: Admin: 03/21/22 01:00 Dose: Not Given Documented By: Admin: 03/20/22 16:18 Dose: Not Given Documented By: Admin: 03/20/22 11:22 Dose: Not Given Documented By: Admin: 03/20/22 05:11 Dose: Not Given Documented By: Admin: 03/20/22 01:41 Dose: Not Given Documented By: Admin: 03/19/22 16:57 Dose: Not Given Documented By: Admin: 03/19/22 11:33 Dose: Not Given Documented By: Admin: 03/19/22 05:28 Dose: 10 mg Documented By: Admin: 03/18/22 23:23 Dose: 10 mg Documented By: Admin: 03/18/22 17:53 Dose: 10 mg Documented By: Admin: 03/18/22 13:14 Dose: 10 mg Documented By: Admin: 03/18/22 05:12 Dose: 10 mg Documented By: Admin: 03/17/22 23:34 Dose: 10 mg Documented By: Admin: 03/17/22 17:14 Dose: 10 mg Documented By: Admin: 03/17/22 12:14 Dose: 10 mg Documented By: Admin: 03/17/22 04:58 Dose: 10 mg Documented By: Admin: 03/17/22 00:52 Dose: 10 mg Documented By: Admin: 03/16/22 16:26 Dose: 10 mg Documented By: Admin: 03/16/22 12:35 Dose: 10 mg Documented By: Admin: 03/16/22 05:29 Dose: 10 mg Documented By: Admin: 03/16/22 00:06 Dose: 10 mg Documented By: Admin: 03/15/22 16:38 Dose: 10 mg Documented By: Admin: 03/15/22 11:37 Dose: 10 mg Documented By: Admin: 03/15/22 05:29 Dose: 10 mg Documented By: Admin: 03/14/22 23:24 Dose: 10 mg Documented By: [email or web address] Admin: 03/14/22 17:15 Dose: 10 mg Documented By: Admin: 03/14/22 13:09 Dose: 10 mg Documented By: Admin: 03/14/22 05:24 Dose: 10 mg Documented By: Admin: 03/14/22 00:38 Dose: 10 mg Documented By: Admin: 03/13/22 17:38 Dose: 10 mg Documented By: EVARISTO Co-signed By: ZABRINA Admin: 03/13/22 12:35 Dose: 10 mg Documented By: EVARISTO Co-signed By: ZABRINA Admin: 03/13/22 05:45 Dose: 10 mg Documented By: Admin: 03/13/22 00:53 Dose: 10 mg Documented By: Admin: 03/12/22 17:26 Dose: 10 mg Documented By: Admin: 03/12/22 12:02 Dose: 10 mg Documented By: Admin: 03/12/22 05:16 Dose: 10 mg Documented By: Admin: 03/12/22 00:12 Dose: 10 mg Documented By: Admin: 03/11/22 17:56 Dose: 10 mg Documented By: Admin: 03/11/22 12:51 Dose: 10 mg Documented By: Admin: 03/11/22 05:06 Dose: 10 mg Documented By: Admin: 03/10/22 23:22 Dose: 10 mg Documented By: Admin: 03/10/22 16:57 Dose: 10 mg Documented By: Admin: 03/10/22 11:18 Dose: 10 mg Documented By: Admin: 03/10/22 05:38 Dose: 10 mg Documented By: Admin: 03/10/22 00:22 Dose: 10 mg Documented By: Admin: 03/09/22 18:13 Dose: 10 mg Documented By: Admin: 03/09/22 13:46 Dose: 10 mg Documented By: Admin: 03/09/22 05:37 Dose: 10 mg Documented By: Admin: 03/08/22 23:38 Dose: 10 mg Documented By: Admin: 03/08/22 17:28 Dose: 10 mg Documented By: Admin: 03/08/22 12:58 Dose: 10 mg Documented By: Admin: 03/08/22 06:25 Dose: 10 mg Documented By: Admin: 03/08/22 00:37 Dose: 10 mg Documented By: Admin: 03/07/22 17:26 Dose: 10 mg Documented By: Admin: 03/07/22 11:32 Dose: 10 mg Documented By: Admin: 03/07/22 05:31 Dose: 10 mg Documented By: Admin: 03/07/22 00:07 Dose: 10 mg Documented By: Admin: 03/06/22 17:24 Dose: 10 mg Documented By: Admin: 03/06/22 10:56 Dose: 10 mg Documented By: Admin: 03/06/22 06:10 Dose: 10 mg Documented By: Admin: 03/06/22 00:27 Dose: 10 mg Documented By: Admin: 03/05/22 17:36 Dose: 10 mg Documented By: Admin: 03/05/22 12:03 Dose: 10 mg Documented By: Admin: 03/05/22 05:10 Dose: 10 mg Documented By: Admin: 03/05/22 00:06 Dose: 10 mg Documented By: Admin: 03/04/22 17:57 Dose: 10 mg Documented By: Admin: 03/04/22 12:39 Dose: 10 mg Documented By: Admin: 03/04/22 05:50 Dose: 10 mg Documented By: Admin: 03/04/22 00:04 Dose: 10 mg Documented By: Admin: 03/03/22 17:07 Dose: 10 mg Documented By: Admin: 03/03/22 12:32 Dose: 10 mg Documented By: Admin: 03/03/22 05:12 Dose: 10 mg Documented By: Admin: 03/03/22 00:20 Dose: 10 mg Documented By: Admin: 03/02/22 17:42 Dose: 10 mg Documented By: Admin: 03/02/22 11:54 Dose: 10 mg Documented By: Admin: 03/02/22 05:05 Dose: 10 mg Documented By: Admin: 03/01/22 23:57 Dose: 10 mg Documented By: Admin: 03/01/22 17:24 Dose: 10 mg Documented By: Admin: 03/01/22 12:23 Dose: 10 mg Documented By: Admin: 03/01/22 05:13 Dose: 10 mg Documented By: Admin: 02/28/22 23:28 Dose: 10 mg Documented By: Admin: 02/28/22 16:58 Dose: 10 mg Documented By: Admin: 02/28/22 11:34 Dose: 10 mg Documented By: Admin: 02/28/22 05:23 Dose: 10 mg Documented By: Admin: 02/27/22 23:42 Dose: 10 mg Documented By: Admin: 02/27/22 16:58 Dose: 10 mg Documented By: Admin: 02/27/22 11:48 Dose: 10 mg Documented By: Admin: 02/27/22 05:35 Dose: 10 mg Documented By: Admin: 02/27/22 00:49 Dose: 10 mg Documented By: Admin: 02/26/22 17:09 Dose: 10 mg Documented By: Admin: 02/26/22 12:58 Dose: 10 mg Documented By: Admin: 02/26/22 05:14 Dose: 10 mg Documented By: Admin: 02/26/22 01:05 Dose: 10 mg Documented By: Admin: 02/25/22 17:17 Dose: 10 mg Documented By: Admin: 02/25/22 11:29 Dose: 10 mg Documented By: Admin: 02/25/22 05:29 Dose: 10 mg Documented By: Admin: 02/25/22 00:40 Dose: 10 mg Documented By: Admin: 02/24/22 16:59 Dose: 10 mg Documented By: Admin: 02/24/22 11:56 Dose: 10 mg Documented By: Admin: 02/24/22 06:03 Dose: 10 mg Documented By: Admin: 02/24/22 00:05 Dose: 10 mg Documented By: Admin: 02/23/22 18:11 Dose: 10 mg Documented By: Admin: 02/23/22 13:57 Dose: 10 mg Documented By: Admin: 02/23/22 05:02 Dose: 10 mg Documented By: Admin: 02/23/22 00:00 Dose: 10 mg Documented By: Admin: 02/22/22 17:26 Dose: 10 mg Documented By: Admin: 02/22/22 11:51 Dose: 10 mg Documented By: Admin: 02/22/22 05:52 Dose: 10 mg Documented By: Admin: 02/21/22 23:29 Dose: 10 mg Documented By: Admin: 02/21/22 17:51 Dose: 10 mg Documented By: Admin: 02/21/22 12:50 Dose: 10 mg Documented By: Admin: 02/21/22 05:17 Dose: 10 mg Documented By: Admin: 02/20/22 23:36 Dose: 10 mg Documented By: Admin: 02/20/22 17:30 Dose: 10 mg Documented By: Admin: 02/20/22 12:29 Dose: 10 mg Documented By: Admin: 02/20/22 05:57 Dose: 10 mg Documented By: Admin: 02/19/22 23:16 Dose: 10 mg Documented By: Admin: 02/19/22 17:03 Dose: 10 mg Documented By: Admin: 02/19/22 12:17 Dose: 10 mg Documented By: AINSLEY Nystatin (Nystatin Crm 1 Dose Tube) 1 dose TOPICAL TID RODRIGUE Last Admin: 03/22/22 11:16 Dose: Not Given Documented By: Admin: 03/21/22 21:26 Dose: Not Given Documented By: Admin: 03/21/22 16:38 Dose: Not Given Documented By: Admin: 03/21/22 07:56 Dose: Not Given Documented By: Admin: 03/20/22 19:10 Dose: Not Given Documented By: Admin: 03/20/22 13:55 Dose: Not Given Documented By: Admin: 03/20/22 08:05 Dose: Not Given Documented By: Admin: 03/19/22 21:34 Dose: 1 dose Documented By: Admin: 03/19/22 13:53 Dose: 1 dose Documented By: EVARISTO Co-signed By: ALEX Admin: 03/19/22 09:15 Dose: Not Given Documented By: Admin: 03/18/22 21:50 Dose: 1 dose Documented By: Admin: 03/18/22 15:43 Dose: Not Given Documented By: Admin: 03/18/22 08:00 Dose: Not Given Documented By: Admin: 03/17/22 20:33 Dose: Not Given Documented By: Admin: 03/17/22 15:01 Dose: Not Given Documented By: Admin: 03/17/22 11:53 Dose: Not Given Documented By: Admin: 03/16/22 20:20 Dose: Not Given Documented By: Admin: 03/16/22 16:26 Dose: 1 dose Documented By: Admin: 03/16/22 08:39 Dose: 1 dose Documented By: Admin: 03/15/22 21:53 Dose: 1 dose Documented By: Admin: 03/15/22 14:17 Dose: 1 dose Documented By: Admin: 03/15/22 08:58 Dose: 1 dose Documented By: Admin: 03/14/22 20:08 Dose: 1 dose Documented By: Admin: 03/14/22 14:42 Dose: 1 dose Documented By: Admin: 03/14/22 08:56 Dose: 1 dose Documented By: Admin: 03/13/22 21:33 Dose: 1 dose Documented By: Admin: 03/13/22 15:24 Dose: 1 dose Documented By: EVARISTO Co-signed By: ZABRINA Admin: 03/13/22 08:20 Dose: 1 dose Documented By: EVARISTO Co-signed By: ZABRINA Admin: 03/12/22 21:43 Dose: 1 dose Documented By: Admin: 03/12/22 15:36 Dose: 1 dose Documented By: Admin: 03/12/22 08:34 Dose: 1 dose Documented By: [email or web address] Admin: 03/11/22 21:50 Dose: 1 dose Documented By: Admin: 03/11/22 15:37 Dose: 1 dose Documented By: Admin: 03/11/22 09:07 Dose: 1 dose Documented By: Admin: 03/10/22 21:56 Dose: 1 dose Documented By: Admin: 03/10/22 14:57 Dose: Not Given Documented By: Admin: 03/10/22 09:48 Dose: 1 dose Documented By: Admin: 03/09/22 20:25 Dose: Not Given Documented By: Admin: 03/09/22 16:07 Dose: Not Given Documented By: Admin: 03/09/22 09:31 Dose: Not Given Documented By: Admin: 03/08/22 20:23 Dose: Not Given Documented By: Admin: 03/08/22 15:09 Dose: Not Given Documented By: Admin: 03/08/22 11:41 Dose: Not Given Documented By: [email or web address] Admin: 03/07/22 21:54 Dose: 1 dose Documented By: [email or web address] Admin: 03/07/22 15:53 Dose: 1 dose Documented By: [email or web address] Admin: 03/07/22 08:42 Dose: 1 dose Documented By: Admin: 03/06/22 21:30 Dose: Not Given Documented By: Admin: 03/06/22 14:43 Dose: 1 dose Documented By: Admin: 03/06/22 10:06 Dose: Not Given Documented By: Admin: 03/05/22 21:09 Dose: Not Given Documented By: Admin: 03/05/22 15:02 Dose: 1 dose Documented By: Admin: 03/05/22 11:29 Dose: Not Given Documented By: Admin: 03/04/22 21:18 Dose: Not Given Documented By: Admin: 03/04/22 15:43 Dose: 1 dose Documented By: Admin: 03/04/22 08:13 Dose: 1 dose Documented By: Admin: 03/03/22 22:17 Dose: Not Given Documented By: Admin: 03/03/22 16:57 Dose: Not Given Documented By: Admin: 03/03/22 09:27 Dose: 1 dose Documented By: Admin: 03/02/22 20:46 Dose: 1 dose Documented By: Admin: 03/02/22 16:26 Dose: Not Given Documented By: Admin: 03/02/22 16:25 Dose: 1 dose Documented By: Admin: 03/01/22 21:40 Dose: 1 dose Documented By: JACEK Octreotide Acetate (Octreotide Acetate 100 Mcg/Ml Vial) 100 mcg SQ TID RODRIGUE [facility] Admin: 03/22/22 11:16 Dose: Not Given Documented By: Admin: 03/21/22 21:26 Dose: Not Given Documented By: Admin: 03/21/22 16:38 Dose: Not Given Documented By: Admin: 03/21/22 07:57 Dose: Not Given Documented By: Admin: 03/20/22 19:10 Dose: Not Given Documented By: Admin: 03/20/22 13:55 Dose: Not Given Documented By: Admin: 03/20/22 08:05 Dose: Not Given Documented By: Admin: 03/19/22 21:29 Dose: Not Given Documented By: Admin: 03/19/22 13:54 Dose: Not Given Documented By: Admin: 03/19/22 09:16 Dose: 100 mcg Documented By: EVARISTO Co-signed By: ALEX Admin: 03/18/22 21:49 Dose: 100 mcg Documented By: Admin: 03/18/22 15:47 Dose: 100 mcg Documented By: Admin: 03/18/22 11:21 Dose: 100 mcg Documented By: Admin: 03/17/22 21:34 Dose: 100 mcg Documented By: Admin: 03/17/22 15:07 Dose: 100 mcg Documented By: Admin: 03/17/22 11:44 Dose: 100 mcg Documented By: Admin: 03/16/22 20:19 Dose: 100 mcg Documented By: Admin: 03/16/22 16:26 Dose: 100 mcg Documented By: Admin: 03/16/22 08:38 Dose: 100 mcg Documented By: Admin: 03/15/22 21:52 Dose: 100 mcg Documented By: Admin: 03/15/22 14:30 Dose: 100 mcg Documented By: Admin: 03/15/22 10:22 Dose: 100 mcg Documented By: Admin: 03/14/22 20:10 Dose: 100 mcg Documented By: Admin: 03/14/22 14:43 Dose: 100 mcg Documented By: Admin: 03/14/22 10:09 Dose: 100 mcg Documented By: Admin: 03/13/22 21:31 Dose: 100 mcg Documented By: Admin: 03/13/22 16:01 Dose: 100 mcg Documented By: EVARISTO Co-signed By: ZABRINA Admin: 03/13/22 08:32 Dose: 100 mcg Documented By: EVARISTO Co-signed By: ZABRINA Admin: 03/12/22 21:42 Dose: 100 mcg Documented By: Admin: 03/12/22 15:36 Dose: 100 mcg Documented By: Admin: 03/12/22 08:33 Dose: 100 mcg Documented By: Admin: 03/11/22 21:50 Dose: 100 mcg Documented By: Admin: 03/11/22 15:37 Dose: 100 mcg Documented By: Admin: 03/11/22 09:14 Dose: 100 mcg Documented By: Admin: 03/10/22 22:00 Dose: 100 mcg Documented By: Admin: 03/10/22 15:13 Dose: 100 mcg Documented By: Admin: 03/10/22 09:48 Dose: 100 mcg Documented By: Admin: 03/09/22 21:47 Dose: 100 mcg Documented By: Admin: 03/09/22 18:13 Dose: 100 mcg Documented By: Admin: 03/09/22 10:06 Dose: 100 mcg Documented By: Admin: 03/08/22 20:42 Dose: 100 mcg Documented By: Admin: 03/08/22 14:16 Dose: 100 mcg Documented By: Admin: 03/08/22 08:56 Dose: 100 mcg Documented By: Admin: 03/07/22 21:52 Dose: 100 mcg Documented By: Admin: 03/07/22 15:47 Dose: 100 mcg Documented By: [email or web address] Admin: 03/07/22 08:42 Dose: 100 mcg Documented By: Admin: 03/06/22 21:29 Dose: 100 mcg Documented By: Admin: 03/06/22 14:43 Dose: 100 mcg Documented By: Admin: 03/06/22 08:45 Dose: 100 mcg Documented By: Admin: 03/05/22 22:55 Dose: 100 mcg Documented By: Admin: 03/05/22 15:02 Dose: 100 mcg Documented By: Admin: 03/05/22 08:43 Dose: 100 mcg Documented By: Admin: 03/04/22 21:18 Dose: 100 mcg Documented By: Admin: 03/04/22 15:43 Dose: 100 mcg Documented By: Admin: 03/04/22 08:12 Dose: 100 mcg Documented By: Admin: 03/03/22 19:30 Dose: 100 mcg Documented By: MIMI Oxycodone HCl (Oxycodone Hcl 5 Mg Tablet) 5 mg PO Q4-6HP PRN; Protocol PRN Reason: Per Pain Protocol Last Admin: 03/21/22 18:32 Dose: 5 mg Documented By: [email or web address] Admin: 03/16/22 00:09 Dose: 5 mg Documented By: Admin: 03/13/22 21:58 Dose: 5 mg Documented By: Admin: 03/09/22 15:55 Dose: 5 mg Documented By: Co-signed By: ZABRINA Admin: 03/07/22 17:26 Dose: 5 mg Documented By: Admin: 03/07/22 11:50 Dose: 5 mg Documented By: Admin: 03/06/22 16:42 Dose: 5 mg Documented By: Admin: 03/06/22 10:56 Dose: 5 mg Documented By: AR Promethazine HCl (Promethazine 25 Mg/Ml Vial) 12.5 mg IV Q4HP PRN; Protocol PRN Reason: Nausea/Vomiting Last Admin: 03/03/22 19:30 Dose: 12.5 mg Documented By: Admin: 03/03/22 09:13 Dose: 12.5 mg Documented By: Admin: 03/02/22 23:44 Dose: 12.5 mg Documented By: Admin: 02/27/22 23:42 Dose: 12.5 mg Documented By: Admin: 02/19/22 21:16 Dose: 12.5 mg Documented By: [email or web address] Admin: 02/17/22 07:12 Dose: 12.5 mg Documented By: [email or web address] Admin: 02/16/22 17:51 Dose: 12.5 mg Documented By: [email or web address] Tamsulosin HCl (Tamsulosin 0.4 Mg Capsule) 0.4 mg PO HS RODRIGUE Last Admin: 03/21/22 19:47 Dose: 0.4 mg Documented By: Admin: 03/20/22 19:06 Dose: 0.4 mg Documented By: Admin: 03/19/22 21:34 Dose: 0.4 mg Documented By: Admin: 03/18/22 21:49 Dose: 0.4 mg Documented By: Admin: 03/17/22 21:35 Dose: 0.4 mg Documented By: Admin: 03/16/22 20:20 Dose: 0.4 mg Documented By: Admin: 03/15/22 21:53 Dose: 0.4 mg Documented By: Admin: 03/14/22 20:08 Dose: 0.4 mg Documented By: Admin: 03/13/22 21:26 Dose: 0.4 mg Documented By: Admin: 03/12/22 21:41 Dose: 0.4 mg Documented By: Admin: 03/11/22 21:47 Dose: 0.4 mg Documented By: Admin: 03/10/22 21:59 Dose: 0.4 mg Documented By: Admin: 03/09/22 21:49 Dose: 0.4 mg Documented By: Admin: 03/08/22 20:22 Dose: 0.4 mg Documented By: Admin: 03/07/22 21:57 Dose: 0.4 mg Documented By: Admin: 03/06/22 21:29 Dose: 0.4 mg Documented By: Admin: 03/05/22 21:06 Dose: 0.4 mg Documented By: Admin: 03/04/22 21:17 Dose: 0.4 mg Documented By: Admin: 03/03/22 22:16 Dose: 0.4 mg Documented By: Admin: 03/02/22 20:45 Dose: 0.4 mg Documented By: Admin: 03/01/22 21:41 Dose: 0.4 mg Documented By: Admin: 02/28/22 20:17 Dose: 0.4 mg Documented By: Admin: 02/27/22 20:39 Dose: 0.4 mg Documented By: JACQUELINE Trazodone HCl (Trazodone Hcl 50 Mg Tablet) 50 mg PO HSP PRN PRN Reason: Insomnia Last Admin: 03/21/22 19:47 Dose: 50 mg Documented By: Admin: 03/20/22 19:06 Dose: 50 mg Documented By: Admin: 03/18/22 23:23 Dose: 50 mg Documented By: Admin: 03/17/22 21:35 Dose: 50 mg Documented By: Admin: 03/16/22 20:20 Dose: 50 mg Documented By: Admin: 03/15/22 21:53 Dose: 50 mg Documented By: Admin: 03/14/22 20:08 Dose: 50 mg Documented By: Admin: 03/13/22 21:26 Dose: 50 mg Documented By: JACOB Shift Summary 03/22/22 03:25 Shift Summary by Hui Estevez Registration Status: 02/15 - IP M/S Date of Surgery (if applicable): 02/17 ERCP with stone extraction(César) 02/18 Diagnostic laparoscopy, open cholecystectomy, closure of small bowel enterotomy (Angelo) 02/23 Emergent Laparotomy with microperforations of the small bowel x 3, large hematoma of anterior abdominal wall left side, localized peritonitis, central line placed. 03/09 PICC GEETHA placed 03/17 Wide excision of fat necrosis of abdominal wall 10 x12cm w/ W[place] replaced. 03/21 - ERCP Pertinent Medical Dx/Issue(s): HTN, BPH, CKD, Anxiety Skin/Wound Care: Midline incision, wound vac dressing changed 03/19 CDI. TREVER to RUQ, minimal purulant drainage. Vital Signs with Trends: VSS on RA. Neuro : A&OX4. The patient is pleasant but is refusing all scheduled meds Ambulation status : SBA FWW Diet : Bowel sounds active. CLD Pain management (acute vs. chronic): Mild pain to abdominal incision r/t drsg change, oxy x1 Lab/Rad (abnormals, trends): WNL Urinary output greater than 30mL/hr? Yes. Voids per urinal. Date of last BM: 03/21/22. Lines/Tubes: PICC to GEETHA, all ports flush, no blood return; white is sluggish. RW PIV SLd Recommendations/Questions for MD: None. Discharge Plan (needs, disposition, etc): DC home today, states he doesn't need HH Initialized on 03/22/22 03:25 - END OF NOTE
--- NOTE | 2022-03-22 14:19 | ERCP Procedure Note ---
ERCP Procedure Note Procedure Information Patient information: Note initiated : 03/22/22 at 2:18 pm Patient: Jonas Noble 72 y/o M admitted on 02/18/22 for bowel obstruction- Cholelithiasis. Pre-op diagnosis general: Common bile duct stone. Post-op diagnosis general: Common bile duct stone. Date of Procedure: 03/21/22 Procedure: ERCP with Stone Extraction Procedure narrative: The procedures, alternatives and risks were discussed with the patient and the patient's questions were answered. With endoscopist-administered intravenous sedation, the Olympus side viewing operating duodenoscope was introduced into the esophagus and advanced to the second part of the duodenum without difficulty. The ampulla of Vater has undergone a previous papillotomy. The bile duct was selectively cannulated taking care to avoid the pancreatic duct and cholangiogram obtained. The bile duct was dilated and obstructed with multiple common duct stones. All visible stones were extracted with balloon techniques. At the end of the procedure, the bile duct appeared to be cleared of all stones. The scope was withdrawn. Assessment: Common bile duct stone.
--- NOTE | 2022-03-22 19:09 | XRay Report ---
INDICATION: ERCP Protocol TECHNIQUE: ERCP was performed by Dr. Lindsey. 2 minutes 11 seconds fluoroscopy utilized. Spot films demonstrate multiple filling defects within the common bile duct. Findings are consistent with choledocholithiasis. Stones were removed with balloon extraction technique. IMPRESSION: ERCP performed by Dr. Lindsey. Balloon extraction of common bile duct stones performed Interpreted and Authenticated by: Alonzo Alejandra 03/22/22
--- NOTE | 2022-03-24 13:59 | Operative Note ---
DATE OF OPERATION: 03/17/2022 PREOPERATIVE DIAGNOSIS: Chronic abdominal wall abscess. POSTOPERATIVE DIAGNOSES: Extensive fat necrosis of abdominal wall measuring 10 x 12 cm with abscess formation. PROCEDURE: 1. Wide excision of fat necrosis of abdominal wall, 12 x 10 cm 2. Application of wound VAC system. SURGEON: Dominguez Stephens M.D. FINDINGS: Deep fat necrosis of abdominal wall extending from the midline about 12 cm and with a width of 10 cm. There was preservation of the fascia without any evidence of fascial necrosis. DESCRIPTION OF PROCEDURE: Under general anesthesia, the wound VAC was taken off. The abdominal wall was prepped and draped in a sterile field. There were two openings on the right lateral side of the abdominal wall in the mid portion of the incision that had purulent drainage. The two openings were connected and inspection of the cavity revealed extensive severe fat necrosis. A radial incision was made from the midline incision to the furthest extent of the necrotic tissue. All of the necrotic tissue was removed and the cavity was curetted. The muscle and fascia appeared to be intact. Copious irrigation was carried out. Hemostasis was achieved with electrocautery. Further irrigation was carried out. A wound VAC was then applied using white foam Granufoam and the standard cover. The patient tolerated the procedure well. He was awakened and transferred to the postanesthetic care unit in satisfactory condition. LCS:joel Job ID: [id number] Doc ID: [id number] Dominguez Stephens M.D.
== END 2022-03-22 15:00 | disposition home health service (06) | DRG 414 ==
LOC: MEDSUR 15:28 → ED 15:28 → MEDSUR 20:18 → ICU 02-20 08:15 → MEDSUR 02-22 23:40 → ICU 02-23 13:27 → MEDSUR 02-25 20:07
PROVIDERS: ADMIT Family Medicine Adult Medicine; ATTEND Family Medicine Adult Medicine